=== PATIENT | male | born 1940 | race Two or more races ===

== ENCOUNTER 2016-11-12 01:17 | Inpatient (IN) | payer OTHER ==
[2016-11-12] MEDS ORDERED: PANTOPRAZOLE SODIUM 80 MG in SODIUM CHLORIDE 100 ML IVPB ONE (01:28)
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
[2016-11-12 02:08] LABS: BASOPHIL 0.1 % (0-2.0); EOSINOPHIL 0.7 % (0-4.5); MCH 32.3 pg (25.7-33.7); MCHC 33.1 g/dl (32.0-35.9); MEAN CELL VOLUME 97.6 fl (80-96); MEAN PLT VOLUME 11.5 fl (7.5-11.1); NEUTROPHILS 88.8 % (42.8-82.8); PLATELET COUNT 43 K/MM3 (134-434); RDW 23.4 % (11.9-15.9); WHITE BLOOD COUNT 4.1 K/mm3 (4.0-10.0)
[2016-11-12] MEDS ORDERED: NOREPINEPHRINE BITARTRATE 4 MG/4 ML ML IV ONE ×3 (02:18→23:10)
[2016-11-12 02:20] LABS: INR 1.74 (0.82-1.09); PROTHROMBIN TIME (PATIENT) 19.4 SEC (9.98-11.88)
[2016-11-12] MEDS ORDERED: PANTOPRAZOLE SODIUM 100 ML IVPB ONE (02:25)
[2016-11-12] MEDS ORDERED: PANTOPRAZOLE SODIUM 40 MG VIAL ONE (02:27)
[2016-11-12 02:33] LABS: ALBUMIN 1.7 g/dl (3.4-5.0); CALCIUM 7.5 mg/dL (8.5-10.1); CREATININE 2.1 mg/dL (0.7-1.3); MAGNESIUM 1.8 mg/dL (1.8-2.4); PHOSPHOROUS 3.3 mg/dL (2.5-4.9)
[2016-11-12 02:35] LABS: BILIRUBIN,TOTAL 0.7 mg/dL (0.2-1.0); TOT PROT 4.8 g/dl (6.4-8.2); TROPONIN I 0.04 ng/ml (0.00-0.05)
[2016-11-12] MEDS: NOREPINEPHRINE BITARTRATE 4,000 MCG in DEXTROSE 5%-WATER - 496 ML IV SCH (02:37)
[2016-11-12] MEDS ORDERED: SODIUM CHLORIDE 0.9% 500 ML INFUS.BAG IV ONE (02:55)
[2016-11-12] MEDS ORDERED: CEFEPIME HCL 2 GM VIAL (RESTRICTED TO ID) IVPB ONE (02:56)
[2016-11-12] MEDS ORDERED: VANCOMYCIN 1,000 MG in DEXTROSE 5%-WATER - 250 ML IVPB ONE (02:56)
[2016-11-12] MEDS ORDERED: VANCOMYCIN 1 GRAM (PRE-DOCKED) 250 ML IVPB ONE (03:18)
[2016-11-12] MEDS ORDERED: DOBUTAMINE 250 MG/D5W - 250 ML IV SCH (03:30)
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
[2016-11-12] MEDS: ALBUMIN HUMAN 25% 100 ML VIAL IVPB SCH ×4 (04:54→06:30)
[2016-11-12] MEDS ORDERED: FUROSEMIDE 40 MG/4 ML INJECTABLE VIAL IVPUSH ONE (06:28)
[2016-11-12 07:05] LABS: PLATELET ESTIMATE MOD DECREASED (NORMAL); POIKILOCYTOSIS 1+
[2016-11-12 07:06] LABS: ANISOCYTOSIS 3+
--- NOTE | 2016-11-12 07:29 | PN ---
Teaching Attending Note Name of Resident: Polo Doyle ATTENDING PHYSICIAN STATEMENT I saw and evaluated the patient. I reviewed the resident's note and discussed the case with the resident. I agree with the resident's findings and plan as documented. SUBJECTIVE: 76 y/o Male sent from [facility] for coffee ground drainage from peg tube. As per son patient recently discharged from [facility] yesterday and was reported to be stable. however son reports that patient was edematous since last Monday and for sometime before that. Patient is with trache and noncommunicative. OBJECTIVE: General: noncommunicative, responds to painful stimuli. Anasarca. HEENT: PERRLA, oral mucosa with dried blood and clenched teeth. CVS: RRR Lungs: Trachea and vent dependent with clear secretions Abd: Soft, peg with coffee ground drainage. Ext: b/l dried gangrene, lower ext. Musculoskeletal: Back and sacrum with multiple decubitus ulcers 1x2 to 9x9 : gamez no drainage, penis and testicles edematous. CBCD WBC 4.1 K/mm3 (4.0-10.0) 11/12/16 01:41 RBC 2.37 M/mm3 (4.00-5.60) L 11/12/16 01:41 Hgb 7.7 GM/dL (11.7-16.9) L 11/12/16 01:41 Hct 23.2 % (35.4-49) L 11/12/16 01:41 MCV 97.6 fl (80-96) H 11/12/16 01:41 MCHC 33.1 g/dl (32.0-35.9) 11/12/16 01:41 RDW 23.4 % (11.9-15.9) H 11/12/16 01:41 Plt Count 43 K/MM3 (134-434) L 11/12/16 01:41 MPV 11.5 fl (7.5-11.1) H 11/12/16 01:41 CMP Sodium 146 mmol/L (136-145) H 11/12/16 01:41 Potassium 3.8 mmol/L (3.5-5.1) 11/12/16 01:41 Chloride 107 mmol/L (98-107) 11/12/16 01:41 Carbon Dioxide 29 mmol/L (21-32) 11/12/16 01:41 Anion Gap 10 (8-16) 11/12/16 01:41 BUN 62 mg/dL (7-18) H 11/12/16 01:41 Creatinine 2.1 mg/dL (0.7-1.3) H 11/12/16 01:41 Creat Clearance w eGFR 30.78 (>60) 11/12/16 01:41 Random Glucose 110 mg/dL (74-106) H 11/12/16 01:41 Calcium 7.5 mg/dL (8.5-10.1) L 11/12/16 01:41 Total Bilirubin 0.7 mg/dL (0.2-1.0) 11/12/16 01:41 AST 109 U/L (15-37) H 11/12/16 01:41 ALT 78 U/L (12-78) 11/12/16 01:41 Alkaline Phosphatase 228 U/L (45-117) H 11/12/16 01:41 Total Protein 4.8 g/dl (6.4-8.2) L 11/12/16 01:41 Albumin 1.7 g/dl (3.4-5.0) L 11/12/16 01:41 CARDIAC ENZYMES Creatine Kinase 28 IU/L (39-308) L 11/12/16 01:41 Troponin I 0.04 ng/ml (0.00-0.05) 11/12/16 01:41 ASSESSMENT AND PLAN: Severe Sepsis with MOD- admit to ICU Levophed Lasix 40mg IVP stat Protonix drip Monitor VS closely Multiple decubitus ulcers Vancomycin and cefepime Wound care daily ID consult
[2016-11-12 08:22] LABS: BASOPHIL 0.4 % (0-2.0); EOSINOPHIL 0.5 % (0-4.5); MCH 31.9 pg (25.7-33.7); MCHC 32.8 g/dl (32.0-35.9); MEAN CELL VOLUME 97.3 fl (80-96); MEAN PLT VOLUME 9.7 fl (7.5-11.1); NEUTROPHILS 88.1 % (42.8-82.8); PLATELET COUNT 48 K/MM3 (134-434); RDW 23.7 % (11.9-15.9); WHITE BLOOD COUNT 5.8 K/mm3 (4.0-10.0)
[2016-11-12 08:36] LABS: INR 1.69 (0.82-1.09); PROTHROMBIN TIME (PATIENT) 18.8 SEC (9.98-11.88)
[2016-11-12] MEDS ORDERED: CEFEPIME HCL 1 GM VIAL (RESTRICTED TO ID) IVPB ONE (09:15)
[2016-11-12 09:24] LABS: ALBUMIN 2.6 g/dl (3.4-5.0); CALCIUM 7.6 mg/dL (8.5-10.1); MAGNESIUM 1.7 mg/dL (1.8-2.4)
[2016-11-12 09:30] LABS: BILIRUBIN,TOTAL 1.1 mg/dL (0.2-1.0); CREATININE 2.1 mg/dL (0.7-1.3); PHOSPHOROUS 3.1 mg/dL (2.5-4.9); TOT PROT 4.9 g/dl (6.4-8.2); TROPONIN I 0.08 ng/ml (0.00-0.05)
--- NOTE | 2016-11-12 09:38 | PN ---
Physical Exam: SUBJECTIVE: Patient seen and examined Patient is lying in bed nonverbal, positive for tracheostomy. OBJECTIVE: Vital Signs Temperature 91.4 F L 11/12/16 03:49 Pulse Rate 77 11/12/16 05:30 Respiratory Rate 26 H 11/12/16 07:20 Blood Pressure 90/60 11/12/16 05:30 O2 Sat by Pulse Oximetry (%) 100 11/12/16 04:17 GENERAL: The patient is nonverbal, lying in bed , positive for hypothermic blankets. contracted. HEAD: Normal with no signs of trauma. EYES: PERRL, eys closed , sclera anicteric, conjunctiva clear. ENT: moist oral mucosa , nares patent NECK: positive for trach. LUNGS: decreased Breath sounds BL, no accessory muscle use. Otherwise CTA , On ventilator, s/p tracheostomy HEART: Regular rate and rhythm, S1, S2 positive . ABDOMEN: Soft, nontender, nondistended, positive for G-tube, positive for pus drainage around the Gtube with necrosis around the tube . EXTREMITIES: 2+ pulses, warm, well-perfused, no edema. LLE IO access MUSCULOSKELETAL: Contracted, arms contracted, jaw clenched. Anasarca NEUROLOGICAL: Cranial nerves II through XII grossly intact. gag reflex present, responds to painful stimuli. PSYCH: Unable to access SKIN: Warm, dry, normal turgor,multiple pressure ulcers (on feet, calves, forehead, back, gluteal region) Laboratory Results - last 24 hr 11/12/16 11/12/16 08:10 08:10 WBC 5.8 D RBC 2.22 L Hgb 7.1 L Hct 21.6 L MCV 97.3 H MCHC 32.8 RDW 23.7 H Plt Count 48 L MPV 9.7 D Neutrophils % 88.1 H Lymphocytes % 9.8 Monocytes % 1.2 L Eosinophils % 0.5 Basophils % 0.4 D INR 1.69 H Active Medications Generic Name Dose Route Start Last Admin Trade Name Freq PRN Reason Stop Dose Admin Norepinephrine Bitartrate 4, 500 mls @ 37.5 mls/hr 11/12/16 02:30 11/12/16 05: 30 000 mcg/ Dextrose IV 10 mcg/min TITR STEVEN Titration Protocol 5 MCG/MIN Dobutamine HCl/Dextrose 250 mls @ 29.257 mls/hr 11/12/16 03:30 Dobutamine 250 Mg/D5w - IV TITR STEVEN Protocol 5 MCG/KG/MIN Pantoprazole Sodium 80 mg/ 100 mls @ 10 mls/hr 11/12/16 06:30 Sodium Chloride IVPB Q10H STEVEN 8 MG/HR ASSESSMENT/PLAN: 76 y/o M w/PMH of hypotension, HLD, hypothyroidism, DM, COPD, ESRD, GERD, s/p tracheostomy, s/p gastrostomy presented to ER from [facility] for coffee ground emesis. Pt found to be contracted, hypotensive, hypothermic, w/ anasarca requiring pressors. # Septic shock due to Pus around the G-tube and multiple pressure ulcers (on feet, calves, forehead, back, gluteal region), Unstageable decubetis ulcer with possible Osteomyelitis. continue john hugger ,continue levophed ; goal MAP > 65; vanco x 1 dose given in ER and cefepime in ER and one dose now, ID consulted will see the patient. #Anemia secondary to Upper GI bleed ;IV protonix drip continue, hemoglobin 7.1 now, will get GI Dr. Nicolas to see the patient. # Anasarca secondary to renal failure vs malnutrition/protein malnutrition s/p albumin given in Ed. # Acute renal failure over chronic RF possible due to hypoperfusion /septic shock ; Randolph in place but no urinary output; Nephro consult to see the patient for possible dialysis if he qualifies # Acuet Transaminitis due to septic shock, continue monitoring LFTs, with elevated INR 1.74 Poor Prognosis with multi organ failure, will get Palliative care involved. Code status: son Griselda Jimenez . will discuss with his mother ( the of the patient) regarding DNR status DVT: Anticoagulation is contraindicated since having GI bleed, SCDs contraindicated since has anasarca with multiple pressure ulcers. Visit type - Emergency Visit Emergency Visit: Yes ED Registration Date: 11/12/16 Care time: The patient presented to the Emergency Department on the above date and was hospitalized for further evaluation of their emergent condition. - New Patient This patient is new to me today: Yes Date on this admission: 11/12/16 - Critical Care Critical Care patient: Yes Total Critical Care Time (in minutes): 40 Critical Care Statement: The care of this patient involved high complexity decision making to prevent further life threatening deterioration of the patient 's condition and/or to evalute & treat vital organ system(s) failure or risk of failure.
[2016-11-12 09:43] VITALS: BMI 28.0
--- NOTE | 2016-11-12 10:22 | CON.NEP ---
Consult Consult Specialty:: Nephrology Referred by:: Dr Mattson Reason for Consultation:: CKD - History of Present Illness History of Present Illness: 76 y/o M with PMH of CVA with PEG, multiple decubiti, DM, COPD, CKD, hypothyroidism GERD, hypotension on Midodrine ,s/p tracheostomy, s/p gastrostomy that was referred to ER from [facility] for coffee ground emesis. Pt unable to contribute to the history and noted to be contracted with arms flexed to the chest. Asked to see pt for his CKD Since admission to ICU he has been on Levophed at 10 mcg/min and Ventilator set with FiO2 at 40%. Being treated for sepsis and apparently has a large sacral decubitus that could not be staged. Hypothermic with increased Lactic acid level - History Source History Provided By: Medical Record - Alcohol/Substance Use Hx Alcohol Use: No - Smoking History Smoking history: Never smoked - Social History Usual Living Arrangement: [facility] Home Medications - Allergies Allergies/Adverse Reactions: Allergies Allergy/AdvReac Type Severity Reaction Status Date / Time No Known Allergies Allergy Verified 11/12/16 02:07 - Home Medications Home Medications: Ambulatory Orders Atorvastatin Ca [Lipitor] 80 mg PO HS 11/12/16 Esomeprazole Magnesium 40 mg PO DAILY 11/12/16 Ferrous Sulfate 325 mg PO DAILY 11/12/16 Hydrocortisone 20 mg PO DAILY 11/12/16 Levothyroxine [Synthroid -] 50 mcg PO DAILY 11/12/16 Magnesium Hydroxide [Milk of Magnesia] 400 mg PO DAILY 11/12/16 Midodrine HCl 5 mg PO DAILY 11/12/16 Sevelamer Carbonate [Renvela] 800 mg PO DAILY 11/12/16 Vitamin B Comp W-C [Nephro-Daily -] 1 tablet PO DAILY 11/12/16 Nephrology Consult - Height Height: 5 ft 5 in - Weight Weight: 168 lb 6.4 oz - BMI Body Mass Index (BMI): 28.0 - Lab Results CBC,BMP: CBC, BMP 11/12/16 08:10 11/12/16 08:10 Anion Gap: Anion Gap Anion Gap 14 (8-16) 11/12/16 08:10 - Imaging Cat Scan: Report Reviewed EKG: Image Reviewed (NSR with low voltage and slow R wave progression) - Physical Examination Vital Signs: Vital Signs Temperature 91.6 F L 11/12/16 05:26 Pulse Rate 60 11/12/16 07:00 Respiratory Rate 26 H 11/12/16 07:20 Blood Pressure 104/70 11/12/16 07:00 O2 Sat by Pulse Oximetry (%) 100 11/12/16 05:26 HENT: Yes: Other (Tracheostomy on ventilator) Cardiovascular: Yes: S1, S2. No: JVD Respiratory: Yes: Other (Equjal air entry B/L) Gastrointestinal: Yes: Other (Distended with GT) Edema: No Integumentary: Yes: Other (Decubiti of the LE) Neurological: Yes: Other (Contracted and poorly responsive) Assessment/Plan Impression Hypotension and respiratory failure on pressor and ventilator respectivelywith sepsis and GIB CKD by history in this pt with multiorgan failure now with possible acute component Sepsis in pt with multiple decubiti Anemia with recent GIB S/P CVA with contractures DM Hypothyroidism Plan UA Renal and U Bladder US Sepsis w/u Empiric Abx Transfuse PRBCs which should improve the BP and allow tapering of the pressor followed by Maintenance IVF Consider Palliative, Care, GI and Surgery consult Thank You Discussed with Hospitalist Dr Hylton
[2016-11-12] MEDS ORDERED: PT OWN MED DRAWER 7, Y5N ONE (10:29)
--- NOTE | 2016-11-12 10:55 | CONSULT ---
Consult Consult Specialty:: PULMONARY/CCM Referred by:: Dr. Mattson Reason for Consultation:: septic shock - History of Present Illness Chief Complaint: coffee ground emesis History of Present Illness: 76yo male with h/o CVA in 2009, vent dependent respiratory failure s/p tracheostomy, PEG, anoxic encephalopathy, chronic hypotension on midodrine, DM, COPD, ESRD on HD, hyperlipidemia, hypothyroidism, recent prolonged admission at [facility] for pneumonia, sacral decubitus ulcer infections, septic shock requiring ICU course, recently discharged who was sent from the [place] for coffee ground emesis. Pt nonverbal, unresponsive, unable to provide further history at this time. Hypothermic and hypotensive, started on IV antibiotics and levophed gtt via shiley line in RLE. Pt with unstageable sacral ulcer. 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 Pulmonary: Yes: COPD Renal/: Yes: Renal Failure, Hemodialysis Endocrine: Yes: Diabetes Mellitus, Hypothyroidism - Alcohol/Substance Use Hx Alcohol Use: No - Smoking History Smoking history: Never smoked - Social History Usual Living Arrangement: Residential Home Medications - Allergies Allergies/Adverse Reactions: Allergies Allergy/AdvReac Type Severity Reaction Status Date / Time No Known Allergies Allergy Verified 11/12/16 02:07 - Home Medications Home Medications: Ambulatory Orders Atorvastatin Ca [Lipitor] 80 mg PO HS 11/12/16 Esomeprazole Magnesium 40 mg PO DAILY 11/12/16 Ferrous Sulfate 325 mg PO DAILY 11/12/16 Hydrocortisone 20 mg PO DAILY 11/12/16 Levothyroxine [Synthroid -] 50 mcg PO DAILY 11/12/16 Magnesium Hydroxide [Milk of Magnesia] 400 mg PO DAILY 11/12/16 Midodrine HCl 5 mg PO DAILY 11/12/16 Sevelamer Carbonate [Renvela] 800 mg PO DAILY 11/12/16 Vitamin B Comp W-C [Nephro-Daily -] 1 tablet PO DAILY 11/12/16 Family Disease History - Family Disease History Other Family History: non-contributory Review of Systems Unable to obtain ROS, reason: pt unresponsive Physical Exam Vital Signs: Vital Signs Temperature 91.6 F L 11/12/16 05:26 Pulse Rate 60 11/12/16 07:00 Respiratory Rate 12 11/12/16 10:37 Blood Pressure 104/70 11/12/16 07:00 O2 Sat by Pulse Oximetry (%) 100 11/12/16 05:26 Constitutional: Yes: Other (vented, unresponsive) Eyes: Yes: Conjunctiva Clear, EOM Intact HENT: Yes: Atraumatic, Normocephalic Neck: Yes: Supple, Trachea Midline Cardiovascular: Yes: Regular Rate and Rhythm Respiratory: Yes: Diminished (distant) Gastrointestinal: Yes: Normal Bowel Sounds, Soft. No: Tenderness Edema: Yes Labs: CBC, BMP 11/12/16 08:10 11/12/16 08:10 Imaging - Results Chest X-ray: Report Reviewed, Image Reviewed (left effusion, bibasilar atelectasis) Assessment/Plan r/o Sacral Decubitus Ulcer Infection r/o Pneumonia Septic Shock Lactic Acidosis ESRD on HD Chronic Hypotension h/o CVA Anoxic Encephalopathy Anemia - continue antibiotics - f/u cultures - surgery eval of ulcers - midodrine - taper levophed gtt to maintain MAP >50 - HD per renal - transfuse PRBC with HD - poor prognosis for any meaningful recovery, will get palliative care evaluation - DVT/GI prophylaxis CCT 40'
--- NOTE | 2016-11-12 11:39 | CON.CARD ---
Consult Consult Specialty:: Cardiology Referred by:: Hospitalist Reason for Consultation:: Bradycardia - History of Present Illness Chief Complaint: admitted for septic shock History of Present Illness: 76 year old man with a history of hypotension on midodrine, hld, DMII, COPD, ESRD on HD, CVA 2009, tracheostomy with vent dependence, recent long hospital stay at [facility] with septic shock, anoxic encephalopathy, sent to [place], now admitted with possible UGIB and septic shock. Pt noted to have sinus bradycardia on tele during admission with HR as low as 39bpm. Pt seen and examined today, unresponsive. History obtained from the chart. - History Source History Provided By: Medical Record Limitations to Obtaining History: Unresponsive - Past Medical History SPINNER HAND: Yes: CVA Cardio/Vascular: Yes: Hyperlipdemia Pulmonary: Yes: COPD Renal/: Yes: Renal Failure, Hemodialysis Endocrine: Yes: Diabetes Mellitus, Hypothyroidism - Alcohol/Substance Use Hx Alcohol Use: No - Smoking History Smoking history: Never smoked - Social History Usual Living Arrangement: Skilled Nursing Home Medications - Allergies Allergies/Adverse Reactions: Allergies Allergy/AdvReac Type Severity Reaction Status Date / Time No Known Allergies Allergy Verified 11/12/16 02:07 - Home Medications Home Medications: Ambulatory Orders Atorvastatin Ca [Lipitor] 80 mg PO HS 11/12/16 Esomeprazole Magnesium 40 mg PO DAILY 11/12/16 Ferrous Sulfate 325 mg PO DAILY 11/12/16 Hydrocortisone 20 mg PO DAILY 11/12/16 Levothyroxine [Synthroid -] 50 mcg PO DAILY 11/12/16 Magnesium Hydroxide [Milk of Magnesia] 400 mg PO DAILY 11/12/16 Midodrine HCl 5 mg PO DAILY 11/12/16 Sevelamer Carbonate [Renvela] 800 mg PO DAILY 11/12/16 Vitamin B Comp W-C [Nephro-Daily -] 1 tablet PO DAILY 11/12/16 Family Disease History - Family Disease History Family History: Unable to Obtain Other Family History: non-contributory Review of Systems - Review of Systems Constitutional: denies: No Symptoms, Chills, Diaphoresis, Fever, Lethargy, Loss of Appetite, Malaise, Night Sweats, Unintentional Wgt. Loss, Weakness, Other Eyes: denies: No Symptoms, Blind Spots, Blurred Vision, Double Vision, Eye Pain , Floaters, Photophobia, Recent Change in Vision, Other HENT: denies: No Symptoms, Difficult Swallowing, Ear Discharge, Ear Pain, Epistaxis, Gingival Bleeding, Hearing Loss, Mouth Swelling, Nasal Congestion, Ocular Prosthesis, Throat Pain, Toothache, Ringing in Ears, Other Neck: denies: No Symptoms, Decreased ROM, Lumps, Pain on Movement, Stiffness, Swollen Glands, Tenderness, Other Cardiovascular: denies: No Symptoms, Chest Pain, Edema, Palpitations, Shortness of Breath, Other Respiratory: denies: No Symptoms, Cough, Exercise Intolerance, Hemoptysis, Orthopnea, PND, Snoring, SOB, SOB on Exertion, Wheezing, Other Gastrointestinal: reports: Vomiting Blood. denies: No Symptoms, Abdominal Pain , Bloating, Constipation, Diarrhea, Dysphagia, Indigestion, Melena, Nausea, Rectal Bleeding, Vomiting, Other Genitourinary: denies: No Symptoms, Burning, Discharge, Dysuria, Flank Pain, Frequency, Hematuria, Incontinence, Lesions, Menses, Pain, Testicular Mass, Testicular Pain, Testicular Swelling, Urgency, Vaginal Bleeding, Other Breasts: denies: No Symptoms Reported, See HPI, Breast Implants, Discharge from Nipple, Lumps, Pain, Skin Changes, Other Musculoskeletal: denies: No Symptoms, Back Pain, Crepitus, Decreased ROM, Extremity Pain, Joint Pain, Joint Swelling, Muscle Pain, Muscle Cramps, Muscle Weakness, Other Integumentary: denies: No Symptoms, Blister, Bruising, Change in Color, Eczema, Erythema, Incision, Lesions, Lump, Pallor, Pruritis, Rash, Wound, Other Neurological: denies: No Symptoms, Change in LOC, Change in Speech, Confusion, Dizziness, Headache, Incoordination, Numbness, Parasthesia, Pre-Existing Deficit , Seizure, Syncope, Tremors, Unsteady Gait, Weakness, Other Endocrine: denies: No Symptoms, Excessive Sweating, Flushing, Increased Hunger, Increased Thirst, Intolerance to Cold, Intolerance to Heat, Unexplained Weight Gain, Unexplained Weight Loss, Other Hematology/Lymphatic: denies: No Symptoms, Easily Bruised, Excessive Bleeding, Swollen Glands, Other Psychiatric: denies: No Symptoms, Altered Sleep Pattern, Anxiety, Depression, Hallucinations, Panic, Paranoia, Suicidal, Other - Risk Factors Known Risk Factors: Yes: Age, Diabetes Mellitus, Hypercholesterolemia, Physical Inactivity Vital Signs: Vital Signs Temperature 91.6 F L 11/12/16 05:26 Pulse Rate 60 11/12/16 07:00 Respiratory Rate 12 11/12/16 10:37 Blood Pressure 104/70 11/12/16 07:00 O2 Sat by Pulse Oximetry (%) 100 11/12/16 05:26 Constitutional: Yes: No Distress, Calm Eyes: Yes: PERRL HENT: Yes: Atraumatic, Normocephalic Neck: Yes: Other (tracheostomy) Respiratory: Yes: Regular, Mechanically Ventilated. No: Rales, Rhonchi, Wheezes Gastrointestinal: Yes: Normal Bowel Sounds, Soft. No: Distention, Tenderness Cardiovascular: Yes: Bradycardia. No: Tachycardia, Pulse Irregular, Gallop, Rub , Varicosities JVD: No Carotid Bruit: No PMI: Non-Displaced Heart Sounds: Yes: S1, S2. No: Split S2, S3, S4, Clicks, Gallop, Rub, Bruit Murmur: No: Systolic Murmur, Diastolic Murmur Musculoskeletal: Yes: Muscle Weakness Edema: No Peripheral Pulses WNL: Yes Peripheral Pulses: 2+ Left Doralis Pedis, 2+ Right Dorsalis Pedis Neurological: Yes: Unresponsive. No: Alert, Oriented Psychiatric: No: Alert, Oriented - Other Data Labs, Other Data: CBC, BMP 11/12/16 08:10 11/12/16 08:10 INR, PTT INR 1.69 (0.82-1.09) H 11/12/16 08:10 Troponin, BNP 11/12/16 08:10 Troponin I 0.08 H D Troponin, BNP 11/12/16 08:10 Troponin I 0.08 H D reviewed Imaging - Results Chest X-ray: Report Reviewed, Image Reviewed EKG: Report Reviewed, Image Reviewed Other: Report Reviewed, Image Reviewed (tele-sinus bradycardia 39-50sbpm, occ PVC, no sig arrhythmia) Assessment/Plan 76 year old man with a history of hypotension on midodrine, hld, DMII, COPD, ESRD on HD, CVA 2009, tracheostomy with vent dependence, recent long hospital stay at [facility] with septic shock, anoxic encephalopathy, sent to [place], now admitted with possible UGIB and septic shock. Pt noted to have sinus bradycardia on tele during admission with HR as low as 39bpm. Pt seen and examined today, unresponsive. History obtained from the chart. Bradycardia-sinus -likely related to sepsis and septic shock -currently HR 50s -unlikely responsible for hypotension which is more likely due to history of chronic hypotension and sepsis -no current indication for pacemaker -do not need to chemically increase HR currently, ok to cont Levophed as vasopressor, if needed can use dopamine -check TFT's -avoid any AV eda blocking medications -cont tele monitoring in the ICU -would be helpful to obtain records from [facility] as to any cardiac work up that was done
--- NOTE | 2016-11-12 13:51 | CONSULT ---
Consult Consult Specialty:: infectious diseases Reason for Consultation:: septic shock - History of Present Illness History of Present Illness: Patient is demented,does not verbalize nor opens his eyes all the history taken from the charts 76 y/o M w/PMH of hypotension, HLD, hypothyroidism, DM, COPD, ESRD, GERD, s/p tracheostomy, s/p gastrostomy presented to ER from [facility] for coffee ground emesis. Pt is non-responsive and history is unable to be obtained. According to pt's son Matthew Jimenez who noted that his father had CVA in 2009 after which he was placed in [place] for rehab and was continuing to improve but not returning back to baseline. Pt had tracheostomy and g-tube placed approximately 1 year ago. He was then in [place] where his health declined. He was recently at [facility] and discharged to [place]. He has been at for approximately 2 months. Before this he was at [facility] for approximately one year. In approx december 2015 son noted ulcers and took pictures and says since then they have worsened. After being hospitalized family requested a change of DC and was sent to [facility] 2 months ago. According to the story patient was discharged from [facility] to the [facility] few days back and within a day he was send here from the [facility] apparently patient came in with septic shock and is on pressors at the moment patient as mentioned above has multiple ulcers present all over his body which are draining purulent material also patient has a feeding around which the pus is coming out patient is on dialysis with the catheter in the leg patient has been seen by nephro he is in the icu in a critical condition - History Source History Provided By: Medical Record, Transfer Record Limitations to Obtaining History: Clinical Condition - Past Medical History 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 Cardio/Vascular: Yes: Hyperlipdemia Pulmonary: Yes: COPD Renal/: Yes: Renal Failure, Hemodialysis Endocrine: Yes: Diabetes Mellitus, Hypothyroidism - Alcohol/Substance Use Hx Alcohol Use: No - Smoking History Smoking history: Never smoked - Social History Usual Living Arrangement: Longterm Home Medications - Allergies Allergies/Adverse Reactions: Allergies Allergy/AdvReac Type Severity Reaction Status Date / Time No Known Allergies Allergy Verified 11/12/16 02:07 - Home Medications Home Medications: Ambulatory Orders Atorvastatin Ca [Lipitor] 80 mg PO HS 11/12/16 Esomeprazole Magnesium 40 mg PO DAILY 11/12/16 Ferrous Sulfate 325 mg PO DAILY 11/12/16 Hydrocortisone 20 mg PO DAILY 11/12/16 Levothyroxine [Synthroid -] 50 mcg PO DAILY 11/12/16 Magnesium Hydroxide [Milk of Magnesia] 400 mg PO DAILY 11/12/16 Midodrine HCl 5 mg PO DAILY 11/12/16 Sevelamer Carbonate [Renvela] 800 mg PO DAILY 11/12/16 Vitamin B Comp W-C [Nephro-Daily -] 1 tablet PO DAILY 11/12/16 Family Disease History - Family Disease History Other Family History: non-contributory Review of Systems Unable to obtain ROS, reason: unable to obtain Physical Exam Vital Signs: Vital Signs Temperature 91.6 F L 11/12/16 05:26 Pulse Rate 60 11/12/16 07:00 Respiratory Rate 14 11/12/16 12:00 Blood Pressure 104/70 11/12/16 07:00 O2 Sat by Pulse Oximetry (%) 100 11/12/16 05:26 Constitutional: Yes: Other (non verbal no opening eyes) Eyes: Yes: Conjunctiva Clear HENT: Yes: Other Neck: Yes: Other (trach and vent) Cardiovascular: Yes: Regular Rate and Rhythm Respiratory: Yes: Mechanically Ventilated, Rhonchi, Other (trach in place) Gastrointestinal: Yes: Soft, Other (peg in place pus coming out of the site) Renal/: Yes: Randolph Present, Scrotal Edema, Other (patient has scrotal edema) Musculoskeletal: Yes: Other Extremities: Yes: Other Integumentary: Yes: Erythema, Pressure Ulcer (multiple), Skin Tear (multiple sites), Other (patient has decubitus ulcer all over the body with multiple other non healing ulce) Wound/Incision: Yes: Draining (from multiple sites) Neurological: Yes: Other Psychiatric: Yes: Other Labs: CBC, BMP 11/12/16 08:10 11/12/16 08:10 Imaging - Results Chest X-ray: Report Reviewed, Image Reviewed Assessment/Plan patient with hypotension and hypothermia now in icu multiple medical problems decubitus ulcer multiple pressure ulcer infected peg tube site septic shock lactic acidosis hypotension hypthermia esrd cva plan i have started patient on clinda and zosyn warming pressor wound cx await for all other report poor prognosis cc time 60 time
--- NOTE | 2016-11-12 14:08 | PN ---
Progress Note (short form) - Note Progress Note: Renal addendum Pt apparently has a dialysis catheter in place that is located in the upper thigh so not seen when i looked in the groin regions earlier. As per Dr Aranda and Dr Montanez, who know the pt from [facility], it had been difficult to dialyze the pt because of hypotension in the past even with the Midodrine Pt remains on the Levophed No acute indication for HD at this time Would transfuse PRBCs and taper off the levophed at this time Also agree with the stress doses of steroids since pt has been on steroids Pt is a poor candidate for maintenance dialysis which will not improve this pt' s quality of life and may even hasten his demise given his hemodynamic instabilty at this time. Palliative care consult advised Discussed with the Hospitalist and CCM Dr Hylton
[2016-11-12] MEDS: HYDROCORTISONE SOD SUCCINATE 100 MG/2 ML VIAL IVPB SCH ×2 (14:15→18:25)
[2016-11-12] MEDS: PANTOPRAZOLE SODIUM 80 MG in SODIUM CHLORIDE 100 ML IVPB SCH ×2 (15:37)
[2016-11-12] MEDS: PIPERACILLIN/TAZOB 2.25 GM 50 ML IVPB SCH ×2 (16:20→18:25)
[2016-11-12] MEDS: CLINDAMYCIN 600MG PREMIX IVPB 50 ML IVPB SCH ×2 (16:21→21:30)
--- NOTE | 2016-11-12 18:17 | CON.GI ---
[id number] 4d GI bleed, sepsis - History of Present Illness Chief Complaint: septic shock History of Present Illness: 76 M well-known to myself, with a h/o, HLD, hypothyroid, DM, COPD, ESRD, GERD, s /p tracheostomy, s/p gastrostomy presented to ER from [facility] for coffee ground emesis.On admission, the patient was noted to be in septic shock, with profound hypotension, and dark material in his PEG tube. I saw this patient at [facility] and was asked to place a Peg tube by the family. I spoke with them at length about what I perceived of as the lack of benefit that would be derived from aggressive nutrition in this very debilitated patient , and the risks involved with PEG in this very compromised man including bleeding, infection, and aspiration of TF to name a few. [id number], the family insisted on G tube placement and at the time the patient was deemed stable enough to tolerate the procedure, which was performed without incident. He is currently in septic shock, on propofol drip and pressors. - History Source History Provided By: Medical Record Limitations to Obtaining History: Clinical Condition - Past Medical History FISHER TROLL LINE: Yes: CVA Cardio/Vascular: Yes: Hyperlipdemia Pulmonary: Yes: COPD Renal/: Yes: Renal Failure, Hemodialysis Endocrine: Yes: Diabetes Mellitus, Hypothyroidism - Alcohol/Substance Use Hx Alcohol Use: No - Smoking History Smoking history: Never smoked - Social History Usual Living Arrangement: [facility] Home Medications - Allergies Allergies/Adverse Reactions: Allergies Allergy/AdvReac Type Severity Reaction Status Date / Time No Known Allergies Allergy Verified 11/12/16 02:07 - Home Medications Home Medications: Ambulatory Orders Atorvastatin Ca [Lipitor] 80 mg PO HS 11/12/16 Esomeprazole Magnesium 40 mg PO DAILY 11/12/16 Ferrous Sulfate 325 mg PO DAILY 11/12/16 Hydrocortisone 20 mg PO DAILY 11/12/16 Levothyroxine [Synthroid -] 50 mcg PO DAILY 11/12/16 Magnesium Hydroxide [Milk of Magnesia] 400 mg PO DAILY 11/12/16 Midodrine HCl 5 mg PO DAILY 11/12/16 Sevelamer Carbonate [Renvela] 800 mg PO DAILY 11/12/16 Vitamin B Comp W-C [Nephro-Daily -] 1 tablet PO DAILY 11/12/16 Family Disease History - Family Disease History Other Family History: non-contributory Physical Exam-GI Vital Signs: Vital Signs Temperature 93.8 F L 11/12/16 14:00 Pulse Rate 55 L 11/12/16 14:00 Respiratory Rate 22 11/12/16 16:08 Blood Pressure 85/51 11/12/16 14:00 O2 Sat by Pulse Oximetry (%) 100 11/12/16 05:26 Labs: CBC, BMP 11/12/16 08:10 11/12/16 08:10 INR, PTT INR 1.69 (0.82-1.09) H 11/12/16 08:10 Assessment/Plan G tube site evaluated. Dark material noted in PEG tube. No induration noted and no pus can be expressed around the GT site, despite notes to the contrary earlier. There is no erythema. Patient needs central line access He needs to be transfused blood, 2 units at this time He should get 2 units FFP He is on IV AB Protonix drip Follow CBC closely Poor candidate for procedures at this time unless there is a catastrophic bleed.
[2016-11-13] MEDS: NOREPINEPHRINE BITARTRATE 4,000 MCG in DEXTROSE 5%-WATER - 496 ML IV SCH (00:30)
[2016-11-13] MEDS: HYDROCORTISONE SOD SUCCINATE 100 MG/2 ML VIAL IVPB SCH ×3 (01:31→17:33)
[2016-11-13] MEDS: PIPERACILLIN/TAZOB 2.25 GM 50 ML IVPB SCH ×4 (01:31→17:35)
[2016-11-13] MEDS: CLINDAMYCIN 600MG PREMIX IVPB 50 ML IVPB SCH ×3 (03:00→16:39)
[2016-11-13] MEDS: PANTOPRAZOLE SODIUM 80 MG in SODIUM CHLORIDE 100 ML IVPB SCH ×2 (04:00→17:31)
[2016-11-13 05:44] LABS: BASOPHIL 0.1 % (0-2.0); EOSINOPHIL 0.1 % (0-4.5); MCH 31.9 pg (25.7-33.7); MCHC 33.2 g/dl (32.0-35.9); MEAN CELL VOLUME 96.1 fl (80-96); MEAN PLT VOLUME 10.4 fl (7.5-11.1); NEUTROPHILS 94.6 % (42.8-82.8); PLATELET COUNT 41 K/MM3 (134-434); RDW 23.4 % (11.9-15.9); WHITE BLOOD COUNT 6.9 K/mm3 (4.0-10.0)
[2016-11-13 08:20] LABS: ARTERIAL BLD GAS O2 SATURATION 99.9 % (90-98.9); ARTERIAL BLOOD GAS BASE EXCESS 2.2 meq/l (-2-2); ARTERIAL BLOOD GAS HCO3 24.3 meq/L (22-26); ARTERIAL BLOOD GAS pH 7.55 (7.35-7.45)
[2016-11-13 08:21] LABS: ALLENS TEST POSITIVE; ART PUNCT SITE RIGHT RADIAL; LPM/O2% 40; PT. ON O2? YES
[2016-11-13 08:22] LABS: MECH. VENT. YES; TYPE OF O2 MECCH VENT; VENT RATE 12; VT/PRESS 450
[2016-11-13 09:11] LABS: ALBUMIN 2.2 g/dl (3.4-5.0); BILIRUBIN,TOTAL 0.9 mg/dL (0.2-1.0); CALCIUM 7.4 mg/dL (8.5-10.1); CREATININE 2.3 mg/dL (0.7-1.3); MAGNESIUM 1.9 mg/dL (1.8-2.4); PHOSPHOROUS 3.5 mg/dL (2.5-4.9); TOT PROT 4.7 g/dl (6.4-8.2)
--- NOTE | 2016-11-13 09:57 | PN ---
Progress Note, Physician History of Present Illness: Pt remains on Levophed at 10 mcg/min and on ventilator with FiO2 of 40%. Noted to have a decreasing Hgb so will need to transfuse. He has no urine output Congestion and effusions on CXR Temperature higher at 97.8 on Kendell Hugger 1 BC is positive- Type of growth is pending PMH of CVA with PEG, multiple decubiti, DM, COPD, CKD on HD via right femoral NANCY, hypothyroidism GERD, hypotension on Midodrine prior to admission ,s/p tracheostomy, s/p gastrostomy - Current Medication List Current Medications: Active Medications Hydrocortisone Sodium Succinate (Solu-Cortef -) 100 mg IVPB Q8H-IV STEVEN Last Admin: 11/13/16 01:31 Dose: 100 mg Norepinephrine Bitartrate 4, (000 mcg/ Dextrose) 500 mls @ 37.5 mls/hr IV TITR STEVEN; 5 MCG/MIN PRN Reason: Protocol Last Admin: 11/13/16 00:30 Dose: 75 mls/hr Pantoprazole Sodium 80 mg/ (Sodium Chloride) 100 mls @ 10 mls/hr IVPB Q10H STEVEN PRN Reason: 8 MG/HR Last Admin: 11/13/16 04:00 Dose: 10 mls/hr Clindamycin Phosphate (Cleocin 600 Mg Premix Ivpb -) 50 mls @ 100 mls/hr IVPB Q6H-IV STEVEN Last Admin: 11/13/16 03:00 Dose: 100 mls/hr Piperacillin Sod/Tazobactam Sod (Zosyn 2.25gm Ivpb (Pre-Docked)) 50 mls @ 100 mls/hr IVPB Q8H-IV STEVEN PRN Reason: Protocol Last Admin: 11/13/16 01:31 Dose: 100 mls/hr - Objective Vital Signs: Vital Signs Temperature 97 F L 11/13/16 06:00 Pulse Rate 51 L 11/13/16 06:00 Respiratory Rate 12 11/13/16 06:55 Blood Pressure 98/46 11/13/16 06:00 O2 Sat by Pulse Oximetry (%) 100 11/12/16 22:00 Constitutional: Yes: No Distress Neck: Yes: Other (Tracheostomy) Cardiovascular: Yes: S1, S2 Respiratory: Yes: Diminished (Decreased BS at bases) Gastrointestinal: Yes: Soft (GT) Extremities: Yes: Other (Necrotic ulcers of the feet and edema of the feet Left IO line and peripheral line in the LUE) Labs: CBC, BMP 11/13/16 05:25 11/13/16 05:25 INR, PTT INR 1.69 (0.82-1.09) H 11/12/16 08:10 Assessment/Plan Impression Hypotension and respiratory failure on pressor and ventilator respectively with sepsis ( + BC) and worsening edema CKD with multiorgan failure and Anuria Sepsis in pt with multiple decubiti Respiratory failure Anemia with recent GIB S/P CVA with contractures DM Hypothyroidism Plan Transfuse PRBCs with HD UA Renal and U Bladder US Empiric Abx Taper off pressor as tolerated Stress doses of pressor Dr Hylton
--- NOTE | 2016-11-13 10:04 | PN ---
Progress Note, Physician History of Present Illness: seen and examined today. no events overnight. remains minimally responsive. - Current Medication List Current Medications: Active Medications Hydrocortisone Sodium Succinate (Solu-Cortef -) 100 mg IVPB Q8H-IV STEVEN Last Admin: 11/13/16 01:31 Dose: 100 mg Norepinephrine Bitartrate 4, (000 mcg/ Dextrose) 500 mls @ 37.5 mls/hr IV TITR STEVEN; 5 MCG/MIN PRN Reason: Protocol Last Admin: 11/13/16 00:30 Dose: 75 mls/hr Pantoprazole Sodium 80 mg/ (Sodium Chloride) 100 mls @ 10 mls/hr IVPB Q10H STEVEN PRN Reason: 8 MG/HR Last Admin: 11/13/16 04:00 Dose: 10 mls/hr Clindamycin Phosphate (Cleocin 600 Mg Premix Ivpb -) 50 mls @ 100 mls/hr IVPB Q6H-IV STEVEN Last Admin: 11/13/16 03:00 Dose: 100 mls/hr Piperacillin Sod/Tazobactam Sod (Zosyn 2.25gm Ivpb (Pre-Docked)) 50 mls @ 100 mls/hr IVPB Q8H-IV STEVEN PRN Reason: Protocol Last Admin: 11/13/16 01:31 Dose: 100 mls/hr - Objective Vital Signs: Vital Signs Temperature 97 F L 11/13/16 06:00 Pulse Rate 51 L 11/13/16 06:00 Respiratory Rate 12 11/13/16 06:55 Blood Pressure 98/46 11/13/16 06:00 O2 Sat by Pulse Oximetry (%) 100 11/12/16 22:00 Constitutional: Yes: No Distress Neck: Yes: Other (tracheostomy) Cardiovascular: Yes: Bradycardia, Pulse Irregular, S1, S2. No: Tachycardia, Bruit, JVD, Gallop, Murmur, Rub, S3, S4, Varicosities Respiratory: Yes: Regular, Diminished, Mechanically Ventilated, Other (trach). No: Rales, Rhonchi, Wheezes Gastrointestinal: Yes: Normal Bowel Sounds Extremities: Yes: Other (ulcers) Edema: No Neurological: No: Alert, Oriented Psychiatric: No: Alert, Oriented Labs: CBC, BMP 11/13/16 05:25 11/13/16 05:25 INR, PTT INR 1.69 (0.82-1.09) H 11/12/16 08:10 - ....Imaging Chest X-ray: Report Reviewed, Image Reviewed EKG: Report Reviewed, Image Reviewed Other: Report Reviewed, Image Reviewed (tele-nsr, sinus bradycardia 40-70s, possible episodes of junctional escape with aberrancy) Assessment/Plan 76 year old man with a history of hypotension on midodrine, hld, DMII, COPD, ESRD on HD, CVA 2009, tracheostomy with vent dependence, recent long hospital stay at [facility] with septic shock, anoxic encephalopathy, sent to [place], now admitted with possible UGIB and septic shock. Pt noted to have sinus bradycardia on tele during admission with HR as low as 39bpm. Bradycardia-sinus HR ranging 40s-70s, no sign of high degree heart block -likely related to sepsis and septic shock -HR trend has improved -no current indication for pacemaker -do not need to chemically increase HR currently, ok to cont Levophed as vasopressor, if needed for additional pressor support can use dopamine -f/up TFT's -avoid any AV eda blocking medications -cont tele monitoring in the ICU -would be helpful to obtain records from [facility] as to any cardiac work up that was done
[2016-11-13 10:12] LABS: THYROID STIMULATING HORMONE 4.4 uIU/ml (0.358-3.74)
--- NOTE | 2016-11-13 10:43 | PN ---
Progress Note (short form) - Note Progress Note: PULMONARY/CCM Pt seen and examined in the ICU. Remains on levophed gtt. Bradycardic. Vented on volume assist control with 40% fiO2. Growing gram positive cocci in blood culture. Last Vital Signs Temp Pulse Resp BP Pulse Ox 97 F L 51 L 12 98/46 100 11/13/16 06:00 11/13/16 06:00 11/13/16 06:55 11/13/16 06:00 11/12/16 22:00 Intake & Output 11/10/16 11/11/16 11/12/16 11/13/16 23:59 23:59 23:59 23:59 Intake Total 1423 514 Output Total 1200 0 Balance 223 514 Weight 168 lb 6.4 oz 169 lb 12.8 oz Gen: vented, poorly responsive Heart: RRR Lung: scattered rhonchi Abd: soft, nontender Ext: multiple ulcers CBC, BMP 11/13/16 05:25 11/13/16 05:25 Active Medications Hydrocortisone Sodium Succinate (Solu-Cortef -) 100 mg IVPB Q8H-IV STEVEN Last Admin: 11/13/16 10:14 Dose: 100 mg Norepinephrine Bitartrate 4, (000 mcg/ Dextrose) 500 mls @ 37.5 mls/hr IV TITR STEVEN; 5 MCG/MIN PRN Reason: Protocol Last Admin: 11/13/16 00:30 Dose: 75 mls/hr Pantoprazole Sodium 80 mg/ (Sodium Chloride) 100 mls @ 10 mls/hr IVPB Q10H STEVEN PRN Reason: 8 MG/HR Last Admin: 11/13/16 04:00 Dose: 10 mls/hr Clindamycin Phosphate (Cleocin 600 Mg Premix Ivpb -) 50 mls @ 100 mls/hr IVPB Q6H-IV STEVEN Last Admin: 11/13/16 10:14 Dose: 100 mls/hr Piperacillin Sod/Tazobactam Sod (Zosyn 2.25gm Ivpb (Pre-Docked)) 50 mls @ 100 mls/hr IVPB Q8H-IV STEVEN PRN Reason: Protocol Last Admin: 11/13/16 10:14 Dose: 100 mls/hr A/P Sacral Decubitus Ulcer Infection Gram Positive Bacteremia Septic Shock Lactic Acidosis ESRD on HD Chronic Hypotension h/o CVA Anoxic Encephalopathy Anemia - continue antibiotics - f/u cultures - surgery eval of ulcers - midodrine - taper levophed gtt to maintain MAP >50 - HD per renal - transfuse PRBC - poor prognosis for any meaningful recovery, approaching medical futility, will get palliative care evaluation - DVT/GI prophylaxis
--- NOTE | 2016-11-13 11:24 | EKG ---
Test Reason : Blood Pressure : / mmHG Vent. Rate : 077 BPM Atrial Rate : 077 BPM P-R Int : 204 ms QRS Dur : 068 ms QT Int : 354 ms P-R-T Axes : 032 001 114 degrees QTc Int : 400 ms NORMAL SINUS RHYTHM LOW VOLTAGE QRS CANNOT RULE OUT ANTEROSEPTAL INFARCT , AGE UNDETERMINED ABNORMAL ECG NO PREVIOUS ECGS AVAILABLE Confirmed by ASAD HUMPHREY MD ([id number]) on 11/13/2016 11:23:57 AM Referred By: Confirmed By:ASAD HUMPHREY MD
[2016-11-13] MEDS ORDERED: NOREPINEPHRINE BITARTRATE 4 MG/4 ML ML IV ONE (11:40)
--- NOTE | 2016-11-13 15:27 | PN ---
GI Progress Note Subjective: Patient seen i in ICU. Remains unresponsive, on vent, levophed 5. - Objective Vital Signs: Vital Signs Temperature 97.9 F 11/13/16 10:00 Pulse Rate 57 L 11/13/16 12:00 Respiratory Rate 12 11/13/16 14:00 Blood Pressure 97/48 11/13/16 12:00 O2 Sat by Pulse Oximetry (%) 100 11/12/16 22:00 Constitutional: Pallor HENT: Yes: Normocephalic Cardiovascular: Yes: Regular Rate and Rhythm Respiratory: Yes: CTA Bilaterally, Mechanically Ventilated (FiO2-40%) Gastrointestinal Inspection: Yes: Distention (mildly distended) ...Auscultate: Yes: No Bowel Sounds ...Percussion: Yes: Tympanitic Labs: CBC, BMP 11/13/16 05:25 11/13/16 05:25 INR, PTT INR 1.69 (0.82-1.09) H 11/12/16 08:10 Hepatic Panel Total Bilirubin 0.9 mg/dL (0.2-1.0) 11/13/16 05:25 AST 52 U/L (15-37) H D 11/13/16 05:25 ALT 39 U/L (12-78) D 11/13/16 05:25 Alkaline Phosphatase 183 U/L (45-117) H 11/13/16 05:25 Albumin 2.2 g/dl (3.4-5.0) L 11/13/16 05:25 Abnormal Lab Results 11/12/16 11/13/16 11/13/16 01:41 05:25 05:25 RBC 1.94 L Hgb 6.2 L* D Hct 18.6 L MCV 96.1 H RDW 23.4 H Plt Count 41 L Neutrophils % 94.6 H Lymphocytes % 3.7 L D Monocytes % 1.5 L ABG pH ABG pCO2 at Pt Temp ABG pO2 at Pt Temp ABG O2 Sat (Measured) ABG O2 Content ABG Base Excess BUN 73 H Creatinine 2.3 H Random Glucose 218 H Calcium 7.4 L AST 52 H D Alkaline Phosphatase 183 H Total Protein 4.7 L Albumin 2.2 L TSH 4.40 H Crossmatch See Detail 11/13/16 07:50 RBC Hgb Hct MCV RDW Plt Count Neutrophils % Lymphocytes % Monocytes % ABG pH 7.55 H ABG pCO2 at Pt Temp 28.0 L ABG pO2 at Pt Temp 152.0 H* ABG O2 Sat (Measured) 99.9 H* ABG O2 Content 10.6 L ABG Base Excess 2.2 H BUN Creatinine Random Glucose Calcium AST Alkaline Phosphatase Total Protein Albumin TSH Crossmatch Assessment/Plan G tube site again evaluated. Dark material still noted in PEG tube. No induration noted and no pus around the GT site. There is no erythema. Ongoing UGI bleeding, likely etiology newly placed PEG in patient with coagulopathy. Patient needs central line access He needs to be transfused blood, 2 units at this time He has 2 units FFP ordered for today Platelet count 41 Will need 2 units platelets He is on IV AB Protonix drip Follow CBC closely-Hgb has dropped and he needs another 2 units of prbc Poor candidate for procedures at this time. Poor prognosis. Spoke with son Matthew and explained the seriousness of the situation
--- NOTE | 2016-11-13 16:46 | PN ---
Progress Note (short form) - Note Progress Note: Patient is lying in bed , nonverbal. No family at bedside. Vital Signs Temperature 97.2 F L 11/13/16 16:00 Pulse Rate 47 L 11/13/16 16:00 Respiratory Rate 12 11/13/16 14:00 Blood Pressure 108/68 11/13/16 16:00 O2 Sat by Pulse Oximetry (%) 100 11/12/16 22:00 GENERAL: The patient is nonverbal, lying in bed , contracted. HEAD: Normal with no signs of trauma. EYES: PERRL, eys closed , sclera anicteric, conjunctiva clear. ENT: moist oral mucosa , nares patent NECK: positive for trach. LUNGS: decreased Breath sounds BL, no accessory muscle use. On vent.on tracheostomy (40% Fi02) HEART: Regular rate and rhythm, S1, S2 positive . ABDOMEN: Soft, nontender, positive for G-tube, Positive for mild distention EXTREMITIES: 2+ pulses, warm, well-perfused, no edema. LLE IO access MUSCULOSKELETAL: Contracted, arms contracted LE contracted, jaw clenched. Anasarca NEUROLOGICAL: Cranial nerves II through XII grossly intact. gag reflex present, responds to painful stimuli. PSYCH: Unable to access SKIN: Warm, dry,multiple pressure ulcers (on feet, calves, forehead, back, gluteal region) with Decubitus Ulcer unstageable CBCD WBC 6.9 K/mm3 (4.0-10.0) 11/13/16 05:25 RBC 1.94 M/mm3 (4.00-5.60) L 11/13/16 05:25 Hgb 6.2 GM/dL (11.7-16.9) L* D 11/13/16 05:25 Hct 18.6 % (35.4-49) L 11/13/16 05:25 MCV 96.1 fl (80-96) H 11/13/16 05:25 MCHC 33.2 g/dl (32.0-35.9) 11/13/16 05:25 RDW 23.4 % (11.9-15.9) H 11/13/16 05:25 Plt Count 41 K/MM3 (134-434) L 11/13/16 05:25 MPV 10.4 fl (7.5-11.1) 11/13/16 05:25 CMP Sodium 142 mmol/L (136-145) 11/13/16 05:25 Potassium 3.9 mmol/L (3.5-5.1) 11/13/16 05:25 Chloride 105 mmol/L (98-107) 11/13/16 05:25 Carbon Dioxide 24 mmol/L (21-32) 11/13/16 05:25 Anion Gap 13 (8-16) 11/13/16 05:25 BUN 73 mg/dL (7-18) H 11/13/16 05:25 Creatinine 2.3 mg/dL (0.7-1.3) H 11/13/16 05:25 Creat Clearance w eGFR 27.71 (>60) 11/13/16 05:25 Random Glucose 218 mg/dL (74-106) H 11/13/16 05:25 Calcium 7.4 mg/dL (8.5-10.1) L 11/13/16 05:25 Total Bilirubin 0.9 mg/dL (0.2-1.0) 11/13/16 05:25 AST 52 U/L (15-37) H D 11/13/16 05:25 ALT 39 U/L (12-78) D 11/13/16 05:25 Alkaline Phosphatase 183 U/L (45-117) H 11/13/16 05:25 Total Protein 4.7 g/dl (6.4-8.2) L 11/13/16 05:25 Albumin 2.2 g/dl (3.4-5.0) L 11/13/16 05:25 CARDIAC ENZYMES Creatine Kinase 28 IU/L (39-308) L 11/12/16 01:41 Troponin I 0.08 ng/ml (0.00-0.05) H D 11/12/16 08:10 Current Medications Generic Name Dose Route Start Last Admin Trade Name Freq PRN Reason Stop Dose Admin Hydrocortisone Sodium Succinate 100 mg 11/12/16 13:00 11/13/16 10:14 Solu-Cortef - IVPB 100 mg Q8H-IV STEVEN Administration Norepinephrine Bitartrate 4, 500 mls @ 37.5 mls/hr 11/12/16 02:30 11/13/16 00: 30 000 mcg/ Dextrose IV 75 mls/hr TITR STEVEN Administration Protocol 5 MCG/MIN Pantoprazole Sodium 80 mg/ 100 mls @ 10 mls/hr 11/12/16 06:30 11/13/16 04:00 Sodium Chloride IVPB 10 mls/hr Q10H STEVEN Administration 8 MG/HR Clindamycin Phosphate 50 mls @ 100 mls/hr 11/12/16 15:00 11/13/16 16:39 Cleocin 600 Mg Premix Ivpb - IVPB 100 mls/hr Q6H-IV STEVEN Administration Piperacillin Sod/Tazobactam Sod 50 mls @ 100 mls/hr 11/12/16 14:00 11/13/16 10: 14 Zosyn 2.25gm Ivpb (Pre-Docked) IVPB 100 mls/hr Q8H-IV STEVEN Administration Protocol Home Medications Medication Instructions Recorded Atorvastatin Ca [Lipitor] 80 mg PO HS 11/12/16 Esomeprazole Magnesium 40 mg PO DAILY 11/12/16 Ferrous Sulfate 325 mg PO DAILY 11/12/16 Hydrocortisone 20 mg PO DAILY 11/12/16 Levothyroxine [Synthroid -] 50 mcg PO DAILY 11/12/16 Magnesium Hydroxide [Milk of 400 mg PO DAILY 11/12/16 Magnesia] Midodrine HCl 5 mg PO DAILY 11/12/16 Sevelamer Carbonate [Renvela] 800 mg PO DAILY 11/12/16 Vitamin B Comp W-C [Nephro-Daily -] 1 tablet PO DAILY 11/12/16 Microbiology 11/12/16 08:10 Blood - Peripheral Venous Blood Culture - Preliminary Pending Organism 11/12/16 08:10 Blood - Peripheral Venous Blood Culture - Preliminary NO GROWTH OBTAINED AFTER 24 HOURS, INCUBATION TO CONTINUE FOR 4 DAYS. A/P: Patient is a 76 y/o M w/PMHx of hypotension, HLD, hypothyroidism, DM, COPD, ESRD , GERD, s/p tracheostomy, s/p gastrostomy presented to ER from [facility] for coffee ground emesis. Pt is contracted, was found to be hypotensive, hypothermic, w/anasarca requiring pressors. # Septic shock on levophed ; goal MAP > 65; vanco x 1 dose given in ER and cefepime in ER , as per ID to continue with Clindamycin and Zosyn . #Anemia secondary to Upper GI bleed ;IV protonix drip continue, hemoglobin 7.1- ->6.2 , patient is getting transfused . GI Dr. Nicolas is on the case. # Anasarca secondary to renal failure vs malnutrition/protein malnutrition s/p albumin given in Ed. # ESRD on HD Nephro consult for further management # Acute Transaminitis due to septic shock, continue monitoring LFTs # Decubitus Ulcer unstageable with possible Osteomyelitis Poor Prognosis with multi organ failure, will get Palliative care involved. Code status: son - Matthew Jimenez . will discuss with his mother ( the of the patient) regarding DNR status DVT: Anticoagulation is contraindicated since having GI bleed, SCDs contraindicated with multiple pressure ulcers Visit type - Emergency Visit Emergency Visit: Yes ED Registration Date: 11/12/16 Care time: The patient presented to the Emergency Department on the above date and was hospitalized for further evaluation of their emergent condition. - New Patient This patient is new to me today: No - Critical Care Critical Care patient: No
--- NOTE | 2016-11-13 17:55 | PN ---
Progress Note, Physician History of Present Illness: patient doing slightly better still on pressors but decreasing opening his eyes otherwise no gross changes still hypothermic - Current Medication List Current Medications: Active Medications Hydrocortisone Sodium Succinate (Solu-Cortef -) 100 mg IVPB Q8H-IV STEVEN Last Admin: 11/13/16 17:33 Dose: 100 mg Norepinephrine Bitartrate 4, (000 mcg/ Dextrose) 500 mls @ 37.5 mls/hr IV TITR STEVEN; 5 MCG/MIN PRN Reason: Protocol Last Admin: 11/13/16 00:30 Dose: 75 mls/hr Pantoprazole Sodium 80 mg/ (Sodium Chloride) 100 mls @ 10 mls/hr IVPB Q10H STEVEN PRN Reason: 8 MG/HR Last Admin: 11/13/16 17:31 Dose: 10 mls/hr Clindamycin Phosphate (Cleocin 600 Mg Premix Ivpb -) 50 mls @ 100 mls/hr IVPB Q6H-IV STEVEN Last Admin: 11/13/16 16:39 Dose: 100 mls/hr Piperacillin Sod/Tazobactam Sod (Zosyn 2.25gm Ivpb (Pre-Docked)) 50 mls @ 100 mls/hr IVPB Q8H-IV STEVEN PRN Reason: Protocol Last Admin: 11/13/16 17:35 Dose: 100 mls/hr - Objective Vital Signs: Vital Signs Temperature 97.2 F L 11/13/16 16:00 Pulse Rate 47 L 11/13/16 16:00 Respiratory Rate 12 11/13/16 14:00 Blood Pressure 108/68 11/13/16 16:00 O2 Sat by Pulse Oximetry (%) 100 11/12/16 22:00 Constitutional: Yes: Calm, Mild Distress Cardiovascular: Yes: Regular Rate and Rhythm Respiratory: Yes: Mechanically Ventilated, Other (trach) Gastrointestinal: Yes: Normal Bowel Sounds, Soft, Other (peg in place) Musculoskeletal: Yes: Other Extremities: Yes: Other Integumentary: Yes: Other (multiple pressure ulcers all over the body) Wound/Incision: Yes: Other (decubitus ulcer) Neurological: Yes: Other Psychiatric: Yes: Other Labs: CBC, BMP 11/13/16 05:25 11/13/16 05:25 INR, PTT INR 1.69 (0.82-1.09) H 11/12/16 08:10 Assessment/Plan patient with hypotension and hypothermia now in icu multiple medical problems decubitus ulcer multiple pressure ulcer infected peg tube site septic shock lactic acidosis hypotension hypthermia esrd cva gram positive bacteremia plan continue current mgmt will change to vanco continue wound care as per nephro blood transfuion platelet transfusion cc time 40 time
[2016-11-13] MEDS: NOREPINEPHRINE BITARTRATE 8,000 MCG in DEXTROSE 5%-WATER - 492 ML IV SCH (18:37)
[2016-11-14] MEDS: HYDROCORTISONE SOD SUCCINATE 100 MG/2 ML VIAL IVPB SCH ×3 (02:15→18:15)
[2016-11-14] MEDS: PIPERACILLIN/TAZOB 2.25 GM 50 ML IVPB SCH ×3 (02:15→18:15)
[2016-11-14] MEDS ORDERED: VANCOMYCIN 1 GRAM (PRE-DOCKED) 250 ML IVPB SCH (05:00)
[2016-11-14] MEDS: PANTOPRAZOLE SODIUM 80 MG in SODIUM CHLORIDE 100 ML IVPB SCH ×3 (05:29→10:06)
[2016-11-14 05:56] LABS: MCH 31.3 pg (25.7-33.7); MCHC 35.4 g/dl (32.0-35.9); MEAN CELL VOLUME 88.4 fl (80-96); MEAN PLT VOLUME 8.2 fl (7.5-11.1); PLATELET COUNT 100 K/MM3 (134-434); RDW 20.1 % (11.9-15.9); WHITE BLOOD COUNT 5.3 K/mm3 (4.0-10.0)
[2016-11-14 06:20] LABS: CALCIUM 7.7 mg/dL (8.5-10.1)
[2016-11-14 06:26] LABS: ALBUMIN 2.4 g/dl (3.4-5.0); CREATININE 2.6 mg/dL (0.7-1.3); MAGNESIUM 1.9 mg/dL (1.8-2.4); PHOSPHOROUS 4.4 mg/dL (2.5-4.9); TOT PROT 5.3 g/dl (6.4-8.2)
--- NOTE | 2016-11-14 11:00 | PN ---
Physical Exam: SUBJECTIVE: Patient seen and examined Patient resting in bed, unresponsive. No acute events. afebrile hemodynamically stable. Mechanically ventilated. No further hematemesis. anuric. still on levophed @3. No HD yet. OBJECTIVE: Vital Signs Period Temp Pulse Resp BP Sys/Vang Pulse Ox Last 24 Hr 96 F-98.1 F 45-72 12-16 94-136/48-69 96-98 GENERAL: unresponsive HEAD: Normal with no signs of trauma. EYES: sclera anicteric, conjunctiva clear. ENT: moist mucous membranes. NECK: supple. LUNGS: diffuse ronchi, trach, vent. HEART: Regular rate and rhythm, S1, S2 ABDOMEN: Soft, nondistended, globally reduced bowel sounds EXTREMITIES: 1+ pulses, warm, 1+ edema. NEUROLOGICAL: symmetrical face PSYCH: Normal mood, normal affect. SKIN: Warm, dry Laboratory Results - last 24 hr 11/14/16 11/14/16 05:00 05:00 WBC 5.3 RBC 2.55 L D Hgb 8.0 L D Hct 22.5 L D MCV 88.4 MCHC 35.4 RDW 20.1 H D Plt Count 100 L D MPV 8.2 D Sodium 141 Potassium 4.1 Chloride 102 Carbon Dioxide 26 Anion Gap 13 BUN 75 H Creatinine 2.6 H Creat Clearance w eGFR 24.05 Random Glucose 235 H Calcium 7.7 L Phosphorus 4.4 D Magnesium 1.9 Total Bilirubin 1.0 AST 36 D ALT 29 D Alkaline Phosphatase 198 H Total Protein 5.3 L Albumin 2.4 L Active Medications Generic Name Dose Route Start Last Admin Trade Name Freq PRN Reason Stop Dose Admin Hydrocortisone Sodium Succinate 100 mg 11/12/16 13:00 11/14/16 10:05 Solu-Cortef - IVPB 100 mg Q8H-IV STEVEN Administration Pantoprazole Sodium 80 mg/ 100 mls @ 10 mls/hr 11/12/16 06:30 11/14/16 10:06 Sodium Chloride IVPB Not Given Q10H STEVEN 8 MG/HR Piperacillin Sod/Tazobactam Sod 50 mls @ 100 mls/hr 11/12/16 14:00 11/14/16 10: 05 Zosyn 2.25gm Ivpb (Pre-Docked) IVPB 100 mls/hr Q8H-IV STEVEN Administration Protocol Vancomycin HCl 250 mls @ 166.667 mls/hr 11/14/16 05:00 11/14/16 05:29 Vancomycin (Pre-Docked) IVPB 166.667 mls/hr Q2D@0500 STEVEN Administration Protocol Norepinephrine Bitartrate 8, 500 mls @ 18.75 mls/hr 11/13/16 18:30 11/14/16 10: 04 000 mcg/ Dextrose IV 3 mcg/min TITR STEVEN Titration Protocol 5 MCG/MIN ASSESSMENT/PLAN: Septic shock -likley source sacral decubitus ulcer -unstageable ulcer, vascular consult for possible debridement -Gram Positive Bacteremia in 1/2 bottles, likely staph -Lactic Acidosis -continue vanco and zosyn -strict I and O ESRD on HD -holding HD while on pressors -anuric Chronic Hypotension -wean off levophed (@3) Acute on chronic Anemia -aggravated by GIB -coffee ground emesis resolved -s/p 2 u pRBC, FFP, platelets -hgb stable at 8 -monitor h/h -switch to IV PPI BID Anoxic Encephalopathy -unresponsive -unlikely to improve -grave prognosis -palliative care consult FEN no IVF lytes stable NPO Dispo: ICU Visit type - Emergency Visit Emergency Visit: Yes ED Registration Date: 11/12/16 Care time: The patient presented to the Emergency Department on the above date and was hospitalized for further evaluation of their emergent condition. - New Patient This patient is new to me today: Yes Date on this admission: 11/14/16 - Critical Care Critical Care patient: Yes Total Critical Care Time (in minutes): 35 Critical Care Statement: The care of this patient involved high complexity decision making to prevent further life threatening deterioration of the patient 's condition and/or to evalute & treat vital organ system(s) failure or risk of failure. - Discharge Referral Referred to [facility] No
--- NOTE | 2016-11-14 11:36 | PN ---
Progress Note, Physician History of Present Illness: seen and examined today in nad. minimally responsive. no overnight events. - Current Medication List Current Medications: Active Medications Hydrocortisone Sodium Succinate (Solu-Cortef -) 100 mg IVPB Q8H-IV STEVEN Last Admin: 11/14/16 10:05 Dose: 100 mg Pantoprazole Sodium 80 mg/ (Sodium Chloride) 100 mls @ 10 mls/hr IVPB Q10H STEVEN PRN Reason: 8 MG/HR Last Admin: 11/14/16 10:06 Dose: Not Given Piperacillin Sod/Tazobactam Sod (Zosyn 2.25gm Ivpb (Pre-Docked)) 50 mls @ 100 mls/hr IVPB Q8H-IV STEVEN PRN Reason: Protocol Last Admin: 11/14/16 10:05 Dose: 100 mls/hr Vancomycin HCl (Vancomycin (Pre-Docked)) 250 mls @ 166.667 mls/hr IVPB Q2D@ 0500 STEVEN PRN Reason: Protocol Last Admin: 11/14/16 05:29 Dose: 166.667 mls/hr Norepinephrine Bitartrate 8, (000 mcg/ Dextrose) 500 mls @ 18.75 mls/hr IV TITR STEVEN; 5 MCG/MIN PRN Reason: Protocol Last Titration: 11/14/16 11:13 Dose: 2 mcg/min - Objective Vital Signs: Vital Signs Temperature 98.6 F 11/14/16 11:00 Pulse Rate 60 11/14/16 11:13 Respiratory Rate 12 11/14/16 11:03 Blood Pressure 117/58 11/14/16 11:13 O2 Sat by Pulse Oximetry (%) 96 11/14/16 10:18 Constitutional: Yes: No Distress, Calm HENT: Yes: Atraumatic, Normocephalic Neck: Yes: Other (tracheostomy) Cardiovascular: Yes: Regular Rate and Rhythm, S1, S2. No: Bradycardia, Tachycardia, Pulse Irregular, Bruit, JVD, Gallop, Murmur, Rub, S3, S4, Varicosities Respiratory: Yes: Regular, Mechanically Ventilated. No: Rales, Rhonchi, Wheezes Gastrointestinal: Yes: Normal Bowel Sounds, Soft. No: Distention, Tenderness Edema: No Neurological: Yes: Unresponsive. No: Alert, Oriented Psychiatric: No: Alert, Oriented Labs: CBC, BMP 11/14/16 05:00 11/14/16 05:00 INR, PTT INR 1.69 (0.82-1.09) H 11/12/16 08:10 - ....Imaging Chest X-ray: Report Reviewed, Image Reviewed EKG: Report Reviewed, Image Reviewed Other: Report Reviewed, Image Reviewed (tele-NSR, Sinus zaid 50-60s) Assessment/Plan 76 year old man with a history of hypotension on midodrine, hld, DMII, COPD, ESRD on HD, CVA 2009, tracheostomy with vent dependence, recent long hospital stay at [facility] with septic shock, anoxic encephalopathy, sent to [place], now admitted with possible UGIB and septic shock. Pt noted to have sinus bradycardia on tele during admission with HR as low as 39bpm. Bradycardia-sinus HR ranging 50s-70s, no sign of high degree heart block -likely related to sepsis and septic shock -HR trend improving -no current indication for pacemaker -TSH slightly elevated, unclear if clinically relevant -avoid any AV eda blocking medications -cont tele monitoring in the ICU -would be helpful to obtain records from [facility] as to any cardiac work up that was done
--- NOTE | 2016-11-14 12:32 | PN ---
Teaching Attending Note Name of Resident: Cl Torre ATTENDING PHYSICIAN STATEMENT I saw and evaluated the patient. I reviewed the resident's note and discussed the case with the resident. I agree with the resident's findings and plan as documented. SUBJECTIVE: Pt seen and examined in the ICU. Vented on volume assist control. Remains on levophed gtt. OBJECTIVE: Last Vital Signs Temp Pulse Resp BP Pulse Ox 98.6 F 64 12 109/60 100 11/14/16 11:00 11/14/16 12:15 11/14/16 12:14 11/14/16 12:15 11/14/16 12:16 Intake & Output 11/11/16 11/12/16 11/13/16 11/14/16 23:59 23:59 23:59 23:59 Intake Total 1423 2429.2 1071 Output Total 1200 50 0 Balance 223 2379.2 1071 Weight 168 lb 6.4 oz 169 lb 12.8 oz 174 lb 11.2 oz Gen: vented, poorly responsive Heart: RRR Lung: scattered rhonchi Abd: soft, nontender Ext: + edema, multiple ulcers CBC, BMP 11/14/16 05:00 11/14/16 05:00 Active Medications Hydrocortisone Sodium Succinate (Solu-Cortef -) 100 mg IVPB Q8H-IV STEVEN Last Admin: 11/14/16 10:05 Dose: 100 mg Pantoprazole Sodium 80 mg/ (Sodium Chloride) 100 mls @ 10 mls/hr IVPB Q10H STEVEN PRN Reason: 8 MG/HR Last Admin: 11/14/16 10:06 Dose: Not Given Piperacillin Sod/Tazobactam Sod (Zosyn 2.25gm Ivpb (Pre-Docked)) 50 mls @ 100 mls/hr IVPB Q8H-IV STEVEN PRN Reason: Protocol Last Admin: 11/14/16 10:05 Dose: 100 mls/hr Vancomycin HCl (Vancomycin (Pre-Docked)) 250 mls @ 166.667 mls/hr IVPB Q2D@ 0500 STEVEN PRN Reason: Protocol Last Admin: 11/14/16 05:29 Dose: 166.667 mls/hr Norepinephrine Bitartrate 8, (000 mcg/ Dextrose) 500 mls @ 18.75 mls/hr IV TITR STEVEN; 5 MCG/MIN PRN Reason: Protocol Last Titration: 11/14/16 12:15 Dose: 0 mcg/min ASSESSMENT AND PLAN: Sacral Decubitus Ulcer Infection Gram Positive Bacteremia Septic Shock Lactic Acidosis ESRD on HD Chronic Hypotension h/o CVA Anoxic Encephalopathy Anemia - continue antibiotics - f/u cultures - surgery eval of ulcers - midodrine - taper levophed gtt to maintain MAP >50 - HD per renal - monitor H/H - establish peripheral access - poor prognosis for any meaningful recovery, approaching medical futility, will get palliative care evaluation - DVT/GI prophylaxis
--- NOTE | 2016-11-14 13:41 | PN ---
Progress Note, Physician History of Present Illness: Pt seen and examined at bedside. He is in the ICU. He is now off of pressor agents. - Current Medication List Current Medications: Active Medications Hydrocortisone Sodium Succinate (Solu-Cortef -) 100 mg IVPB Q8H-IV STEVEN Last Admin: 11/14/16 10:05 Dose: 100 mg Pantoprazole Sodium 80 mg/ (Sodium Chloride) 100 mls @ 10 mls/hr IVPB Q10H STEVEN PRN Reason: 8 MG/HR Last Admin: 11/14/16 10:06 Dose: Not Given Piperacillin Sod/Tazobactam Sod (Zosyn 2.25gm Ivpb (Pre-Docked)) 50 mls @ 100 mls/hr IVPB Q8H-IV STEVEN PRN Reason: Protocol Last Admin: 11/14/16 10:05 Dose: 100 mls/hr Vancomycin HCl (Vancomycin (Pre-Docked)) 250 mls @ 166.667 mls/hr IVPB Q2D@ 0500 STEVEN PRN Reason: Protocol Last Admin: 11/14/16 05:29 Dose: 166.667 mls/hr Norepinephrine Bitartrate 8, (000 mcg/ Dextrose) 500 mls @ 18.75 mls/hr IV TITR STEVEN; 5 MCG/MIN PRN Reason: Protocol Last Titration: 11/14/16 12:15 Dose: 0 mcg/min - Objective Vital Signs: Vital Signs Temperature 98.6 F 11/14/16 11:00 Pulse Rate 64 11/14/16 12:15 Respiratory Rate 12 11/14/16 13:30 Blood Pressure 109/60 11/14/16 12:15 O2 Sat by Pulse Oximetry (%) 100 11/14/16 12:16 Constitutional: Yes: Calm Eyes: Yes: Conjunctiva Clear Neck: Yes: Other (trache) Cardiovascular: Yes: S1, S2 Respiratory: Yes: Mechanically Ventilated Gastrointestinal: Yes: Soft Genitourinary: Yes: Anuria, Randolph Present Musculoskeletal: Yes: Muscle Weakness, Other (contracted) Edema: Yes Edema: LUE: 1+, RUE: 1+, LLE: 1+, RLE: 1+ Integumentary: Yes: Pressure Ulcer Neurological: Yes: Pre-Existing Deficit Labs: CBC, BMP 11/14/16 05:00 11/14/16 05:00 INR, PTT INR 1.69 (0.82-1.09) H 11/12/16 08:10 - ....Imaging Ultrasound: Report Reviewed Problem List - Problems (1) GORDON (acute kidney injury) Code(s): N17.9 - ACUTE KIDNEY FAILURE, UNSPECIFIED (2) Anasarca Code(s): R60.1 - GENERALIZED EDEMA (3) Anemia Code(s): D64.9 - ANEMIA, UNSPECIFIED (4) CHF (congestive heart failure) Code(s): I50.9 - HEART FAILURE, UNSPECIFIED (5) CKD (chronic kidney disease) Code(s): N18.9 - CHRONIC KIDNEY DISEASE, UNSPECIFIED (6) Fluid overload Code(s): E87.70 - FLUID OVERLOAD, UNSPECIFIED (7) History of CVA (cerebrovascular accident) Code(s): Z86.73 - PRSNL HX OF TIA (TIA), AND CEREB INFRC W/O RESID DEFICITS Assessment/Plan Current Medications Generic Name Dose Route Start Last Admin Trade Name Freq PRN Reason Stop Dose Admin Albumin Human 12.5 gm 11/14/16 13:45 Albumin Human 25% - IVPB 11/14/16 15:16 Q30M STEVEN Epoetin Rigoberto 4,000 units 11/14/16 14:30 Epogen - IVPUSH 11/14/16 14:31 ONCE ONE Hydrocortisone Sodium Succinate 100 mg 11/12/16 13:00 11/14/16 10:05 Solu-Cortef - IVPB 100 mg Q8H-IV STEVEN Administration Pantoprazole Sodium 80 mg/ 100 mls @ 10 mls/hr 11/12/16 06:30 11/14/16 10:06 Sodium Chloride IVPB Not Given Q10H STEVEN 8 MG/HR Piperacillin Sod/Tazobactam Sod 50 mls @ 100 mls/hr 11/12/16 14:00 11/14/16 10: 05 Zosyn 2.25gm Ivpb (Pre-Docked) IVPB 100 mls/hr Q8H-IV STEVEN Administration Protocol Vancomycin HCl 250 mls @ 166.667 mls/hr 11/14/16 05:00 11/14/16 05:29 Vancomycin (Pre-Docked) IVPB 166.667 mls/hr Q2D@0500 STEVEN Administration Protocol Norepinephrine Bitartrate 8, 500 mls @ 18.75 mls/hr 11/13/16 18:30 11/14/16 12: 15 000 mcg/ Dextrose IV 0 mcg/min TITR STEVEN Titration Protocol 5 MCG/MIN Impression 1. ESRD 2. hypotension 3. chronic respiratory failrue 4. sepsis 5. Anemia 6. GI bleed 7. CVA 8. DM 9. Hypothyroidism Plan - BP is improving and he is off of pressors - will arrange for HD today - discussed with ICU team - cont wound care - epogen for anemia - family meeting to discuss GOC - will follow Dr Mireles
[2016-11-14] MEDS ORDERED: PANTOPRAZOLE SODIUM 100 ML IVPB SCH (14:00)
[2016-11-14] MEDS: ALBUMIN HUMAN 25% 100 ML VIAL IVPB SCH ×4 (14:30→16:00)
[2016-11-14] MEDS ORDERED: EPOETIN ALFA 2,000 UNITS/1 ML VIAL IVPUSH ONE (14:30)
--- NOTE | 2016-11-14 14:57 | PN ---
Physical Exam: SUBJECTIVE: Patient seen and examined, patient lying in bed, non verbal. non responding, on mechanical ventilation. On norepi. Randolph cath in situ no urine present in bag. Family not present. OBJECTIVE: Vital Signs Period Temp Pulse Resp BP Sys/Vang Pulse Ox Last 24 Hr 96 F-98.6 F 45-72 12-16 105-136/51-69 96-100 GENERAL: The patient is nonverbal, contracted, lying in bed HEAD: Normal with no signs of trauma. EYES: right eye operated, left eye 2 mm slugish reacting ENT: moist oral mucosa , nares patent NECK: tracheostomy present, attached to venti. LUNGS: decreased Breath sounds BL, no accessory muscle use. On ventilator HEART: 1s2 normal, regular. ABDOMEN: Soft, nontender, g tube in situ, no blood in g tube, lower EXTREMITIES: swollen multiple ulcers present on b/l lower extremities MUSCULOSKELETAL: Contracted, bed sore on sacrum present. NEUROLOGICAL: gag reflex present, responds to painful stimuli. PSYCH: Unable to access SKIN: Warm, dry,multiple pressure ulcers (on feet, calves, back, gluteal region ) with Decubitus Ulcer unstageable Laboratory Results - last 24 hr 11/14/16 11/14/16 05:00 05:00 WBC 5.3 RBC 2.55 L D Hgb 8.0 L D Hct 22.5 L D MCV 88.4 MCHC 35.4 RDW 20.1 H D Plt Count 100 L D MPV 8.2 D Sodium 141 Potassium 4.1 Chloride 102 Carbon Dioxide 26 Anion Gap 13 BUN 75 H Creatinine 2.6 H Creat Clearance w eGFR 24.05 Random Glucose 235 H Calcium 7.7 L Phosphorus 4.4 D Magnesium 1.9 Total Bilirubin 1.0 AST 36 D ALT 29 D Alkaline Phosphatase 198 H Total Protein 5.3 L Albumin 2.4 L Active Medications Generic Name Dose Route Start Last Admin Trade Name Freq PRN Reason Stop Dose Admin Albumin Human 12.5 gm 11/14/16 14:30 Albumin Human 25% - IVPB 11/14/16 16:01 Q30M STEVEN Hydrocortisone Sodium Succinate 100 mg 11/12/16 13:00 11/14/16 10:05 Solu-Cortef - IVPB 100 mg Q8H-IV STEVEN Administration Piperacillin Sod/Tazobactam Sod 50 mls @ 100 mls/hr 11/12/16 14:00 11/14/16 10: 05 Zosyn 2.25gm Ivpb (Pre-Docked) IVPB 100 mls/hr Q8H-IV STEEVN Administration Protocol Vancomycin HCl 250 mls @ 166.667 mls/hr 11/14/16 05:00 11/14/16 05:29 Vancomycin (Pre-Docked) IVPB 166.667 mls/hr Q2D@0500 STEVEN Administration Protocol Norepinephrine Bitartrate 8, 500 mls @ 18.75 mls/hr 11/13/16 18:30 11/14/16 12: 15 000 mcg/ Dextrose IV 0 mcg/min TITR STEVEN Titration Protocol 5 MCG/MIN Pantoprazole Sodium 100 mls @ 200 mls/hr 11/15/16 10:00 Protonix 40mg Ivpb (Pre-Docked) IVPB DAILY STEVEN Microbiology 11/12/16 07:00 Back Wound Culture - Preliminary Lactose Fermenting Neg Bacilli Non Lactose Fermenting Gnb Non Lactose Fermenting Gnb#2 11/13/16 00:29 Hip - Left Wound Culture - Preliminary Lactose Fermenting Neg Bacilli Non Lactose Fermenting Gnb Non Lactose Fermenting Gnb#2 11/12/16 08:10 Blood - Peripheral Venous Blood Culture - Preliminary Staphylococcus Coagulase Neg 11/12/16 08:10 Blood - Peripheral Venous Blood Culture - Preliminary NO GROWTH OBTAINED AFTER 48 HOURS, INCUBATION TO CONTINUE FOR 3 DAYS. ASSESSMENT/PLAN: Septic Shock with Lactic Acidosis could be from infected ulcers. Sacral Decubitus Ulcer with multiple ulcer on b/ l lower limb Gram Positive Bacteremia continue antibiotic zosyn and vanco follow lactic acid taper levophed. surgery consult f/u culture monitor vitals Regular dressing of sacral ulcer ESRD cr .1--> 2.6 on bed side HD nephro on case avoid nephrotoxic drugs Anemia could be from acute blood loss, coffee ground emesis and lissette could be from ESRD/ anemia of chronic ds monitor haemoglobin, hb 8.0 patient had received 2 units of PC, 2 plt, 2 pp on iv protonix bid Encephalopathy could be anoxic unresponsive poor prognosis for any meaningful recovery -palliative care consult FEN avoid IV fluid elctrolyte ; stabke nutrition NPO DVT pro : on scd, anti coag is contraindicated due o gi bleed Dispo : in icu Visit type - Emergency Visit Emergency Visit: Yes ED Registration Date: 11/12/16 Care time: The patient presented to the Emergency Department on the above date and was hospitalized for further evaluation of their emergent condition. - New Patient This patient is new to me today: Yes Date on this admission: 11/14/16 - Critical Care Critical Care patient: Yes Total Critical Care Time (in minutes): 45 Critical Care Statement: The care of this patient involved high complexity decision making to prevent further life threatening deterioration of the patient 's condition and/or to evalute & treat vital organ system(s) failure or risk of failure.
--- NOTE | 2016-11-14 15:31 | PN ---
Progress Note, Physician History of Present Illness: patient little better today now getting dialysis patients mental status still no change cx result of the wound showing multiple organism multiple rashes on the skin - Current Medication List Current Medications: Active Medications Albumin Human (Albumin Human 25% -) 12.5 gm IVPB Q30M STEVEN Stop: 11/14/16 16:01 Last Admin: 11/14/16 15:00 Dose: 12.5 gm Hydrocortisone Sodium Succinate (Solu-Cortef -) 100 mg IVPB Q8H-IV STEVEN Last Admin: 11/14/16 10:05 Dose: 100 mg Piperacillin Sod/Tazobactam Sod (Zosyn 2.25gm Ivpb (Pre-Docked)) 50 mls @ 100 mls/hr IVPB Q8H-IV STEVEN PRN Reason: Protocol Last Admin: 11/14/16 10:05 Dose: 100 mls/hr Vancomycin HCl (Vancomycin (Pre-Docked)) 250 mls @ 166.667 mls/hr IVPB Q2D@ 0500 STEVEN PRN Reason: Protocol Last Admin: 11/14/16 05:29 Dose: 166.667 mls/hr Norepinephrine Bitartrate 8, (000 mcg/ Dextrose) 500 mls @ 18.75 mls/hr IV TITR STEVEN; 5 MCG/MIN PRN Reason: Protocol Last Titration: 11/14/16 12:15 Dose: 0 mcg/min Pantoprazole Sodium (Protonix 40mg Ivpb (Pre-Docked)) 100 mls @ 200 mls/hr IVPB BID STEVEN - Objective Vital Signs: Vital Signs Temperature 98.6 F 11/14/16 11:00 Pulse Rate 53 L 11/14/16 14:55 Respiratory Rate 13 11/14/16 14:55 Blood Pressure 92/51 11/14/16 14:55 O2 Sat by Pulse Oximetry (%) 100 11/14/16 12:16 Constitutional: Yes: Other Cardiovascular: Yes: Regular Rate and Rhythm Respiratory: Yes: Regular Gastrointestinal: Yes: Normal Bowel Sounds, Soft Musculoskeletal: Yes: Other Extremities: Yes: Other Integumentary: Yes: Rash, Other (patient has multiple pressure ulcers) Neurological: Yes: Other Labs: CBC, BMP 11/14/16 05:00 11/14/16 05:00 INR, PTT INR 1.69 (0.82-1.09) H 11/12/16 08:10 Assessment/Plan decubitus ulcer multiple pressure ulcer infected peg tube site septic shock lactic acidosis hypotension hypthermia esrd cva gram positive bacteremia rash plan continue abx will send a repeat blood cx if negative will stop vanco as per nephro consider dermatology consult multiple dsg cc time 40 time
--- NOTE | 2016-11-14 16:05 | PN ---
Teaching Attending Note Name of Resident: Ros Dias ATTENDING PHYSICIAN STATEMENT I saw and evaluated the patient. I reviewed the resident's note and discussed the case with the resident. I agree with the resident's findings and plan as documented. lying in bed nonverbal Vital Signs Temperature 98.6 F 11/14/16 11:00 Pulse Rate 53 L 11/14/16 14:55 Respiratory Rate 13 11/14/16 14:55 Blood Pressure 92/51 11/14/16 14:55 O2 Sat by Pulse Oximetry (%) 100 11/14/16 15:25 CBCD WBC 5.3 K/mm3 (4.0-10.0) 11/14/16 05:00 RBC 2.55 M/mm3 (4.00-5.60) L D 11/14/16 05:00 Hgb 8.0 GM/dL (11.7-16.9) L D 11/14/16 05:00 Hct 22.5 % (35.4-49) L D 11/14/16 05:00 MCV 88.4 fl (80-96) 11/14/16 05:00 MCHC 35.4 g/dl (32.0-35.9) 11/14/16 05:00 RDW 20.1 % (11.9-15.9) H D 11/14/16 05:00 Plt Count 100 K/MM3 (134-434) L D 11/14/16 05:00 MPV 8.2 fl (7.5-11.1) D 11/14/16 05:00 CMP Sodium 141 mmol/L (136-145) 11/14/16 05:00 Potassium 4.1 mmol/L (3.5-5.1) 11/14/16 05:00 Chloride 102 mmol/L (98-107) 11/14/16 05:00 Carbon Dioxide 26 mmol/L (21-32) 11/14/16 05:00 Anion Gap 13 (8-16) 11/14/16 05:00 BUN 75 mg/dL (7-18) H 11/14/16 05:00 Creatinine 2.6 mg/dL (0.7-1.3) H 11/14/16 05:00 Creat Clearance w eGFR 24.05 (>60) 11/14/16 05:00 Random Glucose 235 mg/dL (74-106) H 11/14/16 05:00 Calcium 7.7 mg/dL (8.5-10.1) L 11/14/16 05:00 Total Bilirubin 1.0 mg/dL (0.2-1.0) 11/14/16 05:00 AST 36 U/L (15-37) D 11/14/16 05:00 ALT 29 U/L (12-78) D 11/14/16 05:00 Alkaline Phosphatase 198 U/L (45-117) H 11/14/16 05:00 Total Protein 5.3 g/dl (6.4-8.2) L 11/14/16 05:00 Albumin 2.4 g/dl (3.4-5.0) L 11/14/16 05:00 CARDIAC ENZYMES Creatine Kinase 28 IU/L (39-308) L 11/12/16 01:41 Troponin I 0.08 ng/ml (0.00-0.05) H D 11/12/16 08:10 Current Medications Generic Name Dose Route Start Last Admin Trade Name Freq PRN Reason Stop Dose Admin Hydrocortisone Sodium Succinate 100 mg 11/12/16 13:00 11/14/16 10:05 Solu-Cortef - IVPB 100 mg Q8H-IV STEVEN Administration Piperacillin Sod/Tazobactam Sod 50 mls @ 100 mls/hr 11/12/16 14:00 11/14/16 10: 05 Zosyn 2.25gm Ivpb (Pre-Docked) IVPB 100 mls/hr Q8H-IV STEVEN Administration Protocol Vancomycin HCl 250 mls @ 166.667 mls/hr 11/14/16 05:00 11/14/16 05:29 Vancomycin (Pre-Docked) IVPB 166.667 mls/hr Q2D@0500 STEVEN Administration Protocol Norepinephrine Bitartrate 8, 500 mls @ 18.75 mls/hr 11/13/16 18:30 11/14/16 12: 15 000 mcg/ Dextrose IV 0 mcg/min TITR STEVEN Titration Protocol 5 MCG/MIN Pantoprazole Sodium 100 mls @ 200 mls/hr 11/14/16 22:00 Protonix 40mg Ivpb (Pre-Docked) IVPB BID [facility] Home Medications Medication Instructions Recorded Atorvastatin Ca [Lipitor] 80 mg PO HS 11/12/16 Esomeprazole Magnesium 40 mg PO DAILY 11/12/16 Ferrous Sulfate 325 mg PO DAILY 11/12/16 Hydrocortisone 20 mg PO DAILY 11/12/16 Levothyroxine [Synthroid -] 50 mcg PO DAILY 11/12/16 Magnesium Hydroxide [Milk of 400 mg PO DAILY 11/12/16 Magnesia] Midodrine HCl 5 mg PO DAILY 11/12/16 Sevelamer Carbonate [Renvela] 800 mg PO DAILY 11/12/16 Vitamin B Comp W-C [Nephro-Daily -] 1 tablet PO DAILY 11/12/16 11/12/16 08:10 Blood - Peripheral Venous Blood Culture - Preliminary Pending Organism 11/12/16 08:10 Blood - Peripheral Venous Blood Culture - Preliminary NO GROWTH OBTAINED AFTER 24 HOURS, INCUBATION TO CONTINUE FOR 4 DAYS. ASSESSMENT AND PLAN: Patient is a 76 y/o M w/PMHx of hypotension, HLD, hypothyroidism, DM, COPD, ESRD , GERD, s/p tracheostomy, s/p gastrostomy presented to ER from [facility] for coffee ground emesis. Pt is contracted, was found to be hypotensive, hypothermic, w/anasarca requiring pressors. # Septic shock on levophed continue ,rate is being tapered down ; goal MAP > 65 ; vanco x 1 dose given in ER and cefepime in ER , as per ID to continue with Vancomycin and Zosyn . #Anemia secondary to Upper GI bleed ;IV protonix drip continue, hemoglobin 7.1- ->6.2--->8.0 s/p 2 units of tansfusion . GI Dr. Nicolas is on the case. # Anasarca secondary to renal failure vs malnutrition/protein malnutrition s/p albumin given in Ed. # ESRD on HD Nephro consult for further management # Acute Transaminitis due to septic shock, continue monitoring LFTs # Decubitus Ulcer unstageable with possible Osteomyelitis Poor Prognosis with multi organ failure, will get Palliative care involved. Code status: son - Matthew Jimenez . will discuss with his mother ( the of the patient) regarding DNR status DVT: Anticoagulation is contraindicated since having GI bleed, SCDs contraindicated with multiple pressure ulcers
[2016-11-14 18:01] LABS: BASOPHIL 0.2 % (0-2.0); EOSINOPHIL 0.1 % (0-4.5); MCH 30.6 pg (25.7-33.7); MCHC 34.4 g/dl (32.0-35.9); MEAN CELL VOLUME 89.1 fl (80-96); MEAN PLT VOLUME 8.5 fl (7.5-11.1); NEUTROPHILS 90.1 % (42.8-82.8); PLATELET COUNT 63 K/MM3 (134-434); RDW 20.7 % (11.9-15.9); WHITE BLOOD COUNT 3.9 K/mm3 (4.0-10.0)
[2016-11-14 19:04] LABS: ANISOCYTOSIS 2+; HYPOCHROMIA 1+; MICROCYTOSIS 1+; PLATELET ESTIMATE DECREASED (NORMAL); TARGET CELLS FEW
[2016-11-14] MEDS ORDERED: DOPAMINE 400 MG/D5W - 250 ML IVPB SCH (19:15)
[2016-11-14] MEDS: NOREPINEPHRINE BITARTRATE 8,000 MCG in DEXTROSE 5%-WATER - 492 ML IV SCH (19:39)
[2016-11-14] MEDS: PANTOPRAZOLE SODIUM 100 ML IVPB SCH (21:31)
[2016-11-15] MEDS: PIPERACILLIN/TAZOB 2.25 GM 50 ML IVPB SCH ×2 (01:50→11:12)
[2016-11-15] MEDS: HYDROCORTISONE SOD SUCCINATE 100 MG/2 ML VIAL IVPB SCH ×3 (02:29→18:21)
--- NOTE | 2016-11-15 09:52 | PN ---
Progress Note, Physician Chief Complaint: no acute distress History of Present Illness: on dopamine gtts TELE: 2 short episodes of PAF, self terminating -Episodes of sinus bradycardia into low 40s - Current Medication List Current Medications: Active Medications Hydrocortisone Sodium Succinate (Solu-Cortef -) 100 mg IVPB Q8H-IV STEVEN Last Admin: 11/15/16 02:29 Dose: 100 mg Piperacillin Sod/Tazobactam Sod (Zosyn 2.25gm Ivpb (Pre-Docked)) 50 mls @ 100 mls/hr IVPB Q8H-IV STEVEN PRN Reason: Protocol Last Admin: 11/15/16 01:50 Dose: 100 mls/hr Vancomycin HCl (Vancomycin (Pre-Docked)) 250 mls @ 166.667 mls/hr IVPB Q2D@ 0500 STEVEN PRN Reason: Protocol Last Admin: 11/14/16 05:29 Dose: 166.667 mls/hr Norepinephrine Bitartrate 8, (000 mcg/ Dextrose) 500 mls @ 18.75 mls/hr IV TITR STEVEN; 5 MCG/MIN PRN Reason: Protocol Last Titration: 11/14/16 19:50 Dose: 0 mcg/min Pantoprazole Sodium (Protonix 40mg Ivpb (Pre-Docked)) 100 mls @ 200 mls/hr IVPB BID STEVEN Last Admin: 11/14/16 21:31 Dose: 200 mls/hr Dopamine HCl/Dextrose (Dopamine 400 Mg/D5w -) 250 mls @ 14.858 mls/hr IVPB TITR STEVEN; 5 MCG/KG/MIN PRN Reason: Protocol Last Titration: 11/15/16 07:30 Dose: 2 mcg/kg/min - Objective Vital Signs: Vital Signs Temperature 97.5 F L 11/15/16 06:00 Pulse Rate 50 L 11/15/16 08:00 Respiratory Rate 12 11/15/16 08:00 Blood Pressure 114/62 11/15/16 08:00 O2 Sat by Pulse Oximetry (%) 100 11/15/16 08:00 Constitutional: Yes: No Distress Cardiovascular: Yes: Regular Rate and Rhythm Respiratory: Yes: Other (decreased breath sounds at bases) Gastrointestinal: Yes: Soft Edema: No Labs: INR, PTT INR 1.69 (0.82-1.09) H 11/12/16 08:10 Microbiology Laboratory Tests 11/12/16 11/14/16 11/14/16 08:10 05:00 17:20 WBC 3.9 L Hgb 7.8 L Hct Plt Count 63 L D INR 1.69 H Sodium 141 Potassium 4.1 BUN 75 H Creatinine 2.6 H 11/15/16 08:30 WBC Pending Hgb Pending Hct Pending Plt Count Pending INR Sodium Potassium BUN Creatinine - ....Imaging EKG: Image Reviewed Assessment/Plan Assessment/Plan 76 year old man with a history of hypotension on midodrine, hld, DMII, COPD, ESRD on HD, CVA 2009, tracheostomy with vent dependence, recent long hospital stay at [facility] with septic shock, anoxic encephalopathy, sent to [place], now admitted with possible UGIB and septic shock. Pt noted to have sinus bradycardia on tele during admission with HR as low as 39bpm. Bradycardia-sinus HR ranging 40s-70s, no sign of high degree heart block -likely related to sepsis and septic shock -Now with 2 short episodes of self limited PAF -contiue telemetry -AC on hold due to anemia and possible GI bleed -avoid any AV eda blocking medications
[2016-11-15] MEDS ORDERED: PANTOPRAZOLE SODIUM 100 ML IVPB SCH (10:00)
[2016-11-15 10:15] LABS: CALCIUM 7.8 mg/dL (8.5-10.1); CREATININE 2.1 mg/dL (0.7-1.3)
[2016-11-15 10:20] LABS: BASOPHIL 0.2 % (0-2.0); EOSINOPHIL 0.1 % (0-4.5); MCH 30.7 pg (25.7-33.7); MCHC 34.1 g/dl (32.0-35.9); MEAN CELL VOLUME 89.8 fl (80-96); MEAN PLT VOLUME 8.8 fl (7.5-11.1); NEUTROPHILS 81.9 % (42.8-82.8); PLATELET COUNT 40 K/MM3 (134-434); RDW 21.2 % (11.9-15.9)
[2016-11-15] MEDS: PANTOPRAZOLE SODIUM 100 ML IVPB SCH ×2 (11:12→21:40)
[2016-11-15] MEDS ORDERED: KETOCONAZOLE 2% CREAM - 60GM TUBE TP SCH (12:15)
--- NOTE | 2016-11-15 12:28 | PN ---
Teaching Attending Note Name of Resident: Cl Torre ATTENDING PHYSICIAN STATEMENT I saw and evaluated the patient. I reviewed the resident's note and discussed the case with the resident. I agree with the resident's findings and plan as documented. SUBJECTIVE: Pt seen and examined in the ICU. Vented, poorly responsive. Remains on low dose levophed gtt. OBJECTIVE: Last Vital Signs Temp Pulse Resp BP Pulse Ox 97.2 F L 50 L 13 116/62 100 11/15/16 10:00 11/15/16 11:28 11/15/16 11:37 11/15/16 11:28 11/15/16 10:00 Intake & Output 11/12/16 11/13/16 11/14/16 11/15/16 23:59 23:59 23:59 23:59 Intake Total 1423 2429.2 1519 162 Output Total 1200 50 0 0 Balance 223 2379.2 1519 162 Weight 168 lb 6.4 oz 169 lb 12.8 oz 174 lb 11.2 oz 175 lb 1.6 oz Gen: vented, poorly responsive Heart: RRR Lung: decreased breath sounds at the bases Abd: soft, nontender Ext: + edema CBC, BMP 11/15/16 08:30 11/15/16 08:30 Active Medications Amino Acids (Prosource No Carb Liquid Pkt) 30 ml PO BID@0800,1730 STEVEN Hydrocortisone Sodium Succinate (Solu-Cortef -) 100 mg IVPB Q8H-IV STEVEN Last Admin: 11/15/16 11:12 Dose: 100 mg Piperacillin Sod/Tazobactam Sod (Zosyn 2.25gm Ivpb (Pre-Docked)) 50 mls @ 100 mls/hr IVPB Q8H-IV STEVEN PRN Reason: Protocol Last Admin: 11/15/16 11:12 Dose: 100 mls/hr Vancomycin HCl (Vancomycin (Pre-Docked)) 250 mls @ 166.667 mls/hr IVPB Q2D@ 0500 STEVEN PRN Reason: Protocol Last Admin: 11/14/16 05:29 Dose: 166.667 mls/hr Norepinephrine Bitartrate 8, (000 mcg/ Dextrose) 500 mls @ 18.75 mls/hr IV TITR STEVEN; 5 MCG/MIN PRN Reason: Protocol Last Titration: 11/14/16 19:50 Dose: 0 mcg/min Pantoprazole Sodium (Protonix 40mg Ivpb (Pre-Docked)) 100 mls @ 200 mls/hr IVPB BID STEVEN Last Admin: 11/15/16 11:12 Dose: 200 mls/hr Dopamine HCl/Dextrose (Dopamine 400 Mg/D5w -) 250 mls @ 14.858 mls/hr IVPB TITR STEVEN; 5 MCG/KG/MIN PRN Reason: Protocol Last Titration: 11/15/16 11:28 Dose: 0 mcg/kg/min Ketoconazole (Nizoral 2% Cream -) 1 applic TP DAILY STEVEN ASSESSMENT AND PLAN: Sacral Decubitus Ulcer Infection Gram Positive Bacteremia Septic Shock Lactic Acidosis ESRD on HD Chronic Hypotension h/o CVA Anoxic Encephalopathy Anemia - continue antibiotics - f/u cultures - surgery eval of ulcers - midodrine - taper off levophed gtt to maintain MAP >50 - HD per renal - monitor H/H - establish peripheral access - poor prognosis for any meaningful recovery, approaching medical futility, will get palliative care evaluation - DVT/GI prophylaxis
--- NOTE | 2016-11-15 12:34 | PN ---
Addendum entered and electronically signed by Cl Torre RES 11/15/16 14:42 : Io removed, no bleeding. Dressing done at io site Original Note: Physical Exam: SUBJECTIVE: Patient seen and examined, Patient seen and examined, patient lying in bed, non verbal. non responding, on mechanical ventilation. Off norepi family not present OBJECTIVE: Vital Signs Period Temp Pulse Resp BP Sys/Vang Pulse Ox Last 24 Hr 97.2 F-97.8 F 44-80 12-16 90-149/50-73 93-100 GENERAL: The patient is nonverbal, contracted, lying in bed, open his eyes HEAD: Normal with no signs of trauma. EYES: right eye operated, left eye 2 mm slugish reacting ENT: moist oral mucosa , nares patent NECK: tracheostomy present, attached to venti. LUNGS: decreased Breath sounds BL base , no accessory muscle use. On ventilator HEART: 1s2 normal, regular. ABDOMEN: Soft, nontender, g tube in situ, no blood in g tube, lower EXTREMITIES: swollen multiple ulcers present on b/l lower extremities MUSCULOSKELETAL: Contracted, bed sore on sacrum present. NEUROLOGICAL: gag reflex present, responds to painful stimuli. PSYCH: Unable to access SKIN: Warm, dry,multiple pressure ulcers (on feet, calves, back, gluteal region ) with Decubitus Ulcer Laboratory Results - last 24 hr 11/13/16 11/13/16 11/14/16 05:25 05:25 14:30 WBC RBC Hgb Hct MCV MCHC RDW Plt Count MPV Neutrophils % Lymphocytes % Monocytes % Eosinophils % Basophils % Platelet Estimate Platelet Comment Hypochromic-Microcytic Anisocytosis Microcytosis Target Cells Sodium Potassium Chloride Carbon Dioxide Anion Gap BUN Creatinine Random Glucose Calcium Free T3 1.1 L Cortisol AM Sample 80.9 Hepatitis C Antibody Cancelled 11/14/16 11/15/16 11/15/16 17:20 08:30 08:30 WBC 3.9 L 2.0 L D RBC 2.55 L 2.57 L Hgb 7.8 L 7.9 L Hct 22.7 L 23.1 L MCV 89.1 89.8 MCHC 34.4 34.1 RDW 20.7 H 21.2 H Plt Count 63 L D 40 L D MPV 8.5 8.8 Neutrophils % 90.1 H 81.9 Lymphocytes % 5.9 L D 12.6 D Monocytes % 3.7 L D 5.2 Eosinophils % 0.1 0.1 Basophils % 0.2 0.2 Platelet Estimate Decreased Platelet Comment No clumping noted Hypochromic-Microcytic 1+ Anisocytosis 2+ Microcytosis 1+ Target Cells Few Sodium 141 Potassium 3.2 L D Chloride 104 Carbon Dioxide 25 Anion Gap 12 BUN 55 H D Creatinine 2.1 H Random Glucose 231 H Calcium 7.8 L Free T3 Cortisol AM Sample Hepatitis C Antibody Active Medications Generic Name Dose Route Start Last Admin Trade Name Freq PRN Reason Stop Dose Admin Amino Acids 30 ml 11/15/16 17:30 Prosource No Carb Liquid Pkt PO BID@0800,1730 [facility] Hydrocortisone Sodium Succinate 100 mg 11/12/16 13:00 11/15/16 11:12 Solu-Cortef - IVPB 100 mg Q8H-IV STEVEN Administration Piperacillin Sod/Tazobactam Sod 50 mls @ 100 mls/hr 11/12/16 14:00 11/15/16 11: 12 Zosyn 2.25gm Ivpb (Pre-Docked) IVPB 100 mls/hr Q8H-IV STEVEN Administration Protocol Vancomycin HCl 250 mls @ 166.667 mls/hr 11/14/16 05:00 11/14/16 05:29 Vancomycin (Pre-Docked) IVPB 166.667 mls/hr Q2D@0500 STEVEN Administration Protocol Norepinephrine Bitartrate 8, 500 mls @ 18.75 mls/hr 11/13/16 18:30 11/14/16 19: 50 000 mcg/ Dextrose IV 0 mcg/min TITR STEVEN Titration Protocol 5 MCG/MIN Pantoprazole Sodium 100 mls @ 200 mls/hr 11/14/16 22:00 11/15/16 11:12 Protonix 40mg Ivpb (Pre-Docked) IVPB 200 mls/hr BID STEVEN Administration Dopamine HCl/Dextrose 250 mls @ 14.858 mls/hr 11/14/16 19:15 11/15/16 11:28 Dopamine 400 Mg/D5w - IVPB 0 mcg/kg/min TITR STEVEN Titration Protocol 5 MCG/KG/MIN Ketoconazole 1 applic 11/15/16 12:15 Nizoral 2% Cream - TP DAILY STEVEN Microbiology 11/13/16 00:29 Hip - Left Gram Stain - Final 11/13/16 00:29 Hip - Left Wound Culture - Preliminary Escherichia Coli Esbl Real Time Operator Pseudomonas Aeruginosa Morganella Morganii 11/12/16 07:00 Back Gram Stain - Final 11/12/16 07:00 Back Wound Culture - Preliminary Lactose Fermenting Neg Bacilli Pseudomonas Aeruginosa Non Lactose Fermenting Gnb#2 11/12/16 08:10 Blood - Peripheral Venous Blood Culture - Preliminary Staphylococcus Coagulase Neg 11/12/16 08:10 Blood - Peripheral Venous Blood Culture - Preliminary NO GROWTH OBTAINED AFTER 72 HOURS, INCUBATION TO CONTINUE FOR 2 DAYS. ASSESSMENT/PLAN: Septic Shock with Lactic Acidosis could be from infected ulcers. Sacral Decubitus Ulcer with multiple ulcer on b/ l lower limb Gram Positive Bacteremia continue antibiotic as per id zosyn and vanco off levophed and dopamine surgery consult for ulcers culture from ulcer e coli esbl, pseudomonas. morganella morganii monitor vitals Regular dressing of ulcer. change position regularly started on tube feed ESRD cr .1--> 2.6---. 2.1 nephro on case HD as per nephrology avoid nephrotoxic drugs Anemia no new episode on lissette and coffee color emesis could be from ESRD/ anemia of chronic ds monitor haemoglobin, patient had received 2 units of PC, 2 plt, 2 pp on iv protonix bid Encephalopathy could be anoxic unresponsive poor prognosis for any meaningful recovery -palliative care consult FEN fluid ; avoid iv elctrolyte ; hypokalemia nutrition tube feed as per dietitian recommendation DVT pro : on scd, anti coag is contraindicated due to gi bleed Matthew Jimenez at [phone], palliative care team talked to him. In 1 to 2 days He will come in and will also bring his mother to talk to palliative care team. Dispo : tranfer to med surg. Visit type - Emergency Visit Emergency Visit: Yes ED Registration Date: 11/12/16 Care time: The patient presented to the Emergency Department on the above date and was hospitalized for further evaluation of their emergent condition. - New Patient This patient is new to me today: No - Critical Care Critical Care patient: Yes Total Critical Care Time (in minutes): 45 Critical Care Statement: The care of this patient involved high complexity decision making to prevent further life threatening deterioration of the patient 's condition and/or to evalute & treat vital organ system(s) failure or risk of failure.
--- NOTE | 2016-11-15 13:35 | PN ---
Progress Note, Physician History of Present Illness: Pt seen and examined at bedside. He remains in the ICU. His blood pressure is improved. He tolerated HD yesterday. - Current Medication List Current Medications: Active Medications Amino Acids (Prosource No Carb Liquid Pkt) 30 ml PO BID@0800,1730 [facility] Hydrocortisone Sodium Succinate (Solu-Cortef -) 100 mg IVPB Q8H-IV STEVEN Last Admin: 11/15/16 11:12 Dose: 100 mg Piperacillin Sod/Tazobactam Sod (Zosyn 2.25gm Ivpb (Pre-Docked)) 50 mls @ 100 mls/hr IVPB Q8H-IV STEVEN PRN Reason: Protocol Last Admin: 11/15/16 11:12 Dose: 100 mls/hr Vancomycin HCl (Vancomycin (Pre-Docked)) 250 mls @ 166.667 mls/hr IVPB Q2D@ 0500 STEVEN PRN Reason: Protocol Last Admin: 11/14/16 05:29 Dose: 166.667 mls/hr Norepinephrine Bitartrate 8, (000 mcg/ Dextrose) 500 mls @ 18.75 mls/hr IV TITR STEVEN; 5 MCG/MIN PRN Reason: Protocol Last Titration: 11/14/16 19:50 Dose: 0 mcg/min Pantoprazole Sodium (Protonix 40mg Ivpb (Pre-Docked)) 100 mls @ 200 mls/hr IVPB BID STEVEN Last Admin: 11/15/16 11:12 Dose: 200 mls/hr Dopamine HCl/Dextrose (Dopamine 400 Mg/D5w -) 250 mls @ 14.858 mls/hr IVPB TITR STEVEN; 5 MCG/KG/MIN PRN Reason: Protocol Last Titration: 11/15/16 11:28 Dose: 0 mcg/kg/min Ketoconazole (Nizoral 2% Cream -) 1 applic TP DAILY [facility] - Objective Vital Signs: Vital Signs Temperature 97.2 F L 11/15/16 10:00 Pulse Rate 44 L 11/15/16 13:00 Respiratory Rate 12 11/15/16 13:00 Blood Pressure 104/58 11/15/16 13:00 O2 Sat by Pulse Oximetry (%) 100 11/15/16 13:16 Constitutional: Yes: Calm Eyes: Yes: Conjunctiva Clear Neck: Yes: Other (trache) Cardiovascular: Yes: S1, S2 Respiratory: Yes: Mechanically Ventilated Gastrointestinal: Yes: Soft Genitourinary: Yes: Anuria, Incontinence Musculoskeletal: Yes: Muscle Weakness Edema: Yes Integumentary: Yes: Pressure Ulcer Neurological: Yes: Pre-Existing Deficit Labs: CBC, BMP 11/15/16 08:30 11/15/16 08:30 INR, PTT INR 1.69 (0.82-1.09) H 11/12/16 08:10 Problem List - Problems (1) GORDON (acute kidney injury) Code(s): N17.9 - ACUTE KIDNEY FAILURE, UNSPECIFIED (2) Anasarca Code(s): R60.1 - GENERALIZED EDEMA (3) Anemia Code(s): D64.9 - ANEMIA, UNSPECIFIED (4) CHF (congestive heart failure) Code(s): I50.9 - HEART FAILURE, UNSPECIFIED (5) CKD (chronic kidney disease) Code(s): N18.9 - CHRONIC KIDNEY DISEASE, UNSPECIFIED (6) Fluid overload Code(s): E87.70 - FLUID OVERLOAD, UNSPECIFIED (7) History of CVA (cerebrovascular accident) Code(s): Z86.73 - PRSNL HX OF TIA (TIA), AND CEREB INFRC W/O RESID DEFICITS Assessment/Plan Current Medications Generic Name Dose Route Start Last Admin Trade Name Armando PRN Reason Stop Dose Admin Amino Acids 30 ml 11/15/16 17:30 Prosource No Carb Liquid Pkt PO BID@0800,1730 [facility] Hydrocortisone Sodium Succinate 100 mg 11/12/16 13:00 11/15/16 11:12 Solu-Cortef - IVPB 100 mg Q8H-IV STEVEN Administration Piperacillin Sod/Tazobactam Sod 50 mls @ 100 mls/hr 11/12/16 14:00 11/15/16 11: 12 Zosyn 2.25gm Ivpb (Pre-Docked) IVPB 100 mls/hr Q8H-IV STEVEN Administration Protocol Vancomycin HCl 250 mls @ 166.667 mls/hr 11/14/16 05:00 11/14/16 05:29 Vancomycin (Pre-Docked) IVPB 166.667 mls/hr Q2D@0500 STEVEN Administration Protocol Norepinephrine Bitartrate 8, 500 mls @ 18.75 mls/hr 11/13/16 18:30 11/14/16 19: 50 000 mcg/ Dextrose IV 0 mcg/min TITR STEVEN Titration Protocol 5 MCG/MIN Pantoprazole Sodium 100 mls @ 200 mls/hr 11/14/16 22:00 11/15/16 11:12 Protonix 40mg Ivpb (Pre-Docked) IVPB 200 mls/hr BID STEVEN Administration Dopamine HCl/Dextrose 250 mls @ 14.858 mls/hr 11/14/16 19:15 11/15/16 11:28 Dopamine 400 Mg/D5w - IVPB 0 mcg/kg/min TITR STEVEN Titration Protocol 5 MCG/KG/MIN Ketoconazole 1 applic 11/15/16 12:15 Nizoral 2% Cream - TP DAILY STEVEN Impression 1. ESRD 2. hypotension 3. chronic respiratory failrue 4. sepsis 5. Anemia 6. GI bleed 7. CVA 8. DM 9. Hypothyroidism 10. pancytopenia Plan - pt tolerated HD yesterday - cont with feeds - monitor blood pressure - will evaluate for HD in am - discussed with ICU team - cont wound care - epogen for anemia - family meeting to discuss GOC - prognosis poor - will follow Dr Mireles
--- NOTE | 2016-11-15 14:24 | PN ---
Addendum entered and electronically signed by Ros Dias RES 11/15/16 14: 52: Info obtained from NH: Patient baseline on vent, unresponsive, HD MWF. contact son Matthew Jimenez [phone] Original Note: Physical Exam: SUBJECTIVE: Patient seen and examined Patient resting in bed, unresponsive but opening eyes occasionally. Was started on dopamine at night due to bradycardia in 50's but this is baseline HD for patient. afebrile hemodynamically stable. Mechanically ventilated, no change in vent settings. No further hematemesis. anuric. Weaned off levophed yesterday. s/ p HD yesterday. OBJECTIVE: Vital Signs Period Temp Pulse Resp BP Sys/Vang Pulse Ox Last 24 Hr 97.2 F-97.7 F 44-80 12-16 90-149/50-73 93-100 GENERAL: unresponsive, opens eyes but doesnt look around. 3+ anasarca HEAD: Normal with no signs of trauma. EYES: sclera anicteric, conjunctiva clear. ENT: moist mucous membranes. NECK: supple. LUNGS: diffuse ronchi, trach, vent. HEART: Regular rate and rhythm, S1, S2 ABDOMEN: Soft, nondistended, globally reduced bowel sounds, Peg in place EXTREMITIES: 1+ pulses, warm, 3+ edema. b/l pressure ulcers on heels with black echar. clean dressing in place Sacrum: unstageable pressure ulcer with black echar, malodorous. NEUROLOGICAL: symmetrical face PSYCH: unable to assess SKIN: Warm, dry Laboratory Results - last 24 hr 11/13/16 11/13/16 11/14/16 05:25 05:25 14:30 WBC RBC Hgb Hct MCV MCHC RDW Plt Count MPV Neutrophils % Lymphocytes % Monocytes % Eosinophils % Basophils % Platelet Estimate Platelet Comment Hypochromic-Microcytic Anisocytosis Microcytosis Target Cells Sodium Potassium Chloride Carbon Dioxide Anion Gap BUN Creatinine Random Glucose Calcium Free T3 1.1 L Cortisol AM Sample 80.9 Hepatitis C Antibody Cancelled 11/14/16 11/15/16 11/15/16 17:20 08:30 08:30 WBC 3.9 L 2.0 L D RBC 2.55 L 2.57 L Hgb 7.8 L 7.9 L Hct 22.7 L 23.1 L MCV 89.1 89.8 MCHC 34.4 34.1 RDW 20.7 H 21.2 H Plt Count 63 L D 40 L D MPV 8.5 8.8 Neutrophils % 90.1 H 81.9 Lymphocytes % 5.9 L D 12.6 D Monocytes % 3.7 L D 5.2 Eosinophils % 0.1 0.1 Basophils % 0.2 0.2 Platelet Estimate Decreased Platelet Comment No clumping noted Hypochromic-Microcytic 1+ Anisocytosis 2+ Microcytosis 1+ Target Cells Few Sodium 141 Potassium 3.2 L D Chloride 104 Carbon Dioxide 25 Anion Gap 12 BUN 55 H D Creatinine 2.1 H Random Glucose 231 H Calcium 7.8 L Free T3 Cortisol AM Sample Hepatitis C Antibody Active Medications Generic Name Dose Route Start Last Admin Trade Name Freq PRN Reason Stop Dose Admin Amino Acids 30 ml 11/15/16 17:30 Prosource No Carb Liquid Pkt PO BID@0800,1730 [facility] Hydrocortisone Sodium Succinate 100 mg 11/12/16 13:00 11/15/16 11:12 Solu-Cortef - IVPB 100 mg Q8H-IV STEVEN Administration Piperacillin Sod/Tazobactam Sod 50 mls @ 100 mls/hr 11/12/16 14:00 11/15/16 11: 12 Zosyn 2.25gm Ivpb (Pre-Docked) IVPB 100 mls/hr Q8H-IV STEVEN Administration Protocol Vancomycin HCl 250 mls @ 166.667 mls/hr 11/14/16 05:00 11/14/16 05:29 Vancomycin (Pre-Docked) IVPB 166.667 mls/hr Q2D@0500 STEVEN Administration Protocol Norepinephrine Bitartrate 8, 500 mls @ 18.75 mls/hr 11/13/16 18:30 11/14/16 19: 50 000 mcg/ Dextrose IV 0 mcg/min TITR STEVEN Titration Protocol 5 MCG/MIN Pantoprazole Sodium 100 mls @ 200 mls/hr 11/14/16 22:00 11/15/16 11:12 Protonix 40mg Ivpb (Pre-Docked) IVPB 200 mls/hr BID STEVEN Administration Dopamine HCl/Dextrose 250 mls @ 14.858 mls/hr 11/14/16 19:15 11/15/16 11:28 Dopamine 400 Mg/D5w - IVPB 0 mcg/kg/min TITR STEVEN Titration Protocol 5 MCG/KG/MIN Ketoconazole 1 applic 11/15/16 12:15 Nizoral 2% Cream - TP DAILY STEVEN ASSESSMENT/PLAN: This is a 76 yo M with PMH of hypotension, HLD, hypothyroidism, DM, COPD, ESRD, GERD, s/p tracheostomy, s/p gastrostomy presented to ER from [facility] for coffee ground emesis. Septic shock -likley source sacral decubitus ulcer -unstageable ulcer, vascular consult for possible debridement -Gram Positive Bacteremia in 1/2 bottles, likely staph, likely contaminant -Lactic Acidosis -ID consult appreciated, reculture blood, if negative stop zosyn -wound culture: pseudomonas, ESBL -continue vanco and zosyn -strict I and O (anuric) ESRD on HD -s/p HD yesterday, tolerated -anuric -nephro consult appreciated, evaluate for HD tomorrow Chronic Hypotension -weaned off levophed -wean off dopamine Acute on chronic Anemia -aggravated by GIB -coffee ground emesis resolved -s/p 2 u pRBC, FFP, platelets -hgb stable at 7.9 -monitor h/h -epogen -IV PPI BID Anoxic Encephalopathy -unresponsive but opens eyes-slight improvement -unlikely to have meaningful recovery -grave prognosis -palliative care consult, attemptimg to reach family FEN no IVF lytes stable start tube feeds Dispo: stable for xfer to 5s Problem List - Problems (1) GORDON (acute kidney injury) Code(s): N17.9 - ACUTE KIDNEY FAILURE, UNSPECIFIED (2) Anasarca Code(s): R60.1 - GENERALIZED EDEMA (3) Anemia Code(s): D64.9 - ANEMIA, UNSPECIFIED (4) CHF (congestive heart failure) Code(s): I50.9 - HEART FAILURE, UNSPECIFIED (5) CKD (chronic kidney disease) Code(s): N18.9 - CHRONIC KIDNEY DISEASE, UNSPECIFIED (6) Elevated INR Code(s): R79.1 - ABNORMAL COAGULATION PROFILE (7) Elevated brain natriuretic peptide (BNP) level Code(s): R79.89 - OTHER SPECIFIED ABNORMAL FINDINGS OF BLOOD CHEMISTRY (8) Fluid overload Code(s): E87.70 - FLUID OVERLOAD, UNSPECIFIED (9) History of CVA (cerebrovascular accident) Code(s): Z86.73 - PRSNL HX OF TIA (TIA), AND CEREB INFRC W/O RESID DEFICITS (10) Hypoalbuminemia Code(s): E88.09 - OTH DISORDERS OF PLASMA-PROTEIN METABOLISM, NEC (11) Hypotension Code(s): I95.9 - HYPOTENSION, UNSPECIFIED Qualifiers: Hypotension type: unspecified hypotension type Qualified Code(s): I95.9 - Hypotension, unspecified (12) Passes no urine Code(s): R34 - ANURIA AND OLIGURIA (13) Pressure ulcer Code(s): L89.90 - PRESSURE ULCER OF UNSPECIFIED SITE, UNSPECIFIED STAGE (14) Pressure ulcer of ankle Code(s): L89.509 - PRESSURE ULCER OF UNSPECIFIED ANKLE, UNSPECIFIED STAGE (15) Pressure ulcer of back Code(s): L89.109 - PRESSURE ULCER OF UNSP PART OF BACK, UNSPECIFIED STAGE (16) Sacral decubitus ulcer, stage IV Code(s): L89.154 - PRESSURE ULCER OF SACRAL REGION, STAGE 4 (17) Sepsis Code(s): A41.9 - SEPSIS, UNSPECIFIED ORGANISM Qualifiers: Sepsis type: sepsis due to unspecified organism Qualified Code(s): A41.9 - Sepsis, unspecified organism (18) Septic shock Code(s): A41.9 - SEPSIS, UNSPECIFIED ORGANISM R65.21 - SEVERE SEPSIS WITH SEPTIC SHOCK (19) Thrombocytopenia Code(s): D69.6 - THROMBOCYTOPENIA, UNSPECIFIED (20) Transaminitis Code(s): R74.0 - NONSPEC ELEV OF LEVELS OF TRANSAMNS & LACTIC ACID DEHYDRGNSE (21) Upper GI bleed Code(s): K92.2 - GASTROINTESTINAL HEMORRHAGE, UNSPECIFIED Visit type - Emergency Visit Emergency Visit: Yes ED Registration Date: 11/12/16 Care time: The patient presented to the Emergency Department on the above date and was hospitalized for further evaluation of their emergent condition. - New Patient This patient is new to me today: No - Critical Care Critical Care patient: No - Discharge Referral Referred to [facility] Med P.C.: No
[2016-11-15] MEDS ORDERED: MEROPENEM 500 MG VIAL (RESTRICTED TO ID) IVPB SCH (14:45)
--- NOTE | 2016-11-15 15:04 | PN ---
Teaching Attending Note Name of Resident: Ros Dias ATTENDING PHYSICIAN STATEMENT I saw and evaluated the patient. I reviewed the resident's note and discussed the case with the resident. I agree with the resident's findings and plan as documented. SUBJECTIVE: unable to obtain hx . no events over night OBJECTIVE: NAD , not responsive , does not open his eyes. Pupils, round L > R , minimally reactive to light . no facial droop , MMM, trach . Lungs: clear anteriorly . Ext : 3+ pitting edema over lega and arms. Abd: soft, NT, ND , NL BS Skin: decub ulcer, stage 4, with slough. scabs on heals and boly processes of feet ASSESSMENT AND PLAN: 76 y/o man with h/o Anoxic brain injury, chronic hypotension , HLP, COPD , chrocni resp failure s/p trach, DM , hypothyroidism and other medical problems , who was brought from a NH due to coffee ground emesis . 1-Septic shock : likely source is the decub ulcer. possible OM . wound cx with ESBL and Pseudomonas . blood cx with 1 bottle of Coagulase neg staph, likely contaminant - Change zosyn to meropenem to cover ESBL and pseudomonas . called pharmacy and adjusted dosing for HD . - Cont vanco pending repeat blood cx - cont pressors - cont stress dose steroids - sx consult for decub wound 2- Upper GI bleed : resolved. ? stress ulcer , VS PUD - cont IV PPI - HB stable now - will eventually need EGD if re-bleeds, also depending on goals of care 3- ESRD: - cont HD . - appreciate renal input 4- sins bradycardia : with episodes of PAF. - not a candidate fro BB or AC at this point 5- Goal of care : will cont to try to reach family. palliative care consult Critical Care Total Critical Care Time (in minutes): 50 Critical Care Statement: The care of this patient involved high complexity decision making to prevent further life threatening deterioration of the patient 's condition and/or to evalute & treat vital organ system(s) failure or risk of failure.
--- NOTE | 2016-11-15 15:29 | PN ---
Progress Note (short form) - Note Progress Note: Surgery Nnote: Asked to evaluate the patient for multiple decubitus ulcers. He was admitted to the hospital from [facility] for possible sepsis. He was noted to have coffee ground emesis and was transfused with PRBC's, platelets, FFP. He is a patient with a history of , ERSD on HD, hypothyroidism, DM, COPD, GERD. Vital Signs Period Temp Pulse Resp BP Sys/Vang Pulse Ox Last 24 Hr 97.1 F-97.7 F 41-80 12-16 93-149/50-73 93-100 PE: GEN: trach in place and on vent Sacrum: with large open wound stage IV, fibrinous material at base. Left upper back: with soft eschar approx 2x3cm over scapula. Left hip with clean wound 2x2cm minimal fibrinous material LE b/l with mutplie dry eschars tover lateral aspecto of foot b/l and heel b/l. also along the lateral aspect of LE. These wounds are all dry with eschar. No purulent drainage/erythema noted. CBC, BMP 11/15/16 08:30 11/15/16 08:30 Microbiology 11/13/16 00:29 Hip - Left Gram Stain - Final 11/13/16 00:29 Hip - Left Wound Culture - Final Escherichia Coli Esbl Collar Starcher Pseudomonas Aeruginosa Morganella Morganii 11/12/16 07:00 Back Gram Stain - Final 11/12/16 08:10 Blood - Peripheral Venous Blood Culture - Preliminary Staphylococcus Coagulase Neg 11/12/16 08:10 Blood - Peripheral Venous Blood Culture - Preliminary NO GROWTH OBTAINED AFTER 72 HOURS, INCUBATION TO CONTINUE FOR 2 DAYS. 11/12/16 07:00 Back Wound Culture - Preliminary Lactose Fermenting Neg Bacilli Pseudomonas Aeruginosa Non Lactose Fermenting Gnb#2 A/P: 76 yo make with trach/vent dependent bed bound Multiple decubitus to lower extremities are all dry/hard eschar. Recommend frequent repositioning/and pt is being supported by devices to alleviate pressure. Ordered santyl to sacral/left hip and left upper back area. No surgical debridment needed, IV abx ordered to cover organsim on wound culture upon admission. D/w Dr. Doyle
[2016-11-15] MEDS: MEROPENEM 500 MG in DEXTROSE 5%-WATER - 100 ML IVPB SCH (16:30)
[2016-11-15] MEDS: COLLAGENASE CLOSTRIDIUM HIST. 30 GRAMS TUBE TP SCH (16:30)
[2016-11-15] MEDS ORDERED: AMINO ACIDS/PROTEIN HYDROLYS 30 ML LIQUID.PKT PO SCH (17:30)
--- NOTE | 2016-11-15 17:32 | PN ---
Progress Note, Physician History of Present Illness: patient stable no new events was dialysed yesterday since dialysis patient is stable he also has rash over the back of his body - Current Medication List Current Medications: Active Medications Amino Acids (Prosource No Carb Liquid Pkt) 30 ml PO BID@0800,1730 [facility] Collagenase (Santyl -) 1 applic TP DAILY STEVEN Last Admin: 11/15/16 16:30 Dose: 1 applic Hydrocortisone Sodium Succinate (Solu-Cortef -) 100 mg IVPB Q8H-IV STEVEN Last Admin: 11/15/16 11:12 Dose: 100 mg Vancomycin HCl (Vancomycin (Pre-Docked)) 250 mls @ 166.667 mls/hr IVPB Q2D@ 0500 STEVEN PRN Reason: Protocol Last Admin: 11/14/16 05:29 Dose: 166.667 mls/hr Norepinephrine Bitartrate 8, (000 mcg/ Dextrose) 500 mls @ 18.75 mls/hr IV TITR STEVEN; 5 MCG/MIN PRN Reason: Protocol Last Titration: 11/14/16 19:50 Dose: 0 mcg/min Pantoprazole Sodium (Protonix 40mg Ivpb (Pre-Docked)) 100 mls @ 200 mls/hr IVPB BID STEVEN Last Admin: 11/15/16 11:12 Dose: 200 mls/hr Dopamine HCl/Dextrose (Dopamine 400 Mg/D5w -) 250 mls @ 14.858 mls/hr IVPB TITR STEVEN; 5 MCG/KG/MIN PRN Reason: Protocol Last Titration: 11/15/16 11:28 Dose: 0 mcg/kg/min Meropenem 500 mg/ Dextrose 100 mls @ 200 mls/hr IVPB Q24H STEVEN Last Admin: 11/15/16 16:30 Dose: 200 mls/hr Ketoconazole (Nizoral 2% Cream -) 1 applic TP DAILY STEVEN Last Admin: 11/15/16 16:29 Dose: 1 applic - Objective Vital Signs: Vital Signs Temperature 97.1 F L 11/15/16 15:00 Pulse Rate 42 L 11/15/16 17:00 Respiratory Rate 12 11/15/16 17:00 Blood Pressure 109/63 11/15/16 17:00 O2 Sat by Pulse Oximetry (%) 100 11/15/16 17:17 Constitutional: Yes: Calm, Other Cardiovascular: Yes: Regular Rate and Rhythm Respiratory: Yes: Regular, CTA Bilaterally Gastrointestinal: Yes: Normal Bowel Sounds, Soft, Other (peg tube in place) Musculoskeletal: Yes: Other Extremities: Yes: Other Integumentary: Yes: Other (multiple pressure ulcers) Wound/Incision: Yes: Draining, Other Neurological: Yes: Other Psychiatric: Yes: Other Labs: CBC, BMP 11/15/16 08:30 11/15/16 08:30 INR, PTT INR 1.69 (0.82-1.09) H 11/12/16 08:10 Assessment/Plan decubitus ulcer multiple pressure ulcer infected peg tube site septic shock lactic acidosis hypotension hypthermia esrd cva gram positive bacteremia rash patient being applied ketaconozole patients culture report noted plan started on meropenam--i completely agree wiht that await for blood cx report to come back if negative will stop vanco as per nephro multiple dsg continue as per icu and continue as per renal cc time 40 time
[2016-11-15] MEDS ORDERED: NOREPINEPHRINE BITARTRATE 8,000 MCG in DEXTROSE 5%-WATER - 492 ML IV SCH (18:57)
[2016-11-15] MEDS ORDERED: DOPAMINE 400 MG/D5W - 250 ML IVPB SCH (18:57)
[2016-11-16] MEDS: HYDROCORTISONE SOD SUCCINATE 100 MG/2 ML VIAL IVPB SCH ×3 (02:34→19:20)
[2016-11-16] MEDS ORDERED: VANCOMYCIN 1 GRAM (PRE-DOCKED) 250 ML IVPB SCH (05:00)
[2016-11-16] MEDS: AMINO ACIDS/PROTEIN HYDROLYS 30 ML LIQUID.PKT PO SCH ×2 (09:00→17:47)
[2016-11-16] MEDS: KETOCONAZOLE 2% CREAM - 60GM TUBE TP SCH (10:00)
--- NOTE | 2016-11-16 10:39 | PN ---
Progress Note, Physician Chief Complaint: Assessment/Plan 76 year old man with a history of hypotension on midodrine, hld, DMII, COPD, ESRD on HD, CVA 2010, tracheostomy with vent dependence, recent long hospital stay at [facility] with septic shock, anoxic encephalopathy, sent to [place], now admitted with possible UGIB and septic shock. Pt noted to have sinus bradycardia on tele during admission with HR as low as 39bpm. Bradycardia-chronic. No high grade block seen on tele. -likely related to sepsis and septic shock -Now with 2 short episodes of self limited PAF -contiue telemetry -AC on hold due to anemia and GI bleed, dropping platelet count -avoid any AV eda blocking medications critically ill with guarded prognosis. - Current Medication List Current Medications: Active Medications Amino Acids (Prosource No Carb Liquid Pkt) 30 ml PO BID@0800,1730 STEVEN Collagenase (Santyl -) 1 applic TP DAILY STEVEN Last Admin: 11/15/16 16:30 Dose: 1 applic Hydrocortisone Sodium Succinate (Solu-Cortef -) 100 mg IVPB Q8H-IV STEVEN Last Admin: 11/16/16 02:34 Dose: 100 mg Meropenem 500 mg/ Dextrose 100 mls @ 200 mls/hr IVPB Q24H STEVEN Last Admin: 11/15/16 16:30 Dose: 200 mls/hr Dopamine HCl/Dextrose (Dopamine 400 Mg/D5w -) 250 mls @ 14.858 mls/hr IVPB TITR STEVEN; 5 MCG/KG/MIN PRN Reason: Protocol Last Admin: 11/15/16 19:12 Dose: Not Given Pantoprazole Sodium (Protonix 40mg Ivpb (Pre-Docked)) 100 mls @ 200 mls/hr IVPB BID STEVEN Last Admin: 11/15/16 21:40 Dose: 200 mls/hr Vancomycin HCl (Vancomycin (Pre-Docked)) 250 mls @ 166.667 mls/hr IVPB Q2D@ 0500 STEVEN PRN Reason: Protocol Last Admin: 11/16/16 06:00 Dose: 166.667 mls/hr Ketoconazole (Nizoral 2% Cream -) 1 applic TP DAILY STEVEN - Objective Vital Signs: Vital Signs Temperature 96.4 F L 11/16/16 09:30 Pulse Rate 61 11/16/16 09:32 Respiratory Rate 12 11/16/16 09:32 Blood Pressure 105/43 11/16/16 09:30 O2 Sat by Pulse Oximetry (%) 100 11/16/16 09:32 Constitutional: Yes: No Distress HENT: Yes: Other (trach) Cardiovascular: Yes: Regular Rate and Rhythm Respiratory: Yes: CTA Bilaterally Gastrointestinal: Yes: Soft Edema: No Labs: CBC, BMP 11/15/16 08:30 11/15/16 08:30 INR, PTT INR 1.69 (0.82-1.09) H 11/12/16 08:10 Laboratory Tests 11/15/16 11/15/16 08:30 08:30 WBC 2.0 L D Hgb 7.9 L Plt Count 40 L D Potassium 3.2 L D Creatinine 2.1 H Assessment/Plan Assessment/Plan 76 year old man with a history of hypotension on midodrine, hld, DMII, COPD, ESRD on HD, CVA 2009, tracheostomy with vent dependence, recent long hospital stay at [facility] with septic shock, anoxic encephalopathy, sent to [place], now admitted with possible UGIB and septic shock. Pt noted to have sinus bradycardia on tele during admission with HR as low as 39bpm. Bradycardia-sinus HR ranging 40s-70s, no sign of high degree heart block -likely related to sepsis and septic shock -Now with 2 short episodes of self limited PAF -contiue telemetry -AC on hold due to anemia and possible GI bleed -avoid any AV eda blocking medications
[2016-11-16] MEDS ORDERED: PT OWN MED DRAWER 7, Y5N ONE ×2 (11:09→11:32)
[2016-11-16] MEDS: MEROPENEM 500 MG in DEXTROSE 5%-WATER - 100 ML IVPB SCH ×2 (11:58→17:00)
[2016-11-16] MEDS: PANTOPRAZOLE SODIUM 100 ML IVPB SCH ×2 (12:01→22:04)
[2016-11-16] MEDS ORDERED: EPOETIN ALFA 2,000 UNITS/1 ML VIAL IVPUSH ONE (12:45)
--- NOTE | 2016-11-16 12:50 | PN ---
Progress Note, Physician History of Present Illness: Pt seen and examined at bedside. He is now in the medical ocampo. His blood pressure has been stable. No great change in status. - Current Medication List Current Medications: Active Medications Amino Acids (Prosource No Carb Liquid Pkt) 30 ml PO BID@0800,1730 [facility] Last Admin: 11/16/16 09:00 Dose: Not Given Collagenase (Santyl -) 1 applic TP DAILY STEVEN Last Admin: 11/15/16 16:30 Dose: 1 applic Hydrocortisone Sodium Succinate (Solu-Cortef -) 100 mg IVPB Q8H-IV STEVEN Last Admin: 11/16/16 11:13 Dose: 100 mg Meropenem 500 mg/ Dextrose 100 mls @ 200 mls/hr IVPB Q24H STEVEN Last Admin: 11/15/16 16:30 Dose: 200 mls/hr Dopamine HCl/Dextrose (Dopamine 400 Mg/D5w -) 250 mls @ 14.858 mls/hr IVPB TITR STEVEN; 5 MCG/KG/MIN PRN Reason: Protocol Last Admin: 11/15/16 19:12 Dose: Not Given Pantoprazole Sodium (Protonix 40mg Ivpb (Pre-Docked)) 100 mls @ 200 mls/hr IVPB BID STEVEN Last Admin: 11/16/16 12:01 Dose: 200 mls/hr Piperacillin Sod/Tazobactam Sod (Zosyn 2.25gm Ivpb (Pre-Docked)) 50 mls @ 100 mls/hr IVPB Q8H-IV STEVEN PRN Reason: Protocol Ketoconazole (Nizoral 2% Cream -) 1 applic TP DAILY [facility] - Objective Vital Signs: Vital Signs Temperature 97.3 F L 11/16/16 12:31 Pulse Rate 50 L 11/16/16 12:31 Respiratory Rate 12 11/16/16 12:31 Blood Pressure 115/49 11/16/16 12:31 O2 Sat by Pulse Oximetry (%) 100 11/16/16 09:32 Constitutional: Yes: Calm Neck: Yes: Other (trache) Cardiovascular: Yes: S1, S2 Respiratory: Yes: Mechanically Ventilated Gastrointestinal: Yes: Soft Genitourinary: Yes: Anuria, Incontinence Musculoskeletal: Yes: Muscle Weakness Edema: Yes (anasarva) Integumentary: Yes: Pressure Ulcer Neurological: Yes: Pre-Existing Deficit Labs: CBC, BMP 03/21/17 08:30 11/15/16 08:30 INR, PTT INR 1.69 (0.82-1.09) H 11/12/16 08:10 Problem List - Problems (1) GORDON (acute kidney injury) Code(s): N17.9 - ACUTE KIDNEY FAILURE, UNSPECIFIED (2) Anasarca Code(s): R60.1 - GENERALIZED EDEMA (3) Anemia Code(s): D64.9 - ANEMIA, UNSPECIFIED (4) CHF (congestive heart failure) Code(s): I50.9 - HEART FAILURE, UNSPECIFIED (5) CKD (chronic kidney disease) Code(s): N18.9 - CHRONIC KIDNEY DISEASE, UNSPECIFIED (6) Fluid overload Code(s): E87.70 - FLUID OVERLOAD, UNSPECIFIED (7) History of CVA (cerebrovascular accident) Code(s): Z86.73 - PRSNL HX OF TIA (TIA), AND CEREB INFRC W/O RESID DEFICITS Assessment/Plan Current Medications Generic Name Dose Route Start Last Admin Trade Name Freq PRN Reason Stop Dose Admin Albumin Human 12.5 gm 11/16/16 12:45 Albumin Human 25% - IVPB Q30M STEVEN Amino Acids 30 ml 11/16/16 08:00 11/16/16 09:00 Prosource No Carb Liquid Pkt PO Not Given BID@0800,1730 STEVEN Collagenase 1 applic 11/15/16 15:24 11/15/16 16:30 Santyl - TP 1 applic DAILY STEVEN Administration Epoetin Rigoberto 5,000 units 11/16/16 12:45 Epogen - IVPUSH 11/16/16 12:46 ONCE ONE Hydrocortisone Sodium Succinate 100 mg 11/16/16 02:00 11/16/16 11:13 Solu-Cortef - IVPB 100 mg Q8H-IV STEVEN Administration Meropenem 500 mg/ Dextrose 100 mls @ 200 mls/hr 11/15/16 15:15 11/15/16 16:30 IVPB 200 mls/hr Q24H STEVEN Administration Dopamine HCl/Dextrose 250 mls @ 14.858 mls/hr 11/15/16 18:57 11/15/16 19:12 Dopamine 400 Mg/D5w - IVPB Not Given TITR STEVEN Protocol 5 MCG/KG/MIN Pantoprazole Sodium 100 mls @ 200 mls/hr 11/15/16 22:00 11/16/16 12:01 Protonix 40mg Ivpb (Pre-Docked) IVPB 200 mls/hr BID STEVEN Administration Piperacillin Sod/Tazobactam Sod 50 mls @ 100 mls/hr 11/16/16 12:15 Zosyn 2.25gm Ivpb (Pre-Docked) IVPB Q8H-IV STEVEN Protocol Ketoconazole 1 applic 11/16/16 10:00 Nizoral 2% Cream - TP DAILY [facility] Impression 1. ESRD 2. hypotension 3. chronic respiratory failrue 4. sepsis 5. Anemia 6. GI bleed 7. CVA 8. DM 9. Hypothyroidism 10. pancytopenia Plan - will dialyze pt today - blood pressure has been stable - cont current meds - cont wound care - epogen for anemia - family meeting to discuss GOC - prognosis poor - will follow Dr Mireles
[2016-11-16] MEDS: PIPERACILLIN/TAZOB 2.25 GM 50 ML IVPB SCH ×3 (13:00→18:07)
[2016-11-16] MEDS ORDERED: EPOETIN ALFA 3,000 UNIT, EPOETIN ALFA 2,000 UNIT IVPUSH ONE (14:00)
--- NOTE | 2016-11-16 14:49 | PN ---
Teaching Attending Note Name of Resident: Ros Dias ATTENDING PHYSICIAN STATEMENT I saw and evaluated the patient. I reviewed the resident's note and discussed the case with the resident. I agree with the resident's findings and plan as documented. SUBJECTIVE: unable to obtain hx . events over night significant for hypothermia, was started on bear hugger. OBJECTIVE: NAD , not responsive , opens his eyes spontaneously Pupils, round L > R . no facial droop , MMM, trach/vent . Lungs: clear anteriorly . Ext : 3+ pitting edema over lega and arms. Abd: soft, NT, ND , NL BS Skin: decub ulcer was not examined today ASSESSMENT AND PLAN: 76 y/o man with h/o Anoxic brain injury, chronic hypotension , HLP, COPD , chrocni resp failure s/p trach, DM , hypothyroidism and other medical problems , who was brought from a NH due to coffee ground emesis .He was found to be in septic shock. 1-Septic shock : likely source is the decub ulcer. possible OM . wound cx with ESBL and Pseudomonas . repeat blood cx with no growth to date - will cont Meropenem and add zosyn due to resistance of pseudomonas , pending ID Recs - dc vanco - off dopamine , MAP > 55 this am - patient in hypothermic and requires bear hugger - pt was declined for transfer back to ICU as he has no meaningful recovery . will monitor on floor 2- Upper GI bleed : resolved. ? stress ulcer , VS PUD - cont IV PPI - HB stable 3- ESRD: - cont HD . - appreciate renal input 4- sinus bradycardia : with episodes of PAF. - not a candidate fro BB or AC at this point 5- Goals of care : appreciate Paliative care input. will try to reach family
[2016-11-16 15:02] LABS: EOSINOPHIL 0.1 % (0-4.5)
--- NOTE | 2016-11-16 15:05 | PN ---
Progress Note, Physician History of Present Illness: pulmonary poorly responsive on vent support ac mode, - Current Medication List Current Medications: Active Medications Albumin Human (Albumin Human 25% -) 12.5 gm IVPB Q30M [facility] Stop: 11/16/16 15:16 Amino Acids (Prosource No Carb Liquid Pkt) 30 ml PO BID@0800,1730 [facility] Last Admin: 11/16/16 09:00 Dose: Not Given Collagenase (Santyl -) 1 applic TP DAILY STEVEN Last Admin: 11/15/16 16:30 Dose: 1 applic Hydrocortisone Sodium Succinate (Solu-Cortef -) 100 mg IVPB Q8H-IV STEVEN Last Admin: 11/16/16 11:13 Dose: 100 mg Meropenem 500 mg/ Dextrose 100 mls @ 200 mls/hr IVPB Q24H STEVEN Last Admin: 11/15/16 16:30 Dose: 200 mls/hr Dopamine HCl/Dextrose (Dopamine 400 Mg/D5w -) 250 mls @ 14.858 mls/hr IVPB TITR STEVEN; 5 MCG/KG/MIN PRN Reason: Protocol Last Admin: 11/15/16 19:12 Dose: Not Given Pantoprazole Sodium (Protonix 40mg Ivpb (Pre-Docked)) 100 mls @ 200 mls/hr IVPB BID STEVEN Last Admin: 11/16/16 12:01 Dose: 200 mls/hr Piperacillin Sod/Tazobactam Sod (Zosyn 2.25gm Ivpb (Pre-Docked)) 50 mls @ 100 mls/hr IVPB Q8H-IV STEVEN PRN Reason: Protocol Last Admin: 11/16/16 13:00 Dose: Not Given Ketoconazole (Nizoral 2% Cream -) 1 applic TP DAILY [facility] - Objective Vital Signs: Vital Signs Temperature 97.3 F L 11/16/16 13:40 Pulse Rate 50 L 11/16/16 13:40 Respiratory Rate 15 11/16/16 13:52 Blood Pressure 109/51 11/16/16 13:40 O2 Sat by Pulse Oximetry (%) 100 11/16/16 09:32 Constitutional: Yes: Thin, Other (poorly responsive) Eyes: Yes: WNL HENT: Yes: WNL Neck: Yes: Supple (trach) Cardiovascular: Yes: Regular Rate and Rhythm, S1, S2 Respiratory: Yes: Diminished Gastrointestinal: Yes: Soft Extremities: Yes: WNL Edema: Yes Labs: INR, PTT INR 1.69 (0.82-1.09) H 11/12/16 08:10 Problem List - Problems (1) CHF (congestive heart failure) Code(s): I50.9 - HEART FAILURE, UNSPECIFIED (2) CKD (chronic kidney disease) Code(s): N18.9 - CHRONIC KIDNEY DISEASE, UNSPECIFIED (3) History of CVA (cerebrovascular accident) Code(s): Z86.73 - PRSNL HX OF TIA (TIA), AND CEREB INFRC W/O RESID DEFICITS (4) Hypotension Code(s): I95.9 - HYPOTENSION, UNSPECIFIED Qualifiers: Hypotension type: unspecified hypotension type Qualified Code(s): I95.9 - Hypotension, unspecified (5) Hypothermia Code(s): T68.XXXA - HYPOTHERMIA, INITIAL ENCOUNTER Qualifiers: Encounter type: initial encounter Qualified Code(s): T68.XXXA - Hypothermia, initial encounter (6) Pressure ulcer of back Code(s): L89.109 - PRESSURE ULCER OF UNSP PART OF BACK, UNSPECIFIED STAGE (7) Sacral decubitus ulcer, stage IV Code(s): L89.154 - PRESSURE ULCER OF SACRAL REGION, STAGE 4 (8) Sepsis Code(s): A41.9 - SEPSIS, UNSPECIFIED ORGANISM Qualifiers: Sepsis type: sepsis due to unspecified organism Qualified Code(s): A41.9 - Sepsis, unspecified organism (9) Septic shock Code(s): A41.9 - SEPSIS, UNSPECIFIED ORGANISM R65.21 - SEVERE SEPSIS WITH SEPTIC SHOCK (10) Thrombocytopenia Code(s): D69.6 - THROMBOCYTOPENIA, UNSPECIFIED (11) Respiratory failure Code(s): J96.90 - RESPIRATORY FAILURE, UNSP, UNSP W HYPOXIA OR HYPERCAPNIA Assessment/Plan ASSESSMENT AND PLAN: Sacral Decubitus Ulcer Infection Gram Positive Bacteremia Septic Shock Lactic Acidosis ESRD on HD Chronic Hypotension h/o CVA Anoxic Encephalopathy Anemia - continue antibiotics - HD per renal - monitor H/H - establish peripheral access - poor prognosis for any meaningful recovery - DVT/GI prophylaxis DR UBNN
[2016-11-16 15:16] LABS: ALBUMIN 1.8 g/dl (3.4-5.0); BILIRUBIN,TOTAL 0.7 mg/dL (0.2-1.0); CREATININE 2.4 mg/dL (0.7-1.3); TOT PROT 4.3 g/dl (6.4-8.2)
[2016-11-16 15:26] LABS: CALCIUM 6.9 mg/dL (8.5-10.1)
--- NOTE | 2016-11-16 15:47 | PN ---
Physical Exam: SUBJECTIVE: Patient seen and examined Patient resting in bed, unresponsive but opening eyes more frequently. Was no longer on dopamine. Hypothermic Temp 90.1, improved to 97 on john hugger. BP 93/ 49. HR 45. no change in vebt settings: 12/450/35%/50/5/10. Was sterted on tube feeds and developed watery brown diarrhea. rectal tueb inserted. No further hematemesis. anuric. Plan HD today. OBJECTIVE: Vital Signs Period Temp Pulse Resp BP Sys/Vang Pulse Ox Last 24 Hr 90.1 F-97.3 F 42-61 12-17 93-126/43-64 100-100 GENERAL: unresponsive, opens eyes but doesnt look around. 3+ anasarca HEAD: Normal with no signs of trauma. EYES: sclera anicteric, conjunctiva clear. ENT: moist mucous membranes. NECK: supple. LUNGS: diffuse ronchi, trach, vent. HEART: Regular rate and rhythm, S1, S2 ABDOMEN: Soft, nondistended, globally reduced bowel sounds, Peg in place EXTREMITIES: 1+ pulses, warm, 3+ edema. b/l pressure ulcers on heels with black echar. clean dressing in place Sacrum: unstageable pressure ulcer with black echar, malodorous. NEUROLOGICAL: symmetrical face PSYCH: unable to assess SKIN: Warm, dry Laboratory Results - last 24 hr 11/14/16 11/16/16 14:30 14:00 Sodium 142 Potassium 3.3 L Chloride 104 Carbon Dioxide 23 Anion Gap 15 BUN 59 H Creatinine 2.4 H Creat Clearance w eGFR 26.38 Random Glucose 246 H Calcium 6.9 L* Total Bilirubin 0.7 D AST 25 D ALT 20 D Alkaline Phosphatase 153 H D Total Protein 4.3 L Albumin 1.8 L D Hepatitis C Antibody 0.1 Active Medications Generic Name Dose Route Start Last Admin Trade Name Freq PRN Reason Stop Dose Admin Amino Acids 30 ml 11/16/16 08:00 11/16/16 09:00 Prosource No Carb Liquid Pkt PO Not Given BID@0800,1730 STEVEN Collagenase 1 applic 11/15/16 15:24 11/15/16 16:30 Santyl - TP 1 applic DAILY STEVEN Administration Hydrocortisone Sodium Succinate 100 mg 11/16/16 02:00 11/16/16 11:13 Solu-Cortef - IVPB 100 mg Q8H-IV STEVEN Administration Meropenem 500 mg/ Dextrose 100 mls @ 200 mls/hr 11/15/16 15:15 11/15/16 16:30 IVPB 200 mls/hr Q24H STEVEN Administration Dopamine HCl/Dextrose 250 mls @ 14.858 mls/hr 11/15/16 18:57 11/15/16 19:12 Dopamine 400 Mg/D5w - IVPB Not Given TITR STEVEN Protocol 5 MCG/KG/MIN Pantoprazole Sodium 100 mls @ 200 mls/hr 11/15/16 22:00 11/16/16 12:01 Protonix 40mg Ivpb (Pre-Docked) IVPB 200 mls/hr BID STEVEN Administration Piperacillin Sod/Tazobactam Sod 50 mls @ 100 mls/hr 11/16/16 12:15 11/16/16 13: 00 Zosyn 2.25gm Ivpb (Pre-Docked) IVPB Not Given Q8H-IV STEVEN Protocol Ketoconazole 1 applic 11/16/16 10:00 Nizoral 2% Cream - TP DAILY STEVEN ASSESSMENT/PLAN: This is a 76 yo M with PMH of hypotension, HLD, hypothyroidism, DM, COPD, ESRD, GERD, s/p tracheostomy, s/p gastrostomy presented to ER from [facility] for coffee ground emesis. Septic shock -likley source sacral decubitus ulcer -unstageable ulcer, vascular consult for possible debridement -Gram Positive Bacteremia in 1/2 bottles, likely staph, likely contaminant -Lactic Acidosis -ID consult appreciated, -repeat blood culture negative, stop vanco -wound culture: pseudomonas, ESBL -meropenam and zosyn -strict I and O (anuric) -check coags, fibrinogen degradation product Diarrhea -started on tube feeds yesterday -required rectal tube -C diff toxin Hypothermia -temp 90 rectal overnight -john hugger for temp below 95F -d/c john hugger for temp over 98% -spoke with ICU attending, patient doesn't qualify for ICU xfer as long as BP stable. ESRD on HD -patient hypercalcemic today -plan HD today -anuric -nephro consult appreciated Chronic Hypotension -weaned off levophed -weaned off dopamine -if hypotensive again can start dopamine at steady rate of 5 Acute on chronic Anemia -aggravated by GIB -coffee ground emesis resolved -s/p 2 u pRBC, FFP, platelets -hgb stable at 7.9 -monitor h/h -epogen -IV PPI BID Anoxic Encephalopathy -unresponsive but opens eyes-slight improvement -unlikely to have meaningful recovery -grave prognosis -palliative care consult spoke family -deciding code status. FEN no IVF hypercalcemia: HD. Hypokalemia replete after HD. start tube feeds Dispo: 5s Problem List - Problems (1) GORDON (acute kidney injury) Code(s): N17.9 - ACUTE KIDNEY FAILURE, UNSPECIFIED (2) Anasarca Code(s): R60.1 - GENERALIZED EDEMA (3) Anemia Code(s): D64.9 - ANEMIA, UNSPECIFIED (4) CHF (congestive heart failure) Code(s): I50.9 - HEART FAILURE, UNSPECIFIED (5) CKD (chronic kidney disease) Code(s): N18.9 - CHRONIC KIDNEY DISEASE, UNSPECIFIED (6) Elevated INR Code(s): R79.1 - ABNORMAL COAGULATION PROFILE (7) Elevated brain natriuretic peptide (BNP) level Code(s): R79.89 - OTHER SPECIFIED ABNORMAL FINDINGS OF BLOOD CHEMISTRY (8) Fluid overload Code(s): E87.70 - FLUID OVERLOAD, UNSPECIFIED (9) History of CVA (cerebrovascular accident) Code(s): Z86.73 - PRSNL HX OF TIA (TIA), AND CEREB INFRC W/O RESID DEFICITS (10) Hypoalbuminemia Code(s): E88.09 - OTH DISORDERS OF PLASMA-PROTEIN METABOLISM, NEC (11) Hypotension Code(s): I95.9 - HYPOTENSION, UNSPECIFIED Qualifiers: Hypotension type: unspecified hypotension type Qualified Code(s): I95.9 - Hypotension, unspecified (12) Passes no urine Code(s): R34 - ANURIA AND OLIGURIA (13) Pressure ulcer Code(s): L89.90 - PRESSURE ULCER OF UNSPECIFIED SITE, UNSPECIFIED STAGE (14) Pressure ulcer of ankle Code(s): L89.509 - PRESSURE ULCER OF UNSPECIFIED ANKLE, UNSPECIFIED STAGE (15) Pressure ulcer of back Code(s): L89.109 - PRESSURE ULCER OF UNSP PART OF BACK, UNSPECIFIED STAGE (16) Sacral decubitus ulcer, stage IV Code(s): L89.154 - PRESSURE ULCER OF SACRAL REGION, STAGE 4 (17) Sepsis Code(s): A41.9 - SEPSIS, UNSPECIFIED ORGANISM Qualifiers: Sepsis type: sepsis due to unspecified organism Qualified Code(s): A41.9 - Sepsis, unspecified organism (18) Septic shock Code(s): A41.9 - SEPSIS, UNSPECIFIED ORGANISM R65.21 - SEVERE SEPSIS WITH SEPTIC SHOCK (19) Thrombocytopenia Code(s): D69.6 - THROMBOCYTOPENIA, UNSPECIFIED (20) Transaminitis Code(s): R74.0 - NONSPEC ELEV OF LEVELS OF TRANSAMNS & LACTIC ACID DEHYDRGNSE (21) Upper GI bleed Code(s): K92.2 - GASTROINTESTINAL HEMORRHAGE, UNSPECIFIED Visit type - Emergency Visit Emergency Visit: Yes ED Registration Date: 11/12/16 Care time: The patient presented to the Emergency Department on the above date and was hospitalized for further evaluation of their emergent condition. - New Patient This patient is new to me today: No - Critical Care Critical Care patient: No - Discharge Referral Referred to [facility] Med P.C.: No
[2016-11-16 16:05] LABS: BASOPHIL 0.2 % (0-2.0); MCH 30.7 pg (25.7-33.7); MEAN CELL VOLUME 90.3 fl (80-96); MEAN PLT VOLUME 9.6 fl (7.5-11.1); NEUTROPHILS 88.7 % (42.8-82.8); RDW 21.2 % (11.9-15.9); WHITE BLOOD COUNT 2.7 K/mm3 (4.0-10.0)
[2016-11-16 16:10] LABS: INR 1.59 (0.82-1.09)
[2016-11-16 16:11] LABS: PLATELET COUNT 34 K/MM3 (134-434)
[2016-11-16 16:12] LABS: ACTIVATED PTT 36.8 SECONDS (26.9-34.4)
--- NOTE | 2016-11-16 16:20 | PN ---
Progress Note, Physician History of Present Illness: patient has again become hypothermic on warming blanket being dialysed - Current Medication List Current Medications: Active Medications Amino Acids (Prosource No Carb Liquid Pkt) 30 ml PO BID@0800,1730 [facility] Last Admin: 11/16/16 09:00 Dose: Not Given Collagenase (Santyl -) 1 applic TP DAILY [facility] Last Admin: 11/15/16 16:30 Dose: 1 applic Hydrocortisone Sodium Succinate (Solu-Cortef -) 100 mg IVPB Q8H-IV STEVEN Last Admin: 11/16/16 11:13 Dose: 100 mg Meropenem 500 mg/ Dextrose 100 mls @ 200 mls/hr IVPB Q24H STEVEN Last Admin: 11/15/16 16:30 Dose: 200 mls/hr Dopamine HCl/Dextrose (Dopamine 400 Mg/D5w -) 250 mls @ 14.858 mls/hr IVPB TITR STEVEN; 5 MCG/KG/MIN PRN Reason: Protocol Last Admin: 11/15/16 19:12 Dose: Not Given Pantoprazole Sodium (Protonix 40mg Ivpb (Pre-Docked)) 100 mls @ 200 mls/hr IVPB BID [facility] Last Admin: 11/16/16 12:01 Dose: 200 mls/hr Piperacillin Sod/Tazobactam Sod (Zosyn 2.25gm Ivpb (Pre-Docked)) 50 mls @ 100 mls/hr IVPB Q8H-IV STEVEN PRN Reason: Protocol Last Admin: 11/16/16 13:00 Dose: Not Given Potassium Chloride (Potassium Chloride 10 Meq Premix Ivpb -) 100 mls @ 100 mls/ hr IVPB Q60M [facility] Stop: 11/16/16 17:59 Ketoconazole (Nizoral 2% Cream -) 1 applic TP DAILY [facility] - Objective Vital Signs: Vital Signs Temperature 96.4 F L 11/16/16 15:11 Pulse Rate 54 L 11/16/16 15:11 Respiratory Rate 17 11/16/16 15:11 Blood Pressure 104/57 11/16/16 15:11 O2 Sat by Pulse Oximetry (%) 100 11/16/16 09:32 Constitutional: Yes: Other Cardiovascular: Yes: Regular Rate and Rhythm Respiratory: Yes: Mechanically Ventilated, Other (trach) Gastrointestinal: Yes: Normal Bowel Sounds, Soft Musculoskeletal: Yes: Other Extremities: Yes: Other Integumentary: Yes: Pressure Ulcer, Other Wound/Incision: Yes: Other (decubitus ulcer) Neurological: Yes: Alert Labs: CBC, BMP 11/16/16 14:50 11/16/16 14:00 INR, PTT INR 1.59 (0.82-1.09) H 11/16/16 14:50 Fibrinogen 173.0 mg/dL (238-498) L 11/16/16 14:50 Assessment/Plan decubitus ulcer multiple pressure ulcer infected peg tube site septic shock lactic acidosis hypotension hypthermia esrd cva gram positive bacteremia rash patient being applied ketaconozole patients culture report noted pseudomonas resistant to meropenam plan vanco stopped combination of ertapenam and zosyn rest continue current mgmt
[2016-11-16] MEDS: ALBUMIN HUMAN 25% 100 ML VIAL IVPB SCH ×3 (17:43→17:44)
[2016-11-16] MEDS: KCL 10 MEQ IVPB 100 ML IVPB SCH ×2 (18:00→18:45)
[2016-11-16] MEDS ORDERED: POTASSIUM CHLORIDE 40 MEQ/30 ML UNIT DOSE CUP PO ONE (19:15)
[2016-11-16] MEDS: COLLAGENASE CLOSTRIDIUM HIST. 30 GRAMS TUBE TP SCH (19:27)
--- NOTE | 2016-11-16 22:29 | CONSULT ---
Consult - text type - Consultation Consultation Note: 76 y/o M w/PMH of hypotension, HLD, hypothyroidism, DM, COPD, ESRD, GERD, s/p tracheostomy, s/p gastrostomy presented to ER from [facility] for coffee ground emesis. Pt is non-responsive and history is unable to be obtained. Pt had tracheostomy and g-tube placed approximately 1 year ago. 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: Yes: CVA Cardio/Vascular: Yes: Hyperlipdemia Pulmonary: Yes: COPD Renal/: Yes: Renal Failure, Hemodialysis Endocrine: Yes: Diabetes Mellitus, Hypothyroidism - Smoking History Smoking history: Never smoked - Social History Usual [facility] Arrangement: [facility] Home Medications - Allergies Allergies/Adverse Reactions: Allergies Allergy/AdvReac Type Severity Reaction Status Date / Time No Known Allergies Allergy Verified 11/12/16 02:07 - Home Medications Home Medications: Ambulatory Orders Atorvastatin Ca [Lipitor] 80 mg PO HS 11/12/16 Esomeprazole Magnesium 40 mg PO DAILY 11/12/16 Ferrous Sulfate 325 mg PO DAILY 11/12/16 Hydrocortisone 20 mg PO DAILY 11/12/16 Levothyroxine [Synthroid -] 50 mcg PO DAILY 11/12/16 Magnesium Hydroxide [Milk of Magnesia] 400 mg PO DAILY 11/12/16 Midodrine HCl 5 mg PO DAILY 11/12/16 Sevelamer Carbonate [Renvela] 800 mg PO DAILY 11/12/16 Vitamin B Comp W-C [Nephro-Daily -] 1 tablet PO DAILY 11/12/16 Current Medications Generic Name Dose Route Start Last Admin Trade Name Freq PRN Reason Stop Dose Admin Amino Acids 30 ml 11/16/16 08:00 11/16/16 17:47 Prosource No Carb Liquid Pkt PO 30 ml BID@0800,1730 STEVEN Administration Collagenase 1 applic 11/15/16 15:24 11/16/16 19:27 Santyl - TP 1 applic DAILY STEVEN Administration Hydrocortisone Sodium Succinate 100 mg 11/16/16 02:00 11/16/16 19:20 Solu-Cortef - IVPB 100 mg Q8H-IV STEVEN Administration Meropenem 500 mg/ Dextrose 100 mls @ 200 mls/hr 11/15/16 15:15 11/16/16 17:00 IVPB 200 mls/hr Q24H STEVEN Administration Dopamine HCl/Dextrose 250 mls @ 14.858 mls/hr 11/15/16 18:57 11/15/16 19:12 Dopamine 400 Mg/D5w - IVPB Not Given TITR STEVEN Protocol 5 MCG/KG/MIN Pantoprazole Sodium 100 mls @ 200 mls/hr 11/15/16 22:00 11/16/16 22:04 Protonix 40mg Ivpb (Pre-Docked) IVPB 200 mls/hr BID STEVEN Administration Piperacillin Sod/Tazobactam Sod 50 mls @ 100 mls/hr 11/16/16 12:15 11/16/16 18: 07 Zosyn 2.25gm Ivpb (Pre-Docked) IVPB 100 mls/hr Q8H-IV STEVEN Administration Protocol Ketoconazole 1 applic 11/16/16 10:00 11/16/16 10:00 Nizoral 2% Cream - TP 1 applic DAILY STEVEN Administration Physical Exam Vital Signs: Last Vital Signs Temp Pulse Resp BP Pulse Ox 97.8 F 57 L 17 97/43 100 11/16/16 20:15 11/16/16 20:15 11/16/16 21:10 11/16/16 20:15 11/16/16 11:00 Constitutional: Yes: Other (non verbal no opening eyes) Cardiovascular: Yes: Regular Rate and Rhythm Respiratory: Yes: , Rhonchi, Other (trach in place) Gastrointestinal: Yes: Soft, Other (peg in place) Renal/: Yes: Randolph Present, Scrotal Edema, Other (patient has scrotal edema) Integumentary: Yes: Erythema, Pressure Ulcer (multiple), Skin Tear (multiple sites), Other (patient has decubitus ulcer all over the body with multiple other non healing ulce) Assessment/Plan 76 y/o patient with h/o CVA, nonverbal, s/p trach/PEG, ESRD on dialysis, comes in withseptic shock, decubitiii, pus at gtube site on zosyn and meropenem Coagulopathy/thrombocytopenia: Consumption from DIC due to ongoing sepsis versus underlying liver disease versus vit. K deficiency no active bleeding will transfuse FFP for active bleeding transfuse platelets for active bleeding/prior toprocedures or <20,000 transfuse cryoprecipitate for fibrinogen <100 trial of vit. K check factor V/VIII/X anemia of chronic disease due to ongoing sepsis r/o occult bleed/hemolysis transfusing PRBCs for hgb 6.9
[2016-11-17 00:06] LABS: HEP B SURFACE AB Reactive (.)
[2016-11-17] MEDS ORDERED: PT OWN MED DRAWER 7, Y5N ONE (02:07)
[2016-11-17] MEDS: HYDROCORTISONE SOD SUCCINATE 100 MG/2 ML VIAL IVPB SCH ×2 (04:57→22:05)
[2016-11-17] MEDS: PIPERACILLIN/TAZOB 2.25 GM 50 ML IVPB SCH ×3 (04:57→17:16)
--- NOTE | 2016-11-17 06:59 | PN ---
[id number] to be full code. Explained patients poor prognosis and that they will need to talk with social work in regards to hospice placement. Patient is septic with severe anoxic brain injury very poor prognosis. Visit type - Emergency Visit Emergency Visit: Yes ED Registration Date: 11/12/16 Care time: The patient presented to the Emergency Department on the above date and was hospitalized for further evaluation of their emergent condition. - New Patient This patient is new to me today: No - Critical Care Critical Care patient: No
[2016-11-17 09:00] LABS: MCH 30.4 pg (25.7-33.7); MCHC 34.6 g/dl (32.0-35.9); MEAN CELL VOLUME 87.7 fl (80-96); MEAN PLT VOLUME 10.2 fl (7.5-11.1); PLATELET COUNT 29 K/MM3 (134-434); RDW 20.2 % (11.9-15.9); WHITE BLOOD COUNT 3.4 K/mm3 (4.0-10.0)
[2016-11-17 09:20] LABS: FERRITIN 1509.915 ng/ml (16.4-293.9)
[2016-11-17 09:26] LABS: INR 1.64 (0.82-1.09); PROTHROMBIN TIME (PATIENT) 18.2 SEC (9.98-11.88)
[2016-11-17 09:29] LABS: ACTIVATED PTT 35.1 SECONDS (26.9-34.4)
[2016-11-17 09:40] LABS: ALBUMIN 2.1 g/dl (3.4-5.0); BILIRUBIN,TOTAL 0.8 mg/dL (0.2-1.0); CALCIUM 7.3 mg/dL (8.5-10.1); CREATININE 1.9 mg/dL (0.7-1.3); MAGNESIUM 1.7 mg/dL (1.8-2.4); PHOSPHOROUS 2.5 mg/dL (2.5-4.9); TOT PROT 4.9 g/dl (6.4-8.2)
[2016-11-17] MEDS: AMINO ACIDS/PROTEIN HYDROLYS 30 ML LIQUID.PKT PO SCH ×2 (10:17→17:16)
[2016-11-17] MEDS: PHYTONADIONE 10 MG/1 ML AMP SQ SCH (10:17)
[2016-11-17] MEDS ORDERED: CALCIUM CHLORIDE 10% 1 GM/10 ML *VIAL IVPUSH ONE (11:08)
--- NOTE | 2016-11-17 11:26 | HP ---
CHIEF COMPLAINT: PCP: HISTORY OF PRESENT ILLNESS: ER course was notable for: (1) (2) (3) Recent Travel: PAST MEDICAL HISTORY: PAST SURGICAL HISTORY: Social History: Smoking: Alcohol: Drugs: Family History: Allergies No Known Allergies Allergy (Verified 11/12/16 02:07) HOME MEDICATIONS: Home Medications Medication Instructions Recorded Atorvastatin Ca [Lipitor] 80 mg PO HS 11/12/16 Esomeprazole Magnesium 40 mg PO DAILY 11/12/16 Ferrous Sulfate 325 mg PO DAILY 11/12/16 Hydrocortisone 20 mg PO DAILY 11/12/16 Levothyroxine [Synthroid -] 50 mcg PO DAILY 11/12/16 Magnesium Hydroxide [Milk of 400 mg PO DAILY 11/12/16 Magnesia] Midodrine HCl 5 mg PO DAILY 11/12/16 Sevelamer Carbonate [Renvela] 800 mg PO DAILY 11/12/16 Vitamin B Comp W-C [Nephro-Daily -] 1 tablet PO DAILY 11/12/16 REVIEW OF SYSTEMS CONSTITUTIONAL: Absent: fever, chills, diaphoresis, generalized weakness, malaise, loss of appetite, weight change HEENT: Absent: rhinorrhea, nasal congestion, throat pain, throat swelling, difficulty swallowing, mouth swelling, ear pain, eye pain, visual changes CARDIOVASCULAR: Absent: chest pain, syncope, palpitations, irregular heart rate, lightheadedness , peripheral edema RESPIRATORY: Absent: cough, shortness of breath, dyspnea with exertion, orthopnea, wheezing, stridor, hemoptysis GASTROINTESTINAL: Absent: abdominal pain, abdominal distension, nausea, vomiting, diarrhea, constipation, melena, hematochezia GENITOURINARY: Absent: dysuria, frequency, urgency, hesitancy, hematuria, flank pain, genital pain MUSCULOSKELETAL: Absent: myalgia, arthralgia, joint swelling, back pain, neck pain SKIN: Absent: rash, itching, pallor HEMATOLOGIC/IMMUNOLOGIC: Absent: easy bleeding, easy bruising, lymphadenopathy, frequent infections ENDOCRINE: Absent: unexplained weight gain, unexplained weight loss, heat intolerance, cold intolerance NEUROLOGIC: Absent: headache, focal weakness or paresthesias, dizziness, unsteady gait, seizure, mental status changes, bladder or bowel incontinence PSYCHIATRIC: Absent: anxiety, depression, suicidal or homicidal ideation, hallucinations. PHYSICAL EXAMINATION Vital Signs - 24 hr 11/16/16 11/16/16 11/16/16 11:41 12:31 13:40 Temperature 97.3 F L 97.3 F L 97.3 F L Pulse Rate 51 L 50 L 50 L Respiratory 12 12 15 Rate Blood Pressure 106/53 115/49 109/51 O2 Sat by Pulse Oximetry (%) 11/16/16 11/16/16 11/16/16 13:52 13:55 14:00 Temperature 97.4 F L Pulse Rate 58 L 58 L Respiratory 15 14 14 Rate Blood Pressure 128/70 138/72 O2 Sat by Pulse Oximetry (%) 11/16/16 11/16/16 11/16/16 14:30 15:00 15:11 Temperature 96.4 F L Pulse Rate 60 56 L 54 L Respiratory 14 14 17 Rate Blood Pressure 130/60 113/59 104/57 O2 Sat by Pulse Oximetry (%) 11/16/16 11/16/16 11/16/16 15:30 16:00 16:30 Temperature 97.5 F L Pulse Rate 59 L 56 L 55 L Respiratory 14 14 17 Rate Blood Pressure 99/56 110/60 111/64 O2 Sat by Pulse Oximetry (%) 11/16/16 11/16/16 11/16/16 17:00 17:32 18:16 Temperature 97.5 F L 97.4 F L Pulse Rate 54 L 58 L 56 L Respiratory 17 17 12 Rate Blood Pressure 125/64 112/56 125/56 O2 Sat by Pulse Oximetry (%) 11/16/16 11/16/16 11/16/16 18:36 20:15 21:00 Temperature 97.8 F Pulse Rate 57 L Respiratory 14 15 15 Rate Blood Pressure 97/43 O2 Sat by Pulse 100 Oximetry (%) 11/16/16 11/16/16 11/17/16 21:10 22:00 00:55 Temperature 97.2 F L 97 F L Pulse Rate 47 L 52 L Respiratory 17 15 17 Rate Blood Pressure 115/55 130/56 O2 Sat by Pulse Oximetry (%) 11/17/16 11/17/16 11/17/16 01:32 01:39 04:00 Temperature 97.9 F Pulse Rate 53 L Respiratory 16 16 16 Rate Blood Pressure 114/57 O2 Sat by Pulse 100 Oximetry (%) 11/17/16 11/17/16 11/17/16 06:00 06:58 09:22 Temperature 97.5 F L Pulse Rate 56 L Respiratory 16 14 16 Rate Blood Pressure 146/60 O2 Sat by Pulse Oximetry (%) 11/17/16 10:00 Temperature 98.7 F Pulse Rate 58 L Respiratory 18 Rate Blood Pressure 142/62 O2 Sat by Pulse Oximetry (%) GENERAL: Awake, alert, and fully oriented, in no acute distress. HEAD: Normal with no signs of trauma. EYES: Pupils equal, round and reactive to light, extraocular movements intact, sclera anicteric, conjunctiva clear. No lid lag. EARS, NOSE, THROAT: Ears normal, nares patent, oropharynx clear without exudates. Moist mucous membranes. NECK: Normal range of motion, supple without lymphadenopathy, JVD, or masses. LUNGS: Breath sounds equal, clear to auscultation bilaterally. No wheezes, and no crackles. No accessory muscle use. HEART: Regular rate and rhythm, normal S1 and S2 without murmur, rub or gallop. ABDOMEN: Soft, nontender, not distended, normoactive bowel sounds, no guarding, no rebound, no masses. No hepatomegaly or splenomegaly. MUSCULOSKELETAL: Normal range of motion at all joints. No bony deformities or tenderness. No CVA tenderness. UPPER EXTREMITIES: 2+ pulses, warm, well-perfused. No cyanosis. No clubbing. No peripheral edema. LOWER EXTREMITIES: 2+ pulses, warm, well-perfused. No calf tenderness. No peripheral edema. NEUROLOGICAL: Cranial nerves II-XII intact. Normal speech. Normal gait. PSYCHIATRIC: Cooperative. Good eye contact. Appropriate mood and affect. SKIN: Warm, dry, normal turgor, no rashes or lesions noted, normal capillary refill. Laboratory Results - last 24 hr 11/14/16 11/16/16 11/16/16 14:30 14:00 14:50 WBC 2.7 L D RBC 2.24 L Hgb 6.9 L* D Hct 20.2 L MCV 90.3 MCHC 34.0 RDW 21.2 H Plt Count 34 L* MPV 9.6 Neutrophils % 88.7 H Lymphocytes % 6.6 L D Monocytes % 4.4 Eosinophils % 0.1 Basophils % 0.2 INR PTT (Actin FS) Fibrinogen Fibrin Degrad Products D-Dimer Sodium 142 Potassium 3.3 L Chloride 104 Carbon Dioxide 23 Anion Gap 15 BUN 59 H Creatinine 2.4 H Creat Clearance w eGFR 26.38 Random Glucose 246 H Calcium 6.9 L* Phosphorus Magnesium Ferritin Total Bilirubin 0.7 D AST 25 D ALT 20 D Alkaline Phosphatase 153 H D LD Total Total Protein 4.3 L Albumin 1.8 L D Vitamin B12 Stool Occult Blood Hep A IgM Ab Confirm Negative Hepatitis A Ab Total Positive H Hep Bs Antigen Negative Hep Bs Antibody Reactive Hep B Core Total Ab Negative Blood Type Antibody Screen Direct Antiglob Test Crossmatch 11/16/16 11/16/16 11/16/16 14:50 14:50 22:45 WBC RBC Hgb Hct MCV MCHC RDW Plt Count MPV Neutrophils % Lymphocytes % Monocytes % Eosinophils % Basophils % INR 1.59 H PTT (Actin FS) 36.8 H Fibrinogen 173.0 L Fibrin Degrad Products >10 & <40 D-Dimer 1090 H Sodium Potassium Chloride Carbon Dioxide Anion Gap BUN Creatinine Creat Clearance w eGFR Random Glucose Calcium Phosphorus Magnesium Ferritin Total Bilirubin AST ALT Alkaline Phosphatase LD Total Total Protein Albumin Vitamin B12 Stool Occult Blood Hep A IgM Ab Confirm Hepatitis A Ab Total Hep Bs Antigen Hep Bs Antibody Hep B Core Total Ab Blood Type O POSITIVE Antibody Screen Negative Direct Antiglob Test Crossmatch See Detail 11/17/16 11/17/16 11/17/16 06:00 06:00 08:25 WBC 3.4 L RBC 2.82 L D Hgb 8.5 L D Hct 24.7 L D MCV 87.7 MCHC 34.6 RDW 20.2 H Plt Count 29 L* MPV 10.2 Neutrophils % Lymphocytes % Monocytes % Eosinophils % Basophils % INR PTT (Actin FS) Fibrinogen Fibrin Degrad Products D-Dimer Sodium 144 Potassium 3.3 L Chloride 105 Carbon Dioxide 25 Anion Gap 14 BUN 45 H D Creatinine 1.9 H D Creat Clearance w eGFR 34.55 Random Glucose 285 H Calcium 7.3 L Phosphorus 2.5 D Magnesium 1.7 L Ferritin Total Bilirubin 0.8 AST 20 ALT 21 Alkaline Phosphatase 196 H D LD Total 166 Total Protein 4.9 L Albumin 2.1 L Vitamin B12 Stool Occult Blood Negative Hep A IgM Ab Confirm Hepatitis A Ab Total Hep Bs Antigen Hep Bs Antibody Hep B Core Total Ab Blood Type Antibody Screen Direct Antiglob Test Crossmatch 11/17/16 11/17/16 11/17/16 08:25 08:25 08:25 WBC RBC Hgb Hct MCV MCHC RDW Plt Count MPV Neutrophils % Lymphocytes % Monocytes % Eosinophils % Basophils % INR 1.64 H PTT (Actin FS) Fibrinogen Fibrin Degrad Products D-Dimer Sodium Potassium Chloride Carbon Dioxide Anion Gap BUN Creatinine Creat Clearance w eGFR Random Glucose Calcium Phosphorus Magnesium Ferritin 1509.915 H Total Bilirubin AST ALT Alkaline Phosphatase LD Total Total Protein Albumin Vitamin B12 1785 H Stool Occult Blood Hep A IgM Ab Confirm Hepatitis A Ab Total Hep Bs Antigen Hep Bs Antibody Hep B Core Total Ab Blood Type Antibody Screen Direct Antiglob Test Negative Crossmatch 11/17/16 08:25 WBC RBC Hgb Hct MCV MCHC RDW Plt Count MPV Neutrophils % Lymphocytes % Monocytes % Eosinophils % Basophils % INR PTT (Actin FS) 35.1 H Fibrinogen 165.0 L Fibrin Degrad Products >10 & <40 D-Dimer Sodium Potassium Chloride Carbon Dioxide Anion Gap BUN Creatinine Creat Clearance w eGFR Random Glucose Calcium Phosphorus Magnesium Ferritin Total Bilirubin AST ALT Alkaline Phosphatase LD Total Total Protein Albumin Vitamin B12 Stool Occult Blood Hep A IgM Ab Confirm Hepatitis A Ab Total Hep Bs Antigen Hep Bs Antibody Hep B Core Total Ab Blood Type Antibody Screen Direct Antiglob Test Crossmatch ASSESSMENT/PLAN: Problem List - Problem (1) GORDON (acute kidney injury) Code(s): N17.9 - ACUTE KIDNEY FAILURE, UNSPECIFIED (2) Anasarca Code(s): R60.1 - GENERALIZED EDEMA (3) Anemia Code(s): D64.9 - ANEMIA, UNSPECIFIED (4) CHF (congestive heart failure) Code(s): I50.9 - HEART FAILURE, UNSPECIFIED (5) CKD (chronic kidney disease) Code(s): N18.9 - CHRONIC KIDNEY DISEASE, UNSPECIFIED (6) Elevated INR Code(s): R79.1 - ABNORMAL COAGULATION PROFILE (7) Elevated brain natriuretic peptide (BNP) level Code(s): R79.89 - OTHER SPECIFIED ABNORMAL FINDINGS OF BLOOD CHEMISTRY (8) Fluid overload Code(s): E87.70 - FLUID OVERLOAD, UNSPECIFIED (9) History of CVA (cerebrovascular accident) Code(s): Z86.73 - PRSNL HX OF TIA (TIA), AND CEREB INFRC W/O RESID DEFICITS (10) Hypoalbuminemia Code(s): E88.09 - OTH DISORDERS OF PLASMA-PROTEIN METABOLISM, NEC (11) Hypotension Code(s): I95.9 - HYPOTENSION, UNSPECIFIED Qualifiers: Hypotension type: unspecified hypotension type Qualified Code(s): I95.9 - Hypotension, unspecified (12) Passes no urine Code(s): R34 - ANURIA AND OLIGURIA (13) Pressure ulcer Code(s): L89.90 - PRESSURE ULCER OF UNSPECIFIED SITE, UNSPECIFIED STAGE (14) Pressure ulcer of ankle Code(s): L89.509 - PRESSURE ULCER OF UNSPECIFIED ANKLE, UNSPECIFIED STAGE (15) Pressure ulcer of back Code(s): L89.109 - PRESSURE ULCER OF UNSP PART OF BACK, UNSPECIFIED STAGE (16) Sacral decubitus ulcer, stage IV Code(s): L89.154 - PRESSURE ULCER OF SACRAL REGION, STAGE 4 (17) Sepsis Code(s): A41.9 - SEPSIS, UNSPECIFIED ORGANISM Qualifiers: Sepsis type: sepsis due to unspecified organism Qualified Code(s): A41.9 - Sepsis, unspecified organism (18) Septic shock Code(s): A41.9 - SEPSIS, UNSPECIFIED ORGANISM R65.21 - SEVERE SEPSIS WITH SEPTIC SHOCK (19) Thrombocytopenia Code(s): D69.6 - THROMBOCYTOPENIA, UNSPECIFIED (20) Transaminitis Code(s): R74.0 - NONSPEC ELEV OF LEVELS OF TRANSAMNS & LACTIC ACID DEHYDRGNSE (21) Upper GI bleed Code(s): K92.2 - GASTROINTESTINAL HEMORRHAGE, UNSPECIFIED
--- NOTE | 2016-11-17 11:27 | PN ---
Physical Exam: SUBJECTIVE: Patient seen and examined Patient resting in bed, not opeining eyes today. Off pressors BP stable 146/60. Off john hugger temp stable overnight 97.5 HR 56. no change in vent settings: 12 /450/35%/50/5/10. Still has watery brown diarrhea in rectal tube. No bleeding. No further hematemesis. anuric. s/p HD yesterday and transfusion of 1 u pRBC OBJECTIVE: Vital Signs Period Temp Pulse Resp BP Sys/Vang Pulse Ox Last 24 Hr 96.4 F-98.7 F 47-60 12-18 97-146/43-72 100-100 GENERAL: unresponsive, doesnt open eyes. 3+ anasarca HEAD: Normal with no signs of trauma. EYES: sclera anicteric, conjunctiva clear. ENT: moist mucous membranes. NECK: supple. LUNGS: diffuse ronchi, trach, vent. HEART: Regular rate and rhythm, S1, S2 ABDOMEN: Soft, nondistended, globally reduced bowel sounds, Peg in place EXTREMITIES: 1+ pulses, warm, 3+ edema. b/l pressure ulcers on heels with black echar. clean dressing in place Sacrum: unstageable pressure ulcer with black echar, malodorous. NEUROLOGICAL: symmetrical face PSYCH: unable to assess SKIN: Warm, dry Laboratory Results - last 24 hr 11/14/16 11/16/16 11/16/16 14:30 14:00 14:50 WBC 2.7 L D RBC 2.24 L Hgb 6.9 L* D Hct 20.2 L MCV 90.3 MCHC 34.0 RDW 21.2 H Plt Count 34 L* MPV 9.6 Neutrophils % 88.7 H Lymphocytes % 6.6 L D Monocytes % 4.4 Eosinophils % 0.1 Basophils % 0.2 INR PTT (Actin FS) Fibrinogen Fibrin Degrad Products D-Dimer Sodium 142 Potassium 3.3 L Chloride 104 Carbon Dioxide 23 Anion Gap 15 BUN 59 H Creatinine 2.4 H Creat Clearance w eGFR 26.38 Random Glucose 246 H Calcium 6.9 L* Phosphorus Magnesium Ferritin Total Bilirubin 0.7 D AST 25 D ALT 20 D Alkaline Phosphatase 153 H D LD Total Total Protein 4.3 L Albumin 1.8 L D Vitamin B12 Stool Occult Blood Hep A IgM Ab Confirm Negative Hepatitis A Ab Total Positive H Hep Bs Antigen Negative Hep Bs Antibody Reactive Hep B Core Total Ab Negative Blood Type Antibody Screen Direct Antiglob Test Crossmatch 11/16/16 11/16/16 11/16/16 14:50 14:50 22:45 WBC RBC Hgb Hct MCV MCHC RDW Plt Count MPV Neutrophils % Lymphocytes % Monocytes % Eosinophils % Basophils % INR 1.59 H PTT (Actin FS) 36.8 H Fibrinogen 173.0 L Fibrin Degrad Products >10 & <40 D-Dimer 1090 H Sodium Potassium Chloride Carbon Dioxide Anion Gap BUN Creatinine Creat Clearance w eGFR Random Glucose Calcium Phosphorus Magnesium Ferritin Total Bilirubin AST ALT Alkaline Phosphatase LD Total Total Protein Albumin Vitamin B12 Stool Occult Blood Hep A IgM Ab Confirm Hepatitis A Ab Total Hep Bs Antigen Hep Bs Antibody Hep B Core Total Ab Blood Type O POSITIVE Antibody Screen Negative Direct Antiglob Test Crossmatch See Detail 11/17/16 11/17/16 11/17/16 06:00 06:00 08:25 WBC 3.4 L RBC 2.82 L D Hgb 8.5 L D Hct 24.7 L D MCV 87.7 MCHC 34.6 RDW 20.2 H Plt Count 29 L* MPV 10.2 Neutrophils % Lymphocytes % Monocytes % Eosinophils % Basophils % INR PTT (Actin FS) Fibrinogen Fibrin Degrad Products D-Dimer Sodium 144 Potassium 3.3 L Chloride 105 Carbon Dioxide 25 Anion Gap 14 BUN 45 H D Creatinine 1.9 H D Creat Clearance w eGFR 34.55 Random Glucose 285 H Calcium 7.3 L Phosphorus 2.5 D Magnesium 1.7 L Ferritin Total Bilirubin 0.8 AST 20 ALT 21 Alkaline Phosphatase 196 H D LD Total 166 Total Protein 4.9 L Albumin 2.1 L Vitamin B12 Stool Occult Blood Negative Hep A IgM Ab Confirm Hepatitis A Ab Total Hep Bs Antigen Hep Bs Antibody Hep B Core Total Ab Blood Type Antibody Screen Direct Antiglob Test Crossmatch 11/17/16 11/17/16 11/17/16 08:25 08:25 08:25 WBC RBC Hgb Hct MCV MCHC RDW Plt Count MPV Neutrophils % Lymphocytes % Monocytes % Eosinophils % Basophils % INR 1.64 H PTT (Actin FS) Fibrinogen Fibrin Degrad Products D-Dimer Sodium Potassium Chloride Carbon Dioxide Anion Gap BUN Creatinine Creat Clearance w eGFR Random Glucose Calcium Phosphorus Magnesium Ferritin 1509.915 H Total Bilirubin AST ALT Alkaline Phosphatase LD Total Total Protein Albumin Vitamin B12 1785 H Stool Occult Blood Hep A IgM Ab Confirm Hepatitis A Ab Total Hep Bs Antigen Hep Bs Antibody Hep B Core Total Ab Blood Type Antibody Screen Direct Antiglob Test Negative Crossmatch 11/17/16 08:25 WBC RBC Hgb Hct MCV MCHC RDW Plt Count MPV Neutrophils % Lymphocytes % Monocytes % Eosinophils % Basophils % INR PTT (Actin FS) 35.1 H Fibrinogen 165.0 L Fibrin Degrad Products >10 & <40 D-Dimer Sodium Potassium Chloride Carbon Dioxide Anion Gap BUN Creatinine Creat Clearance w eGFR Random Glucose Calcium Phosphorus Magnesium Ferritin Total Bilirubin AST ALT Alkaline Phosphatase LD Total Total Protein Albumin Vitamin B12 Stool Occult Blood Hep A IgM Ab Confirm Hepatitis A Ab Total Hep Bs Antigen Hep Bs Antibody Hep B Core Total Ab Blood Type Antibody Screen Direct Antiglob Test Crossmatch Active Medications Generic Name Dose Route Start Last Admin Trade Name Freq PRN Reason Stop Dose Admin Amino Acids 30 ml 11/16/16 08:00 11/17/16 10:17 Prosource No Carb Liquid Pkt PO 30 ml BID@0800,1730 STEVEN Administration Collagenase 1 applic 11/15/16 15:24 11/16/16 19:27 Santyl - TP 1 applic DAILY STEVEN Administration Hydrocortisone Sodium Succinate 100 mg 11/17/16 22:00 Solu-Cortef - IVPB BID STEVEN Meropenem 500 mg/ Dextrose 100 mls @ 200 mls/hr 11/15/16 15:15 11/16/16 17:00 IVPB 200 mls/hr Q24H STEVEN Administration Pantoprazole Sodium 100 mls @ 200 mls/hr 11/15/16 22:00 11/16/16 22:04 Protonix 40mg Ivpb (Pre-Docked) IVPB 200 mls/hr BID STEVEN Administration Piperacillin Sod/Tazobactam Sod 50 mls @ 100 mls/hr 11/16/16 12:15 11/17/16 10: 18 Zosyn 2.25gm Ivpb (Pre-Docked) IVPB 100 mls/hr Q8H-IV STEVEN Administration Protocol Potassium Chloride 100 mls @ 100 mls/hr 11/17/16 11:50 Potassium Chloride 10 Meq Premix Ivpb - IVPB 11/17/16 12:49 Q60M STEVEN Ketoconazole 1 applic 11/16/16 10:00 11/16/16 10:00 Nizoral 2% Cream - TP 1 applic DAILY STEVEN Administration Magnesium Sulfate 1 gm 11/17/16 11:45 Magnesium Sulfate IVPB 11/17/16 11:46 ONCE ONE Phytonadione 5 mg 11/17/16 10:00 11/17/16 10:17 Aqua Mephyton Injection - SQ 11/19/16 10:01 5 mg DAILY STEVEN Administration ASSESSMENT/PLAN: This is a 76 yo M with PMH of hypotension, HLD, hypothyroidism, DM, COPD, ESRD, GERD, s/p tracheostomy, s/p gastrostomy presented to ER from [facility] for coffee ground emesis. Septic shock -likley source sacral decubitus ulcer -unstageable ulcer, vascular consult for possible debridement -Gram Positive Bacteremia in 1/2 bottles, likely staph, likely contaminant -Lactic Acidosis -ID consult appreciated, -repeat blood culture negative -wound culture: pseudomonas, ESBL -meropenam day 3 and zosyn -strict I and O (anuric) Diarrhea -likley due to abx treatment -required rectal tube -C diff toxin negative Hypothermia -temp 97 rectal overnight off john hugger -john hugger PRN ESRD on HD -s/p HD yesterday -nephro consult appreciated Chronic Hypotension -weaned off levophed -weaned off dopamine -if hypotensive again can start dopamine at steady rate of 5 -hydrocortisone tapered down to 100 bid iv day 1 Acute on chronic Anemia -aggravated by GIB -coffee ground emesis resolved -s/p 1 u pRBC yesterday -hgb stable at 8.5 -monitor h/h -epogen -IV PPI BID DIC -due to sepsis -fibrinogen trending down -trend coags -Heme consult apprecited -no active bleed Anoxic Encephalopathy -unresponsive -unlikely to have meaningful recovery -grave prognosis -palliative care consult spoke with family -Family wishes full code due tor eligious reasons FEN no IVF replete mag tube feeds Dispo: 5s Problem List - Problems (1) GORDON (acute kidney injury) Code(s): N17.9 - ACUTE KIDNEY FAILURE, UNSPECIFIED (2) Anasarca Code(s): R60.1 - GENERALIZED EDEMA (3) Anemia Code(s): D64.9 - ANEMIA, UNSPECIFIED (4) CHF (congestive heart failure) Code(s): I50.9 - HEART FAILURE, UNSPECIFIED (5) CKD (chronic kidney disease) Code(s): N18.9 - CHRONIC KIDNEY DISEASE, UNSPECIFIED (6) Elevated INR Code(s): R79.1 - ABNORMAL COAGULATION PROFILE (7) Elevated brain natriuretic peptide (BNP) level Code(s): R79.89 - OTHER SPECIFIED ABNORMAL FINDINGS OF BLOOD CHEMISTRY (8) Fluid overload Code(s): E87.70 - FLUID OVERLOAD, UNSPECIFIED (9) History of CVA (cerebrovascular accident) Code(s): Z86.73 - PRSNL HX OF TIA (TIA), AND CEREB INFRC W/O RESID DEFICITS (10) Hypoalbuminemia Code(s): E88.09 - OTH DISORDERS OF PLASMA-PROTEIN METABOLISM, NEC (11) Hypotension Code(s): I95.9 - HYPOTENSION, UNSPECIFIED Qualifiers: Hypotension type: unspecified hypotension type Qualified Code(s): I95.9 - Hypotension, unspecified (12) Passes no urine Code(s): R34 - ANURIA AND OLIGURIA (13) Pressure ulcer Code(s): L89.90 - PRESSURE ULCER OF UNSPECIFIED SITE, UNSPECIFIED STAGE (14) Pressure ulcer of ankle Code(s): L89.509 - PRESSURE ULCER OF UNSPECIFIED ANKLE, UNSPECIFIED STAGE (15) Pressure ulcer of back Code(s): L89.109 - PRESSURE ULCER OF UNSP PART OF BACK, UNSPECIFIED STAGE (16) Sacral decubitus ulcer, stage IV Code(s): L89.154 - PRESSURE ULCER OF SACRAL REGION, STAGE 4 (17) Sepsis Code(s): A41.9 - SEPSIS, UNSPECIFIED ORGANISM Qualifiers: Sepsis type: sepsis due to unspecified organism Qualified Code(s): A41.9 - Sepsis, unspecified organism (18) Septic shock Code(s): A41.9 - SEPSIS, UNSPECIFIED ORGANISM R65.21 - SEVERE SEPSIS WITH SEPTIC SHOCK (19) Thrombocytopenia Code(s): D69.6 - THROMBOCYTOPENIA, UNSPECIFIED (20) Transaminitis Code(s): R74.0 - NONSPEC ELEV OF LEVELS OF TRANSAMNS & LACTIC ACID DEHYDRGNSE (21) Upper GI bleed Code(s): K92.2 - GASTROINTESTINAL HEMORRHAGE, UNSPECIFIED Visit type - Emergency Visit Emergency Visit: Yes ED Registration Date: 11/12/16 Care time: The patient presented to the Emergency Department on the above date and was hospitalized for further evaluation of their emergent condition. - New Patient This patient is new to me today: No - Critical Care Critical Care patient: No - Discharge Referral Referred to [facility] No
[2016-11-17] MEDS: COLLAGENASE CLOSTRIDIUM HIST. 30 GRAMS TUBE TP SCH (11:30)
[2016-11-17] MEDS ORDERED: MAGNESIUM SULF 50% (8.12 MEQ/2 ML-1 GM VIAL) IVPB ONE (11:45)
[2016-11-17] MEDS: PANTOPRAZOLE SODIUM 100 ML IVPB SCH ×2 (11:47→22:05)
[2016-11-17] MEDS ORDERED: KCL 10 MEQ IVPB 100 ML IVPB SCH (11:50)
--- NOTE | 2016-11-17 12:12 | PN ---
Progress Note (short form) - Note Progress Note: Poorly responsive on AC mode of vent. No acute events overnight. Intake & Output 11/14/16 11/15/16 11/16/16 11/17/16 23:59 23:59 23:59 23:59 Intake Total 6279 664 9517 1080 Output Total 0 0 15 Balance 2096 667 6862 1080 Weight 174 lb 11.2 oz 175 lb 1.6 oz Last Vital Signs Temp Pulse Resp BP Pulse Ox 98.7 F 58 L 18 142/62 100 11/17/16 10:00 11/17/16 10:00 11/17/16 10:00 11/17/16 10:00 11/17/16 01:39 Active Medications Amino Acids (Prosource No Carb Liquid Pkt) 30 ml PO BID@0800,1730 [facility] Last Admin: 11/17/16 10:17 Dose: 30 ml Collagenase (Santyl -) 1 applic TP DAILY [facility] Last Admin: 11/16/16 19:27 Dose: 1 applic Hydrocortisone Sodium Succinate (Solu-Cortef -) 100 mg IVPB BID [facility] Meropenem 500 mg/ Dextrose 100 mls @ 200 mls/hr IVPB Q24H [facility] Last Admin: 11/16/16 17:00 Dose: 200 mls/hr Pantoprazole Sodium (Protonix 40mg Ivpb (Pre-Docked)) 100 mls @ 200 mls/hr IVPB BID [facility] Last Admin: 11/17/16 11:47 Dose: 200 mls/hr Piperacillin Sod/Tazobactam Sod (Zosyn 2.25gm Ivpb (Pre-Docked)) 50 mls @ 100 mls/hr IVPB Q8H-IV STEVEN PRN Reason: Protocol Last Admin: 11/17/16 10:18 Dose: 100 mls/hr Potassium Chloride (Potassium Chloride 10 Meq Premix Ivpb -) 100 mls @ 100 mls/ hr IVPB Q60M [facility] Stop: 11/17/16 12:49 Ketoconazole (Nizoral 2% Cream -) 1 applic TP DAILY [facility] Last Admin: 11/16/16 10:00 Dose: 1 applic Phytonadione (Aqua Mephyton Injection -) 5 mg SQ DAILY STEVEN Stop: 11/19/16 10:01 Last Admin: 11/17/16 10:17 Dose: 5 mg Constitutional: Yes: Poorly responsive on AC mode of vent Eyes: Yes: (-) Icterus HENT: Yes: WNL Neck: Yes:Trach Cardiovascular: Yes: Regular Rate and Rhythm, S1, S2 Respiratory: Yes: few scattered rhonchi Gastrointestinal: Yes: Soft Extremities: Yes: WNL Edema: Yes Labs: Laboratory Results - last 24 hr 11/12/16 11/14/16 11/16/16 01:41 14:30 14:00 WBC RBC Hgb Hct MCV MCHC RDW Plt Count MPV Neutrophils % Lymphocytes % Monocytes % Eosinophils % Basophils % INR PTT (Actin FS) Fibrinogen Fibrin Degrad Products D-Dimer Sodium 142 Potassium 3.3 L Chloride 104 Carbon Dioxide 23 Anion Gap 15 BUN 59 H Creatinine 2.4 H Creat Clearance w eGFR 26.38 Random Glucose 246 H Calcium 6.9 L* Phosphorus Magnesium Ferritin Total Bilirubin 0.7 D AST 25 D ALT 20 D Alkaline Phosphatase 153 H D LD Total Total Protein 4.3 L Albumin 1.8 L D Vitamin B12 Stool Occult Blood Hep A IgM Ab Confirm Negative Hepatitis A Ab Total Positive H Hep Bs Antigen Negative Hep Bs Antibody Reactive Hep B Core Total Ab Negative Blood Type O POSITIVE Antibody Screen Negative Direct Antiglob Test Crossmatch See Detail 11/16/16 11/16/16 11/16/16 14:50 14:50 14:50 WBC 2.7 L D RBC 2.24 L Hgb 6.9 L* D Hct 20.2 L MCV 90.3 MCHC 34.0 RDW 21.2 H Plt Count 34 L* MPV 9.6 Neutrophils % 88.7 H Lymphocytes % 6.6 L D Monocytes % 4.4 Eosinophils % 0.1 Basophils % 0.2 INR 1.59 H PTT (Actin FS) 36.8 H Fibrinogen 173.0 L Fibrin Degrad Products >10 & <40 D-Dimer 1090 H Sodium Potassium Chloride Carbon Dioxide Anion Gap BUN Creatinine Creat Clearance w eGFR Random Glucose Calcium Phosphorus Magnesium Ferritin Total Bilirubin AST ALT Alkaline Phosphatase LD Total Total Protein Albumin Vitamin B12 Stool Occult Blood Hep A IgM Ab Confirm Hepatitis A Ab Total Hep Bs Antigen Hep Bs Antibody Hep B Core Total Ab Blood Type Antibody Screen Direct Antiglob Test Crossmatch 11/16/16 11/17/16 11/17/16 22:45 06:00 06:00 WBC RBC Hgb Hct MCV MCHC RDW Plt Count MPV Neutrophils % Lymphocytes % Monocytes % Eosinophils % Basophils % INR PTT (Actin FS) Fibrinogen Fibrin Degrad Products D-Dimer Sodium 144 Potassium 3.3 L Chloride 105 Carbon Dioxide 25 Anion Gap 14 BUN 45 H D Creatinine 1.9 H D Creat Clearance w eGFR 34.55 Random Glucose 285 H Calcium 7.3 L Phosphorus 2.5 D Magnesium 1.7 L Ferritin Total Bilirubin 0.8 AST 20 ALT 21 Alkaline Phosphatase 196 H D LD Total 166 Total Protein 4.9 L Albumin 2.1 L Vitamin B12 Stool Occult Blood Negative Hep A IgM Ab Confirm Hepatitis A Ab Total Hep Bs Antigen Hep Bs Antibody Hep B Core Total Ab Blood Type O POSITIVE Antibody Screen Negative Direct Antiglob Test Crossmatch See Detail 11/17/16 11/17/16 11/17/16 08:25 08:25 08:25 WBC 3.4 L RBC 2.82 L D Hgb 8.5 L D Hct 24.7 L D MCV 87.7 MCHC 34.6 RDW 20.2 H Plt Count 29 L* MPV 10.2 Neutrophils % Lymphocytes % Monocytes % Eosinophils % Basophils % INR 1.64 H PTT (Actin FS) Fibrinogen Fibrin Degrad Products D-Dimer Sodium Potassium Chloride Carbon Dioxide Anion Gap BUN Creatinine Creat Clearance w eGFR Random Glucose Calcium Phosphorus Magnesium Ferritin 1509.915 H Total Bilirubin AST ALT Alkaline Phosphatase LD Total Total Protein Albumin Vitamin B12 1785 H Stool Occult Blood Hep A IgM Ab Confirm Hepatitis A Ab Total Hep Bs Antigen Hep Bs Antibody Hep B Core Total Ab Blood Type Antibody Screen Direct Antiglob Test Crossmatch 11/17/16 11/17/16 08:25 08:25 WBC RBC Hgb Hct MCV MCHC RDW Plt Count MPV Neutrophils % Lymphocytes % Monocytes % Eosinophils % Basophils % INR PTT (Actin FS) 35.1 H Fibrinogen 165.0 L Fibrin Degrad Products >10 & <40 D-Dimer Sodium Potassium Chloride Carbon Dioxide Anion Gap BUN Creatinine Creat Clearance w eGFR Random Glucose Calcium Phosphorus Magnesium Ferritin Total Bilirubin AST ALT Alkaline Phosphatase LD Total Total Protein Albumin Vitamin B12 Stool Occult Blood Hep A IgM Ab Confirm Hepatitis A Ab Total Hep Bs Antigen Hep Bs Antibody Hep B Core Total Ab Blood Type Antibody Screen Direct Antiglob Test Negative Crossmatch Problem List - Problems (1) CHF (congestive heart failure) Code(s): I50.9 - HEART FAILURE, UNSPECIFIED (2) CKD (chronic kidney disease) Code(s): N18.9 - CHRONIC KIDNEY DISEASE, UNSPECIFIED (3) History of CVA (cerebrovascular accident) Code(s): Z86.73 - PRSNL HX OF TIA (TIA), AND CEREB INFRC W/O RESID DEFICITS (4) Hypotension Code(s): I95.9 - HYPOTENSION, UNSPECIFIED Qualifiers: Hypotension type: unspecified hypotension type Qualified Code(s): I95.9 - Hypotension, unspecified (5) Hypothermia Code(s): T68.XXXA - HYPOTHERMIA, INITIAL ENCOUNTER Qualifiers: Encounter type: initial encounter Qualified Code(s): T68.XXXA - Hypothermia, initial encounter (6) Pressure ulcer of back Code(s): L89.109 - PRESSURE ULCER OF UNSP PART OF BACK, UNSPECIFIED STAGE (7) Sacral decubitus ulcer, stage IV Code(s): L89.154 - PRESSURE ULCER OF SACRAL REGION, STAGE 4 (8) Sepsis Code(s): A41.9 - SEPSIS, UNSPECIFIED ORGANISM Qualifiers: Sepsis type: sepsis due to unspecified organism Qualified Code(s): A41.9 - Sepsis, unspecified organism (9) Septic shock Code(s): A41.9 - SEPSIS, UNSPECIFIED ORGANISM R65.21 - SEVERE SEPSIS WITH SEPTIC SHOCK (10) Thrombocytopenia Code(s): D69.6 - THROMBOCYTOPENIA, UNSPECIFIED (11) Respiratory failure Code(s): J96.90 - RESPIRATORY FAILURE, UNSP, UNSP W HYPOXIA OR HYPERCAPNIA Assessment/Plan ASSESSMENT AND PLAN: Sacral Decubitus Ulcer Infection Gram Positive Bacteremia Septic Shock Lactic Acidosis ESRD on HD Chronic Hypotension h/o CVA Anoxic Encephalopathy Anemia - ABX - HD per renal - normal transfusion thresholds - poor prognosis for any meaningful recovery - DVT/GI prophylaxis Dr Gallagher
--- NOTE | 2016-11-17 12:14 | PN ---
Teaching Attending Note Name of Resident: Ros Dias ATTENDING PHYSICIAN STATEMENT I saw and evaluated the patient. I reviewed the resident's note and discussed the case with the resident. I agree with the resident's findings and plan as documented. SUBJECTIVE: unable to obtain hx . no events over night OBJECTIVE: NAD , not responsive , opens his eyes spontaneously Pupils, round L > R . no facial droop , MMM, trach/vent. Lungs: clear anteriorly . Ext : 3+ pitting edema over legs and arms. Abd: soft, NT, ND , NL BS Skin: Stage 4 decub ulcer, with persistent slough and white greenish discharge . R posterior hip ulcer with no discharge ASSESSMENT AND PLAN: 76 y/o man with h/o Anoxic brain injury, chronic hypotension , HLP, COPD , chrocni resp failure s/p trach, DM , hypothyroidism and other medical problems , who was brought from a NH due to coffee ground emesis .He was found to be in septic shock. 1-Septic shock : likely source is the decub ulcer. possible OM . shock has resolved , and hypothermia resolved . remain septic with DIC - Cont Meropenem and zosyn - Start steroids taper as blood pressure improved and no need for pressors - can start low dose morphine with dressing changes 2- Upper GI bleed : resolved. ? stress ulcer , VS PUD - Cont IV PPI - HB stable 3- DIC : due to severe sepsis . Fibrinogen is lower today and INR is more elevated - will transfuse blood products as needed - monitor coags 4- ESRD: - cont HD. - appreciate renal input 5- Sinus bradycardia : with episodes of PAF. - not a candidate fro BB or AC at this point 6- Goals of care were d/w son by NIght attending, family wishes to have him as full code . Further discussions to follow when family is available
--- NOTE | 2016-11-17 13:01 | PN ---
Progress Note, Physician History of Present Illness: seen and examined today. minimally responsive. opens eyes spontaneously at times. does not follow commands. - Current Medication List Current Medications: Active Medications Amino Acids (Prosource No Carb Liquid Pkt) 30 ml PO BID@0800,1730 [facility] Last Admin: 11/17/16 10:17 Dose: 30 ml Collagenase (Santyl -) 1 applic TP DAILY [facility] Last Admin: 11/16/16 19:27 Dose: 1 applic Hydrocortisone Sodium Succinate (Solu-Cortef -) 100 mg IVPB BID [facility] Meropenem 500 mg/ Dextrose 100 mls @ 200 mls/hr IVPB Q24H [facility] Last Admin: 11/16/16 17:00 Dose: 200 mls/hr Pantoprazole Sodium (Protonix 40mg Ivpb (Pre-Docked)) 100 mls @ 200 mls/hr IVPB BID [facility] Last Admin: 11/17/16 11:47 Dose: 200 mls/hr Piperacillin Sod/Tazobactam Sod (Zosyn 2.25gm Ivpb (Pre-Docked)) 50 mls @ 100 mls/hr IVPB Q8H-IV STEVEN PRN Reason: Protocol Last Admin: 11/17/16 10:18 Dose: 100 mls/hr Potassium Chloride (Potassium Chloride 10 Meq Premix Ivpb -) 100 mls @ 100 mls/ hr IVPB Q60M [facility] Stop: 11/17/16 12:49 Last Admin: 11/17/16 12:39 Dose: 100 mls/hr Ketoconazole (Nizoral 2% Cream -) 1 applic TP DAILY [facility] Last Admin: 11/16/16 10:00 Dose: 1 applic Phytonadione (Aqua Mephyton Injection -) 5 mg SQ DAILY [facility] Stop: 11/19/16 10:01 Last Admin: 11/17/16 10:17 Dose: 5 mg - Objective Vital Signs: Vital Signs Temperature 98.7 F 11/17/16 10:00 Pulse Rate 58 L 11/17/16 10:00 Respiratory Rate 18 11/17/16 10:00 Blood Pressure 142/62 11/17/16 10:00 O2 Sat by Pulse Oximetry (%) 100 11/17/16 01:39 Constitutional: Yes: No Distress, Calm HENT: Yes: Atraumatic Neck: Yes: Other (tracheostomy) Cardiovascular: Yes: Regular Rate and Rhythm, S1, S2. No: Bradycardia, Tachycardia, Pulse Irregular, Bruit, JVD, Gallop, Murmur, Rub, S3, S4, Varicosities Respiratory: Yes: Regular, Mechanically Ventilated Gastrointestinal: Yes: Normal Bowel Sounds Edema: No Neurological: No: Alert, Oriented Psychiatric: No: Alert, Oriented Labs: CBC, BMP 11/17/16 08:25 11/17/16 06:00 INR, PTT INR 1.64 (0.82-1.09) H 11/17/16 08:25 Fibrinogen 165.0 mg/dL (238-498) L 11/17/16 08:25 - ....Imaging Chest X-ray: Report Reviewed, Image Reviewed EKG: Report Reviewed, Image Reviewed Other: Report Reviewed, Image Reviewed Assessment/Plan 76 year old man with a history of hypotension on midodrine, hld, DMII, COPD, ESRD on HD, CVA 2009, tracheostomy with vent dependence, recent long hospital stay at [facility] with septic shock, anoxic encephalopathy, sent to [place], admitted with possible UGIB and septic shock. Pt noted to have sinus bradycardia on tele and pafib. Bradycardia-sinus bradycardia, no sign of high degree heart block -likely related to sepsis and septic shock -avoid any AV eda blocking medications -no current indication for PPM Pafib-2 short episodes of self limited PAF -now off telemetry -AC on hold due to anemia and possible GI bleed -avoid AV eda blocking agents
--- NOTE | 2016-11-17 13:33 | PN ---
Progress Note, Physician History of Present Illness: Pt seen and examined at bedside. He remains lethargic. - Current Medication List Current Medications: Active Medications Amino Acids (Prosource No Carb Liquid Pkt) 30 ml PO BID@0800,1730 [facility] Last Admin: 11/17/16 10:17 Dose: 30 ml Collagenase (Santyl -) 1 applic TP DAILY [facility] Last Admin: 11/16/16 19:27 Dose: 1 applic Hydrocortisone Sodium Succinate (Solu-Cortef -) 100 mg IVPB BID [facility] Meropenem 500 mg/ Dextrose 100 mls @ 200 mls/hr IVPB Q24H [facility] Last Admin: 11/16/16 17:00 Dose: 200 mls/hr Pantoprazole Sodium (Protonix 40mg Ivpb (Pre-Docked)) 100 mls @ 200 mls/hr IVPB BID [facility] Last Admin: 11/17/16 11:47 Dose: 200 mls/hr Piperacillin Sod/Tazobactam Sod (Zosyn 2.25gm Ivpb (Pre-Docked)) 50 mls @ 100 mls/hr IVPB Q8H-IV [facility] PRN Reason: Protocol Last Admin: 11/17/16 10:18 Dose: 100 mls/hr Ketoconazole (Nizoral 2% Cream -) 1 applic TP DAILY [facility] Last Admin: 11/16/16 10:00 Dose: 1 applic Phytonadione (Aqua Mephyton Injection -) 5 mg SQ DAILY [facility] Stop: 11/19/16 10:01 Last Admin: 11/17/16 10:17 Dose: 5 mg - Objective Vital Signs: Vital Signs Temperature 98.4 F 11/17/16 12:00 Pulse Rate 56 L 11/17/16 12:00 Respiratory Rate 18 11/17/16 12:00 Blood Pressure 132/76 11/17/16 12:00 O2 Sat by Pulse Oximetry (%) 100 11/17/16 01:39 Constitutional: Yes: Calm Eyes: Yes: Conjunctiva Clear Cardiovascular: Yes: S1, S2 Respiratory: Yes: Mechanically Ventilated Gastrointestinal: Yes: Soft Genitourinary: Yes: Randolph Present Musculoskeletal: Yes: Muscle Weakness Edema: Yes Neurological: Yes: Lethargy Labs: CBC, BMP 11/17/16 08:25 11/17/16 06:00 INR, PTT INR 1.64 (0.82-1.09) H 11/17/16 08:25 Fibrinogen 165.0 mg/dL (238-498) L 11/17/16 08:25 Problem List - Problems (1) GORDON (acute kidney injury) Code(s): N17.9 - ACUTE KIDNEY FAILURE, UNSPECIFIED (2) Anasarca Code(s): R60.1 - GENERALIZED EDEMA (3) Anemia Code(s): D64.9 - ANEMIA, UNSPECIFIED (4) CHF (congestive heart failure) Code(s): I50.9 - HEART FAILURE, UNSPECIFIED (5) CKD (chronic kidney disease) Code(s): N18.9 - CHRONIC KIDNEY DISEASE, UNSPECIFIED (6) Fluid overload Code(s): E87.70 - FLUID OVERLOAD, UNSPECIFIED (7) History of CVA (cerebrovascular accident) Code(s): Z86.73 - PRSNL HX OF TIA (TIA), AND CEREB INFRC W/O RESID DEFICITS Assessment/Plan Current Medications Generic Name Dose Route Start Last Admin Trade Name Freq PRN Reason Stop Dose Admin Amino Acids 30 ml 11/16/16 08:00 11/17/16 10:17 Prosource No Carb Liquid Pkt PO 30 ml BID@0800,1730 [facility] Administration Collagenase 1 applic 11/15/16 15:24 11/16/16 19:27 Santyl - TP 1 applic DAILY [facility] Administration Hydrocortisone Sodium Succinate 100 mg 11/17/16 22:00 Solu-Cortef - IVPB BID [facility] Meropenem 500 mg/ Dextrose 100 mls @ 200 mls/hr 11/15/16 15:15 11/16/16 17:00 IVPB 200 mls/hr Q24H [facility]EV[facility] Administration Pantoprazole Sodium 100 mls @ 200 mls/hr 11/15/16 22:00 11/17/16 11:47 Protonix 40mg Ivpb (Pre-Docked) IVPB 200 mls/hr BID [facility] Administration Piperacillin Sod/Tazobactam Sod 50 mls @ 100 mls/hr 11/16/16 12:15 11/17/16 10: 18 Zosyn 2.25gm Ivpb (Pre-Docked) IVPB 100 mls/hr Q8H-IV STEVEN Administration Protocol Ketoconazole 1 applic 11/16/16 10:00 03/22/17 10:00 Nizoral 2% Cream - TP 1 applic DAILY [facility]EVEN Administration Phytonadione 5 mg 11/17/16 10:00 11/17/16 10:17 Aqua Mephyton Injection - SQ 11/19/16 10:01 5 mg DAILY [facility]EVEN Administration Impression 1. ESRD 2. hypotension 3. chronic respiratory failrue 4. sepsis 5. Anemia 6. GI bleed 7. CVA 8. DM 9. Hypothyroidism 10. pancytopenia Plan - bp is improved - HD in am if bp is stable - epogen for anemia - family meeting to discuss GOC - prognosis poor - will follow Dr Mireles
[2016-11-17] MEDS: KETOCONAZOLE 2% CREAM - 60GM TUBE TP SCH (14:23)
[2016-11-17] MEDS: BACITRACIN 30 GM TUBE TOPICAL OINTMENT TP SCH (15:54)
[2016-11-17] MEDS ORDERED: morphine CARPU-JECT 2 MG/1 ML DISP.SYRIN IVPUSH PRN (16:40)
[2016-11-17] MEDS: ERTAPENEM SODIUM 1 GM in SODIUM CHLORIDE 50 ML IVPB SCH (18:21)
--- NOTE | 2016-11-17 23:30 | PN ---
Progress Note (short form) - Note Progress Note: patient seen and examined nonverbal Last Vital Signs Temp Pulse Resp BP Pulse Ox 97.4 F L 52 L 16 118/64 100 11/17/16 18:00 11/17/16 18:00 11/17/16 22:50 11/17/16 18:00 11/17/16 09:00 HEENT: s/p trach Cor: RSR, No murmurs, No gallops Lungs: Clear to P&A Abd: Soft, Normal bowel sounds, No organomegaly Ext:No significant edema Abnormal Lab Results 11/16/16 11/17/16 11/17/16 22:45 06:00 08:25 WBC 3.4 L RBC 2.82 L D Hgb 8.5 L D Hct 24.7 L D RDW 20.2 H Plt Count 29 L* INR PTT (Actin FS) Fibrinogen Potassium 3.3 L BUN 45 H D Creatinine 1.9 H D Random Glucose 285 H Calcium 7.3 L Magnesium 1.7 L Ferritin Alkaline Phosphatase 196 H D Total Protein 4.9 L Albumin 2.1 L Vitamin B12 Crossmatch See Detail 11/17/16 11/17/16 11/17/16 08:25 08:25 08:25 WBC RBC Hgb Hct RDW Plt Count INR 1.64 H PTT (Actin FS) 35.1 H Fibrinogen 165.0 L Potassium BUN Creatinine Random Glucose Calcium Magnesium Ferritin 1509.915 H Alkaline Phosphatase Total Protein Albumin Vitamin B12 1785 H Crossmatch Current Medications Generic Name Dose Route Start Last Admin Trade Name Freq PRN Reason Stop Dose Admin Amino Acids 30 ml 11/16/16 08:00 11/17/16 17:16 Prosource No Carb Liquid Pkt PO 30 ml BID@0800,1730 [facility] Administration Bacitracin 1 applic 11/17/16 15:15 11/17/16 15:54 Bacitracin - TP 1 applic DAILY [facility] Administration Collagenase 1 applic 11/15/16 15:24 11/17/16 11:30 Santyl - TP 1 applic DAILY [facility] Administration Epoetin Rigoberto 5,000 units 11/18/16 13:36 Epogen - IVPUSH 11/18/16 13:37 ONCE ONE Hydrocortisone Sodium Succinate 100 mg 11/17/16 22:00 11/17/16 22:05 Solu-Cortef - IVPB 100 mg BID [facility]EN Administration Pantoprazole Sodium 100 mls @ 200 mls/hr 11/15/16 22:00 11/17/16 22:05 Protonix 40mg Ivpb (Pre-Docked) IVPB 200 mls/hr BID [facility] Administration Piperacillin Sod/Tazobactam Sod 50 mls @ 100 mls/hr 11/16/16 12:15 11/17/16 17: 16 Zosyn 2.25gm Ivpb (Pre-Docked) IVPB 100 mls/hr Q8H-IV [facility] Administration Protocol Ertapenem 1 gm/ Sodium 50 mls @ 100 mls/hr 11/17/16 17:00 11/17/16 18:21 Chloride IVPB 100 mls/hr DAILY [facility] Administration Protocol Ketoconazole 1 applic 11/16/16 10:00 11/17/16 14:23 Nizoral 2% Cream - TP 1 applic DAILY [facility] Administration Morphine Sulfate 2 mg 11/17/16 16:40 Morphine Injection - IVPUSH Q6H PRN PAIN Phytonadione 5 mg 11/17/16 10:00 11/17/16 10:17 Aqua Mephyton Injection - SQ 11/19/16 10:01 5 mg DAILY [facility] Administration a/p 76 y/o patient with h/o CVA, nonverbal, s/p trach/PEG, ESRD on dialysis, comes in withseptic shock, decubitiii, pus at gtube site on zosyn and meropenem Coagulopathy/thrombocytopenia: Consumption from DIC due to ongoing sepsis versus underlying liver disease versus vit. K deficiency no active bleeding will transfuse FFP for active bleeding transfuse platelets for active bleeding/prior toprocedures or <20,000 transfuse cryoprecipitate for fibrinogen <100 trial of vit. K check factor V/VIII/X anemia of chronic disease due to ongoing sepsis r/o occult bleed/hemolysis transfusing PRBCs for hgb 6.9
[2016-11-18] MEDS: PIPERACILLIN/TAZOB 2.25 GM 50 ML IVPB SCH ×3 (01:43→18:10)
[2016-11-18 06:06] LABS: HEMATOCRIT 25.2 % (37.5-51.0); SERUM IRON 110 ug/dL (38-169); TOTAL IRON BINDING CAPACITY < 127 ug/dL (250-450); UIBC < 17 ug/dL (111-343)
[2016-11-18 08:17] LABS: HAPTOGLOBIN 44 mg/dL (34-200)
--- NOTE | 2016-11-18 09:38 | PN ---
Progress Note, Physician History of Present Illness: Pt seen and examined at bedside. No new events. - Current Medication List Current Medications: Active Medications Amino Acids (Prosource No Carb Liquid Pkt) 30 ml PO BID@0800,1730 [facility] Last Admin: 11/17/16 17:16 Dose: 30 ml Bacitracin (Bacitracin -) 1 applic TP DAILY [facility] Last Admin: 11/17/16 15:54 Dose: 1 applic Collagenase (Santyl -) 1 applic TP DAILY [facility] Last Admin: 11/17/16 11:30 Dose: 1 applic Epoetin Rigoberto (Epogen -) 5,000 units IVPUSH ONCE ONE Stop: 11/18/16 13:37 Hydrocortisone Sodium Succinate (Solu-Cortef -) 100 mg IVPB BID [facility] Last Admin: 11/17/16 22:05 Dose: 100 mg Pantoprazole Sodium (Protonix 40mg Ivpb (Pre-Docked)) 100 mls @ 200 mls/hr IVPB BID [facility] Last Admin: 11/17/16 22:05 Dose: 200 mls/hr Piperacillin Sod/Tazobactam Sod (Zosyn 2.25gm Ivpb (Pre-Docked)) 50 mls @ 100 mls/hr IVPB Q8H-IV [facility] PRN Reason: Protocol Last Admin: 11/18/16 01:43 Dose: 100 mls/hr Ertapenem 1 gm/ Sodium (Chloride) 50 mls @ 100 mls/hr IVPB DAILY [facility] PRN Reason: Protocol Last Admin: 11/17/16 18:21 Dose: 100 mls/hr Ketoconazole (Nizoral 2% Cream -) 1 applic TP DAILY [facility] Last Admin: 11/17/16 14:23 Dose: 1 applic Morphine Sulfate (Morphine Injection -) 2 mg IVPUSH Q6H PRN PRN Reason: PAIN Phytonadione (Aqua Mephyton Injection -) 5 mg SQ DAILY [facility] Stop: 11/19/16 10:01 Last Admin: 11/17/16 10:17 Dose: 5 mg - Objective Vital Signs: Vital Signs Temperature 96.0 F L 11/18/16 06:00 Pulse Rate 50 L 11/18/16 06:00 Respiratory Rate 17 11/18/16 06:52 Blood Pressure 148/74 11/18/16 06:00 O2 Sat by Pulse Oximetry (%) 100 11/17/16 09:00 Constitutional: Yes: Calm Neck: Yes: Other (trache) Cardiovascular: Yes: S1, S2 Respiratory: Yes: Mechanically Ventilated Gastrointestinal: Yes: Soft, Other Genitourinary: Yes: Anuria, Incontinence Musculoskeletal: Yes: Muscle Weakness Edema: Yes Integumentary: Yes: Pressure Ulcer Neurological: Yes: Lethargy Labs: CBC, BMP 11/18/16 06:30 11/18/16 06:30 INR, PTT INR 1.64 (0.82-1.09) H 11/17/16 08:25 Fibrinogen 165.0 mg/dL (238-498) L 11/17/16 08:25 Problem List - Problems (1) GORDON (acute kidney injury) Code(s): N17.9 - ACUTE KIDNEY FAILURE, UNSPECIFIED (2) Anasarca Code(s): R60.1 - GENERALIZED EDEMA (3) Anemia Code(s): D64.9 - ANEMIA, UNSPECIFIED (4) CHF (congestive heart failure) Code(s): I50.9 - HEART FAILURE, UNSPECIFIED (5) CKD (chronic kidney disease) Code(s): N18.9 - CHRONIC KIDNEY DISEASE, UNSPECIFIED (6) Fluid overload Code(s): E87.70 - FLUID OVERLOAD, UNSPECIFIED (7) History of CVA (cerebrovascular accident) Code(s): Z86.73 - PRSNL HX OF TIA (TIA), AND CEREB INFRC W/O RESID DEFICITS Assessment/Plan Impression 1. ESRD 2. hypotension 3. chronic respiratory failure 4. sepsis 5. Anemia 6. GI bleed 7. CVA 8. DM 9. Hypothyroidism 10. pancytopenia Plan - HD today, orders written - vent support - blood pressure is improved - epogen for anemia - overall prognosis is poor - family meeting to discuss GOC - will follow Dr Mireles
[2016-11-18 10:32] LABS: MCH 30.1 pg (25.7-33.7); MCHC 33.9 g/dl (32.0-35.9); MEAN CELL VOLUME 88.9 fl (80-96); MEAN PLT VOLUME 10.5 fl (7.5-11.1); RDW 20.1 % (11.9-15.9); WHITE BLOOD COUNT 3.1 K/mm3 (4.0-10.0)
[2016-11-18 10:41] LABS: PLATELET COUNT 25 K/MM3 (134-434)
[2016-11-18 10:45] LABS: INR 1.53 (0.82-1.09)
[2016-11-18] MEDS: AMINO ACIDS/PROTEIN HYDROLYS 30 ML LIQUID.PKT PO SCH ×2 (10:47→18:10)
[2016-11-18] MEDS: PHYTONADIONE 10 MG/1 ML AMP SQ SCH (10:51)
[2016-11-18] MEDS: HYDROCORTISONE SOD SUCCINATE 100 MG/2 ML VIAL IVPB SCH ×2 (10:53→22:48)
[2016-11-18] MEDS ORDERED: EPOETIN ALFA 3,000 UNIT, EPOETIN ALFA 2,000 UNIT IVPUSH ONE (11:00)
[2016-11-18 11:21] LABS: ALBUMIN 1.9 g/dl (3.4-5.0); BILIRUBIN,TOTAL 0.8 mg/dL (0.2-1.0); CALCIUM 7.2 mg/dL (8.5-10.1); CREATININE 2.3 mg/dL (0.7-1.3); TOT PROT 4.7 g/dl (6.4-8.2)
[2016-11-18] MEDS: PANTOPRAZOLE SODIUM 100 ML IVPB SCH ×2 (11:50→22:47)
[2016-11-18] MEDS: BACITRACIN 30 GM TUBE TOPICAL OINTMENT TP SCH (12:16)
--- NOTE | 2016-11-18 13:06 | PN ---
Physical Exam: SUBJECTIVE: Patient seen and examined Patient resting in bed, opeining eyes . Off pressors BP stable 125/67. Off john hugger temp 96.5 HR 45. no change in vent settings: 12/450/35%/50/5/10. Patient more tachypneic 20 RR. 100cc watery light brown diarrhea in rectal tube. No bleeding. No further hematemesis. anuric. HD today OBJECTIVE: Vital Signs Period Temp Pulse Resp BP Sys/Vang Pulse Ox Last 24 Hr 96.0 F-97.7 F 43-60 13-18 107-184/57-96 98-98 GENERAL: unresponsive, open eyes. 3+ anasarca HEAD: Normal with no signs of trauma. EYES: sclera anicteric, conjunctiva clear. ENT: moist mucous membranes. NECK: supple. LUNGS: diffuse ronchi, trach, vent. HEART: Regular rate and rhythm, S1, S2 ABDOMEN: Soft, nondistended, globally reduced bowel sounds, Peg in place, dermatitis around peg EXTREMITIES: 1+ pulses, warm, 3+ edema. b/l pressure ulcers on heels with black echar. clean dressing in place Sacrum: unstageable pressure ulcer with black echar, malodorous. NEUROLOGICAL: symmetrical face PSYCH: unable to assess SKIN: Warm, dry Laboratory Results - last 24 hr 11/17/16 11/17/16 11/18/16 08:25 14:00 06:30 WBC Cancelled Corrected WBC (auto) Cancelled RBC Cancelled Hgb Cancelled Hct 25.2 L Cancelled MCV Cancelled MCHC Cancelled RDW Cancelled Plt Count Cancelled MPV Cancelled Differential Comment Cancelled Platelet Estimate Cancelled Platelet Comment Cancelled RBC Morphology Cancelled Haptoglobin 44 INR Fibrinogen Fibrin Degrad Products Sodium Potassium Chloride Carbon Dioxide Anion Gap BUN Creatinine Creat Clearance w eGFR Random Glucose Calcium Phosphorus Magnesium Iron 110 TIBC < 127 L Iron Saturation > 87 H Total Bilirubin AST ALT Alkaline Phosphatase Total Protein Albumin Folate 1421 Folate Hemolysate 358.1 Stool Occult Blood Negative 11/18/16 11/18/16 11/18/16 06:30 06:30 09:45 WBC 3.1 L Corrected WBC (auto) RBC 2.95 L Hgb 8.9 L Hct 26.3 L MCV 88.9 MCHC 33.9 RDW 20.1 H Plt Count 25 L* MPV 10.5 Differential Comment Platelet Estimate Platelet Comment RBC Morphology Haptoglobin INR Cancelled Fibrinogen Cancelled Fibrin Degrad Products Cancelled Sodium Cancelled Potassium Cancelled Chloride Cancelled Carbon Dioxide Cancelled Anion Gap Cancelled BUN Cancelled Creatinine Cancelled Creat Clearance w eGFR Random Glucose Cancelled Calcium Cancelled Phosphorus Cancelled Magnesium Cancelled Iron TIBC Iron Saturation Total Bilirubin AST ALT Alkaline Phosphatase Total Protein Albumin Folate Folate Hemolysate Stool Occult Blood 11/18/16 11/18/16 11/18/16 09:45 09:45 09:45 WBC Corrected WBC (auto) RBC Hgb Hct MCV MCHC RDW Plt Count MPV Differential Comment Platelet Estimate Platelet Comment RBC Morphology Haptoglobin INR 1.53 H Fibrinogen 195.0 L Fibrin Degrad Products Sodium 146 H Potassium 2.9 L* Chloride 105 Carbon Dioxide 25 Anion Gap 16 BUN 59 H D Creatinine 2.3 H D Creat Clearance w eGFR 27.71 Random Glucose 394 H* D Calcium 7.2 L Phosphorus Magnesium Iron TIBC Iron Saturation Total Bilirubin 0.8 AST 20 ALT 19 Alkaline Phosphatase 268 H D Total Protein 4.7 L Albumin 1.9 L Folate Folate Hemolysate Stool Occult Blood Active Medications Generic Name Dose Route Start Last Admin Trade Name Freq PRN Reason Stop Dose Admin Amino Acids 30 ml 11/16/16 08:00 11/18/16 10:47 Prosource No Carb Liquid Pkt PO 30 ml BID@0800,1730 [facility] Administration Bacitracin 1 applic 11/18/16 12:47 Bacitracin - TP DAILY [facility] Collagenase 1 applic 11/15/16 15:24 11/17/16 11:30 Santyl - TP 1 applic DAILY [facility]EN Administration Hydrocortisone Sodium Succinate 100 mg 11/17/16 22:00 11/18/16 10:53 Solu-Cortef - IVPB 100 mg BID [facility]EVEN Administration Pantoprazole Sodium 100 mls @ 200 mls/hr 11/15/16 22:00 11/18/16 11:50 Protonix 40mg Ivpb (Pre-Docked) IVPB 200 mls/hr BID [facility]EN Administration Piperacillin Sod/Tazobactam Sod 50 mls @ 100 mls/hr 11/16/16 12:15 11/18/16 10: 47 Zosyn 2.25gm Ivpb (Pre-Docked) IVPB 100 mls/hr Q8H-IV STEVEN Administration Protocol Ertapenem 1 gm/ Sodium 50 mls @ 100 mls/hr 11/17/16 17:00 11/17/16 18:21 Chloride IVPB 100 mls/hr DAILY STEVEN Administration Protocol Potassium Chloride 100 mls @ 100 mls/hr 11/18/16 13:00 Potassium Chloride 10 Meq Premix Ivpb - IVPB 11/18/16 14:59 Q60M STEVEN Ketoconazole 1 applic 11/16/16 10:00 11/17/16 14:23 Nizoral 2% Cream - TP 1 applic DAILY [facility]EVEN Administration Morphine Sulfate 2 mg 11/17/16 16:40 Morphine Injection - IVPUSH Q6H PRN PAIN Phytonadione 5 mg 11/17/16 10:00 11/18/16 10:51 Aqua Mephyton Injection - SQ 11/19/16 10:01 5 mg DAILY [facility]EVEN Administration ASSESSMENT/PLAN: This is a 76 yo M with PMH of hypotension, HLD, hypothyroidism, DM, COPD, ESRD, GERD, s/p tracheostomy, s/p gastrostomy presented to ER from [facility] for coffee ground emesis. Septic shock -likley source sacral decubitus ulcer -unstageable ulcer -evaluated by wound care. -no need for debridement at this time, dressing changes. Not healing -Gram Positive Bacteremia in 1/2 bottles, likely staph, likely contaminant. repeat culture negative -Lactic Acidosis -ID consult appreciated -wound culture: pseudomonas, ESBL -ertapenem day 2 and zosyn d 5 -likley osteo, will need PEG before d/c -strict I and O (anuric) dermatitis -on penis, around peg -bacitracin ointment Diarrhea -likley due to abx treatment -rectal tube -C diff toxin negative -repeat c diff toxin Hypothermia -temp 96 rectal overnight off john hugger -john hugger PRN ESRD on HD -HD today -nephro consult appreciated Chronic Hypotension -weaned off levophed -weaned off dopamine -if hypotensive again can start dopamine at steady rate of 5 -hydrocortisone tapered down to 100 bid iv day 2 Acute on chronic Anemia -aggravated by GIB -coffee ground emesis resolved -s/p 1 u pRBC 2 days ago -hgb stable at 8.9 -monitor h/h -epogen -IV PPI BID DIC -due to sepsis -fibrinogen trending up -trend coags -Heme consult apprecited -no active bleed Anoxic Encephalopathy -unresponsive -unlikely to have meaningful recovery -grave prognosis -palliative care consult spoke with family -Family wishes full code due tor eligious reasons FEN no IVF replete K tube feeds Dispo: 5s Problem List - Problems (1) GORDON (acute kidney injury) Code(s): N17.9 - ACUTE KIDNEY FAILURE, UNSPECIFIED (2) Anasarca Code(s): R60.1 - GENERALIZED EDEMA (3) Anemia Code(s): D64.9 - ANEMIA, UNSPECIFIED (4) CHF (congestive heart failure) Code(s): I50.9 - HEART FAILURE, UNSPECIFIED (5) CKD (chronic kidney disease) Code(s): N18.9 - CHRONIC KIDNEY DISEASE, UNSPECIFIED (6) Elevated INR Code(s): R79.1 - ABNORMAL COAGULATION PROFILE (7) Elevated brain natriuretic peptide (BNP) level Code(s): R79.89 - OTHER SPECIFIED ABNORMAL FINDINGS OF BLOOD CHEMISTRY (8) Fluid overload Code(s): E87.70 - FLUID OVERLOAD, UNSPECIFIED (9) History of CVA (cerebrovascular accident) Code(s): Z86.73 - PRSNL HX OF TIA (TIA), AND CEREB INFRC W/O RESID DEFICITS (10) Hypoalbuminemia Code(s): E88.09 - OTH DISORDERS OF PLASMA-PROTEIN METABOLISM, NEC (11) Hypotension Code(s): I95.9 - HYPOTENSION, UNSPECIFIED Qualifiers: Hypotension type: unspecified hypotension type Qualified Code(s): I95.9 - Hypotension, unspecified (12) Passes no urine Code(s): R34 - ANURIA AND OLIGURIA (13) Pressure ulcer Code(s): L89.90 - PRESSURE ULCER OF UNSPECIFIED SITE, UNSPECIFIED STAGE (14) Pressure ulcer of ankle Code(s): L89.509 - PRESSURE ULCER OF UNSPECIFIED ANKLE, UNSPECIFIED STAGE (15) Pressure ulcer of back Code(s): L89.109 - PRESSURE ULCER OF UNSP PART OF BACK, UNSPECIFIED STAGE (16) Sacral decubitus ulcer, stage IV Code(s): L89.154 - PRESSURE ULCER OF SACRAL REGION, STAGE 4 (17) Sepsis Code(s): A41.9 - SEPSIS, UNSPECIFIED ORGANISM Qualifiers: Sepsis type: sepsis due to unspecified organism Qualified Code(s): A41.9 - Sepsis, unspecified organism (18) Septic shock Code(s): A41.9 - SEPSIS, UNSPECIFIED ORGANISM R65.21 - SEVERE SEPSIS WITH SEPTIC SHOCK (19) Thrombocytopenia Code(s): D69.6 - THROMBOCYTOPENIA, UNSPECIFIED (20) Transaminitis Code(s): R74.0 - NONSPEC ELEV OF LEVELS OF TRANSAMNS & LACTIC ACID DEHYDRGNSE (21) Upper GI bleed Code(s): K92.2 - GASTROINTESTINAL HEMORRHAGE, UNSPECIFIED Visit type - Emergency Visit Emergency Visit: Yes ED Registration Date: 11/12/16 Care time: The patient presented to the Emergency Department on the above date and was hospitalized for further evaluation of their emergent condition. - New Patient This patient is new to me today: No - Critical Care Critical Care patient: No - Discharge Referral Referred to [facility] Med P.C.: No
[2016-11-18] MEDS: ERTAPENEM SODIUM 1 GM in SODIUM CHLORIDE 50 ML IVPB SCH (13:15)
[2016-11-18] MEDS ORDERED: EPOETIN ALFA 2,000 UNITS/1 ML VIAL IVPUSH ONE (13:36)
[2016-11-18] MEDS: KCL 10 MEQ IVPB 100 ML IVPB SCH ×2 (14:14→15:32)
--- NOTE | 2016-11-18 14:55 | PN ---
Progress Note, Physician History of Present Illness: pulmonary no change,poorly responsive - Current Medication List Current Medications: Active Medications Amino Acids (Prosource No Carb Liquid Pkt) 30 ml PO BID@0800,1730 [facility] Last Admin: 11/18/16 10:47 Dose: 30 ml Bacitracin (Bacitracin -) 1 applic TP DAILY [facility] Collagenase (Santyl -) 1 applic TP DAILY [facility] Last Admin: 11/17/16 11:30 Dose: 1 applic Hydrocortisone Sodium Succinate (Solu-Cortef -) 100 mg IVPB BID [facility] Last Admin: 11/18/16 10:53 Dose: 100 mg Pantoprazole Sodium (Protonix 40mg Ivpb (Pre-Docked)) 100 mls @ 200 mls/hr IVPB BID [facility] Last Admin: 11/18/16 11:50 Dose: 200 mls/hr Piperacillin Sod/Tazobactam Sod (Zosyn 2.25gm Ivpb (Pre-Docked)) 50 mls @ 100 mls/hr IVPB Q8H-IV [facility]EVEN PRN Reason: Protocol Last Admin: 11/18/16 10:47 Dose: 100 mls/hr Ertapenem 1 gm/ Sodium (Chloride) 50 mls @ 100 mls/hr IVPB DAILY [facility] PRN Reason: Protocol Last Admin: 11/18/16 13:15 Dose: 100 mls/hr Potassium Chloride (Potassium Chloride 10 Meq Premix Ivpb -) 100 mls @ 100 mls/ hr IVPB Q60M [facility] Stop: 11/18/16 15:29 Last Admin: 11/18/16 14:14 Dose: 100 mls/hr Ketoconazole (Nizoral 2% Cream -) 1 applic TP DAILY [facility] Last Admin: 11/17/16 14:23 Dose: 1 applic Morphine Sulfate (Morphine Injection -) 2 mg IVPUSH Q6H PRN PRN Reason: PAIN Phytonadione (Aqua Mephyton Injection -) 5 mg SQ DAILY [facility] Stop: 11/19/16 10:01 Last Admin: 11/18/16 10:51 Dose: 5 mg - Objective Vital Signs: Vital Signs Temperature 97.3 F L 11/18/16 11:00 Pulse Rate 42 L 11/18/16 13:46 Respiratory Rate 17 11/18/16 13:46 Blood Pressure 142/75 11/18/16 13:46 O2 Sat by Pulse Oximetry (%) 98 11/18/16 09:59 Constitutional: Yes: Thin, Other (poorly responsive) Eyes: Yes: WNL HENT: Yes: WNL Neck: Yes: Supple (trach) Cardiovascular: Yes: Regular Rate and Rhythm, S1, S2 Respiratory: Yes: Diminished Gastrointestinal: Yes: Normal Bowel Sounds, Soft Extremities: Yes: Other (multiple foot ulcers) Labs: CBC, BMP 11/18/16 09:45 11/18/16 09:45 INR, PTT INR 1.53 (0.82-1.09) H 11/18/16 09:45 Fibrinogen 195.0 mg/dL (238-498) L 11/18/16 09:45 Problem List - Problems (1) CHF (congestive heart failure) Code(s): I50.9 - HEART FAILURE, UNSPECIFIED (2) CKD (chronic kidney disease) Code(s): N18.9 - CHRONIC KIDNEY DISEASE, UNSPECIFIED (3) History of CVA (cerebrovascular accident) Code(s): Z86.73 - PRSNL HX OF TIA (TIA), AND CEREB INFRC W/O RESID DEFICITS (4) Hypotension Code(s): I95.9 - HYPOTENSION, UNSPECIFIED Qualifiers: Hypotension type: unspecified hypotension type Qualified Code(s): I95.9 - Hypotension, unspecified (5) Hypothermia Code(s): T68.XXXA - HYPOTHERMIA, INITIAL ENCOUNTER Qualifiers: Encounter type: initial encounter Qualified Code(s): T68.XXXA - Hypothermia, initial encounter (6) Pressure ulcer of back Code(s): L89.109 - PRESSURE ULCER OF UNSP PART OF BACK, UNSPECIFIED STAGE (7) Sacral decubitus ulcer, stage IV Code(s): L89.154 - PRESSURE ULCER OF SACRAL REGION, STAGE 4 (8) Sepsis Code(s): A41.9 - SEPSIS, UNSPECIFIED ORGANISM Qualifiers: Sepsis type: sepsis due to unspecified organism Qualified Code(s): A41.9 - Sepsis, unspecified organism (9) Septic shock Code(s): A41.9 - SEPSIS, UNSPECIFIED ORGANISM R65.21 - SEVERE SEPSIS WITH SEPTIC SHOCK (10) Thrombocytopenia Code(s): D69.6 - THROMBOCYTOPENIA, UNSPECIFIED (11) Respiratory failure Code(s): J96.90 - RESPIRATORY FAILURE, UNSP, UNSP W HYPOXIA OR HYPERCAPNIA Assessment/Plan ASSESSMENT AND PLAN: Sacral Decubitus Ulcer Infection Gram Positive Bacteremia Septic Shock Lactic Acidosis ESRD on HD Chronic Hypotension h/o CVA Anoxic Encephalopathy Anemia - continue antibiotics - HD per renal - monitor H/H - establish peripheral access - poor prognosis for any meaningful recovery - DVT/GI prophylaxis DR BUNN
[2016-11-18] MEDS: COLLAGENASE CLOSTRIDIUM HIST. 30 GRAMS TUBE TP SCH (15:33)
[2016-11-18] MEDS: KETOCONAZOLE 2% CREAM - 60GM TUBE TP SCH (15:33)
--- NOTE | 2016-11-18 15:49 | PN ---
Progress Note, Physician History of Present Illness: patient continues to be as stable as he can be no other events temperature fluctuating - Current Medication List Current Medications: Active Medications Amino Acids (Prosource No Carb Liquid Pkt) 30 ml PO BID@0800,1730 [facility] Last Admin: 11/18/16 10:47 Dose: 30 ml Bacitracin (Bacitracin -) 1 applic TP DAILY [facility] Collagenase (Santyl -) 1 applic TP DAILY [facility] Last Admin: 11/18/16 15:33 Dose: 1 applic Hydrocortisone Sodium Succinate (Solu-Cortef -) 100 mg IVPB BID [facility] Last Admin: 11/18/16 10:53 Dose: 100 mg Pantoprazole Sodium (Protonix 40mg Ivpb (Pre-Docked)) 100 mls @ 200 mls/hr IVPB BID [facility] Last Admin: 11/18/16 11:50 Dose: 200 mls/hr Piperacillin Sod/Tazobactam Sod (Zosyn 2.25gm Ivpb (Pre-Docked)) 50 mls @ 100 mls/hr IVPB Q8H-IV [facility] PRN Reason: Protocol Last Admin: 11/18/16 10:47 Dose: 100 mls/hr Ertapenem 1 gm/ Sodium (Chloride) 50 mls @ 100 mls/hr IVPB DAILY [facility] PRN Reason: Protocol Last Admin: 11/18/16 13:15 Dose: 100 mls/hr Ketoconazole (Nizoral 2% Cream -) 1 applic TP DAILY [facility] Last Admin: 11/18/16 15:33 Dose: 1 applic Morphine Sulfate (Morphine Injection -) 2 mg IVPUSH Q6H PRN PRN Reason: PAIN Phytonadione (Aqua Mephyton Injection -) 5 mg SQ DAILY [facility] Stop: 11/19/16 10:01 Last Admin: 11/18/16 10:51 Dose: 5 mg - Objective Vital Signs: Vital Signs Temperature 97.3 F L 11/18/16 11:00 Pulse Rate 42 L 11/18/16 13:46 Respiratory Rate 14 11/18/16 14:10 Blood Pressure 142/75 11/18/16 13:46 O2 Sat by Pulse Oximetry (%) 98 11/18/16 09:59 Constitutional: Yes: No Distress, Other Cardiovascular: Yes: Regular Rate and Rhythm Respiratory: Yes: Mechanically Ventilated, Other (trachestomy minimal secretions ) Gastrointestinal: Yes: Normal Bowel Sounds, Soft, Other (prg tube in place) Musculoskeletal: Yes: Other Extremities: Yes: Other (multiple pressure on the body) Integumentary: Yes: Other Wound/Incision: Yes: Other (drainaing ulcers purulent draining from the wounds sking drying up) Neurological: Yes: Other Psychiatric: Yes: Other Labs: CBC, BMP 11/18/16 09:45 11/18/16 09:45 INR, PTT INR 1.53 (0.82-1.09) H 11/18/16 09:45 Fibrinogen 195.0 mg/dL (238-498) L 11/18/16 09:45 Assessment/Plan decubitus ulcer multiple pressure ulcer infected peg tube site septic shock lactic acidosis hypotension hypthermia esrd cva gram positive bacteremia rash patient being applied ketaconozole plan continue current mgmt continue resp support wound care
--- NOTE | 2016-11-18 15:56 | PN ---
Progress Note, Physician History of Present Illness: patient stable having dirrhoea rectal tube in place no changes in the status patient was dialysed - Current Medication List Current Medications: Active Medications Amino Acids (Prosource No Carb Liquid Pkt) 30 ml PO BID@0800,1730 [facility] Last Admin: 11/18/16 10:47 Dose: 30 ml Bacitracin (Bacitracin -) 1 applic TP DAILY [facility] Collagenase (Santyl -) 1 applic TP DAILY [facility] Last Admin: 11/18/16 15:33 Dose: 1 applic Hydrocortisone Sodium Succinate (Solu-Cortef -) 100 mg IVPB BID [facility] Last Admin: 11/18/16 10:53 Dose: 100 mg Pantoprazole Sodium (Protonix 40mg Ivpb (Pre-Docked)) 100 mls @ 200 mls/hr IVPB BID [facility] Last Admin: 11/18/16 11:50 Dose: 200 mls/hr Piperacillin Sod/Tazobactam Sod (Zosyn 2.25gm Ivpb (Pre-Docked)) 50 mls @ 100 mls/hr IVPB Q8H-IV [facility] PRN Reason: Protocol Last Admin: 11/18/16 10:47 Dose: 100 mls/hr Ertapenem 1 gm/ Sodium (Chloride) 50 mls @ 100 mls/hr IVPB DAILY [facility] PRN Reason: Protocol Last Admin: 11/18/16 13:15 Dose: 100 mls/hr Ketoconazole (Nizoral 2% Cream -) 1 applic TP DAILY [facility] Last Admin: 11/18/16 15:33 Dose: 1 applic Morphine Sulfate (Morphine Injection -) 2 mg IVPUSH Q6H PRN PRN Reason: PAIN Phytonadione (Aqua Mephyton Injection -) 5 mg SQ DAILY [facility] Stop: 11/19/16 10:01 Last Admin: 11/18/16 10:51 Dose: 5 mg - Objective Vital Signs: Vital Signs Temperature 97.3 F L 11/18/16 11:00 Pulse Rate 42 L 11/18/16 13:46 Respiratory Rate 14 11/18/16 14:10 Blood Pressure 142/75 11/18/16 13:46 O2 Sat by Pulse Oximetry (%) 98 11/18/16 09:59 Constitutional: Yes: Other Neck: Yes: Supple, Other (trach in place) Cardiovascular: Yes: Regular Rate and Rhythm Respiratory: Yes: Mechanically Ventilated, Poor Air Entry, Other (trachestomy) Gastrointestinal: Yes: Normal Bowel Sounds, Soft, Other (peg in place) Musculoskeletal: Yes: Other Extremities: Yes: Other (multiple ulcers) Wound/Incision: Yes: Other (drainaing multiple sites decubitus ulcers) Neurological: Yes: Other (opens eyes) Labs: CBC, BMP 11/18/16 09:45 11/18/16 09:45 INR, PTT INR 1.53 (0.82-1.09) H 11/18/16 09:45 Fibrinogen 195.0 mg/dL (238-498) L 11/18/16 09:45 Assessment/Plan decubitus ulcer multiple pressure ulcer infected peg tube site septic shock lactic acidosis hypotension hypthermia esrd cva gram positive bacteremia rash patient being applied ketaconozole plan continue current mgmt continue resp support wound care continue abx will ahve to make a decision
--- NOTE | 2016-11-18 17:59 | PN ---
Teaching Attending Note Name of Resident: Ros Dias ATTENDING PHYSICIAN STATEMENT I saw and evaluated the patient. I reviewed the resident's note and discussed the case with the resident. I agree with the resident's findings and plan as documented. SUBJECTIVE: unable to obtain hx OBJECTIVE: NAD , not responsive Pupils, round L > R . no facial droop , MMM, trach/vent. Lungs: clear anteriorly . Ext : 3+ pitting edema over legs and arms. Abd: soft, NT, ND , NL BS Skin: Stage 4 decub ulcer, was not examined today ASSESSMENT AND PLAN: 76 y/o man with h/o Anoxic brain injury, chronic hypotension , HLP, COPD , chrocni resp failure s/p trach, DM , hypothyroidism and other medical problems , who was brought from a NH due to coffee ground emesis .He was found to be in septic shock. 1-Septic shock : likely source is the decub ulcer. shock has resolved , and hypothermia resolved . remain septic with DIC - Cont Meropenem and zosyn - cont steroid taper . day 2 on 100 BID 2- Upper GI bleed : resolved. ? stress ulcer , VS PUD - Cont IV PPI - HB stable 3- DIC : due to severe sepsis . monitor coags - will transfuse blood products as needed ( fibrinogen < 100 , Hb < 7 , PLt < 20 ) 4- hypernatremia : increase free water with TF. 5- ESRD: - cont HD. 6- replete hypokalemia 7- Sinus bradycardia : with episodes of PAF. - not a candidate for BB or AC at this point 8- dispo : HLOC FULL CODE
[2016-11-18] MEDS ORDERED: PT OWN MED DRAWER 7, Y5N ONE (22:42)
--- NOTE | 2016-11-18 23:00 | PN ---
Progress Note (short form) - Note Progress Note: patient seen and examined nonverbal Last Vital Signs Temp Pulse Resp BP Pulse Ox 96.7 F L 61 16 125/64 98 11/18/16 18:33 11/18/16 18:33 11/18/16 22:05 11/18/16 18:33 11/18/16 09:59 HEENT: s/p trach Cor: RSR, No murmurs, No gallops Lungs: Clear to P&A Abd: Soft, Normal bowel sounds, No organomegaly Ext:No significant edema Abnormal Lab Results 11/17/16 11/18/16 11/18/16 08:25 09:45 09:45 WBC 3.1 L RBC 2.95 L Hgb 8.9 L Hct 25.2 L 26.3 L RDW 20.1 H Plt Count 25 L* INR 1.53 H Fibrinogen Sodium Potassium BUN Creatinine Random Glucose Calcium TIBC < 127 L Iron Saturation > 87 H Alkaline Phosphatase Total Protein Albumin 11/18/16 11/18/16 09:45 09:45 WBC RBC Hgb Hct RDW Plt Count INR Fibrinogen 195.0 L Sodium 146 H Potassium 2.9 L* BUN 59 H D Creatinine 2.3 H D Random Glucose 394 H* D Calcium 7.2 L TIBC Iron Saturation Alkaline Phosphatase 268 H D Total Protein 4.7 L Albumin 1.9 L Home Medication List Medication Instructions Recorded Confirmed Type Atorvastatin Ca [Lipitor] 80 mg PO HS 11/12/16 11/12/16 History Esomeprazole Magnesium 40 mg PO DAILY 11/12/16 11/12/16 History Ferrous Sulfate 325 mg PO DAILY 11/12/16 11/12/16 History Hydrocortisone 20 mg PO DAILY 11/12/16 11/12/16 History Levothyroxine [Synthroid -] 50 mcg PO DAILY 11/12/16 11/12/16 History Magnesium Hydroxide [Milk of 400 mg PO DAILY 11/12/16 11/12/16 History Magnesia] Midodrine HCl 5 mg PO DAILY 11/12/16 11/12/16 History Sevelamer Carbonate [Renvela] 800 mg PO DAILY 11/12/16 11/12/16 History Vitamin B Comp W-C [Nephro-Daily -] 1 tablet PO DAILY 11/12/16 11/12/16 History Active Medications Generic Name Dose Route Start Last Admin Trade Name Freq PRN Reason Stop Dose Admin Amino Acids 30 ml 11/16/16 08:00 11/18/16 18:10 Prosource No Carb Liquid Pkt PO 30 ml BID@0800,1730 [facility] Administration Bacitracin 1 applic 11/18/16 12:47 Bacitracin - TP DAILY [facility] Collagenase 1 applic 11/15/16 15:24 11/18/16 15:33 Santyl - TP 1 applic DAILY [facility] Administration Hydrocortisone Sodium Succinate 100 mg 11/17/16 22:00 11/18/16 22:48 Solu-Cortef - IVPB 100 mg BID [facility] Administration Pantoprazole Sodium 100 mls @ 200 mls/hr 11/15/16 22:00 11/18/16 22:47 Protonix 40mg Ivpb (Pre-Docked) IVPB 200 mls/hr BID [facility] Administration Piperacillin Sod/Tazobactam Sod 50 mls @ 100 mls/hr 11/16/16 12:15 11/18/16 18: 10 Zosyn 2.25gm Ivpb (Pre-Docked) IVPB 100 mls/hr Q8H-IV [facility] Administration Protocol Ertapenem 1 gm/ Sodium 50 mls @ 100 mls/hr 11/17/16 17:00 11/18/16 13:15 Chloride IVPB 100 mls/hr DAILY [facility] Administration Protocol Ketoconazole 1 applic 11/16/16 10:00 11/18/16 15:33 Nizoral 2% Cream - TP 1 applic DAILY [facility] Administration Morphine Sulfate 2 mg 11/17/16 16:40 Morphine Injection - IVPUSH Q6H PRN PAIN Phytonadione 5 mg 11/17/16 10:00 11/18/16 10:51 Aqua Mephyton Injection - SQ 11/19/16 10:01 5 mg DAILY [facility] Administration a/p 76 y/o patient with h/o CVA, nonverbal, s/p trach/PEG, ESRD on dialysis, comes in withseptic shock, decubitiii, pus at gtube site on zosyn and meropenem Coagulopathy/thrombocytopenia: Consumption from DIC due to ongoing sepsis versus underlying liver disease versus vit. K deficiency no active bleeding will transfuse FFP for active bleeding transfuse platelets for active bleeding/prior toprocedures or <20,000 transfuse cryoprecipitate for fibrinogen <100 trial of vit. K anemia of chronic disease due to ongoing sepsis
[2016-11-19] MEDS ORDERED: MAGNESIUM SULF 50% (8.12 MEQ/2 ML-1 GM VIAL) IVPB ONE ×2 (00:11→11:15)
[2016-11-19] MEDS: PIPERACILLIN/TAZOB 2.25 GM 50 ML IVPB SCH ×3 (01:21→17:38)
[2016-11-19] MEDS: KCL 10 MEQ IVPB 100 ML IVPB SCH ×4 (01:23→16:24)
[2016-11-19] MEDS ORDERED: POTASSIUM CHLORIDE 20 MEQ PREMIX IVPB 100 ML IVPB ONE (08:21)
[2016-11-19] MEDS ORDERED: KCL 10 MEQ IVPB 100 ML IVPB SCH (08:30)
[2016-11-19 08:46] LABS: MCH 30.2 pg (25.7-33.7); MCHC 33.4 g/dl (32.0-35.9); MEAN CELL VOLUME 90.4 fl (80-96); MEAN PLT VOLUME 9.6 fl (7.5-11.1); RDW 20.5 % (11.9-15.9); WHITE BLOOD COUNT 3.4 K/mm3 (4.0-10.0)
[2016-11-19 08:49] LABS: PLATELET COUNT 20 K/MM3 (134-434)
[2016-11-19 08:53] LABS: INR 1.46 (0.82-1.09); PROTHROMBIN TIME (PATIENT) 16.2 SEC (9.98-11.88)
[2016-11-19 09:07] LABS: CALCIUM 7.2 mg/dL (8.5-10.1); CREATININE 1.9 mg/dL (0.7-1.3); PHOSPHOROUS 1.9 mg/dL (2.5-4.9)
[2016-11-19] MEDS ORDERED: PT OWN MED DRAWER 7, Y5N ONE ×3 (09:27→20:33)
[2016-11-19] MEDS ORDERED: INSULIN SLIDING SCALE (NOVOLOG) 1 VIAL SQ SCH ×2 (10:00→12:22)
[2016-11-19] MEDS: AMINO ACIDS/PROTEIN HYDROLYS 30 ML LIQUID.PKT PO SCH ×2 (10:12→16:38)
[2016-11-19] MEDS: PHYTONADIONE 10 MG/1 ML AMP SQ SCH (10:14)
[2016-11-19] MEDS: HYDROCORTISONE SOD SUCCINATE 100 MG/2 ML VIAL IVPB SCH ×2 (10:14→22:29)
[2016-11-19] MEDS: BACITRACIN 30 GM TUBE TOPICAL OINTMENT TP SCH (10:15)
[2016-11-19] MEDS: PANTOPRAZOLE SODIUM 100 ML IVPB SCH (10:15)
[2016-11-19] MEDS: ERTAPENEM SODIUM 1 GM in SODIUM CHLORIDE 50 ML IVPB SCH (10:16)
--- NOTE | 2016-11-19 11:11 | PN ---
Progress Note (short form) - Note Progress Note: RENAL Pt seen and examined appears comfortable BP is better Last Vital Signs Temp Pulse Resp BP Pulse Ox 95.2 F L 54 L 12 105/62 98 11/19/16 09:36 11/19/16 09:43 11/19/16 09:43 11/19/16 09:36 11/19/16 09:44 trached lungs bilateral air entry cvs s1s2 rr abd soft ext +edema neuro a+ox3 CBC, BMP 11/19/16 07:00 11/19/16 07:00 Current Medications Generic Name Dose Route Start Last Admin Trade Name Freq PRN Reason Stop Dose Admin Amino Acids 30 ml 11/16/16 08:00 11/19/16 10:12 Prosource No Carb Liquid Pkt PO 30 ml BID@0800,1730 [facility] Administration Bacitracin 1 applic 11/18/16 12:47 11/19/16 10:15 Bacitracin - TP 1 applic DAILY [facility] Administration Collagenase 1 applic 11/15/16 15:24 11/18/16 15:33 Santyl - TP 1 applic DAILY [facility] Administration Hydrocortisone Sodium Succinate 100 mg 11/17/16 22:00 11/19/16 10:14 Solu-Cortef - IVPB 100 mg BID [facility] Administration Pantoprazole Sodium 100 mls @ 200 mls/hr 11/15/16 22:00 11/19/16 10:15 Protonix 40mg Ivpb (Pre-Docked) IVPB 200 mls/hr BID [facility] Administration Piperacillin Sod/Tazobactam Sod 50 mls @ 100 mls/hr 11/16/16 12:15 11/19/16 10: 06 Zosyn 2.25gm Ivpb (Pre-Docked) IVPB 100 mls/hr Q8H-IV [facility] Administration Protocol Ertapenem 1 gm/ Sodium 50 mls @ 100 mls/hr 11/17/16 17:00 11/19/16 10:16 Chloride IVPB 100 mls/hr DAILY [facility] Administration Protocol Insulin Aspart 1 vial 11/19/16 10:00 Novolog Vial Sliding Scale - SQ Q6H [facility] Protocol Ketoconazole 1 applic 11/16/16 10:00 11/18/16 15:33 Nizoral 2% Cream - TP 1 applic DAILY [facility] Administration Magnesium Sulfate 1 gm 11/19/16 11:15 Magnesium Sulfate IVPB 11/19/16 11:16 ONCE ONE Morphine Sulfate 2 mg 11/17/16 16:40 Morphine Injection - IVPUSH Q6H PRN PAIN Potassium Chloride 20 meq 11/20/16 10:00 K-Dur - PO BID [facility] Potassium Phos/Sodium Phos 1 packet 11/19/16 10:45 Phos-Nak Packet - PO BID [facility] ression 1. ESRD 2. hypotension 3. chronic respiratory failure 4. sepsis 5. Anemia 6. GI bleed 7. CVA 8. DM 9. Hypothyroidism 10. pancytopenia Plan - should be on hospice. Not on hemodialysis - family to meet -continue antibiotics and hydrocortisone MV
--- NOTE | 2016-11-19 12:31 | PN ---
Progress Note, Physician History of Present Illness: patient stable rectal tube in place no changes in the status patient was dialysed continues to be hypothermic - Current Medication List Current Medications: Active Medications Amino Acids (Prosource No Carb Liquid Pkt) 30 ml PO BID@0800,1730 [facility] Last Admin: 11/19/16 10:12 Dose: 30 ml Bacitracin (Bacitracin -) 1 applic TP DAILY [facility] Last Admin: 11/19/16 10:15 Dose: 1 applic Collagenase (Santyl -) 1 applic TP DAILY [facility] Last Admin: 11/18/16 15:33 Dose: 1 applic Hydrocortisone Sodium Succinate (Solu-Cortef -) 100 mg IVPB BID [facility] Last Admin: 11/19/16 10:14 Dose: 100 mg Pantoprazole Sodium (Protonix 40mg Ivpb (Pre-Docked)) 100 mls @ 200 mls/hr IVPB BID [facility] Last Admin: 11/19/16 10:15 Dose: 200 mls/hr Piperacillin Sod/Tazobactam Sod (Zosyn 2.25gm Ivpb (Pre-Docked)) 50 mls @ 100 mls/hr IVPB Q8H-IV [facility] PRN Reason: Protocol Last Admin: 11/19/16 10:06 Dose: 100 mls/hr Ertapenem 1 gm/ Sodium (Chloride) 50 mls @ 100 mls/hr IVPB DAILY [facility] PRN Reason: Protocol Last Admin: 11/19/16 10:16 Dose: 100 mls/hr Insulin Aspart (Novolog Vial Sliding Scale -) 1 vial SQ Q6H [facility] PRN Reason: Protocol Ketoconazole (Nizoral 2% Cream -) 1 applic TP DAILY [facility] Last Admin: 11/18/16 15:33 Dose: 1 applic Morphine Sulfate (Morphine Injection -) 2 mg IVPUSH Q6H PRN PRN Reason: PAIN Potassium Chloride (K-Dur -) 20 meq PO BID [facility] Potassium Phos/Sodium Phos (Phos-Nak Packet -) 1 packet PO BID [facility] - Objective Vital Signs: Vital Signs Temperature 95.2 F L 11/19/16 09:36 Pulse Rate 54 L 11/19/16 09:43 Respiratory Rate 12 11/19/16 09:43 Blood Pressure 105/62 11/19/16 09:36 O2 Sat by Pulse Oximetry (%) 98 11/19/16 09:44 Constitutional: Yes: No Distress, Calm Cardiovascular: Yes: Regular Rate and Rhythm Respiratory: Yes: Regular, Poor Air Entry Gastrointestinal: Yes: Normal Bowel Sounds, Soft, Other (peg in place) Musculoskeletal: Yes: Other Extremities: Yes: Other (multiple pressure ulcers) Wound/Incision: Yes: Dressing Dry and Intact, Draining, Other Neurological: Yes: Other (opens eyes) Labs: CBC, BMP 11/19/16 07:00 11/19/16 07:00 INR, PTT INR 1.46 (0.82-1.09) H 11/19/16 07:00 Fibrinogen 200.0 mg/dL (238-498) L 11/19/16 07:00 Assessment/Plan decubitus ulcer multiple pressure ulcer infected peg tube site septic shock lactic acidosis hypotension hypthermia esrd cva gram positive bacteremia rash patient being applied ketaconozole plan continue current mgmt continue resp support wound care continue abx family going to come will have to decide on further course
--- NOTE | 2016-11-19 12:34 | PN ---
Progress Note (short form) - Note Progress Note: Vascular Surgery Pt seen and examined. Bilateral heel eschars. Pt with palpable pulses. Pt with sacrum and hip ulcer. Clean pink with center slough. Cont santyl to all wounds. No pus in wounds. ID on case with antibiotics. turn and position as best as possible. Ervin Doyle DO
[2016-11-19] MEDS: KETOCONAZOLE 2% CREAM - 60GM TUBE TP SCH (13:20)
[2016-11-19] MEDS: COLLAGENASE CLOSTRIDIUM HIST. 30 GRAMS TUBE TP SCH (13:20)
--- NOTE | 2016-11-19 13:20 | PN ---
Physical Exam: SUBJECTIVE: Patient seen and examined Patient resting in bed, opeining eyes to sternal rub. Hypothermic at night 95, now on john hugger 97F. Off pressors BP stable. HR 58. no change in vent settings: 12/450/35%/50/5/10. no longer tachypneic. 50cc watery light brown diarrhea in rectal tube. No bleeding. No further hematemesis. anuric. s/p HD yesterday. OBJECTIVE: Vital Signs Period Temp Pulse Resp BP Sys/Vang Pulse Ox Last 24 Hr 95 F-97.4 F 42-62 12-19 105-142/48-75 98-100 GENERAL: unresponsive, open eyes. 3+ anasarca HEAD: Normal with no signs of trauma. EYES: sclera anicteric, conjunctiva clear. ENT: moist mucous membranes. NECK: supple. LUNGS: diffuse ronchi, trach, vent. HEART: Regular rate and rhythm, S1, S2 ABDOMEN: Soft, nondistended, globally reduced bowel sounds, Peg in place, dermatitis around peg EXTREMITIES: 1+ pulses, warm, 3+ edema. b/l pressure ulcers on heels with black echar. clean dressing in place Sacrum: unstageable pressure ulcer with black echar, malodorous. NEUROLOGICAL: symmetrical face PSYCH: unable to assess SKIN: Warm, dry Laboratory Results - last 24 hr 11/18/16 11/18/16 11/19/16 22:00 22:00 07:00 WBC 3.4 L RBC 2.89 L Hgb 8.7 L Hct 26.2 L MCV 90.4 MCHC 33.4 RDW 20.5 H Plt Count 20 L* MPV 9.6 INR Fibrinogen Sodium Potassium 2.9 L* Chloride Carbon Dioxide Anion Gap BUN Creatinine Random Glucose Calcium Phosphorus Magnesium 1.7 L 11/19/16 11/19/16 07:00 07:00 WBC RBC Hgb Hct MCV MCHC RDW Plt Count MPV INR 1.46 H Fibrinogen 200.0 L Sodium 144 Potassium 3.2 L Chloride 104 Carbon Dioxide 26 Anion Gap 14 BUN 45 H D Creatinine 1.9 H Random Glucose 409 H* Calcium 7.2 L Phosphorus 1.9 L D Magnesium 2.0 Active Medications Generic Name Dose Route Start Last Admin Trade Name Freq PRN Reason Stop Dose Admin Amino Acids 30 ml 11/16/16 08:00 11/19/16 10:12 Prosource No Carb Liquid Pkt PO 30 ml BID@0800,1730 [facility] Administration Bacitracin 1 applic 11/18/16 12:47 11/19/16 10:15 Bacitracin - TP 1 applic DAILY [facility] Administration Collagenase 1 applic 11/15/16 15:24 11/18/16 15:33 Santyl - TP 1 applic DAILY [facility] Administration Hydrocortisone Sodium Succinate 100 mg 11/17/16 22:00 11/19/16 10:14 Solu-Cortef - IVPB 100 mg BID [facility] Administration Pantoprazole Sodium 100 mls @ 200 mls/hr 11/15/16 22:00 11/19/16 10:15 Protonix 40mg Ivpb (Pre-Docked) IVPB 200 mls/hr BID [facility] Administration Piperacillin Sod/Tazobactam Sod 50 mls @ 100 mls/hr 11/16/16 12:15 11/19/16 10: 06 Zosyn 2.25gm Ivpb (Pre-Docked) IVPB 100 mls/hr Q8H-IV [facility] Administration Protocol Ertapenem 1 gm/ Sodium 50 mls @ 100 mls/hr 11/17/16 17:00 11/19/16 10:16 Chloride IVPB 100 mls/hr DAILY [facility] Administration Protocol Insulin Aspart 1 vial 11/19/16 12:37 Novolog Vial Sliding Scale - SQ Q6HPO [facility] Protocol Ketoconazole 1 applic 11/16/16 10:00 11/18/16 15:33 Nizoral 2% Cream - TP 1 applic DAILY [facility] Administration Morphine Sulfate 2 mg 11/17/16 16:40 Morphine Injection - IVPUSH Q6H PRN PAIN Potassium Chloride 20 meq 11/20/16 10:00 K-Dur - PO BID [facility] Potassium Phos/Sodium Phos 1 packet 11/19/16 11:15 Phos-Nak Packet - PO BID [facility] ASSESSMENT/PLAN: This is a 76 yo M with PMH of hypotension, HLD, hypothyroidism, DM, COPD, ESRD, GERD, s/p tracheostomy, s/p gastrostomy presented to ER from [facility] for coffee ground emesis. Septic shock -likley source sacral decubitus ulcer -unstageable ulcer -evaluated by wound care. -no need for debridement at this time, dressing changes. Not healing -Gram Positive Bacteremia in 1/2 bottles, likely staph, likely contaminant. repeat culture negative -Lactic Acidosis -ID consult appreciated -wound culture: pseudomonas, ESBL -ertapenem day 3 and zosyn d 6 -andrea osteo, will need PICC line before d/c -strict I and O (anuric) dermatitis -on penis, around peg -bacitracin ointment Diarrhea -andrea due to abx treatment -rectal tube -C diff toxin negative -repeat c diff toxin Hypothermia -temp 95 rectal overnight off john hugger -john hugger PRN ESRD on HD -HD yesterday -nephro consult appreciated Chronic Hypotension -weaned off levophed -weaned off dopamine -if hypotensive again can start dopamine at steady rate of 5 -hydrocortisone tapered down to 100 bid iv day 2 Acute on chronic Anemia -aggravated by GIB -coffee ground emesis resolved -total 3u pRBC this admission -hgb stable -monitor h/h -epogen -IV PPI BID DIC -due to sepsis -fibrinogen trending up -trend coags -Heme consult apprecited -no active bleed -Platelets 20 today; will watch for now. Unless they drop further tomorrow, would prfer to transfuse platelets with HD on mon . DM -BGM q6 -sliding scale Anoxic Encephalopathy -unresponsive -unlikely to have meaningful recovery -grave prognosis -palliative care consult spoke with family -Family wishes full code due tor eligious reasons FEN no IVF replete K, phos tube feeds. increased free water from 10 to 15 Dispo: 5s Problem List - Problems (1) GORDON (acute kidney injury) Code(s): N17.9 - ACUTE KIDNEY FAILURE, UNSPECIFIED (2) Anasarca Code(s): R60.1 - GENERALIZED EDEMA (3) Anemia Code(s): D64.9 - ANEMIA, UNSPECIFIED (4) CHF (congestive heart failure) Code(s): I50.9 - HEART FAILURE, UNSPECIFIED (5) CKD (chronic kidney disease) Code(s): N18.9 - CHRONIC KIDNEY DISEASE, UNSPECIFIED (6) Elevated INR Code(s): R79.1 - ABNORMAL COAGULATION PROFILE (7) Elevated brain natriuretic peptide (BNP) level Code(s): R79.89 - OTHER SPECIFIED ABNORMAL FINDINGS OF BLOOD CHEMISTRY (8) Fluid overload Code(s): E87.70 - FLUID OVERLOAD, UNSPECIFIED (9) History of CVA (cerebrovascular accident) Code(s): Z86.73 - PRSNL HX OF TIA (TIA), AND CEREB INFRC W/O RESID DEFICITS (10) Hypoalbuminemia Code(s): E88.09 - OTH DISORDERS OF PLASMA-PROTEIN METABOLISM, NEC (11) Hypotension Code(s): I95.9 - HYPOTENSION, UNSPECIFIED Qualifiers: Hypotension type: unspecified hypotension type Qualified Code(s): I95.9 - Hypotension, unspecified (12) Passes no urine Code(s): R34 - ANURIA AND OLIGURIA (13) Pressure ulcer Code(s): L89.90 - PRESSURE ULCER OF UNSPECIFIED SITE, UNSPECIFIED STAGE (14) Pressure ulcer of ankle Code(s): L89.509 - PRESSURE ULCER OF UNSPECIFIED ANKLE, UNSPECIFIED STAGE (15) Pressure ulcer of back Code(s): L89.109 - PRESSURE ULCER OF UNSP PART OF BACK, UNSPECIFIED STAGE (16) Sacral decubitus ulcer, stage IV Code(s): L89.154 - PRESSURE ULCER OF SACRAL REGION, STAGE 4 (17) Sepsis Code(s): A41.9 - SEPSIS, UNSPECIFIED ORGANISM Qualifiers: Sepsis type: sepsis due to unspecified organism Qualified Code(s): A41.9 - Sepsis, unspecified organism (18) Septic shock Code(s): A41.9 - SEPSIS, UNSPECIFIED ORGANISM R65.21 - SEVERE SEPSIS WITH SEPTIC SHOCK (19) Thrombocytopenia Code(s): D69.6 - THROMBOCYTOPENIA, UNSPECIFIED (20) Transaminitis Code(s): R74.0 - NONSPEC ELEV OF LEVELS OF TRANSAMNS & LACTIC ACID DEHYDRGNSE (21) Upper GI bleed Code(s): K92.2 - GASTROINTESTINAL HEMORRHAGE, UNSPECIFIED Visit type - Emergency Visit Emergency Visit: Yes ED Registration Date: 11/12/16 Care time: The patient presented to the Emergency Department on the above date and was hospitalized for further evaluation of their emergent condition. - New Patient This patient is new to me today: No - Critical Care Critical Care patient: No - Discharge Referral Referred to [facility] Med P.C[facility] No
[2016-11-19] MEDS: NAPH,MB-DB/K PH,MBDB POWDER PACKET PO SCH ×2 (13:21→22:28)
--- NOTE | 2016-11-19 14:04 | PN ---
Progress Note, Physician History of Present Illness: pulmonary no change poorly responsive on vent support,ac mode - Current Medication List Current Medications: Active Medications Amino Acids (Prosource No Carb Liquid Pkt) 30 ml PO BID@0800,1730 [facility] Last Admin: 11/19/16 10:12 Dose: 30 ml Bacitracin (Bacitracin -) 1 applic TP DAILY [facility] Last Admin: 11/19/16 10:15 Dose: 1 applic Collagenase (Santyl -) 1 applic TP DAILY [facility] Last Admin: 11/19/16 13:20 Dose: 1 applic Hydrocortisone Sodium Succinate (Solu-Cortef -) 100 mg IVPB BID [facility] Last Admin: 11/19/16 10:14 Dose: 100 mg Pantoprazole Sodium (Protonix 40mg Ivpb (Pre-Docked)) 100 mls @ 200 mls/hr IVPB BID [facility] Last Admin: 11/19/16 10:15 Dose: 200 mls/hr Piperacillin Sod/Tazobactam Sod (Zosyn 2.25gm Ivpb (Pre-Docked)) 50 mls @ 100 mls/hr IVPB Q8H-IV [facility]EVEN PRN Reason: Protocol Last Admin: 11/19/16 10:06 Dose: 100 mls/hr Ertapenem 1 gm/ Sodium (Chloride) 50 mls @ 100 mls/hr IVPB DAILY STEVEN PRN Reason: Protocol Last Admin: 11/19/16 10:16 Dose: 100 mls/hr Potassium Chloride (Potassium Chloride 10 Meq Premix Ivpb -) 100 mls @ 100 mls/ hr IVPB Q1H [facility] Stop: 11/19/16 15:59 Insulin Aspart (Novolog Vial Sliding Scale -) 1 vial SQ Q6HPO STEVEN PRN Reason: Protocol Ketoconazole (Nizoral 2% Cream -) 1 applic TP DAILY [facility] Last Admin: 11/19/16 13:20 Dose: 1 applic Morphine Sulfate (Morphine Injection -) 2 mg IVPUSH Q6H PRN PRN Reason: PAIN Potassium Chloride (K-Dur -) 20 meq PO BID [facility] Potassium Phos/Sodium Phos (Phos-Nak Packet -) 1 packet PO BID [facility] Last Admin: 11/19/16 13:21 Dose: 1 packet - Objective Vital Signs: Vital Signs Temperature 95.2 F L 11/19/16 09:36 Pulse Rate 54 L 11/19/16 09:43 Respiratory Rate 20 11/19/16 13:29 Blood Pressure 105/62 11/19/16 09:36 O2 Sat by Pulse Oximetry (%) 98 11/19/16 09:44 Constitutional: Yes: Thin, Other (poorly responsive) Eyes: Yes: WNL HENT: Yes: WNL Neck: Yes: Supple (trach) Cardiovascular: Yes: Regular Rate and Rhythm, S1, S2 Respiratory: Yes: Rhonchi (few bilateral rhonchi) Gastrointestinal: Yes: Normal Bowel Sounds, Soft Extremities: Yes: Other (multiple ulcers) Labs: CBC, BMP 11/19/16 07:00 11/19/16 07:00 INR, PTT INR 1.46 (0.82-1.09) H 11/19/16 07:00 Fibrinogen 200.0 mg/dL (238-498) L 11/19/16 07:00 Problem List - Problems (1) CHF (congestive heart failure) Code(s): I50.9 - HEART FAILURE, UNSPECIFIED (2) CKD (chronic kidney disease) Code(s): N18.9 - CHRONIC KIDNEY DISEASE, UNSPECIFIED (3) History of CVA (cerebrovascular accident) Code(s): Z86.73 - PRSNL HX OF TIA (TIA), AND CEREB INFRC W/O RESID DEFICITS (4) Hypotension Code(s): I95.9 - HYPOTENSION, UNSPECIFIED Qualifiers: Hypotension type: unspecified hypotension type Qualified Code(s): I95.9 - Hypotension, unspecified (5) Hypothermia Code(s): T68.XXXA - HYPOTHERMIA, INITIAL ENCOUNTER Qualifiers: Encounter type: initial encounter Qualified Code(s): T68.XXXA - Hypothermia, initial encounter (6) Pressure ulcer of back Code(s): L89.109 - PRESSURE ULCER OF UNSP PART OF BACK, UNSPECIFIED STAGE (7) Sacral decubitus ulcer, stage IV Code(s): L89.154 - PRESSURE ULCER OF SACRAL REGION, STAGE 4 (8) Sepsis Code(s): A41.9 - SEPSIS, UNSPECIFIED ORGANISM Qualifiers: Sepsis type: sepsis due to unspecified organism Qualified Code(s): A41.9 - Sepsis, unspecified organism (9) Septic shock Code(s): A41.9 - SEPSIS, UNSPECIFIED ORGANISM R65.21 - SEVERE SEPSIS WITH SEPTIC SHOCK (10) Thrombocytopenia Code(s): D69.6 - THROMBOCYTOPENIA, UNSPECIFIED (11) Respiratory failure Code(s): J96.90 - RESPIRATORY FAILURE, UNSP, UNSP W HYPOXIA OR HYPERCAPNIA Assessment/Plan ASSESSMENT AND PLAN: Sacral Decubitus Ulcer Infection Gram Positive Bacteremia Septic Shock Lactic Acidosis ESRD on HD Chronic Hypotension h/o CVA Anoxic Encephalopathy Anemia - continue antibiotics - HD per renal - monitor H/H - poor prognosis for any meaningful recovery - DVT/GI prophylaxis DR BUNN
--- NOTE | 2016-11-19 14:23 | PN ---
Teaching Attending Note Name of Resident: Ros Dias ATTENDING PHYSICIAN STATEMENT I saw and evaluated the patient. I reviewed the resident's note and discussed the case with the resident. I agree with the resident's findings and plan as documented. SUBJECTIVE: Unable to obtain hx due ot anoxic brain injury OBJECTIVE: NAD , not responsive Pupils, round L > R . no facial droop , MMM, trach/vent. Lungs: clear anteriorly . Ext : 3+ pitting edema over legs and arms. Abd: soft, NT, ND , NL BS Skin: Stage 4 decub ulcer, was not examined today ASSESSMENT AND PLAN: 76 y/o man with h/o Anoxic brain injury, chronic hypotension , HLP, COPD , chrocni resp failure s/p trach, DM , hypothyroidism and other medical problems , who was brought from a NH due to coffee ground emesis .He was found to be in septic shock. 1-Septic shock : likely source is the decub ulcer. shock has resolved , but he is still hypothermic . remain septic with DIC - Cont ertapenem and zosyn - cont steroid taper . day 3 on 100 BID , will change tomorrow 2- Upper GI bleed : resolved. ? stress ulcer, VS PUD - Cont IV PPI - HB stable 3- DIC : due to severe sepsis . monitor coags - will transfuse blood products as needed ( fibrinogen < 100 , Hb < 7 , PLt < 20 ) 4- hypernatremia improved . cont increased free water with TF. 5- ESRD: - cont HD. 6- replete hypokalemia . 7- Hyperglycemia . start SSI q 6hr . repeat BMP 8- Sinus bradycardia : with episodes of PAF. - not a candidate for BB or AC at this point 9- dispo : [facility] FULL CODE
[2016-11-19] MEDS ORDERED: INSULIN (NOVOLOG) ASPART 100 UNITS/ML 10ML VIAL SQ ONE (14:40)
[2016-11-19 15:44] LABS: CALCIUM 7.2 mg/dL (8.5-10.1); CREATININE 1.9 mg/dL (0.7-1.3)
[2016-11-19] MEDS: INSULIN SLIDING SCALE (NOVOLOG) 1 VIAL SQ SCH (17:38)
[2016-11-19] MEDS ORDERED: INSULIN (NOVOLOG) ASPART 100 UNITS/ML 10ML VIAL ONE (20:32)
--- NOTE | 2016-11-19 21:18 | PN ---
Progress Note (short form) - Note Progress Note: patient seen and examined nonverbal Last Vital Signs Temp Pulse Resp BP Pulse Ox 98.4 F 70 18 140/66 99 11/19/16 18:00 11/19/16 18:00 11/19/16 18:00 11/19/16 18:00 11/19/16 10:00 HEENT: s/p trach Cor: RSR, No murmurs, No gallops Lungs: Clear to P&A Abd: Soft, Normal bowel sounds, No organomegaly Ext:No significant edema Abnormal Lab Results 11/18/16 11/18/16 11/19/16 22:00 22:00 07:00 WBC 3.4 L RBC 2.89 L Hgb 8.7 L Hct 26.2 L RDW 20.5 H Plt Count 20 L* INR Fibrinogen Potassium 2.9 L* BUN Creatinine Random Glucose Calcium Phosphorus Magnesium 1.7 L 11/19/16 11/19/16 11/19/16 07:00 07:00 14:40 WBC RBC Hgb Hct RDW Plt Count INR 1.46 H Fibrinogen 200.0 L Potassium 3.2 L 3.2 L BUN 45 H D 47 H Creatinine 1.9 H 1.9 H Random Glucose 409 H* 369 H* Calcium 7.2 L 7.2 L Phosphorus 1.9 L D Magnesium Active Medications Generic Name Dose Route Start Last Admin Trade Name Freq PRN Reason Stop Dose Admin Amino Acids 30 ml 11/16/16 08:00 11/19/16 16:38 Prosource No Carb Liquid Pkt PO 30 ml BID@0800,1730 STEVEN Administration Bacitracin 1 applic 11/18/16 12:47 11/19/16 10:15 Bacitracin - TP 1 applic DAILY STEVEN Administration Collagenase 1 applic 11/15/16 15:24 11/19/16 13:20 Santyl - TP 1 applic DAILY STEVEN Administration Hydrocortisone Sodium Succinate 100 mg 11/17/16 22:00 11/19/16 10:14 Solu-Cortef - IVPB 100 mg BID STEVEN Administration Piperacillin Sod/Tazobactam Sod 50 mls @ 100 mls/hr 11/16/16 12:15 11/19/16 17: 38 Zosyn 2.25gm Ivpb (Pre-Docked) IVPB 100 mls/hr Q8H-IV STEVEN Administration Protocol Ertapenem 1 gm/ Sodium 50 mls @ 100 mls/hr 11/17/16 17:00 11/19/16 10:16 Chloride IVPB 100 mls/hr DAILY STEVEN Administration Protocol Insulin Aspart 1 vial 11/19/16 12:37 11/19/16 17:38 Novolog Vial Sliding Scale - SQ 10 units Q6HPO STEVEN Administration Protocol Ketoconazole 1 applic 11/16/16 10:00 11/19/16 13:20 Nizoral 2% Cream - TP 1 applic DAILY STEVEN Administration Morphine Sulfate 2 mg 11/17/16 16:40 Morphine Injection - IVPUSH Q6H PRN PAIN Pantoprazole Sodium 40 mg 11/20/16 10:00 Protonix Packets For Oral Suspension - NGT DAILY STEVEN Potassium Chloride 20 meq 11/20/16 10:00 Kcl Oral Solution - PO DAILY STEVEN Potassium Phos/Sodium Phos 1 packet 11/19/16 11:15 11/19/16 13:21 Phos-Nak Packet - PO 1 packet BID STEVEN Administration a/p 76 y/o patient with h/o CVA, nonverbal, s/p trach/PEG, ESRD on dialysis, comes in withseptic shock, decubitiii, pus at gtube site on zosyn and meropenem Coagulopathy/thrombocytopenia: Consumption from DIC due to ongoing sepsis versus underlying liver disease versus vit. K deficiency no active bleeding check u/s liver will transfuse FFP for active bleeding transfuse platelets for active bleeding/prior toprocedures or <15-20,000 transfuse cryoprecipitate for fibrinogen <100 anemia of chronic disease due to ongoing sepsis hypothermic--repeating cultures ongoing discussion regarding goals of care
[2016-11-20] MEDS: INSULIN SLIDING SCALE (NOVOLOG) 1 VIAL SQ SCH ×5 (01:00→23:09)
[2016-11-20] MEDS: PIPERACILLIN/TAZOB 2.25 GM 50 ML IVPB SCH ×3 (01:54→17:09)
[2016-11-20] MEDS ORDERED: INSULIN (NOVOLOG) ASPART 100 UNITS/ML 10ML VIAL ONE ×4 (07:09→20:59)
[2016-11-20] MEDS ORDERED: INSULIN DETEMIR 100 UNITS/ML MDV SQ ONE (07:09)
[2016-11-20] MEDS ORDERED: PT OWN MED DRAWER 7, Y5N ONE ×2 (07:10→21:00)
[2016-11-20 07:33] LABS: MCH 30.4 pg (25.7-33.7); MEAN CELL VOLUME 89.5 fl (80-96); RDW 20.2 % (11.9-15.9); WHITE BLOOD COUNT 3.3 K/mm3 (4.0-10.0)
[2016-11-20 07:48] LABS: PLATELET COUNT 29 K/MM3 (134-434)
[2016-11-20 07:49] LABS: INR 1.43 (0.82-1.09); PROTHROMBIN TIME (PATIENT) 15.8 SEC (9.98-11.88)
[2016-11-20 07:58] LABS: ALBUMIN 1.7 g/dl (3.4-5.0); CALCIUM 7.2 mg/dL (8.5-10.1); PHOSPHOROUS 1.8 mg/dL (2.5-4.9)
[2016-11-20] MEDS: BACITRACIN 30 GM TUBE TOPICAL OINTMENT TP SCH (09:14)
[2016-11-20] MEDS: AMINO ACIDS/PROTEIN HYDROLYS 30 ML LIQUID.PKT PO SCH ×4 (09:14→16:49)
[2016-11-20] MEDS: ERTAPENEM SODIUM 1 GM in SODIUM CHLORIDE 50 ML IVPB SCH (09:15)
[2016-11-20] MEDS: PANTOPRAZOLE SOD 40 MG SUSPENSION PACKET NGT SCH ×3 (09:16→15:38)
[2016-11-20] MEDS: NAPH,MB-DB/K PH,MBDB POWDER PACKET PO SCH ×4 (09:16→21:51)
[2016-11-20] MEDS: POTASSIUM CHLORIDE 40 MEQ/30 ML UNIT DOSE CUP PO SCH ×3 (09:16→15:38)
[2016-11-20] MEDS: HYDROCORTISONE SOD SUCCINATE 100 MG/2 ML VIAL IVPB SCH ×2 (09:18→21:53)
[2016-11-20] MEDS: KETOCONAZOLE 2% CREAM - 60GM TUBE TP SCH (09:21)
[2016-11-20] MEDS: COLLAGENASE CLOSTRIDIUM HIST. 30 GRAMS TUBE TP SCH (09:22)
[2016-11-20] MEDS ORDERED: POTASSIUM CHLORIDE TABS 20 MEQ TABLET.ER (FP) PO SCH (10:00)
--- NOTE | 2016-11-20 11:48 | PN ---
Progress Note (short form) - Note Progress Note: RENAL Pt seen and examined appears comfortable BP is better Last Vital Signs Temp Pulse Resp BP Pulse Ox 97.5 F L 63 15 105/59 95 11/20/16 09:23 11/20/16 10:15 11/20/16 10:15 11/20/16 09:23 11/20/16 11:29 trached lungs bilateral air entry cvs s1s2 rr abd soft ext +edema neuro a+ox3 CBC, BMP 11/20/16 06:15 11/20/16 06:15 Current Medications Generic Name Dose Route Start Last Admin Trade Name Freq PRN Reason Stop Dose Admin Amino Acids 30 ml 11/16/16 08:00 11/20/16 11:07 Prosource No Carb Liquid Pkt PO Not Given BID@0800,1730 STEVEN Bacitracin 1 applic 11/18/16 12:47 11/20/16 09:14 Bacitracin - TP 1 applic DAILY STEVEN Administration Collagenase 1 applic 11/15/16 15:24 11/20/16 09:22 Santyl - TP 1 applic DAILY STEVEN Administration Hydrocortisone Sodium Succinate 100 mg 11/17/16 22:00 11/20/16 09:18 Solu-Cortef - IVPB 100 mg BID STEVEN Administration Piperacillin Sod/Tazobactam Sod 50 mls @ 100 mls/hr 11/16/16 12:15 11/20/16 09: 16 Zosyn 2.25gm Ivpb (Pre-Docked) IVPB 100 mls/hr Q8H-IV STEVEN Administration Protocol Ertapenem 1 gm/ Sodium 50 mls @ 100 mls/hr 11/17/16 17:00 11/20/16 09:15 Chloride IVPB 100 mls/hr DAILY STEVEN Administration Protocol Insulin Aspart 1 vial 11/19/16 12:37 11/20/16 06:40 Novolog Vial Sliding Scale - SQ 4 units Q6HPO STEVEN Administration Protocol Ketoconazole 1 applic 11/16/16 10:00 11/20/16 09:21 Nizoral 2% Cream - TP 1 applic DAILY STEVEN Administration Morphine Sulfate 2 mg 11/17/16 16:40 Morphine Injection - IVPUSH Q6H PRN PAIN Pantoprazole Sodium 40 mg 11/20/16 10:00 11/20/16 11:09 Protonix Packets For Oral Suspension - NGT Not Given DAILY STEVEN Potassium Chloride 20 meq 11/20/16 10:00 11/20/16 11:09 Kcl Oral Solution - PO Not Given DAILY STEVEN Potassium Phos/Sodium Phos 1 packet 11/19/16 11:15 11/20/16 11:09 Phos-Nak Packet - PO Not Given BID STEVEN ression 1. ESRD 2. hypotension 3. chronic respiratory failure 4. sepsis 5. Anemia 6. GI bleed 7. CVA 8. DM 9. Hypothyroidism 10. pancytopenia Plan - should be on hospice. - family to meet regarding goals of care - continue antibiotics and hydrocortisone MV
[2016-11-20] MEDS ORDERED: EPOETIN ALFA 3,000 UNIT/1 ML ML SQ ONE (11:49)
--- NOTE | 2016-11-20 12:06 | PN ---
Progress Note, Physician History of Present Illness: PULMONARY NO DISTRESS,POORLY RESPONSIVE ON VENT SUPPORT AC MODE - Current Medication List Current Medications: Active Medications Amino Acids (Prosource No Carb Liquid Pkt) 30 ml PO BID@0800,1730 [facility] Last Admin: 11/20/16 11:07 Dose: Not Given Bacitracin (Bacitracin -) 1 applic TP DAILY [facility] Last Admin: 11/20/16 09:14 Dose: 1 applic Collagenase (Santyl -) 1 applic TP DAILY [facility] Last Admin: 11/20/16 09:22 Dose: 1 applic Epoetin Rigoberto (Procrit -) 5,000 unit SQ ONCE ONE Stop: 11/20/16 11:50 Hydrocortisone Sodium Succinate (Solu-Cortef -) 100 mg IVPB BID [facility] Last Admin: 11/20/16 09:18 Dose: 100 mg Piperacillin Sod/Tazobactam Sod (Zosyn 2.25gm Ivpb (Pre-Docked)) 50 mls @ 100 mls/hr IVPB Q8H-IV STEVEN PRN Reason: Protocol Last Admin: 11/20/16 09:16 Dose: 100 mls/hr Ertapenem 1 gm/ Sodium (Chloride) 50 mls @ 100 mls/hr IVPB DAILY STEVEN PRN Reason: Protocol Last Admin: 11/20/16 09:15 Dose: 100 mls/hr Insulin Aspart (Novolog Vial Sliding Scale -) 1 vial SQ Q6HPO STEVEN PRN Reason: Protocol Last Admin: 11/20/16 06:40 Dose: 4 units Ketoconazole (Nizoral 2% Cream -) 1 applic TP DAILY [facility] Last Admin: 11/20/16 09:21 Dose: 1 applic Morphine Sulfate (Morphine Injection -) 2 mg IVPUSH Q6H PRN PRN Reason: PAIN Pantoprazole Sodium (Protonix Packets For Oral Suspension -) 40 mg NGT DAILY [facility] Last Admin: 11/20/16 11:09 Dose: Not Given Potassium Chloride (Kcl Oral Solution -) 20 meq PO DAILY [facility] Last Admin: 11/20/16 11:09 Dose: Not Given Potassium Phos/Sodium Phos (Phos-Nak Packet -) 1 packet PO BID [facility] Last Admin: 11/20/16 11:09 Dose: Not Given - Objective Vital Signs: Vital Signs Temperature 97.5 F L 11/20/16 09:23 Pulse Rate 63 11/20/16 10:15 Respiratory Rate 15 11/20/16 10:15 Blood Pressure 105/59 11/20/16 09:23 O2 Sat by Pulse Oximetry (%) 95 11/20/16 11:29 Constitutional: Yes: Thin, Other (POORLY RESPONSIVE) HENT: Yes: WNL Neck: Yes: Supple (TRACH) Cardiovascular: Yes: Regular Rate and Rhythm, S1, S2 Respiratory: Yes: Rhonchi (FEW RHONCHI) Gastrointestinal: Yes: Normal Bowel Sounds, Soft Extremities: Yes: Other (MULTIPLE ULCERS) Labs: CBC, BMP 11/20/16 06:15 11/20/16 06:15 INR, PTT INR 1.43 (0.82-1.09) H 11/20/16 06:15 Fibrinogen 190.0 mg/dL (238-498) L 11/20/16 06:15 Problem List - Problems (1) CHF (congestive heart failure) Code(s): I50.9 - HEART FAILURE, UNSPECIFIED (2) CKD (chronic kidney disease) Code(s): N18.9 - CHRONIC KIDNEY DISEASE, UNSPECIFIED (3) History of CVA (cerebrovascular accident) Code(s): Z86.73 - PRSNL HX OF TIA (TIA), AND CEREB INFRC W/O RESID DEFICITS (4) Hypotension Code(s): I95.9 - HYPOTENSION, UNSPECIFIED Qualifiers: Hypotension type: unspecified hypotension type Qualified Code(s): I95.9 - Hypotension, unspecified (5) Hypothermia Code(s): T68.XXXA - HYPOTHERMIA, INITIAL ENCOUNTER Qualifiers: Encounter type: initial encounter Qualified Code(s): T68.XXXA - Hypothermia, initial encounter (6) Pressure ulcer of back Code(s): L89.109 - PRESSURE ULCER OF UNSP PART OF BACK, UNSPECIFIED STAGE (7) Sacral decubitus ulcer, stage IV Code(s): L89.154 - PRESSURE ULCER OF SACRAL REGION, STAGE 4 (8) Sepsis Code(s): A41.9 - SEPSIS, UNSPECIFIED ORGANISM Qualifiers: Sepsis type: sepsis due to unspecified organism Qualified Code(s): A41.9 - Sepsis, unspecified organism (9) Septic shock Code(s): A41.9 - SEPSIS, UNSPECIFIED ORGANISM R65.21 - SEVERE SEPSIS WITH SEPTIC SHOCK (10) Thrombocytopenia Code(s): D69.6 - THROMBOCYTOPENIA, UNSPECIFIED (11) Respiratory failure Code(s): J96.90 - RESPIRATORY FAILURE, UNSP, UNSP W HYPOXIA OR HYPERCAPNIA Assessment/Plan ASSESSMENT AND PLAN: Sacral Decubitus Ulcer Infection Gram Positive Bacteremia Septic Shock Lactic Acidosis ESRD on HD Chronic Hypotension h/o CVA Anoxic Encephalopathy Anemia,thrombocytopenia - continue antibiotics - HD per renal - monitor H/H - poor prognosis for any meaningful recovery - DVT/GI prophylaxis DR BUNN
--- NOTE | 2016-11-20 13:24 | PN ---
Progress Note, Physician History of Present Illness: patient stable rectal tube in place temp normal still draining wounds still dirrhoea - Current Medication List Current Medications: Active Medications Amino Acids (Prosource No Carb Liquid Pkt) 30 ml PO BID@0800,1730 [facility] Last Admin: 11/20/16 11:07 Dose: Not Given Bacitracin (Bacitracin -) 1 applic TP DAILY [facility] Last Admin: 11/20/16 09:14 Dose: 1 applic Collagenase (Santyl -) 1 applic TP DAILY [facility] Last Admin: 11/20/16 09:22 Dose: 1 applic Epoetin Rigoberto (Procrit -) 5,000 unit SQ ONCE ONE Stop: 11/20/16 11:50 Hydrocortisone Sodium Succinate (Solu-Cortef -) 100 mg IVPB BID [facility] Last Admin: 11/20/16 09:18 Dose: 100 mg Piperacillin Sod/Tazobactam Sod (Zosyn 2.25gm Ivpb (Pre-Docked)) 50 mls @ 100 mls/hr IVPB Q8H-IV STEVEN PRN Reason: Protocol Last Admin: 11/20/16 09:16 Dose: 100 mls/hr Ertapenem 1 gm/ Sodium (Chloride) 50 mls @ 100 mls/hr IVPB DAILY [facility] PRN Reason: Protocol Last Admin: 11/20/16 09:15 Dose: 100 mls/hr Insulin Aspart (Novolog Vial Sliding Scale -) 1 vial SQ Q6HPO STEVEN PRN Reason: Protocol Last Admin: 11/20/16 12:24 Dose: Not Given Ketoconazole (Nizoral 2% Cream -) 1 applic TP DAILY [facility] Last Admin: 11/20/16 09:21 Dose: 1 applic Morphine Sulfate (Morphine Injection -) 2 mg IVPUSH Q6H PRN PRN Reason: PAIN Pantoprazole Sodium (Protonix Packets For Oral Suspension -) 40 mg NGT DAILY [facility] Last Admin: 11/20/16 11:09 Dose: Not Given Potassium Chloride (Kcl Oral Solution -) 20 meq PO DAILY [facility] Last Admin: 11/20/16 11:09 Dose: Not Given Potassium Phos/Sodium Phos (Phos-Nak Packet -) 1 packet PO BID [facility] Last Admin: 11/20/16 11:09 Dose: Not Given - Objective Vital Signs: Vital Signs Temperature 97.5 F L 11/20/16 09:23 Pulse Rate 63 11/20/16 10:15 Respiratory Rate 15 11/20/16 10:15 Blood Pressure 105/59 11/20/16 09:23 O2 Sat by Pulse Oximetry (%) 95 11/20/16 11:29 Constitutional: Yes: Other Cardiovascular: Yes: Regular Rate and Rhythm Respiratory: Yes: Regular, Poor Air Entry Gastrointestinal: Yes: Soft, Other (peg tube in place) Musculoskeletal: Yes: Other Extremities: Yes: Other (multiple pressure ulcer) Wound/Incision: Yes: Draining, Other (multiple ulcers decubitus ulcers) Neurological: Yes: Other (opens eyes) Psychiatric: Yes: Other Labs: CBC, BMP 11/20/16 06:15 11/20/16 06:15 INR, PTT INR 1.43 (0.82-1.09) H 11/20/16 06:15 Fibrinogen 190.0 mg/dL (238-498) L 11/20/16 06:15 Assessment/Plan decubitus ulcer multiple pressure ulcer infected peg tube site septic shock lactic acidosis hypotension hypthermia esrd cva gram positive bacteremia rash patient being applied ketaconozole plan continue current mgmt continue resp support wound care continue abx family wants full treatment
--- NOTE | 2016-11-20 15:07 | PN ---
Progress Note (short form) - Note Progress Note: Subjective:unable to obtain hx due to anoxic brain injury . no events over night . was taken off bear hugger yesterday Objective: Vital Signs: Last Vital Signs Temp Pulse Resp BP Pulse Ox 97.4 F L 55 L 15 125/60 95 11/20/16 14:12 11/20/16 14:12 11/20/16 14:12 11/20/16 14:12 11/20/16 11:29 Physical Exam: NAD , not responsive Pupils, round L > R . no facial droop , MMM, trach/vent. Lungs: clear anteriorly . Ext : 3+ pitting edema over legs and arms. Abd: soft, NT, ND , NL BS , 3+ pitting hard edema Skin: Stage 4 decub ulcer, was not examined today Laboratory Results - last 24 hr 11/16/16 11/19/16 11/19/16 22:45 14:40 15:30 WBC RBC Hgb Hct MCV MCHC RDW Plt Count MPV INR Fibrinogen Sodium 145 Potassium 3.2 L Cancelled Chloride 107 Carbon Dioxide 23 Anion Gap 15 BUN 47 H Creatinine 1.9 H POC Glucometer Random Glucose 369 H* Calcium 7.2 L Phosphorus Magnesium Albumin Blood Type O POSITIVE Antibody Screen Negative Crossmatch See Detail 11/19/16 11/20/16 11/20/16 17:29 01:49 06:15 WBC 3.3 L RBC 2.79 L Hgb 8.5 L Hct 25.0 L MCV 89.5 MCHC 34.0 RDW 20.2 H Plt Count 29 L* D MPV 11.0 D INR Fibrinogen Sodium Potassium Chloride Carbon Dioxide Anion Gap BUN Creatinine POC Glucometer 360 237 Random Glucose Calcium Phosphorus Magnesium Albumin Blood Type Antibody Screen Crossmatch 11/20/16 11/20/16 11/20/16 06:15 06:15 06:39 WBC RBC Hgb Hct MCV MCHC RDW Plt Count MPV INR 1.43 H Fibrinogen 190.0 L Sodium 147 H Potassium 3.0 L Chloride 107 Carbon Dioxide 26 Anion Gap 14 BUN 54 H Creatinine 2.0 H POC Glucometer 238 Random Glucose 243 H D Calcium 7.2 L Phosphorus 1.8 L Magnesium 2.0 Albumin 1.7 L Blood Type Antibody Screen Crossmatch 11/20/16 12:22 WBC RBC Hgb Hct MCV MCHC RDW Plt Count MPV INR Fibrinogen Sodium Potassium Chloride Carbon Dioxide Anion Gap BUN Creatinine POC Glucometer 197 Random Glucose Calcium Phosphorus Magnesium Albumin Blood Type Antibody Screen Crossmatch ASSESSMENT AND PLAN: 76 y/o man with h/o Anoxic brain injury, chronic hypotension , HLP, COPD , chrocni resp failure s/p trach, DM , hypothyroidism and other medical problems , who was brought from a NH due to coffee ground emesis .He was found to be in septic shock. 1-Septic shock: likely source is the decub ulcer. Hypothermia recovered. - Cont ertapenem and zosyn - Change steroid to 50 bid 2- Upper GI bleed : resolved. ? stress ulcer, VS PUD - po ppi instead of IV - HB stable 3- DIC: due to severe sepsis . monitor coags - will transfuse blood products as needed ( fibrinogen < 100 , Hb < 7 , PLt < 20 ) 4- Hypernatremia . cont increased free water with TF. it it worsens tomorrow , will increase free water further. 5- ESRD: - cont HD. 6- Replete hypokalemia and hypophosphatemia 7- Hyperglycemia . COnt SSI q 6hr .sugar improved 8- Sinus bradycardia : with episodes of PAF. - not a candidate for BB or AC at this point 9- dispo : [facility] Full code per family wishes. Visit type - Emergency Visit Emergency Visit: Yes ED Registration Date: 11/12/16 Care time: The patient presented to the Emergency Department on the above date and was hospitalized for further evaluation of their emergent condition. - New Patient This patient is new to me today: No - Critical Care Critical Care patient: No
[2016-11-20] MEDS ORDERED: POTASSIUM PHOSPHATE 15 MM in SODIUM CHLORIDE 250 ML IVPB ONE (15:30)
[2016-11-21] MEDS: PIPERACILLIN/TAZOB 2.25 GM 50 ML IVPB SCH ×3 (02:32→17:38)
[2016-11-21] MEDS: INSULIN SLIDING SCALE (NOVOLOG) 1 VIAL SQ SCH ×4 (06:33→23:25)
[2016-11-21] MEDS: AMINO ACIDS/PROTEIN HYDROLYS 30 ML LIQUID.PKT PO SCH ×2 (09:15→17:37)
[2016-11-21] MEDS: HYDROCORTISONE SOD SUCCINATE 100 MG/2 ML VIAL IVPB SCH ×2 (10:23→22:55)
[2016-11-21] MEDS: ERTAPENEM SODIUM 1 GM in SODIUM CHLORIDE 50 ML IVPB SCH ×2 (10:40→13:40)
[2016-11-21] MEDS: COLLAGENASE CLOSTRIDIUM HIST. 30 GRAMS TUBE TP SCH (11:45)
[2016-11-21] MEDS: KETOCONAZOLE 2% CREAM - 60GM TUBE TP SCH (11:45)
[2016-11-21] MEDS: BACITRACIN 30 GM TUBE TOPICAL OINTMENT TP SCH (11:53)
[2016-11-21] MEDS: NAPH,MB-DB/K PH,MBDB POWDER PACKET PO SCH ×2 (11:53→22:56)
[2016-11-21] MEDS: POTASSIUM CHLORIDE 40 MEQ/30 ML UNIT DOSE CUP PO SCH (11:53)
[2016-11-21] MEDS: PANTOPRAZOLE SOD 40 MG SUSPENSION PACKET NGT SCH (11:53)
[2016-11-21] MEDS ORDERED: INSULIN (NOVOLOG) ASPART 100 UNITS/ML 10ML VIAL ONE (12:06)
--- NOTE | 2016-11-21 12:56 | PN ---
Physical Exam: SUBJECTIVE: Patient seen and examined Patient resting in bed, condition at baseline, opening eyes to sternal rub. Hypothermic 93.5 this morning, improved to 96 on john hugger. Off pressors BP stable. HR 50's. No change in vent settings: 12/450/35%/50/5/10. Not tachypneic. 100cc watery light brown diarrhea in rectal tube. No bleeding. No further hematemesis. anuric. HD yesterday later today. OBJECTIVE: Vital Signs Period Temp Pulse Resp BP Sys/Vang Pulse Ox Last 24 Hr 93.5 F-97.4 F 51-71 12-18 115-139/60-77 96-100 GENERAL: unresponsive, open eyes. 3+ anasarca HEAD: Normal with no signs of trauma. EYES: sclera anicteric, conjunctiva clear. ENT: moist mucous membranes. NECK: supple. LUNGS: diffuse ronchi, trach, vent. HEART: Regular rate and rhythm, S1, S2 ABDOMEN: Soft, nondistended, globally reduced bowel sounds, Peg in place, dermatitis around peg EXTREMITIES: 1+ pulses, warm, 3+ edema. b/l pressure ulcers on heels with black echar. clean dressing in place Sacrum: unstageable pressure ulcer with black echar, malodorous. NEUROLOGICAL: symmetrical face PSYCH: unable to assess SKIN: Warm, dry Laboratory Results - last 24 hr 11/19/16 11/19/16 11/20/16 11:57 13:59 17:10 POC Glucometer 419 419 212 11/20/16 11/21/16 11/21/16 23:06 06:32 11:54 POC Glucometer 213 293 288 Active Medications Generic Name Dose Route Start Last Admin Trade Name Freq PRN Reason Stop Dose Admin Amino Acids 30 ml 11/16/16 08:00 11/21/16 09:15 Prosource No Carb Liquid Pkt PO 30 ml BID@0800,1730 STEVEN Administration Bacitracin 1 applic 11/18/16 12:47 11/21/16 11:53 Bacitracin - TP 1 applic DAILY STEVEN Administration Collagenase 1 applic 11/15/16 15:24 11/20/16 09:22 Santyl - TP 1 applic DAILY STEVEN Administration Epoetin Rigoberto 3,000 unit/ 5,000 unit 11/21/16 13:00 Epoetin Rigoberto 2,000 unit IVPUSH 11/21/16 13:01 ONCE ONE Hydrocortisone Sodium Succinate 100 mg 11/17/16 22:00 11/21/16 10:23 Solu-Cortef - IVPB 100 mg BID STEVEN Administration Piperacillin Sod/Tazobactam Sod 50 mls @ 100 mls/hr 11/16/16 12:15 11/21/16 09: 15 Zosyn 2.25gm Ivpb (Pre-Docked) IVPB 100 mls/hr Q8H-IV STEVEN Administration Protocol Ertapenem 1 gm/ Sodium 50 mls @ 100 mls/hr 11/17/16 17:00 11/20/16 09:15 Chloride IVPB 100 mls/hr DAILY STEVEN Administration Protocol Insulin Aspart 1 vial 11/19/16 12:37 11/21/16 12:10 Novolog Vial Sliding Scale - SQ 6 units Q6HPO STEVEN Administration Protocol Ketoconazole 1 applic 11/16/16 10:00 11/20/16 09:21 Nizoral 2% Cream - TP 1 applic DAILY STEVEN Administration Morphine Sulfate 2 mg 11/17/16 16:40 Morphine Injection - IVPUSH Q6H PRN PAIN Pantoprazole Sodium 40 mg 11/20/16 10:00 11/21/16 11:53 Protonix Packets For Oral Suspension - NGT 40 mg DAILY STEVEN Administration Potassium Chloride 20 meq 11/20/16 10:00 11/21/16 11:53 Kcl Oral Solution - PO 20 meq DAILY STEVEN Administration Potassium Phos/Sodium Phos 1 packet 11/19/16 11:15 11/21/16 11:53 Phos-Nak Packet - PO 1 packet BID STEVEN Administration ASSESSMENT/PLAN: This is a 76 yo M with PMH of hypotension, HLD, hypothyroidism, DM, COPD, ESRD, GERD, s/p tracheostomy, s/p gastrostomy presented to ER from [facility] for coffee ground emesis. Septic shock -likley source sacral decubitus ulcer -unstageable ulcer -evaluated by wound care. -no need for debridement at this time, dressing changes. Not healing -Gram Positive Bacteremia in 1/2 bottles, likely staph, likely contaminant. repeat culture negative -Lactic Acidosis -ID consult appreciated -wound culture: pseudomonas, ESBL -ertapenem day 5 and zosyn d 8 -likely osteo, will need PICC line before d/c -strict I and O (anuric) dermatitis -on penis, around peg -bacitracin ointment Diarrhea -resolving -likley due to abx treatment -rectal tube -C diff toxin negative x 2 Hypothermia -john hassan PRN ESRD on HD -HD today -nephro consult appreciated Chronic Hypotension -weaned off levophed -weaned off dopamine -if hypotensive again can start dopamine at steady rate of 5 -hydrocortisone 50 bid d 5 Acute on chronic Anemia -aggravated by GIB -coffee ground emesis resolved -total 3u pRBC this admission -hgb stable -monitor h/h -epogen -IV PPI BID DIC -due to sepsis -fibrinogen trending up -trend coags -Heme consult apprecited -no active bleed -Platelets 20's DM -BGM q6 -sliding scale required 16 u yesterday Anoxic Encephalopathy -unresponsive -unlikely to have meaningful recovery -grave prognosis -palliative care consult spoke with family -Family wishes full code due tor eligious reasons FEN no IVF replete lytes prn tube feeds. increased free water from 10 to 15 Dispo: 5s Problem List - Problems (1) GORDON (acute kidney injury) Code(s): N17.9 - ACUTE KIDNEY FAILURE, UNSPECIFIED (2) Anasarca Code(s): R60.1 - GENERALIZED EDEMA (3) Anemia Code(s): D64.9 - ANEMIA, UNSPECIFIED (4) CHF (congestive heart failure) Code(s): I50.9 - HEART FAILURE, UNSPECIFIED (5) CKD (chronic kidney disease) Code(s): N18.9 - CHRONIC KIDNEY DISEASE, UNSPECIFIED (6) Elevated INR Code(s): R79.1 - ABNORMAL COAGULATION PROFILE (7) Elevated brain natriuretic peptide (BNP) level Code(s): R79.89 - OTHER SPECIFIED ABNORMAL FINDINGS OF BLOOD CHEMISTRY (8) Fluid overload Code(s): E87.70 - FLUID OVERLOAD, UNSPECIFIED (9) History of CVA (cerebrovascular accident) Code(s): Z86.73 - PRSNL HX OF TIA (TIA), AND CEREB INFRC W/O RESID DEFICITS (10) Hypoalbuminemia Code(s): E88.09 - OTH DISORDERS OF PLASMA-PROTEIN METABOLISM, NEC (11) Hypotension Code(s): I95.9 - HYPOTENSION, UNSPECIFIED Qualifiers: Hypotension type: unspecified hypotension type Qualified Code(s): I95.9 - Hypotension, unspecified (12) Passes no urine Code(s): R34 - ANURIA AND OLIGURIA (13) Pressure ulcer Code(s): L89.90 - PRESSURE ULCER OF UNSPECIFIED SITE, UNSPECIFIED STAGE (14) Pressure ulcer of ankle Code(s): L89.509 - PRESSURE ULCER OF UNSPECIFIED ANKLE, UNSPECIFIED STAGE (15) Pressure ulcer of back Code(s): L89.109 - PRESSURE ULCER OF UNSP PART OF BACK, UNSPECIFIED STAGE (16) Sacral decubitus ulcer, stage IV Code(s): L89.154 - PRESSURE ULCER OF SACRAL REGION, STAGE 4 (17) Sepsis Code(s): A41.9 - SEPSIS, UNSPECIFIED ORGANISM Qualifiers: Sepsis type: sepsis due to unspecified organism Qualified Code(s): A41.9 - Sepsis, unspecified organism (18) Septic shock Code(s): A41.9 - SEPSIS, UNSPECIFIED ORGANISM R65.21 - SEVERE SEPSIS WITH SEPTIC SHOCK (19) Thrombocytopenia Code(s): D69.6 - THROMBOCYTOPENIA, UNSPECIFIED (20) Transaminitis Code(s): R74.0 - NONSPEC ELEV OF LEVELS OF TRANSAMNS & LACTIC ACID DEHYDRGNSE (21) Upper GI bleed Code(s): K92.2 - GASTROINTESTINAL HEMORRHAGE, UNSPECIFIED Visit type - Emergency Visit Emergency Visit: Yes ED Registration Date: 11/12/16 Care time: The patient presented to the Emergency Department on the above date and was hospitalized for further evaluation of their emergent condition. - New Patient This patient is new to me today: No - Critical Care Critical Care patient: No - Discharge Referral Referred to [facility] Med P.C.: No
[2016-11-21] MEDS ORDERED: EPOETIN ALFA 3,000 UNIT, EPOETIN ALFA 2,000 UNIT IVPUSH ONE (13:00)
--- NOTE | 2016-11-21 13:20 | PN ---
Progress Note, Physician History of Present Illness: PULMONARY NO CHANGE POORLY RESPONSIVE ON VENT SUPPORT,AC MODE,HYPOTHERMIC - Current Medication List Current Medications: Active Medications Amino Acids (Prosource No Carb Liquid Pkt) 30 ml PO BID@0800,1730 [facility] Last Admin: 11/21/16 09:15 Dose: 30 ml Bacitracin (Bacitracin -) 1 applic TP DAILY [facility] Last Admin: 11/21/16 11:53 Dose: 1 applic Collagenase (Santyl -) 1 applic TP DAILY [facility] Last Admin: 11/20/16 09:22 Dose: 1 applic Hydrocortisone Sodium Succinate (Solu-Cortef -) 50 mg IVPB BID [facility] Piperacillin Sod/Tazobactam Sod (Zosyn 2.25gm Ivpb (Pre-Docked)) 50 mls @ 100 mls/hr IVPB Q8H-IV STEVEN PRN Reason: Protocol Last Admin: 11/21/16 09:15 Dose: 100 mls/hr Ertapenem 1 gm/ Sodium (Chloride) 50 mls @ 100 mls/hr IVPB DAILY [facility] PRN Reason: Protocol Last Admin: 11/20/16 09:15 Dose: 100 mls/hr Insulin Aspart (Novolog Vial Sliding Scale -) 1 vial SQ Q6HPO STEVEN PRN Reason: Protocol Last Admin: 11/21/16 12:10 Dose: 6 units Ketoconazole (Nizoral 2% Cream -) 1 applic TP DAILY [facility] Last Admin: 11/20/16 09:21 Dose: 1 applic Morphine Sulfate (Morphine Injection -) 2 mg IVPUSH Q6H PRN PRN Reason: PAIN Pantoprazole Sodium (Protonix Packets For Oral Suspension -) 40 mg NGT DAILY [facility] Last Admin: 11/21/16 11:53 Dose: 40 mg Potassium Chloride (Kcl Oral Solution -) 20 meq PO DAILY [facility] Last Admin: 11/21/16 11:53 Dose: 20 meq Potassium Phos/Sodium Phos (Phos-Nak Packet -) 1 packet PO BID [facility] Last Admin: 11/21/16 11:53 Dose: 1 packet - Objective Vital Signs: Vital Signs Temperature 96.8 F L 11/21/16 09:00 Pulse Rate 71 11/21/16 10:16 Respiratory Rate 13 11/21/16 10:15 Blood Pressure 122/68 11/21/16 09:00 O2 Sat by Pulse Oximetry (%) 96 03/27/17 10:16 Constitutional: Yes: Thin, Other (POORLY RESPONSIVE) Eyes: Yes: WNL HENT: Yes: WNL Neck: Yes: Supple (+ trach) Cardiovascular: Yes: Regular Rate and Rhythm, S1, S2 Respiratory: Yes: Rhonchi (few scattered moshe rhonchi) Gastrointestinal: Yes: Normal Bowel Sounds, Soft Extremities: Yes: Other (multiple ulcers) Edema: No Labs: CBC, BMP 11/20/16 06:15 11/20/16 06:15 INR, PTT INR 1.43 (0.82-1.09) H 11/20/16 06:15 Fibrinogen 190.0 mg/dL (238-498) L 11/20/16 06:15 Problem List - Problems (1) CHF (congestive heart failure) Code(s): I50.9 - HEART FAILURE, UNSPECIFIED (2) CKD (chronic kidney disease) Code(s): N18.9 - CHRONIC KIDNEY DISEASE, UNSPECIFIED (3) History of CVA (cerebrovascular accident) Code(s): Z86.73 - PRSNL HX OF TIA (TIA), AND CEREB INFRC W/O RESID DEFICITS (4) Hypotension Code(s): I95.9 - HYPOTENSION, UNSPECIFIED Qualifiers: Hypotension type: unspecified hypotension type Qualified Code(s): I95.9 - Hypotension, unspecified (5) Hypothermia Code(s): T68.XXXA - HYPOTHERMIA, INITIAL ENCOUNTER Qualifiers: Encounter type: initial encounter Qualified Code(s): T68.XXXA - Hypothermia, initial encounter (6) Pressure ulcer of back Code(s): L89.109 - PRESSURE ULCER OF UNSP PART OF BACK, UNSPECIFIED STAGE (7) Sacral decubitus ulcer, stage IV Code(s): L89.154 - PRESSURE ULCER OF SACRAL REGION, STAGE 4 (8) Sepsis Code(s): A41.9 - SEPSIS, UNSPECIFIED ORGANISM Qualifiers: Sepsis type: sepsis due to unspecified organism Qualified Code(s): A41.9 - Sepsis, unspecified organism (9) Septic shock Code(s): A41.9 - SEPSIS, UNSPECIFIED ORGANISM R65.21 - SEVERE SEPSIS WITH SEPTIC SHOCK (10) Thrombocytopenia Code(s): D69.6 - THROMBOCYTOPENIA, UNSPECIFIED (11) Respiratory failure Code(s): J96.90 - RESPIRATORY FAILURE, UNSP, UNSP W HYPOXIA OR HYPERCAPNIA Assessment/Plan ASSESSMENT AND PLAN: Sacral Decubitus Ulcer Infection Gram Positive Bacteremia Septic Shock Lactic Acidosis ESRD on HD Chronic Hypotension h/o CVA Anoxic Encephalopathy Anemia,thrombocytopenia - continue antibiotics - HD per renal - monitor H/H - poor prognosis for any meaningful recovery - DVT/GI prophylaxis DR BUNN
--- NOTE | 2016-11-21 13:25 | PN ---
Progress Note, Physician History of Present Illness: stable no new events patient on dialysis - Current Medication List Current Medications: Active Medications Amino Acids (Prosource No Carb Liquid Pkt) 30 ml PO BID@0800,1730 [facility] Last Admin: 11/21/16 09:15 Dose: 30 ml Bacitracin (Bacitracin -) 1 applic TP DAILY [facility] Last Admin: 11/21/16 11:53 Dose: 1 applic Collagenase (Santyl -) 1 applic TP DAILY [facility] Last Admin: 11/20/16 09:22 Dose: 1 applic Hydrocortisone Sodium Succinate (Solu-Cortef -) 50 mg IVPB BID [facility] Piperacillin Sod/Tazobactam Sod (Zosyn 2.25gm Ivpb (Pre-Docked)) 50 mls @ 100 mls/hr IVPB Q8H-IV STEVEN PRN Reason: Protocol Last Admin: 11/21/16 09:15 Dose: 100 mls/hr Ertapenem 1 gm/ Sodium (Chloride) 50 mls @ 100 mls/hr IVPB DAILY [facility] PRN Reason: Protocol Last Admin: 11/20/16 09:15 Dose: 100 mls/hr Insulin Aspart (Novolog Vial Sliding Scale -) 1 vial SQ Q6HPO STEVEN PRN Reason: Protocol Last Admin: 11/21/16 12:10 Dose: 6 units Ketoconazole (Nizoral 2% Cream -) 1 applic TP DAILY [facility] Last Admin: 11/20/16 09:21 Dose: 1 applic Morphine Sulfate (Morphine Injection -) 2 mg IVPUSH Q6H PRN PRN Reason: PAIN Pantoprazole Sodium (Protonix Packets For Oral Suspension -) 40 mg NGT DAILY [facility] Last Admin: 11/21/16 11:53 Dose: 40 mg Potassium Chloride (Kcl Oral Solution -) 20 meq PO DAILY [facility] Last Admin: 11/21/16 11:53 Dose: 20 meq Potassium Phos/Sodium Phos (Phos-Nak Packet -) 1 packet PO BID [facility] Last Admin: 11/21/16 11:53 Dose: 1 packet - Objective Vital Signs: Vital Signs Temperature 96.8 F L 11/21/16 09:00 Pulse Rate 71 11/21/16 10:16 Respiratory Rate 13 11/21/16 10:15 Blood Pressure 122/68 11/21/16 09:00 O2 Sat by Pulse Oximetry (%) 96 11/21/16 10:16 Constitutional: Yes: Other Cardiovascular: Yes: Regular Rate and Rhythm Respiratory: Yes: Regular, CTA Bilaterally Gastrointestinal: Yes: Normal Bowel Sounds, Soft, Other (peg in place) Musculoskeletal: Yes: Other Extremities: Yes: Other (multiple draing pressure ulcer) Integumentary: Yes: Pressure Ulcer, Other Neurological: Yes: Alert Labs: CBC, BMP 11/20/16 06:15 11/20/16 06:15 INR, PTT INR 1.43 (0.82-1.09) H 11/20/16 06:15 Fibrinogen 190.0 mg/dL (238-498) L 11/20/16 06:15 Assessment/Plan decubitus ulcer multiple pressure ulcer infected peg tube site septic shock lactic acidosis hypotension hypthermia esrd cva gram positive bacteremia rash patient being applied ketaconozole plan continue current mgmt continue abx
--- NOTE | 2016-11-21 14:56 | PN ---
Teaching Attending Note Name of Resident: Ros Dias ATTENDING PHYSICIAN STATEMENT I saw and evaluated the patient. I reviewed the resident's note and discussed the case with the resident. I agree with the resident's findings and plan as documented. SUBJECTIVE: no events over night . became hypothermic and bear hugger was placed OBJECTIVE: NAD , not responsive, opens eyes Pupils, round L > R . no facial droop , MMM, trach/vent. Lungs: clear anteriorly . Ext : 3+ pitting edema over legs and arms. Abd: soft, NT, ND , NL BS , 3+ pitting hard edema Skin: Stage 4 decub ulcer, was not examined today ASSESSMENT AND PLAN: 76 y/o man with h/o Anoxic brain injury, chronic hypotension , HLP, COPD , chronic resp failure s/p trach, DM , hypothyroidism and other medical problems , who was brought from a NH due to coffee ground emesis .He was found to be in septic shock. 1-Septic shock: likely source is the decub ulcer. Hypothermia recovered. - Cont ertapenem and zosyn - cont Steroid 50 bid . will decrease tomorrow 2- Upper GI bleed : resolved. ? stress ulcer, VS PUD - po ppi 3- DIC: due to severe sepsis . monitor coags . Labs pending for today - will transfuse blood products as needed ( fibrinogen < 100 , Hb < 7 , PLt < 20 ) 4- Hypernatremia . cont increased free water with TF. it it worsens tomorrow , will increase free water further. 5- ESRD: - cont HD. 6- Hyperglycemia . COnt SSI q 6hr .sugar improved 7- Sinus bradycardia : with episodes of PAF. - not a candidate for BB or AC at this point 8- Hypernatremia : if Na is still high today, will increase free water dispo : HLOC Full code per family wishes.
[2016-11-21 15:37] LABS: MEAN PLT VOLUME 12.8 fl (7.5-11.1); PLATELET COUNT 40 K/MM3 (134-434); RDW 21.4 % (11.9-15.9); WHITE BLOOD COUNT 3.7 K/mm3 (4.0-10.0)
--- NOTE | 2016-11-21 15:55 | PN ---
Progress Note, Physician History of Present Illness: Pt seen and examined at bedside. He is currently getting HD. No new events. - Current Medication List Current Medications: Active Medications Amino Acids (Prosource No Carb Liquid Pkt) 30 ml PO BID@0800,1730 [facility] Last Admin: 11/21/16 09:15 Dose: 30 ml Bacitracin (Bacitracin -) 1 applic TP DAILY [facility] Last Admin: 11/21/16 11:53 Dose: 1 applic Collagenase (Santyl -) 1 applic TP DAILY [facility] Last Admin: 11/21/16 11:45 Dose: 1 applic Hydrocortisone Sodium Succinate (Solu-Cortef -) 50 mg IVPB BID [facility] Piperacillin Sod/Tazobactam Sod (Zosyn 2.25gm Ivpb (Pre-Docked)) 50 mls @ 100 mls/hr IVPB Q8H-IV [facility]EVEN PRN Reason: Protocol Last Admin: 11/21/16 09:15 Dose: 100 mls/hr Ertapenem 1 gm/ Sodium (Chloride) 50 mls @ 100 mls/hr IVPB DAILY [facility] PRN Reason: Protocol Last Admin: 11/21/16 13:40 Dose: 100 mls/hr Insulin Aspart (Novolog Vial Sliding Scale -) 1 vial SQ Q6HPO [facility]EVEN PRN Reason: Protocol Last Admin: 11/21/16 12:10 Dose: 6 units Ketoconazole (Nizoral 2% Cream -) 1 applic TP DAILY [facility] Last Admin: 11/21/16 11:45 Dose: 1 applic Morphine Sulfate (Morphine Injection -) 2 mg IVPUSH Q6H PRN PRN Reason: PAIN Pantoprazole Sodium (Protonix Packets For Oral Suspension -) 40 mg NGT DAILY [facility] Last Admin: 11/21/16 11:53 Dose: 40 mg Potassium Chloride (Kcl Oral Solution -) 20 meq PO DAILY [facility] Last Admin: 11/21/16 11:53 Dose: 20 meq Potassium Phos/Sodium Phos (Phos-Nak Packet -) 1 packet PO BID [facility] Last Admin: 11/21/16 11:53 Dose: 1 packet - Objective Vital Signs: Vital Signs Temperature 97.7 F 11/21/16 14:31 Pulse Rate 61 11/21/16 15:00 Respiratory Rate 12 11/21/16 15:00 Blood Pressure 80/51 11/21/16 15:00 O2 Sat by Pulse Oximetry (%) 96 11/21/16 10:16 Constitutional: Yes: Calm Eyes: Yes: Conjunctiva Clear HENT: Yes: Atraumatic Neck: Yes: Supple Cardiovascular: Yes: S1, S2 Respiratory: Yes: Mechanically Ventilated Gastrointestinal: Yes: Normal Bowel Sounds, Soft Genitourinary: Yes: Anuria Musculoskeletal: Yes: Muscle Weakness Edema: Yes (anasarca) Neurological: Yes: Pre-Existing Deficit Labs: CBC, BMP 11/21/16 13:00 INR, PTT INR 1.43 (0.82-1.09) H 11/20/16 06:15 Fibrinogen 190.0 mg/dL (238-498) L 11/20/16 06:15 Problem List - Problems (1) GORDON (acute kidney injury) Code(s): N17.9 - ACUTE KIDNEY FAILURE, UNSPECIFIED (2) Anasarca Code(s): R60.1 - GENERALIZED EDEMA (3) Anemia Code(s): D64.9 - ANEMIA, UNSPECIFIED (4) CHF (congestive heart failure) Code(s): I50.9 - HEART FAILURE, UNSPECIFIED (5) CKD (chronic kidney disease) Code(s): N18.9 - CHRONIC KIDNEY DISEASE, UNSPECIFIED (6) Fluid overload Code(s): E87.70 - FLUID OVERLOAD, UNSPECIFIED (7) History of CVA (cerebrovascular accident) Code(s): Z86.73 - PRSNL HX OF TIA (TIA), AND CEREB INFRC W/O RESID DEFICITS Assessment/Plan Current Medications Generic Name Dose Route Start Last Admin Trade Name Freq PRN Reason Stop Dose Admin Amino Acids 30 ml 11/16/16 08:00 11/21/16 09:15 Prosource No Carb Liquid Pkt PO 30 ml BID@0800,1730 STEVEN Administration Bacitracin 1 applic 11/18/16 12:47 11/21/16 11:53 Bacitracin - TP 1 applic DAILY STEVEN Administration Collagenase 1 applic 11/15/16 15:24 11/21/16 11:45 Santyl - TP 1 applic DAILY STEVEN Administration Hydrocortisone Sodium Succinate 50 mg 11/21/16 22:00 Solu-Cortef - IVPB BID STEVEN Piperacillin Sod/Tazobactam Sod 50 mls @ 100 mls/hr 11/16/16 12:15 11/21/16 09: 15 Zosyn 2.25gm Ivpb (Pre-Docked) IVPB 100 mls/hr Q8H-IV STEVEN Administration Protocol Ertapenem 1 gm/ Sodium 50 mls @ 100 mls/hr 11/17/16 17:00 11/21/16 13:40 Chloride IVPB 100 mls/hr DAILY STEVEN Administration Protocol Insulin Aspart 1 vial 11/19/16 12:37 11/21/16 12:10 Novolog Vial Sliding Scale - SQ 6 units Q6HPO STEVEN Administration Protocol Ketoconazole 1 applic 11/16/16 10:00 11/21/16 11:45 Nizoral 2% Cream - TP 1 applic DAILY [facility] Administration Morphine Sulfate 2 mg 11/17/16 16:40 Morphine Injection - IVPUSH Q6H PRN PAIN Pantoprazole Sodium 40 mg 11/20/16 10:00 11/21/16 11:53 Protonix Packets For Oral Suspension - NGT 40 mg DAILY [facility] Administration Potassium Chloride 20 meq 11/20/16 10:00 11/21/16 11:53 Kcl Oral Solution - PO 20 meq DAILY [facility]EV[facility] Administration Potassium Phos/Sodium Phos 1 packet 11/19/16 11:15 11/21/16 11:53 Phos-Nak Packet - PO 1 packet BID STEVEN Administration Impression 1. ESRD 2. hypotension 3. chronic respiratory failure 4. sepsis 5. Anemia 6. GI bleed 7. CVA 8. DM 9. Hypothyroidism 10. pancytopenia Plan - follow up labs - check phos - HD today - epogen for anemia - slow steroid taper - monitor BP - overall prognosis is poor - will follow Dr Mireles
[2016-11-21 16:08] LABS: CREATININE 2.3 mg/dL (0.7-1.3); PHOSPHOROUS 4.4 mg/dL (2.5-4.9)
[2016-11-21 16:17] LABS: CALCIUM 6.6 mg/dL (8.5-10.1)
[2016-11-21 19:26] LABS: PLATELET ESTIMATE MOD DECREASED (NORMAL)
[2016-11-21 19:27] LABS: ANISOCYTOSIS 2+
[2016-11-21] MEDS ORDERED: PT OWN MED DRAWER 7, Y5N ONE (22:32)
[2016-11-22] MEDS: PIPERACILLIN/TAZOB 2.25 GM 50 ML IVPB SCH ×3 (02:23→18:03)
[2016-11-22] MEDS: INSULIN SLIDING SCALE (NOVOLOG) 1 VIAL SQ SCH ×4 (06:32→23:03)
[2016-11-22] MEDS ORDERED: PT OWN MED DRAWER 7, Y5N ONE ×3 (08:15→22:44)
[2016-11-22] MEDS: AMINO ACIDS/PROTEIN HYDROLYS 30 ML LIQUID.PKT PO SCH ×2 (08:20→18:03)
[2016-11-22 08:40] LABS: MCH 30.4 pg (25.7-33.7); MCHC 33.4 g/dl (32.0-35.9); MEAN CELL VOLUME 91.1 fl (80-96); MEAN PLT VOLUME 11.1 fl (7.5-11.1); RDW 20.5 % (11.9-15.9); WHITE BLOOD COUNT 3.5 K/mm3 (4.0-10.0)
[2016-11-22] MEDS: POTASSIUM CHLORIDE 40 MEQ/30 ML UNIT DOSE CUP PO SCH (09:01)
[2016-11-22] MEDS: ERTAPENEM SODIUM 1 GM in SODIUM CHLORIDE 50 ML IVPB SCH (09:01)
[2016-11-22] MEDS: BACITRACIN 30 GM TUBE TOPICAL OINTMENT TP SCH (09:01)
[2016-11-22] MEDS: PANTOPRAZOLE SOD 40 MG SUSPENSION PACKET NGT SCH (09:02)
[2016-11-22] MEDS: NAPH,MB-DB/K PH,MBDB POWDER PACKET PO SCH ×2 (09:02→22:48)
[2016-11-22] MEDS: HYDROCORTISONE SOD SUCCINATE 100 MG/2 ML VIAL IVPB SCH ×2 (09:25→22:49)
[2016-11-22] MEDS: KETOCONAZOLE 2% CREAM - 60GM TUBE TP SCH (09:26)
[2016-11-22 09:30] LABS: PLATELET COUNT 33 K/MM3 (134-434)
[2016-11-22 09:51] LABS: ALBUMIN 2.1 g/dl (3.4-5.0); CALCIUM 7.5 mg/dL (8.5-10.1); MAGNESIUM 1.9 mg/dL (1.8-2.4)
[2016-11-22] MEDS: COLLAGENASE CLOSTRIDIUM HIST. 30 GRAMS TUBE TP SCH (11:12)
--- NOTE | 2016-11-22 12:33 | PN ---
Progress Note (short form) - Note Progress Note: PULMONARY Vented on volume assist control with 40% fiO2. Growing gram positive cocci in blood culture. Last Vital Signs Temp Pulse Resp BP Pulse Ox 97.4 F L 63 18 104/43 98 11/22/16 06:00 11/22/16 06:00 11/22/16 11:04 11/22/16 06:00 11/21/16 23:00 Gen: vented, poorly responsive Heart: RRR Lung: scattered rhonchi Abd: soft, nontender Ext: multiple ulcers CBC, BMP 11/22/16 07:00 11/22/16 07:00 Active Medications Amino Acids (Prosource No Carb Liquid Pkt) 30 ml PO BID@0800,1730 [facility] Last Admin: 11/22/16 08:20 Dose: 30 ml Bacitracin (Bacitracin -) 1 applic TP DAILY [facility] Last Admin: 11/22/16 09:01 Dose: 1 applic Collagenase (Santyl -) 1 applic TP DAILY [facility] Last Admin: 11/22/16 11:12 Dose: 1 applic Hydrocortisone Sodium Succinate (Solu-Cortef -) 50 mg IVPB BID [facility] Last Admin: 11/22/16 09:25 Dose: 50 mg Piperacillin Sod/Tazobactam Sod (Zosyn 2.25gm Ivpb (Pre-Docked)) 50 mls @ 100 mls/hr IVPB Q8H-IV [facility] PRN Reason: Protocol Last Admin: 11/22/16 09:50 Dose: 100 mls/hr Ertapenem 1 gm/ Sodium (Chloride) 50 mls @ 100 mls/hr IVPB DAILY [facility] PRN Reason: Protocol Last Admin: 11/22/16 09:01 Dose: 100 mls/hr Insulin Aspart (Novolog Vial Sliding Scale -) 1 vial SQ Q6HPO [facility] PRN Reason: Protocol Last Admin: 11/22/16 12:25 Dose: 4 units Ketoconazole (Nizoral 2% Cream -) 1 applic TP DAILY [facility] Last Admin: 11/22/16 09:26 Dose: 1 applic Morphine Sulfate (Morphine Injection -) 2 mg IVPUSH Q6H PRN PRN Reason: PAIN Pantoprazole Sodium (Protonix Packets For Oral Suspension -) 40 mg NGT DAILY [facility] Last Admin: 11/22/16 09:02 Dose: 40 mg Potassium Chloride (Kcl Oral Solution -) 20 meq PO DAILY [facility] Last Admin: 11/22/16 09:01 Dose: 20 meq Potassium Phos/Sodium Phos (Phos-Nak Packet -) 1 packet PO BID [facility] Last Admin: 11/22/16 09:02 Dose: 1 packet A/P Sacral Decubitus Ulcer Infection Gram Positive Bacteremia Septic Shock improving ESRD on HD Chronic Hypotension h/o CVA Anoxic Encephalopathy Anemia Thrombocytopenia - continue antibiotics - wound care - midodrine - HD per renal - poor prognosis for any meaningful recovery, approaching medical futility, recommend palliative care - DVT/GI prophylaxis
--- NOTE | 2016-11-22 13:28 | PN ---
Physical Exam: SUBJECTIVE: Patient seen and examined Patient resting in bed, opening eyes spontaneously, at baseline. No hypothermia overnight. 97.4 w/o john hugger this AM. Off pressors BP stable. HR 60's. Vent settings: 12/450/35%/50/5/4. 100cc loose light brown diarrhea in rectal tube, more solid today. No bleeding. No hematemesis. Anuric. HD yesterday. OBJECTIVE: Vital Signs Period Temp Pulse Resp BP Sys/Vang Pulse Ox Last 24 Hr 97.4 F-97.9 F 49-69 12-19 80-115/43-62 97-98 GENERAL: unresponsive, opens eyes. 3+ anasarca HEAD: Normal with no signs of trauma. EYES: sclera anicteric, conjunctiva clear. ENT: moist mucous membranes. NECK: supple. LUNGS: diffuse ronchi, trach, vent. HEART: Regular rate and rhythm, S1, S2 ABDOMEN: Soft, nondistended, globally reduced bowel sounds, Peg in place, dermatitis around peg EXTREMITIES: 1+ pulses, warm, 3+ edema. b/l pressure ulcers on heels with black echar. clean dressing in place Sacrum: unstageable pressure ulcer with yellow echar, malodorous. NEUROLOGICAL: symmetrical face PSYCH: unable to assess SKIN: Warm, dry Laboratory Results - last 24 hr 11/21/16 11/21/16 11/21/16 13:00 13:00 13:00 WBC 3.7 L RBC 2.82 L Hgb 8.5 L Hct 25.6 L MCV 91.0 MCHC 33.0 RDW 21.4 H Plt Count 40 L D MPV 12.8 H D Platelet Estimate Mod decreased Anisocytosis 2+ Macrocytosis 2+ Fibrinogen 198.0 L Sodium 146 H Potassium 4.1 D Chloride 107 Carbon Dioxide 24 Anion Gap 15 BUN 66 H D Creatinine 2.3 H POC Glucometer Random Glucose 246 H Calcium 6.6 L* Phosphorus 4.4 D Magnesium Albumin 11/21/16 11/21/16 11/22/16 16:05 21:11 06:30 WBC RBC Hgb Hct MCV MCHC RDW Plt Count MPV Platelet Estimate Anisocytosis Macrocytosis Fibrinogen Sodium Potassium Chloride Carbon Dioxide Anion Gap BUN Creatinine POC Glucometer 228 224 255 Random Glucose Calcium Phosphorus Magnesium Albumin 11/22/16 11/22/16 11/22/16 07:00 07:00 12:00 WBC 3.5 L RBC 2.80 L Hgb 8.5 L Hct 25.5 L MCV 91.1 MCHC 33.4 RDW 20.5 H Plt Count 33 L* MPV 11.1 D Platelet Estimate Anisocytosis Macrocytosis Fibrinogen Sodium 146 H Potassium 3.0 L D Chloride 105 Carbon Dioxide 23 Anion Gap 18 H BUN 57 H Creatinine 2.0 H POC Glucometer 241 Random Glucose 235 H Calcium 7.5 L Phosphorus 3.0 D Magnesium 1.9 Albumin 2.1 L D Active Medications Generic Name Dose Route Start Last Admin Trade Name Freq PRN Reason Stop Dose Admin Amino Acids 30 ml 11/16/16 08:00 11/22/16 08:20 Prosource No Carb Liquid Pkt PO 30 ml BID@0800,1730 STEVEN Administration Bacitracin 1 applic 11/18/16 12:47 11/22/16 09:01 Bacitracin - TP 1 applic DAILY STEVEN Administration Collagenase 1 applic 11/15/16 15:24 11/22/16 11:12 Santyl - TP 1 applic DAILY STEVEN Administration Hydrocortisone Sodium Succinate 50 mg 11/21/16 22:00 11/22/16 09:25 Solu-Cortef - IVPB 50 mg BID STEVEN Administration Piperacillin Sod/Tazobactam Sod 50 mls @ 100 mls/hr 11/16/16 12:15 11/22/16 09: 50 Zosyn 2.25gm Ivpb (Pre-Docked) IVPB 100 mls/hr Q8H-IV STEVEN Administration Protocol Ertapenem 1 gm/ Sodium 50 mls @ 100 mls/hr 11/17/16 17:00 11/22/16 09:01 Chloride IVPB 100 mls/hr DAILY STEVEN Administration Protocol Insulin Aspart 1 vial 11/19/16 12:37 11/22/16 12:25 Novolog Vial Sliding Scale - SQ 4 units Q6HPO STEVEN Administration Protocol Ketoconazole 1 applic 11/16/16 10:00 11/22/16 09:26 Nizoral 2% Cream - TP 1 applic DAILY STEVEN Administration Morphine Sulfate 2 mg 11/17/16 16:40 Morphine Injection - IVPUSH Q6H PRN PAIN Pantoprazole Sodium 40 mg 11/20/16 10:00 11/22/16 09:02 Protonix Packets For Oral Suspension - NGT 40 mg DAILY STEVEN Administration Potassium Chloride 20 meq 11/20/16 10:00 11/22/16 09:01 Kcl Oral Solution - PO 20 meq DAILY STEVEN Administration Potassium Phos/Sodium Phos 1 packet 11/19/16 11:15 11/22/16 09:02 Phos-Nak Packet - PO 1 packet BID STEVEN Administration ASSESSMENT/PLAN: This is a 76 yo M with PMH of hypotension, HLD, hypothyroidism, DM, COPD, ESRD, GERD, s/p tracheostomy, s/p gastrostomy presented to ER from [facility] for coffee ground emesis. Septic shock -likley source sacral decubitus ulcer -unstageable ulcer -evaluated by wound care. -no need for debridement at this time, dressing changes. Not healing -Gram Positive Bacteremia. Repeat culture negative -Lactic Acidosis -ID consult appreciated -wound culture: pseudomonas, ESBL -ertapenem day 6 and zosyn d 9 -likely osteo, will need PICC line before d/c -strict I and O (anuric) -If patient remains normotensive, we may d/c to [place] with PICC line tomorrow Dermatitis -on penis, around peg -bacitracin ointment Diarrhea -resolving -likley due to abx treatment -rectal tube -C diff toxin negative x 2 Hypothermia -john hugger PRN ESRD on HD -HD yesterday -nephro consult appreciated Chronic Hypotension -weaned off levophed -weaned off dopamine -if hypotensive again can start dopamine at steady rate of 5 -hydrocortisone 50 bid d 2 Acute on chronic Anemia -aggravated by GIB -coffee ground emesis resolved -total 3u pRBC this admission -hgb stable -monitor h/h -epogen -IV PPI BID DIC -due to sepsis -fibrinogen trending up -trend coags -Heme consult apprecited -no active bleed -Platelets 30's DM -BGM q6 -sliding scale Anoxic Encephalopathy -unresponsive -unlikely to have meaningful recovery -grave prognosis -palliative care consult spoke with family -Family wishes full code due to zoroastrian reasons FEN no IVF replete lytes prn tube feeds. increased free water to 20 Dispo: 5s Problem List - Problems (1) GORDON (acute kidney injury) Code(s): N17.9 - ACUTE KIDNEY FAILURE, UNSPECIFIED (2) Anasarca Code(s): R60.1 - GENERALIZED EDEMA (3) Anemia Code(s): D64.9 - ANEMIA, UNSPECIFIED (4) CHF (congestive heart failure) Code(s): I50.9 - HEART FAILURE, UNSPECIFIED (5) CKD (chronic kidney disease) Code(s): N18.9 - CHRONIC KIDNEY DISEASE, UNSPECIFIED (6) Elevated INR Code(s): R79.1 - ABNORMAL COAGULATION PROFILE (7) Elevated brain natriuretic peptide (BNP) level Code(s): R79.89 - OTHER SPECIFIED ABNORMAL FINDINGS OF BLOOD CHEMISTRY (8) Fluid overload Code(s): E87.70 - FLUID OVERLOAD, UNSPECIFIED (9) History of CVA (cerebrovascular accident) Code(s): Z86.73 - PRSNL HX OF TIA (TIA), AND CEREB INFRC W/O RESID DEFICITS (10) Hypoalbuminemia Code(s): E88.09 - OTH DISORDERS OF PLASMA-PROTEIN METABOLISM, NEC (11) Hypotension Code(s): I95.9 - HYPOTENSION, UNSPECIFIED Qualifiers: Hypotension type: unspecified hypotension type Qualified Code(s): I95.9 - Hypotension, unspecified (12) Passes no urine Code(s): R34 - ANURIA AND OLIGURIA (13) Pressure ulcer Code(s): L89.90 - PRESSURE ULCER OF UNSPECIFIED SITE, UNSPECIFIED STAGE (14) Pressure ulcer of ankle Code(s): L89.509 - PRESSURE ULCER OF UNSPECIFIED ANKLE, UNSPECIFIED STAGE (15) Pressure ulcer of back Code(s): L89.109 - PRESSURE ULCER OF UNSP PART OF BACK, UNSPECIFIED STAGE (16) Sacral decubitus ulcer, stage IV Code(s): L89.154 - PRESSURE ULCER OF SACRAL REGION, STAGE 4 (17) Sepsis Code(s): A41.9 - SEPSIS, UNSPECIFIED ORGANISM Qualifiers: Sepsis type: sepsis due to unspecified organism Qualified Code(s): A41.9 - Sepsis, unspecified organism (18) Septic shock Code(s): A41.9 - SEPSIS, UNSPECIFIED ORGANISM R65.21 - SEVERE SEPSIS WITH SEPTIC SHOCK (19) Thrombocytopenia Code(s): D69.6 - THROMBOCYTOPENIA, UNSPECIFIED (20) Transaminitis Code(s): R74.0 - NONSPEC ELEV OF LEVELS OF TRANSAMNS & LACTIC ACID DEHYDRGNSE (21) Upper GI bleed Code(s): K92.2 - GASTROINTESTINAL HEMORRHAGE, UNSPECIFIED Visit type - Emergency Visit Emergency Visit: Yes ED Registration Date: 11/12/16 Care time: The patient presented to the Emergency Department on the above date and was hospitalized for further evaluation of their emergent condition. - New Patient This patient is new to me today: No - Critical Care Critical Care patient: No - Discharge Referral Referred to [facility] No
[2016-11-22 13:46] LABS: INR 1.52 (0.82-1.09); PROTHROMBIN TIME (PATIENT) 16.9 SEC (9.98-11.88)
--- NOTE | 2016-11-22 14:15 | PN ---
Progress Note, Physician History of Present Illness: Pt seen and examined at bedside. He remains on vent. His blood pressure has been relatively stable and he has been tolerating HD. - Current Medication List Current Medications: Active Medications Amino Acids (Prosource No Carb Liquid Pkt) 30 ml PO BID@0800,1730 [facility] Last Admin: 11/22/16 08:20 Dose: 30 ml Bacitracin (Bacitracin -) 1 applic TP DAILY STEVEN Last Admin: 11/22/16 09:01 Dose: 1 applic Collagenase (Santyl -) 1 applic TP DAILY STEVEN Last Admin: 11/22/16 11:12 Dose: 1 applic Hydrocortisone Sodium Succinate (Solu-Cortef -) 50 mg IVPB BID STEVEN Last Admin: 11/22/16 09:25 Dose: 50 mg Piperacillin Sod/Tazobactam Sod (Zosyn 2.25gm Ivpb (Pre-Docked)) 50 mls @ 100 mls/hr IVPB Q8H-IV STEVEN PRN Reason: Protocol Last Admin: 11/22/16 09:50 Dose: 100 mls/hr Ertapenem 1 gm/ Sodium (Chloride) 50 mls @ 100 mls/hr IVPB DAILY STEVEN PRN Reason: Protocol Last Admin: 11/22/16 09:01 Dose: 100 mls/hr Insulin Aspart (Novolog Vial Sliding Scale -) 1 vial SQ Q6HPO STEVEN PRN Reason: Protocol Last Admin: 11/22/16 12:25 Dose: 4 units Ketoconazole (Nizoral 2% Cream -) 1 applic TP DAILY [facility] Last Admin: 11/22/16 09:26 Dose: 1 applic Morphine Sulfate (Morphine Injection -) 2 mg IVPUSH Q6H PRN PRN Reason: PAIN Pantoprazole Sodium (Protonix Packets For Oral Suspension -) 40 mg NGT DAILY [facility] Last Admin: 11/22/16 09:02 Dose: 40 mg Potassium Chloride (Kcl Oral Solution -) 20 meq PO DAILY [facility] Last Admin: 11/22/16 09:01 Dose: 20 meq Potassium Phos/Sodium Phos (Phos-Nak Packet -) 1 packet PO BID [facility] Last Admin: 11/22/16 09:02 Dose: 1 packet - Objective Vital Signs: Vital Signs Temperature 97.4 F L 11/22/16 06:00 Pulse Rate 63 11/22/16 06:00 Respiratory Rate 18 11/22/16 11:04 Blood Pressure 104/43 11/22/16 06:00 O2 Sat by Pulse Oximetry (%) 98 11/21/16 23:00 Constitutional: Yes: Calm Eyes: Yes: Conjunctiva Clear HENT: Yes: Atraumatic Cardiovascular: Yes: S1, S2 Respiratory: Yes: Mechanically Ventilated Gastrointestinal: Yes: Soft Genitourinary: Yes: Anuria Musculoskeletal: Yes: Muscle Weakness Edema: Yes (anasarca) Neurological: Yes: Pre-Existing Deficit Labs: CBC, BMP 11/22/16 07:00 11/22/16 07:00 INR, PTT INR 1.43 (0.82-1.09) H 11/20/16 06:15 Fibrinogen 198.0 mg/dL (238-498) L 11/21/16 13:00 Problem List - Problems (1) GORDON (acute kidney injury) Code(s): N17.9 - ACUTE KIDNEY FAILURE, UNSPECIFIED (2) Anasarca Code(s): R60.1 - GENERALIZED EDEMA (3) Anemia Code(s): D64.9 - ANEMIA, UNSPECIFIED (4) CHF (congestive heart failure) Code(s): I50.9 - HEART FAILURE, UNSPECIFIED (5) CKD (chronic kidney disease) Code(s): N18.9 - CHRONIC KIDNEY DISEASE, UNSPECIFIED (6) Fluid overload Code(s): E87.70 - FLUID OVERLOAD, UNSPECIFIED (7) History of CVA (cerebrovascular accident) Code(s): Z86.73 - PRSNL HX OF TIA (TIA), AND CEREB INFRC W/O RESID DEFICITS Assessment/Plan Current Medications Generic Name Dose Route Start Last Admin Trade Name Freq PRN Reason Stop Dose Admin Amino Acids 30 ml 11/16/16 08:00 11/22/16 08:20 Prosource No Carb Liquid Pkt PO 30 ml BID@0800,1730 STEVEN Administration Bacitracin 1 applic 11/18/16 12:47 11/22/16 09:01 Bacitracin - TP 1 applic DAILY STEVEN Administration Collagenase 1 applic 11/15/16 15:24 11/22/16 11:12 Santyl - TP 1 applic DAILY STEVEN Administration Hydrocortisone Sodium Succinate 50 mg 11/21/16 22:00 11/22/16 09:25 Solu-Cortef - IVPB 50 mg BID STEVEN Administration Piperacillin Sod/Tazobactam Sod 50 mls @ 100 mls/hr 11/16/16 12:15 11/22/16 09: 50 Zosyn 2.25gm Ivpb (Pre-Docked) IVPB 100 mls/hr Q8H-IV STEVEN Administration Protocol Ertapenem 1 gm/ Sodium 50 mls @ 100 mls/hr 11/17/16 17:00 11/22/16 09:01 Chloride IVPB 100 mls/hr DAILY STEVEN Administration Protocol Insulin Aspart 1 vial 11/19/16 12:37 11/22/16 12:25 Novolog Vial Sliding Scale - SQ 4 units Q6HPO STEVEN Administration Protocol Ketoconazole 1 applic 11/16/16 10:00 11/22/16 09:26 Nizoral 2% Cream - TP 1 applic DAILY STEVEN Administration Morphine Sulfate 2 mg 11/17/16 16:40 Morphine Injection - IVPUSH Q6H PRN PAIN Pantoprazole Sodium 40 mg 11/20/16 10:00 11/22/16 09:02 Protonix Packets For Oral Suspension - NGT 40 mg DAILY STEVEN Administration Potassium Chloride 20 meq 11/20/16 10:00 11/22/16 09:01 Kcl Oral Solution - PO 20 meq DAILY STEVEN Administration Potassium Phos/Sodium Phos 1 packet 11/19/16 11:15 11/22/16 09:02 Phos-Nak Packet - PO 1 packet BID STEVEN Administration Laboratory Tests 11/22/16 07:00 Phosphorus 3.0 D Magnesium 1.9 Impression 1. ESRD 2. hypotension 3. chronic respiratory failure 4. sepsis 5. Anemia 6. GI bleed 7. CVA 8. DM 9. Hypothyroidism 10. pancytopenia Plan - will arrange for HD in am - cont with steroids with a slow taper - labs reviewed - cont vent support - cont peg feeds, nutrition follow up - epogen for anemia - overall prognosis is poor - wound care to ulcers - will follow Dr Mireles
--- NOTE | 2016-11-22 15:05 | PN ---
Progress Note, Physician History of Present Illness: no new events hypothermia no new events - Current Medication List Current Medications: Active Medications Albumin Human (Albumin Human 25% -) 12.5 gm IVPB Q30M [facility] Amino Acids (Prosource No Carb Liquid Pkt) 30 ml PO BID@0800,1730 [facility] Last Admin: 11/22/16 08:20 Dose: 30 ml Bacitracin (Bacitracin -) 1 applic TP DAILY STEVEN Last Admin: 11/22/16 09:01 Dose: 1 applic Collagenase (Santyl -) 1 applic TP DAILY [facility] Last Admin: 11/22/16 11:12 Dose: 1 applic Epoetin Rigoberto (Epogen -) 5,000 units IVPUSH ONCE ONE Stop: 11/23/16 14:20 Hydrocortisone Sodium Succinate (Solu-Cortef -) 50 mg IVPB BID [facility] Last Admin: 11/22/16 09:25 Dose: 50 mg Piperacillin Sod/Tazobactam Sod (Zosyn 2.25gm Ivpb (Pre-Docked)) 50 mls @ 100 mls/hr IVPB Q8H-IV STEVEN PRN Reason: Protocol Last Admin: 11/22/16 09:50 Dose: 100 mls/hr Ertapenem 1 gm/ Sodium (Chloride) 50 mls @ 100 mls/hr IVPB DAILY STEVEN PRN Reason: Protocol Last Admin: 11/22/16 09:01 Dose: 100 mls/hr Insulin Aspart (Novolog Vial Sliding Scale -) 1 vial SQ Q6HPO STEVEN PRN Reason: Protocol Last Admin: 11/22/16 12:25 Dose: 4 units Ketoconazole (Nizoral 2% Cream -) 1 applic TP DAILY [facility] Last Admin: 11/22/16 09:26 Dose: 1 applic Morphine Sulfate (Morphine Injection -) 2 mg IVPUSH Q6H PRN PRN Reason: PAIN Pantoprazole Sodium (Protonix Packets For Oral Suspension -) 40 mg NGT DAILY [facility] Last Admin: 11/22/16 09:02 Dose: 40 mg Potassium Chloride (Kcl Oral Solution -) 20 meq PO DAILY [facility] Last Admin: 11/22/16 09:01 Dose: 20 meq Potassium Phos/Sodium Phos (Phos-Nak Packet -) 1 packet PO BID [facility] Last Admin: 11/22/16 09:02 Dose: 1 packet - Objective Vital Signs: Vital Signs Temperature 97.4 F L 11/22/16 06:00 Pulse Rate 63 11/22/16 06:00 Respiratory Rate 15 11/22/16 14:17 Blood Pressure 104/43 11/22/16 06:00 O2 Sat by Pulse Oximetry (%) 98 11/21/16 23:00 Constitutional: Yes: No Distress, Calm Cardiovascular: Yes: Regular Rate and Rhythm Respiratory: Yes: Regular, CTA Bilaterally Gastrointestinal: Yes: Normal Bowel Sounds, Soft, Other (peg in place) Musculoskeletal: Yes: Other Extremities: Yes: Other Integumentary: Yes: Other (multiple pressure ulcers) Neurological: Yes: Other (opens eyes) Labs: CBC, BMP 11/22/16 07:00 11/22/16 07:00 INR, PTT INR 1.52 (0.82-1.09) H 11/22/16 12:26 Fibrinogen 173.0 mg/dL (238-498) L 11/22/16 12:26 Assessment/Plan decubitus ulcer multiple pressure ulcer infected peg tube site septic shock lactic acidosis hypotension hypthermia esrd cva gram positive bacteremia rash patient being applied ketaconozole plan continue current mgmt continue abx
--- NOTE | 2016-11-22 18:41 | PN ---
Teaching Attending Note Name of Resident: Ros Dias ATTENDING PHYSICIAN STATEMENT I saw and evaluated the patient. I reviewed the resident's note and discussed the case with the resident. I agree with the resident's findings and plan as documented. SUBJECTIVE: unable to obtain hx . OBJECTIVE: NAD , not responsive, opens eyes Pupils, round L > R . no facial droop , MMM, trach/vent. Lungs: clear anteriorly . Ext : 3+ pitting edema over legs and arms. black scabs on multiple places on feet. Abd: soft, NT, ND , NL BS , 3+ pitting hard edema Skin: Stage 4 decub ulcer,with slough , and stage 3 decub on mid back. ASSESSMENT AND PLAN: 76 y/o man with h/o Anoxic brain injury, chronic hypotension , HLP, COPD , chronic resp failure s/p trach, DM , hypothyroidism and other medical problems , who was brought from a NH due to coffee ground emesis .He was found to be in septic shock. 1-Septic shock: likely source is the decub ulcer. Hypothermia recovered. - Cont ertapenem and zosyn - Decrease steroids to 25 mg bId 2- Upper GI bleed : resolved. ? stress ulcer, VS PUD - Po ppi 3- DIC: due to severe sepsis. monitor coags. - will transfuse blood products as needed ( fibrinogen < 100 , Hb < 7 , PLt < 20 ) 4- Hypernatremia . cont increased free water with TF. 5- ESRD: - cont HD. 6- Hyperglycemia . COnt SSI q 6hr . 7- Sinus bradycardia : with episodes of PAF. - not a candidate for BB or AC at this point 8- Hypernatremia :monitor . increase free water through TF if needed Dispo : HLOC
[2016-11-22] MEDS: BANATROL PLUS POWDER PACKET PEG SCH (22:48)
[2016-11-23] MEDS: PIPERACILLIN/TAZOB 2.25 GM 50 ML IVPB SCH ×3 (01:29→17:05)
[2016-11-23] MEDS ORDERED: PT OWN MED DRAWER 7, Y5N ONE ×2 (06:16→20:20)
[2016-11-23] MEDS: INSULIN SLIDING SCALE (NOVOLOG) 1 VIAL SQ SCH ×3 (06:27→23:02)
[2016-11-23] MEDS: AMINO ACIDS/PROTEIN HYDROLYS 30 ML LIQUID.PKT PO SCH ×2 (08:00→17:56)
[2016-11-23 08:29] LABS: MCH 30.4 pg (25.7-33.7); MCHC 32.9 g/dl (32.0-35.9); MEAN CELL VOLUME 92.2 fl (80-96); MEAN PLT VOLUME 10.9 fl (7.5-11.1); RDW 21.8 % (11.9-15.9); WHITE BLOOD COUNT 2.8 K/mm3 (4.0-10.0)
[2016-11-23 08:37] LABS: INR 1.36 (0.82-1.09); PROTHROMBIN TIME (PATIENT) 15.1 SEC (9.98-11.88)
[2016-11-23 08:51] LABS: CALCIUM 7.1 mg/dL (8.5-10.1); MAGNESIUM 1.9 mg/dL (1.8-2.4); PHOSPHOROUS 3.5 mg/dL (2.5-4.9)
[2016-11-23 09:13] LABS: PLATELET COUNT 31 K/MM3 (134-434)
[2016-11-23] MEDS ORDERED: POTASSIUM CHLORIDE 40 MEQ/30 ML UNIT DOSE CUP PEG ONE (09:52)
[2016-11-23] MEDS: NAPH,MB-DB/K PH,MBDB POWDER PACKET PO SCH ×2 (10:00→23:06)
[2016-11-23] MEDS ORDERED: POTASSIUM CHLORIDE 10 MEQ PREMIX IVPB (POTASSIUM RIDER) IVPB SCH ×2 (10:00→11:30)
[2016-11-23] MEDS: ERTAPENEM SODIUM 1 GM in SODIUM CHLORIDE 50 ML IVPB SCH (11:28)
[2016-11-23] MEDS: HYDROCORTISONE SOD SUCCINATE 100 MG/2 ML VIAL IVPB SCH ×2 (11:29→23:06)
--- NOTE | 2016-11-23 11:49 | PN ---
Progress Note, Physician History of Present Illness: Pt seen and examined at bedside. He was hypothermic and is now on a warming blanket. He remains intubated. - Current Medication List Current Medications: Active Medications Albumin Human (Albumin Human 25% -) 12.5 gm IVPB Q30M [facility] Amino Acids (Prosource No Carb Liquid Pkt) 30 ml PO BID@0800,1730 [facility] Last Admin: 11/22/16 18:03 Dose: 30 ml Bacitracin (Bacitracin -) 1 applic TP DAILY STEVEN Last Admin: 11/22/16 09:01 Dose: 1 applic Collagenase (Santyl -) 1 applic TP DAILY [facility] Last Admin: 11/22/16 11:12 Dose: 1 applic Epoetin Rigoberto (Epogen -) 5,000 units IVPUSH ONCE ONE Stop: 11/23/16 14:20 Hydrocortisone Sodium Succinate (Solu-Cortef -) 25 mg IVPB BID [facility] Last Admin: 11/23/16 11:29 Dose: 25 mg Piperacillin Sod/Tazobactam Sod (Zosyn 2.25gm Ivpb (Pre-Docked)) 50 mls @ 100 mls/hr IVPB Q8H-IV STEVEN PRN Reason: Protocol Last Admin: 11/23/16 11:29 Dose: 100 mls/hr Ertapenem 1 gm/ Sodium (Chloride) 50 mls @ 100 mls/hr IVPB DAILY [facility] PRN Reason: Protocol Last Admin: 11/23/16 11:28 Dose: 100 mls/hr Insulin Aspart (Novolog Vial Sliding Scale -) 1 vial SQ Q6HPO STEVEN PRN Reason: Protocol Last Admin: 11/23/16 06:27 Dose: 2 units Ketoconazole (Nizoral 2% Cream -) 1 applic TP DAILY [facility] Last Admin: 11/22/16 09:26 Dose: 1 applic Morphine Sulfate (Morphine Injection -) 2 mg IVPUSH Q6H PRN PRN Reason: PAIN Nystatin (Mycostatin Cream -) 1 applic TP BID [facility] Pantoprazole Sodium (Protonix Packets For Oral Suspension -) 40 mg NGT DAILY [facility] Last Admin: 11/22/16 09:02 Dose: 40 mg Potassium Chloride (Kcl Oral Solution -) 20 meq PO DAILY [facility] Last Admin: 11/22/16 09:01 Dose: 20 meq Potassium Chloride (Potassium Chloride 10 Meq Premix Ivpb -) 10 meq IVPB Q1H STEVEN Stop: 11/23/16 12:31 Potassium Phos/Sodium Phos (Phos-Nak Packet -) 1 packet PO BID STEVEN Last Admin: 11/22/16 22:48 Dose: 1 packet - Objective Vital Signs: Vital Signs Temperature 94.2 F L 11/23/16 10:46 Pulse Rate 73 11/23/16 08:15 Respiratory Rate 13 11/23/16 08:15 Blood Pressure 116/49 11/23/16 08:15 O2 Sat by Pulse Oximetry (%) 98 11/23/16 09:00 Constitutional: Yes: Calm Neck: Yes: WNL Cardiovascular: Yes: S1, S2 Respiratory: Yes: Mechanically Ventilated Gastrointestinal: Yes: Other (peg) Genitourinary: Yes: Anuria Musculoskeletal: Yes: Muscle Weakness Edema: Yes (anasarca) Integumentary: Yes: Pressure Ulcer Neurological: Yes: Lethargy Labs: CBC, BMP 11/23/16 07:40 11/23/16 07:40 INR, PTT INR 1.36 (0.82-1.09) H 11/23/16 07:40 Fibrinogen 233.0 mg/dL (238-498) L D 11/23/16 07:40 Problem List - Problems (1) GORDON (acute kidney injury) Code(s): N17.9 - ACUTE KIDNEY FAILURE, UNSPECIFIED (2) Anasarca Code(s): R60.1 - GENERALIZED EDEMA (3) Anemia Code(s): D64.9 - ANEMIA, UNSPECIFIED (4) CHF (congestive heart failure) Code(s): I50.9 - HEART FAILURE, UNSPECIFIED (5) CKD (chronic kidney disease) Code(s): N18.9 - CHRONIC KIDNEY DISEASE, UNSPECIFIED (6) Fluid overload Code(s): E87.70 - FLUID OVERLOAD, UNSPECIFIED (7) History of CVA (cerebrovascular accident) Code(s): Z86.73 - PRSNL HX OF TIA (TIA), AND CEREB INFRC W/O RESID DEFICITS Assessment/Plan Current Medications Generic Name Dose Route Start Last Admin Trade Name Freq PRN Reason Stop Dose Admin Albumin Human 12.5 gm 11/23/16 14:30 Albumin Human 25% - IVPB Q30M [facility] Amino Acids 30 ml 11/16/16 08:00 11/22/16 18:03 Prosource No Carb Liquid Pkt PO 30 ml BID@0800,1730 STEVEN Administration Bacitracin 1 applic 11/18/16 12:47 11/22/16 09:01 Bacitracin - TP 1 applic DAILY STEVEN Administration Collagenase 1 applic 11/15/16 15:24 11/22/16 11:12 Santyl - TP 1 applic DAILY STEVEN Administration Epoetin Rigoberto 5,000 units 11/23/16 14:19 Epogen - IVPUSH 11/23/16 14:20 ONCE ONE Hydrocortisone Sodium Succinate 25 mg 11/22/16 22:00 11/23/16 11:29 Solu-Cortef - IVPB 25 mg BID STEVEN Administration Piperacillin Sod/Tazobactam Sod 50 mls @ 100 mls/hr 11/16/16 12:15 11/23/16 11: 29 Zosyn 2.25gm Ivpb (Pre-Docked) IVPB 100 mls/hr Q8H-IV STEVEN Administration Protocol Ertapenem 1 gm/ Sodium 50 mls @ 100 mls/hr 11/17/16 17:00 11/23/16 11:28 Chloride IVPB 100 mls/hr DAILY STEVEN Administration Protocol Insulin Aspart 1 vial 11/19/16 12:37 11/23/16 06:27 Novolog Vial Sliding Scale - SQ 2 units Q6HPO STEVEN Administration Protocol Ketoconazole 1 applic 11/16/16 10:00 11/22/16 09:26 Nizoral 2% Cream - TP 1 applic DAILY STEVEN Administration Morphine Sulfate 2 mg 11/17/16 16:40 Morphine Injection - IVPUSH Q6H PRN PAIN Nystatin 1 applic 11/23/16 11:30 Mycostatin Cream - TP BID STEVEN Pantoprazole Sodium 40 mg 11/20/16 10:00 11/22/16 09:02 Protonix Packets For Oral Suspension - NGT 40 mg DAILY STEVEN Administration Potassium Chloride 20 meq 11/20/16 10:00 11/22/16 09:01 Kcl Oral Solution - PO 20 meq DAILY STEVEN Administration Potassium Chloride 10 meq 11/23/16 11:30 Potassium Chloride 10 Meq Premix Ivpb - IVPB 11/23/16 12:31 Q1H STEVEN Potassium Phos/Sodium Phos 1 packet 11/19/16 11:15 11/22/16 22:48 Phos-[place] Packet - PO 1 packet BID STEVEN Administration Impression 1. ESRD 2. hypotension 3. chronic respiratory failure 4. sepsis 5. Anemia 6. GI bleed 7. CVA 8. DM 9. Hypothyroidism 10. pancytopenia Plan - HD today - BP is stable - steroid taper - cont PEG feeds as tolerated - epogen for anemia - overall prognosis is poor - wound care to ulcers - will follow Dr Mireles
[2016-11-23] MEDS: ALBUMIN HUMAN 25% 100 ML VIAL IVPB SCH ×6 (12:30→23:04)
[2016-11-23] MEDS ORDERED: EPOETIN ALFA 3,000 UNIT, EPOETIN ALFA 2,000 UNIT IVPUSH ONE (12:45)
[2016-11-23] MEDS: NYSTATIN 100,000 UNIT/GM TOPICAL CREAM 15 GM TUBE TP SCH ×2 (13:00→23:05)
--- NOTE | 2016-11-23 13:33 | PN ---
Physical Exam: SUBJECTIVE: Patient seen and examined Patient resting in bed, opening eyes spontaneously, at baseline. 89F on john hugger this AM. Off pressors BP stable. HR 60's. Vent settings: 12/450/35%/50/5 /4. Nurse informed that PEG was leaking so tube feeds were stopped. Stated abd is more distended. 100cc loose light brown diarrhea in rectal tube, more solid today. No bleeding. No hematemesis. Anuric. HD today. OBJECTIVE: Vital Signs Period Temp Pulse Resp BP Sys/Vang Pulse Ox Last 24 Hr 94.2 F-97.4 F 50-88 12-19 84-160/49-88 95-98 GENERAL: unresponsive, opens eyes. 3+ anasarca HEAD: Normal with no signs of trauma. EYES: sclera anicteric, conjunctiva clear. ENT: moist mucous membranes. NECK: supple. LUNGS: diffuse ronchi, trach, vent. HEART: Regular rate and rhythm, S1, S2 ABDOMEN: Soft, mildly distended, globally reduced bowel sounds, feels hard because of edema (baseline) Peg in place, dermatitis around peg EXTREMITIES: 1+ pulses, warm, 3+ edema. b/l pressure ulcers on heels with black echar. clean dressing in place Sacrum: unstageable pressure ulcer with yellow echar, malodorous. NEUROLOGICAL: symmetrical face PSYCH: unable to assess SKIN: Warm, dry Laboratory Results - last 24 hr 11/16/16 11/22/16 11/22/16 22:45 12:26 18:06 WBC RBC Hgb Hct MCV MCHC RDW Plt Count MPV INR 1.52 H Fibrinogen 173.0 L Sodium Potassium Chloride Carbon Dioxide Anion Gap BUN Creatinine POC Glucometer 232 Random Glucose Calcium Phosphorus Magnesium Crossmatch See Detail 11/22/16 11/23/16 11/23/16 23:02 06:01 07:40 WBC 2.8 L RBC 3.02 L Hgb 9.2 L Hct 27.8 L MCV 92.2 MCHC 32.9 RDW 21.8 H Plt Count 31 L* MPV 10.9 INR Fibrinogen Sodium Potassium Chloride Carbon Dioxide Anion Gap BUN Creatinine POC Glucometer 184 188 Random Glucose Calcium Phosphorus Magnesium Crossmatch 11/23/16 11/23/16 11/23/16 07:40 07:40 11:31 WBC RBC Hgb Hct MCV MCHC RDW Plt Count MPV INR 1.36 H Fibrinogen 233.0 L D Sodium 144 Potassium 2.9 L* Chloride 104 Carbon Dioxide 25 Anion Gap 15 BUN 66 H Creatinine 2.0 H POC Glucometer 153 Random Glucose 172 H D Calcium 7.1 L Phosphorus 3.5 Magnesium 1.9 Crossmatch Active Medications Generic Name Dose Route Start Last Admin Trade Name Freq PRN Reason Stop Dose Admin Albumin Human 12.5 gm 11/23/16 12:45 11/23/16 13:01 Albumin Human 25% - IVPB 12.5 gm Q30M STEVEN Administration Amino Acids 30 ml 11/16/16 08:00 11/22/16 18:03 Prosource No Carb Liquid Pkt PO 30 ml BID@0800,1730 STEVEN Administration Bacitracin 1 applic 11/18/16 12:47 11/22/16 09:01 Bacitracin - TP 1 applic DAILY STEVEN Administration Collagenase 1 applic 11/15/16 15:24 11/22/16 11:12 Santyl - TP 1 applic DAILY STEVEN Administration Hydrocortisone Sodium Succinate 25 mg 11/22/16 22:00 11/23/16 11:29 Solu-Cortef - IVPB 25 mg BID STEVEN Administration Piperacillin Sod/Tazobactam Sod 50 mls @ 100 mls/hr 11/16/16 12:15 11/23/16 11: 29 Zosyn 2.25gm Ivpb (Pre-Docked) IVPB 100 mls/hr Q8H-IV STEVEN Administration Protocol Ertapenem 1 gm/ Sodium 50 mls @ 100 mls/hr 11/17/16 17:00 11/23/16 11:28 Chloride IVPB 100 mls/hr DAILY STEVEN Administration Protocol Insulin Aspart 1 vial 11/19/16 12:37 11/23/16 06:27 Novolog Vial Sliding Scale - SQ 2 units Q6HPO STEVEN Administration Protocol Ketoconazole 1 applic 11/16/16 10:00 11/22/16 09:26 Nizoral 2% Cream - TP 1 applic DAILY STEVEN Administration Morphine Sulfate 2 mg 11/17/16 16:40 Morphine Injection - IVPUSH Q6H PRN PAIN Nystatin 1 applic 11/23/16 11:30 Mycostatin Cream - TP BID STEVEN Pantoprazole Sodium 40 mg 11/20/16 10:00 11/22/16 09:02 Protonix Packets For Oral Suspension - NGT 40 mg DAILY STEVEN Administration Potassium Chloride 20 meq 11/20/16 10:00 11/22/16 09:01 Kcl Oral Solution - PO 20 meq DAILY STEVEN Administration Potassium Phos/Sodium Phos 1 packet 11/19/16 11:15 11/22/16 22:48 Phos-Nak Packet - PO 1 packet BID STEVEN Administration ASSESSMENT/PLAN: This is a 76 yo M with PMH of hypotension, HLD, hypothyroidism, DM, COPD, ESRD, GERD, s/p tracheostomy, s/p gastrostomy presented to ER from [facility] for coffee ground emesis. Septic shock -likley source sacral decubitus ulcer -unstageable ulcer -evaluated by wound care. -no need for debridement at this time, dressing changes. Not healing -Gram Positive Bacteremia. Repeat culture negative -Lactic Acidosis -ID consult appreciated -wound culture: pseudomonas, ESBL -ertapenem day 7 and zosyn d 9 (6 more days) -strict I and O (anuric) -DIC still present, INR trending up, fibrinogen trending up PEG leaking -hold feeds -kub stat Dermatitis -on penis, around peg -bacitracin ointment Diarrhea -resolving -likely due to abx treatment -rectal tube -C diff toxin negative x 2 Hypothermia -john hugger PRN ESRD on HD -HD today -nephro consult appreciated Chronic Hypotension -weaned off levophed -weaned off dopamine -if hypotensive again can start dopamine at steady rate of 5 -hydrocortisone 50 bid d 2 Acute on chronic Anemia -aggravated by GIB -coffee ground emesis resolved -total 3u pRBC this admission -hgb stable -monitor h/h -epogen -IV PPI BID DIC -due to sepsis -fibrinogen trending up -trend coags -Heme consult apprecited -no active bleed -Platelets 30's DM -BGM q6 -sliding scale Anoxic Encephalopathy -unresponsive -unlikely to have meaningful recovery -grave prognosis -palliative care consult spoke with family -Family wishes full code due to nondenominational reasons FEN no IVF replete lytes prn tube feeds adjusted per weathercaster recommendation Dispo: 5s Problem List - Problems (1) GORDON (acute kidney injury) Code(s): N17.9 - ACUTE KIDNEY FAILURE, UNSPECIFIED (2) Anasarca Code(s): R60.1 - GENERALIZED EDEMA (3) Anemia Code(s): D64.9 - ANEMIA, UNSPECIFIED (4) CHF (congestive heart failure) Code(s): I50.9 - HEART FAILURE, UNSPECIFIED (5) CKD (chronic kidney disease) Code(s): N18.9 - CHRONIC KIDNEY DISEASE, UNSPECIFIED (6) Elevated INR Code(s): R79.1 - ABNORMAL COAGULATION PROFILE (7) Elevated brain natriuretic peptide (BNP) level Code(s): R79.89 - OTHER SPECIFIED ABNORMAL FINDINGS OF BLOOD CHEMISTRY (8) Fluid overload Code(s): E87.70 - FLUID OVERLOAD, UNSPECIFIED (9) History of CVA (cerebrovascular accident) Code(s): Z86.73 - PRSNL HX OF TIA (TIA), AND CEREB INFRC W/O RESID DEFICITS (10) Hypoalbuminemia Code(s): E88.09 - OTH DISORDERS OF PLASMA-PROTEIN METABOLISM, NEC (11) Hypotension Code(s): I95.9 - HYPOTENSION, UNSPECIFIED Qualifiers: Hypotension type: unspecified hypotension type Qualified Code(s): I95.9 - Hypotension, unspecified (12) Passes no urine Code(s): R34 - ANURIA AND OLIGURIA (13) Pressure ulcer Code(s): L89.90 - PRESSURE ULCER OF UNSPECIFIED SITE, UNSPECIFIED STAGE (14) Pressure ulcer of ankle Code(s): L89.509 - PRESSURE ULCER OF UNSPECIFIED ANKLE, UNSPECIFIED STAGE (15) Pressure ulcer of back Code(s): L89.109 - PRESSURE ULCER OF UNSP PART OF BACK, UNSPECIFIED STAGE (16) Sacral decubitus ulcer, stage IV Code(s): L89.154 - PRESSURE ULCER OF SACRAL REGION, STAGE 4 (17) Sepsis Code(s): A41.9 - SEPSIS, UNSPECIFIED ORGANISM Qualifiers: Sepsis type: sepsis due to unspecified organism Qualified Code(s): A41.9 - Sepsis, unspecified organism (18) Septic shock Code(s): A41.9 - SEPSIS, UNSPECIFIED ORGANISM R65.21 - SEVERE SEPSIS WITH SEPTIC SHOCK (19) Thrombocytopenia Code(s): D69.6 - THROMBOCYTOPENIA, UNSPECIFIED (20) Transaminitis Code(s): R74.0 - NONSPEC ELEV OF LEVELS OF TRANSAMNS & LACTIC ACID DEHYDRGNSE (21) Upper GI bleed Code(s): K92.2 - GASTROINTESTINAL HEMORRHAGE, UNSPECIFIED Visit type - Emergency Visit Emergency Visit: Yes ED Registration Date: 11/12/16 Care time: The patient presented to the Emergency Department on the above date and was hospitalized for further evaluation of their emergent condition. - New Patient This patient is new to me today: No - Critical Care Critical Care patient: No - Discharge Referral Referred to [facility] Med P.C.: No
--- NOTE | 2016-11-23 13:47 | PN ---
Progress Note, Physician History of Present Illness: PULMONARY NO CHANGE,REMAINS POORLY RESPONSIVE ON VENT SUPPORT,REMAINS HYPOTHERMIC, HYPOTENSIVE - Current Medication List Current Medications: Active Medications Albumin Human (Albumin Human 25% -) 12.5 gm IVPB Q30M [facility] Last Admin: 11/23/16 13:01 Dose: 12.5 gm Amino Acids (Prosource No Carb Liquid Pkt) 30 ml PO BID@0800,1730 [facility] Last Admin: 11/22/16 18:03 Dose: 30 ml Bacitracin (Bacitracin -) 1 applic TP DAILY [facility] Last Admin: 11/22/16 09:01 Dose: 1 applic Collagenase (Santyl -) 1 applic TP DAILY [facility] Last Admin: 11/22/16 11:12 Dose: 1 applic Hydrocortisone Sodium Succinate (Solu-Cortef -) 25 mg IVPB BID [facility] Last Admin: 11/23/16 11:29 Dose: 25 mg Piperacillin Sod/Tazobactam Sod (Zosyn 2.25gm Ivpb (Pre-Docked)) 50 mls @ 100 mls/hr IVPB Q8H-IV STEVEN PRN Reason: Protocol Last Admin: 11/23/16 11:29 Dose: 100 mls/hr Ertapenem 1 gm/ Sodium (Chloride) 50 mls @ 100 mls/hr IVPB DAILY [facility] PRN Reason: Protocol Last Admin: 11/23/16 11:28 Dose: 100 mls/hr Insulin Aspart (Novolog Vial Sliding Scale -) 1 vial SQ Q6HPO STEVEN PRN Reason: Protocol Last Admin: 11/23/16 06:27 Dose: 2 units Ketoconazole (Nizoral 2% Cream -) 1 applic TP DAILY [facility] Last Admin: 11/22/16 09:26 Dose: 1 applic Morphine Sulfate (Morphine Injection -) 2 mg IVPUSH Q6H PRN PRN Reason: PAIN Nystatin (Mycostatin Cream -) 1 applic TP BID [facility] Pantoprazole Sodium (Protonix Packets For Oral Suspension -) 40 mg NGT DAILY [facility] Last Admin: 11/22/16 09:02 Dose: 40 mg Potassium Chloride (Kcl Oral Solution -) 20 meq PO DAILY [facility] Last Admin: 11/22/16 09:01 Dose: 20 meq Potassium Phos/Sodium Phos (Phos-Nak Packet -) 1 packet PO BID [facility] Last Admin: 11/22/16 22:48 Dose: 1 packet - Objective Vital Signs: Vital Signs Temperature 94.5 F L 11/23/16 11:55 Pulse Rate 62 11/23/16 13:30 Respiratory Rate 12 11/23/16 13:30 Blood Pressure 87/63 11/23/16 13:30 O2 Sat by Pulse Oximetry (%) 95 11/23/16 11:58 Constitutional: Yes: Pallor, Thin, Other (POORLY RESPONSIVE) Eyes: Yes: Occular Prosthesis Neck: Yes: Supple (TRACH) Cardiovascular: Yes: Regular Rate and Rhythm, S1, S2 Respiratory: Yes: Rhonchi (SCATTERED SUNIL RHONCHI) Gastrointestinal: Yes: Normal Bowel Sounds, Soft Extremities: Yes: WNL, Other (+FOOT ULCERS) Edema: No Labs: CBC, BMP 11/23/16 07:40 11/23/16 07:40 INR, PTT INR 1.36 (0.82-1.09) H 11/23/16 07:40 Fibrinogen 233.0 mg/dL (238-498) L D 11/23/16 07:40 Problem List - Problems (1) CHF (congestive heart failure) Code(s): I50.9 - HEART FAILURE, UNSPECIFIED (2) CKD (chronic kidney disease) Code(s): N18.9 - CHRONIC KIDNEY DISEASE, UNSPECIFIED (3) History of CVA (cerebrovascular accident) Code(s): Z86.73 - PRSNL HX OF TIA (TIA), AND CEREB INFRC W/O RESID DEFICITS (4) Hypotension Code(s): I95.9 - HYPOTENSION, UNSPECIFIED Qualifiers: Qualified Code(s): I95.9 - Hypotension, unspecified (5) Hypothermia Code(s): T68.XXXA - HYPOTHERMIA, INITIAL ENCOUNTER Qualifiers: Qualified Code(s): T68.XXXA - Hypothermia, initial encounter (6) Pressure ulcer of back Code(s): L89.109 - PRESSURE ULCER OF UNSP PART OF BACK, UNSPECIFIED STAGE (7) Sacral decubitus ulcer, stage IV Code(s): L89.154 - PRESSURE ULCER OF SACRAL REGION, STAGE 4 (8) Sepsis Code(s): A41.9 - SEPSIS, UNSPECIFIED ORGANISM Qualifiers: Qualified Code(s): A41.9 - Sepsis, unspecified organism (9) Septic shock Code(s): A41.9 - SEPSIS, UNSPECIFIED ORGANISM R65.21 - SEVERE SEPSIS WITH SEPTIC SHOCK (10) Thrombocytopenia Code(s): D69.6 - THROMBOCYTOPENIA, UNSPECIFIED (11) Respiratory failure Code(s): J96.90 - RESPIRATORY FAILURE, UNSP, UNSP W HYPOXIA OR HYPERCAPNIA Assessment/Plan ASSESSMENT AND PLAN: Sacral Decubitus Ulcer Infection Gram Positive Bacteremia Septic Shock Lactic Acidosis ESRD on HD Chronic Hypotension h/o CVA Anoxic Encephalopathy Anemia,thrombocytopenia - continue antibiotics as per ID - HD per renal - monitor H/H - poor prognosis for any meaningful recovery - DVT/GI prophylaxis DR BUNN
[2016-11-23] MEDS: BANATROL PLUS POWDER PACKET PEG SCH ×2 (14:00→23:00)
[2016-11-23] MEDS ORDERED: EPOETIN ALFA 2,000 UNITS/1 ML VIAL IVPUSH ONE (14:19)
[2016-11-23] MEDS: POTASSIUM CHLORIDE 10 MEQ PREMIX IVPB (POTASSIUM RIDER) IVPB SCH ×2 (14:49→15:41)
[2016-11-23] MEDS: COLLAGENASE CLOSTRIDIUM HIST. 30 GRAMS TUBE TP SCH (15:42)
[2016-11-23] MEDS: KETOCONAZOLE 2% CREAM - 60GM TUBE TP SCH (15:43)
[2016-11-23] MEDS: BACITRACIN 30 GM TUBE TOPICAL OINTMENT TP SCH (15:44)
--- NOTE | 2016-11-23 16:15 | PN ---
Progress Note, Physician History of Present Illness: continues to be hypothermic no new issues or events - Current Medication List Current Medications: Active Medications Albumin Human (Albumin Human 25% -) 12.5 gm IVPB Q30M [facility] Last Admin: 11/23/16 14:05 Dose: 12.5 gm Amino Acids (Prosource No Carb Liquid Pkt) 30 ml PO BID@0800,1730 [facility] Last Admin: 11/22/16 18:03 Dose: 30 ml Bacitracin (Bacitracin -) 1 applic TP DAILY [facility] Last Admin: 11/23/16 15:44 Dose: 1 applic Collagenase (Santyl -) 1 applic TP DAILY [facility] Last Admin: 11/23/16 15:42 Dose: 1 applic Hydrocortisone Sodium Succinate (Solu-Cortef -) 25 mg IVPB BID [facility] Last Admin: 11/23/16 11:29 Dose: 25 mg Piperacillin Sod/Tazobactam Sod (Zosyn 2.25gm Ivpb (Pre-Docked)) 50 mls @ 100 mls/hr IVPB Q8H-IV STEVEN PRN Reason: Protocol Last Admin: 11/23/16 11:29 Dose: 100 mls/hr Ertapenem 1 gm/ Sodium (Chloride) 50 mls @ 100 mls/hr IVPB DAILY [facility] PRN Reason: Protocol Last Admin: 11/23/16 11:28 Dose: 100 mls/hr Insulin Aspart (Novolog Vial Sliding Scale -) 1 vial SQ Q6HPO [facility] PRN Reason: Protocol Last Admin: 11/23/16 06:27 Dose: 2 units Ketoconazole (Nizoral 2% Cream -) 1 applic TP DAILY [facility] Last Admin: 11/23/16 15:43 Dose: 1 applic Morphine Sulfate (Morphine Injection -) 2 mg IVPUSH Q6H PRN PRN Reason: PAIN Nystatin (Mycostatin Cream -) 1 applic TP BID [facility] Last Admin: 11/23/16 13:00 Dose: 1 applic Pantoprazole Sodium (Protonix Packets For Oral Suspension -) 40 mg NGT DAILY [facility] Last Admin: 11/22/16 09:02 Dose: 40 mg Potassium Chloride (Kcl Oral Solution -) 20 meq PO DAILY [facility] Last Admin: 11/22/16 09:01 Dose: 20 meq Potassium Phos/Sodium Phos (Phos-Nak Packet -) 1 packet PO BID [facility] Last Admin: 11/22/16 22:48 Dose: 1 packet - Objective Vital Signs: Vital Signs Temperature 97.5 F L 11/23/16 14:50 Pulse Rate 62 11/23/16 15:03 Respiratory Rate 15 11/23/16 15:05 Blood Pressure 100/64 11/23/16 15:03 O2 Sat by Pulse Oximetry (%) 95 11/23/16 11:58 Constitutional: Yes: Other Neck: Yes: Supple Cardiovascular: Yes: Regular Rate and Rhythm Respiratory: Yes: Regular Gastrointestinal: Yes: Normal Bowel Sounds, Soft, Other (peg in place) Musculoskeletal: Yes: Other Extremities: Yes: Other (multiple pressure ulcers) Neurological: Yes: Other Labs: CBC, BMP 11/23/16 07:40 INR, PTT INR 1.36 (0.82-1.09) H 11/23/16 07:40 Fibrinogen 233.0 mg/dL (238-498) L D 11/23/16 07:40 Assessment/Plan decubitus ulcer multiple pressure ulcer infected peg tube site septic shock lactic acidosis hypotension hypthermia esrd cva gram positive bacteremia rash patient being applied ketaconozole plan continue current mgmt continue abx patients prognosis is poor continue maintaining body temperature
[2016-11-23 16:33] LABS: CREATININE 1.1 mg/dL (0.7-1.3)
[2016-11-23] MEDS: POTASSIUM CHLORIDE 40 MEQ/30 ML UNIT DOSE CUP PO SCH ×2 (17:47→17:55)
[2016-11-23] MEDS: PANTOPRAZOLE SOD 40 MG SUSPENSION PACKET NGT SCH (17:56)
--- NOTE | 2016-11-23 19:53 | PN ---
Teaching Attending Note Name of Resident: Ros Dias ATTENDING PHYSICIAN STATEMENT I saw and evaluated the patient. I reviewed the resident's note and discussed the case with the resident. I agree with the resident's findings and plan as documented. Patient is lying in bed, Nonverbal , having dialysis today Vital Signs Temperature 97.1 F L 11/23/16 18:00 Pulse Rate 70 11/23/16 18:00 Respiratory Rate 16 11/23/16 18:00 Blood Pressure 108/58 11/23/16 18:00 O2 Sat by Pulse Oximetry (%) 95 11/23/16 11:58 CBCD WBC 2.8 K/mm3 (4.0-10.0) L 11/23/16 07:40 RBC 3.02 M/mm3 (4.00-5.60) L 11/23/16 07:40 Hgb 9.2 GM/dL (11.7-16.9) L 11/23/16 07:40 Hct 27.8 % (35.4-49) L 11/23/16 07:40 MCV 92.2 fl (80-96) 11/23/16 07:40 MCHC 32.9 g/dl (32.0-35.9) 11/23/16 07:40 RDW 21.8 % (11.9-15.9) H 11/23/16 07:40 Plt Count 31 K/MM3 (134-434) L* 11/23/16 07:40 MPV 10.9 fl (7.5-11.1) 11/23/16 07:40 CMP Sodium 144 mmol/L (136-145) 11/23/16 07:40 Potassium 2.9 mmol/L (3.5-5.1) L* 11/23/16 07:40 Chloride 104 mmol/L (98-107) 11/23/16 07:40 Carbon Dioxide 25 mmol/L (21-32) 11/23/16 07:40 Anion Gap 15 (8-16) 11/23/16 07:40 BUN 36 mg/dL (7-18) H D 11/23/16 15:00 Creatinine 1.1 mg/dL (0.7-1.3) D 11/23/16 15:00 Creat Clearance w eGFR 27.71 (>60) 11/18/16 09:45 Random Glucose 172 mg/dL (74-106) H D 11/23/16 07:40 Calcium 7.1 mg/dL (8.5-10.1) L 11/23/16 07:40 Total Bilirubin 0.8 mg/dL (0.2-1.0) 11/18/16 09:45 AST 20 U/L (15-37) 11/18/16 09:45 ALT 19 U/L (12-78) 11/18/16 09:45 Alkaline Phosphatase 268 U/L (45-117) H D 11/18/16 09:45 Total Protein 4.7 g/dl (6.4-8.2) L 11/18/16 09:45 Albumin 2.1 g/dl (3.4-5.0) L D 11/22/16 07:00 CARDIAC ENZYMES Creatine Kinase 28 IU/L (39-308) L 11/12/16 01:41 Troponin I 0.08 ng/ml (0.00-0.05) H D 11/12/16 08:10 Current Medications Generic Name Dose Route Start Last Admin Trade Name Freq PRN Reason Stop Dose Admin Albumin Human 12.5 gm 11/23/16 12:45 11/23/16 14:05 Albumin Human 25% - IVPB 12.5 gm Q30M STEVEN Administration Amino Acids 30 ml 11/16/16 08:00 11/23/16 17:56 Prosource No Carb Liquid Pkt PO 30 ml BID@0800,1730 STEVEN Administration Bacitracin 1 applic 11/18/16 12:47 11/23/16 15:44 Bacitracin - TP 1 applic DAILY STEVEN Administration Collagenase 1 applic 11/15/16 15:24 11/23/16 15:42 Santyl - TP 1 applic DAILY STEVEN Administration Hydrocortisone Sodium Succinate 25 mg 11/22/16 22:00 11/23/16 11:29 Solu-Cortef - IVPB 25 mg BID STEVEN Administration Piperacillin Sod/Tazobactam Sod 50 mls @ 100 mls/hr 11/16/16 12:15 11/23/16 17: 05 Zosyn 2.25gm Ivpb (Pre-Docked) IVPB 100 mls/hr Q8H-IV STEVEN Administration Protocol Ertapenem 1 gm/ Sodium 50 mls @ 100 mls/hr 11/17/16 17:00 11/23/16 11:28 Chloride IVPB 100 mls/hr DAILY STEVEN Administration Protocol Insulin Aspart 1 vial 11/19/16 12:37 11/23/16 17:05 Novolog Vial Sliding Scale - SQ Not Given Q6HPO STEVEN Protocol Ketoconazole 1 applic 11/16/16 10:00 11/23/16 15:43 Nizoral 2% Cream - TP 1 applic DAILY STEVEN Administration Morphine Sulfate 2 mg 11/17/16 16:40 Morphine Injection - IVPUSH Q6H PRN PAIN Nystatin 1 applic 11/23/16 11:30 11/23/16 13:00 Mycostatin Cream - TP 1 applic BID STEVEN Administration Pantoprazole Sodium 40 mg 11/20/16 10:00 11/23/16 17:56 Protonix Packets For Oral Suspension - NGT 40 mg DAILY STEVEN Administration Potassium Chloride 20 meq 11/20/16 10:00 11/23/16 17:55 Kcl Oral Solution - PO 20 meq DAILY STEVEN Administration Potassium Phos/Sodium Phos 1 packet 11/19/16 11:15 11/23/16 10:00 Phos-Nak Packet - PO Not Given BID [facility] Home Medications Medication Instructions Recorded Atorvastatin Ca [Lipitor] 80 mg PO HS 11/12/16 Esomeprazole Magnesium 40 mg PO DAILY 11/12/16 Ferrous Sulfate 325 mg PO DAILY 11/12/16 Hydrocortisone 20 mg PO DAILY 11/12/16 Levothyroxine [Synthroid -] 50 mcg PO DAILY 11/12/16 Magnesium Hydroxide [Milk of 400 mg PO DAILY 11/12/16 Magnesia] Midodrine HCl 5 mg PO DAILY 11/12/16 Sevelamer Carbonate [Renvela] 800 mg PO DAILY 11/12/16 Vitamin B Comp W-C [Nephro-Daily -] 1 tablet PO DAILY 11/12/16 ASSESSMENT AND PLAN: 76 y/o man with h/o Anoxic brain injury, chronic hypotension , HLP, COPD , chronic resp failure s/p trach, DM , hypothyroidism and other medical problems , who was brought from a [place] due to coffee ground emesis .He was found to be in septic shock. # s/p Septic shock: likely source is the decub ulcer. Hypothermia recovered. Cont ertapenem and zosyn - ON SOLU CORTEF IV 25 mg bId continue # Upper GI bleed : resolved. possible stress ulcer vs PUD on Protonix continue # DIC: due to severe sepsis. monitor coags. will transfuse blood products as needed ( fibrinogen < 100 , Hb < 7 , PLt < 20 ) # Hypernatremia . cont increased free water with Tube feeding # ESRD: cont HD. 3x per week, on the case # Hyperglycemia . Cont SSI q 6hr . # Sinus bradycardia : with episodes of PAF. not a candidate for BB or AC at this point # s/p acute Hypernatremia improved will monitor DVT Px; SCDs, No AC since came in for GI bleed
[2016-11-24] MEDS: PIPERACILLIN/TAZOB 2.25 GM 50 ML IVPB SCH ×3 (02:40→20:16)
[2016-11-24] MEDS: ALBUMIN HUMAN 25% 100 ML VIAL IVPB SCH ×4 (02:41→20:22)
[2016-11-24] MEDS ORDERED: PT OWN MED DRAWER 7, Y5N ONE ×3 (06:18→19:59)
[2016-11-24] MEDS: BANATROL PLUS POWDER PACKET PEG SCH ×3 (06:47→22:47)
[2016-11-24] MEDS: INSULIN SLIDING SCALE (NOVOLOG) 1 VIAL SQ SCH ×4 (06:47→17:58)
[2016-11-24 08:42] LABS: MCH 30.6 pg (25.7-33.7); MCHC 33.1 g/dl (32.0-35.9); MEAN CELL VOLUME 92.6 fl (80-96); MEAN PLT VOLUME 10.8 fl (7.5-11.1); RDW 22.7 % (11.9-15.9); WHITE BLOOD COUNT 3.2 K/mm3 (4.0-10.0)
[2016-11-24 08:55] LABS: INR 1.68 (0.82-1.09); PROTHROMBIN TIME (PATIENT) 18.7 SEC (9.98-11.88)
[2016-11-24 09:08] LABS: CALCIUM 7.2 mg/dL (8.5-10.1); CREATININE 1.7 mg/dL (0.7-1.3); MAGNESIUM 1.7 mg/dL (1.8-2.4); PHOSPHOROUS 2.6 mg/dL (2.5-4.9)
[2016-11-24 09:18] LABS: PLATELET COUNT 28 K/MM3 (134-434)
[2016-11-24] MEDS: PANTOPRAZOLE SOD 40 MG SUSPENSION PACKET NGT SCH (10:21)
[2016-11-24] MEDS: NAPH,MB-DB/K PH,MBDB POWDER PACKET PO SCH ×2 (10:21→22:51)
[2016-11-24] MEDS: AMINO ACIDS/PROTEIN HYDROLYS 30 ML LIQUID.PKT PO SCH ×2 (10:21→16:59)
[2016-11-24] MEDS: ERTAPENEM SODIUM 1 GM in SODIUM CHLORIDE 50 ML IVPB SCH (10:22)
[2016-11-24] MEDS: HYDROCORTISONE SOD SUCCINATE 100 MG/2 ML VIAL IVPB SCH ×2 (10:22→22:52)
[2016-11-24] MEDS: COLLAGENASE CLOSTRIDIUM HIST. 30 GRAMS TUBE TP SCH (10:23)
[2016-11-24] MEDS: KETOCONAZOLE 2% CREAM - 60GM TUBE TP SCH (10:24)
[2016-11-24] MEDS: NYSTATIN 100,000 UNIT/GM TOPICAL CREAM 15 GM TUBE TP SCH (10:24)
[2016-11-24] MEDS: BACITRACIN 30 GM TUBE TOPICAL OINTMENT TP SCH (10:25)
[2016-11-24] MEDS: POTASSIUM CHLORIDE 40 MEQ/30 ML UNIT DOSE CUP PO SCH (10:27)
--- NOTE | 2016-11-24 12:22 | PN ---
Progress Note (short form) - Note Progress Note: PULMONARY Vented on volume assist control with 40% fiO2. No fevers recorded. Last Vital Signs Temp Pulse Resp BP Pulse Ox 97.5 F L 87 15 114/90 95 11/24/16 06:00 11/24/16 09:25 11/24/16 10:35 11/24/16 06:00 11/24/16 09:25 Gen: vented, poorly responsive Heart: RRR Lung: scattered rhonchi Abd: soft, nontender Ext: multiple ulcers CBC, BMP 11/24/16 08:10 11/24/16 08:20 Active Medications Albumin Human (Albumin Human 25% -) 12.5 gm IVPB Q30M [facility] Last Admin: 11/24/16 02:41 Dose: Not Given Amino Acids (Prosource No Carb Liquid Pkt) 30 ml PO BID@0800,1730 [facility] Last Admin: 11/24/16 10:21 Dose: 30 ml Bacitracin (Bacitracin -) 1 applic TP DAILY [facility] Last Admin: 11/24/16 10:25 Dose: 1 applic Collagenase (Santyl -) 1 applic TP DAILY [facility] Last Admin: 11/24/16 10:23 Dose: 1 applic Hydrocortisone Sodium Succinate (Solu-Cortef -) 25 mg IVPB BID [facility] Last Admin: 11/24/16 10:22 Dose: 25 mg Piperacillin Sod/Tazobactam Sod (Zosyn 2.25gm Ivpb (Pre-Docked)) 50 mls @ 100 mls/hr IVPB Q8H-IV [facility] PRN Reason: Protocol Last Admin: 11/24/16 10:22 Dose: 100 mls/hr Ertapenem 1 gm/ Sodium (Chloride) 50 mls @ 100 mls/hr IVPB DAILY [facility] PRN Reason: Protocol Last Admin: 11/24/16 10:22 Dose: 100 mls/hr Insulin Aspart (Novolog Vial Sliding Scale -) 1 vial SQ Q6HPO [facility] PRN Reason: Protocol Last Admin: 11/24/16 06:47 Dose: 2 units Ketoconazole (Nizoral 2% Cream -) 1 applic TP DAILY [facility] Last Admin: 11/24/16 10:24 Dose: 1 applic Nystatin (Mycostatin Cream -) 1 applic TP BID [facility] Last Admin: 11/24/16 10:24 Dose: 1 applic Pantoprazole Sodium (Protonix Packets For Oral Suspension -) 40 mg NGT DAILY [facility] Last Admin: 11/24/16 10:21 Dose: 40 mg Potassium Chloride (Kcl Oral Solution -) 20 meq PO DAILY [facility] Last Admin: 11/24/16 10:27 Dose: 20 meq Potassium Phos/Sodium Phos (Phos-Nak Packet -) 1 packet PO BID [facility] Last Admin: 11/24/16 10:21 Dose: 1 packet A/P Sacral Decubitus Ulcer Infection Gram Positive Bacteremia Septic Shock improving ESRD on HD Chronic Hypotension h/o CVA Anoxic Encephalopathy Anemia Thrombocytopenia - continue antibiotics per ID - wound care - midodrine - HD per renal - poor prognosis for any meaningful recovery, approaching medical futility, recommend palliative care - DVT/GI prophylaxis
[2016-11-24] MEDS ORDERED: POTASSIUM CHLORIDE TABS 20 MEQ TABLET.ER (FP) PO ONE (13:30)
[2016-11-24] MEDS ORDERED: BACITRACIN 30 GM TUBE TOPICAL OINTMENT TP SCH ×2 (13:31→14:45)
[2016-11-24] MEDS ORDERED: ITRACONAZOLE 100 MG CAPSULE PO SCH (13:45)
--- NOTE | 2016-11-24 13:45 | PN ---
Physical Exam: SUBJECTIVE: Patient seen and examined Patient resting in bed, opening eyes spontaneously, at baseline. 97.8 F now, was 94 F yesterday noon. On john hugger this AM. Off pressors BP stable. HR 60' s. Vent settings: 12/450/35%/50/5/4. Informed taht patient developed diffuse tinea corporis. Loose light brown diarrhea in rectal tube. No bleeding. No hematemesis. Anuric. HD yesterday. OBJECTIVE: Vital Signs Period Temp Pulse Resp BP Sys/Vang Pulse Ox Last 24 Hr 96.8 F-99.1 F 59-87 12-17 85-114/56-90 95-98 GENERAL: unresponsive, opens eyes. 3+ anasarca HEAD: Normal with no signs of trauma. EYES: sclera anicteric, conjunctiva clear. ENT: moist mucous membranes. NECK: supple. LUNGS: diffuse ronchi, trach, vent. HEART: Regular rate and rhythm, S1, S2 ABDOMEN: Soft, mildly distended, globally reduced bowel sounds, feels hard because of edema (baseline) Peg in place, dermatitis around peg EXTREMITIES: 1+ pulses, warm, 3+ edema. b/l pressure ulcers on heels with black echar. clean dressing in place Sacrum: unstageable pressure ulcer with yellow echar, malodorous. NEUROLOGICAL: symmetrical face PSYCH: unable to assess SKIN: Warm, dry, tinea corporis diffusely on abdomen, chest Laboratory Results - last 24 hr 11/23/16 11/23/16 11/23/16 15:00 16:59 23:02 WBC RBC Hgb Hct MCV MCHC RDW Plt Count MPV INR Fibrinogen Sodium Potassium Chloride Carbon Dioxide Anion Gap BUN 36 H D Creatinine 1.1 D POC Glucometer 114 129 Random Glucose Calcium Phosphorus Magnesium 11/24/16 11/24/16 11/24/16 06:46 08:10 08:10 WBC 3.2 L RBC 2.64 L Hgb 8.1 L D Hct 24.5 L MCV 92.6 MCHC 33.1 RDW 22.7 H Plt Count 28 L* MPV 10.8 INR 1.68 H Fibrinogen 220.0 L Sodium Potassium Chloride Carbon Dioxide Anion Gap BUN Creatinine POC Glucometer 170 Random Glucose Calcium Phosphorus Magnesium 11/24/16 11/24/16 08:20 11:34 WBC RBC Hgb Hct MCV MCHC RDW Plt Count MPV INR Fibrinogen Sodium 145 Potassium 3.3 L Chloride 106 Carbon Dioxide 27 Anion Gap 12 BUN 49 H D Creatinine 1.7 H D POC Glucometer 207 Random Glucose 182 H Calcium 7.2 L Phosphorus 2.6 D Magnesium 1.7 L Active Medications Generic Name Dose Route Start Last Admin Trade Name Freq PRN Reason Stop Dose Admin Albumin Human 12.5 gm 11/23/16 12:45 11/24/16 02:41 Albumin Human 25% - IVPB Not Given Q30M [facility] Amino Acids 30 ml 11/16/16 08:00 11/24/16 10:21 Prosource No Carb Liquid Pkt PO 30 ml BID@0800,1730 [facility] Administration Bacitracin 1 applic 11/24/16 13:43 Bacitracin - TP DAILY [facility] Collagenase 1 applic 11/15/16 15:24 11/24/16 10:23 Santyl - TP 1 applic DAILY [facility] Administration Hydrocortisone Sodium Succinate 25 mg 11/22/16 22:00 11/24/16 10:22 Solu-Cortef - IVPB 25 mg BID [facility] Administration Piperacillin Sod/Tazobactam Sod 50 mls @ 100 mls/hr 11/16/16 12:15 11/24/16 10: 22 Zosyn 2.25gm Ivpb (Pre-Docked) IVPB 100 mls/hr Q8H-IV [facility] Administration Protocol Ertapenem 1 gm/ Sodium 50 mls @ 100 mls/hr 11/17/16 17:00 11/24/16 10:22 Chloride IVPB 100 mls/hr DAILY [facility] Administration Protocol Insulin Aspart 1 vial 11/19/16 12:37 11/24/16 12:30 Novolog Vial Sliding Scale - SQ 4 units Q6HPO [facility] Administration Protocol Itraconazole 200 mg 11/24/16 13:45 Sporanox - PO DAILY [facility] Ketoconazole 1 applic 11/16/16 10:00 11/24/16 10:24 Nizoral 2% Cream - TP 1 applic DAILY [facility] Administration Magnesium Sulfate 1 gm 11/24/16 13:30 Magnesium Sulfate IVPB 11/24/16 13:31 ONCE ONE Nystatin 1 applic 11/23/16 11:30 11/24/16 10:24 Mycostatin Cream - TP 1 applic BID [facility] Administration Pantoprazole Sodium 40 mg 11/20/16 10:00 11/24/16 10:21 Protonix Packets For Oral Suspension - NGT 40 mg DAILY [facility] Administration Potassium Chloride 20 meq 11/20/16 10:00 11/24/16 10:27 Kcl Oral Solution - PO 20 meq DAILY [facility] Administration Potassium Chloride 20 meq 11/24/16 13:30 K-Dur - PO 11/24/16 13:31 ONCE ONE Potassium Phos/Sodium Phos 1 packet 11/19/16 11:15 11/24/16 10:21 Phos-Nak Packet - PO 1 packet BID STEVEN Administration ASSESSMENT/PLAN: This is a 76 yo M with PMH of hypotension, HLD, hypothyroidism, DM, COPD, ESRD, GERD, s/p tracheostomy, s/p gastrostomy presented to ER from [facility] for coffee ground emesis. Septic shock -likley source sacral decubitus ulcer -unstageable ulcer -evaluated by wound care. -no need for debridement at this time, dressing changes. Not healing -Gram Positive Bacteremia. Repeat culture negative -Lactic Acidosis -ID consult appreciated -wound culture: pseudomonas, ESBL -ertapenem day 7 and zosyn d 9 (5 more days) -strict I and O (anuric) -DIC still present PEG leaking air, tube feed contents -GI consult to adjust -hold feeds -KUB yesterday nonobstructive Tinea Corporis lotrimin TP itraconazole 200 daily x7 Dermatitis -on penis, around peg -bacitracin ointment Diarrhea -resolving -likely due to abx treatment -rectal tube -C diff toxin negative x 2 Hypothermia -john hassan PRN ESRD on HD -HD yesterday -nephro consult appreciated Chronic Hypotension -weaned off levophed -weaned off dopamine -if hypotensive again can start dopamine at steady rate of 5 -hydrocortisone 50 d Acute on chronic Anemia -aggravated by GIB -coffee ground emesis resolved -total 3u pRBC this admission -hgb stable -monitor h/h -epogen -IV PPI BID DIC -due to sepsis -fibrinogen trending up -trend coags -Heme consult apprecited -no active bleed -Platelets 30's DM -BGM q6 -sliding scale Anoxic Encephalopathy -unresponsive -unlikely to have meaningful recovery -grave prognosis -palliative care consult spoke with family -Family wishes full code due to jew reasons FEN no IVF replete lytes prn tube feeds adjusted per utility system operator recommendation Dispo: 5s Problem List - Problems (1) GORDON (acute kidney injury) Code(s): N17.9 - ACUTE KIDNEY FAILURE, UNSPECIFIED (2) Anasarca Code(s): R60.1 - GENERALIZED EDEMA (3) Anemia Code(s): D64.9 - ANEMIA, UNSPECIFIED (4) CHF (congestive heart failure) Code(s): I50.9 - HEART FAILURE, UNSPECIFIED (5) CKD (chronic kidney disease) Code(s): N18.9 - CHRONIC KIDNEY DISEASE, UNSPECIFIED (6) Elevated INR Code(s): R79.1 - ABNORMAL COAGULATION PROFILE (7) Elevated brain natriuretic peptide (BNP) level Code(s): R79.89 - OTHER SPECIFIED ABNORMAL FINDINGS OF BLOOD CHEMISTRY (8) Fluid overload Code(s): E87.70 - FLUID OVERLOAD, UNSPECIFIED (9) History of CVA (cerebrovascular accident) Code(s): Z86.73 - PRSNL HX OF TIA (TIA), AND CEREB INFRC W/O RESID DEFICITS (10) Hypoalbuminemia Code(s): E88.09 - OTH DISORDERS OF PLASMA-PROTEIN METABOLISM, NEC (11) Hypotension Code(s): I95.9 - HYPOTENSION, UNSPECIFIED Qualifiers: Hypotension type: unspecified hypotension type Qualified Code(s): I95.9 - Hypotension, unspecified (12) Passes no urine Code(s): R34 - ANURIA AND OLIGURIA (13) Pressure ulcer Code(s): L89.90 - PRESSURE ULCER OF UNSPECIFIED SITE, UNSPECIFIED STAGE (14) Pressure ulcer of ankle Code(s): L89.509 - PRESSURE ULCER OF UNSPECIFIED ANKLE, UNSPECIFIED STAGE (15) Pressure ulcer of back Code(s): L89.109 - PRESSURE ULCER OF UNSP PART OF BACK, UNSPECIFIED STAGE (16) Sacral decubitus ulcer, stage IV Code(s): L89.154 - PRESSURE ULCER OF SACRAL REGION, STAGE 4 (17) Sepsis Code(s): A41.9 - SEPSIS, UNSPECIFIED ORGANISM Qualifiers: Sepsis type: sepsis due to unspecified organism Qualified Code(s): A41.9 - Sepsis, unspecified organism (18) Septic shock Code(s): A41.9 - SEPSIS, UNSPECIFIED ORGANISM R65.21 - SEVERE SEPSIS WITH SEPTIC SHOCK (19) Thrombocytopenia Code(s): D69.6 - THROMBOCYTOPENIA, UNSPECIFIED (20) Transaminitis Code(s): R74.0 - NONSPEC ELEV OF LEVELS OF TRANSAMNS & LACTIC ACID DEHYDRGNSE (21) Upper GI bleed Code(s): K92.2 - GASTROINTESTINAL HEMORRHAGE, UNSPECIFIED Visit type - Emergency Visit Emergency Visit: Yes ED Registration Date: 11/12/16 Care time: The patient presented to the Emergency Department on the above date and was hospitalized for further evaluation of their emergent condition. - New Patient This patient is new to me today: No - Critical Care Critical Care patient: No - Discharge Referral [facility]erred to [facility] Med [facility] No
[2016-11-24] MEDS ORDERED: MAGNESIUM SULF 50% (8.12 MEQ/2 ML-1 GM VIAL) IVPB ONE (14:45)
[2016-11-24] MEDS: ITRACONAZOLE 100 MG CAPSULE PO SCH ×2 (15:13→16:25)
--- NOTE | 2016-11-24 15:25 | PN ---
Progress Note, Physician History of Present Illness: hypothermic leakage of peg tube - Current Medication List Current Medications: Active Medications Albumin Human (Albumin Human 25% -) 12.5 gm IVPB Q30M [facility] Last Admin: 11/24/16 02:41 Dose: Not Given Amino Acids (Prosource No Carb Liquid Pkt) 30 ml PO BID@0800,1730 [facility] Last Admin: 11/24/16 10:21 Dose: 30 ml Bacitracin (Bacitracin -) 1 applic TP DAILY [facility] Clotrimazole (Lotrimin 1% Solution -) 1 applic TP BID [facility] Collagenase (Santyl -) 1 applic TP DAILY [facility] Last Admin: 11/24/16 10:23 Dose: 1 applic Hydrocortisone Sodium Succinate (Solu-Cortef -) 25 mg IVPB BID [facility] Last Admin: 11/24/16 10:22 Dose: 25 mg Piperacillin Sod/Tazobactam Sod (Zosyn 2.25gm Ivpb (Pre-Docked)) 50 mls @ 100 mls/hr IVPB Q8H-IV [facility] PRN Reason: Protocol Last Admin: 11/24/16 10:22 Dose: 100 mls/hr Ertapenem 1 gm/ Sodium (Chloride) 50 mls @ 100 mls/hr IVPB DAILY [facility] PRN Reason: Protocol Last Admin: 11/24/16 10:22 Dose: 100 mls/hr Potassium Chloride (Potassium Chloride 10 Meq Premix Ivpb -) 100 mls @ 100 mls/ hr IVPB Q60M [facility] Stop: 11/24/16 16:44 Insulin Aspart (Novolog Vial Sliding Scale -) 1 vial SQ Q6HPO [facility] PRN Reason: Protocol Last Admin: 11/24/16 12:30 Dose: 4 units Itraconazole (Sporanox -) 200 mg PO DAILY [facility] Ketoconazole (Nizoral 2% Cream -) 1 applic TP DAILY [facility] Last Admin: 11/24/16 10:24 Dose: 1 applic Pantoprazole Sodium (Protonix Packets For Oral Suspension -) 40 mg NGT DAILY [facility] Last Admin: 11/24/16 10:21 Dose: 40 mg Potassium Chloride (Kcl Oral Solution -) 20 meq PO DAILY [facility] Last Admin: 11/24/16 10:27 Dose: 20 meq Potassium Phos/Sodium Phos (Phos-Nak Packet -) 1 packet PO BID [facility] Last Admin: 11/24/16 10:21 Dose: 1 packet - Objective Vital Signs: Vital Signs Temperature 97.2 F L 11/24/16 13:13 Pulse Rate 87 11/24/16 09:25 Respiratory Rate 16 11/24/16 13:55 Blood Pressure 90/56 11/24/16 09:00 O2 Sat by Pulse Oximetry (%) 95 11/24/16 09:25 Constitutional: Yes: Other Cardiovascular: Yes: Regular Rate and Rhythm Respiratory: Yes: Regular, Poor Air Entry Gastrointestinal: Yes: Normal Bowel Sounds, Soft, Other (peg tube leakage) Genitourinary: Yes: Randolph Present Musculoskeletal: Yes: Other Extremities: Yes: Other (multiple pressure ulcer present) Integumentary: Yes: Pressure Ulcer, Other Wound/Incision: Yes: Other (decubitus ulcer) Neurological: Yes: Other Psychiatric: Yes: Other Labs: CBC, BMP 11/24/16 08:10 11/24/16 08:20 INR, PTT INR 1.68 (0.82-1.09) H 11/24/16 08:10 Fibrinogen 220.0 mg/dL (238-498) L 11/24/16 08:10 Assessment/Plan decubitus ulcer multiple pressure ulcer infected peg tube site septic shock lactic acidosis hypotension hypthermia esrd cva gram positive bacteremia rash patient being applied ketaconozole plan continue current mgmt continue abx patients prognosis is poor continue maintaining body temperature await for gi to look at the patient feeding on hold for now
--- NOTE | 2016-11-24 16:00 | PN ---
Progress Note, Physician History of Present Illness: Pt seen and examined at bedside. He remains lethargic. Pt on vent. Feeds were stopped as his peg is leaking. - Current Medication List Current Medications: Active Medications Albumin Human (Albumin Human 25% -) 12.5 gm IVPB Q30M [facility] Last Admin: 11/24/16 02:41 Dose: Not Given Amino Acids (Prosource No Carb Liquid Pkt) 30 ml PO BID@0800,1730 [facility] Last Admin: 11/24/16 10:21 Dose: 30 ml Bacitracin (Bacitracin -) 1 applic TP DAILY [facility] Last Admin: 11/24/16 15:35 Dose: Not Given Clotrimazole (Lotrimin 1% Solution -) 1 applic TP BID [facility] Collagenase (Santyl -) 1 applic TP DAILY [facility] Last Admin: 11/24/16 10:23 Dose: 1 applic Hydrocortisone Sodium Succinate (Solu-Cortef -) 25 mg IVPB BID [facility] Last Admin: 11/24/16 10:22 Dose: 25 mg Piperacillin Sod/Tazobactam Sod (Zosyn 2.25gm Ivpb (Pre-Docked)) 50 mls @ 100 mls/hr IVPB Q8H-IV [facility] PRN Reason: Protocol Last Admin: 11/24/16 10:22 Dose: 100 mls/hr Ertapenem 1 gm/ Sodium (Chloride) 50 mls @ 100 mls/hr IVPB DAILY [facility] PRN Reason: Protocol Last Admin: 11/24/16 10:22 Dose: 100 mls/hr Potassium Chloride (Potassium Chloride 10 Meq Premix Ivpb -) 100 mls @ 100 mls/ hr IVPB Q60M [facility] Stop: 11/24/16 16:44 Insulin Aspart (Novolog Vial Sliding Scale -) 1 vial SQ Q6HPO [facility] PRN Reason: Protocol Last Admin: 11/24/16 12:30 Dose: 4 units Itraconazole (Sporanox -) 200 mg PO DAILY [facility] Ketoconazole (Nizoral 2% Cream -) 1 applic TP DAILY [facility] Last Admin: 11/24/16 10:24 Dose: 1 applic Pantoprazole Sodium (Protonix Packets For Oral Suspension -) 40 mg NGT DAILY [facility] Last Admin: 11/24/16 10:21 Dose: 40 mg Potassium Chloride (Kcl Oral Solution -) 20 meq PO DAILY [facility] Last Admin: 11/24/16 10:27 Dose: 20 meq Potassium Phos/Sodium Phos (Phos-Nak Packet -) 1 packet PO BID [facility] Last Admin: 11/24/16 10:21 Dose: 1 packet - Objective Vital Signs: Vital Signs Temperature 97.3 F L 11/24/16 14:28 Pulse Rate 70 11/24/16 14:28 Respiratory Rate 12 11/24/16 14:28 Blood Pressure 102/58 11/24/16 14:28 O2 Sat by Pulse Oximetry (%) 95 11/24/16 09:25 Constitutional: Yes: Calm Eyes: Yes: Conjunctiva Clear Cardiovascular: Yes: S1, S2 Respiratory: Yes: Mechanically Ventilated Gastrointestinal: Yes: Soft, Other (peg tube) Genitourinary: Yes: Anuria Musculoskeletal: Yes: Muscle Weakness Edema: Yes Neurological: Yes: Lethargy Labs: CBC, BMP 11/24/16 08:10 11/24/16 08:20 INR, PTT INR 1.68 (0.82-1.09) H 11/24/16 08:10 Fibrinogen 220.0 mg/dL (238-498) L 11/24/16 08:10 Problem List - Problems (1) GORDON (acute kidney injury) Code(s): N17.9 - ACUTE KIDNEY FAILURE, UNSPECIFIED (2) Anasarca Code(s): R60.1 - GENERALIZED EDEMA (3) Anemia Code(s): D64.9 - ANEMIA, UNSPECIFIED (4) CHF (congestive heart failure) Code(s): I50.9 - HEART FAILURE, UNSPECIFIED (5) CKD (chronic kidney disease) Code(s): N18.9 - CHRONIC KIDNEY DISEASE, UNSPECIFIED (6) Fluid overload Code(s): E87.70 - FLUID OVERLOAD, UNSPECIFIED (7) History of CVA (cerebrovascular accident) Code(s): Z86.73 - PRSNL HX OF TIA (TIA), AND CEREB INFRC W/O RESID DEFICITS Assessment/Plan Current Medications Generic Name Dose Route Start Last Admin Trade Name Freq PRN Reason Stop Dose Admin Albumin Human 12.5 gm 11/23/16 12:45 11/24/16 02:41 Albumin Human 25% - IVPB Not Given Q30M [facility] Amino Acids 30 ml 11/16/16 08:00 11/24/16 10:21 Prosource No Carb Liquid Pkt PO 30 ml BID@0800,1730 [facility] Administration Bacitracin 1 applic 11/24/16 14:45 11/24/16 15:35 Bacitracin - TP Not Given DAILY [facility] Clotrimazole 1 applic 11/24/16 14:00 Lotrimin 1% Solution - TP BID [facility] Collagenase 1 applic 11/15/16 15:24 11/24/16 10:23 Santyl - TP 1 applic DAILY [facility] Administration Hydrocortisone Sodium Succinate 25 mg 11/22/16 22:00 11/24/16 10:22 Solu-Cortef - IVPB 25 mg BID [facility] Administration Piperacillin Sod/Tazobactam Sod 50 mls @ 100 mls/hr 11/16/16 12:15 11/24/16 10: 22 Zosyn 2.25gm Ivpb (Pre-Docked) IVPB 100 mls/hr Q8H-IV [facility] Administration Protocol Ertapenem 1 gm/ Sodium 50 mls @ 100 mls/hr 11/17/16 17:00 11/24/16 10:22 Chloride IVPB 100 mls/hr DAILY [facility] Administration Protocol Potassium Chloride 100 mls @ 100 mls/hr 11/24/16 14:45 Potassium Chloride 10 Meq Premix Ivpb - IVPB 11/24/16 16:44 Q60M [facility] Insulin Aspart 1 vial 11/19/16 12:37 11/24/16 12:30 Novolog Vial Sliding Scale - SQ 4 units Q6HPO [facility] Administration Protocol Itraconazole 200 mg 11/24/16 14:45 Sporanox - PO DAILY [facility] Ketoconazole 1 applic 11/16/16 10:00 11/24/16 10:24 Nizoral 2% Cream - TP 1 applic DAILY [facility] Administration Pantoprazole Sodium 40 mg 11/20/16 10:00 11/24/16 10:21 Protonix Packets For Oral Suspension - NGT 40 mg DAILY [facility] Administration Potassium Chloride 20 meq 11/20/16 10:00 11/24/16 10:27 Kcl Oral Solution - PO 20 meq DAILY [facility] Administration Potassium Phos/Sodium Phos 1 packet 11/19/16 11:15 11/24/16 10:21 Phos-Nak Packet - PO 1 packet BID [facility] Administration Impression 1. ESRD 2. hypotension 3. chronic respiratory failure 4. sepsis 5. Anemia 6. GI bleed 7. CVA 8. DM 9. Hypothyroidism 10. pancytopenia Plan - HD in am - GI eval for Peg tube - epogen for anemia - overall prognosis is poor - wound care to ulcers - will follow Dr Mireles
[2016-11-24] MEDS ORDERED: FLUCONAZOLE 40 MG/ML SUSPENSION 35 ML BOTTLE PEG SCH (16:15)
[2016-11-24] MEDS: KCL 10 MEQ IVPB 100 ML IVPB SCH ×2 (16:59→18:10)
[2016-11-24] MEDS: CLOTRIMAZOLE 1%TOPICAL SOLUTION 30 ML BOTTLE TP SCH ×2 (17:00→22:50)
--- NOTE | 2016-11-24 19:15 | PN ---
Teaching Attending Note Name of Resident: Ros Dias ATTENDING PHYSICIAN STATEMENT I saw and evaluated the patient. I reviewed the resident's note and discussed the case with the resident. I agree with the resident's findings and plan as documented. Patient continues to be nonverbal, comfortable with no acute distress. Vital Signs Temperature 97.3 F L 11/24/16 14:28 Pulse Rate 70 11/24/16 14:28 Respiratory Rate 15 11/24/16 18:10 Blood Pressure 102/58 11/24/16 14:28 O2 Sat by Pulse Oximetry (%) 95 11/24/16 09:25 CBCD WBC 3.2 K/mm3 (4.0-10.0) L 11/24/16 08:10 RBC 2.64 M/mm3 (4.00-5.60) L 11/24/16 08:10 Hgb 8.1 GM/dL (11.7-16.9) L D 11/24/16 08:10 Hct 24.5 % (35.4-49) L 11/24/16 08:10 MCV 92.6 fl (80-96) 11/24/16 08:10 MCHC 33.1 g/dl (32.0-35.9) 11/24/16 08:10 RDW 22.7 % (11.9-15.9) H 11/24/16 08:10 Plt Count 28 K/MM3 (134-434) L* 11/24/16 08:10 MPV 10.8 fl (7.5-11.1) 11/24/16 08:10 CMP Sodium 145 mmol/L (136-145) 11/24/16 08:20 Potassium 3.3 mmol/L (3.5-5.1) L 11/24/16 08:20 Chloride 106 mmol/L (98-107) 11/24/16 08:20 Carbon Dioxide 27 mmol/L (21-32) 11/24/16 08:20 Anion Gap 12 (8-16) 11/24/16 08:20 BUN 49 mg/dL (7-18) H D 11/24/16 08:20 Creatinine 1.7 mg/dL (0.7-1.3) H D 11/24/16 08:20 Creat Clearance w eGFR 27.71 (>60) 11/18/16 09:45 Random Glucose 182 mg/dL (74-106) H 11/24/16 08:20 Calcium 7.2 mg/dL (8.5-10.1) L 11/24/16 08:20 Total Bilirubin 0.8 mg/dL (0.2-1.0) 11/18/16 09:45 AST 20 U/L (15-37) 11/18/16 09:45 ALT 19 U/L (12-78) 11/18/16 09:45 Alkaline Phosphatase 268 U/L (45-117) H D 11/18/16 09:45 Total Protein 4.7 g/dl (6.4-8.2) L 11/18/16 09:45 Albumin 2.1 g/dl (3.4-5.0) L D 11/22/16 07:00 CARDIAC ENZYMES Creatine Kinase 28 IU/L (39-308) L 11/12/16 01:41 Troponin I 0.08 ng/ml (0.00-0.05) H D 11/12/16 08:10 Current Medications Generic Name Dose Route Start Last Admin Trade Name Freq PRN Reason Stop Dose Admin Albumin Human 12.5 gm 11/23/16 12:45 11/24/16 02:41 Albumin Human 25% - IVPB Not Given Q30M [facility] Albumin Human 12.5 gm 11/25/16 16:15 Albumin Human 25% IVPB Q30M [facility] Amino Acids 30 ml 11/16/16 08:00 11/24/16 16:59 Prosource No Carb Liquid Pkt PO 30 ml BID@0800,1730 [facility] Administration Bacitracin 1 applic 11/24/16 14:45 11/24/16 15:35 Bacitracin - TP Not Given DAILY [facility] Clotrimazole 1 applic 11/24/16 14:00 11/24/16 17:00 Lotrimin 1% Solution - TP 1 applic BID [facility] Administration Collagenase 1 applic 11/15/16 15:24 11/24/16 10:23 Santyl - TP 1 applic DAILY [facility] Administration Epoetin Rigoberto 6,000 units 11/25/16 16:01 Epogen - IVPUSH 11/25/16 16:02 ONCE ONE Fluconazole 200 mg 11/24/16 16:15 11/24/16 18:50 Diflucan 40mg/Ml Suspension - PEG 200 mg DAILY [facility] Administration Hydrocortisone Sodium Succinate 25 mg 11/22/16 22:00 11/24/16 10:22 Solu-Cortef - IVPB 25 mg BID [facility] Administration Piperacillin Sod/Tazobactam Sod 50 mls @ 100 mls/hr 11/16/16 12:15 11/24/16 10: 22 Zosyn 2.25gm Ivpb (Pre-Docked) IVPB 100 mls/hr Q8H-IV [facility] Administration Protocol Ertapenem 1 gm/ Sodium 50 mls @ 100 mls/hr 11/17/16 17:00 11/24/16 10:22 Chloride IVPB 100 mls/hr DAILY [facility] Administration Protocol Insulin Aspart 1 vial 11/19/16 12:37 11/24/16 17:58 Novolog Vial Sliding Scale - SQ Not Given Q6HPO [facility] Protocol Ketoconazole 1 applic 11/16/16 10:00 11/24/16 10:24 Nizoral 2% Cream - TP 1 applic DAILY [facility] Administration Pantoprazole Sodium 40 mg 11/20/16 10:00 11/24/16 10:21 Protonix Packets For Oral Suspension - NGT 40 mg DAILY [facility] Administration Potassium Chloride 20 meq 11/20/16 10:00 11/24/16 10:27 Kcl Oral Solution - PO 20 meq DAILY [facility] Administration Potassium Phos/Sodium Phos 1 packet 11/19/16 11:15 11/24/16 10:21 Phos-Nak Packet - PO 1 packet BID [facility] Administration Home Medications Medication Instructions Recorded Atorvastatin Ca [Lipitor] 80 mg PO HS 11/12/16 Esomeprazole Magnesium 40 mg PO DAILY 11/12/16 Ferrous Sulfate 325 mg PO DAILY 11/12/16 Hydrocortisone 20 mg PO DAILY 11/12/16 Levothyroxine [Synthroid -] 50 mcg PO DAILY 11/12/16 Magnesium Hydroxide [Milk of 400 mg PO DAILY 11/12/16 Magnesia] Midodrine HCl 5 mg PO DAILY 11/12/16 Sevelamer Carbonate [Renvela] 800 mg PO DAILY 11/12/16 Vitamin B Comp W-C [Nephro-Daily -] 1 tablet PO DAILY 11/12/16 ASSESSMENT AND PLAN: 76 y/o man with h/o Anoxic brain injury, chronic hypotension , HLP, COPD , chronic resp failure s/p trach, DM , hypothyroidism and other medical problems , who was brought from a NH due to coffee ground emesis .He was found to be in septic shock. # s/p Septic shock: likely due the decub ulcer. Hypothermia recovered. ON IV ertapenem and zosyn continue - ON SOLU CORTEF IV 25 mg bId continue # Upper GI bleed : possible due to stress ulcer vs PUD on PPI per peg tub # DIC: due to severe sepsis. monitor coags. will transfuse blood products as needed ( fibrinogen < 100 , Hb < 7 , PLt < 20 ) # s/p Acute Hypernatremia improved due to having free water in TF. # ESRD: cont HD. 3x per week, on the case, low potassium will not replete since patient is on dialysis # Hyperglycemia . Cont SSI q 6hr . # Sinus bradycardia : with episodes of PAF. not a candidate for BB or AC at this point DVT Px; SCDs, No AC since came in for GI bleed
[2016-11-25] MEDS: ALBUMIN HUMAN 25% 100 ML VIAL IVPB SCH ×2 (00:03→00:04)
[2016-11-25] MEDS: INSULIN SLIDING SCALE (NOVOLOG) 1 VIAL SQ SCH ×4 (00:05→17:24)
[2016-11-25] MEDS ORDERED: DOPAMINE 400 MG/D5W - 250 ML IVPB SCH (02:45)
[2016-11-25] MEDS: PIPERACILLIN/TAZOB 2.25 GM 50 ML IVPB SCH ×3 (03:10→17:25)
--- NOTE | 2016-11-25 03:12 | HOSP ---
Subjective - Review of Symptoms Events since last encounter: Was paged by the nurse @ 2:30 am and informed that patient's blood pressure is 63/29mmHg. Went to examine the patient. Ordered IV NS 500mls of bolus normal saline. Blood pressure improved to 71/41 mmHg. Blood pressure repeated after 5 minutes and it was 63/30mmHg. Transferred to the ICU immediately. Ordered Dopamine drip. Called patient's son Mr. Matthew Jimenez ). Explained in depth about the patients current condition and the poor prognosis by Dr. Fleming. Patients son mentioned that he wants everything to be done. A/P: This is a 76 yo M with PMH of hypotension, HLD, hypothyroidism, DM, COPD, ESRD, GERD, s/p tracheostomy, s/p gastrostomy presented to ER from [facility] for coffee ground emesis admitted with the diagnosis of Septic shock likley source sacral decubitus ulcer Physical Examination Vital Signs: Vital Signs Temperature 96.3 F L 11/24/16 22:00 Pulse Rate 65 11/24/16 22:00 Respiratory Rate 18 11/25/16 01:41 Blood Pressure 85/45 11/24/16 22:00 O2 Sat by Pulse Oximetry (%) 93 L 11/25/16 00:51 Labs: CBC, BMP 11/24/16 08:10 11/24/16 08:20 Visit type - Emergency Visit Emergency Visit: Yes ED Registration Date: 11/12/16 Care time: The patient presented to the Emergency Department on the above date and was hospitalized for further evaluation of their emergent condition. - New Patient This patient is new to me today: Yes Date on this admission: 11/25/16 - Critical Care Critical Care patient: No
[2016-11-25] MEDS ORDERED: SODIUM CHLORIDE 500 ML IV STA (03:18)
[2016-11-25] MEDS: DOPAMINE 400 MG/D5W - 250 ML IVPB SCH ×4 (03:35→19:00)
[2016-11-25] MEDS ORDERED: EPOETIN ALFA 2,000 UNITS/1 ML VIAL IVPUSH ONE ×4 (03:35→16:01)
[2016-11-25] MEDS ORDERED: PT OWN MED DRAWER 7, Y5N ONE ×3 (03:37→21:31)
[2016-11-25] MEDS ORDERED: NOREPINEPHRINE BITARTRATE 4 MG/4 ML ML IV ONE (03:43)
[2016-11-25] MEDS ORDERED: PHENYLEPHRINE HCL 10 MG/1 ML SINGLE DOSE VIAL ONE ×2 (04:36→08:28)
[2016-11-25] MEDS ORDERED: PHENYLEPHRINE HCL 10,000 MCG in DEXTROSE 5%-WATER - 499 ML IV SCH ×2 (04:45→11:30)
--- NOTE | 2016-11-25 05:10 | CONSULT ---
Consult Consult Specialty:: Pulmonary/ Critical Care Referred by:: José Miguel Mattson Reason for Consultation:: shock - History of Present Illness Chief Complaint: shock History of Present Illness: 76 y/o man with history of hypotension, hypothyroidism, DM, COPD, ESRD, GERD, CVA s/p trach and gastrostomy, ID resident who initially presented from [facility] for coffee ground emesis, found to be bacteremic presumably from sacral decub , course c/b shock which resolved and he was transferred to floor however now with recurrent shock readmitted to ICU. Around 2:30am, pts BP noted to be 60s/20s. He was given 500cc NS with improvement to 70s/40s however he subsequently dropped back to 60s and was transferred to ICU on dopamine gtt via PIV. Pts son was contacted and son expressed understanding however continued to want everything done. On arrival to ICU pts BP 80s despite dopamime @ 20mcg. Consent obtained and L IJ TLC attempted however unable to thread wire past trochar needle, suspect stenotic vessel given images on ultrasound and old subclavian scaring. L femoral TLC attempted but given pts significant edema and contracted legs, unable to obtain access. PIV placed and phenylephrine added to dopamine. If emergent need, pts dialysis catheter can be accessed. Present abx continued, based on sensitivities, ertapenem and zosyn appear to be optimal. Vanco added. 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 Cardio/Vascular: Yes: Hyperlipdemia Pulmonary: Yes: COPD Gastrointestinal: Yes: GERD Renal/: Yes: Renal Failure, Hemodialysis Endocrine: Yes: Diabetes Mellitus, Hypothyroidism - Alcohol/Substance Use Hx Alcohol Use: No - Smoking History Smoking history: Never smoked - Social History Usual Living Arrangement: [facility] Home Medications - Allergies Allergies/Adverse Reactions: Allergies Allergy/AdvReac Type Severity Reaction Status Date / Time No Known Allergies Allergy Verified 11/12/16 02:07 - Home Medications Home Medications: Ambulatory Orders Atorvastatin Ca [Lipitor] 80 mg PO HS 11/12/16 Esomeprazole Magnesium 40 mg PO DAILY 11/12/16 Ferrous Sulfate 325 mg PO DAILY 11/12/16 Hydrocortisone 20 mg PO DAILY 11/12/16 Levothyroxine [Synthroid -] 50 mcg PO DAILY 11/12/16 Magnesium Hydroxide [Milk of Magnesia] 400 mg PO DAILY 11/12/16 Midodrine HCl 5 mg PO DAILY 11/12/16 Sevelamer Carbonate [Renvela] 800 mg PO DAILY 11/12/16 Vitamin B Comp W-C [Nephro-Daily -] 1 tablet PO DAILY 11/12/16 Family Disease History - Family Disease History Other Family History: non-contributory Review of Systems Unable to obtain ROS, reason: pt non-verbal Physical Exam Vital Signs: Vital Signs Temperature 97.1 F L 11/25/16 02:30 Pulse Rate 60 11/25/16 02:30 Respiratory Rate 18 11/25/16 02:30 Blood Pressure 68/28 11/25/16 02:35 O2 Sat by Pulse Oximetry (%) 93 L 11/25/16 00:51 Neck: Yes: Rigid Cardiovascular: Yes: Regular Rate and Rhythm Respiratory: Yes: Mechanically Ventilated, Rhonchi Gastrointestinal: Yes: Hypoactive Bowel Sounds Musculoskeletal: Yes: Other (contracted) Edema: LUE: 4+, RUE: 4+, LLE: 4+, RLE: 4+ Integumentary: Yes: Pressure Ulcer, Venous Stasis Changes Neurological: Yes: Unresponsive Labs: CBCD WBC 3.2 K/mm3 (4.0-10.0) L 11/24/16 08:10 RBC 2.64 M/mm3 (4.00-5.60) L 11/24/16 08:10 Hgb 8.1 GM/dL (11.7-16.9) L D 11/24/16 08:10 Hct 24.5 % (35.4-49) L 11/24/16 08:10 MCV 92.6 fl (80-96) 11/24/16 08:10 MCHC 33.1 g/dl (32.0-35.9) 11/24/16 08:10 RDW 22.7 % (11.9-15.9) H 11/24/16 08:10 Plt Count 28 K/MM3 (134-434) L* 11/24/16 08:10 MPV 10.8 fl (7.5-11.1) 11/24/16 08:10 CMP Sodium 145 mmol/L (136-145) 11/24/16 08:20 Potassium 3.3 mmol/L (3.5-5.1) L 11/24/16 08:20 Chloride 106 mmol/L (98-107) 11/24/16 08:20 Carbon Dioxide 27 mmol/L (21-32) 11/24/16 08:20 Anion Gap 12 (8-16) 11/24/16 08:20 BUN 49 mg/dL (7-18) H D 11/24/16 08:20 Creatinine 1.7 mg/dL (0.7-1.3) H D 11/24/16 08:20 Creat Clearance w eGFR 27.71 (>60) 11/18/16 09:45 Calcium 7.2 mg/dL (8.5-10.1) L 11/24/16 08:20 Total Bilirubin 0.8 mg/dL (0.2-1.0) 11/18/16 09:45 AST 20 U/L (15-37) 11/18/16 09:45 ALT 19 U/L (12-78) 11/18/16 09:45 Alkaline Phosphatase 268 U/L (45-117) H D 11/18/16 09:45 Total Protein 4.7 g/dl (6.4-8.2) L 11/18/16 09:45 Albumin 2.1 g/dl (3.4-5.0) L D 11/22/16 07:00 Imaging - Results Chest X-ray: Pending Problem List - Problems (1) Fluid overload Code(s): E87.70 - FLUID OVERLOAD, UNSPECIFIED (2) History of CVA (cerebrovascular accident) Code(s): Z86.73 - PRSNL HX OF TIA (TIA), AND CEREB INFRC W/O RESID DEFICITS (3) Hypotension Code(s): I95.9 - HYPOTENSION, UNSPECIFIED Qualifiers: Hypotension type: unspecified hypotension type Qualified Code(s): I95.9 - Hypotension, unspecified (4) Pressure ulcer Code(s): L89.90 - PRESSURE ULCER OF UNSPECIFIED SITE, UNSPECIFIED STAGE (5) Respiratory failure Code(s): J96.90 - RESPIRATORY FAILURE, UNSP, UNSP W HYPOXIA OR HYPERCAPNIA (6) Sacral decubitus ulcer, stage IV Code(s): L89.154 - PRESSURE ULCER OF SACRAL REGION, STAGE 4 (7) Sepsis Code(s): A41.9 - SEPSIS, UNSPECIFIED ORGANISM Qualifiers: Sepsis type: sepsis due to unspecified organism Qualified Code(s): A41.9 - Sepsis, unspecified organism (8) Septic shock Code(s): A41.9 - SEPSIS, UNSPECIFIED ORGANISM R65.21 - SEVERE SEPSIS WITH SEPTIC SHOCK (9) Thrombocytopenia Code(s): D69.6 - THROMBOCYTOPENIA, UNSPECIFIED Assessment/Plan 76 y/o man with history of hypotension, hypothyroidism, DM, COPD, ESRD, GERD, CVA s/p trach and gastrostomy, ID resident who initially presented from [facility] for coffee ground emesis, found to be bacteremic presumably from sacral decub , course c/b shock which resolved and he was transferred to floor however now with recurrent shock readmitted to ICU CV: shock, presumably septic given bacteremia and known MDR colinization -continue dopamine and phenylephrine -abx as outlined below -trend lactate -sepsis dose steroids ID: Polymicrobial infection, known recent bacteremia and new shock in setting of known MDR organisms despite appropriate abx -continue abx: ertapenem and zosyn given susceptibilities -will add vanco for gram positive coverage given decompensation -continue fluconazole for antifungal coverage -repeat blood cultures -repeat CXR -pt with indwelling lines however due to poor alternate access, unable to remove indwelling lines at this time -consult ID as needed Pulm: Chronic respiratory faliure -continue mechanical ventilation Renal: ESRD; hypernatremia -pt will need CVVH, will not tolerate HD given shock -monitor for acute indications for initiation for CVVH -free water for hypernatremia, if CVVH initiated will likely correct Heme: DIC in setting of severe sepsis -trend CBC, coags and transfuse as needed GI: admitted with coffee ground emesis, presumably UGIB now resolved -continue PPI -will hold feeds at present given degree of shock Neuro: at baseline -monitor -pain control as needed Endo: hypothyroidism -synthroid -fingersticks and insulin as needed PPX: -PPI -no heparin at present given thrombocytopenia Dispo: FULL CODE -would continue goals of care discussions as pt with very poor prognosis and minimal additional interventions, none of which would likely change outcome
[2016-11-25] MEDS: HYDROCORTISONE SOD SUCCINATE 100 MG/2 ML VIAL IVPB SCH ×4 (06:49→21:34)
[2016-11-25] MEDS: BANATROL PLUS POWDER PACKET PEG SCH ×3 (06:53→22:45)
[2016-11-25] MEDS ORDERED: VANCOMYCIN 1,250 MG in DEXTROSE 5%-WATER - 250 ML IVPB ONE (07:00)
[2016-11-25 07:33] LABS: ARTERIAL BLD GAS O2 SATURATION 92.8 % (90-98.9); ARTERIAL BLOOD GAS BASE EXCESS -2.2 meq/l (-2-2); ARTERIAL BLOOD GAS HCO3 21.5 meq/L (22-26); ARTERIAL BLOOD GAS PO2 70.1 mmHg (70-100)
[2016-11-25 07:34] LABS: ALLENS TEST POSITIVE; ART PUNCT SITE LEFT RADIAL; LPM/O2% 100; MECH. VENT. YES; PT. ON O2? YES; TYPE OF O2 VENT; VENT RATE 12; VT/PRESS 450
[2016-11-25] MEDS ORDERED: ALBUTEROL SO4 2.5/IPRATROPIUM 0.5 INH SOL 3 ML VIAL.NEB. NEB ONE (08:15)
--- NOTE | 2016-11-25 08:40 | PN ---
Progress Note, Physician Chief Complaint: intububated and on dopamine History of Present Illness: Nonverbal, recent course summarized below: 76 y/o man with history of hypotension, hypothyroidism, DM, COPD, ESRD, GERD, CVA s/p trach and gastrostomy, [place] resident who initially presented from [facility] for coffee ground emesis, found to be bacteremic presumably from sacral decub , course c/b shock which resolved and he was transferred to floor however now with recurrent shock readmitted to ICU. Around 2:30am, pts BP noted to be 60s/20s. He was given 500cc NS with improvement to 70s/40s however he subsequently dropped back to 60s and was transferred to ICU on dopamine gtt via PIV. Pts son was contacted and son expressed understanding however continued to want everything done. On arrival to ICU pts BP 80s despite dopamime @ 20mcg. Consent obtained and L IJ TLC attempted however unable to thread wire past trochar needle, suspect stenotic vessel given images on ultrasound and old subclavian scaring. L femoral TLC attempted but given pts significant edema and contracted legs, unable to obtain access. PIV placed and phenylephrine added to dopamine. If emergent need, pts dialysis catheter can be accessed. Present abx continued, based on sensitivities, ertapenem and zosyn appear to be optimal. Vanco added. - Current Medication List Current Medications: Active Medications Amino Acids (Prosource No Carb Liquid Pkt) 30 ml PO BID@0800,1730 [facility] Bacitracin (Bacitracin -) 1 applic TP DAILY [facility] Clotrimazole (Lotrimin 1% Solution -) 1 applic TP BID STEVEN Collagenase (Santyl -) 1 applic TP DAILY STEVEN Epoetin Rigoberto (Epogen -) 6,000 units IVPUSH ONCE ONE Stop: 11/25/16 16:02 Fluconazole (Diflucan 40mg/Ml Suspension -) 200 mg PEG DAILY STEVEN Hydrocortisone Sodium Succinate (Solu-Cortef -) 50 mg IVPB Q6H-IV STEVEN Last Admin: 11/25/16 06:49 Dose: 50 mg Dopamine HCl/Dextrose (Dopamine 400 Mg/D5w -) 250 mls @ 16.542 mls/hr IVPB TITR STEVEN; 5 MCG/KG/MIN PRN Reason: Protocol Last Admin: 11/25/16 03:35 Dose: 66.168 mls/hr Piperacillin Sod/Tazobactam Sod (Zosyn 2.25gm Ivpb (Pre-Docked)) 50 mls @ 100 mls/hr IVPB Q8H-IV STEVEN PRN Reason: Protocol Ertapenem 1 gm/ Sodium (Chloride) 50 mls @ 100 mls/hr IVPB DAILY STEVEN PRN Reason: Protocol Phenylephrine HCl 10,000 mcg/ (Dextrose) 500 mls @ 300 mls/hr IV TITR STEVEN; 100 MCG/MIN PRN Reason: Protocol Last Admin: 11/25/16 04:45 Dose: 300 mls/hr Insulin Aspart (Novolog Vial Sliding Scale -) 1 vial SQ Q6HPO STEVEN PRN Reason: Protocol Last Admin: 11/25/16 06:53 Dose: Not Given Ketoconazole (Nizoral 2% Cream -) 1 applic TP DAILY STEVEN Pantoprazole Sodium (Protonix Packets For Oral Suspension -) 40 mg NGT DAILY STEVEN Potassium Chloride (Kcl Oral Solution -) 20 meq PO DAILY STEVEN Potassium Phos/Sodium Phos (Phos-Nak Packet -) 1 packet PO BID STEVEN - Objective Vital Signs: Vital Signs Temperature 97.2 F L 11/25/16 03:15 Pulse Rate 94 H 11/25/16 08:00 Respiratory Rate 22 11/25/16 08:00 Blood Pressure 108/82 11/25/16 08:00 O2 Sat by Pulse Oximetry (%) 100 11/25/16 08:34 Constitutional: Yes: Other (+ ETT) Cardiovascular: Yes: Regular Rate and Rhythm Respiratory: Yes: Other (= breath sounds b/l) Gastrointestinal: Yes: Soft Edema: No Neurological: Yes: Other (nonverbal on vent) Labs: CBC, BMP 11/24/16 08:10 11/24/16 08:20 INR, PTT INR 1.68 (0.82-1.09) H 11/24/16 08:10 Fibrinogen 220.0 mg/dL (238-498) L 11/24/16 08:10 - ....Imaging EKG: Image Reviewed (Sinus tach) Assessment/Plan 76 year old man with a history of hypotension on midodrine, hld, DMII, COPD, ESRD on HD, CVA 2009, tracheostomy with vent dependence, recent long hospital stay at [facility] with septic shock, anoxic encephalopathy, sent to NH, admitted with possible UGIB and septic shock now with recurrent hypotension and presumed septic shock REC: Vent support Pancultures Pressors to maintain MAP 60 Abx per ICU team Tele as he has had PAF earlier in admission but was not anticoagulated due to UGIB
[2016-11-25] MEDS ORDERED: morphine CARPU-JECT 2 MG/1 ML DISP.SYRIN IVPUSH PRN (09:23)
[2016-11-25] MEDS: AMINO ACIDS/PROTEIN HYDROLYS 30 ML LIQUID.PKT PO SCH ×2 (09:27→16:39)
[2016-11-25] MEDS: BACITRACIN 30 GM TUBE TOPICAL OINTMENT TP SCH (09:33)
[2016-11-25] MEDS: CLOTRIMAZOLE 1%TOPICAL SOLUTION 30 ML BOTTLE TP SCH ×2 (09:34→21:41)
[2016-11-25] MEDS: KETOCONAZOLE 2% CREAM - 60GM TUBE TP SCH (09:34)
[2016-11-25] MEDS: COLLAGENASE CLOSTRIDIUM HIST. 30 GRAMS TUBE TP SCH (09:34)
[2016-11-25] MEDS: ERTAPENEM SODIUM 1 GM in SODIUM CHLORIDE 50 ML IVPB SCH (09:51)
[2016-11-25] MEDS: POTASSIUM CHLORIDE 40 MEQ/30 ML UNIT DOSE CUP PO SCH (09:51)
[2016-11-25] MEDS: NAPH,MB-DB/K PH,MBDB POWDER PACKET PO SCH ×2 (09:51→21:35)
[2016-11-25] MEDS: PANTOPRAZOLE SOD 40 MG SUSPENSION PACKET NGT SCH (09:52)
[2016-11-25] MEDS ORDERED: HYDROCORTISONE SOD SUCCINATE 100 MG/2 ML VIAL IVPB SCH (10:00)
[2016-11-25] MEDS ORDERED: ERTAPENEM SODIUM 1 GM in SODIUM CHLORIDE 50 ML IVPB SCH (10:00)
[2016-11-25] MEDS: FLUCONAZOLE 40 MG/ML SUSPENSION 35 ML BOTTLE PEG SCH (11:11)
[2016-11-25] MEDS ORDERED: HEMOQUE TEST 1 EACH EACH ONE (12:08)
--- NOTE | 2016-11-25 12:12 | PN ---
Teaching Attending Note Name of Resident: Cl Torre ATTENDING PHYSICIAN STATEMENT I saw and evaluated the patient. I reviewed the resident's note and discussed the case with the resident. I agree with the resident's findings and plan as documented. SUBJECTIVE: Pt seen and examined in the ICU. Transferred down for hypotensive episode, started on phenylephrine and dopamine gtts. OBJECTIVE: Last Vital Signs Temp Pulse Resp BP Pulse Ox 94 F L 88 16 105/76 99 11/25/16 10:31 11/25/16 11:32 11/25/16 12:05 11/25/16 11:40 11/25/16 10:25 Intake & Output 11/22/16 11/23/16 11/24/16 11/25/16 23:59 23:59 23:59 23:59 Intake Total 1951 1265 1390 Balance 1951 1265 1390 Weight 191 lb 12.8 oz 194 lb 8 oz 194 lb Gen: vented, poorly responsive Heart: RRR Lung: scattered rhonchi Abd: soft, edematous Ext: + edema, multiple ulcers CBC, BMP 11/24/16 08:10 11/24/16 08:20 Active Medications Amino Acids (Prosource No Carb Liquid Pkt) 30 ml PO BID@0800,1730 STEVEN Last Admin: 11/25/16 09:27 Dose: 30 ml Bacitracin (Bacitracin -) 1 applic TP DAILY STEVEN Last Admin: 11/25/16 09:33 Dose: 1 applic Clotrimazole (Lotrimin 1% Solution -) 1 applic TP BID STEVEN Last Admin: 11/25/16 09:34 Dose: 1 applic Collagenase (Santyl -) 1 applic TP DAILY STEVEN Last Admin: 11/25/16 09:34 Dose: 1 applic Epoetin Rigoberto (Epogen -) 6,000 units IVPUSH ONCE ONE Stop: 11/25/16 16:02 Fluconazole (Diflucan 40mg/Ml Suspension -) 200 mg PEG DAILY STEVEN Last Admin: 11/25/16 11:11 Dose: 200 mg Hydrocortisone Sodium Succinate (Solu-Cortef -) 50 mg IVPB Q6H-IV STEVEN Last Admin: 11/25/16 09:32 Dose: 50 mg Dopamine HCl/Dextrose (Dopamine 400 Mg/D5w -) 250 mls @ 16.542 mls/hr IVPB TITR STEVEN; 5 MCG/KG/MIN PRN Reason: Protocol Last Titration: 11/25/16 11:13 Dose: 15 mcg/kg/min Piperacillin Sod/Tazobactam Sod (Zosyn 2.25gm Ivpb (Pre-Docked)) 50 mls @ 100 mls/hr IVPB Q8H-IV STEVEN PRN Reason: Protocol Last Admin: 11/25/16 09:52 Dose: 100 mls/hr Ertapenem 1 gm/ Sodium (Chloride) 50 mls @ 100 mls/hr IVPB DAILY STEVEN PRN Reason: Protocol Last Admin: 11/25/16 09:51 Dose: 100 mls/hr Insulin Aspart (Novolog Vial Sliding Scale -) 1 vial SQ Q6HPO STEVEN PRN Reason: Protocol Last Admin: 11/25/16 06:53 Dose: Not Given Ketoconazole (Nizoral 2% Cream -) 1 applic TP DAILY [facility] Last Admin: 11/25/16 09:34 Dose: 1 applic Morphine Sulfate (Morphine Injection -) 1 mg IVPUSH Q4H PRN PRN Reason: PAIN Pantoprazole Sodium (Protonix Packets For Oral Suspension -) 40 mg NGT DAILY [facility] Last Admin: 11/25/16 09:52 Dose: 40 mg Potassium Chloride (Kcl Oral Solution -) 20 meq PO DAILY STEVEN Last Admin: 11/25/16 09:51 Dose: 20 meq Potassium Phos/Sodium Phos (Phos-Nak Packet -) 1 packet PO BID STEVEN Last Admin: 11/25/16 09:51 Dose: 1 packet ASSESSMENT AND PLAN: Sacral Decubitus Ulcer Infection Gram Positive Bacteremia Septic Shock ESRD on HD Chronic Respiratory Failure Chronic Hypotension h/o CVA Anoxic Encephalopathy Anemia Thrombocytopenia - taper off pressors - tolerate MAP >50 - continue antibiotics per ID - wound care - started on stress dose steroids - midodrine - HD per renal - poor prognosis for any meaningful recovery, approaching medical futility, recommend palliative care - DVT/GI prophylaxis
[2016-11-25] MEDS ORDERED: DOPamine HCL 400 MG/10 ML VIAL ONE (12:51)
--- NOTE | 2016-11-25 14:04 | PN ---
Physical Exam: SUBJECTIVE: Patient seen and examined patient lying in bed, non verbal. on mechanical ventilation. on dopa and phenylephrine family not present OBJECTIVE: Vital Signs Period Temp Pulse Resp BP Sys/Vang Pulse Ox Last 24 Hr 94 F-97.3 F 40-100 12-24 61-120/28-91 93-100 GENERAL: The patient is nonverbal, contracted, lying in bed, open his eyes HEAD: Normal with no signs of trauma. EYES: right eye operated, left eye 2 mm slugish reacting ENT: moist oral mucosa , nares patent NECK: tracheostomy present, attached to venti. LUNGS: decreased Breath sounds BL base , diffuse ronchi HEART: 1s2 normal, regular. ABDOMEN: Soft, nontender, g tube in situ, lower EXTREMITIES: swollen, multiple ulcers present on b/l lower extremities. upper extremities swollen, pedal edema present MUSCULOSKELETAL: Contracted, bed sore on sacrum present. PSYCH: Unable to access SKIN: Warm, dry,multiple pressure ulcers (on feet, calves, back, gluteal region ) with Decubitus Ulcer Laboratory Results - last 24 hr 11/24/16 11/24/16 11/25/16 17:04 22:45 06:07 Puncture Site ABG pH ABG pCO2 at Pt Temp ABG pO2 at Pt Temp ABG HCO3 ABG O2 Sat (Measured) ABG O2 Content ABG Base Excess Ron Test O2 Delivery Device Oxygen Flow Rate Vent Mode Vent Rate Mechanical Rate PEEP Pressure Support Vent POC Glucometer [id number] 11/25/16 07:25 Puncture Site Left radial ABG pH 7.40 ABG pCO2 at Pt Temp 35.3 D ABG pO2 at Pt Temp 70.1 D ABG HCO3 21.5 L ABG O2 Sat (Measured) 92.8 ABG O2 Content 13.6 L ABG Base Excess -2.2 L Ron Test Positive O2 Delivery Device Vent Oxygen Flow Rate 100 Vent Mode A/c Vent Rate 12 Mechanical Rate Yes PEEP 5.0 Pressure Support Vent 450 POC Glucometer Active Medications Generic Name Dose Route Start Last Admin Trade Name Freq PRN Reason Stop Dose Admin Amino Acids 30 ml 11/25/16 08:00 11/25/16 09:27 Prosource No Carb Liquid Pkt PO 30 ml BID@0800,1730 STEVEN Administration Bacitracin 1 applic 11/25/16 10:00 11/25/16 09:33 Bacitracin - TP 1 applic DAILY STEVEN Administration Clotrimazole 1 applic 11/25/16 10:00 11/25/16 09:34 Lotrimin 1% Solution - TP 1 applic BID STEVEN Administration Collagenase 1 applic 11/25/16 10:00 11/25/16 09:34 Santyl - TP 1 applic DAILY STEVEN Administration Epoetin Rigoberto 6,000 units 11/25/16 16:01 Epogen - IVPUSH 11/25/16 16:02 ONCE ONE Fluconazole 200 mg 11/25/16 10:00 11/25/16 11:11 Diflucan 40mg/Ml Suspension - PEG 200 mg DAILY STEVEN Administration Hydrocortisone Sodium Succinate 50 mg 11/25/16 05:30 11/25/16 09:32 Solu-Cortef - IVPB 50 mg Q6H-IV STEVEN Administration Dopamine HCl/Dextrose 250 mls @ 16.542 mls/hr 11/25/16 03:35 11/25/16 13:52 Dopamine 400 Mg/D5w - IVPB 7 mcg/kg/min TITR STEVEN Titration Protocol 5 MCG/KG/MIN Piperacillin Sod/Tazobactam Sod 50 mls @ 100 mls/hr 11/25/16 10:00 11/25/16 09: 52 Zosyn 2.25gm Ivpb (Pre-Docked) IVPB 100 mls/hr Q8H-IV STEVEN Administration Protocol Ertapenem 1 gm/ Sodium 50 mls @ 100 mls/hr 11/25/16 10:00 11/25/16 09:51 Chloride IVPB 100 mls/hr DAILY STEVEN Administration Protocol Insulin Aspart 1 vial 11/25/16 06:00 11/25/16 12:42 Novolog Vial Sliding Scale - SQ 6 units Q6HPO STEVEN Administration Protocol Ketoconazole 1 applic 11/25/16 10:00 11/25/16 09:34 Nizoral 2% Cream - TP 1 applic DAILY STEVEN Administration Morphine Sulfate 1 mg 11/25/16 09:23 Morphine Injection - IVPUSH Q4H PRN PAIN Pantoprazole Sodium 40 mg 11/25/16 10:00 11/25/16 09:52 Protonix Packets For Oral Suspension - NGT 40 mg DAILY STEVEN Administration Potassium Chloride 20 meq 11/25/16 10:00 11/25/16 09:51 Kcl Oral Solution - PO 20 meq DAILY STEVEN Administration Potassium Phos/Sodium Phos 1 packet 11/25/16 10:00 11/25/16 09:51 Phos-Nak Packet - PO 1 packet BID STEVEN Administration ASSESSMENT/PLAN: This is a 76 yo M with PMH of hypotension, HLD, hypothyroidism, DM, COPD, ESRD, GERD, s/p tracheostomy, s/p gastrostomy presented to ER from [facility] for coffee ground emesis. Septic shock -likley source sacral decubitus ulcer - on ertapenem 8 and zosyn 10 -ID consult appreciated -wound culture: pseudomonas, ESBL -strict I and O (anuric) - monitor vitals - follow blood, urine culture - Taper dopamin and phenylephrine Tinea Corporis on clotrimazole, ketoconazoel and flucan Diarrhea -rectal tube -C diff toxin negative x 2 Hypothermia -john echoer PRN ESRD on HD -HD as per nephrology -nephro consult appreciated Acute on chronic Anemia -total 3u pRBC this admission h/o gi bleed -hgb stable -monitor h/h -epogen -continue IV PPI BID DIC could from sepsis low platelet, inr elevated, fibrinogen trending up if bleed give cryoprecipitate DM -BGM q6 -sliding scale Anoxic Encephalopathy -unresponsive -unlikely to have meaningful recovery -grave prognosis -palliative care consult spoke with family -Family wishes full code due to gnosticism reasons FEN on IV fluid repete lytes in morning continue tube feed dispo: in icu Visit type - Emergency Visit Emergency Visit: Yes ED Registration Date: 11/12/16 Care time: The patient presented to the Emergency Department on the above date and was hospitalized for further evaluation of their emergent condition. - New Patient This patient is new to me today: No - Critical Care Critical Care patient: Yes Total Critical Care Time (in minutes): 45 Critical Care Statement: The care of this patient involved high complexity decision making to prevent further life threatening deterioration of the patient 's condition and/or to evalute & treat vital organ system(s) failure or risk of failure.
--- NOTE | 2016-11-25 14:13 | PN ---
Physical Exam: SUBJECTIVE: Patient seen and examined Patient resting in bed, opening eyes spontaneously. 97.2 F on john hugger this AM. BP dropped to 63/29 overnight, did not respond well to 500 cc fluid bolus. Was transferred to ICU, now pressure 93/72 (MAP80) on Dopamine @20 and Phenylephrine @50. Patient more edematous. Family informed and explained the situation, they insist of full code. Loose light brown diarrhea in rectal tube. No bleeding. No hematemesis. Anuric. OBJECTIVE: Vital Signs Period Temp Pulse Resp BP Sys/Vang Pulse Ox Last 24 Hr 94 F-97.3 F 40-100 12-24 61-120/28-91 93-100 GENERAL: unresponsive, opens eyes. 3+ anasarca HEAD: Normal with no signs of trauma. EYES: sclera anicteric, conjunctiva clear. ENT: moist mucous membranes. NECK: supple. LUNGS: diffuse ronchi, trach, vent. HEART: Regular rate and rhythm, S1, S2 ABDOMEN: Soft, mildly distended, globally reduced bowel sounds, feels hard because of edema (increased) Peg in place leaking, dermatitis around peg EXTREMITIES: 1+ pulses, warm, 3+ edema. b/l pressure ulcers on heels with black echar. clean dressing in place Sacrum: unstageable pressure ulcer with yellow echar, malodorous. NEUROLOGICAL: symmetrical face PSYCH: unable to assess SKIN: Warm, dry, tinea corporis diffusely on abdomen, chest Laboratory Results - last 24 hr 11/24/16 11/24/16 11/25/16 17:04 22:45 06:07 Puncture Site ABG pH ABG pCO2 at Pt Temp ABG pO2 at Pt Temp ABG HCO3 ABG O2 Sat (Measured) ABG O2 Content ABG Base Excess Ron Test O2 Delivery Device Oxygen Flow Rate Vent Mode Vent Rate Mechanical Rate PEEP Pressure Support Vent POC Glucometer [id number] 11/25/16 07:25 Puncture Site Left radial ABG pH 7.40 ABG pCO2 at Pt Temp 35.3 D ABG pO2 at Pt Temp 70.1 D ABG HCO3 21.5 L ABG O2 Sat (Measured) 92.8 ABG O2 Content 13.6 L ABG Base Excess -2.2 L Ron Test Positive O2 Delivery Device Vent Oxygen Flow Rate 100 Vent Mode A/c Vent Rate 12 Mechanical Rate Yes PEEP 5.0 Pressure Support Vent 450 POC Glucometer Active Medications Generic Name Dose Route Start Last Admin Trade Name Armando PRN Reason Stop Dose Admin Amino Acids 30 ml 11/25/16 08:00 11/25/16 09:27 Prosource No Carb Liquid Pkt PO 30 ml BID@0800,1730 STEVEN Administration Bacitracin 1 applic 11/25/16 10:00 11/25/16 09:33 Bacitracin - TP 1 applic DAILY STEVEN Administration Clotrimazole 1 applic 11/25/16 10:00 11/25/16 09:34 Lotrimin 1% Solution - TP 1 applic BID STEVEN Administration Collagenase 1 applic 11/25/16 10:00 11/25/16 09:34 Santyl - TP 1 applic DAILY STEVEN Administration Epoetin Rigoberto 6,000 units 11/25/16 16:01 Epogen - IVPUSH 11/25/16 16:02 ONCE ONE Fluconazole 200 mg 11/25/16 10:00 11/25/16 11:11 Diflucan 40mg/Ml Suspension - PEG 200 mg DAILY STEVEN Administration Hydrocortisone Sodium Succinate 50 mg 11/25/16 05:30 11/25/16 09:32 Solu-Cortef - IVPB 50 mg Q6H-IV STEVEN Administration Dopamine HCl/Dextrose 250 mls @ 16.542 mls/hr 11/25/16 03:35 11/25/16 13:52 Dopamine 400 Mg/D5w - IVPB 7 mcg/kg/min TITR STEVEN Titration Protocol 5 MCG/KG/MIN Piperacillin Sod/Tazobactam Sod 50 mls @ 100 mls/hr 11/25/16 10:00 11/25/16 09: 52 Zosyn 2.25gm Ivpb (Pre-Docked) IVPB 100 mls/hr Q8H-IV STEVEN Administration Protocol Ertapenem 1 gm/ Sodium 50 mls @ 100 mls/hr 11/25/16 10:00 11/25/16 09:51 Chloride IVPB 100 mls/hr DAILY STEVEN Administration Protocol Insulin Aspart 1 vial 11/25/16 06:00 11/25/16 12:42 Novolog Vial Sliding Scale - SQ 6 units Q6HPO STEVEN Administration Protocol Ketoconazole 1 applic 11/25/16 10:00 11/25/16 09:34 Nizoral 2% Cream - TP 1 applic DAILY STEVEN Administration Morphine Sulfate 1 mg 11/25/16 09:23 Morphine Injection - IVPUSH Q4H PRN PAIN Pantoprazole Sodium 40 mg 11/25/16 10:00 11/25/16 09:52 Protonix Packets For Oral Suspension - NGT 40 mg DAILY STEVEN Administration Potassium Chloride 20 meq 11/25/16 10:00 11/25/16 09:51 Kcl Oral Solution - PO 20 meq DAILY STEVEN Administration Potassium Phos/Sodium Phos 1 packet 11/25/16 10:00 11/25/16 09:51 Phos-Nak Packet - PO 1 packet BID STEVEN Administration ASSESSMENT/PLAN: This is a 76 yo M with PMH of hypotension, HLD, hypothyroidism, DM, COPD, ESRD, GERD, s/p tracheostomy, s/p gastrostomy presented to ER from [facility] for coffee ground emesis. Septic shock -likley source sacral decubitus ulcer -unstageable ulcer -evaluated by wound care. -no need for debridement at this time, dressing changes. Not healing -Gram Positive Bacteremia. Repeat culture negative -Lactic Acidosis -ID consult appreciated -wound culture: pseudomonas, ESBL -ertapenem day 8 and zosyn d 10 -strict I and O (anuric) -DIC still present -wean dopamine and phenylephrine PEG leaking air, tube feed contents -GI consult to adjust contacted yesterday -hold feeds -KUB previously nonobstructive -Repeat KUB Tinea Corporis -lotrimin TP -diflucan 200 daily x7 Dermatitis -on penis, around peg -bacitracin ointment Diarrhea -likely due to abx treatment -rectal tube -C diff toxin negative x 2 Hypothermia -john hugger PRN ESRD on HD -might hold HD while on pressors -nephro consult appreciated Chronic Hypotension -wean off pressors -Map>65 -hydrocortisone 50 q6 Acute on chronic Anemia -aggravated by GIB -coffee ground emesis resolved -total 3u pRBC this admission -hgb stable -monitor h/h -epogen -IV PPI BID DIC -due to sepsis -fibrinogen trending up -trend coags -Heme consult apprecited -no active bleed -Platelets 30's DM -BGM q6 -sliding scale Anoxic Encephalopathy -unresponsive -unlikely to have meaningful recovery -grave prognosis -palliative care consult spoke with family -Family wishes full code due to presybeterian reasons FEN no IVF replete lytes prn tube feeds adjusted per camp head counselor recommendation Consulted medical ethics Dispo: ICU Problem List - Problems (1) GORDON (acute kidney injury) Code(s): N17.9 - ACUTE KIDNEY FAILURE, UNSPECIFIED (2) Anasarca Code(s): R60.1 - GENERALIZED EDEMA (3) Anemia Code(s): D64.9 - ANEMIA, UNSPECIFIED (4) CHF (congestive heart failure) Code(s): I50.9 - HEART FAILURE, UNSPECIFIED (5) CKD (chronic kidney disease) Code(s): N18.9 - CHRONIC KIDNEY DISEASE, UNSPECIFIED (6) Elevated INR Code(s): R79.1 - ABNORMAL COAGULATION PROFILE (7) Elevated brain natriuretic peptide (BNP) level Code(s): R79.89 - OTHER SPECIFIED ABNORMAL FINDINGS OF BLOOD CHEMISTRY (8) Fluid overload Code(s): E87.70 - FLUID OVERLOAD, UNSPECIFIED (9) History of CVA (cerebrovascular accident) Code(s): Z86.73 - PRSNL HX OF TIA (TIA), AND CEREB INFRC W/O RESID DEFICITS (10) Hypoalbuminemia Code(s): E88.09 - OTH DISORDERS OF PLASMA-PROTEIN METABOLISM, NEC (11) Hypotension Code(s): I95.9 - HYPOTENSION, UNSPECIFIED Qualifiers: Hypotension type: unspecified hypotension type Qualified Code(s): I95.9 - Hypotension, unspecified (12) Passes no urine Code(s): R34 - ANURIA AND OLIGURIA (13) Pressure ulcer Code(s): L89.90 - PRESSURE ULCER OF UNSPECIFIED SITE, UNSPECIFIED STAGE (14) Pressure ulcer of ankle Code(s): L89.509 - PRESSURE ULCER OF UNSPECIFIED ANKLE, UNSPECIFIED STAGE (15) Pressure ulcer of back Code(s): L89.109 - PRESSURE ULCER OF UNSP PART OF BACK, UNSPECIFIED STAGE (16) Sacral decubitus ulcer, stage IV Code(s): L89.154 - PRESSURE ULCER OF SACRAL REGION, STAGE 4 (17) Sepsis Code(s): A41.9 - SEPSIS, UNSPECIFIED ORGANISM Qualifiers: Sepsis type: sepsis due to unspecified organism Qualified Code(s): A41.9 - Sepsis, unspecified organism (18) Septic shock Code(s): A41.9 - SEPSIS, UNSPECIFIED ORGANISM R65.21 - SEVERE SEPSIS WITH SEPTIC SHOCK (19) Thrombocytopenia Code(s): D69.6 - THROMBOCYTOPENIA, UNSPECIFIED (20) Transaminitis Code(s): R74.0 - NONSPEC ELEV OF LEVELS OF TRANSAMNS & LACTIC ACID DEHYDRGNSE (21) Upper GI bleed Code(s): K92.2 - GASTROINTESTINAL HEMORRHAGE, UNSPECIFIED Visit type - Emergency Visit Emergency Visit: Yes ED Registration Date: 11/12/16 Care time: The patient presented to the Emergency Department on the above date and was hospitalized for further evaluation of their emergent condition. - New Patient This patient is new to me today: No - Critical Care Critical Care patient: Yes Total Critical Care Time (in minutes): 47 Critical Care Statement: The care of this patient involved high complexity decision making to prevent further life threatening deterioration of the patient 's condition and/or to evalute & treat vital organ system(s) failure or risk of failure. - Discharge Referral Referred to [facility] Med [facility].: No
--- NOTE | 2016-11-25 15:05 | PN ---
Teaching Attending Note Name of Resident: Ros Dias ATTENDING PHYSICIAN STATEMENT I saw and evaluated the patient. I reviewed the resident's note and discussed the case with the resident. I agree with the resident's findings and plan as documented. Events noted overnight, patient developed septic shock and transferred back to ICU. Patient is nonverbal, Full code as per family. Vital Signs Temperature 94.7 F L 11/25/16 14:00 Pulse Rate 98 H 11/25/16 14:38 Respiratory Rate 16 11/25/16 14:10 Blood Pressure 108/68 11/25/16 14:38 O2 Sat by Pulse Oximetry (%) 99 11/25/16 10:25 CBCD WBC 3.2 K/mm3 (4.0-10.0) L 11/24/16 08:10 RBC 2.64 M/mm3 (4.00-5.60) L 11/24/16 08:10 Hgb 8.1 GM/dL (11.7-16.9) L D 11/24/16 08:10 Hct 24.5 % (35.4-49) L 11/24/16 08:10 MCV 92.6 fl (80-96) 11/24/16 08:10 MCHC 33.1 g/dl (32.0-35.9) 11/24/16 08:10 RDW 22.7 % (11.9-15.9) H 11/24/16 08:10 Plt Count 28 K/MM3 (134-434) L* 11/24/16 08:10 MPV 10.8 fl (7.5-11.1) 11/24/16 08:10 CMP Sodium 145 mmol/L (136-145) 11/24/16 08:20 Potassium 3.3 mmol/L (3.5-5.1) L 11/24/16 08:20 Chloride 106 mmol/L (98-107) 11/24/16 08:20 Carbon Dioxide 27 mmol/L (21-32) 11/24/16 08:20 Anion Gap 12 (8-16) 11/24/16 08:20 BUN 49 mg/dL (7-18) H D 11/24/16 08:20 Creatinine 1.7 mg/dL (0.7-1.3) H D 11/24/16 08:20 Creat Clearance w eGFR 27.71 (>60) 11/18/16 09:45 Random Glucose 182 mg/dL (74-106) H 11/24/16 08:20 Calcium 7.2 mg/dL (8.5-10.1) L 11/24/16 08:20 Total Bilirubin 0.8 mg/dL (0.2-1.0) 11/18/16 09:45 AST 20 U/L (15-37) 11/18/16 09:45 ALT 19 U/L (12-78) 11/18/16 09:45 Alkaline Phosphatase 268 U/L (45-117) H D 11/18/16 09:45 Total Protein 4.7 g/dl (6.4-8.2) L 11/18/16 09:45 Albumin 2.1 g/dl (3.4-5.0) L D 11/22/16 07:00 CARDIAC ENZYMES Creatine Kinase 28 IU/L (39-308) L 11/12/16 01:41 Troponin I 0.08 ng/ml (0.00-0.05) H D 11/12/16 08:10 Current Medications Generic Name Dose Route Start Last Admin Trade Name Freq PRN Reason Stop Dose Admin Amino Acids 30 ml 11/25/16 08:00 11/25/16 09:27 Prosource No Carb Liquid Pkt PO 30 ml BID@0800,1730 STEVEN Administration Bacitracin 1 applic 11/25/16 10:00 11/25/16 09:33 Bacitracin - TP 1 applic DAILY STEVEN Administration Clotrimazole 1 applic 11/25/16 10:00 11/25/16 09:34 Lotrimin 1% Solution - TP 1 applic BID STEVEN Administration Collagenase 1 applic 11/25/16 10:00 11/25/16 09:34 Santyl - TP 1 applic DAILY STEVEN Administration Epoetin Rigoberto 6,000 units 11/25/16 16:01 Epogen - IVPUSH 11/25/16 16:02 ONCE ONE Fluconazole 200 mg 11/25/16 10:00 11/25/16 11:11 Diflucan 40mg/Ml Suspension - PEG 200 mg DAILY STEVEN Administration Hydrocortisone Sodium Succinate 50 mg 11/25/16 05:30 11/25/16 14:37 Solu-Cortef - IVPB 50 mg Q6H-IV STEVEN Administration Dopamine HCl/Dextrose 250 mls @ 16.542 mls/hr 11/25/16 03:35 11/25/16 14:38 Dopamine 400 Mg/D5w - IVPB 4 mcg/kg/min TITR STEVEN Titration Protocol 5 MCG/KG/MIN Piperacillin Sod/Tazobactam Sod 50 mls @ 100 mls/hr 11/25/16 10:00 11/25/16 09: 52 Zosyn 2.25gm Ivpb (Pre-Docked) IVPB 100 mls/hr Q8H-IV STEVEN Administration Protocol Ertapenem 1 gm/ Sodium 50 mls @ 100 mls/hr 11/25/16 10:00 11/25/16 09:51 Chloride IVPB 100 mls/hr DAILY STEVEN Administration Protocol Insulin Aspart 1 vial 11/25/16 06:00 11/25/16 12:42 Novolog Vial Sliding Scale - SQ 6 units Q6HPO STEVEN Administration Protocol Ketoconazole 1 applic 11/25/16 10:00 11/25/16 09:34 Nizoral 2% Cream - TP 1 applic DAILY STEVEN Administration Morphine Sulfate 1 mg 11/25/16 09:23 Morphine Injection - IVPUSH Q4H PRN PAIN Pantoprazole Sodium 40 mg 11/25/16 10:00 11/25/16 09:52 Protonix Packets For Oral Suspension - NGT 40 mg DAILY STEVEN Administration Potassium Chloride 20 meq 11/25/16 10:00 11/25/16 09:51 Kcl Oral Solution - PO 20 meq DAILY STEVEN Administration Potassium Phos/Sodium Phos 1 packet 11/25/16 10:00 11/25/16 09:51 Phos-Nak Packet - PO 1 packet BID STEVEN Administration ASSESSMENT AND PLAN: This is a 76 yo M with PMH of hypotension, HLD, hypothyroidism, DM, COPD, ESRD, GERD, s/p tracheostomy, s/p gastrostomy presented to ER from [facility] for coffee ground emesis. # Septic shock On Dopamine and Neosynephrine likely source sacral decubitus ulcer with unstageable ulcer, wound culture positive for pseudomonas, ESBL , wound is not healing ,Gram Positive Bacteremia. Repeat culture negative , Lactic Acidosis , ID on the case , on IV ertapenem day 8 and zosyn d 10; will ask to see the patient. #DIC, due to sepsis, fibrinogen trending up ,trend coags. Heme consult appreciated, no active bleed, Platelets 30's #Anoxic Encephalopathy ;unresponsive # PEG leaking air, tube feed contents :GI consult to adjust the Peg tube. # Acute Diarrhea, stool for cdiff, and stool culture likely due to abx treatment ;rectal tube; C diff toxin negative x 2 # Acute on chronic Anemia s/p by GIB, coffee ground emesis resolved, s/p 3u pRBC this admission , hemoglobin is 8.1 today. monitor h/h, epogen ,IV PPI BID #ESRD on HD, hold HD while on pressors, nephro consult appreciated # DM SS q6, sliding scale Poor prognosis; palliative care consult spoke with family family wishes full code due to gnosticism reasons Consulted medical ethics
--- NOTE | 2016-11-25 15:41 | PN ---
Progress Note (short form) - Note Progress Note: Patient seen and examined Transferred to ICU Multiple medical issues. Multiple decubiti, / Infected decubit Septic shock Gram Positive bacteremia, Anoxic encephalopathy ESRD/HD Chronic hypotension Anemia Thrombocytopenia/hypofibrinogenemia/coagulopathy-- likely DIC Last Vital Signs Temp Pulse Resp BP Pulse Ox 94.7 F L 98 H 16 108/68 99 11/25/16 14:00 11/25/16 14:38 11/25/16 14:10 11/25/16 14:38 11/25/16 10:25 Ventilator support Decreased breath sounds RSR Abdomen-soft Rectal tube Scrotal Edema Numerous LE decubiti INR, PTT INR 1.68 (0.82-1.09) H 11/24/16 08:10 Fibrinogen 220.0 mg/dL (238-498) L 11/24/16 08:10 CBC, BMP 11/24/16 08:10 11/24/16 08:20 Impression: Problems as outlined above DIC- likely secondary to sepsis Would treat with blood products prn bleeding and procedures. t
--- NOTE | 2016-11-25 16:06 | PN ---
Progress Note, Physician History of Present Illness: patient detoriated hypothermic became hypotensive was transferred to icu multiple rashes now on the front - Current Medication List Current Medications: Active Medications Amino Acids (Prosource No Carb Liquid Pkt) 30 ml PO BID@0800,1730 [facility] Last Admin: 11/25/16 09:27 Dose: 30 ml Bacitracin (Bacitracin -) 1 applic TP DAILY STEVEN Last Admin: 11/25/16 09:33 Dose: 1 applic Clotrimazole (Lotrimin 1% Solution -) 1 applic TP BID STEVEN Last Admin: 11/25/16 09:34 Dose: 1 applic Collagenase (Santyl -) 1 applic TP DAILY STEVEN Last Admin: 11/25/16 09:34 Dose: 1 applic Epoetin Rigoberto (Epogen -) 6,000 units IVPUSH ONCE ONE Stop: 11/25/16 16:02 Fluconazole (Diflucan 40mg/Ml Suspension -) 200 mg PEG DAILY STEVEN Last Admin: 11/25/16 11:11 Dose: 200 mg Hydrocortisone Sodium Succinate (Solu-Cortef -) 50 mg IVPB Q6H-IV STEVEN Last Admin: 11/25/16 14:37 Dose: 50 mg Dopamine HCl/Dextrose (Dopamine 400 Mg/D5w -) 250 mls @ 16.542 mls/hr IVPB TITR STEVEN; 5 MCG/KG/MIN PRN Reason: Protocol Last Titration: 11/25/16 15:30 Dose: 5 mcg/kg/min Piperacillin Sod/Tazobactam Sod (Zosyn 2.25gm Ivpb (Pre-Docked)) 50 mls @ 100 mls/hr IVPB Q8H-IV STEVEN PRN Reason: Protocol Last Admin: 11/25/16 09:52 Dose: 100 mls/hr Ertapenem 1 gm/ Sodium (Chloride) 50 mls @ 100 mls/hr IVPB DAILY STEVEN PRN Reason: Protocol Last Admin: 11/25/16 09:51 Dose: 100 mls/hr Insulin Aspart (Novolog Vial Sliding Scale -) 1 vial SQ Q6HPO STEVEN PRN Reason: Protocol Last Admin: 11/25/16 12:42 Dose: 6 units Ketoconazole (Nizoral 2% Cream -) 1 applic TP DAILY STEVEN Last Admin: 11/25/16 09:34 Dose: 1 applic Morphine Sulfate (Morphine Injection -) 1 mg IVPUSH Q4H PRN PRN Reason: PAIN Pantoprazole Sodium (Protonix Packets For Oral Suspension -) 40 mg NGT DAILY [facility] Last Admin: 11/25/16 09:52 Dose: 40 mg Potassium Chloride (Kcl Oral Solution -) 20 meq PO DAILY [facility] Last Admin: 11/25/16 09:51 Dose: 20 meq Potassium Phos/Sodium Phos (Phos-Nak Packet -) 1 packet PO BID [facility] Last Admin: 11/25/16 09:51 Dose: 1 packet - Objective Vital Signs: Vital Signs Temperature 94.7 F L 11/25/16 14:00 Pulse Rate 96 H 11/25/16 15:30 Respiratory Rate 16 11/25/16 14:10 Blood Pressure 65/48 11/25/16 15:30 O2 Sat by Pulse Oximetry (%) 99 11/25/16 10:25 Constitutional: Yes: Other Eyes: Yes: Conjunctiva Clear Cardiovascular: Yes: Regular Rate and Rhythm Respiratory: Yes: Regular, CTA Bilaterally, Poor Air Entry Gastrointestinal: Yes: Soft, Distention, Other Musculoskeletal: Yes: Other Extremities: Yes: Other (multiple pressure ulcers) Integumentary: Yes: Erythema, Rash, Other (multiple pressure ulcers) Wound/Incision: Yes: Other (decubitus ulcer) Labs: CBC, BMP 11/24/16 08:10 11/24/16 08:20 INR, PTT INR 1.68 (0.82-1.09) H 11/24/16 08:10 Fibrinogen 220.0 mg/dL (238-498) L 11/24/16 08:10 Assessment/Plan decubitus ulcer multiple pressure ulcer infected peg tube site septic shock lactic acidosis hypotension hypothermia esrd cva gram positive bacteremia rash plan continue current mgmt continue abx patients prognosis is poor continue maintaining body temperature await for gi to look at the patient cc 45 min
[2016-11-25] MEDS ORDERED: ALBUMIN HUMAN 25% 12.5 GM/50 ML VIAL IVPB SCH (16:15)
[2016-11-25 16:58] LABS: ALBUMIN 1.8 g/dl (3.4-5.0); CALCIUM 7.1 mg/dL (8.5-10.1); CREATININE 1.8 mg/dL (0.7-1.3); MAGNESIUM 1.7 mg/dL (1.8-2.4); PHOSPHOROUS 3.6 mg/dL (2.5-4.9)
[2016-11-25 16:59] LABS: MCH 30.6 pg (25.7-33.7); MCHC 31.8 g/dl (32.0-35.9); MEAN CELL VOLUME 96.1 fl (80-96); MEAN PLT VOLUME 11.4 fl (7.5-11.1); PLATELET COUNT 46 K/MM3 (134-434); RDW 22.7 % (11.9-15.9); WHITE BLOOD COUNT 2.1 K/mm3 (4.0-10.0)
--- NOTE | 2016-11-25 17:29 | PN ---
Progress Note, Physician History of Present Illness: Pt seen and examined at bedside. He was hypotensive and taken to the ICU. He is now on dopamine. - Current Medication List Current Medications: Active Medications Amino Acids (Prosource No Carb Liquid Pkt) 30 ml PO BID@0800,1730 [facility] Last Admin: 11/25/16 16:39 Dose: 30 ml Bacitracin (Bacitracin -) 1 applic TP DAILY STEVEN Last Admin: 11/25/16 09:33 Dose: 1 applic Clotrimazole (Lotrimin 1% Solution -) 1 applic TP BID STEVEN Last Admin: 11/25/16 09:34 Dose: 1 applic Collagenase (Santyl -) 1 applic TP DAILY STEVEN Last Admin: 11/25/16 09:34 Dose: 1 applic Epoetin Rigoberto (Epogen -) 6,000 units IVPUSH ONCE ONE Stop: 11/25/16 16:02 Fluconazole (Diflucan 40mg/Ml Suspension -) 200 mg PEG DAILY STEVEN Last Admin: 11/25/16 11:11 Dose: 200 mg Hydrocortisone Sodium Succinate (Solu-Cortef -) 50 mg IVPB Q6H-IV STEVEN Last Admin: 11/25/16 14:37 Dose: 50 mg Dopamine HCl/Dextrose (Dopamine 400 Mg/D5w -) 250 mls @ 16.542 mls/hr IVPB TITR STEVEN; 5 MCG/KG/MIN PRN Reason: Protocol Last Titration: 11/25/16 15:30 Dose: 5 mcg/kg/min Piperacillin Sod/Tazobactam Sod (Zosyn 2.25gm Ivpb (Pre-Docked)) 50 mls @ 100 mls/hr IVPB Q8H-IV STEVEN PRN Reason: Protocol Last Admin: 11/25/16 17:25 Dose: 100 mls/hr Ertapenem 1 gm/ Sodium (Chloride) 50 mls @ 100 mls/hr IVPB DAILY STEVEN PRN Reason: Protocol Last Admin: 11/25/16 09:51 Dose: 100 mls/hr Insulin Aspart (Novolog Vial Sliding Scale -) 1 vial SQ Q6HPO STEVEN PRN Reason: Protocol Last Admin: 11/25/16 17:24 Dose: 4 units Ketoconazole (Nizoral 2% Cream -) 1 applic TP DAILY STEVEN Last Admin: 11/25/16 09:34 Dose: 1 applic Morphine Sulfate (Morphine Injection -) 1 mg IVPUSH Q4H PRN PRN Reason: PAIN Pantoprazole Sodium (Protonix Packets For Oral Suspension -) 40 mg NGT DAILY [facility] Last Admin: 11/25/16 09:52 Dose: 40 mg Potassium Chloride (Kcl Oral Solution -) 20 meq PO DAILY [facility] Last Admin: 11/25/16 09:51 Dose: 20 meq Potassium Phos/Sodium Phos (Phos-Nak Packet -) 1 packet PO BID [facility] Last Admin: 11/25/16 09:51 Dose: 1 packet - Objective Vital Signs: Vital Signs Temperature 95 F L 11/25/16 17:23 Pulse Rate 84 11/25/16 17:23 Respiratory Rate 20 11/25/16 17:23 Blood Pressure 80/38 11/25/16 17:23 O2 Sat by Pulse Oximetry (%) 99 11/25/16 10:25 Constitutional: Yes: Calm Eyes: Yes: Conjunctiva Clear Cardiovascular: Yes: S1, S2 Respiratory: Yes: Mechanically Ventilated Gastrointestinal: Yes: Soft Genitourinary: Yes: Anuria Musculoskeletal: Yes: Muscle Weakness Edema: Yes Neurological: Yes: Pre-Existing Deficit Labs: CBC, BMP 11/25/16 15:30 INR, PTT INR 1.68 (0.82-1.09) H 11/24/16 08:10 Fibrinogen 220.0 mg/dL (238-498) L 11/24/16 08:10 Problem List - Problems (1) GORDON (acute kidney injury) Code(s): N17.9 - ACUTE KIDNEY FAILURE, UNSPECIFIED (2) Anasarca Code(s): R60.1 - GENERALIZED EDEMA (3) Anemia Code(s): D64.9 - ANEMIA, UNSPECIFIED (4) CHF (congestive heart failure) Code(s): I50.9 - HEART FAILURE, UNSPECIFIED (5) CKD (chronic kidney disease) Code(s): N18.9 - CHRONIC KIDNEY DISEASE, UNSPECIFIED (6) Fluid overload Code(s): E87.70 - FLUID OVERLOAD, UNSPECIFIED (7) History of CVA (cerebrovascular accident) Code(s): Z86.73 - PRSNL HX OF TIA (TIA), AND CEREB INFRC W/O RESID DEFICITS Assessment/Plan Current Medications Generic Name Dose Route Start Last Admin Trade Name Freq PRN Reason Stop Dose Admin Amino Acids 30 ml 11/25/16 08:00 11/25/16 16:39 Prosource No Carb Liquid Pkt PO 30 ml BID@0800,1730 STEVEN Administration Bacitracin 1 applic 11/25/16 10:00 11/25/16 09:33 Bacitracin - TP 1 applic DAILY STEVEN Administration Clotrimazole 1 applic 11/25/16 10:00 11/25/16 09:34 Lotrimin 1% Solution - TP 1 applic BID STEVEN Administration Collagenase 1 applic 11/25/16 10:00 11/25/16 09:34 Santyl - TP 1 applic DAILY STEVEN Administration Epoetin Rigoberto 6,000 units 11/25/16 16:01 Epogen - IVPUSH 11/25/16 16:02 ONCE ONE Fluconazole 200 mg 11/25/16 10:00 11/25/16 11:11 Diflucan 40mg/Ml Suspension - PEG 200 mg DAILY STEVEN Administration Hydrocortisone Sodium Succinate 50 mg 11/25/16 05:30 11/25/16 14:37 Solu-Cortef - IVPB 50 mg Q6H-IV STEVEN Administration Dopamine HCl/Dextrose 250 mls @ 16.542 mls/hr 11/25/16 03:35 11/25/16 15:30 Dopamine 400 Mg/D5w - IVPB 5 mcg/kg/min TITR STEVEN Titration Protocol 5 MCG/KG/MIN Piperacillin Sod/Tazobactam Sod 50 mls @ 100 mls/hr 11/25/16 10:00 11/25/16 17: 25 Zosyn 2.25gm Ivpb (Pre-Docked) IVPB 100 mls/hr Q8H-IV SETVEN Administration Protocol Ertapenem 1 gm/ Sodium 50 mls @ 100 mls/hr 11/25/16 10:00 11/25/16 09:51 Chloride IVPB 100 mls/hr DAILY STEVEN Administration Protocol Insulin Aspart 1 vial 11/25/16 06:00 11/25/16 17:24 Novolog Vial Sliding Scale - SQ 4 units Q6HPO STEVEN Administration Protocol Ketoconazole 1 applic 11/25/16 10:00 11/25/16 09:34 Nizoral 2% Cream - TP 1 applic DAILY STEVEN Administration Morphine Sulfate 1 mg 11/25/16 09:23 Morphine Injection - IVPUSH Q4H PRN PAIN Pantoprazole Sodium 40 mg 11/25/16 10:00 11/25/16 09:52 Protonix Packets For Oral Suspension - NGT 40 mg DAILY STEVEN Administration Potassium Chloride 20 meq 11/25/16 10:00 11/25/16 09:51 Kcl Oral Solution - PO 20 meq DAILY STEVEN Administration Potassium Phos/Sodium Phos 1 packet 11/25/16 10:00 11/25/16 09:51 Phos-Nak Packet - PO 1 packet BID STEVEN Administration Impression 1. ESRD 2. hypotension 3. chronic respiratory failure 4. sepsis 5. Anemia 6. GI bleed 7. CVA 8. DM 9. Hypothyroidism 10. pancytopenia Plan - will hold off HD today as pt is hypotensive and on pressors - repeat labs in am - will evaluate for HD tomorrow - monitor blood pressure - discussed with ICU team - epogen for anemia - overall prognosis is poor - will follow Dr Mireles
--- NOTE | 2016-11-25 20:02 | PN ---
Progress Note (short form) - Note Progress Note: Ethics Note: expressed a desire for ethics evaluation. Previous family meeting was to be held?? Patient's family is expressing the wish to continue all supportive care due to orthodoxy reasons in spite of the grave prognosis. This decision if it is continued to be held by his surrogates will usually mean we should continue supportive care. A more formal ethics meeting can be planned if the family and the treating health care providers will attend.
[2016-11-26] MEDS: HYDROCORTISONE SOD SUCCINATE 100 MG/2 ML VIAL IVPB SCH ×4 (02:38→21:26)
[2016-11-26] MEDS: PIPERACILLIN/TAZOB 2.25 GM 50 ML IVPB SCH ×3 (02:39→18:41)
[2016-11-26] MEDS ORDERED: HEMOQUE CONTROL SOLUTION ONE (02:55)
[2016-11-26] MEDS: DOPAMINE 400 MG/D5W - 250 ML IVPB SCH (03:00)
[2016-11-26] MEDS: INSULIN SLIDING SCALE (NOVOLOG) 1 VIAL SQ SCH ×4 (05:58→18:42)
[2016-11-26] MEDS: BANATROL PLUS POWDER PACKET PEG SCH ×3 (05:59→21:26)
[2016-11-26] MEDS: AMINO ACIDS/PROTEIN HYDROLYS 30 ML LIQUID.PKT PO SCH ×2 (09:00→17:32)
--- NOTE | 2016-11-26 09:34 | PN ---
Progress Note (short form) - Note Progress Note: Patient seen and examined in the ICU. Remains on Dopamine for hemodynamic support. AC mode of vent. Intake & Output 11/23/16 11/24/16 11/25/16 11/26/16 23:59 23:59 23:59 23:59 Intake Total 1265 1390 2953 708 Output Total 0 0 Balance 1265 1390 2953 708 Weight 194 lb 8 oz 194 lb 198 lb Last Vital Signs Temp Pulse Resp BP Pulse Ox 98.5 F 99 H 19 102/46 97 11/26/16 06:00 11/26/16 06:00 11/26/16 06:40 11/26/16 06:00 11/25/16 20:57 Active Medications Amino Acids (Prosource No Carb Liquid Pkt) 30 ml PO BID@0800,1730 [facility] Last Admin: 11/25/16 16:39 Dose: 30 ml Bacitracin (Bacitracin -) 1 applic TP DAILY STEVEN Last Admin: 11/25/16 09:33 Dose: 1 applic Clotrimazole (Lotrimin 1% Solution -) 1 applic TP BID STEVEN Last Admin: 11/25/16 21:41 Dose: 1 applic Collagenase (Santyl -) 1 applic TP DAILY STEVEN Last Admin: 11/25/16 09:34 Dose: 1 applic Epoetin Rigoberto (Epogen -) 6,000 units IVPUSH ONCE ONE Stop: 11/25/16 16:02 Fluconazole (Diflucan 40mg/Ml Suspension -) 200 mg PEG DAILY [facility] Last Admin: 11/25/16 11:11 Dose: 200 mg Hydrocortisone Sodium Succinate (Solu-Cortef -) 50 mg IVPB Q6H-IV STEVEN Last Admin: 11/26/16 02:38 Dose: 50 mg Dopamine HCl/Dextrose (Dopamine 400 Mg/D5w -) 250 mls @ 16.542 mls/hr IVPB TITR STEVEN; 5 MCG/KG/MIN PRN Reason: Protocol Last Admin: 11/26/16 03:00 Dose: 33.084 mls/hr Piperacillin Sod/Tazobactam Sod (Zosyn 2.25gm Ivpb (Pre-Docked)) 50 mls @ 100 mls/hr IVPB Q8H-IV STEVEN PRN Reason: Protocol Last Admin: 11/26/16 02:39 Dose: 100 mls/hr Ertapenem 1 gm/ Sodium (Chloride) 50 mls @ 100 mls/hr IVPB DAILY [facility] PRN Reason: Protocol Last Admin: 11/25/16 09:51 Dose: 100 mls/hr Insulin Aspart (Novolog Vial Sliding Scale -) 1 vial SQ Q6HPO STEVEN PRN Reason: Protocol Last Admin: 11/26/16 05:58 Dose: 2 units Ketoconazole (Nizoral 2% Cream -) 1 applic TP DAILY [facility] Last Admin: 11/25/16 09:34 Dose: 1 applic Morphine Sulfate (Morphine Injection -) 1 mg IVPUSH Q4H PRN PRN Reason: PAIN Pantoprazole Sodium (Protonix Packets For Oral Suspension -) 40 mg NGT DAILY [facility] Last Admin: 11/25/16 09:52 Dose: 40 mg Potassium Chloride (Kcl Oral Solution -) 20 meq PO DAILY [facility] Last Admin: 11/25/16 09:51 Dose: 20 meq Potassium Phos/Sodium Phos (Phos-Nak Packet -) 1 packet PO BID [facility] Last Admin: 11/25/16 21:35 Dose: 1 packet Gen: vented, poorly responsive Heart: RRR Lung: scattered rhonchi Abd: soft, edematous Ext: + edema, multiple ulcers Laboratory Results - last 24 hr 11/25/16 11/25/16 11/25/16 12:41 15:30 15:30 WBC 2.1 L D RBC 3.08 L Hgb 9.4 L D Hct 29.6 L D MCV 96.1 H MCHC 31.8 L RDW 22.7 H Plt Count 46 L D MPV 11.4 H Sodium 140 Potassium 3.5 Chloride 103 Carbon Dioxide 23 Anion Gap 14 BUN 56 H Creatinine 1.8 H POC Glucometer [phone] Random Glucose 146 H Calcium 7.1 L Phosphorus 3.6 D Magnesium 1.7 L Albumin 1.8 L 11/25/16 11/25/16 11/26/16 15:39 23:46 05:49 WBC RBC Hgb Hct MCV MCHC RDW Plt Count MPV Sodium Potassium Chloride Carbon Dioxide Anion Gap BUN Creatinine POC Glucometer [phone] Random Glucose Calcium Phosphorus Magnesium Albumin ASSESSMENT AND PLAN: Sacral Decubitus Ulcer Infection Gram Positive Bacteremia Septic Shock ESRD on HD Chronic Respiratory Failure Chronic Hypotension h/o CVA Anoxic Encephalopathy Anemia Thrombocytopenia - taper off pressors - tolerate MAP >50 - continue antibiotics per ID - wound care - stress dose steroids - midodrine - HD per renal - poor prognosis for any meaningful recovery, approaching medical futility, recommend palliative care - DVT/GI prophylaxis Dr Gallagher CCTime 35"
[2016-11-26] MEDS ORDERED: MAGNESIUM SULF 50% (8.12 MEQ/2 ML-1 GM VIAL) IVPB ONE (10:15)
--- NOTE | 2016-11-26 10:18 | PN ---
Progress Note, Physician History of Present Illness: Pt remains on pressor Dopamine but just decreased to 6 mcg/kg/min He is on the ventilator and is poorly responsive Last dialyzed on 11/23 - Current Medication List Current Medications: Active Medications Amino Acids (Prosource No Carb Liquid Pkt) 30 ml PO BID@0800,1730 [facility] Last Admin: 11/25/16 16:39 Dose: 30 ml Bacitracin (Bacitracin -) 1 applic TP DAILY [facility]EVEN Last Admin: 11/25/16 09:33 Dose: 1 applic Clotrimazole (Lotrimin 1% Solution -) 1 applic TP BID [facility]EVEN Last Admin: 11/25/16 21:41 Dose: 1 applic Collagenase (Santyl -) 1 applic TP DAILY [facility] Last Admin: 11/25/16 09:34 Dose: 1 applic Epoetin Rigoberto (Epogen -) 6,000 units IVPUSH ONCE ONE Stop: 11/25/16 16:02 Fluconazole (Diflucan 40mg/Ml Suspension -) 200 mg PEG DAILY [facility] Last Admin: 11/25/16 11:11 Dose: 200 mg Hydrocortisone Sodium Succinate (Solu-Cortef -) 50 mg IVPB Q6H-IV [facility] Last Admin: 11/26/16 02:38 Dose: 50 mg Dopamine HCl/Dextrose (Dopamine 400 Mg/D5w -) 250 mls @ 16.542 mls/hr IVPB TITR STEVEN; 5 MCG/KG/MIN PRN Reason: Protocol Last Admin: 11/26/16 03:00 Dose: 33.084 mls/hr Piperacillin Sod/Tazobactam Sod (Zosyn 2.25gm Ivpb (Pre-Docked)) 50 mls @ 100 mls/hr IVPB Q8H-IV STEVEN PRN Reason: Protocol Last Admin: 11/26/16 02:39 Dose: 100 mls/hr Ertapenem 1 gm/ Sodium (Chloride) 50 mls @ 100 mls/hr IVPB DAILY [facility]EVEN PRN Reason: Protocol Last Admin: 11/25/16 09:51 Dose: 100 mls/hr Insulin Aspart (Novolog Vial Sliding Scale -) 1 vial SQ Q6HPO [facility]EVEN PRN Reason: Protocol Last Admin: 11/26/16 05:58 Dose: 2 units Ketoconazole (Nizoral 2% Cream -) 1 applic TP DAILY [facility] Last Admin: 11/25/16 09:34 Dose: 1 applic Magnesium Sulfate (Magnesium Sulfate) 1 gm IVPB ONCE ONE Stop: 11/26/16 10:16 Morphine Sulfate (Morphine Injection -) 1 mg IVPUSH Q4H PRN PRN Reason: PAIN Pantoprazole Sodium (Protonix Packets For Oral Suspension -) 40 mg NGT DAILY [facility] Last Admin: 11/25/16 09:52 Dose: 40 mg Potassium Chloride (Kcl Oral Solution -) 20 meq PO DAILY [facility] Last Admin: 11/25/16 09:51 Dose: 20 meq Potassium Phos/Sodium Phos (Phos-Nak Packet -) 1 packet PO BID [facility] Last Admin: 11/25/16 21:35 Dose: 1 packet - Objective Vital Signs: Vital Signs Temperature 98.5 F 11/26/16 06:00 Pulse Rate 99 H 11/26/16 06:00 Respiratory Rate 20 11/26/16 09:10 Blood Pressure 102/46 11/26/16 06:00 O2 Sat by Pulse Oximetry (%) 97 11/25/16 20:57 Constitutional: Yes: No Distress Cardiovascular: Yes: S1, S2 Respiratory: Yes: Other (Equal air entry bilaterally) Gastrointestinal: Yes: Soft, Distention, Tenderness, Rebound Edema: Yes Labs: CBC, BMP 11/25/16 15:30 11/25/16 15:30 INR, PTT INR 1.68 (0.82-1.09) H 11/24/16 08:10 Fibrinogen 220.0 mg/dL (238-498) L 11/24/16 08:10 - ....Imaging Chest X-ray: Report Reviewed (Effusions , Cardiomegaly, atelectasis) Assessment/Plan Impression 1. ESRD 2. hypotension 3. chronic respiratory failure 4. sepsis 5. Anemia 6. GI bleed 7. CVA 8. DM 9. Hypothyroidism 10. Pancytopenia Plan HD today as tolerated Albumin prn to maintain BP during HD Epogen post HD Labs Pre HD since not drawn this am Taper off pressor as tolerated after HD Prognosis poor Discussed with CCM and HD team Dr Hylton
[2016-11-26] MEDS ORDERED: PT OWN MED DRAWER 7, Y5N ONE ×2 (10:22→10:23)
[2016-11-26] MEDS: BACITRACIN 30 GM TUBE TOPICAL OINTMENT TP SCH (10:26)
[2016-11-26] MEDS: POTASSIUM CHLORIDE 40 MEQ/30 ML UNIT DOSE CUP PO SCH (10:28)
[2016-11-26] MEDS: PANTOPRAZOLE SOD 40 MG SUSPENSION PACKET NGT SCH (10:29)
[2016-11-26] MEDS: KETOCONAZOLE 2% CREAM - 60GM TUBE TP SCH (10:33)
[2016-11-26] MEDS: CLOTRIMAZOLE 1%TOPICAL SOLUTION 30 ML BOTTLE TP SCH ×2 (10:34→21:28)
[2016-11-26] MEDS: FLUCONAZOLE 40 MG/ML SUSPENSION 35 ML BOTTLE PEG SCH (10:52)
[2016-11-26] MEDS: ERTAPENEM SODIUM 1 GM in SODIUM CHLORIDE 50 ML IVPB SCH (10:52)
[2016-11-26] MEDS ORDERED: ALBUMIN HUMAN 25% 12.5 GM/50 ML VIAL IVPB SCH (11:00)
[2016-11-26] MEDS: ALBUMIN HUMAN 25% 12.5 GM/50 ML VIAL IVPB SCH ×4 (11:00→12:45)
[2016-11-26] MEDS ORDERED: EPOETIN ALFA 3,000 UNIT/1 ML ML IVPUSH ONE (11:00)
[2016-11-26 11:18] LABS: BASOPHIL 0.2 % (0-2.0); MCH 30.7 pg (25.7-33.7); MCHC 33.1 g/dl (32.0-35.9); MEAN CELL VOLUME 92.7 fl (80-96); MEAN PLT VOLUME 9.8 fl (7.5-11.1); NEUTROPHILS 95.5 % (42.8-82.8); PLATELET COUNT 39 K/MM3 (134-434); RDW 22.6 % (11.9-15.9); WHITE BLOOD COUNT 6.5 K/mm3 (4.0-10.0)
--- NOTE | 2016-11-26 11:38 | PN ---
Progress Note (short form) - Note Progress Note: Patient remains in ICu on IV pressor Dopamine Vital Signs Temperature 98.0 F 11/26/16 10:45 Pulse Rate 85 11/26/16 11:20 Respiratory Rate 20 11/26/16 11:25 Blood Pressure 116/76 11/26/16 11:20 O2 Sat by Pulse Oximetry (%) 100 11/26/16 08:00 GENERAL: unresponsive, opens eyes. HEAD: Normal with no signs of trauma. EYES: sclera anicteric, conjunctiva clear. ENT: moist mucous membranes. NECK: supple. LUNGS: diffuse ronchi, trach, vent. HEART: Regular rate and rhythm, S1, S2 positive ABDOMEN: Soft, mildly distended, positive BS, positive for Peg EXTREMITIES: 1+ pulses, warm, 3+ edema. b/l pressure ulcers on heels with black echar. Sacrum: unstageable pressure ulcer with yellow echar. NEUROLOGICAL: symmetrical face PSYCH: unable to assess SKIN: Warm, dry, tinea corporis diffusely on abdomen, chest CBCD WBC 6.5 K/mm3 (4.0-10.0) D 11/26/16 10:45 RBC 2.76 M/mm3 (4.00-5.60) L 11/26/16 10:45 Hgb 8.5 GM/dL (11.7-16.9) L 11/26/16 10:45 Hct 25.6 % (35.4-49) L 11/26/16 10:45 MCV 92.7 fl (80-96) 11/26/16 10:45 MCHC 33.1 g/dl (32.0-35.9) 11/26/16 10:45 RDW 22.6 % (11.9-15.9) H 11/26/16 10:45 Plt Count 39 K/MM3 (134-434) L 11/26/16 10:45 MPV 9.8 fl (7.5-11.1) D 11/26/16 10:45 CMP Sodium 140 mmol/L (136-145) 11/25/16 15:30 Potassium 3.5 mmol/L (3.5-5.1) 11/25/16 15:30 Chloride 103 mmol/L (98-107) 11/25/16 15:30 Carbon Dioxide 23 mmol/L (21-32) 11/25/16 15:30 Anion Gap 14 (8-16) 11/25/16 15:30 BUN 56 mg/dL (7-18) H 11/25/16 15:30 Creatinine 1.8 mg/dL (0.7-1.3) H 11/25/16 15:30 Creat Clearance w eGFR 27.71 (>60) 11/18/16 09:45 Random Glucose 146 mg/dL (74-106) H 11/25/16 15:30 Calcium 7.1 mg/dL (8.5-10.1) L 11/25/16 15:30 Total Bilirubin 0.8 mg/dL (0.2-1.0) 11/18/16 09:45 AST 20 U/L (15-37) 11/18/16 09:45 ALT 19 U/L (12-78) 11/18/16 09:45 Alkaline Phosphatase 268 U/L (45-117) H D 11/18/16 09:45 Total Protein 4.7 g/dl (6.4-8.2) L 11/18/16 09:45 Albumin 1.8 g/dl (3.4-5.0) L 11/25/16 15:30 CARDIAC ENZYMES Creatine Kinase 28 IU/L (39-308) L 11/12/16 01:41 Troponin I 0.08 ng/ml (0.00-0.05) H D 11/12/16 08:10 Current Medications Generic Name Dose Route Start Last Admin Trade Name Freq PRN Reason Stop Dose Admin Albumin Human 12.5 gm 11/26/16 10:30 Albumin Human 25% IVPB 11/26/16 12:01 Q30M STEVEN Amino Acids 30 ml 11/25/16 08:00 11/26/16 09:00 Prosource No Carb Liquid Pkt PO 30 ml BID@0800,1730 STEVEN Administration Bacitracin 1 applic 11/25/16 10:00 11/26/16 10:26 Bacitracin - TP 1 applic DAILY STEVEN Administration Clotrimazole 1 applic 11/25/16 10:00 11/26/16 10:34 Lotrimin 1% Solution - TP 1 applic BID STEVEN Administration Collagenase 1 applic 11/25/16 10:00 11/25/16 09:34 Santyl - TP 1 applic DAILY STEVEN Administration Fluconazole 200 mg 11/25/16 10:00 11/26/16 10:52 Diflucan 40mg/Ml Suspension - PEG 200 mg DAILY STEVEN Administration Hydrocortisone Sodium Succinate 50 mg 11/25/16 05:30 11/26/16 10:32 Solu-Cortef - IVPB 50 mg Q6H-IV STEVEN Administration Dopamine HCl/Dextrose 250 mls @ 16.542 mls/hr 11/25/16 03:35 11/26/16 10:00 Dopamine 400 Mg/D5w - IVPB 6 mcg/kg/min TITR STEVEN Titration Protocol 5 MCG/KG/MIN Piperacillin Sod/Tazobactam Sod 50 mls @ 100 mls/hr 11/25/16 10:00 11/26/16 10: 29 Zosyn 2.25gm Ivpb (Pre-Docked) IVPB 100 mls/hr Q8H-IV STEVEN Administration Protocol Ertapenem 1 gm/ Sodium 50 mls @ 100 mls/hr 11/25/16 10:00 11/26/16 10:52 Chloride IVPB 100 mls/hr DAILY STEVEN Administration Protocol Insulin Aspart 1 vial 11/25/16 06:00 11/26/16 05:58 Novolog Vial Sliding Scale - SQ 2 units Q6HPO STEVEN Administration Protocol Ketoconazole 1 applic 11/25/16 10:00 11/26/16 10:33 Nizoral 2% Cream - TP 1 applic DAILY STEVEN Administration Morphine Sulfate 1 mg 11/25/16 09:23 Morphine Injection - IVPUSH Q4H PRN PAIN Pantoprazole Sodium 40 mg 11/25/16 10:00 11/26/16 10:29 Protonix Packets For Oral Suspension - NGT 40 mg DAILY STEVEN Administration Potassium Chloride 20 meq 11/25/16 10:00 11/26/16 10:28 Kcl Oral Solution - PO 20 meq DAILY STEVEN Administration Potassium Phos/Sodium Phos 1 packet 11/25/16 10:00 11/25/16 21:35 Phos-Nak Packet - PO 1 packet BID STEVEN Administration Home Medications Medication Instructions Recorded Atorvastatin Ca [Lipitor] 80 mg PO HS 11/12/16 Esomeprazole Magnesium 40 mg PO DAILY 11/12/16 Ferrous Sulfate 325 mg PO DAILY 11/12/16 Hydrocortisone 20 mg PO DAILY 11/12/16 Levothyroxine [Synthroid -] 50 mcg PO DAILY 11/12/16 Magnesium Hydroxide [Milk of 400 mg PO DAILY 11/12/16 Magnesia] Midodrine HCl 5 mg PO DAILY 11/12/16 Sevelamer Carbonate [Renvela] 800 mg PO DAILY 11/12/16 Vitamin B Comp W-C [Nephro-Daily -] 1 tablet PO DAILY 11/12/16 This is a 76 yo M with PMH of hypotension, HLD, hypothyroidism, DM, COPD, ESRD, GERD, s/p tracheostomy, s/p gastrostomy presented to ER from [facility] for coffee ground emesis. # Septic shock On Dopamine continues,titrate when stable ,likely source sacral decubitus ulcer with unstageable ulcer, wound culture positive for pseudomonas , ESBL , wound is not healing ,Gram Positive Bacteremia. Repeat culture negative , Lactic Acidosis , ID on the case , on IV ertapenem day 9 and zosyn d 11, consulted to see the patient. #DIC, due to sepsis, fibrinogen trending up ,trend coags. Heme consult appreciated, no active bleed, Platelets 30's #Anoxic Encephalopathy ;unresponsive # PEG leaking air, tube feed contents :GI is on the case. # Acute Diarrhea, stool for cdiff, and stool culture likely due to abx treatment ;rectal tube; C diff toxin negative x 2 # Acute on chronic Anemia s/p by GIB, coffee ground emesis resolved, s/p 3u pRBC this admission , hemoglobin is 8.1 today. monitor h/h, epogen ,IV PPI BID #ESRD on HD, hold HD while on pressors, nephro consult appreciated # DM SS q6, sliding scale Poor prognosis; palliative care consult spoke with family family wishes full code due to christian reasons Consulted medical ethics Visit type - Emergency Visit Emergency Visit: Yes ED Registration Date: 11/12/16 Care time: The patient presented to the Emergency Department on the above date and was hospitalized for further evaluation of their emergent condition. - New Patient This patient is new to me today: No - Critical Care Critical Care patient: No
[2016-11-26 12:02] LABS: ALBUMIN 1.8 g/dl (3.4-5.0); CALCIUM 7.6 mg/dL (8.5-10.1)
[2016-11-26 12:04] LABS: BILIRUBIN,TOTAL 0.7 mg/dL (0.2-1.0); CREATININE 1.3 mg/dL (0.7-1.3); TOT PROT 4.7 g/dl (6.4-8.2)
[2016-11-26] MEDS: NAPH,MB-DB/K PH,MBDB POWDER PACKET PO SCH ×2 (12:30→21:26)
--- NOTE | 2016-11-26 12:36 | PN ---
Progress Note (short form) - Note Progress Note: Progress Note (short form) Progress Note: Patient seen and examined In ICU Multiple medical issues. Multiple decubiti, / Infected decubit Septic shock Gram Positive bacteremia, Anoxic encephalopathy ESRD/HD Chronic hypotension Anemia Thrombocytopenia/hypofibrinogenemia/coagulopathy-- likely DIC Vital Signs Period Temp Pulse Resp BP Sys/Vang Pulse Ox Last 24 Hr 94.7 F-99 F 55-103 12-25 65-116/38-76 97-100 Ventilator support Decreased breath sounds RSR Abdomen-soft Rectal tube Scrotal Edema Numerous LE decubiti CBC, BMP 11/26/16 10:45 11/26/16 10:45 Impression: Problems as outlined above DIC- likely secondary to sepsis Transfuse if Hb <7-8 or Platelts <15 or if bleeding or procedures.
[2016-11-26] MEDS: COLLAGENASE CLOSTRIDIUM HIST. 30 GRAMS TUBE TP SCH (15:15)
--- NOTE | 2016-11-26 17:22 | PN ---
Progress Note, Physician History of Present Illness: patient status quo now temp on the better side no other events bp better patient started on dop[amine quinn switched off patient was dialysed - Current Medication List Current Medications: Active Medications Amino Acids (Prosource No Carb Liquid Pkt) 30 ml PO BID@0800,1730 [facility] Last Admin: 11/26/16 09:00 Dose: 30 ml Bacitracin (Bacitracin -) 1 applic TP DAILY [facility] Last Admin: 11/26/16 10:26 Dose: 1 applic Clotrimazole (Lotrimin 1% Solution -) 1 applic TP BID [facility] Last Admin: 11/26/16 10:34 Dose: 1 applic Collagenase (Santyl -) 1 applic TP DAILY [facility] Last Admin: 11/26/16 15:15 Dose: 1 applic Fluconazole (Diflucan 40mg/Ml Suspension -) 200 mg PEG DAILY [facility] Last Admin: 11/26/16 10:52 Dose: 200 mg Hydrocortisone Sodium Succinate (Solu-Cortef -) 50 mg IVPB Q6H-IV [facility] Last Admin: 11/26/16 10:32 Dose: 50 mg Dopamine HCl/Dextrose (Dopamine 400 Mg/D5w -) 250 mls @ 16.542 mls/hr IVPB TITR STEVEN; 5 MCG/KG/MIN PRN Reason: Protocol Last Titration: 11/26/16 10:00 Dose: 6 mcg/kg/min Piperacillin Sod/Tazobactam Sod (Zosyn 2.25gm Ivpb (Pre-Docked)) 50 mls @ 100 mls/hr IVPB Q8H-IV STEVEN PRN Reason: Protocol Last Admin: 11/26/16 10:29 Dose: 100 mls/hr Ertapenem 1 gm/ Sodium (Chloride) 50 mls @ 100 mls/hr IVPB DAILY STEVEN PRN Reason: Protocol Last Admin: 11/26/16 10:52 Dose: 100 mls/hr Insulin Aspart (Novolog Vial Sliding Scale -) 1 vial SQ Q6HPO STEVEN PRN Reason: Protocol Last Admin: 11/26/16 12:32 Dose: 2 units Ketoconazole (Nizoral 2% Cream -) 1 applic TP DAILY [facility] Last Admin: 11/26/16 10:33 Dose: 1 applic Morphine Sulfate (Morphine Injection -) 1 mg IVPUSH Q4H PRN PRN Reason: PAIN Pantoprazole Sodium (Protonix Packets For Oral Suspension -) 40 mg NGT DAILY [facility] Last Admin: 11/26/16 10:29 Dose: 40 mg Potassium Chloride (Kcl Oral Solution -) 20 meq PO DAILY [facility] Last Admin: 11/26/16 10:28 Dose: 20 meq Potassium Phos/Sodium Phos (Phos-Nak Packet -) 1 packet PO BID [facility] Last Admin: 11/26/16 12:30 Dose: 1 packet - Objective Vital Signs: Vital Signs Temperature 98.3 F 11/26/16 14:00 Pulse Rate 90 11/26/16 17:00 Respiratory Rate 18 11/26/16 17:00 Blood Pressure 96/68 11/26/16 17:00 O2 Sat by Pulse Oximetry (%) 98 11/26/16 09:00 Constitutional: Yes: Other Neck: Yes: Supple Cardiovascular: Yes: Regular Rate and Rhythm Respiratory: Yes: Regular, Poor Air Entry Gastrointestinal: Yes: Soft, Other (feeding leaking around peg tube) Breast(s): Yes: Other Musculoskeletal: Yes: Other Extremities: Yes: Other (multiple ulcers) Neurological: Yes: Other (opens eyes) Psychiatric: Yes: Other Labs: CBC, BMP 11/26/16 10:45 11/26/16 10:45 INR, PTT INR 1.68 (0.82-1.09) H 11/24/16 08:10 Fibrinogen 220.0 mg/dL (238-498) L 11/24/16 08:10 Assessment/Plan decubitus ulcer multiple pressure ulcer infected peg tube site septic shock lactic acidosis hypotension hypothermia esrd cva gram positive bacteremia rash plan continue current mgmt continue abx patients prognosis is poor continue maintaining body temperature hold tube feeds continue pressors as needed cc 40 min
[2016-11-27] MEDS: INSULIN SLIDING SCALE (NOVOLOG) 1 VIAL SQ SCH ×4 (01:00→18:42)
[2016-11-27] MEDS: PIPERACILLIN/TAZOB 2.25 GM 50 ML IVPB SCH ×3 (01:30→18:42)
[2016-11-27] MEDS: HYDROCORTISONE SOD SUCCINATE 100 MG/2 ML VIAL IVPB SCH ×4 (02:35→21:30)
[2016-11-27] MEDS: DOPAMINE 400 MG/D5W - 250 ML IVPB SCH (02:36)
[2016-11-27] MEDS: BANATROL PLUS POWDER PACKET PEG SCH ×3 (06:37→22:05)
--- NOTE | 2016-11-27 07:56 | PN ---
Teaching Attending Note Name of Resident: Ros Dias ATTENDING PHYSICIAN STATEMENT I saw and evaluated the patient. I reviewed the resident's note and discussed the case with the resident. I agree with the resident's findings and plan as documented. Patient is in ICU continues to be on Pressors. Non-verbal Vital Signs Temperature 96.6 F L 11/27/16 06:00 Pulse Rate 67 11/27/16 06:00 Respiratory Rate 14 11/27/16 07:18 Blood Pressure 99/61 11/27/16 06:00 O2 Sat by Pulse Oximetry (%) 100 11/26/16 23:00 CBCD WBC 6.5 K/mm3 (4.0-10.0) D 11/26/16 10:45 RBC 2.76 M/mm3 (4.00-5.60) L 11/26/16 10:45 Hgb 8.5 GM/dL (11.7-16.9) L 11/26/16 10:45 Hct 25.6 % (35.4-49) L 11/26/16 10:45 MCV 92.7 fl (80-96) 11/26/16 10:45 MCHC 33.1 g/dl (32.0-35.9) 11/26/16 10:45 RDW 22.6 % (11.9-15.9) H 11/26/16 10:45 Plt Count 39 K/MM3 (134-434) L 11/26/16 10:45 MPV 9.8 fl (7.5-11.1) D 11/26/16 10:45 CMP Sodium 144 mmol/L (136-145) 11/26/16 10:45 Potassium 3.6 mmol/L (3.5-5.1) 11/26/16 10:45 Chloride 105 mmol/L (98-107) 11/26/16 10:45 Carbon Dioxide 26 mmol/L (21-32) 11/26/16 10:45 Anion Gap 13 (8-16) 11/26/16 10:45 BUN 38 mg/dL (7-18) H D 11/26/16 10:45 Creatinine 1.3 mg/dL (0.7-1.3) D 11/26/16 10:45 Creat Clearance w eGFR 53.53 (>60) 11/26/16 10:45 Random Glucose 138 mg/dL (74-106) H 11/26/16 10:45 Calcium 7.6 mg/dL (8.5-10.1) L 11/26/16 10:45 Total Bilirubin 0.7 mg/dL (0.2-1.0) 11/26/16 10:45 AST 18 U/L (15-37) 11/26/16 10:45 ALT 15 U/L (12-78) D 11/26/16 10:45 Alkaline Phosphatase 132 U/L (45-117) H D 11/26/16 10:45 Total Protein 4.7 g/dl (6.4-8.2) L 11/26/16 10:45 Albumin 1.8 g/dl (3.4-5.0) L 11/26/16 10:45 CARDIAC ENZYMES Creatine Kinase 28 IU/L (39-308) L 11/12/16 01:41 Troponin I 0.08 ng/ml (0.00-0.05) H D 11/12/16 08:10 Current Medications Generic Name Dose Route Start Last Admin Trade Name Nirajq PRN Reason Stop Dose Admin Amino Acids 30 ml 11/25/16 08:00 11/26/16 17:32 Prosource No Carb Liquid Pkt PO Not Given BID@0800,1730 STEVEN Bacitracin 1 applic 11/25/16 10:00 11/26/16 10:26 Bacitracin - TP 1 applic DAILY STEVEN Administration Clotrimazole 1 applic 11/25/16 10:00 11/26/16 21:28 Lotrimin 1% Solution - TP 1 applic BID STEVEN Administration Collagenase 1 applic 11/25/16 10:00 11/26/16 15:15 Santyl - TP 1 applic DAILY STEVEN Administration Fluconazole 200 mg 11/25/16 10:00 11/26/16 10:52 Diflucan 40mg/Ml Suspension - PEG 200 mg DAILY STEVEN Administration Hydrocortisone Sodium Succinate 50 mg 11/25/16 05:30 11/27/16 02:35 Solu-Cortef - IVPB 50 mg Q6H-IV STEVEN Administration Dopamine HCl/Dextrose 250 mls @ 16.542 mls/hr 11/25/16 03:35 11/27/16 02:36 Dopamine 400 Mg/D5w - IVPB 16.542 mls/hr TITR STEVEN Administration Protocol 5 MCG/KG/MIN Piperacillin Sod/Tazobactam Sod 50 mls @ 100 mls/hr 11/25/16 10:00 11/27/16 01: 30 Zosyn 2.25gm Ivpb (Pre-Docked) IVPB 100 mls/hr Q8H-IV STEVEN Administration Protocol Ertapenem 1 gm/ Sodium 50 mls @ 100 mls/hr 11/25/16 10:00 11/26/16 10:52 Chloride IVPB 100 mls/hr DAILY STEVEN Administration Protocol Insulin Aspart 1 vial 11/25/16 06:00 11/27/16 06:37 Novolog Vial Sliding Scale - SQ Not Given Q6HPO STEVEN Protocol Ketoconazole 1 applic 11/25/16 10:00 11/26/16 10:33 Nizoral 2% Cream - TP 1 applic DAILY STEVEN Administration Morphine Sulfate 1 mg 11/25/16 09:23 Morphine Injection - IVPUSH Q4H PRN PAIN Pantoprazole Sodium 40 mg 11/25/16 10:00 11/26/16 10:29 Protonix Packets For Oral Suspension - NGT 40 mg DAILY STEVEN Administration Potassium Chloride 20 meq 11/25/16 10:00 11/26/16 10:28 Kcl Oral Solution - PO 20 meq DAILY STEVEN Administration Potassium Phos/Sodium Phos 1 packet 11/25/16 10:00 11/26/16 21:26 Phos-Nak Packet - PO 1 packet BID STEVEN Administration Home Medications Medication Instructions Recorded Atorvastatin Ca [Lipitor] 80 mg PO HS 11/12/16 Esomeprazole Magnesium 40 mg PO DAILY 11/12/16 Ferrous Sulfate 325 mg PO DAILY 11/12/16 Hydrocortisone 20 mg PO DAILY 11/12/16 Levothyroxine [Synthroid -] 50 mcg PO DAILY 11/12/16 Magnesium Hydroxide [Milk of 400 mg PO DAILY 11/12/16 Magnesia] Midodrine HCl 5 mg PO DAILY 11/12/16 Sevelamer Carbonate [Renvela] 800 mg PO DAILY 11/12/16 Vitamin B Comp W-C [Nephro-Daily -] 1 tablet PO DAILY 11/12/16 ROS: Nonverbal PE : agree with the resident's evaluation Microbiology 11/26/16 05:30 Sputum - Endotrachea Suction/Ventilator Gram Stain - Final 11/26/16 05:30 Sputum - Endotrachea Suction/Ventilator Sputum Culture - Final Serratia Marcescens Klebsiella Pneumoniae - Esbl Pseudomonas Aeruginosa 11/19/16 18:00 Stool Clostridium difficile Antigen (ELIZABETH) - Final 11/19/16 18:00 Stool Clostridium difficile Toxin Assay - Final 11/15/16 08:35 Blood - Peripheral Venous Blood Culture - Final NO GROWTH AFTER 5 DAYS INCUBATION 11/15/16 08:30 Blood - Peripheral Venous Blood Culture - Final NO GROWTH AFTER 5 DAYS INCUBATION 11/12/16 08:10 Blood - Peripheral Venous Blood Culture - Final NO GROWTH AFTER 5 DAYS INCUBATION 11/12/16 07:00 Back Gram Stain - Final 11/12/16 07:00 Back Wound Culture - Final Acinetobacter Baumannii/Haemol Pseudomonas Aeruginosa Morganella Morganii 11/16/16 12:15 Stool Clostridium difficile Antigen (ELIZABETH) - Final 11/16/16 12:15 Stool Clostridium difficile Toxin Assay - Final 11/12/16 08:10 Blood - Peripheral Venous Blood Culture - Final Staph Capitis Subsp Ureolyticu 11/13/16 00:29 Hip - Left Gram Stain - Final 11/13/16 00:29 Hip - Left Wound Culture - Final Escherichia Coli Esbl Silver [employer]er Blasting Pseudomonas Aeruginosa Morganella Morganii ASSESSMENT AND PLAN: This is a 76 yo M with PMH of hypotension, HLD, hypothyroidism, DM, COPD, ESRD, GERD, s/p tracheostomy, s/p gastrostomy presented to ER from [facility] for coffee ground emesis. # Septic shock continues on Dopamine,titrate to get him off dopamine if possible when stable, likely source sacral decubitus ulcer with unstageable ulcers all around his body , wound culture positive for pseudomonas, ESBL , wound is not healing ,Gram Positive Bacteremia. Repeat culture negative , Lactic Acidosis , ID on the case , on IV ertapenem , zosyn and Diflucan . consulted to see the patient. #Anoxic Encephalopathy ; unresponsive poor prognosis for any meaningful recovery # PEG leaking air, Poor candidate for procedures at this time. per GI ; discussed with the son Matthew the Poor prognosis, and explained the seriousness of the situation # Acute Diarrhea, stool for cdiff, and stool culture likely due to abx treatment ;rectal tube; C diff toxin negative x 2 # Acute on chronic Anemia s/p by GIB, coffee ground emesis resolved, s/p 3u pRBC this admission , hemoglobin is 8.5 today. continue to monitor h/h, epogen ,IV PPI BID #ESRD on HD, as per nephro # DM SS q6, sliding scale Poor prognosis; palliative care consult spoke with family wishes full code due to advent reasons Consulted medical ethics
[2016-11-27 08:36] LABS: MCH 30.8 pg (25.7-33.7); MCHC 33.2 g/dl (32.0-35.9); MEAN CELL VOLUME 92.8 fl (80-96); PLATELET COUNT 40 K/MM3 (134-434); RDW 23.5 % (11.9-15.9); WHITE BLOOD COUNT 5.6 K/mm3 (4.0-10.0)
[2016-11-27 09:11] LABS: ALBUMIN 2.1 g/dl (3.4-5.0); BILIRUBIN,TOTAL 0.9 mg/dL (0.2-1.0); CALCIUM 7.9 mg/dL (8.5-10.1); CREATININE 1.7 mg/dL (0.7-1.3)
--- NOTE | 2016-11-27 09:33 | PN ---
Progress Note (short form) - Note Progress Note: Patient seen and examined in the ICU. Remains on Dopamine for hemodynamic support. AC mode of vent. (?) Feeds around GT Intake & Output 11/24/16 11/25/16 11/26/16 11/27/16 23:59 23:59 23:59 23:59 Intake Total 1390 2953 1303.2 214.1 Output Total 0 0 0 Balance 1390 2953 1303.2 214.1 Weight 194 lb 198 lb 197 lb 3.2 oz Last Vital Signs Temp Pulse Resp BP Pulse Ox 96.6 F L 67 14 99/61 100 11/27/16 06:00 11/27/16 06:00 11/27/16 07:18 11/27/16 06:00 11/26/16 23:00 Active Medications Amino Acids (Prosource No Carb Liquid Pkt) 30 ml PO BID@0800,1730 [facility] Last Admin: 11/26/16 17:32 Dose: Not Given Bacitracin (Bacitracin -) 1 applic TP DAILY [facility] Last Admin: 11/26/16 10:26 Dose: 1 applic Clotrimazole (Lotrimin 1% Solution -) 1 applic TP BID [facility] Last Admin: 11/26/16 21:28 Dose: 1 applic Collagenase (Santyl -) 1 applic TP DAILY [facility] Last Admin: 11/26/16 15:15 Dose: 1 applic Fluconazole (Diflucan 40mg/Ml Suspension -) 200 mg PEG DAILY [facility] Last Admin: 11/26/16 10:52 Dose: 200 mg Hydrocortisone Sodium Succinate (Solu-Cortef -) 50 mg IVPB Q6H-IV [facility] Last Admin: 11/27/16 02:35 Dose: 50 mg Dopamine HCl/Dextrose (Dopamine 400 Mg/D5w -) 250 mls @ 16.542 mls/hr IVPB TITR STEVEN; 5 MCG/KG/MIN PRN Reason: Protocol Last Admin: 11/27/16 02:36 Dose: 16.542 mls/hr Piperacillin Sod/Tazobactam Sod (Zosyn 2.25gm Ivpb (Pre-Docked)) 50 mls @ 100 mls/hr IVPB Q8H-IV STEVEN PRN Reason: Protocol Last Admin: 11/27/16 01:30 Dose: 100 mls/hr Ertapenem 1 gm/ Sodium (Chloride) 50 mls @ 100 mls/hr IVPB DAILY STEVEN PRN Reason: Protocol Last Admin: 11/26/16 10:52 Dose: 100 mls/hr Insulin Aspart (Novolog Vial Sliding Scale -) 1 vial SQ Q6HPO STEVEN PRN Reason: Protocol Last Admin: 11/27/16 06:37 Dose: Not Given Ketoconazole (Nizoral 2% Cream -) 1 applic TP DAILY [facility] Last Admin: 11/26/16 10:33 Dose: 1 applic Morphine Sulfate (Morphine Injection -) 1 mg IVPUSH Q4H PRN PRN Reason: PAIN Pantoprazole Sodium (Protonix Packets For Oral Suspension -) 40 mg NGT DAILY [facility] Last Admin: 11/26/16 10:29 Dose: 40 mg Potassium Chloride (Kcl Oral Solution -) 20 meq PO DAILY [facility] Last Admin: 11/26/16 10:28 Dose: 20 meq Potassium Phos/Sodium Phos (Phos-Nak Packet -) 1 packet PO BID [facility] Last Admin: 11/26/16 21:26 Dose: 1 packet Gen: vented, poorly responsive Heart: RRR Lung: scattered rhonchi Abd: soft, edematous Ext: + edema, multiple ulcers Laboratory Results - last 24 hr 11/26/16 11/26/16 11/26/16 10:45 10:45 12:07 WBC 6.5 D RBC 2.76 L Hgb 8.5 L Hct 25.6 L MCV 92.7 MCHC 33.1 RDW 22.6 H Plt Count 39 L MPV 9.8 D Neutrophils % 95.5 H Lymphocytes % 2.8 L D Monocytes % 1.5 L Eosinophils % 0.0 D Basophils % 0.2 Sodium 144 Potassium 3.6 Chloride 105 Carbon Dioxide 26 Anion Gap 13 BUN 38 H D Creatinine 1.3 D Creat Clearance w eGFR 53.53 POC Glucometer [phone] Random Glucose 138 H Calcium 7.6 L Total Bilirubin 0.7 AST 18 ALT 15 D Alkaline Phosphatase 132 H D Total Protein 4.7 L Albumin 1.8 L 11/27/16 11/27/16 08:25 08:25 WBC 5.6 RBC 2.80 L Hgb 8.6 L Hct 26.0 L MCV 92.8 MCHC 33.2 RDW 23.5 H Plt Count 40 L MPV 10.0 Neutrophils % Lymphocytes % Monocytes % Eosinophils % Basophils % Sodium 141 Potassium 3.6 Chloride 102 Carbon Dioxide 24 Anion Gap 15 BUN 52 H D Creatinine 1.7 H D Creat Clearance w eGFR 39.28 POC Glucometer Random Glucose 74 D Calcium 7.9 L Total Bilirubin 0.9 D AST 17 ALT 13 Alkaline Phosphatase 130 H Total Protein 5.0 L Albumin 2.1 L ASSESSMENT AND PLAN: Sacral Decubitus Ulcer Infection Gram Positive Bacteremia Septic Shock ESRD on HD Chronic Respiratory Failure Chronic Hypotension h/o CVA Anoxic Encephalopathy Anemia Thrombocytopenia - taper off pressors - tolerate MAP >50 - continue antibiotics per ID - wound care - stress dose steroids - midodrine - HD per renal - poor prognosis for any meaningful recovery, approaching medical futility, recommend palliative care - DVT/GI prophylaxis - Hold feeds Dr Gallagher CCTime 35"
--- NOTE | 2016-11-27 11:22 | PN ---
Progress Note, Physician History of Present Illness: Renal f/u Pt had HD with use of IV albumin to support his BP He remains on Dopamine and ventilator - Current Medication List Current Medications: Active Medications Amino Acids (Prosource No Carb Liquid Pkt) 30 ml PO BID@0800,1730 [facility] Last Admin: 11/26/16 17:32 Dose: Not Given Bacitracin (Bacitracin -) 1 applic TP DAILY [facility] Last Admin: 11/26/16 10:26 Dose: 1 applic Clotrimazole (Lotrimin 1% Solution -) 1 applic TP BID [facility] Last Admin: 11/26/16 21:28 Dose: 1 applic Collagenase (Santyl -) 1 applic TP DAILY [facility] Last Admin: 11/26/16 15:15 Dose: 1 applic Fluconazole (Diflucan 40mg/Ml Suspension -) 200 mg PEG DAILY [facility] Last Admin: 11/26/16 10:52 Dose: 200 mg Hydrocortisone Sodium Succinate (Solu-Cortef -) 50 mg IVPB Q6H-IV [facility] Last Admin: 11/27/16 02:35 Dose: 50 mg Dopamine HCl/Dextrose (Dopamine 400 Mg/D5w -) 250 mls @ 16.542 mls/hr IVPB TITR STEVEN; 5 MCG/KG/MIN PRN Reason: Protocol Last Admin: 11/27/16 02:36 Dose: 16.542 mls/hr Piperacillin Sod/Tazobactam Sod (Zosyn 2.25gm Ivpb (Pre-Docked)) 50 mls @ 100 mls/hr IVPB Q8H-IV STEVEN PRN Reason: Protocol Last Admin: 11/27/16 01:30 Dose: 100 mls/hr Ertapenem 1 gm/ Sodium (Chloride) 50 mls @ 100 mls/hr IVPB DAILY STEVEN PRN Reason: Protocol Last Admin: 11/26/16 10:52 Dose: 100 mls/hr Insulin Aspart (Novolog Vial Sliding Scale -) 1 vial SQ Q6HPO STEVEN PRN Reason: Protocol Last Admin: 11/27/16 06:37 Dose: Not Given Ketoconazole (Nizoral 2% Cream -) 1 applic TP DAILY [facility] Last Admin: 11/26/16 10:33 Dose: 1 applic Morphine Sulfate (Morphine Injection -) 1 mg IVPUSH Q4H PRN PRN Reason: PAIN Pantoprazole Sodium (Protonix Packets For Oral Suspension -) 40 mg NGT DAILY [facility] Last Admin: 11/26/16 10:29 Dose: 40 mg Potassium Chloride (Kcl Oral Solution -) 20 meq PO DAILY [facility] Last Admin: 11/26/16 10:28 Dose: 20 meq Potassium Phos/Sodium Phos (Phos-Nak Packet -) 1 packet PO BID [facility] Last Admin: 11/26/16 21:26 Dose: 1 packet - Objective Vital Signs: Vital Signs Temperature 96.6 F L 11/27/16 06:00 Pulse Rate 72 11/27/16 08:00 Respiratory Rate 15 11/27/16 09:20 Blood Pressure 111/63 11/27/16 08:00 O2 Sat by Pulse Oximetry (%) 100 11/27/16 08:00 Constitutional: Yes: No Distress Cardiovascular: Yes: S1, S2 Respiratory: Yes: Rhonchi Gastrointestinal: Yes: Distention Edema: Yes Labs: CBC, BMP 11/27/16 08:25 11/27/16 08:25 INR, PTT INR 1.68 (0.82-1.09) H 11/24/16 08:10 Fibrinogen 220.0 mg/dL (238-498) L 11/24/16 08:10 Laboratory Tests 11/27/16 08:25 Calcium 7.9 L Albumin 2.1 L Assessment/Plan Impression 1. ESRD 2. Hypotension 3. cChronic respiratory failure 4. sSepsis 5. Anemia 6. GI bleed 7. CVA 8. DM 9. Hypothyroidism 10. Pancytopenia with increased WBC Plan D/C the dailt KCL Taper off pressor as tolerated Prognosis poor Discussed with CCM and HD team Dr Hylton
--- NOTE | 2016-11-27 11:33 | PN ---
Physical Exam: SUBJECTIVE: Patient seen and examined Patient resting in bed, opening eyes spontaneously. 96.6 F off john hugger. BP 99/61 on Dopamine @5. Very edematous. Loose light brown diarrhea in rectal tube. No bleeding. No hematemesis. Anuric. PEG still leaking. Feeds stopped. OBJECTIVE: Vital Signs Period Temp Pulse Resp BP Sys/Vang Pulse Ox Last 24 Hr 96.2 F-98.3 F 67-102 12-22 87-111/54-72 100-100 GENERAL: unresponsive, opens eyes. 3+ anasarca HEAD: Normal with no signs of trauma. EYES: sclera anicteric, conjunctiva clear. ENT: moist mucous membranes. NECK: supple. LUNGS: diffuse ronchi, trach, vent. HEART: Regular rate and rhythm, S1, S2 ABDOMEN: Soft, very edematous and because of it hard, globally reduced bowel sounds, feels hard because of edema (increased) Peg in place leaking, dermatitis around peg EXTREMITIES: 1+ pulses, warm, 3+ edema. b/l pressure ulcers on heels with black echar. clean dressing in place Sacrum: unstageable pressure ulcer with yellow echar, malodorous. NEUROLOGICAL: symmetrical face PSYCH: unable to assess SKIN: Warm, dry, tinea corporis diffusely on abdomen, chest Laboratory Results - last 24 hr 11/26/16 11/26/16 11/27/16 10:45 12:07 08:25 WBC 5.6 RBC 2.80 L Hgb 8.6 L Hct 26.0 L MCV 92.8 MCHC 33.2 RDW 23.5 H Plt Count 40 L MPV 10.0 Sodium 144 Potassium 3.6 Chloride 105 Carbon Dioxide 26 Anion Gap 13 BUN 38 H D Creatinine 1.3 D Creat Clearance w eGFR 53.53 POC Glucometer 167.21012 Random Glucose 138 H Calcium 7.6 L Total Bilirubin 0.7 AST 18 ALT 15 D Alkaline Phosphatase 132 H D Total Protein 4.7 L Albumin 1.8 L 11/27/16 08:25 WBC RBC Hgb Hct MCV MCHC RDW Plt Count MPV Sodium 141 Potassium 3.6 Chloride 102 Carbon Dioxide 24 Anion Gap 15 BUN 52 H D Creatinine 1.7 H D Creat Clearance w eGFR 39.28 POC Glucometer Random Glucose 74 D Calcium 7.9 L Total Bilirubin 0.9 D AST 17 ALT 13 Alkaline Phosphatase 130 H Total Protein 5.0 L Albumin 2.1 L Active Medications Generic Name Dose Route Start Last Admin Trade Name Freq PRN Reason Stop Dose Admin Amino Acids 30 ml 11/25/16 08:00 11/26/16 17:32 Prosource No Carb Liquid Pkt PO Not Given BID@0800,1730 STEVEN Bacitracin 1 applic 11/25/16 10:00 11/26/16 10:26 Bacitracin - TP 1 applic DAILY STEVEN Administration Clotrimazole 1 applic 11/25/16 10:00 11/26/16 21:28 Lotrimin 1% Solution - TP 1 applic BID STEVEN Administration Collagenase 1 applic 11/25/16 10:00 11/26/16 15:15 Santyl - TP 1 applic DAILY STEVEN Administration Fluconazole 200 mg 11/25/16 10:00 11/26/16 10:52 Diflucan 40mg/Ml Suspension - PEG 200 mg DAILY STEVEN Administration Hydrocortisone Sodium Succinate 50 mg 11/25/16 05:30 11/27/16 02:35 Solu-Cortef - IVPB 50 mg Q6H-IV STEVEN Administration Dopamine HCl/Dextrose 250 mls @ 16.542 mls/hr 11/25/16 03:35 11/27/16 02:36 Dopamine 400 Mg/D5w - IVPB 16.542 mls/hr TITR STEVEN Administration Protocol 5 MCG/KG/MIN Piperacillin Sod/Tazobactam Sod 50 mls @ 100 mls/hr 11/25/16 10:00 11/27/16 01: 30 Zosyn 2.25gm Ivpb (Pre-Docked) IVPB 100 mls/hr Q8H-IV STEVEN Administration Protocol Ertapenem 1 gm/ Sodium 50 mls @ 100 mls/hr 11/25/16 10:00 11/26/16 10:52 Chloride IVPB 100 mls/hr DAILY STEVEN Administration Protocol Insulin Aspart 1 vial 11/25/16 06:00 11/27/16 06:37 Novolog Vial Sliding Scale - SQ Not Given Q6HPO STEVEN Protocol Ketoconazole 1 applic 11/25/16 10:00 11/26/16 10:33 Nizoral 2% Cream - TP 1 applic DAILY STEVEN Administration Morphine Sulfate 1 mg 11/25/16 09:23 Morphine Injection - IVPUSH Q4H PRN PAIN Pantoprazole Sodium 40 mg 11/25/16 10:00 11/26/16 10:29 Protonix Packets For Oral Suspension - NGT 40 mg DAILY STEVEN Administration Potassium Phos/Sodium Phos 1 packet 11/25/16 10:00 11/26/16 21:26 Phos-Nak Packet - PO 1 packet BID STEVEN Administration ASSESSMENT/PLAN: This is a 76 yo M with PMH of hypotension, HLD, hypothyroidism, DM, COPD, ESRD, GERD, s/p tracheostomy, s/p gastrostomy presented to ER from [facility] for coffee ground emesis. Septic shock -likley source sacral decubitus ulcer -unstageable ulcer -evaluated by wound care. -no need for debridement at this time, dressing changes. Not healing -Gram Positive Bacteremia. Repeat culture negative -Lactic Acidosis -ID consult appreciated -wound culture: pseudomonas, ESBL -ertapenem day 10 and zosyn d 12 -strict I and O (anuric) -DIC still present -wean dopamine PEG leaking air, tube feed contents -GI consult to adjust contacted -hold feeds, peg medicine Tinea Corporis -lotrimin TP Dermatitis -on penis, around peg -bacitracin ointment Diarrhea -likely due to abx treatment -rectal tube -C diff toxin negative x 2 Hypothermia -john hugger PRN ESRD on HD -hold HD while on pressors -nephro consult appreciated Chronic Hypotension -wean off dopamine -Map>65 -hydrocortisone 50 q6 Acute on chronic Anemia -aggravated by GIB -coffee ground emesis resolved -total 3u pRBC this admission -hgb stable -monitor h/h -epogen -IV PPI BID DIC -due to sepsis -fibrinogen trending up -trend coags -Heme consult apprecited -no active bleed -Platelets 40 DM -BGM q6 -sliding scale Anoxic Encephalopathy -unresponsive -unlikely to have meaningful recovery -grave prognosis -palliative care consult spoke with family -Family wishes full code due to buddhist reasons FEN no IVF replete lytes prn tube feeds adjusted per raisin washer recommendation Consulted medical ethics Dispo: ICU Problem List - Problems (1) GORDON (acute kidney injury) Code(s): N17.9 - ACUTE KIDNEY FAILURE, UNSPECIFIED (2) Anasarca Code(s): R60.1 - GENERALIZED EDEMA (3) Anemia Code(s): D64.9 - ANEMIA, UNSPECIFIED (4) CHF (congestive heart failure) Code(s): I50.9 - HEART FAILURE, UNSPECIFIED (5) CKD (chronic kidney disease) Code(s): N18.9 - CHRONIC KIDNEY DISEASE, UNSPECIFIED (6) Elevated INR Code(s): R79.1 - ABNORMAL COAGULATION PROFILE (7) Elevated brain natriuretic peptide (BNP) level Code(s): R79.89 - OTHER SPECIFIED ABNORMAL FINDINGS OF BLOOD CHEMISTRY (8) Fluid overload Code(s): E87.70 - FLUID OVERLOAD, UNSPECIFIED (9) History of CVA (cerebrovascular accident) Code(s): Z86.73 - PRSNL HX OF TIA (TIA), AND CEREB INFRC W/O RESID DEFICITS (10) Hypoalbuminemia Code(s): E88.09 - OTH DISORDERS OF PLASMA-PROTEIN METABOLISM, NEC (11) Hypotension Code(s): I95.9 - HYPOTENSION, UNSPECIFIED Qualifiers: Hypotension type: unspecified hypotension type Qualified Code(s): I95.9 - Hypotension, unspecified (12) Passes no urine Code(s): R34 - ANURIA AND OLIGURIA (13) Pressure ulcer Code(s): L89.90 - PRESSURE ULCER OF UNSPECIFIED SITE, UNSPECIFIED STAGE (14) Pressure ulcer of ankle Code(s): L89.509 - PRESSURE ULCER OF UNSPECIFIED ANKLE, UNSPECIFIED STAGE (15) Pressure ulcer of back Code(s): L89.109 - PRESSURE ULCER OF UNSP PART OF BACK, UNSPECIFIED STAGE (16) Sacral decubitus ulcer, stage IV Code(s): L89.154 - PRESSURE ULCER OF SACRAL REGION, STAGE 4 (17) Sepsis Code(s): A41.9 - SEPSIS, UNSPECIFIED ORGANISM Qualifiers: Sepsis type: sepsis due to unspecified organism Qualified Code(s): A41.9 - Sepsis, unspecified organism (18) Septic shock Code(s): A41.9 - SEPSIS, UNSPECIFIED ORGANISM R65.21 - SEVERE SEPSIS WITH SEPTIC SHOCK (19) Thrombocytopenia Code(s): D69.6 - THROMBOCYTOPENIA, UNSPECIFIED (20) Transaminitis Code(s): R74.0 - NONSPEC ELEV OF LEVELS OF TRANSAMNS & LACTIC ACID DEHYDRGNSE (21) Upper GI bleed Code(s): K92.2 - GASTROINTESTINAL HEMORRHAGE, UNSPECIFIED Visit type - Emergency Visit Emergency Visit: Yes ED Registration Date: 11/12/16 Care time: The patient presented to the Emergency Department on the above date and was hospitalized for further evaluation of their emergent condition. - New Patient This patient is new to me today: No - Critical Care Critical Care patient: Yes Total Critical Care Time (in minutes): 46 Critical Care Statement: The care of this patient involved high complexity decision making to prevent further life threatening deterioration of the patient 's condition and/or to evalute & treat vital organ system(s) failure or risk of failure. - Discharge Referral Referred to [facility] No
[2016-11-27] MEDS ORDERED: HEMOQUE TEST 1 EACH EACH ONE (12:01)
[2016-11-27] MEDS: AMINO ACIDS/PROTEIN HYDROLYS 30 ML LIQUID.PKT PO SCH ×2 (12:06→18:42)
[2016-11-27] MEDS: PANTOPRAZOLE SOD 40 MG SUSPENSION PACKET NGT SCH (12:07)
[2016-11-27] MEDS: NAPH,MB-DB/K PH,MBDB POWDER PACKET PO SCH ×2 (12:07→22:05)
[2016-11-27] MEDS: FLUCONAZOLE 40 MG/ML SUSPENSION 35 ML BOTTLE PEG SCH (12:07)
[2016-11-27] MEDS: ERTAPENEM SODIUM 1 GM in SODIUM CHLORIDE 50 ML IVPB SCH (12:07)
[2016-11-27] MEDS: POTASSIUM CHLORIDE 40 MEQ/30 ML UNIT DOSE CUP PO SCH (12:09)
--- NOTE | 2016-11-27 12:52 | PN ---
Progress Note (short form) - Note Progress Note: Progress Note (short form) Progress Note: Patient seen and examined In ICU Multiple medical issues. Multiple decubiti, / Infected decubit Septic shock Gram Positive bacteremia, Anoxic encephalopathy ESRD/HD Chronic hypotension Anemia Thrombocytopenia/hypofibrinogenemia/coagulopathy-- likely DIC Vital Signs Period Temp Pulse Resp BP Sys/Vang Pulse Ox Last 24 Hr 96.2 F-98.3 F 67-102 12-22 92-111/54-72 100-100 Ventilator support, tracheostomy tube present Decreased breath sounds RSR Abdomen-soft Rectal tube Scrotal Edema Numerous LE decubiti CBC, BMP 11/27/16 08:25 11/27/16 08:25 Active Medications Generic Name Dose Route Start Last Admin Trade Name Freq PRN Reason Stop Dose Admin Amino Acids 30 ml 11/25/16 08:00 11/27/16 12:06 Prosource No Carb Liquid Pkt PO Not Given BID@0800,1730 STEVEN Bacitracin 1 applic 11/25/16 10:00 11/26/16 10:26 Bacitracin - TP 1 applic DAILY STEVEN Administration Clotrimazole 1 applic 11/25/16 10:00 11/26/16 21:28 Lotrimin 1% Solution - TP 1 applic BID STEVEN Administration Collagenase 1 applic 11/25/16 10:00 11/26/16 15:15 Santyl - TP 1 applic DAILY STEVEN Administration Fluconazole 200 mg 11/25/16 10:00 11/27/16 12:07 Diflucan 40mg/Ml Suspension - PEG Not Given DAILY STEVEN Hydrocortisone Sodium Succinate 50 mg 11/25/16 05:30 11/27/16 09:00 Solu-Cortef - IVPB 50 mg Q6H-IV STEVEN Administration Dopamine HCl/Dextrose 250 mls @ 16.542 mls/hr 11/25/16 03:35 11/27/16 10:00 Dopamine 400 Mg/D5w - IVPB 3 mcg/kg/min TITR STEVEN Titration Protocol 5 MCG/KG/MIN Piperacillin Sod/Tazobactam Sod 50 mls @ 100 mls/hr 11/25/16 10:00 11/27/16 10: 00 Zosyn 2.25gm Ivpb (Pre-Docked) IVPB 100 mls/hr Q8H-IV STEVEN Administration Protocol Ertapenem 1 gm/ Sodium 50 mls @ 100 mls/hr 11/25/16 10:00 11/27/16 12:07 Chloride IVPB 100 mls/hr DAILY [facility] Administration Protocol Insulin Aspart 1 vial 11/25/16 06:00 11/27/16 12:16 Novolog Vial Sliding Scale - SQ Not Given Q6HPO [facility] Protocol Ketoconazole 1 applic 11/25/16 10:00 11/26/16 10:33 Nizoral 2% Cream - TP 1 applic DAILY [facility] Administration Morphine Sulfate 1 mg 11/25/16 09:23 Morphine Injection - IVPUSH Q4H PRN PAIN Pantoprazole Sodium 40 mg 11/25/16 10:00 11/27/16 12:07 Protonix Packets For Oral Suspension - NGT Not Given DAILY [facility] Potassium Phos/Sodium Phos 1 packet 11/25/16 10:00 11/27/16 12:07 Phos-Nak Packet - PO Not Given BID [facility] Impression: Problems as outlined above DIC- likely secondary to sepsis Transfuse if Hb <7-8 or Platelts <15 or if bleeding or procedures. Poor prognosis
[2016-11-27] MEDS: COLLAGENASE CLOSTRIDIUM HIST. 30 GRAMS TUBE TP SCH (14:33)
[2016-11-27] MEDS: KETOCONAZOLE 2% CREAM - 60GM TUBE TP SCH (14:35)
[2016-11-27] MEDS: CLOTRIMAZOLE 1%TOPICAL SOLUTION 30 ML BOTTLE TP SCH ×2 (14:36→22:06)
[2016-11-27] MEDS: BACITRACIN 30 GM TUBE TOPICAL OINTMENT TP SCH (14:36)
--- NOTE | 2016-11-27 17:48 | PN ---
Progress Note, Physician History of Present Illness: hypothermic otherwise stable no new events - Current Medication List Current Medications: Active Medications Amino Acids (Prosource No Carb Liquid Pkt) 30 ml PO BID@0800,1730 [facility] Last Admin: 11/27/16 12:06 Dose: Not Given Bacitracin (Bacitracin -) 1 applic TP DAILY [facility] Last Admin: 11/27/16 14:36 Dose: 1 applic Clotrimazole (Lotrimin 1% Solution -) 1 applic TP BID [facility] Last Admin: 11/27/16 14:36 Dose: 1 applic Collagenase (Santyl -) 1 applic TP DAILY [facility] Last Admin: 11/27/16 14:33 Dose: 1 applic Fluconazole (Diflucan 40mg/Ml Suspension -) 200 mg PEG DAILY [facility] Last Admin: 11/27/16 12:07 Dose: Not Given Hydrocortisone Sodium Succinate (Solu-Cortef -) 50 mg IVPB Q6H-IV [facility] Last Admin: 11/27/16 16:19 Dose: 50 mg Dopamine HCl/Dextrose (Dopamine 400 Mg/D5w -) 250 mls @ 16.542 mls/hr IVPB TITR STEVEN; 5 MCG/KG/MIN PRN Reason: Protocol Last Titration: 11/27/16 14:00 Dose: 4 mcg/kg/min Piperacillin Sod/Tazobactam Sod (Zosyn 2.25gm Ivpb (Pre-Docked)) 50 mls @ 100 mls/hr IVPB Q8H-IV [facility] PRN Reason: Protocol Last Admin: 11/27/16 10:00 Dose: 100 mls/hr Ertapenem 1 gm/ Sodium (Chloride) 50 mls @ 100 mls/hr IVPB DAILY [facility] PRN Reason: Protocol Last Admin: 11/27/16 12:07 Dose: 100 mls/hr Insulin Aspart (Novolog Vial Sliding Scale -) 1 vial SQ Q6HPO [facility]EN PRN Reason: Protocol Last Admin: 11/27/16 12:16 Dose: Not Given Ketoconazole (Nizoral 2% Cream -) 1 applic TP DAILY [facility] Last Admin: 11/27/16 14:35 Dose: 1 applic Morphine Sulfate (Morphine Injection -) 1 mg IVPUSH Q4H PRN PRN Reason: PAIN Pantoprazole Sodium (Protonix Packets For Oral Suspension -) 40 mg NGT DAILY [facility] Last Admin: 11/27/16 12:07 Dose: Not Given Potassium Phos/Sodium Phos (Phos-Nak Packet -) 1 packet PO BID [facility] Last Admin: 11/27/16 12:07 Dose: Not Given - Objective Vital Signs: Vital Signs Temperature 96.9 F L 11/27/16 14:00 Pulse Rate 67 11/27/16 17:00 Respiratory Rate 13 11/27/16 17:00 Blood Pressure 105/61 11/27/16 17:00 O2 Sat by Pulse Oximetry (%) 100 11/27/16 09:00 Constitutional: Yes: Other Neck: Yes: Other Cardiovascular: Yes: Regular Rate and Rhythm Respiratory: Yes: Mechanically Ventilated, Other (trach) Gastrointestinal: Yes: Soft, Other (leaking around the peg tube) Musculoskeletal: Yes: Other Extremities: Yes: Other (pressure ulcers) Wound/Incision: Yes: Other (multiple ulcers decubitus ulcer) Neurological: Yes: Other Labs: CBC, BMP 11/27/16 08:25 11/27/16 08:25 INR, PTT INR 1.68 (0.82-1.09) H 11/24/16 08:10 Fibrinogen 220.0 mg/dL (238-498) L 11/24/16 08:10 Assessment/Plan decubitus ulcer multiple pressure ulcer infected peg tube site septic shock lactic acidosis hypotension hypothermia esrd cva gram positive bacteremia rash plan continue current mgmt continue abx patients prognosis is poor continue maintaining body temperature hold tube feeds continue pressors as needed will chedck sputum cx cc 40 min
[2016-11-28] MEDS: INSULIN SLIDING SCALE (NOVOLOG) 1 VIAL SQ SCH ×4 (00:30→17:04)
[2016-11-28] MEDS: DOPAMINE 400 MG/D5W - 250 ML IVPB SCH ×2 (01:50→08:44)
[2016-11-28] MEDS: PIPERACILLIN/TAZOB 2.25 GM 50 ML IVPB SCH ×3 (01:50→17:05)
[2016-11-28] MEDS: HYDROCORTISONE SOD SUCCINATE 100 MG/2 ML VIAL IVPB SCH ×4 (02:02→21:40)
[2016-11-28 06:18] LABS: MCH 30.8 pg (25.7-33.7); MCHC 33.3 g/dl (32.0-35.9); MEAN CELL VOLUME 92.5 fl (80-96); MEAN PLT VOLUME 10.9 fl (7.5-11.1); PLATELET COUNT 41 K/MM3 (134-434); RDW 23.7 % (11.9-15.9)
[2016-11-28] MEDS: BANATROL PLUS POWDER PACKET PEG SCH ×3 (06:18→21:40)
[2016-11-28 07:00] LABS: ALBUMIN 1.9 g/dl (3.4-5.0); BILIRUBIN,TOTAL 0.9 mg/dL (0.2-1.0); CALCIUM 7.7 mg/dL (8.5-10.1); CREATININE 1.9 mg/dL (0.7-1.3); TOT PROT 4.7 g/dl (6.4-8.2)
[2016-11-28 07:24] LABS: ARTERIAL BLD GAS O2 SATURATION 99.8 % (90-98.9); ARTERIAL BLOOD GAS BASE EXCESS -0.6 meq/l (-2-2); ARTERIAL BLOOD GAS HCO3 22.1 meq/L (22-26); ARTERIAL BLOOD GAS pH 7.48 (7.35-7.45)
[2016-11-28 07:25] LABS: ALLENS TEST POSITIVE; ART PUNCT SITE LEFT RADIAL; LPM/O2% 45%; MECH. VENT. Y; PT. ON O2? YES; TYPE OF O2 VENT; VENT RATE 12; VT/PRESS 450
[2016-11-28] MEDS: AMINO ACIDS/PROTEIN HYDROLYS 30 ML LIQUID.PKT PO SCH ×2 (08:44→16:33)
--- NOTE | 2016-11-28 09:35 | PN ---
Physical Exam: SUBJECTIVE: Patient seen and examined Patient resting in bed, NAD, opening eyes spontaneously. 96.6 F. BP 84/56 MAP 65 on Dopamine @4. Very edematous. Loose light brown diarrhea in rectal tube. No bleeding. No hematemesis. Anuric. PEG still leaking. Feeds stopped. OBJECTIVE: Vital Signs Period Temp Pulse Resp BP Sys/Vang Pulse Ox Last 24 Hr 96.6 F-97.2 F 60-81 12-18 81-122/48-69 98-100 GENERAL: unresponsive, opens eyes. 3+ anasarca HEAD: Normal with no signs of trauma. EYES: sclera anicteric, conjunctiva clear. ENT: moist mucous membranes. NECK: supple. LUNGS: diffuse ronchi, trach, vent. HEART: Regular rate and rhythm, S1, S2 ABDOMEN: Soft, very edematous and because of it hard, globally reduced bowel sounds, feels hard because of edema (increased) Peg in place leaking, dermatitis around peg EXTREMITIES: 1+ pulses, warm, 3+ edema. b/l pressure ulcers on heels with black echar. clean dressing in place Sacrum: unstageable pressure ulcer with yellow echar, malodorous. NEUROLOGICAL: symmetrical face PSYCH: unable to assess SKIN: Warm, dry, tinea corporis diffusely on abdomen, chest, improving Laboratory Results - last 24 hr 11/26/16 11/27/16 11/27/16 18:32 01:17 05:31 WBC RBC Hgb Hct MCV MCHC RDW Plt Count MPV Puncture Site ABG pH ABG pCO2 at Pt Temp ABG pO2 at Pt Temp ABG HCO3 ABG O2 Sat (Measured) ABG O2 Content ABG Base Excess Ron Test O2 Delivery Device Oxygen Flow Rate Vent Mode Vent Rate Mechanical Rate PEEP Pressure Support Vent Sodium Potassium Chloride Carbon Dioxide Anion Gap BUN Creatinine Creat Clearance w eGFR POC Glucometer 206.92116 134.81744 111.14310 Random Glucose Calcium Phosphorus Magnesium Total Bilirubin AST ALT Alkaline Phosphatase Total Protein Albumin 11/27/16 11/27/16 11/28/16 12:15 18:16 00:41 WBC RBC Hgb Hct MCV MCHC RDW Plt Count MPV Puncture Site ABG pH ABG pCO2 at Pt Temp ABG pO2 at Pt Temp ABG HCO3 ABG O2 Sat (Measured) ABG O2 Content ABG Base Excess Ron Test O2 Delivery Device Oxygen Flow Rate Vent Mode Vent Rate Mechanical Rate PEEP Pressure Support Vent Sodium Potassium Chloride Carbon Dioxide Anion Gap BUN Creatinine Creat Clearance w eGFR POC Glucometer 128.22015 124.48859 132.29242 Random Glucose Calcium Phosphorus Magnesium Total Bilirubin AST ALT Alkaline Phosphatase Total Protein Albumin 11/28/16 11/28/16 11/28/16 05:20 05:20 07:20 WBC 6.0 RBC 2.78 L Hgb 8.6 L Hct 25.7 L MCV 92.5 MCHC 33.3 RDW 23.7 H Plt Count 41 L MPV 10.9 Puncture Site Left radial ABG pH 7.48 H ABG pCO2 at Pt Temp 30.4 L ABG pO2 at Pt Temp 162.0 H* D ABG HCO3 22.1 ABG O2 Sat (Measured) 99.8 H* ABG O2 Content 12.1 L ABG Base Excess -0.6 Ron Test Positive O2 Delivery Device Vent Oxygen Flow Rate 45% Vent Mode A/c Vent Rate 12 Mechanical Rate Y PEEP 5.0 Pressure Support Vent 450 Sodium 140 Potassium 3.6 Chloride 103 Carbon Dioxide 23 Anion Gap 14 BUN 57 H Creatinine 1.9 H Creat Clearance w eGFR 34.55 POC Glucometer Random Glucose 112 H D Calcium 7.7 L Phosphorus 4.0 Magnesium 2.0 Total Bilirubin 0.9 AST 16 ALT 13 Alkaline Phosphatase 137 H Total Protein 4.7 L Albumin 1.9 L Active Medications Generic Name Dose Route Start Last Admin Trade Name Freq PRN Reason Stop Dose Admin Amino Acids 30 ml 11/25/16 08:00 11/28/16 08:44 Prosource No Carb Liquid Pkt PO Not Given BID@0800,1730 STEVEN Bacitracin 1 applic 11/25/16 10:00 11/27/16 14:36 Bacitracin - TP 1 applic DAILY [facility]EVEN Administration Clotrimazole 1 applic 11/25/16 10:00 11/27/16 22:06 Lotrimin 1% Solution - TP 1 applic BID STEVEN Administration Collagenase 1 applic 11/25/16 10:00 11/27/16 14:33 Santyl - TP 1 applic DAILY [facility]EN Administration Fluconazole 200 mg 11/25/16 10:00 11/27/16 12:07 Diflucan 40mg/Ml Suspension - PEG Not Given DAILY STEVEN Hydrocortisone Sodium Succinate 50 mg 11/25/16 05:30 11/28/16 02:02 Solu-Cortef - IVPB 50 mg Q6H-IV STEVEN Administration Dopamine HCl/Dextrose 250 mls @ 16.542 mls/hr 11/25/16 03:35 11/28/16 08:44 Dopamine 400 Mg/D5w - IVPB Not Given TITR STEVEN Protocol 5 MCG/KG/MIN Piperacillin Sod/Tazobactam Sod 50 mls @ 100 mls/hr 11/25/16 10:00 11/28/16 01: 50 Zosyn 2.25gm Ivpb (Pre-Docked) IVPB 100 mls/hr Q8H-IV [facility] Administration Protocol Ertapenem 1 gm/ Sodium 50 mls @ 100 mls/hr 11/25/16 10:00 11/27/16 12:07 Chloride IVPB 100 mls/hr DAILY [facility]EN Administration Protocol Insulin Aspart 1 vial 11/25/16 06:00 11/28/16 06:18 Novolog Vial Sliding Scale - SQ Not Given Q6HPO [facility]EVEN Protocol Ketoconazole 1 applic 11/25/16 10:00 11/27/16 14:35 Nizoral 2% Cream - TP 1 applic DAILY [facility]EVEN Administration Morphine Sulfate 1 mg 11/25/16 09:23 Morphine Injection - IVPUSH Q4H PRN PAIN Pantoprazole Sodium 40 mg 11/25/16 10:00 11/27/16 12:07 Protonix Packets For Oral Suspension - NGT Not Given DAILY [facility]EVEN Potassium Phos/Sodium Phos 1 packet 11/25/16 10:00 11/27/16 22:05 Phos-Nak Packet - PO Not Given BID [facility] ASSESSMENT/PLAN: This is a 76 yo M with PMH of hypotension, HLD, hypothyroidism, DM, COPD, ESRD, GERD, s/p tracheostomy, s/p gastrostomy presented to ER from [facility] for coffee ground emesis. Septic shock -likley source sacral decubitus ulcer -unstageable ulcer -evaluated by wound care. -no need for debridement at this time, dressing changes. Not healing -Gram Positive Bacteremia. Repeat culture negative -Lactic Acidosis -ID consult appreciated -wound culture: pseudomonas, ESBL -ertapenem day 11 and zosyn d 13 -strict I and O (anuric) -DIC still present -wean dopamine PEG leaking air, tube feed contents -GI consult to adjust contacted -hold feeds, peg medicine Tinea Corporis -lotrimin TP Dermatitis -on penis, around peg -bacitracin ointment Diarrhea -likely due to abx treatment -rectal tube -C diff toxin negative x 2 Hypothermia -john hugger PRN ESRD on HD -hold HD while on pressors -nephro consult appreciated Chronic Hypotension -wean off dopamine -Map>65 -hydrocortisone 50 q6 Acute on chronic Anemia -aggravated by GIB -coffee ground emesis resolved -total 3u pRBC this admission -hgb stable -monitor h/h -epogen -IV PPI BID DIC -due to sepsis -fibrinogen trending up -trend coags -Heme consult apprecited -no active bleed -Platelets 41 DM -BGM q6 -sliding scale Anoxic Encephalopathy -unresponsive -unlikely to have meaningful recovery -grave prognosis -palliative care consult spoke with family -Family wishes full code due to christian reasons FEN no IVF replete lytes prn tube feeds stopped Consulted medical ethics, will try to reach them today to expediate case review Dispo: ICU Problem List - Problems (1) GORDON (acute kidney injury) Code(s): N17.9 - ACUTE KIDNEY FAILURE, UNSPECIFIED (2) Anasarca Code(s): R60.1 - GENERALIZED EDEMA (3) Anemia Code(s): D64.9 - ANEMIA, UNSPECIFIED (4) CHF (congestive heart failure) Code(s): I50.9 - HEART FAILURE, UNSPECIFIED (5) CKD (chronic kidney disease) Code(s): N18.9 - CHRONIC KIDNEY DISEASE, UNSPECIFIED (6) Elevated INR Code(s): R79.1 - ABNORMAL COAGULATION PROFILE (7) Elevated brain natriuretic peptide (BNP) level Code(s): R79.89 - OTHER SPECIFIED ABNORMAL FINDINGS OF BLOOD CHEMISTRY (8) Fluid overload Code(s): E87.70 - FLUID OVERLOAD, UNSPECIFIED (9) History of CVA (cerebrovascular accident) Code(s): Z86.73 - PRSNL HX OF TIA (TIA), AND CEREB INFRC W/O RESID DEFICITS (10) Hypoalbuminemia Code(s): E88.09 - OTH DISORDERS OF PLASMA-PROTEIN METABOLISM, NEC (11) Hypotension Code(s): I95.9 - HYPOTENSION, UNSPECIFIED Qualifiers: Hypotension type: unspecified hypotension type Qualified Code(s): I95.9 - Hypotension, unspecified (12) Passes no urine Code(s): R34 - ANURIA AND OLIGURIA (13) Pressure ulcer Code(s): L89.90 - PRESSURE ULCER OF UNSPECIFIED SITE, UNSPECIFIED STAGE (14) Pressure ulcer of ankle Code(s): L89.509 - PRESSURE ULCER OF UNSPECIFIED ANKLE, UNSPECIFIED STAGE (15) Pressure ulcer of back Code(s): L89.109 - PRESSURE ULCER OF UNSP PART OF BACK, UNSPECIFIED STAGE (16) Sacral decubitus ulcer, stage IV Code(s): L89.154 - PRESSURE ULCER OF SACRAL REGION, STAGE 4 (17) Sepsis Code(s): A41.9 - SEPSIS, UNSPECIFIED ORGANISM Qualifiers: Sepsis type: sepsis due to unspecified organism Qualified Code(s): A41.9 - Sepsis, unspecified organism (18) Septic shock Code(s): A41.9 - SEPSIS, UNSPECIFIED ORGANISM R65.21 - SEVERE SEPSIS WITH SEPTIC SHOCK (19) Thrombocytopenia Code(s): D69.6 - THROMBOCYTOPENIA, UNSPECIFIED (20) Transaminitis Code(s): R74.0 - NONSPEC ELEV OF LEVELS OF TRANSAMNS & LACTIC ACID DEHYDRGNSE (21) Upper GI bleed Code(s): K92.2 - GASTROINTESTINAL HEMORRHAGE, UNSPECIFIED Visit type - Emergency Visit Emergency Visit: Yes ED Registration Date: 11/12/16 Care time: The patient presented to the Emergency Department on the above date and was hospitalized for further evaluation of their emergent condition. - New Patient This patient is new to me today: No - Critical Care Critical Care patient: Yes Total Critical Care Time (in minutes): 46 Critical Care Statement: The care of this patient involved high complexity decision making to prevent further life threatening deterioration of the patient 's condition and/or to evalute & treat vital organ system(s) failure or risk of failure. - Discharge Referral Referred to [facility] Med P.C.: No
[2016-11-28] MEDS: FLUCONAZOLE 40 MG/ML SUSPENSION 35 ML BOTTLE PEG SCH (10:05)
[2016-11-28] MEDS: NAPH,MB-DB/K PH,MBDB POWDER PACKET PO SCH ×2 (10:05→21:42)
[2016-11-28] MEDS: PANTOPRAZOLE SOD 40 MG SUSPENSION PACKET NGT SCH (10:05)
--- NOTE | 2016-11-28 11:32 | PN ---
Progress Note, Physician History of Present Illness: seen and examined this am in nad. no reported overnight events or new complaints. opens eyes spontaneously, does not follow commands. - Current Medication List Current Medications: Active Medications Amino Acids (Prosource No Carb Liquid Pkt) 30 ml PO BID@0800,1730 [facility] Last Admin: 11/28/16 08:44 Dose: Not Given Bacitracin (Bacitracin -) 1 applic TP DAILY [facility] Last Admin: 11/27/16 14:36 Dose: 1 applic Clotrimazole (Lotrimin 1% Solution -) 1 applic TP BID [facility] Last Admin: 11/27/16 22:06 Dose: 1 applic Collagenase (Santyl -) 1 applic TP DAILY [facility] Last Admin: 11/27/16 14:33 Dose: 1 applic Fluconazole (Diflucan 40mg/Ml Suspension -) 200 mg PEG DAILY [facility] Last Admin: 11/28/16 10:05 Dose: Not Given Hydrocortisone Sodium Succinate (Solu-Cortef -) 50 mg IVPB Q6H-IV [facility] Last Admin: 11/28/16 10:27 Dose: 50 mg Dopamine HCl/Dextrose (Dopamine 400 Mg/D5w -) 250 mls @ 16.542 mls/hr IVPB TITR STEVEN; 5 MCG/KG/MIN PRN Reason: Protocol Last Titration: 11/28/16 10:06 Dose: 2 mcg/kg/min Piperacillin Sod/Tazobactam Sod (Zosyn 2.25gm Ivpb (Pre-Docked)) 50 mls @ 100 mls/hr IVPB Q8H-IV STEVEN PRN Reason: Protocol Last Admin: 11/28/16 01:50 Dose: 100 mls/hr Ertapenem 1 gm/ Sodium (Chloride) 50 mls @ 100 mls/hr IVPB DAILY STEVEN PRN Reason: Protocol Last Admin: 11/27/16 12:07 Dose: 100 mls/hr Insulin Aspart (Novolog Vial Sliding Scale -) 1 vial SQ Q6HPO STEVEN PRN Reason: Protocol Last Admin: 11/28/16 06:18 Dose: Not Given Ketoconazole (Nizoral 2% Cream -) 1 applic TP DAILY [facility] Last Admin: 11/27/16 14:35 Dose: 1 applic Morphine Sulfate (Morphine Injection -) 1 mg IVPUSH Q4H PRN PRN Reason: PAIN Pantoprazole Sodium (Protonix Packets For Oral Suspension -) 40 mg NGT DAILY [facility] [place] Last Admin: 11/28/16 10:05 Dose: Not Given Potassium Phos/Sodium Phos (Phos-Nak Packet -) 1 packet PO BID [facility] Last Admin: 11/28/16 10:05 Dose: Not Given - Objective Vital Signs: Vital Signs Temperature 95.7 F L 11/28/16 10:00 Pulse Rate 84 11/28/16 10:06 Respiratory Rate 14 11/28/16 10:00 Blood Pressure 94/52 11/28/16 10:06 O2 Sat by Pulse Oximetry (%) 95 11/28/16 09:40 Constitutional: Yes: No Distress, Calm Eyes: Yes: Conjunctiva Clear, EOM Intact HENT: Yes: Atraumatic, Normocephalic Neck: Yes: Other (tracheostomy) Cardiovascular: Yes: Bradycardia, Murmur, S1, S2. No: Tachycardia, Pulse Irregular, Bruit, JVD, Gallop, Rub, S3, S4, Varicosities Respiratory: Yes: Regular, Diminished, Mechanically Ventilated, Other (trach). No: Rales, Rhonchi, Wheezes Gastrointestinal: Yes: Normal Bowel Sounds, Soft. No: Distention, Tenderness Musculoskeletal: Yes: Other (unable to assess) Edema: Yes Edema: LLE: 2+, RLE: 2+ Peripheral Pulses WNL: Yes Integumentary: Yes: Pressure Ulcer Neurological: Yes: Other (unable to asses) Psychiatric: Yes: Alert Labs: CBC, BMP 11/28/16 05:20 11/28/16 05:20 INR, PTT INR 1.68 (0.82-1.09) H 11/24/16 08:10 Fibrinogen 220.0 mg/dL (238-498) L 11/24/16 08:10 - ....Imaging Chest X-ray: Report Reviewed, Image Reviewed EKG: Report Reviewed, Image Reviewed Other: Report Reviewed, Image Reviewed (tele-sinus bradycardia, nsr, 30-70bpm, occ PVCs) Assessment/Plan 76 year old man with a history of hypotension on midodrine, hld, DMII, COPD, ESRD on HD, CVA 2009, tracheostomy with vent dependence, recent long hospital stay at [facility] with septic shock, anoxic encephalopathy, sent to [place], admitted with possible UGIB and septic shock with recurrent hypotension and presumed septic shock REC: Tele-sinus bradycardia/NSR 30-70s, no high degree heart block -no current indication for PPM, likely some degree of sick sinus syndrome also related to septic shock -brief Pafib during admission, not on full AC due to UGIB -cont care as per CCM
[2016-11-28] MEDS: ERTAPENEM SODIUM 1 GM in SODIUM CHLORIDE 50 ML IVPB SCH (11:33)
--- NOTE | 2016-11-28 12:13 | PN ---
Teaching Attending Note Name of Resident: Cl Torre ATTENDING PHYSICIAN STATEMENT I saw and evaluated the patient. I reviewed the resident's note and discussed the case with the resident. I agree with the resident's findings and plan as documented. SUBJECTIVE: Pt seen and examined in the ICU. Remains on dopamine gtt. Vented on volume assist control. No fevers recorded. OBJECTIVE: Last Vital Signs Temp Pulse Resp BP Pulse Ox 95.7 F L 84 13 94/52 95 11/28/16 10:00 11/28/16 10:06 11/28/16 12:04 11/28/16 10:06 11/28/16 12:05 Intake & Output 11/25/16 11/26/16 11/27/16 11/28/16 23:59 23:59 23:59 23:59 Intake Total 2953 1503.2 689.1 241 Output Total 0 0 0 0 Balance 2953 1503.2 689.1 241 Weight 198 lb 197 lb 3.2 oz 200 lb 6.4 oz Gen: vented, anasarca Heart: RRR Lung: scattered rhonchi Abd: soft, nontender Ext: + edema CBC, BMP 11/28/16 05:20 11/28/16 05:20 Active Medications Amino Acids (Prosource No Carb Liquid Pkt) 30 ml PO BID@0800,1730 [facility] Last Admin: 11/28/16 08:44 Dose: Not Given Bacitracin (Bacitracin -) 1 applic TP DAILY [facility] Last Admin: 11/27/16 14:36 Dose: 1 applic Clotrimazole (Lotrimin 1% Solution -) 1 applic TP BID [facility] Last Admin: 11/27/16 22:06 Dose: 1 applic Collagenase (Santyl -) 1 applic TP DAILY [facility] Last Admin: 11/27/16 14:33 Dose: 1 applic Fluconazole (Diflucan 40mg/Ml Suspension -) 200 mg PEG DAILY [facility] Last Admin: 11/28/16 10:05 Dose: Not Given Hydrocortisone Sodium Succinate (Solu-Cortef -) 50 mg IVPB Q6H-IV [facility] Last Admin: 11/28/16 10:27 Dose: 50 mg Dopamine HCl/Dextrose (Dopamine 400 Mg/D5w -) 250 mls @ 16.542 mls/hr IVPB TITR STEVEN; 5 MCG/KG/MIN PRN Reason: Protocol Last Titration: 11/28/16 10:06 Dose: 2 mcg/kg/min Piperacillin Sod/Tazobactam Sod (Zosyn 2.25gm Ivpb (Pre-Docked)) 50 mls @ 100 mls/hr IVPB Q8H-IV STEVEN PRN Reason: Protocol Last Admin: 11/28/16 11:00 Dose: 100 mls/hr Ertapenem 1 gm/ Sodium (Chloride) 50 mls @ 100 mls/hr IVPB DAILY [facility]EVEN PRN Reason: Protocol Last Admin: 11/28/16 11:33 Dose: 100 mls/hr Pantoprazole Sodium (Protonix 40mg Ivpb (Pre-Docked)) 100 mls @ 200 mls/hr IVPB DAILY [facility] Insulin Aspart (Novolog Vial Sliding Scale -) 1 vial SQ Q6HPO STEVEN PRN Reason: Protocol Last Admin: 11/28/16 11:00 Dose: 4 units Ketoconazole (Nizoral 2% Cream -) 1 applic TP DAILY [facility] Last Admin: 11/27/16 14:35 Dose: 1 applic Midodrine (Proamatine -) 5 mg PO BID-MID [facility] Morphine Sulfate (Morphine Injection -) 1 mg IVPUSH Q4H PRN PRN Reason: PAIN Pantoprazole Sodium (Protonix Packets For Oral Suspension -) 40 mg NGT DAILY [facility] Last Admin: 11/28/16 10:05 Dose: Not Given Potassium Phos/Sodium Phos (Phos-Nak Packet -) 1 packet PO BID [facility] Last Admin: 11/28/16 10:05 Dose: Not Given ASSESSMENT AND PLAN: Sacral Decubitus Ulcer Infection Gram Positive Bacteremia Septic Shock ESRD on HD Chronic Respiratory Failure Chronic Hypotension h/o CVA Anoxic Encephalopathy Anemia Thrombocytopenia - taper off pressors - resume midodrine - tolerate MAP >50 - continue antibiotics per ID - wound care - continue steroids - HD per renal - poor prognosis for any meaningful recovery, approaching medical futility, recommend palliative care - DVT/GI prophylaxis
[2016-11-28] MEDS: BACITRACIN 30 GM TUBE TOPICAL OINTMENT TP SCH (12:17)
[2016-11-28] MEDS: CLOTRIMAZOLE 1%TOPICAL SOLUTION 30 ML BOTTLE TP SCH ×2 (12:17→21:42)
[2016-11-28] MEDS: PANTOPRAZOLE SODIUM 100 ML IVPB SCH (12:17)
[2016-11-28] MEDS: COLLAGENASE CLOSTRIDIUM HIST. 30 GRAMS TUBE TP SCH (12:18)
[2016-11-28] MEDS: KETOCONAZOLE 2% CREAM - 60GM TUBE TP SCH (12:18)
--- NOTE | 2016-11-28 12:53 | PN ---
Progress Note, Physician History of Present Illness: Pt seen and examined at bedside. He remains in the ICU. Pt remains intubated. - Current Medication List Current Medications: Active Medications Amino Acids (Prosource No Carb Liquid Pkt) 30 ml PO BID@0800,1730 [facility] Last Admin: 11/28/16 08:44 Dose: Not Given Bacitracin (Bacitracin -) 1 applic TP DAILY [facility] Last Admin: 11/28/16 12:17 Dose: 1 applic Clotrimazole (Lotrimin 1% Solution -) 1 applic TP BID [facility] Last Admin: 11/28/16 12:17 Dose: 1 applic Collagenase (Santyl -) 1 applic TP DAILY [facility] Last Admin: 11/28/16 12:18 Dose: 1 applic Fluconazole (Diflucan 40mg/Ml Suspension -) 200 mg PEG DAILY [facility] Last Admin: 11/28/16 10:05 Dose: Not Given Hydrocortisone Sodium Succinate (Solu-Cortef -) 50 mg IVPB Q6H-IV [facility] Last Admin: 11/28/16 10:27 Dose: 50 mg Dopamine HCl/Dextrose (Dopamine 400 Mg/D5w -) 250 mls @ 16.542 mls/hr IVPB TITR STEVEN; 5 MCG/KG/MIN PRN Reason: Protocol Last Titration: 11/28/16 10:06 Dose: 2 mcg/kg/min Piperacillin Sod/Tazobactam Sod (Zosyn 2.25gm Ivpb (Pre-Docked)) 50 mls @ 100 mls/hr IVPB Q8H-IV [facility] PRN Reason: Protocol Last Admin: 11/28/16 11:00 Dose: 100 mls/hr Ertapenem 1 gm/ Sodium (Chloride) 50 mls @ 100 mls/hr IVPB DAILY [facility] PRN Reason: Protocol Last Admin: 11/28/16 11:33 Dose: 100 mls/hr Pantoprazole Sodium (Protonix 40mg Ivpb (Pre-Docked)) 100 mls @ 200 mls/hr IVPB DAILY [facility] Last Admin: 11/28/16 12:17 Dose: 200 mls/hr Insulin Aspart (Novolog Vial Sliding Scale -) 1 vial SQ Q6HPO [facility] PRN Reason: Protocol Last Admin: 11/28/16 11:00 Dose: 4 units Ketoconazole (Nizoral 2% Cream -) 1 applic TP DAILY [facility] Last Admin: 11/28/16 12:18 Dose: Not Given Midodrine (Proamatine -) 5 mg PO BID-MID [facility] Morphine Sulfate (Morphine Injection -) 1 mg IVPUSH Q4H PRN PRN Reason: PAIN Pantoprazole Sodium (Protonix Packets For Oral Suspension -) 40 mg NGT DAILY [facility] Last Admin: 11/28/16 10:05 Dose: Not Given Potassium Phos/Sodium Phos (Phos-Nak Packet -) 1 packet PO BID [facility] Last Admin: 11/28/16 10:05 Dose: Not Given - Objective Vital Signs: Vital Signs Temperature 95.7 F L 11/28/16 10:00 Pulse Rate 84 11/28/16 10:06 Respiratory Rate 13 11/28/16 12:04 Blood Pressure 94/52 11/28/16 10:06 O2 Sat by Pulse Oximetry (%) 95 11/28/16 12:05 Constitutional: Yes: Calm Neck: Yes: Other (trache) Cardiovascular: Yes: S1, S2 Respiratory: Yes: Mechanically Ventilated Gastrointestinal: Yes: Soft Genitourinary: Yes: Anuria Musculoskeletal: Yes: Muscle Weakness Edema: Yes Integumentary: Yes: Pressure Ulcer Neurological: Yes: Lethargy Labs: CBC, BMP 11/28/16 05:20 11/28/16 05:20 INR, PTT INR 1.68 (0.82-1.09) H 11/24/16 08:10 Fibrinogen 220.0 mg/dL (238-498) L 11/24/16 08:10 - ....Imaging Chest X-ray: Report Reviewed Problem List - Problems (1) GORDON (acute kidney injury) Code(s): N17.9 - ACUTE KIDNEY FAILURE, UNSPECIFIED (2) Anasarca Code(s): R60.1 - GENERALIZED EDEMA (3) Anemia Code(s): D64.9 - ANEMIA, UNSPECIFIED (4) CHF (congestive heart failure) Code(s): I50.9 - HEART FAILURE, UNSPECIFIED (5) CKD (chronic kidney disease) Code(s): N18.9 - CHRONIC KIDNEY DISEASE, UNSPECIFIED (6) Fluid overload Code(s): E87.70 - FLUID OVERLOAD, UNSPECIFIED (7) History of CVA (cerebrovascular accident) Code(s): Z86.73 - PRSNL HX OF TIA (TIA), AND CEREB INFRC W/O RESID DEFICITS Assessment/Plan Current Medications Generic Name Dose Route Start Last Admin Trade Name Armando PRN Reason Stop Dose Admin Amino Acids 30 ml 11/25/16 08:00 11/28/16 08:44 Prosource No Carb Liquid Pkt PO Not Given BID@0800,1730 [facility] Bacitracin 1 applic 11/25/16 10:00 11/28/16 12:17 Bacitracin - TP 1 applic DAILY [facility] Administration Clotrimazole 1 applic 11/25/16 10:00 11/28/16 12:17 Lotrimin 1% Solution - TP 1 applic BID [facility] Administration Collagenase 1 applic 11/25/16 10:00 11/28/16 12:18 Santyl - TP 1 applic DAILY [facility] Administration Fluconazole 200 mg 11/25/16 10:00 11/28/16 10:05 Diflucan 40mg/Ml Suspension - PEG Not Given DAILY [facility] Hydrocortisone Sodium Succinate 50 mg 11/25/16 05:30 11/28/16 10:27 Solu-Cortef - IVPB 50 mg Q6H-IV [facility] Administration Dopamine HCl/Dextrose 250 mls @ 16.542 mls/hr 11/25/16 03:35 11/28/16 10:06 Dopamine 400 Mg/D5w - IVPB 2 mcg/kg/min TITR [facility] Titration Protocol 5 MCG/KG/MIN Piperacillin Sod/Tazobactam Sod 50 mls @ 100 mls/hr 11/25/16 10:00 11/28/16 11: 00 Zosyn 2.25gm Ivpb (Pre-Docked) IVPB 100 mls/hr Q8H-IV [facility] Administration Protocol Ertapenem 1 gm/ Sodium 50 mls @ 100 mls/hr 11/25/16 10:00 11/28/16 11:33 Chloride IVPB 100 mls/hr DAILY [facility] Administration Protocol Pantoprazole Sodium 100 mls @ 200 mls/hr 11/29/16 10:00 11/28/16 12:17 Protonix 40mg Ivpb (Pre-Docked) IVPB 200 mls/hr DAILY [facility] Administration Insulin Aspart 1 vial 11/25/16 06:00 11/28/16 11:00 Novolog Vial Sliding Scale - SQ 4 units Q6HPO [facility] Administration Protocol Ketoconazole 1 applic 11/25/16 10:00 11/28/16 12:18 Nizoral 2% Cream - TP Not Given DAILY [facility] Midodrine 5 mg 11/28/16 18:00 Proamatine - PO BID-MID [facility] Morphine Sulfate 1 mg 11/25/16 09:23 Morphine Injection - IVPUSH Q4H PRN PAIN Pantoprazole Sodium 40 mg 11/25/16 10:00 11/28/16 10:05 Protonix Packets For Oral Suspension - NGT Not Given DAILY [facility] Potassium Phos/Sodium Phos 1 packet 11/25/16 10:00 11/28/16 10:05 Phos-Nak Packet - PO Not Given BID STEVEN Impression 1. ESRD 2. hypotension 3. chronic respiratory failure 4. sepsis 5. Anemia 6. GI bleed 7. CVA 8. DM 9. Hypothyroidism 10. pancytopenia Plan - will arrange for HD in am - monitor blood pressure and titrate pressors - cont wound care - vent support - epogen for anemia - overall prognosis is poor - will follow Dr Mireles
--- NOTE | 2016-11-28 14:25 | PN ---
Physical Exam: SUBJECTIVE: Patient seen and examined OBJECTIVE: Vital Signs Period Temp Pulse Resp BP Sys/Vang Pulse Ox Last 24 Hr 95.7 F-97.5 F 49-84 12-18 64-122/38-68 95-100 GENERAL: The patient is nonverbal, contracted, lying in bed, open his eyes HEAD: Normal with no signs of trauma. EYES: right eye operated, left eye 2 mm slugish reacting ENT: moist oral mucosa , nares patent NECK: tracheostomy present, attached to venti. LUNGS: decreased Breath sounds BL base , diffuse ronchi HEART: 1s2 normal, regular. ABDOMEN: Soft, nontender, g tube in situ, excoriation of skin around g tube lower EXTREMITIES: swollen, multiple ulcers present on b/l lower extremities. upper extremities swollen, pedal edema present MUSCULOSKELETAL: Contracted, bed sore on sacrum present. PSYCH: Unable to access SKIN: Warm, dry,multiple pressure ulcers (on feet, calves, back, gluteal region ) with Decubitus Ulcer Laboratory Results - last 24 hr 11/26/16 11/27/16 11/27/16 18:32 01:17 05:31 WBC RBC Hgb Hct MCV MCHC RDW Plt Count MPV Puncture Site ABG pH ABG pCO2 at Pt Temp ABG pO2 at Pt Temp ABG HCO3 ABG O2 Sat (Measured) ABG O2 Content ABG Base Excess Ron Test O2 Delivery Device Oxygen Flow Rate Vent Mode Vent Rate Mechanical Rate PEEP Pressure Support Vent Sodium Potassium Chloride Carbon Dioxide Anion Gap BUN Creatinine Creat Clearance w eGFR POC Glucometer 206.07705 134.62686 111.46429 Random Glucose Calcium Phosphorus Magnesium Total Bilirubin AST ALT Alkaline Phosphatase Total Protein Albumin 11/27/16 11/27/16 11/28/16 12:15 18:16 00:41 WBC RBC Hgb Hct MCV MCHC RDW Plt Count MPV Puncture Site ABG pH ABG pCO2 at Pt Temp ABG pO2 at Pt Temp ABG HCO3 ABG O2 Sat (Measured) ABG O2 Content ABG Base Excess Ron Test O2 Delivery Device Oxygen Flow Rate Vent Mode Vent Rate Mechanical Rate PEEP Pressure Support Vent Sodium Potassium Chloride Carbon Dioxide Anion Gap BUN Creatinine Creat Clearance w eGFR POC Glucometer 128.32948 124.74493 132.18915 Random Glucose Calcium Phosphorus Magnesium Total Bilirubin AST ALT Alkaline Phosphatase Total Protein Albumin 11/28/16 11/28/16 11/28/16 05:20 05:20 05:30 WBC 6.0 RBC 2.78 L Hgb 8.6 L Hct 25.7 L MCV 92.5 MCHC 33.3 RDW 23.7 H Plt Count 41 L MPV 10.9 Puncture Site ABG pH ABG pCO2 at Pt Temp ABG pO2 at Pt Temp ABG HCO3 ABG O2 Sat (Measured) ABG O2 Content ABG Base Excess Ron Test O2 Delivery Device Oxygen Flow Rate Vent Mode Vent Rate Mechanical Rate PEEP Pressure Support Vent Sodium 140 Potassium 3.6 Chloride 103 Carbon Dioxide 23 Anion Gap 14 BUN 57 H Creatinine 1.9 H Creat Clearance w eGFR 34.55 POC Glucometer 107.38653 Random Glucose 112 H D Calcium 7.7 L Phosphorus 4.0 Magnesium 2.0 Total Bilirubin 0.9 AST 16 ALT 13 Alkaline Phosphatase 137 H Total Protein 4.7 L Albumin 1.9 L 11/28/16 11/28/16 11/28/16 05:33 07:20 10:57 WBC RBC Hgb Hct MCV MCHC RDW Plt Count MPV Puncture Site Left radial ABG pH 7.48 H ABG pCO2 at Pt Temp 30.4 L ABG pO2 at Pt Temp 162.0 H* D ABG HCO3 22.1 ABG O2 Sat (Measured) 99.8 H* ABG O2 Content 12.1 L ABG Base Excess -0.6 Ron Test Positive O2 Delivery Device Vent Oxygen Flow Rate 45% Vent Mode A/c Vent Rate 12 Mechanical Rate Y PEEP 5.0 Pressure Support Vent 450 Sodium Potassium Chloride Carbon Dioxide Anion Gap BUN Creatinine Creat Clearance w eGFR POC Glucometer 149.85461 203.11040 Random Glucose Calcium Phosphorus Magnesium Total Bilirubin AST ALT Alkaline Phosphatase Total Protein Albumin Active Medications Generic Name Dose Route Start Last Admin Trade Name Freq PRN Reason Stop Dose Admin Albumin Human 12.5 gm 11/29/16 13:00 Albumin Human 25% IVPB Q30M [facility] Amino Acids 30 ml 11/25/16 08:00 11/28/16 08:44 Prosource No Carb Liquid Pkt PO Not Given BID@0800,1730 [facility] Bacitracin 1 applic 11/25/16 10:00 11/28/16 12:17 Bacitracin - TP 1 applic DAILY [facility] Administration Clotrimazole 1 applic 11/25/16 10:00 11/28/16 12:17 Lotrimin 1% Solution - TP 1 applic BID [facility] Administration Collagenase 1 applic 11/25/16 10:00 11/28/16 12:18 Santyl - TP 1 applic DAILY [facility] Administration Epoetin Rigoberto 8,000 units 11/29/16 12:53 Epogen - IVPUSH 11/29/16 12:54 ONCE ONE Fluconazole 200 mg 11/25/16 10:00 11/28/16 10:05 Diflucan 40mg/Ml Suspension - PEG Not Given DAILY [facility] Hydrocortisone Sodium Succinate 50 mg 11/25/16 05:30 11/28/16 14:11 Solu-Cortef - IVPB 50 mg Q6H-IV [facility] Administration Dopamine HCl/Dextrose 250 mls @ 16.542 mls/hr 11/25/16 03:35 11/28/16 14:19 Dopamine 400 Mg/D5w - IVPB 3 mcg/kg/min TITR [facility] Titration Protocol 5 MCG/KG/MIN Piperacillin Sod/Tazobactam Sod 50 mls @ 100 mls/hr 11/25/16 10:00 11/28/16 11: 00 Zosyn 2.25gm Ivpb (Pre-Docked) IVPB 100 mls/hr Q8H-IV [facility] Administration Protocol Ertapenem 1 gm/ Sodium 50 mls @ 100 mls/hr 11/25/16 10:00 11/28/16 11:33 Chloride IVPB 100 mls/hr DAILY [facility] Administration Protocol Pantoprazole Sodium 100 mls @ 200 mls/hr 11/29/16 10:00 11/28/16 12:17 Protonix 40mg Ivpb (Pre-Docked) IVPB 200 mls/hr DAILY [facility] Administration Insulin Aspart 1 vial 11/25/16 06:00 11/28/16 11:00 Novolog Vial Sliding Scale - SQ 4 units Q6HPO [facility] Administration Protocol Ketoconazole 1 applic 11/25/16 10:00 11/28/16 12:18 Nizoral 2% Cream - TP Not Given DAILY [facility] Midodrine 5 mg 11/28/16 18:00 Proamatine - PO BID-MID [facility] Morphine Sulfate 1 mg 11/25/16 09:23 Morphine Injection - IVPUSH Q4H PRN PAIN Pantoprazole Sodium 40 mg 11/25/16 10:00 11/28/16 10:05 Protonix Packets For Oral Suspension - NGT Not Given DAILY [facility] Potassium Phos/Sodium Phos 1 packet 11/25/16 10:00 11/28/16 10:05 Phos-Nak Packet - PO Not Given BID [facility] ASSESSMENT/PLAN: This is a 76 yo M with PMH of hypotension, HLD, hypothyroidism, DM, COPD, ESRD, GERD, s/p tracheostomy, s/p gastrostomy presented to ER from [facility] for coffee ground emesis. Septic shock -likley source sacral decubitus ulcer - on ertapenem, zosyn -ID consult appreciated -wound culture: pseudomonas, ESBL -strict I and O (anuric) - monitor vitals - follow blood, urine culture - Taper dopamin Tinea Corporis on clotrimazole, ketoconazoel and flucan Diarrhea -rectal tube -C diff toxin negative x 2 Hypothermia -john hassan PRN ESRD on HD -HD as per nephrology -nephro consult appreciated Acute on chronic Anemia -total 3u pRBC this admission h/o gi bleed -hgb stable -monitor h/h -epogen -continue IV PPI BID DIC could from sepsis platelet improving DM -BGM q6 -sliding scale Anoxic Encephalopathy -unresponsive -unlikely to have meaningful recovery -grave prognosis -palliative care consult spoke with family -Family wishes full code due to congregation reasons FEN avoid iv fluid repete lytes in morning continue tube feed. gastro consult for tube susy dispo: in icu Visit type - Emergency Visit Emergency Visit: Yes ED Registration Date: 11/12/16 Care time: The patient presented to the Emergency Department on the above date and was hospitalized for further evaluation of their emergent condition. - New Patient This patient is new to me today: No - Critical Care Critical Care patient: Yes Total Critical Care Time (in minutes): 45 Critical Care Statement: The care of this patient involved high complexity decision making to prevent further life threatening deterioration of the patient 's condition and/or to evalute & treat vital organ system(s) failure or risk of failure.
[2016-11-28] MEDS: MIDODRINE HCL 5 MG TABLET PO SCH (17:05)
--- NOTE | 2016-11-28 17:32 | PN ---
Progress Note, Physician History of Present Illness: continues to do poorly still with no other issues hypothermia septic - Current Medication List Current Medications: Active Medications Albumin Human (Albumin Human 25%) 12.5 gm IVPB Q30M [facility] Amino Acids (Prosource No Carb Liquid Pkt) 30 ml PO BID@0800,1730 [facility] Last Admin: 11/28/16 16:33 Dose: Not Given Bacitracin (Bacitracin -) 1 applic TP DAILY [facility] Last Admin: 11/28/16 12:17 Dose: 1 applic Clotrimazole (Lotrimin 1% Solution -) 1 applic TP BID [facility] Last Admin: 11/28/16 12:17 Dose: 1 applic Collagenase (Santyl -) 1 applic TP DAILY [facility] Last Admin: 11/28/16 12:18 Dose: 1 applic Epoetin Rigoberto (Epogen -) 8,000 units IVPUSH ONCE ONE Stop: 11/29/16 10:01 Fluconazole (Diflucan 40mg/Ml Suspension -) 200 mg PEG DAILY [facility] Last Admin: 11/28/16 10:05 Dose: Not Given Hydrocortisone Sodium Succinate (Solu-Cortef -) 50 mg IVPB Q6H-IV [facility] Last Admin: 11/28/16 14:11 Dose: 50 mg Dopamine HCl/Dextrose (Dopamine 400 Mg/D5w -) 250 mls @ 16.542 mls/hr IVPB TITR [facility]EV[facility]; 5 MCG/KG/MIN PRN Reason: Protocol Last Titration: 11/28/16 14:19 Dose: 3 mcg/kg/min Piperacillin Sod/Tazobactam Sod (Zosyn 2.25gm Ivpb (Pre-Docked)) 50 mls @ 100 mls/hr IVPB Q8H-IV [facility] PRN Reason: Protocol Last Admin: 11/28/16 17:05 Dose: 100 mls/hr Ertapenem 1 gm/ Sodium (Chloride) 50 mls @ 100 mls/hr IVPB DAILY [facility] PRN Reason: Protocol Last Admin: 11/28/16 11:33 Dose: 100 mls/hr Pantoprazole Sodium (Protonix 40mg Ivpb (Pre-Docked)) 100 mls @ 200 mls/hr IVPB DAILY [facility] Last Admin: 11/28/16 12:17 Dose: 200 mls/hr Insulin Aspart (Novolog Vial Sliding Scale -) 1 vial SQ Q6HPO [facility] PRN Reason: Protocol Last Admin: 11/28/16 17:04 Dose: Not Given Ketoconazole (Nizoral 2% Cream -) 1 applic TP DAILY [facility] Last Admin: 11/28/16 12:18 Dose: Not Given Midodrine (Proamatine -) 5 mg PO BID-MID [facility] Last Admin: 11/28/16 17:05 Dose: Not Given Morphine Sulfate (Morphine Injection -) 1 mg IVPUSH Q4H PRN PRN Reason: PAIN Pantoprazole Sodium (Protonix Packets For Oral Suspension -) 40 mg NGT DAILY [facility] Last Admin: 11/28/16 10:05 Dose: Not Given Potassium Phos/Sodium Phos (Phos-Nak Packet -) 1 packet PO BID [facility] Last Admin: 11/28/16 10:05 Dose: Not Given - Objective Vital Signs: Vital Signs Temperature 97.5 F L 11/28/16 13:00 Pulse Rate 70 11/28/16 15:00 Respiratory Rate 12 11/28/16 16:51 Blood Pressure 85/51 11/28/16 15:00 O2 Sat by Pulse Oximetry (%) 98 11/28/16 15:30 Constitutional: Yes: Other Cardiovascular: Yes: Regular Rate and Rhythm Respiratory: Yes: Mechanically Ventilated, Other (trach) Gastrointestinal: Yes: Soft, Other (peg tube leaking) Musculoskeletal: Yes: Other Extremities: Yes: Other (multiple ulcers) Wound/Incision: Yes: Other (decubitus ulcers) Neurological: Yes: Other Labs: CBC, BMP 11/28/16 05:20 11/28/16 05:20 INR, PTT INR 1.68 (0.82-1.09) H 11/24/16 08:10 Fibrinogen 220.0 mg/dL (238-498) L 11/24/16 08:10 Assessment/Plan decubitus ulcer multiple pressure ulcer infected peg tube site septic shock lactic acidosis hypotension hypothermia esrd cva gram positive bacteremia rash plan continue current mgmt continue abx patients prognosis is poor continue maintaining body temperature hold tube feeds continue pressors as needed sputum cx showing multi drug resistant organism will add citlalli to the mix we will ahve to decide the last goals as he is going to become resistant to all abx very soon cc 40 min
[2016-11-28] MEDS ORDERED: TIGECYCLINE 100 MG in DEXTROSE 5%-WATER - 100 ML IVPB ONE (18:00)
--- NOTE | 2016-11-28 21:53 | PN ---
Teaching Attending Note Name of Resident: Ros Dias ATTENDING PHYSICIAN STATEMENT I saw and evaluated the patient. I reviewed the resident's note and discussed the case with the resident. I agree with the resident's findings and plan as documented. Non verbal , poor prognosis Vital Signs Temperature 97.7 F 11/28/16 17:52 Pulse Rate 85 11/28/16 20:00 Respiratory Rate 12 11/28/16 20:53 Blood Pressure 87/53 11/28/16 20:00 O2 Sat by Pulse Oximetry (%) 100 11/28/16 20:53 CBCD WBC 6.0 K/mm3 (4.0-10.0) 11/28/16 05:20 RBC 2.78 M/mm3 (4.00-5.60) L 11/28/16 05:20 Hgb 8.6 GM/dL (11.7-16.9) L 11/28/16 05:20 Hct 25.7 % (35.4-49) L 11/28/16 05:20 MCV 92.5 fl (80-96) 11/28/16 05:20 MCHC 33.3 g/dl (32.0-35.9) 11/28/16 05:20 RDW 23.7 % (11.9-15.9) H 11/28/16 05:20 Plt Count 41 K/MM3 (134-434) L 11/28/16 05:20 MPV 10.9 fl (7.5-11.1) 11/28/16 05:20 CMP Sodium 140 mmol/L (136-145) 11/28/16 05:20 Potassium 3.6 mmol/L (3.5-5.1) 11/28/16 05:20 Chloride 103 mmol/L (98-107) 11/28/16 05:20 Carbon Dioxide 23 mmol/L (21-32) 11/28/16 05:20 Anion Gap 14 (8-16) 11/28/16 05:20 BUN 57 mg/dL (7-18) H 11/28/16 05:20 Creatinine 1.9 mg/dL (0.7-1.3) H 11/28/16 05:20 Creat Clearance w eGFR 34.55 (>60) 11/28/16 05:20 Random Glucose 112 mg/dL (74-106) H D 11/28/16 05:20 Calcium 7.7 mg/dL (8.5-10.1) L 11/28/16 05:20 Total Bilirubin 0.9 mg/dL (0.2-1.0) 11/28/16 05:20 AST 16 U/L (15-37) 11/28/16 05:20 ALT 13 U/L (12-78) 11/28/16 05:20 Alkaline Phosphatase 137 U/L (45-117) H 11/28/16 05:20 Total Protein 4.7 g/dl (6.4-8.2) L 11/28/16 05:20 Albumin 1.9 g/dl (3.4-5.0) L 11/28/16 05:20 CARDIAC ENZYMES Creatine Kinase 28 IU/L (39-308) L 11/12/16 01:41 Troponin I 0.08 ng/ml (0.00-0.05) H D 11/12/16 08:10 Current Medications Generic Name Dose Route Start Last Admin Trade Name Armando PRN Reason Stop Dose Admin Albumin Human 12.5 gm 11/29/16 13:00 Albumin Human 25% IVPB Q30M [facility] Amino Acids 30 ml 11/25/16 08:00 11/28/16 16:33 Prosource No Carb Liquid Pkt PO Not Given BID@0800,1730 [facility] Bacitracin 1 applic 11/25/16 10:00 11/28/16 12:17 Bacitracin - TP 1 applic DAILY [facility] Administration Clotrimazole 1 applic 11/25/16 10:00 11/28/16 21:42 Lotrimin 1% Solution - TP 1 applic BID [facility] Administration Collagenase 1 applic 11/25/16 10:00 11/28/16 12:18 Santyl - TP 1 applic DAILY [facility] Administration Epoetin Rigoberto 8,000 units 11/29/16 10:00 Epogen - IVPUSH 11/29/16 10:01 ONCE ONE Fluconazole 200 mg 11/25/16 10:00 11/28/16 10:05 Diflucan 40mg/Ml Suspension - PEG Not Given DAILY [facility] Hydrocortisone Sodium Succinate 50 mg 11/25/16 05:30 11/28/16 21:40 Solu-Cortef - IVPB 50 mg Q6H-IV [facility] Administration Dopamine HCl/Dextrose 250 mls @ 16.542 mls/hr 11/25/16 03:35 11/28/16 14:19 Dopamine 400 Mg/D5w - IVPB 3 mcg/kg/min TITR STEVEN Titration Protocol 5 MCG/KG/MIN Piperacillin Sod/Tazobactam Sod 50 mls @ 100 mls/hr 11/25/16 10:00 11/28/16 17: 05 Zosyn 2.25gm Ivpb (Pre-Docked) IVPB 100 mls/hr Q8H-IV [facility] Administration Protocol Ertapenem 1 gm/ Sodium 50 mls @ 100 mls/hr 11/25/16 10:00 11/28/16 11:33 Chloride IVPB 100 mls/hr DAILY [facility] Administration Protocol Pantoprazole Sodium 100 mls @ 200 mls/hr 11/29/16 10:00 11/28/16 12:17 Protonix 40mg Ivpb (Pre-Docked) IVPB 200 mls/hr DAILY [facility] Administration Tigecycline 50 mg/ Dextrose 100 mls @ 200 mls/hr 11/29/16 06:00 IVPB BID@0600,1800 [facility] Insulin Aspart 1 vial 11/25/16 06:00 11/28/16 17:04 Novolog Vial Sliding Scale - SQ Not Given Q6HPO [facility] Protocol Ketoconazole 1 applic 11/25/16 10:00 11/28/16 12:18 Nizoral 2% Cream - TP Not Given DAILY [facility] Midodrine 5 mg 11/28/16 18:00 11/28/16 17:05 Proamatine - PO Not Given BID-MID [facility] Morphine Sulfate 1 mg 11/25/16 09:23 Morphine Injection - IVPUSH Q4H PRN PAIN Pantoprazole Sodium 40 mg 11/25/16 10:00 11/28/16 10:05 Protonix Packets For Oral Suspension - NGT Not Given DAILY [facility] Potassium Phos/Sodium Phos 1 packet 11/25/16 10:00 11/28/16 21:42 Phos-Nak Packet - PO Not Given BID [facility] Home Medications Medication Instructions Recorded Atorvastatin Ca [Lipitor] 80 mg PO HS 11/12/16 Esomeprazole Magnesium 40 mg PO DAILY 11/12/16 Ferrous Sulfate 325 mg PO DAILY 11/12/16 Hydrocortisone 20 mg PO DAILY 11/12/16 Levothyroxine [Synthroid -] 50 mcg PO DAILY 11/12/16 Magnesium Hydroxide [Milk of 400 mg PO DAILY 11/12/16 Magnesia] Midodrine HCl 5 mg PO DAILY 11/12/16 Sevelamer Carbonate [Renvela] 800 mg PO DAILY 11/12/16 Vitamin B Comp W-C [Nephro-Daily -] 1 tablet PO DAILY 11/12/16 PE: per the resident's note ASSESSMENT AND PLAN: This is a 76 yo M with PMH of hypotension, HLD, hypothyroidism, DM, COPD, ESRD, GERD, s/p tracheostomy, s/p gastrostomy presented to ER from [facility] for coffee ground emesis. # Septic shock On Dopamine being tapered ,likely source sacral decubitus ulcer with unstageable ulcers all over , wound culture positive for pseudomonas, ESBL , wound is not healing ,Gram Positive Bacteremia. ID on the case , on IV ertapenem and zosyn , on Diflucan, Added Tigacil as per ID, consulted to see the patient as well #Anoxic Encephalopathy ;unresponsive , poor prognosis # PEG tube as per GI # Acute Diarrhea, stool for cdiff, and stool culture likely due to abx treatment ;rectal tube; C diff toxin negative x 2 # Acute on chronic Anemia s/p by GIB, coffee ground emesis resolved, s/p 3u pRBC this admission , hemoglobin is 8.6 today. continue monitor h/h, epogen , IV PPI BID #ESRD on HD, as per Nephro # DM SS q6, sliding scale Poor prognosis; palliative care consult spoke with family family wishes full code for the yazdanism reasons , medical ethics consulted as well.
[2016-11-29] MEDS: INSULIN SLIDING SCALE (NOVOLOG) 1 VIAL SQ SCH ×5 (00:10→23:51)
[2016-11-29] MEDS: HYDROCORTISONE SOD SUCCINATE 100 MG/2 ML VIAL IVPB SCH ×4 (03:44→23:41)
[2016-11-29] MEDS: PIPERACILLIN/TAZOB 2.25 GM 50 ML IVPB SCH ×3 (03:45→17:49)
[2016-11-29] MEDS ORDERED: DOPAMINE 400 MG/D5W - 250 ML IVPB ONE (03:55)
[2016-11-29] MEDS: DOPAMINE 400 MG/D5W - 250 ML IVPB SCH ×2 (04:01→17:21)
[2016-11-29] MEDS ORDERED: TIGECYCLINE 50 MG in DEXTROSE 5%-WATER - 100 ML IVPB SCH (06:00)
[2016-11-29 06:23] LABS: MCH 31.2 pg (25.7-33.7); MCHC 33.6 g/dl (32.0-35.9); MEAN CELL VOLUME 92.8 fl (80-96); MEAN PLT VOLUME 10.8 fl (7.5-11.1); PLATELET COUNT 40 K/MM3 (134-434); RDW 24.3 % (11.9-15.9); WHITE BLOOD COUNT 4.1 K/mm3 (4.0-10.0)
[2016-11-29 06:56] LABS: CALCIUM 7.5 mg/dL (8.5-10.1); CREATININE 2.1 mg/dL (0.7-1.3); MAGNESIUM 1.9 mg/dL (1.8-2.4); PHOSPHOROUS 4.6 mg/dL (2.5-4.9)
[2016-11-29] MEDS: ALBUMIN HUMAN 25% 12.5 GM/50 ML VIAL IVPB SCH ×4 (07:15→08:30)
[2016-11-29 07:28] LABS: ANISOCYTOSIS 1+
[2016-11-29] MEDS ORDERED: EPOETIN ALFA 2,000 UNITS/1 ML VIAL IVPUSH ONE ×3 (07:45→15:52)
--- NOTE | 2016-11-29 11:35 | PN ---
Physical Exam: SUBJECTIVE: Patient seen and examined OBJECTIVE: Vital Signs Period Temp Pulse Resp BP Sys/Vang Pulse Ox Last 24 Hr 97 F-97.7 F 49-731 12-20 64-134/38-77 95-100 GENERAL: The patient is nonverbal, contracted, lying in bed, open his eyes HEAD: Normal with no signs of trauma. EYES: right eye operated, left eye 2 mm slugish reacting ENT: moist oral mucosa , nares patent NECK: tracheostomy present, attached to venti. LUNGS: decreased Breath sounds BL base , diffuse ronchi HEART: 1s2 normal, regular. ABDOMEN: Soft, nontender, g tube in situ, bag present around gtube, some fluid coming out from side of tube, lower EXTREMITIES: swollen, multiple ulcers present on b/l lower extremities. upper extremities swollen, pedal edema present MUSCULOSKELETAL: Contracted, bed sore on sacrum present. PSYCH: Unable to access SKIN: Warm, dry,multiple pressure ulcers (on feet, calves, back, gluteal region ) with Decubitus Ulcer Laboratory Results - last 24 hr 11/28/16 11/29/16 11/29/16 16:30 00:02 05:05 WBC 4.1 D RBC 2.65 L Hgb 8.3 L Hct 24.6 L MCV 92.8 MCHC 33.6 RDW 24.3 H Plt Count 40 L MPV 10.8 Neutrophils % 87.0 H Lymphocytes % 4.0 L D Monocytes % 4.0 D Band Neutrophils 5.0 Anisocytosis 1+ Macrocytosis 1+ Sodium Potassium Chloride Carbon Dioxide Anion Gap BUN Creatinine POC Glucometer [phone] Random Glucose Calcium Phosphorus Magnesium 11/29/16 06:00 WBC RBC Hgb Hct MCV MCHC RDW Plt Count MPV Neutrophils % Lymphocytes % Monocytes % Band Neutrophils Anisocytosis Macrocytosis Sodium 142 Potassium 3.8 Chloride 103 Carbon Dioxide 22 Anion Gap 17 H BUN 68 H Creatinine 2.1 H POC Glucometer Random Glucose 130 H Calcium 7.5 L Phosphorus 4.6 Magnesium 1.9 Active Medications Generic Name Dose Route Start Last Admin Trade Name Freq PRN Reason Stop Dose Admin Amino Acids 30 ml 11/25/16 08:00 11/28/16 16:33 Prosource No Carb Liquid Pkt PO Not Given BID@0800,1730 STEVEN Bacitracin 1 applic 11/25/16 10:00 11/28/16 12:17 Bacitracin - TP 1 applic DAILY STEVEN Administration Clotrimazole 1 applic 11/25/16 10:00 11/28/16 21:42 Lotrimin 1% Solution - TP 1 applic BID STEVEN Administration Collagenase 1 applic 11/25/16 10:00 11/28/16 12:18 Santyl - TP 1 applic DAILY STEVEN Administration Fluconazole 200 mg 11/25/16 10:00 11/28/16 10:05 Diflucan 40mg/Ml Suspension - PEG Not Given DAILY STEVEN Hydrocortisone Sodium Succinate 50 mg 11/25/16 05:30 11/29/16 10:04 Solu-Cortef - IVPB 50 mg Q6H-IV STEVEN Administration Dopamine HCl/Dextrose 250 mls @ 16.542 mls/hr 11/25/16 03:35 11/29/16 10:10 Dopamine 400 Mg/D5w - IVPB 0 mcg/kg/min TITR STEVEN Titration Protocol 5 MCG/KG/MIN Piperacillin Sod/Tazobactam Sod 50 mls @ 100 mls/hr 11/25/16 10:00 11/29/16 11: 14 Zosyn 2.25gm Ivpb (Pre-Docked) IVPB 100 mls/hr Q8H-IV STEVEN Administration Protocol Ertapenem 1 gm/ Sodium 50 mls @ 100 mls/hr 11/25/16 10:00 11/28/16 11:33 Chloride IVPB 100 mls/hr DAILY STEVEN Administration Protocol Pantoprazole Sodium 100 mls @ 200 mls/hr 11/29/16 10:00 11/28/16 12:17 Protonix 40mg Ivpb (Pre-Docked) IVPB 200 mls/hr DAILY ST[facility] Administration Tigecycline 50 mg/ Dextrose 100 mls @ 200 mls/hr 11/29/16 06:00 11/29/16 10:40 IVPB 200 mls/hr BID@0600,1800 STEVEN Administration Insulin Aspart 1 vial 11/25/16 06:00 11/29/16 06:27 Novolog Vial Sliding Scale - SQ 2 units Q6HPO STEVEN Administration Protocol Ketoconazole 1 applic 11/25/16 10:00 11/28/16 12:18 Nizoral 2% Cream - TP Not Given DAILY ST[facility]EN Midodrine 5 mg 11/28/16 18:00 11/28/16 17:05 Proamatine - PO Not Given BID-MID STEVEN Morphine Sulfate 1 mg 11/25/16 09:23 Morphine Injection - IVPUSH Q4H PRN PAIN Pantoprazole Sodium 40 mg 11/25/16 10:00 11/28/16 10:05 Protonix Packets For Oral Suspension - NGT Not Given DAILY [facility] Potassium Phos/Sodium Phos 1 packet 11/25/16 10:00 11/28/16 21:42 Phos-Nak Packet - PO Not Given BID [facility] ASSESSMENT/PLAN: This is a 76 yo M with PMH of hypotension, HLD, hypothyroidism, DM, COPD, ESRD, GERD, s/p tracheostomy, s/p gastrostomy presented to ER from [facility] for coffee ground emesis. Septic shock - improving - off pressor, keep MAP > 50 - on ertapenem, zosyn -ID on case -wound culture: pseudomonas, ESBL -strict I and O (anuric) - monitor vitals Tinea Corporis on clotrimazole, ketoconazoel and flucan Diarrhea -rectal tube -C diff toxin negative x 2 Hypothermia -john hugger PRN ESRD on HD -HD as per nephrology -nephro consult appreciated Acute on chronic Anemia -total 3u pRBC this admission h/o gi bleed -hgb stable -monitor h/h -epogen -continue IV PPI BID DIC platelet improving DM -BGM q6 -sliding scale Anoxic Encephalopathy -unresponsive -unlikely to have meaningful recovery -grave prognosis -palliative care consult spoke with family -Family wishes full code due to oriental orthodox reasons FEN avoid iv fluid repete lytes in morning continue tube feed. dispo: transfer to med surg Visit type - Emergency Visit Emergency Visit: Yes ED Registration Date: 11/12/16 Care time: The patient presented to the Emergency Department on the above date and was hospitalized for further evaluation of their emergent condition. - New Patient This patient is new to me today: No - Critical Care Critical Care patient: Yes Total Critical Care Time (in minutes): 45 Critical Care Statement: The care of this patient involved high complexity decision making to prevent further life threatening deterioration of the patient 's condition and/or to evalute & treat vital organ system(s) failure or risk of failure.
--- NOTE | 2016-11-29 11:49 | PN ---
Teaching Attending Note Name of Resident: Cl Torre ATTENDING PHYSICIAN STATEMENT I saw and evaluated the patient. I reviewed the resident's note and discussed the case with the resident. I agree with the resident's findings and plan as documented. SUBJECTIVE: Pt seen and examined in the ICU. On low dose dopamine gtt. Tolerated HD this AM. OBJECTIVE: Last Vital Signs Temp Pulse Resp BP Pulse Ox 97.4 F L 53 L 15 134/69 100 11/29/16 06:40 11/29/16 10:00 11/29/16 10:00 11/29/16 10:00 11/29/16 09:15 Intake & Output 11/26/16 11/27/16 11/28/16 11/29/16 23:59 23:59 23:59 23:59 Intake Total 1503.2 689.1 783 238 Output Total 0 0 100 Balance 1503.2 689.1 683 238 Weight 198 lb 197 lb 3.2 oz 200 lb 6.4 oz 199 lb 5 oz Gen: vented, poorly responsive Heart: RRR Lung: scattered rhonchi Abd: soft, nontender Ext: + edema, anasarca CBC, BMP 11/29/16 05:05 11/29/16 06:00 Active Medications Amino Acids (Prosource No Carb Liquid Pkt) 30 ml PO BID@0800,1730 [facility] Last Admin: 11/28/16 16:33 Dose: Not Given Bacitracin (Bacitracin -) 1 applic TP DAILY [facility] Last Admin: 11/28/16 12:17 Dose: 1 applic Clotrimazole (Lotrimin 1% Solution -) 1 applic TP BID [facility] Last Admin: 11/28/16 21:42 Dose: 1 applic Collagenase (Santyl -) 1 applic TP DAILY [facility] Last Admin: 11/28/16 12:18 Dose: 1 applic Fluconazole (Diflucan 40mg/Ml Suspension -) 200 mg PEG DAILY [facility] Last Admin: 11/28/16 10:05 Dose: Not Given Hydrocortisone Sodium Succinate (Solu-Cortef -) 50 mg IVPB Q6H-IV [facility] Last Admin: 11/29/16 10:04 Dose: 50 mg Dopamine HCl/Dextrose (Dopamine 400 Mg/D5w -) 250 mls @ 16.542 mls/hr IVPB TITR STEVEN; 5 MCG/KG/MIN PRN Reason: Protocol Last Titration: 11/29/16 10:10 Dose: 0 mcg/kg/min Piperacillin Sod/Tazobactam Sod (Zosyn 2.25gm Ivpb (Pre-Docked)) 50 mls @ 100 mls/hr IVPB Q8H-IV [facility] PRN Reason: Protocol Last Admin: 11/29/16 11:14 Dose: 100 mls/hr Ertapenem 1 gm/ Sodium (Chloride) 50 mls @ 100 mls/hr IVPB DAILY [facility] PRN Reason: Protocol Last Admin: 11/28/16 11:33 Dose: 100 mls/hr Pantoprazole Sodium (Protonix 40mg Ivpb (Pre-Docked)) 100 mls @ 200 mls/hr IVPB DAILY [facility] Last Admin: 11/28/16 12:17 Dose: 200 mls/hr Tigecycline 50 mg/ Dextrose 100 mls @ 200 mls/hr IVPB BID@0600,1800 [facility] Last Admin: 11/29/16 10:40 Dose: 200 mls/hr Insulin Aspart (Novolog Vial Sliding Scale -) 1 vial SQ Q6HPO [facility] PRN Reason: Protocol Last Admin: 11/29/16 06:27 Dose: 2 units Ketoconazole (Nizoral 2% Cream -) 1 applic TP DAILY [facility] Last Admin: 11/28/16 12:18 Dose: Not Given Midodrine (Proamatine -) 5 mg PO BID-MID [facility] Last Admin: 11/28/16 17:05 Dose: Not Given Morphine Sulfate (Morphine Injection -) 1 mg IVPUSH Q4H PRN PRN Reason: PAIN Pantoprazole Sodium (Protonix Packets For Oral Suspension -) 40 mg NGT DAILY [facility] Last Admin: 11/28/16 10:05 Dose: Not Given Potassium Phos/Sodium Phos (Phos-Nak Packet -) 1 packet PO BID [facility] Last Admin: 11/28/16 21:42 Dose: Not Given ASSESSMENT AND PLAN: Sacral Decubitus Ulcer Infection Gram Positive Bacteremia Septic Shock ESRD on HD Chronic Respiratory Failure Chronic Hypotension h/o CVA Anoxic Encephalopathy Anemia Thrombocytopenia - taper off pressors - resume midodrine - tolerate MAP >50 - continue antibiotics per ID - wound care - continue steroids - HD per renal - poor prognosis for any meaningful recovery, approaching medical futility, recommend palliative care - DVT/GI prophylaxis
[2016-11-29] MEDS: PANTOPRAZOLE SODIUM 100 ML IVPB SCH (12:00)
[2016-11-29] MEDS: COLLAGENASE CLOSTRIDIUM HIST. 30 GRAMS TUBE TP SCH (12:09)
[2016-11-29] MEDS: CLOTRIMAZOLE 1%TOPICAL SOLUTION 30 ML BOTTLE TP SCH ×2 (12:10→23:48)
[2016-11-29] MEDS: KETOCONAZOLE 2% CREAM - 60GM TUBE TP SCH (12:10)
[2016-11-29] MEDS: ERTAPENEM SODIUM 1 GM in SODIUM CHLORIDE 50 ML IVPB SCH (12:10)
[2016-11-29] MEDS: BACITRACIN 30 GM TUBE TOPICAL OINTMENT TP SCH (12:10)
--- NOTE | 2016-11-29 12:26 | PN ---
Physical Exam: SUBJECTIVE: Patient seen and examined Patient resting in bed, NAD, opening eyes spontaneously. 97 F. BP 112/62 on Dopamine @4. Very edematous. Loose light brown diarrhea in rectal tube. No bleeding. No hematemesis. Anuric. PEG still leaking. Feeds stopped. OBJECTIVE: Vital Signs Period Temp Pulse Resp BP Sys/Vang Pulse Ox Last 24 Hr 97 F-97.7 F 49-731 12-20 64-134/38-77 98-100 GENERAL: unresponsive, opens eyes. 3+ anasarca HEAD: Normal with no signs of trauma. EYES: sclera anicteric, conjunctiva clear. ENT: moist mucous membranes. NECK: supple. LUNGS: diffuse ronchi, trach, vent. HEART: Regular rate and rhythm, S1, S2 ABDOMEN: Soft, very edematous and because of it hard, globally reduced bowel sounds, feels hard because of edema (increased) Peg in place leaking, dermatitis around peg EXTREMITIES: 1+ pulses, warm, 3+ edema. b/l pressure ulcers on heels with black echar. clean dressing in place Sacrum: unstageable pressure ulcer with yellow echar, malodorous. NEUROLOGICAL: symmetrical face PSYCH: unable to assess SKIN: Warm, dry, tinea corporis diffusely on abdomen, chest, improving Laboratory Results - last 24 hr 11/28/16 11/29/16 11/29/16 16:30 00:02 05:05 WBC 4.1 D RBC 2.65 L Hgb 8.3 L Hct 24.6 L MCV 92.8 MCHC 33.6 RDW 24.3 H Plt Count 40 L MPV 10.8 Neutrophils % 87.0 H Lymphocytes % 4.0 L D Monocytes % 4.0 D Band Neutrophils 5.0 Anisocytosis 1+ Macrocytosis 1+ Sodium Potassium Chloride Carbon Dioxide Anion Gap BUN Creatinine POC Glucometer 148.27647 193.63832 Random Glucose Calcium Phosphorus Magnesium 11/29/16 06:00 WBC RBC Hgb Hct MCV MCHC RDW Plt Count MPV Neutrophils % Lymphocytes % Monocytes % Band Neutrophils Anisocytosis Macrocytosis Sodium 142 Potassium 3.8 Chloride 103 Carbon Dioxide 22 Anion Gap 17 H BUN 68 H Creatinine 2.1 H POC Glucometer Random Glucose 130 H Calcium 7.5 L Phosphorus 4.6 Magnesium 1.9 Active Medications Generic Name Dose Route Start Last Admin Trade Name Freq PRN Reason Stop Dose Admin Amino Acids 30 ml 11/25/16 08:00 11/28/16 16:33 Prosource No Carb Liquid Pkt PO Not Given BID@0800,1730 STEVEN Bacitracin 1 applic 11/25/16 10:00 11/29/16 12:10 Bacitracin - TP 1 applic DAILY STEVEN Administration Clotrimazole 1 applic 11/25/16 10:00 11/29/16 12:10 Lotrimin 1% Solution - TP 1 applic BID STEVEN Administration Collagenase 1 applic 11/25/16 10:00 11/29/16 12:09 Santyl - TP 1 applic DAILY STEVEN Administration Fluconazole 200 mg 11/25/16 10:00 11/28/16 10:05 Diflucan 40mg/Ml Suspension - PEG Not Given DAILY [facility] Hydrocortisone Sodium Succinate 50 mg 11/25/16 05:30 11/29/16 10:04 Solu-Cortef - IVPB 50 mg Q6H-IV STEVEN Administration Dopamine HCl/Dextrose 250 mls @ 16.542 mls/hr 11/25/16 03:35 11/29/16 10:10 Dopamine 400 Mg/D5w - IVPB 0 mcg/kg/min TITR STEVEN Titration Protocol 5 MCG/KG/MIN Piperacillin Sod/Tazobactam Sod 50 mls @ 100 mls/hr 11/25/16 10:00 11/29/16 11: 14 Zosyn 2.25gm Ivpb (Pre-Docked) IVPB 100 mls/hr Q8H-IV STEVEN Administration Protocol Ertapenem 1 gm/ Sodium 50 mls @ 100 mls/hr 11/25/16 10:00 11/29/16 12:10 Chloride IVPB 100 mls/hr DAILY STEVEN Administration Protocol Pantoprazole Sodium 100 mls @ 200 mls/hr 11/29/16 10:00 11/29/16 12:00 Protonix 40mg Ivpb (Pre-Docked) IVPB 200 mls/hr DAILY STEVEN Administration Tigecycline 50 mg/ Dextrose 100 mls @ 200 mls/hr 11/29/16 06:00 11/29/16 10:40 IVPB 200 mls/hr BID@0600,1800 STEVEN Administration Insulin Aspart 1 vial 11/25/16 06:00 11/29/16 12:09 Novolog Vial Sliding Scale - SQ 4 units Q6HPO STEVEN Administration Protocol Ketoconazole 1 applic 11/25/16 10:00 11/29/16 12:10 Nizoral 2% Cream - TP 1 applic DAILY STEVEN Administration Midodrine 5 mg 11/28/16 18:00 11/28/16 17:05 Proamatine - PO Not Given BID-MID STEVEN Morphine Sulfate 1 mg 11/25/16 09:23 Morphine Injection - IVPUSH Q4H PRN PAIN Pantoprazole Sodium 40 mg 11/25/16 10:00 11/28/16 10:05 Protonix Packets For Oral Suspension - NGT Not Given DAILY [facility] Potassium Phos/Sodium Phos 1 packet 11/25/16 10:00 11/28/16 21:42 Phos-Nak Packet - PO Not Given BID [facility] ASSESSMENT/PLAN: This is a 76 yo M with PMH of hypotension, HLD, hypothyroidism, DM, COPD, ESRD, GERD, s/p tracheostomy, s/p gastrostomy presented to ER from [facility] for coffee ground emesis. Septic shock -likley source sacral decubitus ulcer -unstageable ulcer -evaluated by wound care. -no need for debridement at this time, dressing changes. Not healing -Gram Positive Bacteremia. Repeat culture negative -Lactic Acidosis -ID consult appreciated -wound culture: pseudomonas, ESBL -ertapenem day 12 and zosyn d 14. tigecycline added for sputum culture -strict I and O (anuric) -DIC still present -wean dopamine PEG leaking air, tube feed contents -GI consult to adjust contacted -hold feeds, peg medicine Tinea Corporis -lotrimin TP Dermatitis -on penis, around peg -bacitracin ointment Diarrhea -likely due to abx treatment -rectal tube -C diff toxin negative x 2 Hypothermia -john hugger PRN ESRD on HD -hold HD while on pressors -nephro consult appreciated -HD today -albumin Chronic Hypotension -wean off dopamine -Map>65 -hydrocortisone 50 q6 Acute on chronic Anemia -aggravated by GIB -coffee ground emesis resolved -total 3u pRBC this admission -hgb stable -monitor h/h -epogen -IV PPI BID DIC -due to sepsis -fibrinogen trending up -trend coags -Heme consult apprecited -no active bleed -Platelets 41 DM -BGM q6 -sliding scale Anoxic Encephalopathy -unresponsive -unlikely to have meaningful recovery -grave prognosis -palliative care consult spoke with family -Family wishes full code due to latter day reasons FEN no IVF replete lytes prn tube feeds stopped Consulted medical ethics, will try to reach them today to expediate case review [phone] Dispo: ICU Problem List - Problems (1) GORDON (acute kidney injury) Code(s): N17.9 - ACUTE KIDNEY FAILURE, UNSPECIFIED (2) Anasarca Code(s): R60.1 - GENERALIZED EDEMA (3) Anemia Code(s): D64.9 - ANEMIA, UNSPECIFIED (4) CHF (congestive heart failure) Code(s): I50.9 - HEART FAILURE, UNSPECIFIED (5) CKD (chronic kidney disease) Code(s): N18.9 - CHRONIC KIDNEY DISEASE, UNSPECIFIED (6) Elevated INR Code(s): R79.1 - ABNORMAL COAGULATION PROFILE (7) Elevated brain natriuretic peptide (BNP) level Code(s): R79.89 - OTHER SPECIFIED ABNORMAL FINDINGS OF BLOOD CHEMISTRY (8) Fluid overload Code(s): E87.70 - FLUID OVERLOAD, UNSPECIFIED (9) History of CVA (cerebrovascular accident) Code(s): Z86.73 - PRSNL HX OF TIA (TIA), AND CEREB INFRC W/O RESID DEFICITS (10) Hypoalbuminemia Code(s): E88.09 - OTH DISORDERS OF PLASMA-PROTEIN METABOLISM, NEC (11) Hypotension Code(s): I95.9 - HYPOTENSION, UNSPECIFIED Qualifiers: Hypotension type: unspecified hypotension type Qualified Code(s): I95.9 - Hypotension, unspecified (12) Passes no urine Code(s): R34 - ANURIA AND OLIGURIA (13) Pressure ulcer Code(s): L89.90 - PRESSURE ULCER OF UNSPECIFIED SITE, UNSPECIFIED STAGE (14) Pressure ulcer of ankle Code(s): L89.509 - PRESSURE ULCER OF UNSPECIFIED ANKLE, UNSPECIFIED STAGE (15) Pressure ulcer of back Code(s): L89.109 - PRESSURE ULCER OF UNSP PART OF BACK, UNSPECIFIED STAGE (16) Sacral decubitus ulcer, stage IV Code(s): L89.154 - PRESSURE ULCER OF SACRAL REGION, STAGE 4 (17) Sepsis Code(s): A41.9 - SEPSIS, UNSPECIFIED ORGANISM Qualifiers: Sepsis type: sepsis due to unspecified organism Qualified Code(s): A41.9 - Sepsis, unspecified organism (18) Septic shock Code(s): A41.9 - SEPSIS, UNSPECIFIED ORGANISM R65.21 - SEVERE SEPSIS WITH SEPTIC SHOCK (19) Thrombocytopenia Code(s): D69.6 - THROMBOCYTOPENIA, UNSPECIFIED (20) Transaminitis Code(s): R74.0 - NONSPEC ELEV OF LEVELS OF TRANSAMNS & LACTIC ACID DEHYDRGNSE (21) Upper GI bleed Code(s): K92.2 - GASTROINTESTINAL HEMORRHAGE, UNSPECIFIED Visit type - Emergency Visit Emergency Visit: Yes ED Registration Date: 11/12/16 Care time: The patient presented to the Emergency Department on the above date and was hospitalized for further evaluation of their emergent condition. - New Patient This patient is new to me today: No - Critical Care Critical Care patient: Yes Total Critical Care Time (in minutes): 47 Critical Care Statement: The care of this patient involved high complexity decision making to prevent further life threatening deterioration of the patient 's condition and/or to evalute & treat vital organ system(s) failure or risk of failure. - Discharge Referral Referred to [facility] No
[2016-11-29] MEDS: MIDODRINE HCL 5 MG TABLET PO SCH ×2 (12:29→17:21)
[2016-11-29] MEDS: AMINO ACIDS/PROTEIN HYDROLYS 30 ML LIQUID.PKT PO SCH ×2 (12:41→17:48)
[2016-11-29] MEDS: BANATROL PLUS POWDER PACKET PEG SCH ×4 (12:41→23:58)
--- NOTE | 2016-11-29 12:46 | CONSULT ---
Consult Consult Specialty:: Plastic Surgery Reason for Consultation:: Multiple Pressure related injuries Hip/lower back. - History of Present Illness Chief Complaint: Unable to converse, H/O obtained from Dr Mattson, chart notes76 y/o man with h/o Anoxic brain injury, chronic hypotension , HLP, COPD , chronic resp failure s/p trach, DM , hypothyroidism and other medical problems , who was brought from a NH due to coffee ground emesis .He was found to be in septic shock. # s/p Septic shock: likely due the decub ulcer. Hypothermia recovered. ON IV ertapenem and zosyn continue. - ON SOLU CORTEF IV 25 mg bId continue. # Upper GI bleed : possible due to stress ulcer vs PUD on PPI per peg tub. # DIC: due to severe sepsis. monitor coags. will transfuse blood products as needed ( fibrinogen < 100 , Hb < 7 , PLt < 20 ). # s/p Acute Hypernatremia improved due to having free water in TF. # ESRD: cont HD. 3x per week, on the case, low potassium will not replete since patient is on dialysis. # Hyperglycemia . Cont SSI q 6hr . # Sinus bradycardia : with episodes of PAF. not a candidate for BB or AC at this point. 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: Yes: CVA Cardio/Vascular: Yes: Hyperlipdemia Pulmonary: Yes: COPD Gastrointestinal: Yes: GERD Renal/: Yes: Renal Failure, Hemodialysis Endocrine: Yes: Diabetes Mellitus, Hypothyroidism - Alcohol/Substance Use Hx Alcohol Use: No - Smoking History Smoking history: Never smoked - Social History Usual Living Arrangement: [facility] Home Medications - Allergies Allergies/Adverse Reactions: Allergies Allergy/AdvReac Type Severity Reaction Status Date / Time No Known Allergies Allergy Verified 11/12/16 02:07 - Home Medications Home Medications: Ambulatory Orders Atorvastatin Ca [Lipitor] 80 mg PO HS 11/12/16 Esomeprazole Magnesium 40 mg PO DAILY 11/12/16 Ferrous Sulfate 325 mg PO DAILY 11/12/16 Hydrocortisone 20 mg PO DAILY 11/12/16 Levothyroxine [Synthroid -] 50 mcg PO DAILY 11/12/16 Magnesium Hydroxide [Milk of Magnesia] 400 mg PO DAILY 11/12/16 Midodrine HCl 5 mg PO DAILY 11/12/16 Sevelamer Carbonate [Renvela] 800 mg PO DAILY 11/12/16 Vitamin B Comp W-C [Nephro-Daily -] 1 tablet PO DAILY 11/12/16 Family Disease History - Family Disease History Other Family History: non-contributory Physical Exam Vital Signs: Vital Signs Temperature 97.4 F L 11/29/16 06:40 Pulse Rate 53 L 11/29/16 10:00 Respiratory Rate 16 11/29/16 11:28 Blood Pressure 134/69 11/29/16 10:00 O2 Sat by Pulse Oximetry (%) 100 11/29/16 09:15 Labs: CBC, BMP 11/29/16 05:05 11/29/16 06:00 Assessment/Plan In my opinion patient condition is very poor, high risk for ANY SURGICAL care Selected EntriesMicrobiology 11/26/16 05:30 Sputum - Endotrachea Suction/Ventilator Gram Stain - Final 11/26/16 05:30 Sputum - Endotrachea Suction/Ventilator Sputum Culture - Final Serratia Marcescens Klebsiella Pneumoniae - Esbl Pseudomonas Aeruginosa 11/13/16 00:29 Hip - Left Gram Stain - Final 11/13/16 00:29 Hip - Left Wound Culture - Final Escherichia Coli Esbl Coffee Sommelier Pseudomonas Aeruginosa Morganella Morganii 11/12/16 07:00 Back Gram Stain - Final 11/12/16 07:00 Back Wound Culture - Final Acinetobacter Baumannii/Haemol Pseudomonas Aeruginosa Morganella Morganii 11/29/16 11/29/16 10:00 11:28 Pulse Rate 53 L Respiratory 16 Rate Blood Pressure 134/69 Following recommendations; 1. Medical management 2. Low Pressure mattress for Grade IV Pressure injury 3. Nutritional support 4 Continue conservation wound care including topical antibiotics after local necrosis is cleared. May even use Mechanical method of removal of large loose necrotic areas using normal saline. Once loose tissue is minimal use Collagenase ointment Please re-consult if his condition improves Thanks Dr Lopez Total time 30min
--- NOTE | 2016-11-29 13:23 | PN ---
Teaching Attending Note Name of Resident: Ros Dias ATTENDING PHYSICIAN STATEMENT I saw and evaluated the patient. I reviewed the resident's note and discussed the case with the resident. I agree with the resident's findings and plan as documented. Patient status no change, poor prognosis continues. Vital Signs Temperature 97.4 F L 11/29/16 06:40 Pulse Rate 53 L 11/29/16 10:00 Respiratory Rate 16 11/29/16 11:28 Blood Pressure 134/69 11/29/16 10:00 O2 Sat by Pulse Oximetry (%) 100 11/29/16 09:15 CBCD WBC 4.1 K/mm3 (4.0-10.0) D 11/29/16 05:05 RBC 2.65 M/mm3 (4.00-5.60) L 11/29/16 05:05 Hgb 8.3 GM/dL (11.7-16.9) L 11/29/16 05:05 Hct 24.6 % (35.4-49) L 11/29/16 05:05 MCV 92.8 fl (80-96) 11/29/16 05:05 MCHC 33.6 g/dl (32.0-35.9) 11/29/16 05:05 RDW 24.3 % (11.9-15.9) H 11/29/16 05:05 Plt Count 40 K/MM3 (134-434) L 11/29/16 05:05 MPV 10.8 fl (7.5-11.1) 11/29/16 05:05 CMP Sodium 142 mmol/L (136-145) 11/29/16 06:00 Potassium 3.8 mmol/L (3.5-5.1) 11/29/16 06:00 Chloride 103 mmol/L (98-107) 11/29/16 06:00 Carbon Dioxide 22 mmol/L (21-32) 11/29/16 06:00 Anion Gap 17 (8-16) H 11/29/16 06:00 BUN 68 mg/dL (7-18) H 11/29/16 06:00 Creatinine 2.1 mg/dL (0.7-1.3) H 11/29/16 06:00 Creat Clearance w eGFR 34.55 (>60) 11/28/16 05:20 Random Glucose 130 mg/dL (74-106) H 11/29/16 06:00 Calcium 7.5 mg/dL (8.5-10.1) L 11/29/16 06:00 Total Bilirubin 0.9 mg/dL (0.2-1.0) 11/28/16 05:20 AST 16 U/L (15-37) 11/28/16 05:20 ALT 13 U/L (12-78) 11/28/16 05:20 Alkaline Phosphatase 137 U/L (45-117) H 11/28/16 05:20 Total Protein 4.7 g/dl (6.4-8.2) L 11/28/16 05:20 Albumin 1.9 g/dl (3.4-5.0) L 11/28/16 05:20 CARDIAC ENZYMES Creatine Kinase 28 IU/L (39-308) L 11/12/16 01:41 Troponin I 0.08 ng/ml (0.00-0.05) H D 11/12/16 08:10 Current Medications Generic Name Dose Route Start Last Admin Trade Name Nirajq PRN Reason Stop Dose Admin Amino Acids 30 ml 11/25/16 08:00 11/29/16 12:41 Prosource No Carb Liquid Pkt PO Not Given BID@0800,1730 STEVEN Bacitracin 1 applic 11/25/16 10:00 11/29/16 12:10 Bacitracin - TP 1 applic DAILY STEVEN Administration Clotrimazole 1 applic 11/25/16 10:00 11/29/16 12:10 Lotrimin 1% Solution - TP 1 applic BID STEVEN Administration Collagenase 1 applic 11/25/16 10:00 11/29/16 12:09 Santyl - TP 1 applic DAILY STEVEN Administration Fluconazole 200 mg 11/25/16 10:00 11/28/16 10:05 Diflucan 40mg/Ml Suspension - PEG Not Given DAILY STEVEN Hydrocortisone Sodium Succinate 50 mg 11/25/16 05:30 11/29/16 10:04 Solu-Cortef - IVPB 50 mg Q6H-IV STEVEN Administration Dopamine HCl/Dextrose 250 mls @ 16.542 mls/hr 11/25/16 03:35 11/29/16 10:10 Dopamine 400 Mg/D5w - IVPB 0 mcg/kg/min TITR STEVEN Titration Protocol 5 MCG/KG/MIN Piperacillin Sod/Tazobactam Sod 50 mls @ 100 mls/hr 11/25/16 10:00 11/29/16 11: 14 Zosyn 2.25gm Ivpb (Pre-Docked) IVPB 100 mls/hr Q8H-IV STEVEN Administration Protocol Ertapenem 1 gm/ Sodium 50 mls @ 100 mls/hr 11/25/16 10:00 11/29/16 12:10 Chloride IVPB 100 mls/hr DAILY STEVEN Administration Protocol Pantoprazole Sodium 100 mls @ 200 mls/hr 11/29/16 10:00 11/29/16 12:00 Protonix 40mg Ivpb (Pre-Docked) IVPB 200 mls/hr DAILY STEVEN Administration Tigecycline 50 mg/ Dextrose 100 mls @ 200 mls/hr 11/29/16 06:00 11/29/16 10:40 IVPB 200 mls/hr BID@0600,1800 STEVEN Administration Insulin Aspart 1 vial 11/25/16 06:00 11/29/16 12:09 Novolog Vial Sliding Scale - SQ 4 units Q6HPO STEVEN Administration Protocol Ketoconazole 1 applic 11/25/16 10:00 11/29/16 12:10 Nizoral 2% Cream - TP 1 applic DAILY [facility] Administration Midodrine 5 mg 11/28/16 18:00 11/29/16 12:29 Proamatine - PO 5 mg BID-MID [facility] Administration Morphine Sulfate 1 mg 11/25/16 09:23 Morphine Injection - IVPUSH Q4H PRN PAIN Pantoprazole Sodium 40 mg 11/25/16 10:00 11/28/16 10:05 Protonix Packets For Oral Suspension - NGT Not Given DAILY [facility] Potassium Phos/Sodium Phos 1 packet 11/25/16 10:00 11/28/16 21:42 Phos-Nak Packet - PO Not Given BID [facility] Home Medications Medication Instructions Recorded Atorvastatin Ca [Lipitor] 80 mg PO HS 11/12/16 Esomeprazole Magnesium 40 mg PO DAILY 11/12/16 Ferrous Sulfate 325 mg PO DAILY 11/12/16 Hydrocortisone 20 mg PO DAILY 11/12/16 Levothyroxine [Synthroid -] 50 mcg PO DAILY 11/12/16 Magnesium Hydroxide [Milk of 400 mg PO DAILY 11/12/16 Magnesia] Midodrine HCl 5 mg PO DAILY 11/12/16 Sevelamer Carbonate [Renvela] 800 mg PO DAILY 11/12/16 Vitamin B Comp W-C [Nephro-Daily -] 1 tablet PO DAILY 11/12/16 PE: per resident's note Microbiology 11/26/16 05:30 Sputum - Endotrachea Suction/Ventilator Gram Stain - Final 11/26/16 05:30 Sputum - Endotrachea Suction/Ventilator Sputum Culture - Final Serratia Marcescens Klebsiella Pneumoniae - Esbl Pseudomonas Aeruginosa 11/19/16 18:00 Stool Clostridium difficile Antigen (ELIZABETH) - Final 11/19/16 18:00 Stool Clostridium difficile Toxin Assay - Final 11/15/16 08:35 Blood - Peripheral Venous Blood Culture - Final NO GROWTH AFTER 5 DAYS INCUBATION 11/15/16 08:30 Blood - Peripheral Venous Blood Culture - Final NO GROWTH AFTER 5 DAYS INCUBATION 11/12/16 08:10 Blood - Peripheral Venous Blood Culture - Final NO GROWTH AFTER 5 DAYS INCUBATION 11/12/16 07:00 Back Gram Stain - Final 11/12/16 07:00 Back Wound Culture - Final Acinetobacter Baumannii/Haemol Pseudomonas Aeruginosa Morganella Morganii 11/16/16 12:15 Stool Clostridium difficile Antigen (ELIZABETH) - Final 11/16/16 12:15 Stool Clostridium difficile Toxin Assay - Final 11/12/16 08:10 Blood - Peripheral Venous Blood Culture - Final Staph Capitis Subsp Ureolyticu 11/13/16 00:29 Hip - Left Gram Stain - Final 11/13/16 00:29 Hip - Left Wound Culture - Final Escherichia Coli Esbl [employer] Pseudomonas Aeruginosa Morganella Morganii ASSESSMENT AND PLAN: This is a 76 yo M with PMH of hypotension, HLD, hypothyroidism, DM, COPD, ESRD, GERD, s/p tracheostomy, s/p gastrostomy presented to ER from [facility] for coffee ground emesis. # Septic shock , Dopamine continues that is being tapered so that can be discontinued once BP is stable.likely source sacral decubitus ulcer unstageable and ulcers all over , wound culture positive for pseudomonas, ESBL , wound is not healing ,Gram Positive Bacteremia. ID on the case , on IV ertapenem and zosyn , on Diflucan, Tigacil as per ID, seen the patient and her recomendations are in the chart. #Anoxic Encephalopathy ;unresponsive , poor prognosis continues # PEG tube as per GI #Diarrhea continues , stool for cdiff, and stool culture likely due to abx treatment ;rectal tube; C diff toxin negative x 2 # Acute on chronic Anemia s/p by GIB, coffee ground emesis resolved, s/p 3u pRBC this admission , hemoglobin is 8.3 today. continue monitor h/h, epogen , IV PPI BID #ESRD on HD, as per Nephro # DM SS q6, sliding scale Poor prognosis; palliative care consult spoke with family family wishes full code for the adventism reasons , medical ethics consulted as well. Discussed with Chaplan, Pallaitive care .
--- NOTE | 2016-11-29 14:13 | PN ---
Progress Note, Physician History of Present Illness: Pt seen and examined at bedside. He remains in the ICU on pressors. He was dialyzed today. - Current Medication List Current Medications: Active Medications Amino Acids (Prosource No Carb Liquid Pkt) 30 ml PO BID@0800,1730 [facility] [place] Last Admin: 11/29/16 12:41 Dose: Not Given Bacitracin (Bacitracin -) 1 applic TP DAILY [facility] Last Admin: 11/29/16 12:10 Dose: 1 applic Clotrimazole (Lotrimin 1% Solution -) 1 applic TP BID [facility] [place] Last Admin: 11/29/16 12:10 Dose: 1 applic Collagenase (Santyl -) 1 applic TP DAILY [facility] [place] Last Admin: 11/29/16 12:09 Dose: 1 applic Fluconazole (Diflucan 40mg/Ml Suspension -) 200 mg PEG DAILY [facility] [place] Last Admin: 11/28/16 10:05 Dose: Not Given Hydrocortisone Sodium Succinate (Solu-Cortef -) 50 mg IVPB Q6H-IV [facility] [place] Last Admin: 11/29/16 10:04 Dose: 50 mg Dopamine HCl/Dextrose (Dopamine 400 Mg/D5w -) 250 mls @ 16.542 mls/hr IVPB TITR STEVEN; 5 MCG/KG/MIN PRN Reason: Protocol Last Titration: 11/29/16 10:10 Dose: 0 mcg/kg/min Piperacillin Sod/Tazobactam Sod (Zosyn 2.25gm Ivpb (Pre-Docked)) 50 mls @ 100 mls/hr IVPB Q8H-IV STEVEN PRN Reason: Protocol Last Admin: 11/29/16 11:14 Dose: 100 mls/hr Ertapenem 1 gm/ Sodium (Chloride) 50 mls @ 100 mls/hr IVPB DAILY [facility] [place] PRN Reason: Protocol Last Admin: 11/29/16 12:10 Dose: 100 mls/hr Pantoprazole Sodium (Protonix 40mg Ivpb (Pre-Docked)) 100 mls @ 200 mls/hr IVPB DAILY [facility] [place] Last Admin: 11/29/16 12:00 Dose: 200 mls/hr Tigecycline 50 mg/ Dextrose 100 mls @ 200 mls/hr IVPB BID@0600,1800 [facility] [place] Last Admin: 11/29/16 10:40 Dose: 200 mls/hr Insulin Aspart (Novolog Vial Sliding Scale -) 1 vial SQ Q6HPO [facility] [place] PRN Reason: Protocol Last Admin: 11/29/16 12:09 Dose: 4 units Ketoconazole (Nizoral 2% Cream -) 1 applic TP DAILY [facility] [place] Last Admin: 11/29/16 12:10 Dose: 1 applic Midodrine (Proamatine -) 5 mg PO BID-MID [facility] [place] Last Admin: 11/29/16 12:29 Dose: 5 mg Morphine Sulfate (Morphine Injection -) 1 mg IVPUSH Q4H PRN PRN Reason: PAIN Pantoprazole Sodium (Protonix Packets For Oral Suspension -) 40 mg NGT DAILY [facility] [place] Last Admin: 11/28/16 10:05 Dose: Not Given Potassium Phos/Sodium Phos (Phos-Nak Packet -) 1 packet PO BID [facility] [place] Last Admin: 11/28/16 21:42 Dose: Not Given - Objective Vital Signs: Vital Signs Temperature 97.4 F L 11/29/16 06:40 Pulse Rate 53 L 11/29/16 10:00 Respiratory Rate 15 11/29/16 13:58 Blood Pressure 134/69 11/29/16 10:00 O2 Sat by Pulse Oximetry (%) 100 11/29/16 09:15 Constitutional: Yes: Calm HENT: Yes: Atraumatic Neck: Yes: Other (trache) Cardiovascular: Yes: S1, S2 Respiratory: Yes: Mechanically Ventilated Genitourinary: Yes: Anuria, Incontinence Musculoskeletal: Yes: Muscle Weakness Edema: Yes Integumentary: Yes: Pressure Ulcer Neurological: Yes: Pre-Existing Deficit Labs: CBC, BMP 11/29/16 05:05 11/29/16 06:00 INR, PTT INR 1.68 (0.82-1.09) H 11/24/16 08:10 Fibrinogen 220.0 mg/dL (238-498) L 11/24/16 08:10 - ....Imaging Chest X-ray: Report Reviewed (progressive changes) Problem List - Problems (1) GORDON (acute kidney injury) Code(s): N17.9 - ACUTE KIDNEY FAILURE, UNSPECIFIED (2) Anasarca Code(s): R60.1 - GENERALIZED EDEMA (3) Anemia Code(s): D64.9 - ANEMIA, UNSPECIFIED (4) CHF (congestive heart failure) Code(s): I50.9 - HEART FAILURE, UNSPECIFIED (5) CKD (chronic kidney disease) Code(s): N18.9 - CHRONIC KIDNEY DISEASE, UNSPECIFIED (6) Fluid overload Code(s): E87.70 - FLUID OVERLOAD, UNSPECIFIED (7) History of CVA (cerebrovascular accident) Code(s): Z86.73 - PRSNL HX OF TIA (TIA), AND CEREB INFRC W/O RESID DEFICITS Assessment/Plan Current Medications Generic Name Dose Route Start Last Admin Trade Name Freq PRN Reason Stop Dose Admin Amino Acids 30 ml 11/25/16 08:00 11/29/16 12:41 Prosource No Carb Liquid Pkt PO Not Given BID@0800,1730 STEVEN Bacitracin 1 applic 11/25/16 10:00 11/29/16 12:10 Bacitracin - TP 1 applic DAILY STEVEN Administration Clotrimazole 1 applic 11/25/16 10:00 11/29/16 12:10 Lotrimin 1% Solution - TP 1 applic BID STEVEN Administration Collagenase 1 applic 11/25/16 10:00 11/29/16 12:09 Santyl - TP 1 applic DAILY STEVEN Administration Fluconazole 200 mg 11/25/16 10:00 11/28/16 10:05 Diflucan 40mg/Ml Suspension - PEG Not Given DAILY STEVEN Hydrocortisone Sodium Succinate 50 mg 11/25/16 05:30 11/29/16 10:04 Solu-Cortef - IVPB 50 mg Q6H-IV STEVEN Administration Dopamine HCl/Dextrose 250 mls @ 16.542 mls/hr 11/25/16 03:35 11/29/16 10:10 Dopamine 400 Mg/D5w - IVPB 0 mcg/kg/min TITR STEVEN Titration Protocol 5 MCG/KG/MIN Piperacillin Sod/Tazobactam Sod 50 mls @ 100 mls/hr 11/25/16 10:00 11/29/16 11: 14 Zosyn 2.25gm Ivpb (Pre-Docked) IVPB 100 mls/hr Q8H-IV STEVEN Administration Protocol Ertapenem 1 gm/ Sodium 50 mls @ 100 mls/hr 11/25/16 10:00 11/29/16 12:10 Chloride IVPB 100 mls/hr DAILY STEVEN Administration Protocol Pantoprazole Sodium 100 mls @ 200 mls/hr 11/29/16 10:00 11/29/16 12:00 Protonix 40mg Ivpb (Pre-Docked) IVPB 200 mls/hr DAILY STEVEN Administration Tigecycline 50 mg/ Dextrose 100 mls @ 200 mls/hr 11/29/16 06:00 11/29/16 10:40 IVPB 200 mls/hr BID@0600,1800 STEVEN Administration Insulin Aspart 1 vial 11/25/16 06:00 11/29/16 12:09 Novolog Vial Sliding Scale - SQ 4 units Q6HPO STEVEN Administration Protocol Ketoconazole 1 applic 11/25/16 10:00 11/29/16 12:10 Nizoral 2% Cream - TP 1 applic DAILY STEVEN Administration Midodrine 5 mg 11/28/16 18:00 11/29/16 12:29 Proamatine - PO 5 mg BID-MID STEVEN Administration Morphine Sulfate 1 mg 11/25/16 09:23 Morphine Injection - IVPUSH Q4H PRN PAIN Pantoprazole Sodium 40 mg 11/25/16 10:00 11/28/16 10:05 Protonix Packets For Oral Suspension - NGT Not Given DAILY STEVEN Potassium Phos/Sodium Phos 1 packet 11/25/16 10:00 11/28/16 21:42 Phos-Nak Packet - PO Not Given BID STEVEN Impression 1. ESRD 2. hypotension 3. chronic respiratory failure 4. sepsis 5. Anemia 6. GI bleed 7. CVA 8. DM 9. Hypothyroidism 10. pancytopenia Plan - pt tolerated HD today - it is difficult to UF volume secondary to hypotension - vent support per pulmonary - cont wound care - epogen for anemia - overall prognosis is poor - discussed with medical team Dr Mireles
--- NOTE | 2016-11-29 14:35 | PN ---
Progress Note (short form) - Note Progress Note: Ethics followup from 11/25/16 I spoke to Hospitalist today Re: goals of care for this patient. He is currently here with a Dx. of Past CVA, Septic shock, Anoxic encephalopathy,ESRD , Trach on a vent and multiple body ulcers. 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 It seems that comfort care would be the ideal goal with the current medical status and probable prognosis but that has to be the decision of the surrogates also and if not must be respected. If a formal meeting with family and treating staff can be arranged that would be an appropriate next step to further discussion and decision making.
--- NOTE | 2016-11-29 15:35 | PN ---
Progress Note, Physician History of Present Illness: continues to do poorly patient a little better today weaned off of pressors was dialysed today temp a little better still with poor prognosis - Current Medication List Current Medications: Active Medications Amino Acids (Prosource No Carb Liquid Pkt) 30 ml PO BID@0800,1730 [facility] Last Admin: 11/29/16 12:41 Dose: Not Given Bacitracin (Bacitracin -) 1 applic TP DAILY [facility] Last Admin: 11/29/16 12:10 Dose: 1 applic Clotrimazole (Lotrimin 1% Solution -) 1 applic TP BID [facility] Last Admin: 11/29/16 12:10 Dose: 1 applic Collagenase (Santyl -) 1 applic TP DAILY [facility] Last Admin: 11/29/16 12:09 Dose: 1 applic Fluconazole (Diflucan 40mg/Ml Suspension -) 200 mg PEG DAILY [facility] Last Admin: 11/28/16 10:05 Dose: Not Given Hydrocortisone Sodium Succinate (Solu-Cortef -) 50 mg IVPB Q6H-IV [facility] Last Admin: 11/29/16 10:04 Dose: 50 mg Dopamine HCl/Dextrose (Dopamine 400 Mg/D5w -) 250 mls @ 16.542 mls/hr IVPB TITR STEVEN; 5 MCG/KG/MIN PRN Reason: Protocol Last Titration: 11/29/16 10:10 Dose: 0 mcg/kg/min Piperacillin Sod/Tazobactam Sod (Zosyn 2.25gm Ivpb (Pre-Docked)) 50 mls @ 100 mls/hr IVPB Q8H-IV STEVEN PRN Reason: Protocol Last Admin: 11/29/16 11:14 Dose: 100 mls/hr Ertapenem 1 gm/ Sodium (Chloride) 50 mls @ 100 mls/hr IVPB DAILY [facility] PRN Reason: Protocol Last Admin: 11/29/16 12:10 Dose: 100 mls/hr Pantoprazole Sodium (Protonix 40mg Ivpb (Pre-Docked)) 100 mls @ 200 mls/hr IVPB DAILY [facility] Last Admin: 11/29/16 12:00 Dose: 200 mls/hr Tigecycline 50 mg/ Dextrose 100 mls @ 200 mls/hr IVPB BID@0600,1800 [facility] Last Admin: 11/29/16 10:40 Dose: 200 mls/hr Insulin Aspart (Novolog Vial Sliding Scale -) 1 vial SQ Q6HPO [facility] PRN Reason: Protocol Last Admin: 11/29/16 12:09 Dose: 4 units Ketoconazole (Nizoral 2% Cream -) 1 applic TP DAILY [facility] Last Admin: 11/29/16 12:10 Dose: 1 applic Midodrine (Proamatine -) 5 mg PO BID-MID [facility] Last Admin: 11/29/16 12:29 Dose: 5 mg Morphine Sulfate (Morphine Injection -) 1 mg IVPUSH Q4H PRN PRN Reason: PAIN Pantoprazole Sodium (Protonix Packets For Oral Suspension -) 40 mg NGT DAILY [facility] Last Admin: 11/28/16 10:05 Dose: Not Given Potassium Phos/Sodium Phos (Phos-Nak Packet -) 1 packet PO BID [facility] Last Admin: 11/28/16 21:42 Dose: Not Given - Objective Vital Signs: Vital Signs Temperature 98.1 F 11/29/16 12:00 Pulse Rate 53 L 11/29/16 14:00 Respiratory Rate 18 11/29/16 14:00 Blood Pressure 83/50 11/29/16 14:00 O2 Sat by Pulse Oximetry (%) 98 11/29/16 10:00 Constitutional: Yes: No Distress, Calm, Other Cardiovascular: Yes: Regular Rate and Rhythm Respiratory: Yes: Mechanically Ventilated, Poor Air Entry, Other (tracheostomy) Gastrointestinal: Yes: Distention, Hypoactive Bowel Sounds, Other (peg tube leaking still) Musculoskeletal: Yes: Other (ulcers pressure at multiple places) Extremities: Yes: Other (multiple pressure ulcer) Integumentary: Yes: Other (ring weom improving rash all over) Wound/Incision: Yes: Other (decubitus ulcer stage 3-4) Neurological: Yes: Other (opens eyes) Psychiatric: Yes: Other Labs: CBC, BMP 11/29/16 05:05 11/29/16 06:00 INR, PTT INR 1.68 (0.82-1.09) H 11/24/16 08:10 Fibrinogen 220.0 mg/dL (238-498) L 11/24/16 08:10 - ....Imaging Chest X-ray: Report Reviewed, Image Reviewed Assessment/Plan decubitus ulcer multiple pressure ulcer infected peg tube site septic shock lactic acidosis hypotension hypothermia esrd cva gram positive bacteremia rash plan continue current mgmt continue abx patients prognosis is poor continue maintaining body temperature await for gi to evaluate the patient once peg tube is adjusted then refeeding can occur cc 40 min
[2016-11-29] MEDS: NAPH,MB-DB/K PH,MBDB POWDER PACKET PO SCH ×3 (15:40→23:58)
[2016-11-29] MEDS: PANTOPRAZOLE SOD 40 MG SUSPENSION PACKET NGT SCH (15:40)
[2016-11-29] MEDS: FLUCONAZOLE 40 MG/ML SUSPENSION 35 ML BOTTLE PEG SCH (15:40)
[2016-11-29] MEDS ORDERED: morphine CARPU-JECT 2 MG/1 ML DISP.SYRIN IVPUSH PRN (15:52)
[2016-11-29] MEDS: TIGECYCLINE 50 MG in DEXTROSE 5%-WATER - 100 ML IVPB SCH (17:48)
[2016-11-29] MEDS ORDERED: PT OWN MED DRAWER 7, Y5N ONE ×2 (19:17→21:44)
--- NOTE | 2016-11-29 19:37 | PN ---
GI Progress Note Subjective: Patient clinically unchanged. Called to evaluate PEG leak. PEG with ostomy bag over it. Bag filled with bilious fluid The tissue around the PEG site appears necrotic - Objective Vital Signs: Vital Signs Temperature 92.2 F L 11/29/16 17:33 Pulse Rate 52 L 11/29/16 17:33 Respiratory Rate 20 11/29/16 18:22 Blood Pressure 92/48 11/29/16 17:33 O2 Sat by Pulse Oximetry (%) 98 11/29/16 10:00 Constitutional: Pallor, Thin HENT: Yes: Normocephalic Cardiovascular: Yes: Regular Rate and Rhythm Respiratory: Yes: CTA Bilaterally Gastrointestinal Inspection: Yes: Distention ...Auscultate: Yes: Hypoactive Bowel Sounds ...Palpate: Yes: Soft Labs: CBC, BMP 11/29/16 05:05 11/29/16 06:00 INR, PTT INR 1.68 (0.82-1.09) H 11/24/16 08:10 Fibrinogen 220.0 mg/dL (238-498) L 11/24/16 08:10 Assessment/Plan G tube site again evaluated. Bilious material in bag. The tissue around the tube appears necrotic and devitalized Recommend surgical evaluation If tube needs to be removed, would not be able to place new tube until the old site was debrided and fully healed Continue Clinimix for now
[2016-11-29] MEDS: AMINO ACIDS 4.25%/D5W 1,000 ML IV SCH (23:40)
[2016-11-30] MEDS: PIPERACILLIN/TAZOB 2.25 GM 50 ML IVPB SCH ×3 (01:09→17:08)
[2016-11-30] MEDS: HYDROCORTISONE SOD SUCCINATE 100 MG/2 ML VIAL IVPB SCH ×4 (04:17→21:10)
[2016-11-30] MEDS: BANATROL PLUS POWDER PACKET PEG SCH ×2 (06:58→17:03)
[2016-11-30] MEDS: INSULIN SLIDING SCALE (NOVOLOG) 1 VIAL SQ SCH ×3 (07:00→17:14)
[2016-11-30] MEDS: TIGECYCLINE 50 MG in DEXTROSE 5%-WATER - 100 ML IVPB SCH ×2 (07:01→17:08)
[2016-11-30 07:35] LABS: CALCIUM 7.6 mg/dL (8.5-10.1); CREATININE 1.7 mg/dL (0.7-1.3); MAGNESIUM 1.9 mg/dL (1.8-2.4); PHOSPHOROUS 3.7 mg/dL (2.5-4.9)
[2016-11-30 08:21] LABS: BASOPHIL 0.2 % (0-2.0); EOSINOPHIL 0.1 % (0-4.5); MCHC 33.4 g/dl (32.0-35.9); MEAN CELL VOLUME 92.8 fl (80-96); NEUTROPHILS 91.6 % (42.8-82.8); RDW 23.8 % (11.9-15.9); WHITE BLOOD COUNT 3.2 K/mm3 (4.0-10.0)
[2016-11-30 08:24] LABS: PLATELET COUNT 22 K/MM3 (134-434)
[2016-11-30] MEDS ORDERED: PT OWN MED DRAWER 7, Y5N ONE ×2 (09:05→16:52)
[2016-11-30] MEDS ORDERED: ERTAPENEM SODIUM 1 GM in SODIUM CHLORIDE 50 ML IVPB SCH (10:00)
[2016-11-30] MEDS ORDERED: PANTOPRAZOLE SOD 40 MG SUSPENSION PACKET NGT SCH (10:00)
[2016-11-30] MEDS: COLLAGENASE CLOSTRIDIUM HIST. 30 GRAMS TUBE TP SCH (10:00)
[2016-11-30] MEDS: PANTOPRAZOLE SODIUM 100 ML IVPB SCH (10:10)
--- NOTE | 2016-11-30 12:29 | PN ---
Progress Note, Physician History of Present Illness: Pt seen and examined at bedside. He is now in the medical ocampo. He remains on the vent. - Current Medication List Current Medications: Active Medications Amino Acids (Prosource No Carb Liquid Pkt) 30 ml PO BID@0800,1730 [facility] Last Admin: 11/29/16 17:48 Dose: Not Given Bacitracin (Bacitracin -) 1 applic TP DAILY STEVEN Clotrimazole (Lotrimin 1% Solution -) 1 applic TP BID [facility] Last Admin: 11/29/16 23:48 Dose: 1 applic Collagenase (Santyl -) 1 applic TP DAILY STEVEN Fluconazole (Diflucan 40mg/Ml Suspension -) 200 mg PEG DAILY [facility] Hydrocortisone Sodium Succinate (Solu-Cortef -) 50 mg IVPB Q6H-IV [facility] Last Admin: 11/30/16 09:19 Dose: 50 mg Dopamine HCl/Dextrose (Dopamine 400 Mg/D5w -) 250 mls @ 16.542 mls/hr IVPB TITR STEVEN; 5 MCG/KG/MIN PRN Reason: Protocol Last Admin: 11/29/16 17:21 Dose: Not Given Ertapenem 1 gm/ Sodium (Chloride) 50 mls @ 100 mls/hr IVPB DAILY [facility] PRN Reason: Protocol Last Admin: 11/30/16 10:09 Dose: 100 mls/hr Pantoprazole Sodium (Protonix 40mg Ivpb (Pre-Docked)) 100 mls @ 200 mls/hr IVPB DAILY [facility] Last Admin: 11/30/16 10:10 Dose: 200 mls/hr Tigecycline 50 mg/ Dextrose 100 mls @ 200 mls/hr IVPB BID@0600,1800 [facility] Last Admin: 11/30/16 07:01 Dose: 200 mls/hr Piperacillin Sod/Tazobactam Sod (Zosyn 2.25gm Ivpb (Pre-Docked)) 50 mls @ 100 mls/hr IVPB Q8H-IV [facility] PRN Reason: Protocol Last Admin: 11/30/16 10:10 Dose: 100 mls/hr Amino Acids (Clinimix -) 1,000 mls @ 30 mls/hr IV Q24H [facility] Last Admin: 11/29/16 23:40 Dose: 30 mls/hr Insulin Aspart (Novolog Vial Sliding Scale -) 1 vial SQ Q6HPO [facility] PRN Reason: Protocol Last Admin: 11/30/16 07:00 Dose: Not Given Ketoconazole (Nizoral 2% Cream -) 1 applic TP DAILY [facility] Midodrine (Proamatine -) 5 mg PO BID-MID [facility] Last Admin: 11/29/16 17:21 Dose: Not Given Morphine Sulfate (Morphine Injection -) 1 mg IVPUSH Q4H PRN PRN Reason: PAIN Potassium Phos/Sodium Phos (Phos-Nak Packet -) 1 packet PO BID [facility] Last Admin: 11/29/16 23:58 Dose: Not Given - Objective Vital Signs: Vital Signs Temperature 97.5 F L 11/30/16 06:00 Pulse Rate 68 11/30/16 06:00 Respiratory Rate 13 11/30/16 10:30 Blood Pressure 93/50 11/30/16 06:00 O2 Sat by Pulse Oximetry (%) 97 11/30/16 09:00 Constitutional: Yes: Calm Neck: Yes: Other (trache) Cardiovascular: Yes: S1, S2 Respiratory: Yes: Mechanically Ventilated Gastrointestinal: Yes: Other (peg tube) Genitourinary: Yes: Anuria Musculoskeletal: Yes: Muscle Weakness Edema: Yes Integumentary: Yes: Pressure Ulcer Neurological: Yes: Pre-Existing Deficit Labs: CBC, BMP 11/30/16 06:10 11/30/16 06:10 INR, PTT INR 1.68 (0.82-1.09) H 11/24/16 08:10 Fibrinogen 220.0 mg/dL (238-498) L 11/24/16 08:10 Problem List - Problems (1) GORDON (acute kidney injury) Code(s): N17.9 - ACUTE KIDNEY FAILURE, UNSPECIFIED (2) Anasarca Code(s): R60.1 - GENERALIZED EDEMA (3) Anemia Code(s): D64.9 - ANEMIA, UNSPECIFIED (4) CHF (congestive heart failure) Code(s): I50.9 - HEART FAILURE, UNSPECIFIED (5) CKD (chronic kidney disease) Code(s): N18.9 - CHRONIC KIDNEY DISEASE, UNSPECIFIED (6) Fluid overload Code(s): E87.70 - FLUID OVERLOAD, UNSPECIFIED (7) History of CVA (cerebrovascular accident) Code(s): Z86.73 - PRSNL HX OF TIA (TIA), AND CEREB INFRC W/O RESID DEFICITS Assessment/Plan Current Medications Generic Name Dose Route Start Last Admin Trade Name Armando PRN Reason Stop Dose Admin Amino Acids 30 ml 11/29/16 17:30 11/29/16 17:48 Prosource No Carb Liquid Pkt PO Not Given BID@0800,1730 [facility] Bacitracin 1 applic 11/30/16 10:00 Bacitracin - TP DAILY [facility] Clotrimazole 1 applic 11/29/16 22:00 11/29/16 23:48 Lotrimin 1% Solution - TP 1 applic BID STEVEN Administration Collagenase 1 applic 11/30/16 10:00 Santyl - TP DAILY STEVEN Fluconazole 200 mg 11/30/16 10:00 Diflucan 40mg/Ml Suspension - PEG DAILY [facility] Hydrocortisone Sodium Succinate 50 mg 11/29/16 21:00 11/30/16 09:19 Solu-Cortef - IVPB 50 mg Q6H-IV [facility] Administration Dopamine HCl/Dextrose 250 mls @ 16.542 mls/hr 11/29/16 15:52 11/29/16 17:21 Dopamine 400 Mg/D5w - IVPB Not Given TITR STEVEN Protocol 5 MCG/KG/MIN Ertapenem 1 gm/ Sodium 50 mls @ 100 mls/hr 11/30/16 10:00 11/30/16 10:09 Chloride IVPB 100 mls/hr DAILY STEVEN Administration Protocol Pantoprazole Sodium 100 mls @ 200 mls/hr 11/30/16 10:00 11/30/16 10:10 Protonix 40mg Ivpb (Pre-Docked) IVPB 200 mls/hr DAILY [facility] Administration Tigecycline 50 mg/ Dextrose 100 mls @ 200 mls/hr 11/29/16 18:00 11/30/16 07:01 IVPB 200 mls/hr BID@0600,1800 [facility] Administration Piperacillin Sod/Tazobactam Sod 50 mls @ 100 mls/hr 11/29/16 18:00 11/30/16 10: 10 Zosyn 2.25gm Ivpb (Pre-Docked) IVPB 100 mls/hr Q8H-IV [facility] Administration Protocol Amino Acids 1,000 mls @ 30 mls/hr 11/29/16 19:00 11/29/16 23:40 Clinimix - IV 30 mls/hr Q24H [facility] Administration Insulin Aspart 1 vial 11/29/16 18:00 11/30/16 07:00 Novolog Vial Sliding Scale - SQ Not Given Q6HPO [facility] Protocol Ketoconazole 1 applic 11/30/16 10:00 Nizoral 2% Cream - TP DAILY [facility] Midodrine 5 mg 11/29/16 18:00 11/29/16 17:21 Proamatine - PO Not Given BID-MID [facility] Morphine Sulfate 1 mg 11/29/16 15:52 Morphine Injection - IVPUSH Q4H PRN PAIN Potassium Phos/Sodium Phos 1 packet 11/29/16 22:00 11/29/16 23:58 Phos-Nak Packet - PO Not Given BID [facility] Impression 1. ESRD 2. hypotension 3. chronic respiratory failure 4. sepsis 5. Anemia 6. GI bleed 7. CVA 8. DM 9. Hypothyroidism 10. pancytopenia Plan - HD tomorrow - clinimix while NPO, pt was hypoglycemic yesterday - GI follow up for PEG - epogen for anemia - vent support - prognosis is poor Dr Mireles
--- NOTE | 2016-11-30 14:11 | PN ---
Physical Exam: SUBJECTIVE: Patient seen and examined Patient resting in bed, NAD, opening eyes spontaneously. 97.5 F on john hugger. BP 93/50. Very edematous. Loose light brown diarrhea in rectal tube. No bleeding. No hematemesis. Anuric. PEG still leaking. S/p HD yesterday - 1L OBJECTIVE: Vital Signs Period Temp Pulse Resp BP Sys/Vang Pulse Ox Last 24 Hr 92.2 F-97.5 F 52-83 12-20 79-106/48-66 96-97 GENERAL: unresponsive, opens eyes. 3+ anasarca HEAD: Normal with no signs of trauma. EYES: sclera anicteric, conjunctiva clear. ENT: moist mucous membranes. NECK: supple. LUNGS: diffuse ronchi, trach, vent. HEART: Regular rate and rhythm, S1, S2 ABDOMEN: Soft, very edematous and because of it hard, globally reduced bowel sounds, feels hard because of edema. Peg in place leaking, necrotic tissue around peg EXTREMITIES: 1+ pulses, warm, 3+ edema. b/l pressure ulcers on heels with black echar. clean dressing in place Sacrum: unstageable pressure ulcer with yellow echar, malodorous. NEUROLOGICAL: symmetrical face PSYCH: unable to assess SKIN: Warm, dry, tinea corporis diffusely on abdomen, chest, improving Laboratory Results - last 24 hr 11/29/16 11/29/16 11/29/16 05:51 12:00 17:04 WBC RBC Hgb Hct MCV MCHC RDW Plt Count MPV Neutrophils % Lymphocytes % Monocytes % Eosinophils % Basophils % Sodium Potassium Chloride Carbon Dioxide Anion Gap BUN Creatinine POC Glucometer [phone] 83 Random Glucose Calcium Phosphorus Magnesium Albumin 11/29/16 11/30/16 11/30/16 23:50 06:10 06:10 WBC 3.2 L RBC 2.27 L Hgb 7.0 L D Hct 21.1 L MCV 92.8 MCHC 33.4 RDW 23.8 H Plt Count 22 L* D MPV 10.0 Neutrophils % 91.6 H Lymphocytes % 6.4 L D Monocytes % 1.7 L Eosinophils % 0.1 D Basophils % 0.2 Sodium 142 Potassium 3.5 Chloride 102 Carbon Dioxide 25 Anion Gap 15 BUN 50 H D Creatinine 1.7 H POC Glucometer 85 Random Glucose 101 D Calcium 7.6 L Phosphorus 3.7 Magnesium 1.9 Albumin 2.0 L 11/30/16 06:59 WBC RBC Hgb Hct MCV MCHC RDW Plt Count MPV Neutrophils % Lymphocytes % Monocytes % Eosinophils % Basophils % Sodium Potassium Chloride Carbon Dioxide Anion Gap BUN Creatinine POC Glucometer 115 Random Glucose Calcium Phosphorus Magnesium Albumin Active Medications Generic Name Dose Route Start Last Admin Trade Name Freq PRN Reason Stop Dose Admin Albumin Human 12.5 gm 12/01/16 12:45 Albumin Human 25% IVPB Q30M [facility] Amino Acids 30 ml 11/29/16 17:30 11/29/16 17:48 Prosource No Carb Liquid Pkt PO Not Given BID@0800,1730 [facility] Bacitracin 1 applic 11/30/16 10:00 Bacitracin - TP DAILY [facility] Clotrimazole 1 applic 11/29/16 22:00 11/29/16 23:48 Lotrimin 1% Solution - TP 1 applic BID [facility] Administration Collagenase 1 applic 11/30/16 10:00 Santyl - TP DAILY [facility] Epoetin Rigoberto 8,000 units 12/01/16 12:32 Epogen - IVPUSH 12/01/16 12:33 ONCE ONE Fluconazole 200 mg 11/30/16 10:00 Diflucan 40mg/Ml Suspension - PEG DAILY [facility] Hydrocortisone Sodium Succinate 50 mg 11/29/16 21:00 11/30/16 09:19 Solu-Cortef - IVPB 50 mg Q6H-IV [facility] Administration Dopamine HCl/Dextrose 250 mls @ 16.542 mls/hr 11/29/16 15:52 11/29/16 17:21 Dopamine 400 Mg/D5w - IVPB Not Given TITR STEVEN Protocol 5 MCG/KG/MIN Ertapenem 1 gm/ Sodium 50 mls @ 100 mls/hr 11/30/16 10:00 11/30/16 10:09 Chloride IVPB 100 mls/hr DAILY [facility]EVEN Administration Protocol Pantoprazole Sodium 100 mls @ 200 mls/hr 11/30/16 10:00 11/30/16 10:10 Protonix 40mg Ivpb (Pre-Docked) IVPB 200 mls/hr DAILY [facility] Administration Tigecycline 50 mg/ Dextrose 100 mls @ 200 mls/hr 11/29/16 18:00 11/30/16 07:01 IVPB 200 mls/hr BID@0600,1800 [facility] Administration Piperacillin Sod/Tazobactam Sod 50 mls @ 100 mls/hr 11/29/16 18:00 11/30/16 10: 10 Zosyn 2.25gm Ivpb (Pre-Docked) IVPB 100 mls/hr Q8H-IV [facility] Administration Protocol Amino Acids 1,000 mls @ 30 mls/hr 11/29/16 19:00 11/29/16 23:40 Clinimix - IV 30 mls/hr Q24H [facility] Administration Insulin Aspart 1 vial 11/29/16 18:00 11/30/16 07:00 Novolog Vial Sliding Scale - SQ Not Given Q6HPO [facility] Protocol Ketoconazole 1 applic 11/30/16 10:00 Nizoral 2% Cream - TP DAILY [facility] Midodrine 5 mg 11/29/16 18:00 11/29/16 17:21 Proamatine - PO Not Given BID-MID [facility] Morphine Sulfate 1 mg 11/29/16 15:52 Morphine Injection - IVPUSH Q4H PRN PAIN Potassium Phos/Sodium Phos 1 packet 11/29/16 22:00 11/29/16 23:58 Phos-Nak Packet - PO Not Given BID [facility] ASSESSMENT/PLAN: This is a 76 yo M with PMH of hypotension, HLD, hypothyroidism, DM, COPD, ESRD, GERD, s/p tracheostomy, s/p gastrostomy presented to ER from [facility] for coffee ground emesis. Septic shock -likley source sacral decubitus ulcer -unstageable ulcer -evaluated by wound care. -no need for debridement at this time, dressing changes. Not healing -Gram Positive Bacteremia. Repeat culture negative -Lactic Acidosis -ID consult appreciated -wound culture: pseudomonas, ESBL -ertapenem and zosyn. tigecycline added for sputum culture -strict I and O (anuric) -DIC still present PEG leaking air, tube feed contents -GI consult: peg to be taken out by surgery -nothing per peg. -clinamix Tinea Corporis -lotrimin TP Dermatitis -on penis, around peg -bacitracin ointment Diarrhea -likely due to abx treatment -rectal tube -C diff toxin negative x 2 Hypothermia -john hugger PRN ESRD on HD -nephro consult appreciated -HD yesterday -albumin Chronic Hypotension -hydrocortisone 50 q6 Acute on chronic Anemia -aggravated by GIB -coffee ground emesis resolved -total 3u pRBC this admission -hgb stable -monitor h/h -epogen -IV PPI BID DIC -due to sepsis -fibrinogen trending up -trend coags -Heme consult apprecited -no active bleed -hgb 7 -Platelets 77 DM -BGM q6 -sliding scale Anoxic Encephalopathy -unresponsive -unlikely to have meaningful recovery -grave prognosis -palliative care consult spoke with family -Family wishes full code due to scientologist reasons FEN no IVF replete lytes prn osmolite Consulted medical ethics [phone] Dispo: 5s Problem List - Problems (1) GORDON (acute kidney injury) Code(s): N17.9 - ACUTE KIDNEY FAILURE, UNSPECIFIED (2) Anasarca Code(s): R60.1 - GENERALIZED EDEMA (3) Anemia Code(s): D64.9 - ANEMIA, UNSPECIFIED (4) CHF (congestive heart failure) Code(s): I50.9 - HEART FAILURE, UNSPECIFIED (5) CKD (chronic kidney disease) Code(s): N18.9 - CHRONIC KIDNEY DISEASE, UNSPECIFIED (6) Elevated INR Code(s): R79.1 - ABNORMAL COAGULATION PROFILE (7) Elevated brain natriuretic peptide (BNP) level Code(s): R79.89 - OTHER SPECIFIED ABNORMAL FINDINGS OF BLOOD CHEMISTRY (8) Fluid overload Code(s): E87.70 - FLUID OVERLOAD, UNSPECIFIED (9) History of CVA (cerebrovascular accident) Code(s): Z86.73 - PRSNL HX OF TIA (TIA), AND CEREB INFRC W/O RESID DEFICITS (10) Hypoalbuminemia Code(s): E88.09 - OTH DISORDERS OF PLASMA-PROTEIN METABOLISM, NEC (11) Hypotension Code(s): I95.9 - HYPOTENSION, UNSPECIFIED Qualifiers: Hypotension type: unspecified hypotension type Qualified Code(s): I95.9 - Hypotension, unspecified (12) Passes no urine Code(s): R34 - ANURIA AND OLIGURIA (13) Pressure ulcer Code(s): L89.90 - PRESSURE ULCER OF UNSPECIFIED SITE, UNSPECIFIED STAGE (14) Pressure ulcer of ankle Code(s): L89.509 - PRESSURE ULCER OF UNSPECIFIED ANKLE, UNSPECIFIED STAGE (15) Pressure ulcer of back Code(s): L89.109 - PRESSURE ULCER OF UNSP PART OF BACK, UNSPECIFIED STAGE (16) Sacral decubitus ulcer, stage IV Code(s): L89.154 - PRESSURE ULCER OF SACRAL REGION, STAGE 4 (17) Sepsis Code(s): A41.9 - SEPSIS, UNSPECIFIED ORGANISM Qualifiers: Sepsis type: sepsis due to unspecified organism Qualified Code(s): A41.9 - Sepsis, unspecified organism (18) Septic shock Code(s): A41.9 - SEPSIS, UNSPECIFIED ORGANISM R65.21 - SEVERE SEPSIS WITH SEPTIC SHOCK (19) Thrombocytopenia Code(s): D69.6 - THROMBOCYTOPENIA, UNSPECIFIED (20) Transaminitis Code(s): R74.0 - NONSPEC ELEV OF LEVELS OF TRANSAMNS & LACTIC ACID DEHYDRGNSE (21) Upper GI bleed Code(s): K92.2 - GASTROINTESTINAL HEMORRHAGE, UNSPECIFIED Visit type - Emergency Visit Emergency Visit: Yes ED Registration Date: 11/12/16 Care time: The patient presented to the Emergency Department on the above date and was hospitalized for further evaluation of their emergent condition. - New Patient This patient is new to me today: No - Critical Care Critical Care patient: No - Discharge Referral Referred to [facility] Med P.C.: No
--- NOTE | 2016-11-30 15:20 | PN ---
Progress Note (short form) - Note Progress Note: PULMONARY Gen: vented, poorly responsive Heart: RRR Lung: scattered rhonchi Abd: soft, nontender Ext: + edema, anasarca Sacral Decubitus Ulcer Infection Gram Positive Bacteremia Septic Shock ESRD on HD Chronic Respiratory Failure Chronic Hypotension h/o CVA Anoxic Encephalopathy Anemia Thrombocytopenia - taper off pressors - resume midodrine - tolerate MAP >50 - continue antibiotics per ID - wound care - continue steroids - HD per renal - poor prognosis for any meaningful recovery, approaching medical futility, recommend palliative care - DVT/GI prophylaxis Tre MARINA MD
--- NOTE | 2016-11-30 16:12 | PN ---
Progress Note, Physician History of Present Illness: no significant changes patient continues to be status quo with family wanting everything to be done - Current Medication List Current Medications: Active Medications Albumin Human (Albumin Human 25%) 12.5 gm IVPB Q30M [facility] Amino Acids (Prosource No Carb Liquid Pkt) 30 ml PO BID@0800,1730 [facility] Last Admin: 11/29/16 17:48 Dose: Not Given Bacitracin (Bacitracin -) 1 applic TP DAILY [facility] Clotrimazole (Lotrimin 1% Solution -) 1 applic TP BID [facility] Last Admin: 11/29/16 23:48 Dose: 1 applic Collagenase (Santyl -) 1 applic TP DAILY [facility]EVEN Epoetin Rigoberto (Epogen -) 8,000 units IVPUSH ONCE ONE Stop: 12/01/16 12:33 Fluconazole (Diflucan 40mg/Ml Suspension -) 200 mg PEG DAILY [facility] Hydrocortisone Sodium Succinate (Solu-Cortef -) 50 mg IVPB Q6H-IV [facility] Last Admin: 11/30/16 09:19 Dose: 50 mg Dopamine HCl/Dextrose (Dopamine 400 Mg/D5w -) 250 mls @ 16.542 mls/hr IVPB TITR STEVEN; 5 MCG/KG/MIN PRN Reason: Protocol Last Admin: 11/29/16 17:21 Dose: Not Given Ertapenem 1 gm/ Sodium (Chloride) 50 mls @ 100 mls/hr IVPB DAILY [facility] PRN Reason: Protocol Last Admin: 11/30/16 10:09 Dose: 100 mls/hr Pantoprazole Sodium (Protonix 40mg Ivpb (Pre-Docked)) 100 mls @ 200 mls/hr IVPB DAILY [facility] Last Admin: 11/30/16 10:10 Dose: 200 mls/hr Tigecycline 50 mg/ Dextrose 100 mls @ 200 mls/hr IVPB BID@0600,1800 [facility] Last Admin: 11/30/16 07:01 Dose: 200 mls/hr Piperacillin Sod/Tazobactam Sod (Zosyn 2.25gm Ivpb (Pre-Docked)) 50 mls @ 100 mls/hr IVPB Q8H-IV [facility] PRN Reason: Protocol Last Admin: 11/30/16 10:10 Dose: 100 mls/hr Amino Acids (Clinimix -) 1,000 mls @ 30 mls/hr IV Q24H [facility] Last Admin: 11/29/16 23:40 Dose: 30 mls/hr Insulin Aspart (Novolog Vial Sliding Scale -) 1 vial SQ Q6HPO [facility] PRN Reason: Protocol Last Admin: 11/30/16 07:00 Dose: Not Given Ketoconazole (Nizoral 2% Cream -) 1 applic TP DAILY [facility] Midodrine (Proamatine -) 5 mg PO BID-MID [facility] Last Admin: 11/29/16 17:21 Dose: Not Given Morphine Sulfate (Morphine Injection -) 1 mg IVPUSH Q4H PRN PRN Reason: PAIN Potassium Phos/Sodium Phos (Phos-Nak Packet -) 1 packet PO BID [facility] Last Admin: 11/29/16 23:58 Dose: Not Given - Objective Vital Signs: Vital Signs Temperature 98.4 F 11/30/16 14:56 Pulse Rate 80 11/30/16 14:56 Respiratory Rate 13 11/30/16 14:56 Blood Pressure 98/57 11/30/16 14:56 O2 Sat by Pulse Oximetry (%) 97 11/30/16 09:00 Constitutional: Yes: Calm, Other Cardiovascular: Yes: Regular Rate and Rhythm Respiratory: Yes: Mechanically Ventilated, Other (trach) Gastrointestinal: Yes: Distention, Other (peg tube leaking) Musculoskeletal: Yes: Other Extremities: Yes: Other Integumentary: Yes: Other (multiple ulcers on the body) Wound/Incision: Yes: Other (decubitus ulcer) Neurological: Yes: Other Labs: CBC, BMP 11/30/16 06:10 11/30/16 06:10 INR, PTT INR 1.68 (0.82-1.09) H 11/24/16 08:10 Fibrinogen 220.0 mg/dL (238-498) L 11/24/16 08:10 Assessment/Plan decubitus ulcer multiple pressure ulcer infected peg tube site septic shock lactic acidosis hypotension hypothermia esrd cva gram positive bacteremia rash plan continue current mgmt continue abx will stop ertapenam patients prognosis is poor continue maintaining body temperature await for gi to evaluate the patient once peg tube is adjusted then refeeding can occur
[2016-11-30] MEDS: AMINO ACIDS/PROTEIN HYDROLYS 30 ML LIQUID.PKT PO SCH ×2 (17:02→18:51)
[2016-11-30] MEDS: FLUCONAZOLE 40 MG/ML SUSPENSION 35 ML BOTTLE PEG SCH (17:02)
[2016-11-30] MEDS: NAPH,MB-DB/K PH,MBDB POWDER PACKET PO SCH (17:02)
[2016-11-30] MEDS: MIDODRINE HCL 5 MG TABLET PO SCH ×2 (17:03→18:51)
[2016-11-30] MEDS: DOPAMINE 400 MG/D5W - 250 ML IVPB SCH (17:03)
[2016-11-30] MEDS: BACITRACIN 30 GM TUBE TOPICAL OINTMENT TP SCH (17:12)
[2016-11-30] MEDS: CLOTRIMAZOLE 1%TOPICAL SOLUTION 30 ML BOTTLE TP SCH (17:12)
[2016-11-30] MEDS: KETOCONAZOLE 2% CREAM - 60GM TUBE TP SCH (17:13)
--- NOTE | 2016-11-30 17:59 | PN ---
Teaching Attending Note Name of Resident: Ros Dias ATTENDING PHYSICIAN STATEMENT I saw and evaluated the patient. I reviewed the resident's note and discussed the case with the resident. I agree with the resident's findings and plan as documented. SUBJECTIVE:unable to obtain hx OBJECTIVE: NAD , not responsive, opens eyes Pupils, round L > R . no facial droop , MMM, trach/vent. Lungs: b/l rales Ext : 3+ pitting edema over legs and arms. black scabs on multiple places on feet. Abd: soft, NT, ND , NL BS , 3+ pitting hard edema Skin:wounds were just changed , not examined ASSESSMENT AND PLAN: 76 y/o man with h/o Anoxic brain injury, chronic hypotension , HLP, COPD , chronic resp failure s/p trach, DM , hypothyroidism and other medical problems , who was brought from a NH due to coffee ground emesis .He was found to be in septic shock. 1-Septic shock: likely source is the decub ulcer. - Cont zosyn . off ertapenem today - cont steroid support and midodrine 2- Upper GI bleed : resolved. ? stress ulcer, VS PUD - Po ppi 3- DIC: due to severe sepsis. blood count 4- dysfunctional peg with necrotic tissue around site. appreciate GI recs will as Sx to evaluate Clnimix for now 5- ESRD: - cont HD. 6- Hyperglycemia . was hypoglycemic . monitor on clinimix 7- Sinus bradycardia : with episodes of PAF. - not a candidate for BB or AC at this point Dispo : OC
--- NOTE | 2016-11-30 19:07 | PN ---
Progress Note (short form) - Note Progress Note: General Surgery: Asked to evaluate the pt for necrotic PEG site. Dressing removed and there is no excoriation to the skin. There was an ostomy bag around the PEG tube which is draining bile. No excoriation to the skin, there are a few minor skin tears further away from the PEG and one skin tear approx 1cm x 1cm to the left of the tube insertion site. The tube is draining bile and the osotomy wafer was saturated with bile. I placed the PEG to gamez bag(gravity drainage) and placed gauze dressing under the skin/abd and placed the tube on traction because it was leaking around the tubing. A/P: the patient is a 76 yo male with multiple medical problems According to earlier notes the PEG was placed earlier by the GI service at [place] No excoriation/redness to skin Placed PEG to gravity GI follow up regarding changing of the tube, it appears to be leaking around the tubing. D/w Dr. Armenta
[2016-11-30] MEDS: AMINO ACIDS 4.25%/D5W 1,000 ML IV SCH (19:27)
[2016-12-01] MEDS: CLOTRIMAZOLE 1%TOPICAL SOLUTION 30 ML BOTTLE TP SCH ×3 (01:30→22:52)
[2016-12-01] MEDS: INSULIN SLIDING SCALE (NOVOLOG) 1 VIAL SQ SCH ×4 (02:16→17:32)
[2016-12-01] MEDS: PIPERACILLIN/TAZOB 2.25 GM 50 ML IVPB SCH ×3 (02:30→17:31)
[2016-12-01] MEDS: BANATROL PLUS POWDER PACKET PEG SCH ×4 (03:18→22:52)
[2016-12-01] MEDS: NAPH,MB-DB/K PH,MBDB POWDER PACKET PO SCH ×3 (03:19→22:53)
[2016-12-01] MEDS: HYDROCORTISONE SOD SUCCINATE 100 MG/2 ML VIAL IVPB SCH ×4 (03:19→22:51)
[2016-12-01] MEDS: TIGECYCLINE 50 MG in DEXTROSE 5%-WATER - 100 ML IVPB SCH ×2 (05:57→17:36)
[2016-12-01 07:57] LABS: MCH 31.2 pg (25.7-33.7); MCHC 33.2 g/dl (32.0-35.9); MEAN CELL VOLUME 94.2 fl (80-96); MEAN PLT VOLUME 10.1 fl (7.5-11.1); RDW 24.4 % (11.9-15.9); WHITE BLOOD COUNT 6.1 K/mm3 (4.0-10.0)
[2016-12-01 08:20] LABS: PLATELET COUNT 26 K/MM3 (134-434)
[2016-12-01 08:51] LABS: CALCIUM 7.2 mg/dL (8.5-10.1); CREATININE 2.1 mg/dL (0.7-1.3); MAGNESIUM 1.9 mg/dL (1.8-2.4); PHOSPHOROUS 4.2 mg/dL (2.5-4.9)
[2016-12-01] MEDS ORDERED: EPOETIN ALFA 2,000 UNITS/1 ML VIAL IVPUSH ONE (09:00)
--- NOTE | 2016-12-01 09:19 | PN ---
Progress Note (short form) - Note Progress Note: Attending Surgeon Patient seen and evaluated; chart reviewed; PA note reviewed. Asked to see patient about PEG tube. Concur w/ assessment and plan as outlined in the PA note; no indication for surgical intervention at this time. Tube is in place; no surrounding necrotic tissue; no need for debridement of site. Reconsult prn,. Corwin Armenta MD FACS
[2016-12-01] MEDS: ALBUMIN HUMAN 25% 12.5 GM/50 ML VIAL IVPB SCH ×2 (10:01→10:02)
[2016-12-01] MEDS ORDERED: PT OWN MED DRAWER 7, Y5N ONE ×4 (10:11→22:09)
[2016-12-01] MEDS ORDERED: INSULIN (NOVOLOG MIX 70/30) 100 UNITS/ML MDV SQ ONE (10:57)
[2016-12-01] MEDS: COLLAGENASE CLOSTRIDIUM HIST. 30 GRAMS TUBE TP SCH (10:58)
[2016-12-01] MEDS: PANTOPRAZOLE SODIUM 100 ML IVPB SCH (10:58)
[2016-12-01] MEDS: KETOCONAZOLE 2% CREAM - 60GM TUBE TP SCH (10:59)
[2016-12-01] MEDS ORDERED: INSULIN (NOVOLOG) ASPART 100 UNITS/ML 10ML VIAL ONE (10:59)
[2016-12-01] MEDS: MIDODRINE HCL 5 MG TABLET PO SCH ×2 (10:59→17:32)
[2016-12-01] MEDS: BACITRACIN 30 GM TUBE TOPICAL OINTMENT TP SCH (11:00)
[2016-12-01] MEDS: FLUCONAZOLE 40 MG/ML SUSPENSION 35 ML BOTTLE PEG SCH (11:01)
[2016-12-01] MEDS: AMINO ACIDS/PROTEIN HYDROLYS 30 ML LIQUID.PKT PO SCH ×2 (11:01→17:31)
--- NOTE | 2016-12-01 12:29 | PN ---
Physical Exam: SUBJECTIVE: Patient seen and examined Patient resting in bed, NAD, opening eyes spontaneously. 98.9 F on ojhn hugger. BP 122/58. Edematous. No bleeding. No hematemesis. Anuric. S/p HD yesterday - 1L, another HD today. PEG evaluated by surgery, draining bile to gravity. OBJECTIVE: Vital Signs Period Temp Pulse Resp BP Sys/Vang Pulse Ox Last 24 Hr 97.8 F-98.9 F 59-80 12-18 98-143/50-84 GENERAL: unresponsive, opens eyes. 3+ anasarca HEAD: Normal with no signs of trauma. EYES: sclera anicteric, conjunctiva clear. ENT: moist mucous membranes. NECK: supple. LUNGS: diffuse ronchi, trach, vent. HEART: Regular rate and rhythm, S1, S2 ABDOMEN: Soft, very edematous and because of it hard, globally reduced bowel sounds, feels hard because of edema. Peg in place, cleaned, hanging to bravity draining bile EXTREMITIES: 1+ pulses, warm, 3+ edema. b/l pressure ulcers on heels with black echar. clean dressing in place Sacrum: unstageable pressure ulcer with yellow echar, malodorous. NEUROLOGICAL: symmetrical face PSYCH: unable to assess SKIN: Warm, dry, tinea corporis diffusely on abdomen, chest, improving Laboratory Results - last 24 hr 11/30/16 12/01/16 12/01/16 17:10 02:14 06:05 WBC RBC Hgb Hct MCV MCHC RDW Plt Count MPV Sodium Potassium Chloride Carbon Dioxide Anion Gap BUN Creatinine POC Glucometer 153 213 145 Random Glucose Calcium Phosphorus Magnesium 12/01/16 12/01/16 12/01/16 06:30 06:30 11:22 WBC 6.1 D RBC 2.41 L Hgb 7.5 L Hct 22.7 L MCV 94.2 MCHC 33.2 RDW 24.4 H Plt Count 26 L* MPV 10.1 Sodium 144 Potassium 3.1 L Chloride 105 Carbon Dioxide 21 Anion Gap 18 H BUN 62 H D Creatinine 2.1 H D POC Glucometer 143 Random Glucose 142 H D Calcium 7.2 L Phosphorus 4.2 Magnesium 1.9 Active Medications Generic Name Dose Route Start Last Admin Trade Name Freq PRN Reason Stop Dose Admin Amino Acids 30 ml 11/29/16 17:30 12/01/16 11:01 Prosource No Carb Liquid Pkt PO Not Given BID@0800,1730 STEVEN Bacitracin 1 applic 11/30/16 10:00 12/01/16 11:00 Bacitracin - TP 1 applic DAILY STEVEN Administration Clotrimazole 1 applic 11/29/16 22:00 12/01/16 11:00 Lotrimin 1% Solution - TP 1 applic BID STEVEN Administration Collagenase 1 applic 11/30/16 10:00 12/01/16 10:58 Santyl - TP 1 applic DAILY STEVEN Administration Fluconazole 200 mg 11/30/16 10:00 12/01/16 11:01 Diflucan 40mg/Ml Suspension - PEG Not Given DAILY STEVEN Hydrocortisone Sodium Succinate 50 mg 11/29/16 21:00 12/01/16 11:00 Solu-Cortef - IVPB 50 mg Q6H-IV STEVEN Administration Dopamine HCl/Dextrose 250 mls @ 16.542 mls/hr 11/29/16 15:52 11/30/16 17:03 Dopamine 400 Mg/D5w - IVPB Not Given TITR STEVEN Protocol 5 MCG/KG/MIN Pantoprazole Sodium 100 mls @ 200 mls/hr 11/30/16 10:00 12/01/16 10:58 Protonix 40mg Ivpb (Pre-Docked) IVPB 200 mls/hr DAILY STEVEN Administration Tigecycline 50 mg/ Dextrose 100 mls @ 200 mls/hr 11/29/16 18:00 12/01/16 05:57 IVPB 200 mls/hr BID@0600,1800 STEVEN Administration Piperacillin Sod/Tazobactam Sod 50 mls @ 100 mls/hr 11/29/16 18:00 12/01/16 10: 58 Zosyn 2.25gm Ivpb (Pre-Docked) IVPB 100 mls/hr Q8H-IV STEVEN Administration Protocol Amino Acids 1,000 mls @ 30 mls/hr 11/29/16 19:00 11/30/16 19:27 Clinimix - IV Not Given Q24H STEVEN Insulin Aspart 1 vial 11/29/16 18:00 12/01/16 06:06 Novolog Vial Sliding Scale - SQ Not Given Q6HPO STEVEN Protocol Ketoconazole 1 applic 11/30/16 10:00 12/01/16 10:59 Nizoral 2% Cream - TP 1 applic DAILY STEVEN Administration Midodrine 5 mg 11/29/16 18:00 12/01/16 10:59 Proamatine - PO Not Given BID-MID STEVEN Morphine Sulfate 1 mg 11/29/16 15:52 Morphine Injection - IVPUSH Q4H PRN PAIN Potassium Phos/Sodium Phos 1 packet 11/29/16 22:00 12/01/16 10:59 Phos-Nak Packet - PO Not Given BID STEVEN ASSESSMENT/PLAN: This is a 76 yo M with PMH of hypotension, HLD, hypothyroidism, DM, COPD, ESRD, GERD, s/p tracheostomy, s/p gastrostomy presented to ER from [facility] for coffee ground emesis. Septic shock -likley source sacral decubitus ulcer -unstageable ulcer -evaluated by wound care. -no need for debridement at this time, dressing changes. Not healing -Gram Positive Bacteremia. Repeat culture negative -Lactic Acidosis -ID consult appreciated -wound culture: pseudomonas, ESBL -zosyn, tigecycline -strict I and O (anuric) PEG leaking -GI consult: peg to be taken out by surgery -Lexi: not necrotic, hang to gravity, may retry using it -nothing per peg for now. -clinamix Tinea Corporis -lotrimin TP Dermatitis -on penis, around peg -bacitracin ointment Diarrhea -likely due to abx treatment -rectal tube -C diff toxin negative x 2 Hypothermia -john hugger PRN ESRD on HD -nephro consult appreciated -HD yesterday, today -albumin Chronic Hypotension -hydrocortisone 50 q6 Acute on chronic Anemia -aggravated by GIB -coffee ground emesis resolved -total 3u pRBC this admission -hgb stable -monitor h/h -epogen -IV PPI BID DIC -due to sepsis -fibrinogen trending up -trend coags -Heme consult apprecited -no active bleed -hgb 7.5 -Platelets 26 DM -BGM q6 -sliding scale Anoxic Encephalopathy -unresponsive -unlikely to have meaningful recovery -grave prognosis -palliative care consult spoke with family -Family wishes full code due to shinto reasons FEN no IVF replete lytes prn osmolite Consulted medical ethics [phone] Dispo: 5s Problem List - Problems (1) GORDON (acute kidney injury) Code(s): N17.9 - ACUTE KIDNEY FAILURE, UNSPECIFIED (2) Anasarca Code(s): R60.1 - GENERALIZED EDEMA (3) Anemia Code(s): D64.9 - ANEMIA, UNSPECIFIED (4) CHF (congestive heart failure) Code(s): I50.9 - HEART FAILURE, UNSPECIFIED (5) CKD (chronic kidney disease) Code(s): N18.9 - CHRONIC KIDNEY DISEASE, UNSPECIFIED (6) Elevated INR Code(s): R79.1 - ABNORMAL COAGULATION PROFILE (7) Elevated brain natriuretic peptide (BNP) level Code(s): R79.89 - OTHER SPECIFIED ABNORMAL FINDINGS OF BLOOD CHEMISTRY (8) Fluid overload Code(s): E87.70 - FLUID OVERLOAD, UNSPECIFIED (9) History of CVA (cerebrovascular accident) Code(s): Z86.73 - PRSNL HX OF TIA (TIA), AND CEREB INFRC W/O RESID DEFICITS (10) Hypoalbuminemia Code(s): E88.09 - OTH DISORDERS OF PLASMA-PROTEIN METABOLISM, NEC (11) Hypotension Code(s): I95.9 - HYPOTENSION, UNSPECIFIED Qualifiers: Hypotension type: unspecified hypotension type Qualified Code(s): I95.9 - Hypotension, unspecified (12) Passes no urine Code(s): R34 - ANURIA AND OLIGURIA (13) Pressure ulcer Code(s): L89.90 - PRESSURE ULCER OF UNSPECIFIED SITE, UNSPECIFIED STAGE (14) Pressure ulcer of ankle Code(s): L89.509 - PRESSURE ULCER OF UNSPECIFIED ANKLE, UNSPECIFIED STAGE (15) Pressure ulcer of back Code(s): L89.109 - PRESSURE ULCER OF UNSP PART OF BACK, UNSPECIFIED STAGE (16) Sacral decubitus ulcer, stage IV Code(s): L89.154 - PRESSURE ULCER OF SACRAL REGION, STAGE 4 (17) Sepsis Code(s): A41.9 - SEPSIS, UNSPECIFIED ORGANISM Qualifiers: Sepsis type: sepsis due to unspecified organism Qualified Code(s): A41.9 - Sepsis, unspecified organism (18) Septic shock Code(s): A41.9 - SEPSIS, UNSPECIFIED ORGANISM R65.21 - SEVERE SEPSIS WITH SEPTIC SHOCK (19) Thrombocytopenia Code(s): D69.6 - THROMBOCYTOPENIA, UNSPECIFIED (20) Transaminitis Code(s): R74.0 - NONSPEC ELEV OF LEVELS OF TRANSAMNS & LACTIC ACID DEHYDRGNSE (21) Upper GI bleed Code(s): K92.2 - GASTROINTESTINAL HEMORRHAGE, UNSPECIFIED Visit type - Emergency Visit Emergency Visit: Yes ED Registration Date: 11/12/16 Care time: The patient presented to the Emergency Department on the above date and was hospitalized for further evaluation of their emergent condition. - New Patient This patient is new to me today: No - Critical Care Critical Care patient: No - Discharge Referral Referred to [facility] Med [facility].C.: No
--- NOTE | 2016-12-01 12:52 | PN ---
Progress Note (short form) - Note Progress Note: No significant change in overall condition. AC mode of vent. Intake & Output 11/28/16 11/29/16 11/30/16 12/01/16 23:59 23:59 23:59 23:59 Intake Total 949 516 1620 640 Output Total 100 100 Balance 582 183 0808 640 Weight 200 lb 6.4 oz 199 lb 5 oz Last Vital Signs Temp Pulse Resp BP Pulse Ox 98.4 F 62 12 122/58 97 12/01/16 06:55 12/01/16 10:27 12/01/16 11:05 12/01/16 10:27 11/30/16 09:00 Active Medications Amino Acids (Prosource No Carb Liquid Pkt) 30 ml PO BID@0800,1730 [facility] Last Admin: 12/01/16 11:01 Dose: Not Given Bacitracin (Bacitracin -) 1 applic TP DAILY [facility] Last Admin: 12/01/16 11:00 Dose: 1 applic Clotrimazole (Lotrimin 1% Solution -) 1 applic TP BID [facility] Last Admin: 12/01/16 11:00 Dose: 1 applic Collagenase (Santyl -) 1 applic TP DAILY [facility] Last Admin: 12/01/16 10:58 Dose: 1 applic Fluconazole (Diflucan 40mg/Ml Suspension -) 200 mg PEG DAILY [facility] Last Admin: 12/01/16 11:01 Dose: Not Given Hydrocortisone Sodium Succinate (Solu-Cortef -) 50 mg IVPB Q6H-IV [facility]EVEN Last Admin: 12/01/16 11:00 Dose: 50 mg Dopamine HCl/Dextrose (Dopamine 400 Mg/D5w -) 250 mls @ 16.542 mls/hr IVPB TITR STEVEN; 5 MCG/KG/MIN PRN Reason: Protocol Last Admin: 11/30/16 17:03 Dose: Not Given Pantoprazole Sodium (Protonix 40mg Ivpb (Pre-Docked)) 100 mls @ 200 mls/hr IVPB DAILY [facility] Last Admin: 12/01/16 10:58 Dose: 200 mls/hr Tigecycline 50 mg/ Dextrose 100 mls @ 200 mls/hr IVPB BID@0600,1800 [facility] Last Admin: 12/01/16 05:57 Dose: 200 mls/hr Piperacillin Sod/Tazobactam Sod (Zosyn 2.25gm Ivpb (Pre-Docked)) 50 mls @ 100 mls/hr IVPB Q8H-IV ST[facility] PRN Reason: Protocol Last Admin: 12/01/16 10:58 Dose: 100 mls/hr Amino Acids (Clinimix -) 1,000 mls @ 30 mls/hr IV Q24H [facility] Last Admin: 11/30/16 19:27 Dose: Not Given Potassium Chloride (Potassium Chloride 10 Meq Premix Ivpb -) 100 mls @ 100 mls/ hr IVPB Q60M [facility] Stop: 12/01/16 14:29 Insulin Aspart (Novolog Vial Sliding Scale -) 1 vial SQ Q6HPO [facility]EV[facility] PRN Reason: Protocol Last Admin: 12/01/16 06:06 Dose: Not Given Ketoconazole (Nizoral 2% Cream -) 1 applic TP DAILY [facility] Last Admin: 12/01/16 10:59 Dose: 1 applic Midodrine (Proamatine -) 5 mg PO BID-MID [facility] Last Admin: 12/01/16 10:59 Dose: Not Given Morphine Sulfate (Morphine Injection -) 1 mg IVPUSH Q4H PRN PRN Reason: PAIN Potassium Phos/Sodium Phos (Phos-Nak Packet -) 1 packet PO BID [facility] Last Admin: 12/01/16 10:59 Dose: Not Given Gen: vented, poorly responsive Heart: RRR Lung: scattered rhonchi Abd: soft, edematous Ext: + edema, multiple ulcers Laboratory Results - last 24 hr 11/30/16 12/01/16 12/01/16 17:10 02:14 06:05 WBC RBC Hgb Hct MCV MCHC RDW Plt Count MPV Sodium Potassium Chloride Carbon Dioxide Anion Gap BUN Creatinine POC Glucometer 153 213 145 Random Glucose Calcium Phosphorus Magnesium 12/01/16 12/01/16 12/01/16 06:30 06:30 11:22 WBC 6.1 D RBC 2.41 L Hgb 7.5 L Hct 22.7 L MCV 94.2 MCHC 33.2 RDW 24.4 H Plt Count 26 L* MPV 10.1 Sodium 144 Potassium 3.1 L Chloride 105 Carbon Dioxide 21 Anion Gap 18 H BUN 62 H D Creatinine 2.1 H D POC Glucometer 143 Random Glucose 142 H D Calcium 7.2 L Phosphorus 4.2 Magnesium 1.9 ASSESSMENT AND PLAN: Sacral Decubitus Ulcer Infection Gram Positive Bacteremia Septic Shock ESRD on HD Chronic Respiratory Failure Chronic Hypotension h/o CVA Anoxic Encephalopathy Anemia Thrombocytopenia - ABX per ID - wound care - midodrine - HD per renal - poor prognosis for any meaningful recovery, approaching medical futility, recommend palliative care Dr Gallagher
[2016-12-01] MEDS: KCL 10 MEQ IVPB 100 ML IVPB SCH ×2 (14:29→15:30)
--- NOTE | 2016-12-01 15:05 | PN ---
Progress Note, Physician History of Present Illness: Pt seen and examined at bedside. He was dialyzed today. He remains on the vent. Pt is lethargic. - Current Medication List Current Medications: Active Medications Amino Acids (Prosource No Carb Liquid Pkt) 30 ml PO BID@0800,1730 [facility] Last Admin: 12/01/16 11:01 Dose: Not Given Bacitracin (Bacitracin -) 1 applic TP DAILY [facility] Last Admin: 12/01/16 11:00 Dose: 1 applic Clotrimazole (Lotrimin 1% Solution -) 1 applic TP BID [facility] Last Admin: 12/01/16 11:00 Dose: 1 applic Collagenase (Santyl -) 1 applic TP DAILY [facility] Last Admin: 12/01/16 10:58 Dose: 1 applic Fluconazole (Diflucan 40mg/Ml Suspension -) 200 mg PEG DAILY [facility] Last Admin: 12/01/16 11:01 Dose: Not Given Hydrocortisone Sodium Succinate (Solu-Cortef -) 50 mg IVPB Q6H-IV [facility] Last Admin: 12/01/16 11:00 Dose: 50 mg Dopamine HCl/Dextrose (Dopamine 400 Mg/D5w -) 250 mls @ 16.542 mls/hr IVPB TITR STEVEN; 5 MCG/KG/MIN PRN Reason: Protocol Last Admin: 11/30/16 17:03 Dose: Not Given Pantoprazole Sodium (Protonix 40mg Ivpb (Pre-Docked)) 100 mls @ 200 mls/hr IVPB DAILY [facility] Last Admin: 12/01/16 10:58 Dose: 200 mls/hr Tigecycline 50 mg/ Dextrose 100 mls @ 200 mls/hr IVPB BID@0600,1800 [facility] Last Admin: 12/01/16 05:57 Dose: 200 mls/hr Piperacillin Sod/Tazobactam Sod (Zosyn 2.25gm Ivpb (Pre-Docked)) 50 mls @ 100 mls/hr IVPB Q8H-IV [facility] PRN Reason: Protocol Last Admin: 12/01/16 10:58 Dose: 100 mls/hr Amino Acids (Clinimix -) 1,000 mls @ 30 mls/hr IV Q24H [facility] Last Admin: 11/30/16 19:27 Dose: Not Given Insulin Aspart (Novolog Vial Sliding Scale -) 1 vial SQ Q6HPO [facility] PRN Reason: Protocol Last Admin: 12/01/16 14:29 Dose: Not Given Ketoconazole (Nizoral 2% Cream -) 1 applic TP DAILY [facility] Last Admin: 12/01/16 10:59 Dose: 1 applic Midodrine (Proamatine -) 5 mg PO BID-MID [facility] Last Admin: 12/01/16 10:59 Dose: Not Given Morphine Sulfate (Morphine Injection -) 1 mg IVPUSH Q4H PRN PRN Reason: PAIN Potassium Phos/Sodium Phos (Phos-Nak Packet -) 1 packet PO BID [facility] Last Admin: 12/01/16 10:59 Dose: Not Given - Objective Vital Signs: Vital Signs Temperature 93.2 F L 12/01/16 10:00 Pulse Rate 62 12/01/16 10:27 Respiratory Rate 12 12/01/16 14:10 Blood Pressure 122/58 12/01/16 10:27 O2 Sat by Pulse Oximetry (%) 97 11/30/16 09:00 Neck: Yes: Other (trache) Cardiovascular: Yes: S1, S2 Respiratory: Yes: Mechanically Ventilated Gastrointestinal: Yes: Other (peg) Genitourinary: Yes: Anuria, Incontinence Musculoskeletal: Yes: Muscle Weakness Edema: Yes Edema: LLE: 2+, RLE: 2+ Neurological: Yes: Lethargy, Pre-Existing Deficit Labs: CBC, BMP 12/01/16 06:30 12/01/16 06:30 INR, PTT INR 1.68 (0.82-1.09) H 11/24/16 08:10 Fibrinogen 220.0 mg/dL (238-498) L 11/24/16 08:10 Problem List - Problems (1) GORDON (acute kidney injury) Code(s): N17.9 - ACUTE KIDNEY FAILURE, UNSPECIFIED (2) Anasarca Code(s): R60.1 - GENERALIZED EDEMA (3) Anemia Code(s): D64.9 - ANEMIA, UNSPECIFIED (4) CHF (congestive heart failure) Code(s): I50.9 - HEART FAILURE, UNSPECIFIED (5) CKD (chronic kidney disease) Code(s): N18.9 - CHRONIC KIDNEY DISEASE, UNSPECIFIED (6) Fluid overload Code(s): E87.70 - FLUID OVERLOAD, UNSPECIFIED (7) History of CVA (cerebrovascular accident) Code(s): Z86.73 - PRSNL HX OF TIA (TIA), AND CEREB INFRC W/O RESID DEFICITS Assessment/Plan Current Medications Generic Name Dose Route Start Last Admin Trade Name Freq PRN Reason Stop Dose Admin Amino Acids 30 ml 11/29/16 17:30 12/01/16 11:01 Prosource No Carb Liquid Pkt PO Not Given BID@0800,1730 STEV[facility] Bacitracin 1 applic 11/30/16 10:00 12/01/16 11:00 Bacitracin - TP 1 applic DAILY STEVEN Administration Clotrimazole 1 applic 11/29/16 22:00 12/01/16 11:00 Lotrimin 1% Solution - TP 1 applic BID STEVEN Administration Collagenase 1 applic 11/30/16 10:00 12/01/16 10:58 Santyl - TP 1 applic DAILY STEVEN Administration Fluconazole 200 mg 11/30/16 10:00 12/01/16 11:01 Diflucan 40mg/Ml Suspension - PEG Not Given DAILY STEVEN Hydrocortisone Sodium Succinate 50 mg 11/29/16 21:00 12/01/16 11:00 Solu-Cortef - IVPB 50 mg Q6H-IV STEVEN Administration Dopamine HCl/Dextrose 250 mls @ 16.542 mls/hr 11/29/16 15:52 11/30/16 17:03 Dopamine 400 Mg/D5w - IVPB Not Given TITR STEVEN Protocol 5 MCG/KG/MIN Pantoprazole Sodium 100 mls @ 200 mls/hr 11/30/16 10:00 12/01/16 10:58 Protonix 40mg Ivpb (Pre-Docked) IVPB 200 mls/hr DAILY STEVEN Administration Tigecycline 50 mg/ Dextrose 100 mls @ 200 mls/hr 11/29/16 18:00 12/01/16 05:57 IVPB 200 mls/hr BID@0600,1800 STEVEN Administration Piperacillin Sod/Tazobactam Sod 50 mls @ 100 mls/hr 11/29/16 18:00 12/01/16 10: 58 Zosyn 2.25gm Ivpb (Pre-Docked) IVPB 100 mls/hr Q8H-IV [facility]EV[facility] Administration Protocol Amino Acids 1,000 mls @ 30 mls/hr 11/29/16 19:00 04/05/17 19:27 Clinimix - IV Not Given Q24H [facility] Insulin Aspart 1 vial 11/29/16 18:00 12/01/16 14:29 Novolog Vial Sliding Scale - SQ Not Given Q6HPO [facility] Protocol Ketoconazole 1 applic 11/30/16 10:00 12/01/16 10:59 Nizoral 2% Cream - TP 1 applic DAILY [facility] Administration Midodrine 5 mg 11/29/16 18:00 12/01/16 10:59 Proamatine - PO Not Given BID-MID [facility] Morphine Sulfate 1 mg 11/29/16 15:52 Morphine Injection - IVPUSH Q4H PRN PAIN Potassium Phos/Sodium Phos 1 packet 11/29/16 22:00 12/01/16 10:59 Phos-Nak Packet - PO Not Given BID [facility] Impression 1. ESRD 2. hypotension 3. chronic respiratory failure 4. sepsis 5. Anemia 6. GI bleed 7. CVA 8. DM 9. Hypothyroidism 10. pancytopenia Plan - pt tolerated HD today - GI follow up for PEG, cont clinimix for now - overall prognosis is poor - epogen for anemia - vent support - albumin ordered on HD for hypotension - it has been difficult to UF volume as he is hypotensive Dr Mireles
--- NOTE | 2016-12-01 15:28 | PN ---
Teaching Attending Note Name of Resident: Ros Dias ATTENDING PHYSICIAN STATEMENT I saw and evaluated the patient. I reviewed the resident's note and discussed the case with the resident. I agree with the resident's findings and plan as documented. SUBJECTIVE: unable to obtain hx OBJECTIVE: NAD , not responsive, opens eyes Pupils, round L > R . no facial droop , MMM, trach/vent. Lungs: b/l rales anteriorly Ext : 3+ pitting edema over legs and arms. Abd: soft, NT, ND , NL BS , 3+ pitting hard edema Skin:wounds were not examined ASSESSMENT AND PLAN: 76 y/o man with h/o Anoxic brain injury, chronic hypotension , HLP, COPD , chronic resp failure s/p trach, DM , hypothyroidism and other medical problems , who was brought from a NH due to coffee ground emesis .He was found to be in septic shock. 1-Septic shock: likely source is the decub ulcer, ? PNA . - Cont zosyn and tigacyclin . - cont steroid support and midodrine 2- Upper GI bleed : resolved. ? stress ulcer, VS PUD - Po ppi 3- DIC: due to severe sepsis. blood count monitoring will check coags tomorrow transfuse PRBC for HB < 7 4- dysfunctional peg seen by GI and Sx. will discuss further with GI Clinimix for now 5- ESRD: - cont HD. 6- hypoglycemia , resolved . monitor on clinimix 7- Sinus bradycardia : with episodes of PAF. - not a candidate for BB or AC at this point Dispo : [facility]
--- NOTE | 2016-12-01 16:22 | PN ---
Progress Note, Physician History of Present Illness: status quo surgery note noted about peg tube - Current Medication List Current Medications: Active Medications Amino Acids (Prosource No Carb Liquid Pkt) 30 ml PO BID@0800,1730 [facility] Last Admin: 12/01/16 11:01 Dose: Not Given Bacitracin (Bacitracin -) 1 applic TP DAILY [facility] Last Admin: 12/01/16 11:00 Dose: 1 applic Clotrimazole (Lotrimin 1% Solution -) 1 applic TP BID [facility] Last Admin: 12/01/16 11:00 Dose: 1 applic Collagenase (Santyl -) 1 applic TP DAILY [facility] Last Admin: 12/01/16 10:58 Dose: 1 applic Fluconazole (Diflucan 40mg/Ml Suspension -) 200 mg PEG DAILY [facility] Last Admin: 12/01/16 11:01 Dose: Not Given Hydrocortisone Sodium Succinate (Solu-Cortef -) 50 mg IVPB Q6H-IV [facility] Last Admin: 12/01/16 15:49 Dose: 50 mg Dopamine HCl/Dextrose (Dopamine 400 Mg/D5w -) 250 mls @ 16.542 mls/hr IVPB TITR STEVEN; 5 MCG/KG/MIN PRN Reason: Protocol Last Admin: 11/30/16 17:03 Dose: Not Given Pantoprazole Sodium (Protonix 40mg Ivpb (Pre-Docked)) 100 mls @ 200 mls/hr IVPB DAILY [facility] Last Admin: 12/01/16 10:58 Dose: 200 mls/hr Tigecycline 50 mg/ Dextrose 100 mls @ 200 mls/hr IVPB BID@0600,1800 [facility] Last Admin: 12/01/16 05:57 Dose: 200 mls/hr Piperacillin Sod/Tazobactam Sod (Zosyn 2.25gm Ivpb (Pre-Docked)) 50 mls @ 100 mls/hr IVPB Q8H-IV [facility] PRN Reason: Protocol Last Admin: 12/01/16 10:58 Dose: 100 mls/hr Amino Acids (Clinimix -) 1,000 mls @ 30 mls/hr IV Q24H [facility] Last Admin: 11/30/16 19:27 Dose: Not Given Insulin Aspart (Novolog Vial Sliding Scale -) 1 vial SQ Q6HPO [facility] PRN Reason: Protocol Last Admin: 12/01/16 14:29 Dose: Not Given Ketoconazole (Nizoral 2% Cream -) 1 applic TP DAILY [facility] Last Admin: 12/01/16 10:59 Dose: 1 applic Midodrine (Proamatine -) 5 mg PO BID-MID [facility] Last Admin: 12/01/16 10:59 Dose: Not Given Morphine Sulfate (Morphine Injection -) 1 mg IVPUSH Q4H PRN PRN Reason: PAIN Potassium Phos/Sodium Phos (Phos-Nak Packet -) 1 packet PO BID [facility] Last Admin: 12/01/16 10:59 Dose: Not Given - Objective Vital Signs: Vital Signs Temperature 93.2 F L 12/01/16 10:00 Pulse Rate 62 12/01/16 10:27 Respiratory Rate 12 12/01/16 14:10 Blood Pressure 122/58 12/01/16 10:27 O2 Sat by Pulse Oximetry (%) 97 11/30/16 09:00 Constitutional: Yes: Other Cardiovascular: Yes: Regular Rate and Rhythm, Other Respiratory: Yes: Mechanically Ventilated, Other (trachestomy) Gastrointestinal: Yes: Soft, Distention, Other (peg in place) Musculoskeletal: Yes: Other Extremities: Yes: Other Integumentary: Yes: Other (multiple pressure ulcers drainage less but still draining) Wound/Incision: Yes: Other Neurological: Yes: Other (opens eyes) Psychiatric: Yes: Other Labs: CBC, BMP 12/01/16 06:30 12/01/16 06:30 INR, PTT INR 1.68 (0.82-1.09) H 11/24/16 08:10 Fibrinogen 220.0 mg/dL (238-498) L 11/24/16 08:10 Assessment/Plan decubitus ulcer multiple pressure ulcer infected peg tube site septic shock lactic acidosis hypotension hypothermia esrd cva gram positive bacteremia rash plan continue current mgmt continue abx patients prognosis is poor continue maintaining body temperature awaiting for final plan
[2016-12-01] MEDS: DOPAMINE 400 MG/D5W - 250 ML IVPB SCH (16:40)
[2016-12-02] MEDS: INSULIN SLIDING SCALE (NOVOLOG) 1 VIAL SQ SCH ×5 (00:12→23:48)
[2016-12-02] MEDS: AMINO ACIDS 4.25%/D5W 1,000 ML IV SCH ×3 (00:13→23:28)
--- NOTE | 2016-12-02 00:45 | HOSP ---
Subjective - Review of Symptoms Events since last encounter: Nurse notified us regarding family who thinks pt is having a stroke. Dr. Yanez spoke with family of patient (mother and son who are at bedside) and explained pt has poor prognosis secondary to severe anoxic brain injury with some reflexes intact. However, pt is vent dependent and with ESRD on dialysis and septic secondary to multiple decubitus ulcers. Pt examined w/corneal reflexes intact, remains vent dependent as his respiratory rate is equal to that of the vent. Pt also remains with generalized edema and has no urine output and has some fecal output. Advanced directives again discussed with family, appears as if son (Matthew Jimenez ) has not been forthright with mother as to father's medical condition. As per mother and son who is present at bedside, father wanted everything done. Pt remains full code at this time. Physical Examination Vital Signs: Vital Signs Temperature 97.8 F 12/01/16 22:42 Pulse Rate 62 12/01/16 18:00 Respiratory Rate 20 12/01/16 21:15 Blood Pressure 105/59 12/01/16 23:19 O2 Sat by Pulse Oximetry (%) 97 11/30/16 09:00 Labs: CBC, BMP 12/01/16 06:30 12/01/16 06:30 Visit type - Emergency Visit Emergency Visit: Yes ED Registration Date: 11/12/16 Care time: The patient presented to the Emergency Department on the above date and was hospitalized for further evaluation of their emergent condition. - New Patient This patient is new to me today: No - Critical Care Critical Care patient: No Total Critical Care Time (in minutes): 35 Critical Care Statement: The care of this patient involved high complexity decision making to prevent further life threatening deterioration of the patient 's condition and/or to evalute & treat vital organ system(s) failure or risk of failure.
[2016-12-02] MEDS ORDERED: PT OWN MED DRAWER 7, Y5N ONE ×2 (03:02→05:56)
[2016-12-02] MEDS: HYDROCORTISONE SOD SUCCINATE 100 MG/2 ML VIAL IVPB SCH ×4 (03:03→16:00)
[2016-12-02] MEDS: PIPERACILLIN/TAZOB 2.25 GM 50 ML IVPB SCH ×3 (03:03→20:07)
[2016-12-02] MEDS: TIGECYCLINE 50 MG in DEXTROSE 5%-WATER - 100 ML IVPB SCH ×2 (06:53→20:07)
[2016-12-02] MEDS: BANATROL PLUS POWDER PACKET PEG SCH ×3 (07:18→22:21)
[2016-12-02 07:42] LABS: MCH 31.4 pg (25.7-33.7); MCHC 33.3 g/dl (32.0-35.9); MEAN CELL VOLUME 94.2 fl (80-96); MEAN PLT VOLUME 10.9 fl (7.5-11.1); RDW 23.8 % (11.9-15.9); WHITE BLOOD COUNT 9.4 K/mm3 (4.0-10.0)
[2016-12-02 07:52] LABS: PLATELET COUNT 34 K/MM3 (134-434)
[2016-12-02] MEDS: AMINO ACIDS/PROTEIN HYDROLYS 30 ML LIQUID.PKT PO SCH ×2 (08:00→17:00)
[2016-12-02 08:04] LABS: CALCIUM 7.8 mg/dL (8.5-10.1); MAGNESIUM 1.9 mg/dL (1.8-2.4)
[2016-12-02 08:07] LABS: COCKROFT - GAULT 49.44; CREATININE 1.6 mg/dL (0.7-1.3); PHOSPHOROUS 3.3 mg/dL (2.5-4.9)
[2016-12-02 08:31] LABS: INR 1.87 (0.82-1.09); PROTHROMBIN TIME (PATIENT) 20.8 SEC (9.98-11.88)
[2016-12-02] MEDS: MIDODRINE HCL 5 MG TABLET PO SCH ×2 (10:00→17:02)
[2016-12-02] MEDS: FLUCONAZOLE 40 MG/ML SUSPENSION 35 ML BOTTLE PEG SCH (10:00)
[2016-12-02] MEDS: NAPH,MB-DB/K PH,MBDB POWDER PACKET PO SCH ×2 (10:38→22:21)
[2016-12-02] MEDS: PANTOPRAZOLE SODIUM 100 ML IVPB SCH (13:08)
[2016-12-02] MEDS: CLOTRIMAZOLE 1%TOPICAL SOLUTION 30 ML BOTTLE TP SCH (13:36)
[2016-12-02] MEDS: BACITRACIN 30 GM TUBE TOPICAL OINTMENT TP SCH (13:37)
[2016-12-02] MEDS: COLLAGENASE CLOSTRIDIUM HIST. 30 GRAMS TUBE TP SCH (13:37)
--- NOTE | 2016-12-02 14:59 | PN ---
Progress Note, Physician History of Present Illness: Pt seen and examined at bedside. No great change. - Current Medication List Current Medications: Active Medications Amino Acids (Prosource No Carb Liquid Pkt) 30 ml PO BID@0800,1730 [facility] Last Admin: 12/02/16 08:00 Dose: Not Given Bacitracin (Bacitracin -) 1 applic TP DAILY [facility] Last Admin: 12/02/16 13:37 Dose: 1 applic Clotrimazole (Lotrimin 1% Solution -) 1 applic TP BID [facility] Last Admin: 12/02/16 13:36 Dose: 1 applic Collagenase (Santyl -) 1 applic TP DAILY [facility] Last Admin: 12/02/16 13:37 Dose: 1 applic Fluconazole (Diflucan 40mg/Ml Suspension -) 200 mg PEG DAILY [facility] Last Admin: 12/02/16 10:00 Dose: Not Given Hydrocortisone Sodium Succinate (Solu-Cortef -) 50 mg IVPB Q6H-IV [facility] Last Admin: 12/02/16 12:32 Dose: 50 mg Dopamine HCl/Dextrose (Dopamine 400 Mg/D5w -) 250 mls @ 16.542 mls/hr IVPB TITR [facility]; 5 MCG/KG/MIN PRN Reason: Protocol Last Admin: 12/01/16 16:40 Dose: Not Given Pantoprazole Sodium (Protonix 40mg Ivpb (Pre-Docked)) 100 mls @ 200 mls/hr IVPB DAILY [facility] Last Admin: 12/02/16 13:08 Dose: 200 mls/hr Tigecycline 50 mg/ Dextrose 100 mls @ 200 mls/hr IVPB BID@0600,1800 [facility] Last Admin: 12/02/16 06:53 Dose: 200 mls/hr Piperacillin Sod/Tazobactam Sod (Zosyn 2.25gm Ivpb (Pre-Docked)) 50 mls @ 100 mls/hr IVPB Q8H-IV [facility] PRN Reason: Protocol Last Admin: 12/02/16 10:20 Dose: 100 mls/hr Amino Acids (Clinimix -) 1,000 mls @ 30 mls/hr IV Q24H [facility] Last Admin: 12/02/16 00:13 Dose: 30 mls/hr Insulin Aspart (Novolog Vial Sliding Scale -) 1 vial SQ Q6HPO [facility] PRN Reason: Protocol Last Admin: 12/02/16 12:43 Dose: 2 units Ketoconazole (Nizoral 2% Cream -) 1 applic TP DAILY [facility] Last Admin: 12/01/16 10:59 Dose: 1 applic Midodrine (Proamatine -) 5 mg PO BID-MID [facility] Last Admin: 12/02/16 10:00 Dose: Not Given Morphine Sulfate (Morphine Injection -) 1 mg IVPUSH Q4H PRN PRN Reason: PAIN Potassium Phos/Sodium Phos (Phos-Nak Packet -) 1 packet PO BID [facility] Last Admin: 12/02/16 10:38 Dose: Not Given - Objective Vital Signs: Vital Signs Temperature 97.7 F 12/02/16 10:47 Pulse Rate 88 12/02/16 10:47 Respiratory Rate 12 12/02/16 14:15 Blood Pressure 113/66 12/02/16 10:47 O2 Sat by Pulse Oximetry (%) 99 12/02/16 10:00 Constitutional: Yes: Calm Cardiovascular: Yes: S1, S2 Respiratory: Yes: Mechanically Ventilated Gastrointestinal: Yes: Other (drainage from peg site) Musculoskeletal: Yes: Muscle Weakness Edema: Yes Edema: LLE: 2+, RLE: 2+ Neurological: Yes: Lethargy Labs: CBC, BMP 12/02/16 06:30 12/02/16 06:30 INR, PTT INR 1.87 (0.82-1.09) H 12/02/16 06:30 Fibrinogen 176.0 mg/dL (238-498) L 12/02/16 06:30 Problem List - Problems (1) GORDON (acute kidney injury) Code(s): N17.9 - ACUTE KIDNEY FAILURE, UNSPECIFIED (2) Anasarca Code(s): R60.1 - GENERALIZED EDEMA (3) Anemia Code(s): D64.9 - ANEMIA, UNSPECIFIED (4) CHF (congestive heart failure) Code(s): I50.9 - HEART FAILURE, UNSPECIFIED (5) CKD (chronic kidney disease) Code(s): N18.9 - CHRONIC KIDNEY DISEASE, UNSPECIFIED (6) Fluid overload Code(s): E87.70 - FLUID OVERLOAD, UNSPECIFIED (7) History of CVA (cerebrovascular accident) Code(s): Z86.73 - PRSNL HX OF TIA (TIA), AND CEREB INFRC W/O RESID DEFICITS Assessment/Plan Current Medications Generic Name Dose Route Start Last Admin Trade Name Armando PRN Reason Stop Dose Admin Amino Acids 30 ml 11/29/16 17:30 12/02/16 08:00 Prosource No Carb Liquid Pkt PO Not Given BID@0800,1730 [facility] Bacitracin 1 applic 11/30/16 10:00 12/02/16 13:37 Bacitracin - TP 1 applic DAILY [facility] Administration Clotrimazole 1 applic 11/29/16 22:00 12/02/16 13:36 Lotrimin 1% Solution - TP 1 applic BID [facility] Administration Collagenase 1 applic 11/30/16 10:00 12/02/16 13:37 Santyl - TP 1 applic DAILY [facility] Administration Fluconazole 200 mg 11/30/16 10:00 12/02/16 10:00 Diflucan 40mg/Ml Suspension - PEG Not Given DAILY [facility] Hydrocortisone Sodium Succinate 50 mg 11/29/16 21:00 12/02/16 12:32 Solu-Cortef - IVPB 50 mg Q6H-IV [facility] Administration Dopamine HCl/Dextrose 250 mls @ 16.542 mls/hr 11/29/16 15:52 12/01/16 16:40 Dopamine 400 Mg/D5w - IVPB Not Given TITR STEVEN Protocol 5 MCG/KG/MIN Pantoprazole Sodium 100 mls @ 200 mls/hr 11/30/16 10:00 12/02/16 13:08 Protonix 40mg Ivpb (Pre-Docked) IVPB 200 mls/hr DAILY [facility] Administration Tigecycline 50 mg/ Dextrose 100 mls @ 200 mls/hr 11/29/16 18:00 12/02/16 06:53 IVPB 200 mls/hr BID@0600,1800 [facility] Administration Piperacillin Sod/Tazobactam Sod 50 mls @ 100 mls/hr 11/29/16 18:00 12/02/16 10: 20 Zosyn 2.25gm Ivpb (Pre-Docked) IVPB 100 mls/hr Q8H-IV [facility] Administration Protocol Amino Acids 1,000 mls @ 30 mls/hr 11/29/16 19:00 12/02/16 00:13 Clinimix - IV 30 mls/hr Q24H [facility] Administration Insulin Aspart 1 vial 11/29/16 18:00 12/02/16 12:43 Novolog Vial Sliding Scale - SQ 2 units Q6HPO [facility] Administration Protocol Ketoconazole 1 applic 11/30/16 10:00 12/01/16 10:59 Nizoral 2% Cream - TP 1 applic DAILY [facility] Administration Midodrine 5 mg 11/29/16 18:00 12/02/16 10:00 Proamatine - PO Not Given BID-MID [facility] Morphine Sulfate 1 mg 11/29/16 15:52 Morphine Injection - IVPUSH Q4H PRN PAIN Potassium Phos/Sodium Phos 1 packet 11/29/16 22:00 12/02/16 10:38 Phos-Nak Packet - PO Not Given BID [facility] Impression 1. ESRD 2. hypotension 3. chronic respiratory failure 4. sepsis 5. Anemia 6. GI bleed 7. CVA 8. DM 9. Hypothyroidism 10. pancytopenia Plan - will arrange for HD in am - cont clinimix - titrate down steroids as tolerated - prognosis is poor - vent support - epogen for anemia - it has been difficult to UF volume as he is hypotensive Dr Mireles
--- NOTE | 2016-12-02 15:13 | PN ---
Physical Exam: SUBJECTIVE: Patient seen and examined Patient resting in bed, NAD, opening eyes spontaneously. 97.4 F on john hugger. BP 116/69. Edematous. No bleeding. No hematemesis. Anuric. PEG draining bile to gravity. Grave prognosis once again explained to family last night. OBJECTIVE: Vital Signs Period Temp Pulse Resp BP Sys/Vang Pulse Ox Last 24 Hr 95.1 F-98.5 F 59-89 12-20 87-126/52-69 98-99 GENERAL: unresponsive, opens eyes. 3+ anasarca HEAD: Normal with no signs of trauma. EYES: sclera anicteric, conjunctiva clear. ENT: moist mucous membranes. NECK: supple. LUNGS: diffuse ronchi, trach, vent. HEART: Regular rate and rhythm, S1, S2 ABDOMEN: Soft, very edematous and because of it hard, globally reduced bowel sounds, feels hard because of edema. Peg in place, cleaned, hanging to bravity draining bile EXTREMITIES: 1+ pulses, warm, 3+ edema. b/l pressure ulcers on heels with black echar. clean dressing in place Sacrum: unstageable pressure ulcer with yellow echar, malodorous. NEUROLOGICAL: symmetrical face PSYCH: unable to assess SKIN: Warm, dry, tinea corporis diffusely on abdomen, chest, improving Laboratory Results - last 24 hr 12/01/16 12/01/16 12/02/16 17:30 22:56 06:30 WBC 9.4 D RBC 2.56 L Hgb 8.0 L Hct 24.2 L MCV 94.2 MCHC 33.3 RDW 23.8 H Plt Count 34 L* D MPV 10.9 INR Fibrinogen Sodium Potassium Chloride Carbon Dioxide Anion Gap BUN Creatinine POC Glucometer 160 167 Random Glucose Calcium Phosphorus Magnesium 12/02/16 12/02/16 12/02/16 06:30 06:30 06:50 WBC RBC Hgb Hct MCV MCHC RDW Plt Count MPV INR 1.87 H Fibrinogen 176.0 L Sodium 145 Potassium 3.2 L Chloride 105 Carbon Dioxide 24 Anion Gap 16 BUN 48 H D Creatinine 1.6 H D POC Glucometer 145 Random Glucose 143 H Calcium 7.8 L Phosphorus 3.3 D Magnesium 1.9 12/02/16 11:16 WBC RBC Hgb Hct MCV MCHC RDW Plt Count MPV INR Fibrinogen Sodium Potassium Chloride Carbon Dioxide Anion Gap BUN Creatinine POC Glucometer 186 Random Glucose Calcium Phosphorus Magnesium Active Medications Generic Name Dose Route Start Last Admin Trade Name Freq PRN Reason Stop Dose Admin Albumin Human 12.5 gm 12/03/16 15:00 Albumin Human 25% IVPB Q30M [facility] Amino Acids 30 ml 11/29/16 17:30 12/02/16 08:00 Prosource No Carb Liquid Pkt PO Not Given BID@0800,1730 [facility] Bacitracin 1 applic 11/30/16 10:00 12/02/16 13:37 Bacitracin - TP 1 applic DAILY [facility] Administration Clotrimazole 1 applic 11/29/16 22:00 12/02/16 13:36 Lotrimin 1% Solution - TP 1 applic BID [facility] Administration Collagenase 1 applic 11/30/16 10:00 12/02/16 13:37 Santyl - TP 1 applic DAILY [facility] Administration Epoetin Rigoberto 8,000 units 12/03/16 15:00 Epogen - IVPUSH 12/03/16 15:01 ONCE ONE Fluconazole 200 mg 11/30/16 10:00 12/02/16 10:00 Diflucan 40mg/Ml Suspension - PEG Not Given DAILY [facility] Hydrocortisone Sodium Succinate 50 mg 11/29/16 21:00 12/02/16 12:32 Solu-Cortef - IVPB 50 mg Q6H-IV [facility] Administration Dopamine HCl/Dextrose 250 mls @ 16.542 mls/hr 11/29/16 15:52 12/01/16 16:40 Dopamine 400 Mg/D5w - IVPB Not Given TITR STEVEN Protocol 5 MCG/KG/MIN Pantoprazole Sodium 100 mls @ 200 mls/hr 11/30/16 10:00 12/02/16 13:08 Protonix 40mg Ivpb (Pre-Docked) IVPB 200 mls/hr DAILY [facility] Administration Tigecycline 50 mg/ Dextrose 100 mls @ 200 mls/hr 11/29/16 18:00 12/02/16 06:53 IVPB 200 mls/hr BID@0600,1800 [facility] Administration Piperacillin Sod/Tazobactam Sod 50 mls @ 100 mls/hr 11/29/16 18:00 12/02/16 10: 20 Zosyn 2.25gm Ivpb (Pre-Docked) IVPB 100 mls/hr Q8H-IV [facility] Administration Protocol Amino Acids 1,000 mls @ 30 mls/hr 11/29/16 19:00 12/02/16 00:13 Clinimix - IV 30 mls/hr Q24H [facility] Administration Insulin Aspart 1 vial 11/29/16 18:00 12/02/16 12:43 Novolog Vial Sliding Scale - SQ 2 units Q6HPO [facility] Administration Protocol Ketoconazole 1 applic 11/30/16 10:00 12/01/16 10:59 Nizoral 2% Cream - TP 1 applic DAILY [facility] Administration Midodrine 5 mg 11/29/16 18:00 12/02/16 10:00 Proamatine - PO Not Given BID-MID [facility] Morphine Sulfate 1 mg 11/29/16 15:52 Morphine Injection - IVPUSH Q4H PRN PAIN Potassium Phos/Sodium Phos 1 packet 11/29/16 22:00 12/02/16 10:38 Phos-Nak Packet - PO Not Given BID [facility] ASSESSMENT/PLAN: This is a 76 yo M with PMH of hypotension, HLD, hypothyroidism, DM, COPD, ESRD, GERD, s/p tracheostomy, s/p gastrostomy presented to ER from [facility] for coffee ground emesis. [facility] sacral decubitus [facility] -unstageable ulcer -evaluated by wound care. -no need for debridement at this time, dressing changes. Not healing -Gram Positive Bacteremia. Repeat culture negative -Lactic Acidosis -ID consult appreciated -wound culture: pseudomonas, ESBL -zosyn, tigecycline -strict I and O (anuric) PEG leaking -GI consult: peg to be taken out by surgery -Lexi: not necrotic, hang to gravity, may retry using it -nothing per peg for now. -clinamix Tinea Corporis -lotrimin TP Dermatitis -on penis, around peg -bacitracin ointment Diarrhea -likely due to abx treatment -rectal tube -C diff toxin negative x 2 Hypothermia -john hugger PRN ESRD on HD -nephro consult appreciated -HD yesterday, today -albumin Chronic Hypotension -hydrocortisone 50 q6 Acute on chronic Anemia -aggravated by GIB -coffee ground emesis resolved -total 3u pRBC this admission -hgb stable -monitor h/h -epogen -IV PPI BID DIC -due to sepsis -fibrinogen trending up -trend coags -Heme consult apprecited -no active bleed -hgb 8 -Platelets 34 DM -BGM q6 -sliding scale Anoxic Encephalopathy -unresponsive -unlikely to have meaningful recovery -grave prognosis -palliative care consult spoke with family -Family wishes full code due to anabaptist reasons FEN no IVF replete lytes prn osmolite Consulted medical ethics [phone] Dispo: 5s Problem List - Problems (1) GORDON (acute kidney injury) Code(s): N17.9 - ACUTE KIDNEY FAILURE, UNSPECIFIED (2) Anasarca Code(s): R60.1 - GENERALIZED EDEMA (3) Anemia Code(s): D64.9 - ANEMIA, UNSPECIFIED (4) CHF (congestive heart failure) Code(s): I50.9 - HEART FAILURE, UNSPECIFIED (5) CKD (chronic kidney disease) Code(s): N18.9 - CHRONIC KIDNEY DISEASE, UNSPECIFIED (6) Elevated INR Code(s): R79.1 - ABNORMAL COAGULATION PROFILE (7) Elevated brain natriuretic peptide (BNP) level Code(s): R79.89 - OTHER SPECIFIED ABNORMAL FINDINGS OF BLOOD CHEMISTRY (8) Fluid overload Code(s): E87.70 - FLUID OVERLOAD, UNSPECIFIED (9) History of CVA (cerebrovascular accident) Code(s): Z86.73 - PRSNL HX OF TIA (TIA), AND CEREB INFRC W/O RESID DEFICITS (10) Hypoalbuminemia Code(s): E88.09 - OTH DISORDERS OF PLASMA-PROTEIN METABOLISM, NEC (11) Hypotension Code(s): I95.9 - HYPOTENSION, UNSPECIFIED Qualifiers: Hypotension type: unspecified hypotension type Qualified Code(s): I95.9 - Hypotension, unspecified (12) Passes no urine Code(s): R34 - ANURIA AND OLIGURIA (13) Pressure ulcer Code(s): L89.90 - PRESSURE ULCER OF UNSPECIFIED SITE, UNSPECIFIED STAGE (14) Pressure ulcer of ankle Code(s): L89.509 - PRESSURE ULCER OF UNSPECIFIED ANKLE, UNSPECIFIED STAGE (15) Pressure ulcer of back Code(s): L89.109 - PRESSURE ULCER OF UNSP PART OF BACK, UNSPECIFIED STAGE (16) Sacral decubitus ulcer, stage IV Code(s): L89.154 - PRESSURE ULCER OF SACRAL REGION, STAGE 4 (17) Sepsis Code(s): A41.9 - SEPSIS, UNSPECIFIED ORGANISM Qualifiers: Sepsis type: sepsis due to unspecified organism Qualified Code(s): A41.9 - Sepsis, unspecified organism (18) Septic shock Code(s): A41.9 - SEPSIS, UNSPECIFIED ORGANISM R65.21 - SEVERE SEPSIS WITH SEPTIC SHOCK (19) Thrombocytopenia Code(s): D69.6 - THROMBOCYTOPENIA, UNSPECIFIED (20) Transaminitis Code(s): R74.0 - NONSPEC ELEV OF LEVELS OF TRANSAMNS & LACTIC ACID DEHYDRGNSE (21) Upper GI bleed Code(s): K92.2 - GASTROINTESTINAL HEMORRHAGE, UNSPECIFIED Visit type - Emergency Visit Emergency Visit: Yes ED Registration Date: 11/12/16 Care time: The patient presented to the Emergency Department on the above date and was hospitalized for further evaluation of their emergent condition. - New Patient This patient is new to me today: No - Critical Care Critical Care patient: No - Discharge Referral Referred to [facility] Med [facility] No
--- NOTE | 2016-12-02 15:22 | PN ---
Progress Note, Physician History of Present Illness: continues to do poorly no new events - Current Medication List Current Medications: Active Medications Albumin Human (Albumin Human 25%) 12.5 gm IVPB Q30M [facility] Amino Acids (Prosource No Carb Liquid Pkt) 30 ml PO BID@0800,1730 [facility] Last Admin: 12/02/16 08:00 Dose: Not Given Bacitracin (Bacitracin -) 1 applic TP DAILY [facility] Last Admin: 12/02/16 13:37 Dose: 1 applic Clotrimazole (Lotrimin 1% Solution -) 1 applic TP BID [facility] Last Admin: 12/02/16 13:36 Dose: 1 applic Collagenase (Santyl -) 1 applic TP DAILY [facility] Last Admin: 12/02/16 13:37 Dose: 1 applic Epoetin Rigoberto (Epogen -) 8,000 units IVPUSH ONCE ONE Stop: 12/03/16 15:01 Fluconazole (Diflucan 40mg/Ml Suspension -) 200 mg PEG DAILY [facility] Last Admin: 12/02/16 10:00 Dose: Not Given Hydrocortisone Sodium Succinate (Solu-Cortef -) 50 mg IVPB Q6H-IV [facility] Last Admin: 12/02/16 12:32 Dose: 50 mg Dopamine HCl/Dextrose (Dopamine 400 Mg/D5w -) 250 mls @ 16.542 mls/hr IVPB TITR STEVEN; 5 MCG/KG/MIN PRN Reason: Protocol Last Admin: 12/01/16 16:40 Dose: Not Given Pantoprazole Sodium (Protonix 40mg Ivpb (Pre-Docked)) 100 mls @ 200 mls/hr IVPB DAILY [facility] Last Admin: 12/02/16 13:08 Dose: 200 mls/hr Tigecycline 50 mg/ Dextrose 100 mls @ 200 mls/hr IVPB BID@0600,1800 [facility] Last Admin: 12/02/16 06:53 Dose: 200 mls/hr Piperacillin Sod/Tazobactam Sod (Zosyn 2.25gm Ivpb (Pre-Docked)) 50 mls @ 100 mls/hr IVPB Q8H-IV [facility]EVEN PRN Reason: Protocol Last Admin: 12/02/16 10:20 Dose: 100 mls/hr Amino Acids (Clinimix -) 1,000 mls @ 30 mls/hr IV Q24H [facility] Last Admin: 12/02/16 00:13 Dose: 30 mls/hr Potassium Chloride (Potassium Chloride 10 Meq Premix Ivpb -) 100 mls @ 100 mls/ hr IVPB Q60M [facility] Stop: 12/02/16 17:29 Insulin Aspart (Novolog Vial Sliding Scale -) 1 vial SQ Q6HPO [facility] PRN Reason: Protocol Last Admin: 12/02/16 12:43 Dose: 2 units Ketoconazole (Nizoral 2% Cream -) 1 applic TP DAILY [facility] Last Admin: 12/01/16 10:59 Dose: 1 applic Midodrine (Proamatine -) 5 mg PO BID-MID [facility] Last Admin: 12/02/16 10:00 Dose: Not Given Morphine Sulfate (Morphine Injection -) 1 mg IVPUSH Q4H PRN PRN Reason: PAIN Potassium Phos/Sodium Phos (Phos-Nak Packet -) 1 packet PO BID [facility] Last Admin: 12/02/16 10:38 Dose: Not Given - Objective Vital Signs: Vital Signs Temperature 97.8 F 12/02/16 14:12 Pulse Rate 96 H 12/02/16 14:12 Respiratory Rate 12 12/02/16 14:15 Blood Pressure 131/74 12/02/16 14:12 O2 Sat by Pulse Oximetry (%) 99 12/02/16 10:00 Constitutional: Yes: Other Cardiovascular: Yes: Regular Rate and Rhythm Respiratory: Yes: Mechanically Ventilated, Other (trach) Gastrointestinal: Yes: Soft, Tenderness, Other (peg tube in place) Extremities: Yes: Other Integumentary: Yes: Pressure Ulcer (multiple), Rash, Other Wound/Incision: Yes: Draining, Other (draining) Neurological: Yes: Other Psychiatric: Yes: Other Labs: CBC, BMP 12/02/16 06:30 12/02/16 06:30 INR, PTT INR 1.87 (0.82-1.09) H 12/02/16 06:30 Fibrinogen 176.0 mg/dL (238-498) L 12/02/16 06:30 Assessment/Plan decubitus ulcer multiple pressure ulcer infected peg tube site septic shock lactic acidosis hypotension hypothermia esrd cva gram positive bacteremia rash plan continue current mgmt continue abx patients prognosis is poor continue maintaining body temperature awaiting for final plan will probably stop zosyn in a day or so
[2016-12-02] MEDS: DOPAMINE 400 MG/D5W - 250 ML IVPB SCH (16:07)
--- NOTE | 2016-12-02 16:27 | PN ---
Progress Note (short form) - Note Progress Note: PULMONARY MVV 12/450/45 Gen: vented, poorly responsive Heart: RRR Lung: scattered rhonchi Abd: soft, nontender Ext: + edema, anasarca Sacral Decubitus Ulcer Infection Gram Positive Bacteremia Septic Shock ESRD on HD Chronic Respiratory Failure Chronic Hypotension h/o CVA Anoxic Encephalopathy Anemia Thrombocytopenia - taper off pressors - midodrine - continue antibiotics per ID - wound care - continue steroids - HD per renal - poor prognosis for any meaningful recovery, approaching medical futility, recommend palliative care - DVT/GI prophylaxis Tre MARINA MD
[2016-12-02] MEDS: KCL 10 MEQ IVPB 100 ML IVPB SCH ×2 (16:54→18:11)
--- NOTE | 2016-12-02 18:27 | PN ---
Teaching Attending Note Name of Resident: Ros Dias ATTENDING PHYSICIAN STATEMENT I saw and evaluated the patient. I reviewed the resident's note and discussed the case with the resident. I agree with the resident's findings and plan as documented. SUBJECTIVE: no events over night OBJECTIVE: NAD , not responsive. Pupils, round L > R . no facial droop , MMM, trach/vent. Lungs: b/l rales anteriorly Ext : 3+ pitting edema over legs and arms. Abd: soft, NT, ND , NL BS , 3+ pitting hard edema Skin:wounds were not examined ASSESSMENT AND PLAN: 76 y/o man with h/o Anoxic brain injury, chronic hypotension , HLP, COPD , chronic resp failure s/p trach, DM , hypothyroidism and other medical problems , who was brought from a NH due to coffee ground emesis .He was found to be in septic shock. 1-Septic shock: likely source is the decub ulcer ? PNA . - Cont zosyn and tigacyclin . - cont steroid ( decrease to 50 q8H ) support and midodrine. 2- Upper GI bleed : resolved. ? stress ulcer, VS PUD - PPI 3- DIC: due to severe sepsis. blood count monitoring no need for transfusion transfuse PRBC for HB < 7, fibrinogen < 100 4- dysfunctional peg seen by GI and Sx. will discuss further with GI Clinimix for now 5- ESRD: - cont HD. 6- Hypoglycemia , resolved . monitor on clinimix 7- Sinus bradycardia : with episodes of PAF. - not a candidate for BB or AC at this point Dispo : OC
[2016-12-03] MEDS: HYDROCORTISONE SOD SUCCINATE 100 MG/2 ML VIAL IVPB SCH ×3 (03:16→18:22)
[2016-12-03] MEDS: PIPERACILLIN/TAZOB 2.25 GM 50 ML IVPB SCH ×3 (03:18→18:28)
[2016-12-03] MEDS: TIGECYCLINE 50 MG in DEXTROSE 5%-WATER - 100 ML IVPB SCH ×2 (06:38→17:20)
[2016-12-03] MEDS: INSULIN SLIDING SCALE (NOVOLOG) 1 VIAL SQ SCH ×4 (06:47→23:00)
[2016-12-03] MEDS: AMINO ACIDS/PROTEIN HYDROLYS 30 ML LIQUID.PKT PO SCH ×2 (08:00→17:02)
[2016-12-03] MEDS: BANATROL PLUS POWDER PACKET PEG SCH ×3 (08:02→21:16)
[2016-12-03 08:31] LABS: MCH 31.3 pg (25.7-33.7); MCHC 33.1 g/dl (32.0-35.9); MEAN CELL VOLUME 94.5 fl (80-96); MEAN PLT VOLUME 11.3 fl (7.5-11.1); PLATELET COUNT 30 K/MM3 (134-434); RDW 24.9 % (11.9-15.9); WHITE BLOOD COUNT 7.9 K/mm3 (4.0-10.0)
[2016-12-03] MEDS ORDERED: EPOETIN ALFA 2,000 UNITS/1 ML VIAL IVPUSH ONE (09:00)
[2016-12-03] MEDS: ALBUMIN HUMAN 25% 12.5 GM/50 ML VIAL IVPB SCH ×4 (09:00→10:30)
[2016-12-03 09:05] LABS: CALCIUM 7.3 mg/dL (8.5-10.1); COCKROFT - GAULT 46.95; CREATININE 1.7 mg/dL (0.7-1.3); MAGNESIUM 1.9 mg/dL (1.8-2.4); PHOSPHOROUS 4.2 mg/dL (2.5-4.9)
[2016-12-03] MEDS: NAPH,MB-DB/K PH,MBDB POWDER PACKET PO SCH ×2 (10:00→21:19)
[2016-12-03] MEDS: MIDODRINE HCL 5 MG TABLET PO SCH ×2 (10:00→17:03)
[2016-12-03 11:23] LABS: CREATININE 0.8 mg/dL (0.7-1.3)
[2016-12-03] MEDS: PANTOPRAZOLE SODIUM 100 ML IVPB SCH (12:18)
--- NOTE | 2016-12-03 12:18 | PN ---
Progress Note (short form) - Note Progress Note: RENAL Pt seen and examined noted to be seizing. Had upward and left lateral gaze Last Vital Signs Temp Pulse Resp BP Pulse Ox 97.1 F L 77 13 107/70 99 12/03/16 10:00 12/03/16 10:27 12/03/16 10:27 12/03/16 10:27 12/03/16 11:44 trached lungs bilateral air entry cvs s1s2 rr abd soft ext +edema neuro a+ox3 CBC, BMP 12/03/16 07:20 12/03/16 10:10 Current Medications Generic Name Dose Route Start Last Admin Trade Name Freq PRN Reason Stop Dose Admin Amino Acids 30 ml 11/29/16 17:30 12/02/16 17:00 Prosource No Carb Liquid Pkt PO Not Given BID@0800,1730 STEVEN Bacitracin 1 applic 11/30/16 10:00 12/02/16 13:37 Bacitracin - TP 1 applic DAILY STEVEN Administration Collagenase 1 applic 11/30/16 10:00 12/02/16 13:37 Santyl - TP 1 applic DAILY STEVEN Administration Hydrocortisone Sodium Succinate 50 mg 12/03/16 02:00 12/03/16 03:16 Solu-Cortef - IVPB 50 mg Q8H-IV STEVEN Administration Dopamine HCl/Dextrose 250 mls @ 16.542 mls/hr 11/29/16 15:52 12/02/16 16:07 Dopamine 400 Mg/D5w - IVPB Not Given TITR STEVEN Protocol 5 MCG/KG/MIN Pantoprazole Sodium 100 mls @ 200 mls/hr 11/30/16 10:00 12/02/16 13:08 Protonix 40mg Ivpb (Pre-Docked) IVPB 200 mls/hr DAILY STEVEN Administration Tigecycline 50 mg/ Dextrose 100 mls @ 200 mls/hr 11/29/16 18:00 12/03/16 06:38 IVPB 200 mls/hr BID@0600,1800 STEVEN Administration Piperacillin Sod/Tazobactam Sod 50 mls @ 100 mls/hr 11/29/16 18:00 12/03/16 03: 18 Zosyn 2.25gm Ivpb (Pre-Docked) IVPB 100 mls/hr Q8H-IV STEVEN Administration Protocol Amino Acids 1,000 mls @ 30 mls/hr 11/29/16 19:00 12/02/16 23:28 Clinimix - IV 30 mls/hr Q24H STEVEN Administration Insulin Aspart 1 vial 11/29/16 18:00 12/03/16 06:47 Novolog Vial Sliding Scale - SQ 2 units Q6HPO STEVEN Administration Protocol Ketoconazole 1 applic 11/30/16 10:00 12/01/16 10:59 Nizoral 2% Cream - TP 1 applic DAILY STEVEN Administration Midodrine 5 mg 11/29/16 18:00 12/02/16 17:02 Proamatine - PO Not Given BID-MID STEVEN Potassium Phos/Sodium Phos 1 packet 11/29/16 22:00 12/02/16 22:21 Phos-Nak Packet - PO Not Given BID STEVEN Impression 1. ESRD 2. hypotension 3. chronic respiratory failure 4. sepsis 5. Anemia 6. GI bleed 7. CVA 8. DM 9. Hypothyroidism 10. pancytopenia 11. seizures Plan - should be on hospice. - will be dialyzed for fluid removal - vent support MV
--- NOTE | 2016-12-03 12:26 | PN ---
Progress Note (short form) - Note Progress Note: Subjective: can't obtain hx as pt is unresponsive . no events over night Objective: Vital Signs: Last Vital Signs Temp Pulse Resp BP Pulse Ox 97.1 F L 77 13 107/70 99 12/03/16 10:00 12/03/16 10:27 12/03/16 10:27 12/03/16 10:27 12/03/16 11:44 Labs: Laboratory Results - last 24 hr 12/02/16 12/02/16 12/03/16 16:51 23:31 06:39 WBC RBC Hgb Hct MCV MCHC RDW Plt Count MPV Sodium Potassium Chloride Carbon Dioxide Anion Gap BUN Creatinine POC Glucometer 151 139 177 Random Glucose Calcium Phosphorus Magnesium 12/03/16 12/03/16 12/03/16 07:20 07:20 10:10 WBC 7.9 RBC 2.64 L Hgb 8.3 L Hct 25.0 L MCV 94.5 MCHC 33.1 RDW 24.9 H Plt Count 30 L* MPV 11.3 H Sodium 144 Potassium 3.9 D Chloride 106 Carbon Dioxide 24 Anion Gap 14 BUN 53 H 22 H D Creatinine 1.7 H 0.8 POC Glucometer Random Glucose 156 H Calcium 7.3 L Phosphorus 4.2 D Magnesium 1.9 12/03/16 10:10 WBC RBC Hgb Hct MCV MCHC RDW Plt Count MPV Sodium Potassium Chloride Carbon Dioxide Anion Gap BUN Creatinine Cancelled POC Glucometer Random Glucose Calcium Phosphorus Magnesium Current Medications Generic Name Dose Route Start Last Admin Trade Name Freq PRN Reason Stop Dose Admin Amino Acids 30 ml 11/29/16 17:30 12/03/16 08:00 Prosource No Carb Liquid Pkt PO Not Given BID@0800,1730 STEVEN Bacitracin 1 applic 11/30/16 10:00 12/02/16 13:37 Bacitracin - TP 1 applic DAILY STEVEN Administration Collagenase 1 applic 11/30/16 10:00 12/02/16 13:37 Santyl - TP 1 applic DAILY STEVEN Administration Hydrocortisone Sodium Succinate 50 mg 12/03/16 02:00 12/03/16 03:16 Solu-Cortef - IVPB 50 mg Q8H-IV STEVEN Administration Dopamine HCl/Dextrose 250 mls @ 16.542 mls/hr 11/29/16 15:52 12/02/16 16:07 Dopamine 400 Mg/D5w - IVPB Not Given TITR STEVEN Protocol 5 MCG/KG/MIN Pantoprazole Sodium 100 mls @ 200 mls/hr 11/30/16 10:00 12/03/16 12:18 Protonix 40mg Ivpb (Pre-Docked) IVPB 200 mls/hr DAILY STEVEN Administration Tigecycline 50 mg/ Dextrose 100 mls @ 200 mls/hr 11/29/16 18:00 12/03/16 06:38 IVPB 200 mls/hr BID@0600,1800 STEVEN Administration Piperacillin Sod/Tazobactam Sod 50 mls @ 100 mls/hr 11/29/16 18:00 12/03/16 12: 17 Zosyn 2.25gm Ivpb (Pre-Docked) IVPB 100 mls/hr Q8H-IV STEVEN Administration Protocol Amino Acids 1,000 mls @ 30 mls/hr 11/29/16 19:00 12/02/16 23:28 Clinimix - IV 30 mls/hr Q24H STEVEN Administration Insulin Aspart 1 vial 11/29/16 18:00 12/03/16 06:47 Novolog Vial Sliding Scale - SQ 2 units Q6HPO STEVEN Administration Protocol Ketoconazole 1 applic 11/30/16 10:00 12/01/16 10:59 Nizoral 2% Cream - TP 1 applic DAILY STEVEN Administration Midodrine 5 mg 11/29/16 18:00 12/03/16 10:00 Proamatine - PO Not Given BID-MID STEVEN Potassium Phos/Sodium Phos 1 packet 11/29/16 22:00 12/03/16 10:00 Phos-Nak Packet - PO Not Given BID STEVEN Physical exam : NAD , not responsive. upon entering the room , the pt eyes were deviated to L and twitching with twitching of his mouth . This lasted fro few seconds then face relaxed . Pupils, round L > R MMM, trach/vent. Lungs: b/l rales anteriorly Ext : 3+ pitting edema over legs and arms. Abd: soft, NT, ND , NL BS , 3+ pitting hard edema Skin:wounds were not examined ASSESSMENT AND PLAN: 76 y/o man with h/o Anoxic brain injury, chronic hypotension , HLP, COPD , chronic resp failure s/p trach, DM , hypothyroidism and other medical problems , who was brought from a NH due to coffee ground emesis .He was found to be in septic shock. 1-Septic shock: likely source is the decub ulcer ? PNA . - Cont zosyn and tigacyclin , pending ID recommendations - Cont steroid support ( day 1 on 50 q8H ) and midodrine 2- Possible Seizure activity: due to his anoxic brain injury . will start Keppra. dose adjusted for his renal ( 500 mg daily, with supplemental doses of 250 after HD ) 3- DIC: due to severe sepsis. blood count monitoring periodically transfuse PRBC for HB < 7, and fibrinogen if < 100 4- Dysfunctional peg . can't use . Seen by GI and Sx. Clinimix for now 5- ESRD: - cont HD. 6- Sinus bradycardia : with episodes of PAF. - not a candidate for BB or AC at this point Dispo : HLOC Visit type - Emergency Visit Emergency Visit: Yes ED Registration Date: 11/12/16 Care time: The patient presented to the Emergency Department on the above date and was hospitalized for further evaluation of their emergent condition. - New Patient This patient is new to me today: No - Critical Care Critical Care patient: No
--- NOTE | 2016-12-03 13:35 | PN ---
Progress Note, Physician History of Present Illness: continues to do poorly no new events events noted from yesterday seizures yesterday now has suffered damage to lips blood noted on the lips - Current Medication List Current Medications: Active Medications Amino Acids (Prosource No Carb Liquid Pkt) 30 ml PO BID@0800,1730 [facility] Last Admin: 12/03/16 08:00 Dose: Not Given Bacitracin (Bacitracin -) 1 applic TP DAILY STEVEN Last Admin: 12/02/16 13:37 Dose: 1 applic Collagenase (Santyl -) 1 applic TP DAILY STEVEN Last Admin: 12/02/16 13:37 Dose: 1 applic Hydrocortisone Sodium Succinate (Solu-Cortef -) 50 mg IVPB Q8H-IV STEVEN Last Admin: 12/03/16 03:16 Dose: 50 mg Dopamine HCl/Dextrose (Dopamine 400 Mg/D5w -) 250 mls @ 16.542 mls/hr IVPB TITR STEVEN; 5 MCG/KG/MIN PRN Reason: Protocol Last Admin: 12/02/16 16:07 Dose: Not Given Pantoprazole Sodium (Protonix 40mg Ivpb (Pre-Docked)) 100 mls @ 200 mls/hr IVPB DAILY [facility] Last Admin: 12/03/16 12:18 Dose: 200 mls/hr Tigecycline 50 mg/ Dextrose 100 mls @ 200 mls/hr IVPB BID@0600,1800 [facility] Last Admin: 12/03/16 06:38 Dose: 200 mls/hr Piperacillin Sod/Tazobactam Sod (Zosyn 2.25gm Ivpb (Pre-Docked)) 50 mls @ 100 mls/hr IVPB Q8H-IV STEVEN PRN Reason: Protocol Last Admin: 12/03/16 12:17 Dose: 100 mls/hr Amino Acids (Clinimix -) 1,000 mls @ 30 mls/hr IV Q24H [facility] Last Admin: 12/02/16 23:28 Dose: 30 mls/hr Insulin Aspart (Novolog Vial Sliding Scale -) 1 vial SQ Q6HPO STEVEN PRN Reason: Protocol Last Admin: 12/03/16 06:47 Dose: 2 units Ketoconazole (Nizoral 2% Cream -) 1 applic TP DAILY [facility] Last Admin: 12/01/16 10:59 Dose: 1 applic Levetiracetam (Keppra Injection -) 500 mg IVPB DAILY [facility] Midodrine (Proamatine -) 5 mg PO BID-MID STEVEN Last Admin: 12/03/16 10:00 Dose: Not Given Potassium Phos/Sodium Phos (Phos-Nak Packet -) 1 packet PO BID [facility] Last Admin: 12/03/16 10:00 Dose: Not Given - Objective Vital Signs: Vital Signs Temperature 97.1 F L 12/03/16 10:00 Pulse Rate 77 12/03/16 10:27 Respiratory Rate 13 12/03/16 10:27 Blood Pressure 107/70 12/03/16 10:27 O2 Sat by Pulse Oximetry (%) 99 12/03/16 11:44 Constitutional: Yes: No Distress, Calm Cardiovascular: Yes: Regular Rate and Rhythm Respiratory: Yes: Mechanically Ventilated, Other Gastrointestinal: Yes: Normal Bowel Sounds, Soft, Other (peg in place) Musculoskeletal: Yes: Other Extremities: Yes: Other Wound/Incision: Yes: Draining, Other (multiple ulcers) Neurological: Yes: Other (open eyes) Psychiatric: Yes: Other Labs: CBC, BMP 12/03/16 07:20 12/03/16 10:10 INR, PTT INR 1.87 (0.82-1.09) H 12/02/16 06:30 Fibrinogen 176.0 mg/dL (238-498) L 12/02/16 06:30 Assessment/Plan decubitus ulcer multiple pressure ulcer infected peg tube site septic shock lactic acidosis hypotension hypothermia esrd cva gram positive bacteremia rash plan continue current mgmt continue abx patients prognosis is poor continue maintaining body temperature awaiting for final plan conradcole osorio tomorrow
[2016-12-03] MEDS ORDERED: PT OWN MED DRAWER 7, Y5N ONE (13:45)
[2016-12-03] MEDS ORDERED: INSULIN (NOVOLOG) ASPART 100 UNITS/ML 10ML VIAL ONE (14:05)
[2016-12-03] MEDS: COLLAGENASE CLOSTRIDIUM HIST. 30 GRAMS TUBE TP SCH (14:07)
[2016-12-03] MEDS: KETOCONAZOLE 2% CREAM - 60GM TUBE TP SCH (14:08)
[2016-12-03] MEDS: BACITRACIN 30 GM TUBE TOPICAL OINTMENT TP SCH (14:08)
[2016-12-03] MEDS: levETIRAcetam 500 MG/5 ML INJECTION VIAL IVPB SCH (14:31)
--- NOTE | 2016-12-03 14:38 | PN ---
Progress Note (short form) - Note Progress Note: PULMONARY MVV 12/450/45 Had seizure earlier as per nurse Gen: vented, poorly responsive Heart: RRR Lung: scattered rhonchi Abd: soft, nontender Ext: + edema, anasarca Sacral Decubitus Ulcer Infection Gram Positive Bacteremia Septic Shock ESRD on HD Chronic Respiratory Failure Chronic Hypotension h/o CVA Anoxic Encephalopathy Anemia Thrombocytopenia - taper off pressors - midodrine - continue antibiotics per ID - wound care - continue steroids - HD per renal - poor prognosis for any meaningful recovery, approaching medical futility, recommend palliative care - DVT/GI prophylaxis Tre MARINA MD
[2016-12-03] MEDS: DOPAMINE 400 MG/D5W - 250 ML IVPB SCH (18:28)
[2016-12-03] MEDS: AMINO ACIDS 4.25%/D5W 1,000 ML IV SCH (21:15)
[2016-12-04] MEDS: HYDROCORTISONE SOD SUCCINATE 100 MG/2 ML VIAL IVPB SCH ×3 (02:11→17:41)
[2016-12-04] MEDS: PIPERACILLIN/TAZOB 2.25 GM 50 ML IVPB SCH ×2 (02:13→11:08)
[2016-12-04] MEDS: INSULIN SLIDING SCALE (NOVOLOG) 1 VIAL SQ SCH ×4 (06:47→23:20)
[2016-12-04] MEDS: BANATROL PLUS POWDER PACKET PEG SCH ×3 (06:47→23:22)
[2016-12-04] MEDS: TIGECYCLINE 50 MG in DEXTROSE 5%-WATER - 100 ML IVPB SCH ×2 (06:47→17:41)
[2016-12-04] MEDS ORDERED: PT OWN MED DRAWER 7, Y5N ONE (10:56)
[2016-12-04] MEDS: NAPH,MB-DB/K PH,MBDB POWDER PACKET PO SCH ×2 (11:06→23:06)
[2016-12-04] MEDS: MIDODRINE HCL 5 MG TABLET PO SCH (11:06)
[2016-12-04] MEDS: AMINO ACIDS/PROTEIN HYDROLYS 30 ML LIQUID.PKT PO SCH ×2 (11:06→17:29)
[2016-12-04] MEDS: PANTOPRAZOLE SODIUM 100 ML IVPB SCH (11:07)
[2016-12-04] MEDS: levETIRAcetam 500 MG/5 ML INJECTION VIAL IVPB SCH (11:07)
[2016-12-04] MEDS: COLLAGENASE CLOSTRIDIUM HIST. 30 GRAMS TUBE TP SCH (11:08)
[2016-12-04] MEDS: KETOCONAZOLE 2% CREAM - 60GM TUBE TP SCH (11:08)
[2016-12-04] MEDS: BACITRACIN 30 GM TUBE TOPICAL OINTMENT TP SCH (11:08)
--- NOTE | 2016-12-04 12:31 | PN ---
Progress Note (short form) - Note Progress Note: RENAL Pt seen and examined no longer seizing appears comfortable Last Vital Signs Temp Pulse Resp BP Pulse Ox 97.3 F L 78 12 100/56 96 12/04/16 08:00 12/04/16 10:05 12/04/16 10:05 12/04/16 08:00 12/04/16 11:43 trached lungs bilateral air entry cvs s1s2 rr abd soft ext +edema neuro a+ox3 CBC, BMP 12/03/16 07:20 12/03/16 10:10 Current Medications Generic Name Dose Route Start Last Admin Trade Name Freq PRN Reason Stop Dose Admin Amino Acids 30 ml 11/29/16 17:30 12/04/16 11:06 Prosource No Carb Liquid Pkt PO Not Given BID@0800,1730 STEVEN Bacitracin 1 applic 11/30/16 10:00 12/04/16 11:08 Bacitracin - TP 1 applic DAILY STEVEN Administration Collagenase 1 applic 11/30/16 10:00 12/04/16 11:08 Santyl - TP 1 applic DAILY STEVEN Administration Hydrocortisone Sodium Succinate 50 mg 12/03/16 02:00 12/04/16 11:07 Solu-Cortef - IVPB 50 mg Q8H-IV STEVEN Administration Dopamine HCl/Dextrose 250 mls @ 16.542 mls/hr 11/29/16 15:52 12/03/16 18:28 Dopamine 400 Mg/D5w - IVPB Not Given TITR STEVEN Protocol 5 MCG/KG/MIN Pantoprazole Sodium 100 mls @ 200 mls/hr 11/30/16 10:00 12/04/16 11:07 Protonix 40mg Ivpb (Pre-Docked) IVPB 200 mls/hr DAILY STEVEN Administration Tigecycline 50 mg/ Dextrose 100 mls @ 200 mls/hr 11/29/16 18:00 12/04/16 06:47 IVPB 200 mls/hr BID@0600,1800 STEVEN Administration Piperacillin Sod/Tazobactam Sod 50 mls @ 100 mls/hr 11/29/16 18:00 12/04/16 11: 08 Zosyn 2.25gm Ivpb (Pre-Docked) IVPB 100 mls/hr Q8H-IV STEVEN Administration Protocol Amino Acids 1,000 mls @ 30 mls/hr 11/29/16 19:00 12/03/16 21:15 Clinimix - IV 30 mls/hr Q24H STEVEN Administration Insulin Aspart 1 vial 11/29/16 18:00 12/04/16 06:47 Novolog Vial Sliding Scale - SQ Not Given Q6HPO STEVEN Protocol Ketoconazole 1 applic 11/30/16 10:00 12/04/16 11:08 Nizoral 2% Cream - TP 1 applic DAILY STEVEN Administration Levetiracetam 500 mg 12/03/16 12:45 12/04/16 11:07 Keppra Injection - IVPB 500 mg DAILY STEVEN Administration Midodrine 5 mg 11/29/16 18:00 12/04/16 11:06 Proamatine - PO Not Given BID-MID STEVEN Potassium Phos/Sodium Phos 1 packet 11/29/16 22:00 12/04/16 11:06 Phos-Nak Packet - PO Not Given BID STEVEN Impression 1. ESRD 2. hypotension 3. chronic respiratory failure 4. sepsis 5. Anemia 6. GI bleed 7. CVA 8. DM 9. Hypothyroidism 10. pancytopenia 11. seizures Plan - should be on hospice. - antibiotics and wound care - vent support MV
--- NOTE | 2016-12-04 14:43 | PN ---
Progress Note (short form) - Note Progress Note: Subjective: can't obtain hx as pt is unresponsive . no events over night Objective: Vital Signs: Last Vital Signs Temp Pulse Resp BP Pulse Ox 97.3 F L 78 12 100/56 96 12/04/16 08:00 12/04/16 10:05 12/04/16 14:09 12/04/16 08:00 12/04/16 11:43 Labs: Laboratory Results - last 24 hr 12/03/16 12/03/16 12/04/16 16:59 23:05 06:45 POC Glucometer 164 134 134 12/04/16 11:25 POC Glucometer 166 PE NAD , not responsive. upon entering the room , the pt face was twitching , and stopped after 5 seconds Pupils, round L > R MMM, trach/vent. Lungs: b/l rales anteriorly Ext : 3+ pitting edema over legs and arms. Abd: soft, NT, ND , NL BS , 3+ pitting hard edema Skin:wounds were not examined ASSESSMENT AND PLAN: 76 y/o man with h/o Anoxic brain injury, chronic hypotension , HLP, COPD , chronic resp failure s/p trach, DM , hypothyroidism and other medical problems , who was brought from a NH due to coffee ground emesis .He was found to be in septic shock. 1-Septic shock: likely source is the decub ulcer ? PNA . - Cont zosyn and tigacyclin , pending ID recommendations - Cont steroid support ( day 2 on 50 q8H ) , will taper further on Monday - Has not been getting midodrine for few days since not using PEG , will stop 2- Possible Seizure activity: due to his anoxic brain injury , hypothermia and current illness. Keppra day 2 . dose adjusted for his renal ( 500 mg daily, with supplemental doses of 250 after HD ) If cont to have seizure activity by tomorrow , will increase dose Can't do MRI as vented 3- DIC: due to severe sepsis. blood count monitoring periodically transfuse PRBC for HB < 7, and fibrinogen if < 100 4- Dysfunctional peg . can't use . D/W Dr. Nicolas. to perform Gastrografin study . if in place , can use tube Clinimix for now 5- ESRD: - cont HD. 6- Sinus bradycardia : with episodes of PAF. - not a candidate for BB or AC at this point Dispo : HLOC Agree with consultants that pt should be hospice , but family has been declining . Cont to be full code Palliative care and Ethics involved. Visit type - Emergency Visit Emergency Visit: Yes ED Registration Date: 11/12/16 Care time: The patient presented to the Emergency Department on the above date and was hospitalized for further evaluation of their emergent condition. - New Patient This patient is new to me today: No - Critical Care Critical Care patient: No
--- NOTE | 2016-12-04 16:19 | PN ---
Progress Note, Physician History of Present Illness: continues to do poorly no new events events noted from yesterday seizures stable wound draining less - Current Medication List Current Medications: Active Medications Amino Acids (Prosource No Carb Liquid Pkt) 30 ml PO BID@0800,1730 [facility] Last Admin: 12/04/16 11:06 Dose: Not Given Bacitracin (Bacitracin -) 1 applic TP DAILY [facility] Last Admin: 12/04/16 11:08 Dose: 1 applic Collagenase (Santyl -) 1 applic TP DAILY [facility] Last Admin: 12/04/16 11:08 Dose: 1 applic Hydrocortisone Sodium Succinate (Solu-Cortef -) 50 mg IVPB Q8H-IV [facility] Last Admin: 12/04/16 11:07 Dose: 50 mg Pantoprazole Sodium (Protonix 40mg Ivpb (Pre-Docked)) 100 mls @ 200 mls/hr IVPB DAILY [facility] Last Admin: 12/04/16 11:07 Dose: 200 mls/hr Tigecycline 50 mg/ Dextrose 100 mls @ 200 mls/hr IVPB BID@0600,1800 [facility] Last Admin: 12/04/16 06:47 Dose: 200 mls/hr Amino Acids (Clinimix -) 1,000 mls @ 30 mls/hr IV Q24H [facility] Last Admin: 12/03/16 21:15 Dose: 30 mls/hr Insulin Aspart (Novolog Vial Sliding Scale -) 1 vial SQ Q6HPO [facility] PRN Reason: Protocol Last Admin: 12/04/16 15:31 Dose: Not Given Ketoconazole (Nizoral 2% Cream -) 1 applic TP DAILY [facility] Last Admin: 12/04/16 11:08 Dose: 1 applic Levetiracetam (Keppra Injection -) 500 mg IVPB DAILY [facility] Last Admin: 12/04/16 11:07 Dose: 500 mg Potassium Phos/Sodium Phos (Phos-Nak Packet -) 1 packet PO BID [facility] Last Admin: 12/04/16 11:06 Dose: Not Given - Objective Vital Signs: Vital Signs Temperature 94.8 F L 12/04/16 14:56 Pulse Rate 74 12/04/16 14:56 Respiratory Rate 18 12/04/16 14:56 Blood Pressure 112/69 12/04/16 14:56 O2 Sat by Pulse Oximetry (%) 96 12/04/16 11:43 Constitutional: Yes: Calm Respiratory: Yes: Mechanically Ventilated, Other (trach) Gastrointestinal: Yes: Normal Bowel Sounds, Soft, Other (peg tube in place) Musculoskeletal: Yes: Other Extremities: Yes: Other Neurological: Yes: Other (opens eyes) Labs: CBC, BMP 12/03/16 07:20 12/03/16 10:10 INR, PTT INR 1.87 (0.82-1.09) H 12/02/16 06:30 Fibrinogen 176.0 mg/dL (238-498) L 12/02/16 06:30 Assessment/Plan decubitus ulcer multiple pressure ulcer infected peg tube site septic shock lactic acidosis hypotension hypothermia esrd cva gram positive bacteremia rash plan continue current mgmt continue abx patients prognosis is poor continue maintaining body temperature awaiting for final plan stopped laurensyn
[2016-12-04] MEDS: AMINO ACIDS 4.25%/D5W 1,000 ML IV SCH (23:06)
[2016-12-05] MEDS: HYDROCORTISONE SOD SUCCINATE 100 MG/2 ML VIAL IVPB SCH ×3 (02:50→21:59)
[2016-12-05] MEDS: TIGECYCLINE 50 MG in DEXTROSE 5%-WATER - 100 ML IVPB SCH ×2 (06:34→18:22)
[2016-12-05] MEDS: INSULIN SLIDING SCALE (NOVOLOG) 1 VIAL SQ SCH ×3 (06:44→18:22)
[2016-12-05] MEDS: BANATROL PLUS POWDER PACKET PEG SCH ×3 (06:54→22:04)
[2016-12-05 08:55] LABS: BASOPHIL 0.2 % (0-2.0); MCH 31.2 pg (25.7-33.7); MEAN CELL VOLUME 94.6 fl (80-96); MEAN PLT VOLUME 9.4 fl (7.5-11.1); NEUTROPHILS 92.1 % (42.8-82.8); RDW 25.2 % (11.9-15.9); WHITE BLOOD COUNT 3.8 K/mm3 (4.0-10.0)
[2016-12-05 09:08] LABS: CALCIUM 7.3 mg/dL (8.5-10.1); COCKROFT - GAULT 42.01; CREATININE 1.9 mg/dL (0.7-1.3)
[2016-12-05 09:13] LABS: PLATELET COUNT 17 K/MM3 (134-434)
[2016-12-05] MEDS: PANTOPRAZOLE SODIUM 100 ML IVPB SCH (10:00)
[2016-12-05] MEDS: levETIRAcetam 500 MG/5 ML INJECTION VIAL IVPB SCH (11:21)
[2016-12-05] MEDS: BACITRACIN 30 GM TUBE TOPICAL OINTMENT TP SCH (11:22)
[2016-12-05] MEDS: KCL 10 MEQ IVPB 100 ML IVPB SCH ×4 (11:59→22:03)
[2016-12-05 12:01] LABS: ANISOCYTOSIS 2+; HYPOCHROMIA 1+
[2016-12-05] MEDS: COLLAGENASE CLOSTRIDIUM HIST. 30 GRAMS TUBE TP SCH (12:03)
[2016-12-05] MEDS: KETOCONAZOLE 2% CREAM - 60GM TUBE TP SCH (12:03)
[2016-12-05] MEDS: AMINO ACIDS/PROTEIN HYDROLYS 30 ML LIQUID.PKT PO SCH ×2 (12:03→18:22)
[2016-12-05] MEDS: NAPH,MB-DB/K PH,MBDB POWDER PACKET PO SCH ×2 (12:03→22:03)
--- NOTE | 2016-12-05 13:02 | PN ---
Progress Note, Physician History of Present Illness: Pt seen and examined at bedside. He remains in the medical ocampo. Pt remains vented. - Current Medication List Current Medications: Active Medications Amino Acids (Prosource No Carb Liquid Pkt) 30 ml PO BID@0800,1730 [facility] Last Admin: 12/05/16 12:03 Dose: Not Given Bacitracin (Bacitracin -) 1 applic TP DAILY [facility] Last Admin: 12/05/16 11:22 Dose: 1 applic Collagenase (Santyl -) 1 applic TP DAILY [facility] Last Admin: 12/05/16 12:03 Dose: 1 applic Hydrocortisone Sodium Succinate (Solu-Cortef -) 50 mg IVPB Q8H-IV [facility] Last Admin: 12/05/16 11:22 Dose: 50 mg Pantoprazole Sodium (Protonix 40mg Ivpb (Pre-Docked)) 100 mls @ 200 mls/hr IVPB DAILY [facility] Last Admin: 12/05/16 10:00 Dose: 200 mls/hr Tigecycline 50 mg/ Dextrose 100 mls @ 200 mls/hr IVPB BID@0600,1800 [facility] Last Admin: 12/05/16 06:34 Dose: 200 mls/hr Amino Acids (Clinimix -) 1,000 mls @ 30 mls/hr IV Q24H [facility] Last Admin: 12/04/16 23:06 Dose: 30 mls/hr Potassium Chloride (Potassium Chloride 10 Meq Premix Ivpb -) 100 mls @ 100 mls/ hr IVPB Q60M [facility] Stop: 12/05/16 14:44 Last Admin: 12/05/16 11:59 Dose: 100 mls/hr Insulin Aspart (Novolog Vial Sliding Scale -) 1 vial SQ Q6HPO [facility] PRN Reason: Protocol Last Admin: 12/05/16 06:44 Dose: Not Given Ketoconazole (Nizoral 2% Cream -) 1 applic TP DAILY [facility] Last Admin: 12/05/16 12:03 Dose: 1 applic Levetiracetam (Keppra Injection -) 500 mg IVPB DAILY [facility] Last Admin: 12/05/16 11:21 Dose: 500 mg Potassium Phos/Sodium Phos (Phos-Nak Packet -) 1 packet PO BID [facility] Last Admin: 12/05/16 12:03 Dose: Not Given - Objective Vital Signs: Vital Signs Temperature 97.0 F L 12/05/16 09:00 Pulse Rate 69 12/05/16 09:00 Respiratory Rate 12 12/05/16 09:00 Blood Pressure 111/60 12/05/16 09:00 O2 Sat by Pulse Oximetry (%) 99 12/05/16 00:00 Constitutional: Yes: Calm HENT: Yes: Other (trache) Cardiovascular: Yes: S1, S2 Respiratory: Yes: Mechanically Ventilated Gastrointestinal: Yes: Soft, Other (peg) Genitourinary: Yes: Anuria, Incontinence Musculoskeletal: Yes: Muscle Weakness Edema: Yes Edema: LLE: 2+, RLE: 2+ Neurological: Yes: Lethargy Labs: CBC, BMP 12/05/16 07:10 12/05/16 07:10 INR, PTT INR 1.87 (0.82-1.09) H 12/02/16 06:30 Fibrinogen 176.0 mg/dL (238-498) L 12/02/16 06:30 Problem List - Problems (1) GORDON (acute kidney injury) Code(s): N17.9 - ACUTE KIDNEY FAILURE, UNSPECIFIED (2) Anasarca Code(s): R60.1 - GENERALIZED EDEMA (3) Anemia Code(s): D64.9 - ANEMIA, UNSPECIFIED (4) CHF (congestive heart failure) Code(s): I50.9 - HEART FAILURE, UNSPECIFIED (5) CKD (chronic kidney disease) Code(s): N18.9 - CHRONIC KIDNEY DISEASE, UNSPECIFIED (6) Fluid overload Code(s): E87.70 - FLUID OVERLOAD, UNSPECIFIED (7) History of CVA (cerebrovascular accident) Code(s): Z86.73 - PRSNL HX OF TIA (TIA), AND CEREB INFRC W/O RESID DEFICITS Assessment/Plan Current Medications Generic Name Dose Route Start Last Admin Trade Name Freq PRN Reason Stop Dose Admin Amino Acids 30 ml 11/29/16 17:30 12/05/16 12:03 Prosource No Carb Liquid Pkt PO Not Given BID@0800,1730 STEVEN Bacitracin 1 applic 11/30/16 10:00 12/05/16 11:22 Bacitracin - TP 1 applic DAILY STEVEN Administration Collagenase 1 applic 11/30/16 10:00 12/05/16 12:03 Santyl - TP 1 applic DAILY STEVEN Administration Hydrocortisone Sodium Succinate 50 mg 12/03/16 02:00 12/05/16 11:22 Solu-Cortef - IVPB 50 mg Q8H-IV STEVEN Administration Pantoprazole Sodium 100 mls @ 200 mls/hr 11/30/16 10:00 12/05/16 10:00 Protonix 40mg Ivpb (Pre-Docked) IVPB 200 mls/hr DAILY STEVEN Administration Tigecycline 50 mg/ Dextrose 100 mls @ 200 mls/hr 11/29/16 18:00 12/05/16 06:34 IVPB 200 mls/hr BID@0600,1800 STEVEN Administration Amino Acids 1,000 mls @ 30 mls/hr 11/29/16 19:00 12/04/16 23:06 Clinimix - IV 30 mls/hr Q24H STEVEN Administration Potassium Chloride 100 mls @ 100 mls/hr 12/05/16 11:45 12/05/16 11:59 Potassium Chloride 10 Meq Premix Ivpb - IVPB 12/05/16 14:44 100 mls/hr Q60M STEVEN Administration Insulin Aspart 1 vial 11/29/16 18:00 12/05/16 06:44 Novolog Vial Sliding Scale - SQ Not Given Q6HPO [facility] Protocol Ketoconazole 1 applic 11/30/16 10:00 12/05/16 12:03 Nizoral 2% Cream - TP 1 applic DAILY STEVEN Administration Levetiracetam 500 mg 12/03/16 12:45 12/05/16 11:21 Keppra Injection - IVPB 500 mg DAILY STEVEN Administration Potassium Phos/Sodium Phos 1 packet 11/29/16 22:00 12/05/16 12:03 Phos-Nak Packet - PO Not Given BID STEVEN Impression 1. ESRD 2. hypotension 3. chronic respiratory failure 4. sepsis 5. Anemia 6. GI bleed 7. CVA 8. DM 9. Hypothyroidism 10. pancytopenia Plan - discussed with medical team, pt needs blood products but does not have access. - will arrange for HD today instead of tomorrow in order to transfuse pt - prognosis is poor - replace potassium - check mag level - vent support - epogen for anemia - it has been difficult to UF volume as he is hypotensive Dr Mireles
[2016-12-05] MEDS ORDERED: EPOETIN ALFA 10,000 UNIT/1 ML VIAL IVPUSH ONE (14:00)
--- NOTE | 2016-12-05 15:44 | PN ---
Physical Exam: SUBJECTIVE: Patient seen and examined Patient resting in bed, NAD, opening eyes spontaneously. 97 on john hugger. BP 141/63. NO further SZ activity witnessed today, bleeding in rectal tube since yesterday. Edematous. PEG draining bile to gravity. Patient has difficult IV access, ICU unable to place central line. OBJECTIVE: Vital Signs Period Temp Pulse Resp BP Sys/Vang Pulse Ox Last 24 Hr 96.4 F-98.3 F 65-76 12-18 109-141/60-77 99-100 GENERAL: unresponsive, opens eyes. 3+ anasarca HEAD: Normal with no signs of trauma. EYES: sclera anicteric, conjunctiva clear. ENT: moist mucous membranes. NECK: supple. LUNGS: diffuse ronchi, trach, vent. HEART: Regular rate and rhythm, S1, S2 ABDOMEN: Soft, very edematous and because of it hard, globally reduced bowel sounds, feels hard because of edema. Peg in place, cleaned, hanging to gravity draining bile. blood per rectum EXTREMITIES: 1+ pulses, warm, 3+ edema. b/l pressure ulcers on heels with black echar. clean dressing in place Sacrum: unstageable pressure ulcer with yellow echar, malodorous. NEUROLOGICAL: symmetrical face PSYCH: unable to assess SKIN: Warm, dry, tinea corporis diffusely on abdomen, chest, improving Laboratory Results - last 24 hr 12/04/16 12/04/16 12/05/16 17:43 23:08 06:35 WBC RBC Hgb Hct MCV MCHC RDW Plt Count MPV Neutrophils % Lymphocytes % Monocytes % Eosinophils % Basophils % Hypochromic-Microcytic Anisocytosis Macrocytosis Sodium Potassium Chloride Carbon Dioxide Anion Gap BUN Creatinine POC Glucometer 135 134 139 Random Glucose Calcium Blood Type Antibody Screen Crossmatch 12/05/16 12/05/16 12/05/16 07:10 07:10 12:04 WBC 3.8 L D RBC 2.05 L D Hgb 6.4 L* D Hct 19.4 L D MCV 94.6 MCHC 33.0 RDW 25.2 H Plt Count 17 L* D MPV 9.4 D Neutrophils % 92.1 H Lymphocytes % 6.5 L Monocytes % 1.2 L Eosinophils % 0.0 D Basophils % 0.2 Hypochromic-Microcytic 1+ Anisocytosis 2+ Macrocytosis 2+ Sodium 144 Potassium 2.7 L* D Chloride 104 Carbon Dioxide 22 Anion Gap 18 H BUN 60 H D Creatinine 1.9 H POC Glucometer Random Glucose 134 H Calcium 7.3 L Blood Type O POSITIVE Antibody Screen Negative Crossmatch See Detail 12/05/16 14:26 WBC RBC Hgb Hct MCV MCHC RDW Plt Count MPV Neutrophils % Lymphocytes % Monocytes % Eosinophils % Basophils % Hypochromic-Microcytic Anisocytosis Macrocytosis Sodium Potassium Chloride Carbon Dioxide Anion Gap BUN Creatinine POC Glucometer 150 Random Glucose Calcium Blood Type Antibody Screen Crossmatch Active Medications Generic Name Dose Route Start Last Admin Trade Name Freq PRN Reason Stop Dose Admin Amino Acids 30 ml 11/29/16 17:30 12/05/16 12:03 Prosource No Carb Liquid Pkt PO Not Given BID@0800,1730 STEVEN Bacitracin 1 applic 11/30/16 10:00 12/05/16 11:22 Bacitracin - TP 1 applic DAILY STEVEN Administration Collagenase 1 applic 11/30/16 10:00 12/05/16 12:03 Santyl - TP 1 applic DAILY STEVEN Administration Hydrocortisone Sodium Succinate 50 mg 12/03/16 02:00 12/05/16 11:22 Solu-Cortef - IVPB 50 mg Q8H-IV STEVEN Administration Pantoprazole Sodium 100 mls @ 200 mls/hr 11/30/16 10:00 12/05/16 10:00 Protonix 40mg Ivpb (Pre-Docked) IVPB 200 mls/hr DAILY STEVEN Administration Tigecycline 50 mg/ Dextrose 100 mls @ 200 mls/hr 11/29/16 18:00 12/05/16 06:34 IVPB 200 mls/hr BID@0600,1800 STEVEN Administration Amino Acids 1,000 mls @ 30 mls/hr 11/29/16 19:00 12/04/16 23:06 Clinimix - IV 30 mls/hr Q24H STEVEN Administration Insulin Aspart 1 vial 11/29/16 18:00 12/05/16 14:24 Novolog Vial Sliding Scale - SQ Not Given Q6HPO STEVEN Protocol Ketoconazole 1 applic 11/30/16 10:00 12/05/16 12:03 Nizoral 2% Cream - TP 1 applic DAILY STEVEN Administration Levetiracetam 500 mg 12/03/16 12:45 12/05/16 11:21 Keppra Injection - IVPB 500 mg DAILY STEVEN Administration Potassium Phos/Sodium Phos 1 packet 11/29/16 22:00 12/05/16 12:03 Phos-Nak Packet - PO Not Given BID [facility] ASSESSMENT/PLAN: This is a 76 yo M with PMH of hypotension, HLD, hypothyroidism, DM, COPD, ESRD, GERD, s/p tracheostomy, s/p gastrostomy presented to ER from [facility] for coffee ground emesis. Septic shock -likley source sacral decubitus ulcer; ESBL bacteremia resolved -unstageable ulcer evaluated by wound care. -no need for debridement at this time, dressing changes. Not healing -ID consult appreciated: tigecycline PEG leaking -GI consult: gastrografin study when stable vs bedside contrast KUB. -Lexi: not necrotic, hang to gravity -nothing per peg for now. -clinamix Tinea Corporis -lotrimin TP Acute on chronic Anemia due to Hematochezia -likley source UGIB same as admission -rectal tube -hgb 6.4 -transfuse 2 u with HD -monitor h/h -PPI drip -will attempt to place new peripheral line or central line once more worsening Pancytopenia -possible keppra side effect but requires keppra for SZ treatment -Platelets 17 -transfuse 2 u pRBC, 1 u FFP, 1 U platelets with HD -monitor CBC Hypothermia -john gaurigger PRN ESRD on HD -nephro consult appreciated -HD Sat, today Chronic Hypotension -hydrocortisone 50 BID as BP is stable 140's systolic DIC -due to sepsis -trend PTT, fibrinogen -Heme consult apprecited -transfuse ffp DM -BGM q6 -sliding scale Anoxic Encephalopathy -unresponsive -unlikely to have meaningful recovery -grave prognosis -palliative care consult spoke with family -Family wishes full code due to orthodox reasons FEN no IVF replete lytes prn osmolite Consulted medical ethics [phone] Dispo: 5s Problem List - Problems (1) GORDON (acute kidney injury) Code(s): N17.9 - ACUTE KIDNEY FAILURE, UNSPECIFIED (2) Anasarca Code(s): R60.1 - GENERALIZED EDEMA (3) Anemia Code(s): D64.9 - ANEMIA, UNSPECIFIED (4) CHF (congestive heart failure) Code(s): I50.9 - HEART FAILURE, UNSPECIFIED (5) CKD (chronic kidney disease) Code(s): N18.9 - CHRONIC KIDNEY DISEASE, UNSPECIFIED (6) Elevated INR Code(s): R79.1 - ABNORMAL COAGULATION PROFILE (7) Elevated brain natriuretic peptide (BNP) level Code(s): R79.89 - OTHER SPECIFIED ABNORMAL FINDINGS OF BLOOD CHEMISTRY (8) Fluid overload Code(s): E87.70 - FLUID OVERLOAD, UNSPECIFIED (9) History of CVA (cerebrovascular accident) Code(s): Z86.73 - PRSNL HX OF TIA (TIA), AND CEREB INFRC W/O RESID DEFICITS (10) Hypoalbuminemia Code(s): E88.09 - OTH DISORDERS OF PLASMA-PROTEIN METABOLISM, NEC (11) Hypotension Code(s): I95.9 - HYPOTENSION, UNSPECIFIED Qualifiers: Hypotension type: unspecified hypotension type Qualified Code(s): I95.9 - Hypotension, unspecified (12) Passes no urine Code(s): R34 - ANURIA AND OLIGURIA (13) Pressure ulcer Code(s): L89.90 - PRESSURE ULCER OF UNSPECIFIED SITE, UNSPECIFIED STAGE (14) Pressure ulcer of ankle Code(s): L89.509 - PRESSURE ULCER OF UNSPECIFIED ANKLE, UNSPECIFIED STAGE (15) Pressure ulcer of back Code(s): L89.109 - PRESSURE ULCER OF UNSP PART OF BACK, UNSPECIFIED STAGE (16) Sacral decubitus ulcer, stage IV Code(s): L89.154 - PRESSURE ULCER OF SACRAL REGION, STAGE 4 (17) Sepsis Code(s): A41.9 - SEPSIS, UNSPECIFIED ORGANISM Qualifiers: Sepsis type: sepsis due to unspecified organism Qualified Code(s): A41.9 - Sepsis, unspecified organism (18) Septic shock Code(s): A41.9 - SEPSIS, UNSPECIFIED ORGANISM R65.21 - SEVERE SEPSIS WITH SEPTIC SHOCK (19) Thrombocytopenia Code(s): D69.6 - THROMBOCYTOPENIA, UNSPECIFIED (20) Transaminitis Code(s): R74.0 - NONSPEC ELEV OF LEVELS OF TRANSAMNS & LACTIC ACID DEHYDRGNSE (21) Upper GI bleed Code(s): K92.2 - GASTROINTESTINAL HEMORRHAGE, UNSPECIFIED Visit type - Emergency Visit Emergency Visit: Yes ED Registration Date: 11/12/16 Care time: The patient presented to the Emergency Department on the above date and was hospitalized for further evaluation of their emergent condition. - New Patient This patient is new to me today: No - Critical Care Critical Care patient: No - Discharge Referral Referred to [facility] Med [facility].C[facility] No
--- NOTE | 2016-12-05 15:52 | PN ---
Progress Note, Physician History of Present Illness: PULMONARY NO CHANGE , UNRESPONSIVE ON VENT SUPPORT,AC MODE - Current Medication List Current Medications: Active Medications Amino Acids (Prosource No Carb Liquid Pkt) 30 ml PO BID@0800,1730 [facility] Last Admin: 12/05/16 12:03 Dose: Not Given Bacitracin (Bacitracin -) 1 applic TP DAILY [facility] Last Admin: 12/05/16 11:22 Dose: 1 applic Collagenase (Santyl -) 1 applic TP DAILY [facility] Last Admin: 12/05/16 12:03 Dose: 1 applic Hydrocortisone Sodium Succinate (Solu-Cortef -) 50 mg IVPB Q8H-IV [facility] Last Admin: 12/05/16 11:22 Dose: 50 mg Pantoprazole Sodium (Protonix 40mg Ivpb (Pre-Docked)) 100 mls @ 200 mls/hr IVPB DAILY [facility] Last Admin: 12/05/16 10:00 Dose: 200 mls/hr Tigecycline 50 mg/ Dextrose 100 mls @ 200 mls/hr IVPB BID@0600,1800 [facility] Last Admin: 12/05/16 06:34 Dose: 200 mls/hr Amino Acids (Clinimix -) 1,000 mls @ 30 mls/hr IV Q24H [facility] Last Admin: 12/04/16 23:06 Dose: 30 mls/hr Insulin Aspart (Novolog Vial Sliding Scale -) 1 vial SQ Q6HPO [facility] PRN Reason: Protocol Last Admin: 12/05/16 14:24 Dose: Not Given Ketoconazole (Nizoral 2% Cream -) 1 applic TP DAILY [facility] Last Admin: 12/05/16 12:03 Dose: 1 applic Levetiracetam (Keppra Injection -) 500 mg IVPB DAILY [facility] Last Admin: 12/05/16 11:21 Dose: 500 mg Potassium Phos/Sodium Phos (Phos-Nak Packet -) 1 packet PO BID [facility] Last Admin: 12/05/16 12:03 Dose: Not Given - Objective Vital Signs: Vital Signs Temperature 97.2 F L 12/05/16 13:00 Pulse Rate 65 12/05/16 13:00 Respiratory Rate 12 12/05/16 14:43 Blood Pressure 134/66 12/05/16 13:00 O2 Sat by Pulse Oximetry (%) 99 04/10/17 10:30 Constitutional: Yes: Thin, Other (UNRESPONSIVE) Eyes: Yes: WNL HENT: Yes: WNL (TRACH) Neck: Yes: Supple Cardiovascular: Yes: Regular Rate and Rhythm, S1, S2 Gastrointestinal: Yes: Normal Bowel Sounds, Soft Extremities: Yes: Other (MULTIPLE ULCERS) Edema: Yes Labs: CBC, BMP 12/05/16 07:10 12/05/16 07:10 INR, PTT INR 1.87 (0.82-1.09) H 12/02/16 06:30 Fibrinogen 176.0 mg/dL (238-498) L 12/02/16 06:30 Problem List - Problems (1) CHF (congestive heart failure) Code(s): I50.9 - HEART FAILURE, UNSPECIFIED (2) CKD (chronic kidney disease) Code(s): N18.9 - CHRONIC KIDNEY DISEASE, UNSPECIFIED (3) History of CVA (cerebrovascular accident) Code(s): Z86.73 - PRSNL HX OF TIA (TIA), AND CEREB INFRC W/O RESID DEFICITS (4) Hypotension Code(s): I95.9 - HYPOTENSION, UNSPECIFIED Qualifiers: Hypotension type: unspecified hypotension type Qualified Code(s): I95.9 - Hypotension, unspecified (5) Hypothermia Code(s): T68.XXXA - HYPOTHERMIA, INITIAL ENCOUNTER Qualifiers: Encounter type: initial encounter Qualified Code(s): T68.XXXA - Hypothermia, initial encounter (6) Pressure ulcer of back Code(s): L89.109 - PRESSURE ULCER OF UNSP PART OF BACK, UNSPECIFIED STAGE (7) Sacral decubitus ulcer, stage IV Code(s): L89.154 - PRESSURE ULCER OF SACRAL REGION, STAGE 4 (8) Sepsis Code(s): A41.9 - SEPSIS, UNSPECIFIED ORGANISM Qualifiers: Sepsis type: sepsis due to unspecified organism Qualified Code(s): A41.9 - Sepsis, unspecified organism (9) Septic shock Code(s): A41.9 - SEPSIS, UNSPECIFIED ORGANISM R65.21 - SEVERE SEPSIS WITH SEPTIC SHOCK (10) Thrombocytopenia Code(s): D69.6 - THROMBOCYTOPENIA, UNSPECIFIED (11) Respiratory failure Code(s): J96.90 - RESPIRATORY FAILURE, UNSP, UNSP W HYPOXIA OR HYPERCAPNIA Assessment/Plan ASSESSMENT AND PLAN: Sacral Decubitus Ulcer Infection Gram Positive Bacteremia Septic Shock Lactic Acidosis ESRD on HD Chronic Hypotension h/o CVA Anoxic Encephalopathy Anemia,thrombocytopenia - continue antibiotics as per ID - HD per renal - monitor H/H - poor prognosis for any meaningful recovery - DVT/GI prophylaxis DR BUNN
[2016-12-05] MEDS ORDERED: PANTOPRAZOLE SODIUM 80 MG in SODIUM CHLORIDE 100 ML IVPB SCH (17:15)
[2016-12-05] MEDS: ALBUMIN HUMAN 25% 12.5 GM/50 ML VIAL IVPB SCH (17:19)
--- NOTE | 2016-12-05 17:23 | PN ---
Teaching Attending Note Name of Resident: Ros Dias ATTENDING PHYSICIAN STATEMENT I saw and evaluated the patient. I reviewed the resident's note and discussed the case with the resident. I agree with the resident's findings and plan as documented. SUBJECTIVE: no events over night . pt seen at 11:30 am OBJECTIVE: NAD , not responsive. eyes open ,face relaxed . Pupils, round L > R MMM, trach/vent. Lungs: b/l rales anteriorly Ext : 3+ pitting edema over legs and arms. Abd: soft, NT, ND, NL BS , 3+ pitting hard edema Skin:dry wounds on feet. rectal tube bag with maroon blood in it . ASSESSMENT AND PLAN: 76 y/o man with h/o Anoxic brain injury, chronic hypotension , HLP, COPD , chronic resp failure s/p trach, DM , hypothyroidism and other medical problems , who was brought from a NH due to coffee ground emesis .He was found to be in septic shock. 1-Septic shock: likely source is the decub ulcer ? PNA . - Cont tigacyclin - Cont steroid support ( day 3 on 50 q8H ) , will taper further on Monday 2- Possible Seizure activity: due to his anoxic brain injury , hypothermia and current illness. Keppra day 3 . no recurrence of seizure today . cont current dose 500 daily , with with supplemental doses of 250 after HD 3- Acute GI bleed . likely lower in origin . HB 6.7 , BP stable . - dr. Nicolas was notified . - transfuse 2 units of RBC, Plt and FFPs - check fibrinogen and INR - tried a peripheral line, EJ was placed but came out quickly. other trials for iV unsuccessful due to edema . - will give transfusion during HD . - will ask Sx team to try a line - star5t PPI gtt if line is achieved 4- DIC: repeat labs now 5- Dysfunctional peg . can't use . gastrografin study when feasible Clinimix for now 6- ESRD: - cont HD. 7- Sinus bradycardia : with episodes of PAF. - not a candidate for BB or AC at this point poor prognosis.
[2016-12-05 17:34] LABS: ACTIVATED PTT 60.6 SECONDS (26.9-34.4)
[2016-12-05] MEDS ORDERED: PANTOPRAZOLE SODIUM 100 ML IVPB ONE (20:13)
--- NOTE | 2016-12-05 21:27 | PN ---
Progress Note, Physician History of Present Illness: patient with no changes continues to be status quo - Current Medication List Current Medications: Active Medications Amino Acids (Prosource No Carb Liquid Pkt) 30 ml PO BID@0800,1730 [facility] Last Admin: 12/05/16 18:22 Dose: Not Given Bacitracin (Bacitracin -) 1 applic TP DAILY [facility] Last Admin: 12/05/16 11:22 Dose: 1 applic Collagenase (Santyl -) 1 applic TP DAILY [facility] Last Admin: 12/05/16 12:03 Dose: 1 applic Hydrocortisone Sodium Succinate (Solu-Cortef -) 50 mg IVPB BID [facility] Tigecycline 50 mg/ Dextrose 100 mls @ 200 mls/hr IVPB BID@0600,1800 [facility] Last Admin: 12/05/16 18:22 Dose: 200 mls/hr Amino Acids (Clinimix -) 1,000 mls @ 30 mls/hr IV Q24H [facility] Last Admin: 12/04/16 23:06 Dose: 30 mls/hr Pantoprazole Sodium 80 mg/ (Sodium Chloride) 100 mls @ 10 mls/hr IVPB Q10H [facility] PRN Reason: 8 MG/HR Potassium Chloride (Potassium Chloride 10 Meq Premix Ivpb -) 100 mls @ 100 mls/ hr IVPB Q60M [facility] Stop: 12/05/16 23:14 Insulin Aspart (Novolog Vial Sliding Scale -) 1 vial SQ Q6HPO [facility] PRN Reason: Protocol Last Admin: 12/05/16 18:22 Dose: Not Given Ketoconazole (Nizoral 2% Cream -) 1 applic TP DAILY [facility] Last Admin: 12/05/16 12:03 Dose: 1 applic Levetiracetam (Keppra Injection -) 500 mg IVPB DAILY [facility] Last Admin: 12/05/16 11:21 Dose: 500 mg Potassium Phos/Sodium Phos (Phos-Nak Packet -) 1 packet PO BID [facility] Last Admin: 12/05/16 12:03 Dose: Not Given - Objective Vital Signs: Vital Signs Temperature 97.2 F L 12/05/16 17:00 Pulse Rate 60 12/05/16 18:30 Respiratory Rate 16 12/05/16 18:33 Blood Pressure 110/70 12/05/16 18:30 O2 Sat by Pulse Oximetry (%) 99 12/05/16 10:30 Constitutional: Yes: No Distress, Calm Cardiovascular: Yes: Regular Rate and Rhythm Respiratory: Yes: Poor Air Entry, Rhonchi Gastrointestinal: Yes: Soft, Distention, Other (peg in place) Musculoskeletal: Yes: Other Extremities: Yes: Other Integumentary: Yes: Other (multiple ulcers) Wound/Incision: Yes: Other (draiange less) Neurological: Yes: Other (opens eyes) Psychiatric: Yes: Other Labs: CBC, BMP 12/05/16 07:10 12/05/16 16:30 INR, PTT INR 1.87 (0.82-1.09) H 12/02/16 06:30 Fibrinogen 141.0 mg/dL (238-498) L 12/05/16 16:30 Assessment/Plan decubitus ulcer multiple pressure ulcer infected peg tube site septic shock lactic acidosis hypotension hypothermia esrd cva gram positive bacteremia rash plan continue current mgmt continue abx patients prognosis is poor continue maintaining body temperature awaiting for final plan
[2016-12-06] MEDS: KCL 10 MEQ IVPB 100 ML IVPB SCH ×2 (00:36→02:36)
[2016-12-06] MEDS: INSULIN SLIDING SCALE (NOVOLOG) 1 VIAL SQ SCH ×4 (02:23→17:29)
[2016-12-06] MEDS ORDERED: KCL 10 MEQ IVPB 100 ML IVPB SCH (02:30)
[2016-12-06] MEDS: AMINO ACIDS 4.25%/D5W 1,000 ML IV SCH ×2 (05:00→18:20)
[2016-12-06] MEDS: TIGECYCLINE 50 MG in DEXTROSE 5%-WATER - 100 ML IVPB SCH ×2 (06:23→17:58)
[2016-12-06] MEDS: BANATROL PLUS POWDER PACKET PEG SCH ×3 (06:58→23:32)
[2016-12-06] MEDS: AMINO ACIDS/PROTEIN HYDROLYS 30 ML LIQUID.PKT PO SCH ×2 (08:01→17:31)
[2016-12-06 08:57] LABS: CALCIUM 7.7 mg/dL (8.5-10.1); COCKROFT - GAULT 53.21; CREATININE 1.5 mg/dL (0.7-1.3); MAGNESIUM 1.7 mg/dL (1.8-2.4); PHOSPHOROUS 2.4 mg/dL (2.5-4.9)
[2016-12-06 09:35] LABS: ACTIVATED PTT 53.3 SECONDS (26.9-34.4)
[2016-12-06 09:40] LABS: MCH 29.5 pg (25.7-33.7); MCHC 33.6 g/dl (32.0-35.9); MEAN CELL VOLUME 87.9 fl (80-96); MEAN PLT VOLUME 9.3 fl (7.5-11.1); PLATELET COUNT 43 K/MM3 (134-434); RDW 21.6 % (11.9-15.9); WHITE BLOOD COUNT 2.2 K/mm3 (4.0-10.0)
[2016-12-06] MEDS: levETIRAcetam 500 MG/5 ML INJECTION VIAL IVPB SCH (11:13)
[2016-12-06] MEDS: HYDROCORTISONE SOD SUCCINATE 100 MG/2 ML VIAL IVPB SCH (11:17)
[2016-12-06] MEDS: MAGNESIUM OXIDE 400 MG TABLET (FP) PO SCH ×2 (12:39→23:31)
[2016-12-06] MEDS: levETIRAcetam 500 MG TABLET (FP) PO SCH (12:39)
--- NOTE | 2016-12-06 12:39 | PROC ---
Addendum entered and electronically signed by Fani Lutz PA 12/06/16 13:38 : Central Line Post Procedure - Status Post Procedure No Pneumothorax seen on chest x-ray. Patient discussed with Dr. Doyle, patient has PC right groin, likely due to poor central venous access. Original Note: Central Line Insertion - Procedure Note TIME OUT performed prior to this procedure with verbal confirmation of correct patient identity, correct side, agreement of the procedure, correct patient position, availability of necessary equipment. Telephone consent obtained from patient's son, Matthew Jimenez (HCP), form is complete and accurate. Risk of possible infection, bleeding and pneumothorax have been discussed with the patient's son. Safety precautions based on patient history or medication use has been addressed. Coagulation profile INR: 1.87 Indication: Poor Venous Access Consent on Chart: Yes Central Line: Triple Lumen Catheter Position: Trendelenburg Area prepped, both left and right sides of neck, with Chlorhexidine solution then draped using sterile barrier protection. Anesthesia: Lidocaine 1% Technique used: Seldinger Ultrasound Guided Assistance: Yes Site: Right Internal Jugular (Both right and left IJ attempted) Right IJ attempted first with multiple attempts with good venous return, but unable to advance guidewire due to resistance. Left IJ also attempted, able to aspirate venous blood, but unable to pass guidewire due to resistance. No vascular imaging to suggest venous abnormality. Patient tolerated the procedure well. STAT chest xray ordered to rule out pneumothorax. AGNY Lomeli present for entirety of procedure.
[2016-12-06] MEDS: PANTOPRAZOLE SOD 40 MG SUSPENSION PACKET PEG SCH ×2 (12:40→23:33)
[2016-12-06] MEDS: NAPH,MB-DB/K PH,MBDB POWDER PACKET PO SCH ×2 (12:40→23:31)
[2016-12-06] MEDS: KETOCONAZOLE 2% CREAM - 60GM TUBE TP SCH (12:41)
[2016-12-06] MEDS: BACITRACIN 30 GM TUBE TOPICAL OINTMENT TP SCH (12:41)
[2016-12-06] MEDS: COLLAGENASE CLOSTRIDIUM HIST. 30 GRAMS TUBE TP SCH (12:41)
--- NOTE | 2016-12-06 12:59 | PN ---
Physical Exam: SUBJECTIVE: Patient seen and examined Patient resting in bed, NAD, opening eyes spontaneously. 97.2 on john hugger. BP 110/70. S/p transfusion 2 u pRBC, 1 U FFp 1 U Platelets with HD yesterday. Still bleeding in rectal tube. No further SZ activity. Edematous. PEG draining bile to gravity. KUB with contrast yesterday shown patent peg in stomach with contrast in stomach. Patient has lost IV access, surgery will attempt to place central line. OBJECTIVE: Vital Signs Period Temp Pulse Resp BP Sys/Vang Pulse Ox Last 24 Hr 97.0 F-97.7 F 60-83 12-125 106-174/54-82 98-99 GENERAL: unresponsive, opens eyes. 3+ anasarca HEAD: Normal with no signs of trauma. EYES: sclera anicteric, conjunctiva clear. ENT: moist mucous membranes. NECK: supple. LUNGS: diffuse ronchi, trach, vent. HEART: Regular rate and rhythm, S1, S2 ABDOMEN: Soft, very edematous and because of it hard, globally reduced bowel sounds, feels hard because of edema. Peg in place, cleaned, hanging to gravity draining bile. blood per rectum EXTREMITIES: 1+ pulses, warm, 3+ edema. b/l pressure ulcers on heels with black echar. clean dressing in place Sacrum: unstageable pressure ulcer with yellow echar, malodorous. NEUROLOGICAL: symmetrical face PSYCH: unable to assess SKIN: Warm, dry, tinea corporis diffusely on abdomen, chest, improving Laboratory Results - last 24 hr 12/05/16 12/05/16 12/05/16 12:04 14:26 16:30 WBC Corrected WBC (auto) RBC Hgb Hct MCV MCHC RDW Plt Count MPV Differential Comment Platelet Estimate Platelet Comment RBC Morphology PTT (Actin FS) 60.6 H D Fibrinogen 141.0 L Sodium Potassium Chloride Carbon Dioxide Anion Gap BUN Creatinine POC Glucometer 150 Random Glucose Calcium Phosphorus Magnesium Blood Type O POSITIVE Antibody Screen Negative Crossmatch See Detail 12/05/16 12/05/16 12/06/16 16:30 17:23 00:39 WBC Corrected WBC (auto) RBC Hgb Hct MCV MCHC RDW Plt Count MPV Differential Comment Platelet Estimate Platelet Comment RBC Morphology PTT (Actin FS) Fibrinogen Sodium Potassium 2.7 L* Chloride Carbon Dioxide Anion Gap BUN Creatinine POC Glucometer 124 130 Random Glucose Calcium Phosphorus Magnesium Blood Type Antibody Screen Crossmatch 12/06/16 12/06/16 12/06/16 05:45 05:45 05:45 WBC Cancelled Corrected WBC (auto) Cancelled RBC Cancelled Hgb Cancelled Hct Cancelled MCV Cancelled MCHC Cancelled RDW Cancelled Plt Count Cancelled MPV Cancelled Differential Comment Cancelled Platelet Estimate Cancelled Platelet Comment Cancelled RBC Morphology Cancelled PTT (Actin FS) 53.3 H Fibrinogen 142.0 L Sodium 146 H Potassium 2.9 L* Chloride 105 Carbon Dioxide 26 Anion Gap 15 BUN 44 H D Creatinine 1.5 H D POC Glucometer Random Glucose 114 H Calcium 7.7 L Phosphorus 2.4 L D Magnesium 1.7 L Blood Type Antibody Screen Crossmatch 12/06/16 12/06/16 12/06/16 06:30 09:28 11:19 WBC 2.2 L D Corrected WBC (auto) RBC 3.16 L D Hgb 9.3 L D Hct 27.8 L D MCV 87.9 MCHC 33.6 RDW 21.6 H D Plt Count 43 L D MPV 9.3 Differential Comment Platelet Estimate Platelet Comment RBC Morphology PTT (Actin FS) Fibrinogen Sodium Potassium Chloride Carbon Dioxide Anion Gap BUN Creatinine POC Glucometer 129 117 Random Glucose Calcium Phosphorus Magnesium Blood Type Antibody Screen Crossmatch Active Medications Generic Name Dose Route Start Last Admin Trade Name Freq PRN Reason Stop Dose Admin Amino Acids 30 ml 11/29/16 17:30 12/06/16 08:01 Prosource No Carb Liquid Pkt PO Not Given BID@0800,1730 [facility] Bacitracin 1 applic 11/30/16 10:00 12/06/16 12:41 Bacitracin - TP 1 applic DAILY [facility] Administration Collagenase 1 applic 11/30/16 10:00 12/06/16 12:41 Santyl - TP 1 applic DAILY [facility] Administration Hydrocortisone Sodium Succinate 50 mg 12/05/16 22:00 12/06/16 11:17 Solu-Cortef - IVPB Not Given BID STEVEN Tigecycline 50 mg/ Dextrose 100 mls @ 200 mls/hr 11/29/16 18:00 12/06/16 06:23 IVPB 200 mls/hr BID@0600,1800 [facility] Administration Amino Acids 1,000 mls @ 30 mls/hr 11/29/16 19:00 04/11/17 05:00 Clinimix - IV 30 mls/hr Q24H [facility] Administration Insulin Aspart 1 vial 11/29/16 18:00 12/06/16 11:22 Novolog Vial Sliding Scale - SQ Not Given Q6HPO [facility] Protocol Ketoconazole 1 applic 11/30/16 10:00 12/06/16 12:41 Nizoral 2% Cream - TP 1 applic DAILY [facility] Administration Levetiracetam 500 mg 12/06/16 11:15 12/06/16 12:39 Keppra - PO 500 mg DAILY [facility] Administration Magnesium Oxide 400 mg 12/06/16 11:00 12/06/16 12:39 Mag-Ox - PO 12/06/16 22:01 400 mg BID STEVEN Administration Pantoprazole Sodium 40 mg 12/06/16 11:00 12/06/16 12:40 Protonix Packets For Oral Suspension - PEG 12/06/16 22:01 40 mg BID STEVEN Administration Potassium Chloride 40 meq 12/06/16 11:00 Potassium Chloride Oral Liquid PEG 12/06/16 22:01 TID STEVEN Potassium Phos/Sodium Phos 1 packet 11/29/16 22:00 12/06/16 12:40 Phos-Nak Packet - PO 1 packet BID STEVEN Administration ASSESSMENT/PLAN: This is a 76 yo M with PMH of hypotension, HLD, hypothyroidism, DM, COPD, ESRD, GERD, s/p tracheostomy, s/p gastrostomy presented to ER from [facility] for coffee ground emesis. Septic shock -likely source sacral decubitus ulcer; ESBL bacteremia resolved -unstageable ulcer evaluated by wound care. -no need for debridement at this time, dressing changes. Not healing -ID consult appreciated: tigecycline PEG leaking -GI on case -Lexi on case -gastrografin KUB shows patent PEG with contrast in stomach -may use peg for meds only. -clinamix Tinea Corporis -lotrimin TP Acute on chronic Anemia due to Hematochezia -likely source UGIB same as admission -rectal tube -hgb 9.3 s/p 2 u with HD -monitor h/h -PPI per PEG -will attempt to place new peripheral line or central line once more worsening Pancytopenia -possible keppra side effect but requires keppra for SZ treatment, continue PO keppra per PEG -Platelets 43 -transfuse 2 u pRBC, 1 u FFP, 1 U platelets with HD -monitor CBC Hypothermia -john hassan PRN ESRD on HD -nephro consult appreciated -HD yesterday Chronic Hypotension -hydrocortisone 50 BID day 2 as BP is stable DIC -due to sepsis -trend PTT, fibrinogen -Heme consult apprecited -s/p transfusion ffp yesterday DM -BGM q6 -sliding scale Anoxic Encephalopathy -unresponsive -unlikely to have meaningful recovery -grave prognosis -palliative care consult spoke with family -Family wishes full code due to mormonism reasons FEN no IVF replete lytes prn osmolite Consulted medical ethics [phone] Called family again, left message Dispo: 5s Problem List - Problems (1) GORDON (acute kidney injury) Code(s): N17.9 - ACUTE KIDNEY FAILURE, UNSPECIFIED (2) Anasarca Code(s): R60.1 - GENERALIZED EDEMA (3) Anemia Code(s): D64.9 - ANEMIA, UNSPECIFIED (4) CHF (congestive heart failure) Code(s): I50.9 - HEART FAILURE, UNSPECIFIED (5) CKD (chronic kidney disease) Code(s): N18.9 - CHRONIC KIDNEY DISEASE, UNSPECIFIED (6) Elevated INR Code(s): R79.1 - ABNORMAL COAGULATION PROFILE (7) Elevated brain natriuretic peptide (BNP) level Code(s): R79.89 - OTHER SPECIFIED ABNORMAL FINDINGS OF BLOOD CHEMISTRY (8) Fluid overload Code(s): E87.70 - FLUID OVERLOAD, UNSPECIFIED (9) History of CVA (cerebrovascular accident) Code(s): Z86.73 - PRSNL HX OF TIA (TIA), AND CEREB INFRC W/O RESID DEFICITS (10) Hypoalbuminemia Code(s): E88.09 - OTH DISORDERS OF PLASMA-PROTEIN METABOLISM, NEC (11) Hypotension Code(s): I95.9 - HYPOTENSION, UNSPECIFIED Qualifiers: Hypotension type: unspecified hypotension type Qualified Code(s): I95.9 - Hypotension, unspecified (12) Passes no urine Code(s): R34 - ANURIA AND OLIGURIA (13) Pressure ulcer Code(s): L89.90 - PRESSURE ULCER OF UNSPECIFIED SITE, UNSPECIFIED STAGE (14) Pressure ulcer of ankle Code(s): L89.509 - PRESSURE ULCER OF UNSPECIFIED ANKLE, UNSPECIFIED STAGE (15) Pressure ulcer of back Code(s): L89.109 - PRESSURE ULCER OF UNSP PART OF BACK, UNSPECIFIED STAGE (16) Sacral decubitus ulcer, stage IV Code(s): L89.154 - PRESSURE ULCER OF SACRAL REGION, STAGE 4 (17) Sepsis Code(s): A41.9 - SEPSIS, UNSPECIFIED ORGANISM Qualifiers: Sepsis type: sepsis due to unspecified organism Qualified Code(s): A41.9 - Sepsis, unspecified organism (18) Septic shock Code(s): A41.9 - SEPSIS, UNSPECIFIED ORGANISM R65.21 - SEVERE SEPSIS WITH SEPTIC SHOCK (19) Thrombocytopenia Code(s): D69.6 - THROMBOCYTOPENIA, UNSPECIFIED (20) Transaminitis Code(s): R74.0 - NONSPEC ELEV OF LEVELS OF TRANSAMNS & LACTIC ACID DEHYDRGNSE (21) Upper GI bleed Code(s): K92.2 - GASTROINTESTINAL HEMORRHAGE, UNSPECIFIED Visit type - Emergency Visit Emergency Visit: Yes ED Registration Date: 11/12/16 Care time: The patient presented to the Emergency Department on the above date and was hospitalized for further evaluation of their emergent condition. - New Patient This patient is new to me today: No - Critical Care Critical Care patient: No - Discharge Referral Referred to [facility] No
[2016-12-06] MEDS ORDERED: PT OWN MED DRAWER 7, Y5N ONE (13:52)
[2016-12-06] MEDS: POTASSIUM CHLORIDE ORAL LIQUID 20 MEQ/15 ML PEG SCH ×3 (13:55→23:30)
--- NOTE | 2016-12-06 14:04 | PN ---
Progress Note, Physician History of Present Illness: pulmonary no change unresponsive on vent support ac mode - Current Medication List Current Medications: Active Medications Amino Acids (Prosource No Carb Liquid Pkt) 30 ml PO BID@0800,1730 [facility] Last Admin: 12/06/16 08:01 Dose: Not Given Bacitracin (Bacitracin -) 1 applic TP DAILY [facility] Last Admin: 12/06/16 12:41 Dose: 1 applic Collagenase (Santyl -) 1 applic TP DAILY [facility] Last Admin: 12/06/16 12:41 Dose: 1 applic Hydrocortisone Sodium Succinate (Solu-Cortef -) 50 mg IVPB BID [facility] Last Admin: 12/06/16 11:17 Dose: Not Given Tigecycline 50 mg/ Dextrose 100 mls @ 200 mls/hr IVPB BID@0600,1800 [facility] Last Admin: 12/06/16 06:23 Dose: 200 mls/hr Amino Acids (Clinimix -) 1,000 mls @ 30 mls/hr IV Q24H [facility] Last Admin: 12/06/16 05:00 Dose: 30 mls/hr Insulin Aspart (Novolog Vial Sliding Scale -) 1 vial SQ Q6HPO [facility] PRN Reason: Protocol Last Admin: 12/06/16 11:22 Dose: Not Given Ketoconazole (Nizoral 2% Cream -) 1 applic TP DAILY [facility] Last Admin: 12/06/16 12:41 Dose: 1 applic Levetiracetam (Keppra -) 500 mg PO DAILY [facility] Last Admin: 12/06/16 12:39 Dose: 500 mg Magnesium Oxide (Mag-Ox -) 400 mg PO BID [facility] Stop: 12/06/16 22:01 Last Admin: 12/06/16 12:39 Dose: 400 mg Pantoprazole Sodium (Protonix Packets For Oral Suspension -) 40 mg PEG BID [facility] Stop: 12/06/16 22:01 Last Admin: 12/06/16 12:40 Dose: 40 mg Potassium Chloride (Potassium Chloride Oral Liquid) 40 meq PEG TID [facility] Stop: 12/06/16 22:01 Last Admin: 12/06/16 13:55 Dose: 40 meq Potassium Phos/Sodium Phos (Phos-Nak Packet -) 1 packet PO BID [facility] Last Admin: 12/06/16 12:40 Dose: 1 packet - Objective Vital Signs: Vital Signs Temperature 97.7 F 12/06/16 09:00 Pulse Rate 82 12/06/16 09:00 Respiratory Rate 125 H 12/06/16 09:00 Blood Pressure 125/77 12/06/16 09:00 O2 Sat by Pulse Oximetry (%) 99 12/06/16 00:00 Constitutional: Yes: Thin, Other (unresponsive) Eyes: Yes: WNL HENT: Yes: WNL Neck: Yes: Supple (trach) Cardiovascular: Yes: Regular Rate and Rhythm, S1, S2 Respiratory: Yes: Rhonchi (scattered rhonchi) Gastrointestinal: Yes: Normal Bowel Sounds, Soft Extremities: Yes: WNL, Other (leg ulcers) Edema: Yes Labs: CBC, BMP 12/06/16 09:28 12/06/16 05:45 INR, PTT INR 1.87 (0.82-1.09) H 12/02/16 06:30 Fibrinogen 142.0 mg/dL (238-498) L 12/06/16 05:45 - ....Imaging Chest X-ray: Report Reviewed, Image Reviewed Problem List - Problems (1) CHF (congestive heart failure) Code(s): I50.9 - HEART FAILURE, UNSPECIFIED (2) CKD (chronic kidney disease) Code(s): N18.9 - CHRONIC KIDNEY DISEASE, UNSPECIFIED (3) History of CVA (cerebrovascular accident) Code(s): Z86.73 - PRSNL HX OF TIA (TIA), AND CEREB INFRC W/O RESID DEFICITS (4) Hypotension Code(s): I95.9 - HYPOTENSION, UNSPECIFIED Qualifiers: Hypotension type: unspecified hypotension type Qualified Code(s): I95.9 - Hypotension, unspecified (5) Hypothermia Code(s): T68.XXXA - HYPOTHERMIA, INITIAL ENCOUNTER Qualifiers: Encounter type: initial encounter Qualified Code(s): T68.XXXA - Hypothermia, initial encounter (6) Pressure ulcer of back Code(s): L89.109 - PRESSURE ULCER OF UNSP PART OF BACK, UNSPECIFIED STAGE (7) Sacral decubitus ulcer, stage IV Code(s): L89.154 - PRESSURE ULCER OF SACRAL REGION, STAGE 4 (8) Sepsis Code(s): A41.9 - SEPSIS, UNSPECIFIED ORGANISM Qualifiers: Sepsis type: sepsis due to unspecified organism Qualified Code(s): A41.9 - Sepsis, unspecified organism (9) Septic shock Code(s): A41.9 - SEPSIS, UNSPECIFIED ORGANISM R65.21 - SEVERE SEPSIS WITH SEPTIC SHOCK (10) Thrombocytopenia Code(s): D69.6 - THROMBOCYTOPENIA, UNSPECIFIED (11) Respiratory failure Code(s): J96.90 - RESPIRATORY FAILURE, UNSP, UNSP W HYPOXIA OR HYPERCAPNIA Assessment/Plan ASSESSMENT AND PLAN: Sacral Decubitus Ulcer Infection Gram Positive Bacteremia Septic Shock Lactic Acidosis ESRD on HD Chronic Hypotension h/o CVA Anoxic Encephalopathy Anemia,thrombocytopenia - continue antibiotics as per ID - HD per renal - monitor H/H - poor prognosis for any meaningful recovery - DVT/GI prophylaxis DR BUNN
--- NOTE | 2016-12-06 17:42 | PN ---
Teaching Attending Note Name of Resident: Ros Dias ATTENDING PHYSICIAN STATEMENT I saw and evaluated the patient. I reviewed the resident's note and discussed the case with the resident. I agree with the resident's findings and plan as documented. SUBJECTIVE: unable to obtain hx. no events over night . cont to have melena OBJECTIVE: NAD , not responsive. eyes open ,face relaxed . Pupils, round L > R MMM, trach/vent. Lungs: b/l rales anteriorly Ext : 3+ pitting edema over legs and arms. Abd: soft, NT, ND, NL BS , 3+ pitting hard edema Skin:dry wounds on feet. rectal tube bag with black watery stool ASSESSMENT AND PLAN: 76 y/o man with h/o Anoxic brain injury, chronic hypotension , HLP, COPD , chronic resp failure s/p trach, DM , hypothyroidism and other medical problems , who was brought from a NH due to coffee ground emesis .He was found to be in septic shock. 1-Septic shock: likely source is the decub ulcer and PNA . - Cont tigacyclin - due to lack of IV access, will change hydrocortisone to be given through PEG to avoid adrenal insufficiency . will decrease to 25 BID 2- Possible Seizure activity: due to his anoxic brain injury , hypothermia and current illness. Cont Keppra , but change to PEG rout . no recurrence of seizure ( facial twitching ) cont current dose 500 daily , with with supplemental doses of 250 after HD 3- Acute GI bleed . s/p transfusion of 2 units RBC, FFP, Plt yesterday . Hb better 9.3 . has no access, but HD cath which can be used fro transfusion urgently if needed - Dr. Nicolas aware . no intervention at this time. - transfuse as needed - check fibrinogen and INR in am - PPI through PEG 4- DIC: follow coags 5- Dysfunctional peg . will use PEG for meds only . keep NPO due to GI bleed . KUB study noted 6- ESRD: - cont HD. 7- Sinus bradycardia : with episodes of PAF. - not a candidate for BB or AC at this point poor prognosis. still unable to reach family for latest update. NO iv access, surgical team tried , with no success
--- NOTE | 2016-12-06 17:47 | PN ---
Progress Note, Physician History of Present Illness: iv access lost central line tried without success - Current Medication List Current Medications: Active Medications Amino Acids (Prosource No Carb Liquid Pkt) 30 ml PO BID@0800,1730 [facility] Last Admin: 12/06/16 17:31 Dose: 30 ml Bacitracin (Bacitracin -) 1 applic TP DAILY [facility] Last Admin: 12/06/16 12:41 Dose: 1 applic Collagenase (Santyl -) 1 applic TP DAILY [facility] Last Admin: 12/06/16 12:41 Dose: 1 applic Hydrocortisone (Cortef -) 25 mg PEG BID [facility] Tigecycline 50 mg/ Dextrose 100 mls @ 200 mls/hr IVPB BID@0600,1800 [facility] Last Admin: 12/06/16 06:23 Dose: 200 mls/hr Amino Acids (Clinimix -) 1,000 mls @ 30 mls/hr IV Q24H [facility] Last Admin: 12/06/16 05:00 Dose: 30 mls/hr Insulin Aspart (Novolog Vial Sliding Scale -) 1 vial SQ Q6HPO [facility] PRN Reason: Protocol Last Admin: 12/06/16 17:29 Dose: Not Given Ketoconazole (Nizoral 2% Cream -) 1 applic TP DAILY [facility] Last Admin: 12/06/16 12:41 Dose: 1 applic Levetiracetam (Keppra -) 500 mg PO DAILY [facility] Last Admin: 12/06/16 12:39 Dose: 500 mg Magnesium Oxide (Mag-Ox -) 400 mg PO BID [facility] Stop: 12/06/16 22:01 Last Admin: 12/06/16 12:39 Dose: 400 mg Pantoprazole Sodium (Protonix Packets For Oral Suspension -) 40 mg PEG BID [facility] Stop: 12/06/16 22:01 Last Admin: 12/06/16 12:40 Dose: 40 mg Potassium Chloride (Potassium Chloride Oral Liquid) 40 meq PEG TID [facility] Stop: 12/06/16 22:01 Last Admin: 12/06/16 17:31 Dose: 40 meq Potassium Phos/Sodium Phos (Phos-Nak Packet -) 1 packet PO BID [facility] Last Admin: 12/06/16 12:40 Dose: 1 packet - Objective Vital Signs: Vital Signs Temperature 97.3 F L 12/06/16 14:01 Pulse Rate 63 12/06/16 14:01 Respiratory Rate 12 12/06/16 14:30 Blood Pressure 94/52 12/06/16 14:01 O2 Sat by Pulse Oximetry (%) 99 12/06/16 10:25 Constitutional: Yes: Other Cardiovascular: Yes: Regular Rate and Rhythm Respiratory: Yes: Mechanically Ventilated, Poor Air Entry, Other (trach) Gastrointestinal: Yes: Soft, Distention, Other (peg in place) Musculoskeletal: Yes: Other Extremities: Yes: Other Wound/Incision: Yes: Other (multiple pressure ulcers decubitus ulcers) Neurological: Yes: Other (opens eyes) Psychiatric: Yes: Other Labs: CBC, BMP 12/06/16 09:28 12/06/16 05:45 INR, PTT INR 1.87 (0.82-1.09) H 12/02/16 06:30 Fibrinogen 142.0 mg/dL (238-498) L 12/06/16 05:45 Assessment/Plan decubitus ulcer multiple pressure ulcer infected peg tube site septic shock lactic acidosis hypotension hypothermia esrd cva gram positive bacteremia rash plan continue current mgmt abx cannot be given because of no access no oral abx available for his organism patients prognosis is poor continue maintaining body temperature awaiting for final plan
--- NOTE | 2016-12-06 18:14 | PN ---
Progress Note, Physician History of Present Illness: Pt seen and examined at bedside. No great change in clinical status. - Current Medication List Current Medications: Active Medications Amino Acids (Prosource No Carb Liquid Pkt) 30 ml PO BID@0800,1730 [facility] Last Admin: 12/06/16 17:31 Dose: 30 ml Bacitracin (Bacitracin -) 1 applic TP DAILY [facility] Last Admin: 12/06/16 12:41 Dose: 1 applic Collagenase (Santyl -) 1 applic TP DAILY [facility] Last Admin: 12/06/16 12:41 Dose: 1 applic Hydrocortisone (Cortef -) 25 mg PEG BID [facility] Tigecycline 50 mg/ Dextrose 100 mls @ 200 mls/hr IVPB BID@0600,1800 [facility] Last Admin: 12/06/16 17:58 Dose: Not Given Amino Acids (Clinimix -) 1,000 mls @ 30 mls/hr IV Q24H [facility] Last Admin: 12/06/16 05:00 Dose: 30 mls/hr Insulin Aspart (Novolog Vial Sliding Scale -) 1 vial SQ Q6HPO [facility] PRN Reason: Protocol Last Admin: 12/06/16 17:29 Dose: Not Given Ketoconazole (Nizoral 2% Cream -) 1 applic TP DAILY [facility] Last Admin: 12/06/16 12:41 Dose: 1 applic Levetiracetam (Keppra -) 500 mg PO DAILY [facility] Last Admin: 12/06/16 12:39 Dose: 500 mg Magnesium Oxide (Mag-Ox -) 400 mg PO BID [facility] Stop: 12/06/16 22:01 Last Admin: 12/06/16 12:39 Dose: 400 mg Pantoprazole Sodium (Protonix Packets For Oral Suspension -) 40 mg PEG BID [facility] Stop: 12/06/16 22:01 Last Admin: 12/06/16 12:40 Dose: 40 mg Potassium Chloride (Potassium Chloride Oral Liquid) 40 meq PEG TID [facility] Stop: 12/06/16 22:01 Last Admin: 12/06/16 17:31 Dose: 40 meq Potassium Phos/Sodium Phos (Phos-Nak Packet -) 1 packet PO BID [facility] Last Admin: 12/06/16 12:40 Dose: 1 packet - Objective Vital Signs: Vital Signs Temperature 97.3 F L 12/06/16 14:01 Pulse Rate 63 12/06/16 14:01 Respiratory Rate 21 12/06/16 17:54 Blood Pressure 94/52 12/06/16 14:01 O2 Sat by Pulse Oximetry (%) 99 12/06/16 10:25 Constitutional: Yes: Calm HENT: Yes: Other Neck: Yes: Other (trache) Cardiovascular: Yes: S1, S2 Respiratory: Yes: Mechanically Ventilated Gastrointestinal: Yes: Other (peg) Genitourinary: Yes: Anuria, Incontinence Musculoskeletal: Yes: Muscle Weakness Edema: Yes Neurological: Yes: Lethargy Labs: CBC, BMP 12/06/16 09:28 12/06/16 05:45 INR, PTT INR 1.87 (0.82-1.09) H 12/02/16 06:30 Fibrinogen 142.0 mg/dL (238-498) L 12/06/16 05:45 Problem List - Problems (1) GORDON (acute kidney injury) Code(s): N17.9 - ACUTE KIDNEY FAILURE, UNSPECIFIED (2) Anasarca Code(s): R60.1 - GENERALIZED EDEMA (3) Anemia Code(s): D64.9 - ANEMIA, UNSPECIFIED (4) CHF (congestive heart failure) Code(s): I50.9 - HEART FAILURE, UNSPECIFIED (5) CKD (chronic kidney disease) Code(s): N18.9 - CHRONIC KIDNEY DISEASE, UNSPECIFIED (6) Fluid overload Code(s): E87.70 - FLUID OVERLOAD, UNSPECIFIED (7) History of CVA (cerebrovascular accident) Code(s): Z86.73 - PRSNL HX OF TIA (TIA), AND CEREB INFRC W/O RESID DEFICITS Assessment/Plan Current Medications Generic Name Dose Route Start Last Admin Trade Name Freq PRN Reason Stop Dose Admin Amino Acids 30 ml 11/29/16 17:30 12/06/16 17:31 Prosource No Carb Liquid Pkt PO 30 ml BID@0800,1730 [facility] Administration Bacitracin 1 applic 11/30/16 10:00 12/06/16 12:41 Bacitracin - TP 1 applic DAILY [facility] Administration Collagenase 1 applic 11/30/16 10:00 12/06/16 12:41 Santyl - TP 1 applic DAILY [facility] Administration Hydrocortisone 25 mg 12/06/16 22:00 Cortef - PEG BID [facility] Tigecycline 50 mg/ Dextrose 100 mls @ 200 mls/hr 11/29/16 18:00 12/06/16 17:58 IVPB Not Given BID@0600,1800 [facility] Amino Acids 1,000 mls @ 30 mls/hr 11/29/16 19:00 12/06/16 05:00 Clinimix - IV 30 mls/hr Q24H [facility] Administration Insulin Aspart 1 vial 11/29/16 18:00 12/06/16 17:29 Novolog Vial Sliding Scale - SQ Not Given Q6HPO [facility] Protocol Ketoconazole 1 applic 11/30/16 10:00 12/06/16 12:41 Nizoral 2% Cream - TP 1 applic DAILY [facility] Administration Levetiracetam 500 mg 12/06/16 11:15 12/06/16 12:39 Keppra - PO 500 mg DAILY [facility] Administration Magnesium Oxide 400 mg 12/06/16 11:00 12/06/16 12:39 Mag-Ox - PO 12/06/16 22:01 400 mg BID [facility] Administration Pantoprazole Sodium 40 mg 12/06/16 11:00 12/06/16 12:40 Protonix Packets For Oral Suspension - PEG 12/06/16 22:01 40 mg BID [facility] Administration Potassium Chloride 40 meq 12/06/16 11:00 12/06/16 17:31 Potassium Chloride Oral Liquid PEG 12/06/16 22:01 40 meq TID [facility] Administration Potassium Phos/Sodium Phos 1 packet 11/29/16 22:00 12/06/16 12:40 Phos-Nak Packet - PO 1 packet BID [facility] Administration Impression 1. ESRD 2. hypotension 3. chronic respiratory failure 4. sepsis 5. Anemia 6. GI bleed 7. CVA 8. DM 9. Hypothyroidism 10. pancytopenia Plan - pt dialyzed yesterday - next HD on - other management per primary team - prognosis poor - vent support - epogen for anemia - it has been difficult to UF volume as he is hypotensive Dr Mireles
[2016-12-06] MEDS: HYDROCORTISONE 10 MG TABLET PEG SCH (23:28)
[2016-12-07] MEDS: INSULIN SLIDING SCALE (NOVOLOG) 1 VIAL SQ SCH ×4 (00:01→17:53)
[2016-12-07] MEDS: TIGECYCLINE 50 MG in DEXTROSE 5%-WATER - 100 ML IVPB SCH ×2 (06:47→18:47)
[2016-12-07] MEDS: BANATROL PLUS POWDER PACKET PEG SCH ×3 (06:52→21:10)
[2016-12-07] MEDS: AMINO ACIDS/PROTEIN HYDROLYS 30 ML LIQUID.PKT PO SCH ×2 (08:25→17:52)
[2016-12-07] MEDS ORDERED: PT OWN MED DRAWER 7, Y5N ONE (09:55)
[2016-12-07 10:21] LABS: MCH 29.4 pg (25.7-33.7); MEAN CELL VOLUME 89.1 fl (80-96); MEAN PLT VOLUME 9.4 fl (7.5-11.1); RDW 24.1 % (11.9-15.9)
[2016-12-07] MEDS: BACITRACIN 30 GM TUBE TOPICAL OINTMENT TP SCH (10:23)
[2016-12-07] MEDS: HYDROCORTISONE 10 MG TABLET PEG SCH ×2 (10:24→21:12)
[2016-12-07] MEDS: KETOCONAZOLE 2% CREAM - 60GM TUBE TP SCH (10:25)
[2016-12-07] MEDS: levETIRAcetam 500 MG TABLET (FP) PO SCH (10:25)
[2016-12-07] MEDS: NAPH,MB-DB/K PH,MBDB POWDER PACKET PO SCH ×2 (10:25→21:12)
[2016-12-07] MEDS: COLLAGENASE CLOSTRIDIUM HIST. 30 GRAMS TUBE TP SCH (10:26)
[2016-12-07 10:31] LABS: WHITE BLOOD COUNT 1.4 K/mm3 (4.0-10.0)
[2016-12-07 10:32] LABS: PLATELET COUNT 21 K/MM3 (134-434)
[2016-12-07 10:54] LABS: INR 2.23 (0.82-1.09); PROTHROMBIN TIME (PATIENT) 24.9 SEC (9.98-11.88)
[2016-12-07 10:58] LABS: CALCIUM 7.6 mg/dL (8.5-10.1); COCKROFT - GAULT 46.95; CREATININE 1.7 mg/dL (0.7-1.3); MAGNESIUM 1.7 mg/dL (1.8-2.4); PHOSPHOROUS 2.3 mg/dL (2.5-4.9)
--- NOTE | 2016-12-07 11:12 | PN ---
Addendum entered and electronically signed by Ros Dias RES 12/07/16 13: 11: notified at 1230 pm that patient blood pressure dropped to 60 systolic, calculated MAP around 45. Contacted vascular surgery, placed L fem central line. Ordered 500cc bolus NS, 100 hydrocortisone stat. Patient desating, respiratory adjsuted vent for sat 90%. contacted ICU. If Map does not improve with these measures, xfer ICU. Original Note: Physical Exam: SUBJECTIVE: Patient seen and examined Patient resting in bed, NAD, opening eyes spontaneously. 97.4 on john hugger. BP 110/47. Still bleeding in rectal tube. No further SZ activity. Edematous. PEG being used for meds. Patient has no IV access, surgery was unable to place central line due to extensive scarring. Palliative care spoke to family yesterday, explained grave prognosis, family maintains that everything is to be done, full code. OBJECTIVE: Vital Signs Period Temp Pulse Resp BP Sys/Vang Pulse Ox Last 24 Hr 97.0 F-97.4 F 55-86 12-21 94-119/46-67 GENERAL: unresponsive, opens eyes. 3+ anasarca HEAD: Normal with no signs of trauma. EYES: sclera anicteric, conjunctiva clear. ENT: moist mucous membranes. NECK: supple. LUNGS: diffuse ronchi, trach, vent. HEART: Regular rate and rhythm, S1, S2 ABDOMEN: Soft, very edematous and because of it hard, globally reduced bowel sounds, feels hard because of edema. Peg in place. blood per rectum EXTREMITIES: 1+ pulses, warm, 3+ edema. b/l pressure ulcers on heels with black echar. clean dressing in place Sacrum: unstageable pressure ulcer with yellow echar, malodorous. NEUROLOGICAL: symmetrical face PSYCH: unable to assess SKIN: Warm, dry, tinea corporis diffusely on abdomen, chest, improving Laboratory Results - last 24 hr 12/06/16 12/06/16 12/06/16 11:19 17:25 23:59 WBC RBC Hgb Hct MCV MCHC RDW Plt Count MPV POC Glucometer 117 128 99 12/07/16 12/07/16 06:02 10:05 WBC 1.4 L* D RBC 2.88 L Hgb 8.5 L Hct 25.6 L MCV 89.1 MCHC 33.0 RDW 24.1 H D Plt Count 21 L* D MPV 9.4 POC Glucometer 88 Active Medications Generic Name Dose Route Start Last Admin Trade Name Armando PRN Reason Stop Dose Admin Amino Acids 30 ml 11/29/16 17:30 12/07/16 08:25 Prosource No Carb Liquid Pkt PO 30 ml BID@0800,1730 STEVEN Administration Bacitracin 1 applic 11/30/16 10:00 12/07/16 10:23 Bacitracin - TP 1 applic DAILY STEVEN Administration Collagenase 1 applic 11/30/16 10:00 12/07/16 10:26 Santyl - TP 1 applic DAILY STEVEN Administration Hydrocortisone 25 mg 12/06/16 22:00 12/07/16 10:24 Cortef - PEG 25 mg BID STEVEN Administration Tigecycline 50 mg/ Dextrose 100 mls @ 200 mls/hr 11/29/16 18:00 12/07/16 06:47 IVPB Not Given BID@0600,1800 STEVEN Amino Acids 1,000 mls @ 30 mls/hr 11/29/16 19:00 12/06/16 18:20 Clinimix - IV Not Given Q24H ST[facility]EN Insulin Aspart 1 vial 11/29/16 18:00 12/07/16 06:05 Novolog Vial Sliding Scale - SQ Not Given Q6HPO [facility] Protocol Ketoconazole 1 applic 11/30/16 10:00 12/07/16 10:25 Nizoral 2% Cream - TP 1 applic DAILY STEVEN Administration Levetiracetam 500 mg 12/06/16 11:15 12/07/16 10:25 Keppra - PO 500 mg DAILY STEVEN Administration Potassium Phos/Sodium Phos 1 packet 11/29/16 22:00 12/07/16 10:25 Phos-Nak Packet - PO 1 packet BID STEVEN Administration ASSESSMENT/PLAN: This is a 76 yo M with PMH of hypotension, HLD, hypothyroidism, DM, COPD, ESRD, GERD, s/p tracheostomy, s/p gastrostomy presented to ER from [facility] for coffee ground emesis. Septic shock -likely source sacral decubitus ulcer; ESBL bacteremia resolved -unstageable ulcer evaluated by wound care. no need for debridement at this time , dressing changes. -ID consult appreciated: unable to give tigecycline as there is no IV access. No PO abx available to cover organism PEG leaking -GI on case -Lexi on case -may use peg for meds only. No IV access -staff, surgery unable to place IV or central line after multiple attempts -will attempt to place peripheral line again or ask vascular Tinea Corporis -lotrimin TP Acute on chronic Anemia due to Hematochezia -likely source UGIB same as admission -still blood in rectal tube -hgb stable -monitor h/h -PPI per PEG worsening Pancytopenia -possible keppra side effect but requires keppra for SZ treatment, continue PO keppra per PEG -Platelets stable -monitor CBC Hypothermia -john dodgeer PRN ESRD on HD -nephro consult appreciated -HD yesterday Chronic Hypotension -hydrocortisone 50 BID day 3 as BP is stable DIC -due to sepsis -trend PTT, fibrinogen -Heme consult apprecited DM -BGM q6 -sliding scale Anoxic Encephalopathy -unresponsive -unlikely to have meaningful recovery -grave prognosis -palliative care consult spoke with family -Family wishes full code due to voodoo reasons FEN no IVF replete lytes prn osmolite Consulted medical ethics [phone] Called family again, left message Dispo: 5s Problem List - Problems (1) GORDON (acute kidney injury) Code(s): N17.9 - ACUTE KIDNEY FAILURE, UNSPECIFIED (2) Anasarca Code(s): R60.1 - GENERALIZED EDEMA (3) Anemia Code(s): D64.9 - ANEMIA, UNSPECIFIED (4) CHF (congestive heart failure) Code(s): I50.9 - HEART FAILURE, UNSPECIFIED (5) CKD (chronic kidney disease) Code(s): N18.9 - CHRONIC KIDNEY DISEASE, UNSPECIFIED (6) Elevated INR Code(s): R79.1 - ABNORMAL COAGULATION PROFILE (7) Elevated brain natriuretic peptide (BNP) level Code(s): R79.89 - OTHER SPECIFIED ABNORMAL FINDINGS OF BLOOD CHEMISTRY (8) Fluid overload Code(s): E87.70 - FLUID OVERLOAD, UNSPECIFIED (9) History of CVA (cerebrovascular accident) Code(s): Z86.73 - PRSNL HX OF TIA (TIA), AND CEREB INFRC W/O RESID DEFICITS (10) Hypoalbuminemia Code(s): E88.09 - OTH DISORDERS OF PLASMA-PROTEIN METABOLISM, NEC (11) Hypotension Code(s): I95.9 - HYPOTENSION, UNSPECIFIED Qualifiers: Hypotension type: unspecified hypotension type Qualified Code(s): I95.9 - Hypotension, unspecified (12) Passes no urine Code(s): R34 - ANURIA AND OLIGURIA (13) Pressure ulcer Code(s): L89.90 - PRESSURE ULCER OF UNSPECIFIED SITE, UNSPECIFIED STAGE (14) Pressure ulcer of ankle Code(s): L89.509 - PRESSURE ULCER OF UNSPECIFIED ANKLE, UNSPECIFIED STAGE (15) Pressure ulcer of back Code(s): L89.109 - PRESSURE ULCER OF UNSP PART OF BACK, UNSPECIFIED STAGE (16) Sacral decubitus ulcer, stage IV Code(s): L89.154 - PRESSURE ULCER OF SACRAL REGION, STAGE 4 (17) Sepsis Code(s): A41.9 - SEPSIS, UNSPECIFIED ORGANISM Qualifiers: Sepsis type: sepsis due to unspecified organism Qualified Code(s): A41.9 - Sepsis, unspecified organism (18) Septic shock Code(s): A41.9 - SEPSIS, UNSPECIFIED ORGANISM R65.21 - SEVERE SEPSIS WITH SEPTIC SHOCK (19) Thrombocytopenia Code(s): D69.6 - THROMBOCYTOPENIA, UNSPECIFIED (20) Transaminitis Code(s): R74.0 - NONSPEC ELEV OF LEVELS OF TRANSAMNS & LACTIC ACID DEHYDRGNSE (21) Upper GI bleed Code(s): K92.2 - GASTROINTESTINAL HEMORRHAGE, UNSPECIFIED Visit type - Emergency Visit Emergency Visit: Yes ED Registration Date: 11/12/16 Care time: The patient presented to the Emergency Department on the above date and was hospitalized for further evaluation of their emergent condition. - New Patient This patient is new to me today: No - Critical Care Critical Care patient: No - Discharge Referral Referred to [facility] Med P.C.: No
[2016-12-07] MEDS ORDERED: POTASSIUM CHLORIDE TABS 20 MEQ TABLET.ER (FP) PO ONE (11:30)
[2016-12-07] MEDS ORDERED: MAGNESIUM OXIDE 400 MG TABLET (FP) PO ONE (11:30)
[2016-12-07 11:52] LABS: PLATELET ESTIMATE MARKEDLY DECREASED (NORMAL)
[2016-12-07] MEDS ORDERED: INSULIN (NOVOLOG) ASPART 100 UNITS/ML 10ML VIAL ONE (12:09)
--- NOTE | 2016-12-07 12:14 | PN ---
Teaching Attending Note Name of Resident: Ros Dias ATTENDING PHYSICIAN STATEMENT I saw and evaluated the patient. I reviewed the resident's note and discussed the case with the resident. I agree with the resident's findings and plan as documented. Patient continues to be nonverbal Vital Signs Temperature 97.4 F L 12/07/16 06:00 Pulse Rate 67 12/07/16 06:00 Respiratory Rate 13 12/07/16 06:46 Blood Pressure 100/47 12/07/16 06:00 O2 Sat by Pulse Oximetry (%) 99 12/06/16 10:25 CBCD WBC 1.4 K/mm3 (4.0-10.0) L* D 12/07/16 10:05 RBC 2.88 M/mm3 (4.00-5.60) L 12/07/16 10:05 Hgb 8.5 GM/dL (11.7-16.9) L 12/07/16 10:05 Hct 25.6 % (35.4-49) L 12/07/16 10:05 MCV 89.1 fl (80-96) 12/07/16 10:05 MCHC 33.0 g/dl (32.0-35.9) 12/07/16 10:05 RDW 24.1 % (11.9-15.9) H D 12/07/16 10:05 Plt Count 21 K/MM3 (134-434) L* D 12/07/16 10:05 MPV 9.4 fl (7.5-11.1) 12/07/16 10:05 CMP Sodium 147 mmol/L (136-145) H 12/07/16 09:45 Potassium 3.8 mmol/L (3.5-5.1) D 12/07/16 09:45 Chloride 110 mmol/L (98-107) H 12/07/16 09:45 Carbon Dioxide 23 mmol/L (21-32) 12/07/16 09:45 Anion Gap 14 (8-16) 12/07/16 09:45 BUN 50 mg/dL (7-18) H 12/07/16 09:45 Creatinine 1.7 mg/dL (0.7-1.3) H 12/07/16 09:45 Creat Clearance w eGFR 34.55 (>60) 11/28/16 05:20 Random Glucose 78 mg/dL (74-106) D 12/07/16 09:45 Calcium 7.6 mg/dL (8.5-10.1) L 12/07/16 09:45 Total Bilirubin 0.9 mg/dL (0.2-1.0) 11/28/16 05:20 AST 16 U/L (15-37) 11/28/16 05:20 ALT 13 U/L (12-78) 11/28/16 05:20 Alkaline Phosphatase 137 U/L (45-117) H 11/28/16 05:20 Total Protein 4.7 g/dl (6.4-8.2) L 11/28/16 05:20 Albumin 2.0 g/dl (3.4-5.0) L 11/30/16 06:10 CARDIAC ENZYMES Creatine Kinase 28 IU/L (39-308) L 11/12/16 01:41 Troponin I 0.08 ng/ml (0.00-0.05) H D 11/12/16 08:10 Current Medications Generic Name Dose Route Start Last Admin Trade Name Freq PRN Reason Stop Dose Admin Amino Acids 30 ml 11/29/16 17:30 12/07/16 08:25 Prosource No Carb Liquid Pkt PO 30 ml BID@0800,1730 STEVEN Administration Bacitracin 1 applic 11/30/16 10:00 12/07/16 10:23 Bacitracin - TP 1 applic DAILY STEVEN Administration Collagenase 1 applic 11/30/16 10:00 12/07/16 10:26 Santyl - TP 1 applic DAILY STEVEN Administration Hydrocortisone 25 mg 12/06/16 22:00 12/07/16 10:24 Cortef - PEG 25 mg BID STEVEN Administration Tigecycline 50 mg/ Dextrose 100 mls @ 200 mls/hr 11/29/16 18:00 12/07/16 06:47 IVPB Not Given BID@0600,1800 STEVEN Amino Acids 1,000 mls @ 30 mls/hr 11/29/16 19:00 12/06/16 18:20 Clinimix - IV Not Given Q24H [facility] Insulin Aspart 1 vial 11/29/16 18:00 12/07/16 06:05 Novolog Vial Sliding Scale - SQ Not Given Q6HPO [facility] Protocol Ketoconazole 1 applic 11/30/16 10:00 12/07/16 10:25 Nizoral 2% Cream - TP 1 applic DAILY STEVEN Administration Levetiracetam 500 mg 12/06/16 11:15 12/07/16 10:25 Keppra - PO 500 mg DAILY STEVEN Administration Potassium Phos/Sodium Phos 1 packet 11/29/16 22:00 12/07/16 10:25 Phos-Nak Packet - PO 1 packet BID STEVEN Administration Home Medications Medication Instructions Recorded Atorvastatin Ca [Lipitor] 80 mg PO HS 11/12/16 Esomeprazole Magnesium 40 mg PO DAILY 11/12/16 Ferrous Sulfate 325 mg PO DAILY 11/12/16 Hydrocortisone 20 mg PO DAILY 11/12/16 Levothyroxine [Synthroid -] 50 mcg PO DAILY 11/12/16 Magnesium Hydroxide [Milk of 400 mg PO DAILY 11/12/16 Magnesia] Midodrine HCl 5 mg PO DAILY 11/12/16 Sevelamer Carbonate [Renvela] 800 mg PO DAILY 11/12/16 Vitamin B Comp W-C [Nephro-Daily -] 1 tablet PO DAILY 11/12/16 ASSESSMENT AND PLAN: 76 y/o man with h/o Anoxic brain injury, chronic hypotension , HLP, COPD , chronic resp failure s/p trach, DM , hypothyroidism and other medical problems , who was brought from a NH due to coffee ground emesis .He was found to be in septic shock. #Septic shock: likely source is the decub ulcer and PNA . On tigacyclin as per ID, Will get Dr.Patel Mueller for access, since patient doesn't have any access at this time. # Possible Seizure activity: due to his anoxic brain injury , hypothermia on Keppra continue per to PEG tube # DIC: follow coags # Dysfunctional peg . will use PEG for meds only . keep NPO due to GI bleed . # ESRD: on HD continue, nephro # Episodes of PAF. not a candidate for BB or AC at this point .Poor prognosis.
[2016-12-07] MEDS ORDERED: HYDROCORTISONE SOD SUCCINATE 100 MG/2 ML VIAL IM ONE (12:41)
[2016-12-07] MEDS ORDERED: DOPAMINE 400 MG/D5W - 250 ML IVPB ONE (13:06)
[2016-12-07] MEDS ORDERED: SODIUM CHLORIDE 500 ML IV STA ×2 (13:06→15:03)
--- NOTE | 2016-12-07 13:10 | PN ---
Progress Note, Physician History of Present Illness: continues to be critical no improvement - Current Medication List Current Medications: Active Medications Amino Acids (Prosource No Carb Liquid Pkt) 30 ml PO BID@0800,1730 [facility] Last Admin: 12/07/16 08:25 Dose: 30 ml Bacitracin (Bacitracin -) 1 applic TP DAILY [facility] Last Admin: 12/07/16 10:23 Dose: 1 applic Collagenase (Santyl -) 1 applic TP DAILY [facility] Last Admin: 12/07/16 10:26 Dose: 1 applic Hydrocortisone (Cortef -) 25 mg PEG BID [facility] Last Admin: 12/07/16 10:24 Dose: 25 mg Hydrocortisone Sodium Succinate (Solu-Cortef -) 100 mg IVPUSH BID [facility] Tigecycline 50 mg/ Dextrose 100 mls @ 200 mls/hr IVPB BID@0600,1800 [facility] Last Admin: 12/07/16 06:47 Dose: Not Given Amino Acids (Clinimix -) 1,000 mls @ 30 mls/hr IV Q24H [facility] Last Admin: 12/06/16 18:20 Dose: Not Given Sodium Chloride (Normal Saline -) 500 mls @ 500 mls/hr IV ASDIR STA Stop: 12/07/16 14:05 Dopamine HCl/Dextrose (Dopamine 400 Mg/D5w -) 250 mls @ 17.105 mls/hr IVPB NOW ONE; 5 MCG/KG/MIN PRN Reason: Protocol Stop: 12/08/16 03:42 Insulin Aspart (Novolog Vial Sliding Scale -) 1 vial SQ Q6HPO [facility] PRN Reason: Protocol Last Admin: 12/07/16 12:28 Dose: Not Given Ketoconazole (Nizoral 2% Cream -) 1 applic TP DAILY [facility] Last Admin: 12/07/16 10:25 Dose: 1 applic Levetiracetam (Keppra -) 500 mg PO DAILY [facility] Last Admin: 12/07/16 10:25 Dose: 500 mg Potassium Phos/Sodium Phos (Phos-Nak Packet -) 1 packet PO BID [facility] Last Admin: 12/07/16 10:25 Dose: 1 packet - Objective Vital Signs: Vital Signs Temperature 97.4 F L 12/07/16 06:00 Pulse Rate 67 12/07/16 06:00 Respiratory Rate 13 12/07/16 06:46 Blood Pressure 100/47 12/07/16 06:00 O2 Sat by Pulse Oximetry (%) 99 12/06/16 10:25 Constitutional: Yes: Other Cardiovascular: Yes: Regular Rate and Rhythm Respiratory: Yes: Mechanically Ventilated, Poor Air Entry, Rhonchi Gastrointestinal: Yes: Soft, Distention, Other (peg in place) Musculoskeletal: Yes: Other Extremities: Yes: Other Integumentary: Yes: Other (multiple ulcers) Wound/Incision: Yes: Other (multiple ulcers decubitus ulcers) Neurological: Yes: Other (opens eyes) Labs: CBC, BMP 12/07/16 10:05 12/07/16 09:45 INR, PTT INR 2.23 (0.82-1.09) H 12/07/16 09:45 Fibrinogen 151.0 mg/dL (238-498) L 12/07/16 09:45 Assessment/Plan decubitus ulcer multiple pressure ulcer infected peg tube site septic shock lactic acidosis hypotension hypothermia esrd cva gram positive bacteremia rash plan continue current mgmt abx cannot be given because of no access no oral abx available for his organism patients prognosis is poor continue maintaining body temperature awaiting for final plan monitor wbc
[2016-12-07] MEDS: HYDROCORTISONE SOD SUCCINATE 100 MG/2 ML VIAL IVPUSH SCH ×3 (13:31→21:14)
--- NOTE | 2016-12-07 14:59 | PN ---
Progress Note (short form) - Note Progress Note: PULMONARY MVV 12/450/45 Gen: vented, poorly responsive Heart: RRR Lung: scattered rhonchi Abd: soft, nontender Ext: + edema, anasarca Sacral Decubitus Ulcer Infection Gram Positive Bacteremia Septic Shock ESRD on HD Chronic Respiratory Failure Chronic Hypotension h/o CVA Anoxic Encephalopathy Anemia Thrombocytopenia - continue antibiotics per ID - wound care - continue steroids - HD per renal - poor prognosis for any meaningful recovery, approaching medical futility, recommend palliative care - DVT/GI prophylaxis Tre MARINA MD
[2016-12-07] MEDS ORDERED: NAPH,MB-DB/K PH,MBDB POWDER PACKET PO ONE (15:04)
[2016-12-07] MEDS ORDERED: KCL 10 MEQ IVPB 100 ML IVPB SCH (15:15)
--- NOTE | 2016-12-07 16:58 | PN ---
Progress Note, Physician History of Present Illness: Pt seen and examined at bedside. Pt is hypotensive today. - Current Medication List Current Medications: Active Medications Amino Acids (Prosource No Carb Liquid Pkt) 30 ml PO BID@0800,1730 [facility] Last Admin: 12/07/16 08:25 Dose: 30 ml Bacitracin (Bacitracin -) 1 applic TP DAILY [facility] Last Admin: 12/07/16 10:23 Dose: 1 applic Collagenase (Santyl -) 1 applic TP DAILY [facility] Last Admin: 12/07/16 10:26 Dose: 1 applic Hydrocortisone (Cortef -) 25 mg PEG BID [facility] Last Admin: 12/07/16 10:24 Dose: 25 mg Hydrocortisone Sodium Succinate (Solu-Cortef -) 100 mg IVPUSH BID [facility] Last Admin: 12/07/16 13:31 Dose: 100 mg Tigecycline 50 mg/ Dextrose 100 mls @ 200 mls/hr IVPB BID@0600,1800 [facility] Last Admin: 12/07/16 06:47 Dose: Not Given Amino Acids (Clinimix -) 1,000 mls @ 30 mls/hr IV Q24H [facility] Last Admin: 12/06/16 18:20 Dose: Not Given Insulin Aspart (Novolog Vial Sliding Scale -) 1 vial SQ Q6HPO [facility] PRN Reason: Protocol Last Admin: 12/07/16 12:28 Dose: Not Given Ketoconazole (Nizoral 2% Cream -) 1 applic TP DAILY [facility] Last Admin: 12/07/16 10:25 Dose: 1 applic Levetiracetam (Keppra -) 500 mg PO DAILY [facility] Last Admin: 12/07/16 10:25 Dose: 500 mg Potassium Phos/Sodium Phos (Phos-Nak Packet -) 1 packet PO BID [facility] Last Admin: 12/07/16 10:25 Dose: 1 packet - Objective Vital Signs: Vital Signs Temperature 96.4 F L 12/07/16 15:13 Pulse Rate 74 12/07/16 15:13 Respiratory Rate 16 12/07/16 15:13 Blood Pressure 71/38 12/07/16 15:13 O2 Sat by Pulse Oximetry (%) 91 L 12/07/16 11:40 Constitutional: Yes: Calm Neck: Yes: Other (trache) Cardiovascular: Yes: S1, S2 Respiratory: Yes: Mechanically Ventilated Gastrointestinal: Yes: Soft Genitourinary: Yes: WNL Musculoskeletal: Yes: Muscle Weakness Neurological: Yes: Lethargy Labs: CBC, BMP 12/07/16 10:05 12/07/16 09:45 INR, PTT INR 2.23 (0.82-1.09) H 12/07/16 09:45 Fibrinogen 151.0 mg/dL (238-498) L 12/07/16 09:45 Problem List - Problems (1) GORDON (acute kidney injury) Code(s): N17.9 - ACUTE KIDNEY FAILURE, UNSPECIFIED (2) Anasarca Code(s): R60.1 - GENERALIZED EDEMA (3) Anemia Code(s): D64.9 - ANEMIA, UNSPECIFIED (4) CHF (congestive heart failure) Code(s): I50.9 - HEART FAILURE, UNSPECIFIED (5) CKD (chronic kidney disease) Code(s): N18.9 - CHRONIC KIDNEY DISEASE, UNSPECIFIED (6) Fluid overload Code(s): E87.70 - FLUID OVERLOAD, UNSPECIFIED (7) History of CVA (cerebrovascular accident) Code(s): Z86.73 - PRSNL HX OF TIA (TIA), AND CEREB INFRC W/O RESID DEFICITS Assessment/Plan Current Medications Generic Name Dose Route Start Last Admin Trade Name Armando PRN Reason Stop Dose Admin Amino Acids 30 ml 11/29/16 17:30 12/07/16 08:25 Prosource No Carb Liquid Pkt PO 30 ml BID@0800,1730 STEVEN Administration Bacitracin 1 applic 11/30/16 10:00 12/07/16 10:23 Bacitracin - TP 1 applic DAILY STEVEN Administration Collagenase 1 applic 11/30/16 10:00 12/07/16 10:26 Santyl - TP 1 applic DAILY STEVEN Administration Hydrocortisone 25 mg 12/06/16 22:00 12/07/16 10:24 Cortef - PEG 25 mg BID STEVEN Administration Hydrocortisone Sodium Succinate 100 mg 12/07/16 13:15 12/07/16 13:31 Solu-Cortef - IVPUSH 100 mg BID STEVEN Administration Tigecycline 50 mg/ Dextrose 100 mls @ 200 mls/hr 11/29/16 18:00 12/07/16 06:47 IVPB Not Given BID@0600,1800 [facility] Amino Acids 1,000 mls @ 30 mls/hr 11/29/16 19:00 12/06/16 18:20 Clinimix - IV Not Given Q24H [facility] Insulin Aspart 1 vial 11/29/16 18:00 12/07/16 12:28 Novolog Vial Sliding Scale - SQ Not Given Q6HPO [facility] Protocol Ketoconazole 1 applic 11/30/16 10:00 12/07/16 10:25 Nizoral 2% Cream - TP 1 applic DAILY STEVEN Administration Levetiracetam 500 mg 12/06/16 11:15 12/07/16 10:25 Keppra - PO 500 mg DAILY STEVEN Administration Potassium Phos/Sodium Phos 1 packet 11/29/16 22:00 12/07/16 10:25 Phos-Nak Packet - PO 1 packet BID STEVEN Administration Impression 1. ESRD 2. hypotension 3. chronic respiratory failure 4. sepsis 5. Anemia 6. GI bleed 7. CVA 8. DM 9. Hypothyroidism 10. pancytopenia Plan - HD in am if BP is stable - it has been hard to UF volume secondary to hypotension - prognosis poor - vent support - epogen for anemia - vascular surgery for access Dr Mireles
[2016-12-07] MEDS ORDERED: SODIUM CHLORIDE 250 ML IV STA (17:01)
[2016-12-07] MEDS ORDERED: DEXTROSE 50%-WATER 50 ML VIAL IVPUSH ONE (17:55)
--- NOTE | 2016-12-07 17:56 | PN ---
Progress Note (short form) - Note Progress Note: Vascular Surgery Left femoral vein TLC placed. Guidewire removed. All ports flushed. May use TLC for IV antibiotics. Ervin carmona DO
[2016-12-07] MEDS ORDERED: DEXTROSE 50%-WATER 50 ML DISP.SYRIN ONE (18:06)
[2016-12-07] MEDS: AMINO ACIDS 4.25%/D5W 1,000 ML IV SCH (21:09)
[2016-12-08] MEDS ORDERED: DEXTROSE 50%-WATER 50 ML VIAL IVPUSH ONE ×3 (00:11→10:00)
[2016-12-08] MEDS ORDERED: SODIUM CHLORIDE 500 ML IV STA ×2 (00:12→13:05)
[2016-12-08] MEDS: INSULIN SLIDING SCALE (NOVOLOG) 1 VIAL SQ SCH ×3 (00:14→12:54)
[2016-12-08] MEDS ORDERED: SODIUM CHLORIDE 250 ML IV STA ×2 (02:57→05:10)
[2016-12-08] MEDS: BANATROL PLUS POWDER PACKET PEG SCH (05:51)
[2016-12-08] MEDS: TIGECYCLINE 50 MG in DEXTROSE 5%-WATER - 100 ML IVPB SCH (05:51)
[2016-12-08] MEDS ORDERED: DEXTROSE 50%-WATER 50 ML VIAL ONE (05:59)
[2016-12-08 08:01] LABS: MCH 29.9 pg (25.7-33.7); MCHC 32.6 g/dl (32.0-35.9); MEAN CELL VOLUME 91.7 fl (80-96); RDW 25.1 % (11.9-15.9)
[2016-12-08 08:20] LABS: CALCIUM 7.3 mg/dL (8.5-10.1); COCKROFT - GAULT 44.34; CREATININE 1.8 mg/dL (0.7-1.3); MAGNESIUM 1.6 mg/dL (1.8-2.4); PHOSPHOROUS 2.2 mg/dL (2.5-4.9)
[2016-12-08 08:24] LABS: WHITE BLOOD COUNT 0.7 K/mm3 (4.0-10.0)
[2016-12-08 08:25] LABS: PLATELET COUNT 11 K/MM3 (134-434)
[2016-12-08] MEDS ORDERED: DEXTROSE 50%-WATER 50 ML VIAL IVPUSH PRN (09:15)
[2016-12-08] MEDS ORDERED: PT OWN MED DRAWER 7, Y5N ONE (09:34)
[2016-12-08] MEDS: AMINO ACIDS/PROTEIN HYDROLYS 30 ML LIQUID.PKT PO SCH (09:36)
[2016-12-08] MEDS: HYDROCORTISONE SOD SUCCINATE 100 MG/2 ML VIAL IVPUSH SCH (10:01)
[2016-12-08] MEDS ORDERED: MAGNESIUM SULF 50% (8.12 MEQ/2 ML-1 GM VIAL) IVPB ONE (10:01)
[2016-12-08] MEDS: levETIRAcetam 500 MG TABLET (FP) PO SCH (10:01)
[2016-12-08] MEDS: BACITRACIN 30 GM TUBE TOPICAL OINTMENT TP SCH (10:01)
[2016-12-08] MEDS: COLLAGENASE CLOSTRIDIUM HIST. 30 GRAMS TUBE TP SCH (10:05)
[2016-12-08] MEDS: KETOCONAZOLE 2% CREAM - 60GM TUBE TP SCH (10:05)
[2016-12-08] MEDS: NAPH,MB-DB/K PH,MBDB POWDER PACKET PO SCH (10:05)
[2016-12-08] MEDS ORDERED: POTASSIUM PHOSPHATE 40 MM in DEXTROSE 5%-WATER - 250 ML IVPB ONE (10:30)
[2016-12-08] MEDS ORDERED: POTASSIUM PHOSPHATE 40 MM in DEXTROSE 5%-WATER - 500 ML IVPB ONE (10:35)
[2016-12-08] MEDS: HYDROCORTISONE 10 MG TABLET PEG SCH (11:55)
--- NOTE | 2016-12-08 12:23 | PN ---
Progress Note (short form) - Note Progress Note: PULMONARY Vented on volume assist control with 40% fiO2. No fevers recorded. Last Vital Signs Temp Pulse Resp BP Pulse Ox 98.2 F 100 H 20 84/41 94 L 12/08/16 06:00 12/08/16 06:00 12/08/16 06:42 12/08/16 06:00 12/07/16 18:15 Gen: vented, poorly responsive Heart: RRR Lung: scattered rhonchi Abd: soft, nontender Ext: multiple ulcers, +anasarca CBC, BMP 12/08/16 06:00 12/08/16 06:00 Active Medications Albumin Human (Albumin Human 25%) 12.5 gm IVPB Q30M [facility] Stop: 12/08/16 18:46 Amino Acids (Prosource No Carb Liquid Pkt) 30 ml PO BID@0800,1730 [facility] Last Admin: 12/08/16 09:36 Dose: 30 ml Bacitracin (Bacitracin -) 1 applic TP DAILY [facility] Last Admin: 12/08/16 10:01 Dose: 1 applic Collagenase (Santyl -) 1 applic TP DAILY [facility] Last Admin: 12/08/16 10:05 Dose: 1 applic Epoetin Rigoberto (Procrit -) 10,000 unit IVPUSH ONCE ONE Stop: 12/08/16 17:03 Hydrocortisone (Cortef -) 25 mg PEG BID [facility] Last Admin: 12/08/16 11:55 Dose: 25 mg Hydrocortisone Sodium Succinate (Solu-Cortef -) 100 mg IVPUSH BID [facility] Last Admin: 12/08/16 10:01 Dose: 100 mg Tigecycline 50 mg/ Dextrose 100 mls @ 200 mls/hr IVPB BID@0600,1800 [facility] Last Admin: 12/08/16 05:51 Dose: 200 mls/hr Amino Acids (Clinimix -) 1,000 mls @ 30 mls/hr IV Q24H [facility] Last Admin: 12/07/16 21:09 Dose: 30 mls/hr Potassium Phosphate 40 mm/ (Dextrose) 513.3333 mls @ 62.5 mls/hr IVPB ONCE ONE Stop: 12/08/16 18:42 Last Admin: 12/08/16 11:52 Dose: 62.5 mls/hr Sodium Chloride (Normal Saline -) 500 mls @ 500 mls/hr IV ASDIR STA Stop: 12/08/16 13:18 Insulin Aspart (Novolog Vial Sliding Scale -) 1 vial SQ Q6HPO [facility] PRN Reason: Protocol Last Admin: 12/08/16 06:02 Dose: Not Given Ketoconazole (Nizoral 2% Cream -) 1 applic TP DAILY [facility] Last Admin: 12/08/16 10:05 Dose: 1 applic Levetiracetam (Keppra -) 500 mg PO DAILY [facility] Last Admin: 12/08/16 10:01 Dose: 500 mg Potassium Phos/Sodium Phos (Phos-Nak Packet -) 1 packet PO BID [facility] Last Admin: 12/08/16 10:05 Dose: 1 packet A/P Sacral Decubitus Ulcer Infection Gram Positive Bacteremia Septic Shock Pancytopenia ESRD on HD Chronic Hypotension h/o CVA Anoxic Encephalopathy - continue antibiotics per ID - wound care - midodrine - HD per renal - poor prognosis for any meaningful recovery, approaching medical futility, recommend palliative care as it appears that pt is decomposing - DVT/GI prophylaxis
[2016-12-08 12:39] LABS: PLATELET ESTIMATE MARKEDLY DECREASED (NORMAL)
[2016-12-08 13:05] VITALS: BP 66/41; PULSE 82; TEMP 94.1
--- NOTE | 2016-12-08 13:18 | PN ---
Addendum entered and electronically signed by Ros Dias RES 12/08/16 13: 30: notified that patient has no BP. chicken stuffer and pulm/critical care contacted. giving bolus of fluid and albumin Original Note: Physical Exam: SUBJECTIVE: Patient seen and examined Patient resting in bed, not responsive, no opening eyes spontaneously. 98.2 on john hugger. BP 84/51 (map 55) after hydrocortisone 100 and 1.5 L fluids. Has been hypoglycemic BGM 49 overnight s/p d50. No more bleeding in rectal tube. No further SZ activity. Edematous. PEG being used for meds. L fem central line in place and clean, no bleeding. OBJECTIVE: Vital Signs Period Temp Pulse Resp BP Sys/Vang Pulse Ox Last 24 Hr 94.1 F-98.9 F 74-107 12-35 66-105/38-59 94 GENERAL: unresponsive 3+ anasarca HEAD: Normal with no signs of trauma. EYES: sclera anicteric, conjunctiva clear. ENT: moist mucous membranes. NECK: supple. LUNGS: diffuse ronchi, trach, vent. HEART: Regular rate and rhythm, S1, S2 ABDOMEN: Soft, very edematous and because of it hard, no bowel sounds, feels hard because of edema. Peg in place. EXTREMITIES: 1+ pulses, warm, 3+ edema. b/l pressure ulcers on heels with black echar. clean dressing in place Sacrum: unstageable pressure ulcer with yellow echar, malodorous. NEUROLOGICAL: symmetrical face PSYCH: unable to assess SKIN: Warm, dry Laboratory Results - last 24 hr 12/05/16 12/07/16 12/07/16 12:04 17:49 19:36 WBC RBC Hgb Hct MCV MCHC RDW Plt Count MPV Neutrophils % Lymphocytes % Monocytes % Band Neutrophils Differential Comment Reactive Lymphocytes Platelet Estimate Hypochromic-Microcytic Anisocytosis Microcytosis Macrocytosis Morphology Comment Sodium Potassium Chloride Carbon Dioxide Anion Gap BUN Creatinine POC Glucometer 46 100 Random Glucose Calcium Phosphorus Magnesium Crossmatch See Detail 12/07/16 12/08/16 12/08/16 23:59 02:32 05:54 WBC RBC Hgb Hct MCV MCHC RDW Plt Count MPV Neutrophils % Lymphocytes % Monocytes % Band Neutrophils Differential Comment Reactive Lymphocytes Platelet Estimate Hypochromic-Microcytic Anisocytosis Microcytosis Macrocytosis Morphology Comment Sodium Potassium Chloride Carbon Dioxide Anion Gap BUN Creatinine POC Glucometer 74 89 48 Random Glucose Calcium Phosphorus Magnesium Crossmatch 12/08/16 12/08/16 12/08/16 06:00 06:00 07:26 WBC 0.7 L* D RBC 2.72 L Hgb 8.1 L Hct 24.9 L MCV 91.7 MCHC 32.6 RDW 25.1 H Plt Count 11 L* D MPV 10.0 Neutrophils % [employer] Lymphocytes % [employer] Monocytes % [employer] Band Neutrophils [employer] Differential Comment [employer] Reactive Lymphocytes [employer] Platelet Estimate Markedly decreased Hypochromic-Microcytic [employer] Anisocytosis [employer] Microcytosis [employer] Macrocytosis [employer] Morphology Comment [employer] Sodium 148 H Potassium 3.3 L Chloride 111 H Carbon Dioxide 19 L Anion Gap 18 H BUN 53 H Creatinine 1.8 H POC Glucometer 90 Random Glucose 49 L* D Calcium 7.3 L Phosphorus 2.2 L Magnesium 1.6 L Crossmatch 12/08/16 11:36 WBC RBC Hgb Hct MCV MCHC RDW Plt Count MPV Neutrophils % Lymphocytes % Monocytes % Band Neutrophils Differential Comment Reactive Lymphocytes Platelet Estimate Hypochromic-Microcytic Anisocytosis Microcytosis Macrocytosis Morphology Comment Sodium Potassium Chloride Carbon Dioxide Anion Gap BUN Creatinine POC Glucometer 115 Random Glucose Calcium Phosphorus Magnesium Crossmatch Active Medications Generic Name Dose Route Start Last Admin Trade Name Freq PRN Reason Stop Dose Admin Albumin Human 12.5 gm 12/08/16 17:15 Albumin Human 25% IVPB 12/08/16 18:46 Q30M STEVEN Albumin Human 25 gm 12/08/16 13:12 Plasbumin-5 - IVPB 12/08/16 13:13 ONCE ONE Amino Acids 30 ml 11/29/16 17:30 12/08/16 09:36 Prosource No Carb Liquid Pkt PO 30 ml BID@0800,1730 STEVEN Administration Bacitracin 1 applic 11/30/16 10:00 12/08/16 10:01 Bacitracin - TP 1 applic DAILY STEVEN Administration Collagenase 1 applic 11/30/16 10:00 12/08/16 10:05 Santyl - TP 1 applic DAILY STEVEN Administration Epoetin Rigoberto 10,000 unit 12/08/16 17:02 Procrit - IVPUSH 12/08/16 17:03 ONCE ONE Hydrocortisone 25 mg 12/06/16 22:00 12/08/16 11:55 Cortef - PEG 25 mg BID STEVEN Administration Hydrocortisone Sodium Succinate 100 mg 12/07/16 13:15 12/08/16 10:01 Solu-Cortef - IVPUSH 100 mg BID STEVEN Administration Tigecycline 50 mg/ Dextrose 100 mls @ 200 mls/hr 11/29/16 18:00 12/08/16 05:51 IVPB 200 mls/hr BID@0600,1800 STEVEN Administration Amino Acids 1,000 mls @ 30 mls/hr 11/29/16 19:00 12/07/16 21:09 Clinimix - IV 30 mls/hr Q24H STEVEN Administration Potassium Phosphate 40 mm/ 513.3333 mls @ 62.5 mls/hr 12/08/16 10:35 12/08/16 11:52 Dextrose IVPB 12/08/16 18:42 62.5 mls/hr ONCE ONE Administration Sodium Chloride 500 mls @ 500 mls/hr 12/08/16 13:05 Normal Saline - IV 12/08/16 14:04 ASDIR STA Insulin Aspart 1 vial 11/29/16 18:00 12/08/16 12:54 Novolog Vial Sliding Scale - SQ Not Given Q6HPO [facility] Protocol Ketoconazole 1 applic 11/30/16 10:00 12/08/16 10:05 Nizoral 2% Cream - TP 1 applic DAILY STEVEN Administration Levetiracetam 500 mg 12/06/16 11:15 12/08/16 10:01 Keppra - PO 500 mg DAILY STEVEN Administration Potassium Phos/Sodium Phos 1 packet 11/29/16 22:00 12/08/16 10:05 Phos-Nak Packet - PO 1 packet BID STEVEN Administration ASSESSMENT/PLAN: This is a 76 yo M with PMH of hypotension, HLD, hypothyroidism, DM, COPD, ESRD, GERD, s/p tracheostomy, s/p gastrostomy presented to ER from [facility] for coffee ground emesis. Septic shock -likely source sacral decubitus ulcer; ESBL bacteremia resolved -unstageable ulcer evaluated by wound care. no need for debridement at this time , dressing changes. -ID consult appreciated: tigecycline PEG leaking -GI on case -Lexi on case -may use peg for meds only. Tinea Corporis -lotrimin TP Acute on chronic Anemia due to Hematochezia -likely source UGIB same as admission -hgb stable 8.1 -monitor h/h -PPI per PEG worsening Pancytopenia -possible keppra side effect but requires keppra for SZ treatment, continue PO keppra per PEG -Platelets 11-transfuse 1 u platelets single donor -monitor CBC Hypothermia -john dodgeer PRN ESRD on HD -nephro consult appreciated -No HD because of low BP Chronic Hypotension -hydrocortisone 100 BID DIC -due to sepsis -trend PTT, fibrinogen -Heme consult apprecited -transfuse 2 u FFP DM -BGM q6 -sliding scale Hypoglycemia -d50 PRN Anoxic Encephalopathy -unresponsive -unlikely to have meaningful recovery -grave prognosis -palliative care consult spoke with family -Family wishes full code due to orthodoxy reasons FEN no IVF replete lytes prn osmolite Consulted medical ethics [phone] Dispo: 5s Problem List - Problems (1) GORDON (acute kidney injury) Code(s): N17.9 - ACUTE KIDNEY FAILURE, UNSPECIFIED (2) Anasarca Code(s): R60.1 - GENERALIZED EDEMA (3) Anemia Code(s): D64.9 - ANEMIA, UNSPECIFIED (4) CHF (congestive heart failure) Code(s): I50.9 - HEART FAILURE, UNSPECIFIED (5) CKD (chronic kidney disease) Code(s): N18.9 - CHRONIC KIDNEY DISEASE, UNSPECIFIED (6) Elevated INR Code(s): R79.1 - ABNORMAL COAGULATION PROFILE (7) Elevated brain natriuretic peptide (BNP) level Code(s): R79.89 - OTHER SPECIFIED ABNORMAL FINDINGS OF BLOOD CHEMISTRY (8) Fluid overload Code(s): E87.70 - FLUID OVERLOAD, UNSPECIFIED (9) History of CVA (cerebrovascular accident) Code(s): Z86.73 - PRSNL HX OF TIA (TIA), AND CEREB INFRC W/O RESID DEFICITS (10) Hypoalbuminemia Code(s): E88.09 - OTH DISORDERS OF PLASMA-PROTEIN METABOLISM, NEC (11) Hypotension Code(s): I95.9 - HYPOTENSION, UNSPECIFIED Qualifiers: Hypotension type: unspecified hypotension type Qualified Code(s): I95.9 - Hypotension, unspecified (12) Passes no urine Code(s): R34 - ANURIA AND OLIGURIA (13) Pressure ulcer Code(s): L89.90 - PRESSURE ULCER OF UNSPECIFIED SITE, UNSPECIFIED STAGE (14) Pressure ulcer of ankle Code(s): L89.509 - PRESSURE ULCER OF UNSPECIFIED ANKLE, UNSPECIFIED STAGE (15) Pressure ulcer of back Code(s): L89.109 - PRESSURE ULCER OF UNSP PART OF BACK, UNSPECIFIED STAGE (16) Sacral decubitus ulcer, stage IV Code(s): L89.154 - PRESSURE ULCER OF SACRAL REGION, STAGE 4 (17) Sepsis Code(s): A41.9 - SEPSIS, UNSPECIFIED ORGANISM Qualifiers: Sepsis type: sepsis due to unspecified organism Qualified Code(s): A41.9 - Sepsis, unspecified organism (18) Septic shock Code(s): A41.9 - SEPSIS, UNSPECIFIED ORGANISM R65.21 - SEVERE SEPSIS WITH SEPTIC SHOCK (19) Thrombocytopenia Code(s): D69.6 - THROMBOCYTOPENIA, UNSPECIFIED (20) Transaminitis Code(s): R74.0 - NONSPEC ELEV OF LEVELS OF TRANSAMNS & LACTIC ACID DEHYDRGNSE (21) Upper GI bleed Code(s): K92.2 - GASTROINTESTINAL HEMORRHAGE, UNSPECIFIED Visit type - Emergency Visit Emergency Visit: Yes ED Registration Date: 11/12/16 Care time: The patient presented to the Emergency Department on the above date and was hospitalized for further evaluation of their emergent condition. - New Patient This patient is new to me today: No - Critical Care Critical Care patient: No - Discharge Referral Referred to [facility] Med P.C.: No
[2016-12-08] MEDS ORDERED: ALBUMIN HUMAN 5% 250 ML IV SOLUTION IVPB ONE (13:30)
--- NOTE | 2016-12-08 13:39 | PN ---
Progress Note, Physician History of Present Illness: Pt seen and examined at bedside. Pt is hypotensive. - Current Medication List Current Medications: Active Medications Albumin Human (Albumin Human 25%) 12.5 gm IVPB Q30M STEVEN Stop: 12/08/16 18:46 Amino Acids (Prosource No Carb Liquid Pkt) 30 ml PO BID@0800,1730 [facility] Last Admin: 12/08/16 09:36 Dose: 30 ml Bacitracin (Bacitracin -) 1 applic TP DAILY [facility] Last Admin: 12/08/16 10:01 Dose: 1 applic Collagenase (Santyl -) 1 applic TP DAILY [facility] Last Admin: 12/08/16 10:05 Dose: 1 applic Epoetin Rigoberto (Procrit -) 10,000 unit IVPUSH ONCE ONE Stop: 12/08/16 17:03 Hydrocortisone (Cortef -) 25 mg PEG BID [facility] Last Admin: 12/08/16 11:55 Dose: 25 mg Hydrocortisone Sodium Succinate (Solu-Cortef -) 100 mg IVPUSH BID [facility] Last Admin: 12/08/16 10:01 Dose: 100 mg Tigecycline 50 mg/ Dextrose 100 mls @ 200 mls/hr IVPB BID@0600,1800 [facility] Last Admin: 12/08/16 05:51 Dose: 200 mls/hr Amino Acids (Clinimix -) 1,000 mls @ 30 mls/hr IV Q24H [facility] Last Admin: 12/07/16 21:09 Dose: 30 mls/hr Potassium Phosphate 40 mm/ (Dextrose) 513.3333 mls @ 62.5 mls/hr IVPB ONCE ONE Stop: 12/08/16 18:42 Last Admin: 12/08/16 11:52 Dose: 62.5 mls/hr Sodium Chloride (Normal Saline -) 500 mls @ 500 mls/hr IV ASDIR STA Stop: 12/08/16 14:04 Insulin Aspart (Novolog Vial Sliding Scale -) 1 vial SQ Q6HPO [facility] PRN Reason: Protocol Last Admin: 12/08/16 12:54 Dose: Not Given Ketoconazole (Nizoral 2% Cream -) 1 applic TP DAILY [facility] Last Admin: 12/08/16 10:05 Dose: 1 applic Levetiracetam (Keppra -) 500 mg PO DAILY [facility] Last Admin: 12/08/16 10:01 Dose: 500 mg Potassium Phos/Sodium Phos (Phos-Nak Packet -) 1 packet PO BID STEVEN Last Admin: 12/08/16 10:05 Dose: 1 packet - Objective Vital Signs: Vital Signs Temperature 94.1 F L 12/08/16 12:00 Pulse Rate 82 12/08/16 12:00 Respiratory Rate 16 12/08/16 12:00 Blood Pressure 66/41 12/08/16 12:00 O2 Sat by Pulse Oximetry (%) 94 L 12/07/16 18:15 Constitutional: Yes: Calm HENT: Yes: Other (trache) Cardiovascular: Yes: S1, S2 Respiratory: Yes: Mechanically Ventilated Gastrointestinal: Yes: Other (peg) Genitourinary: Yes: Anuria Musculoskeletal: Yes: Muscle Weakness Edema: Yes Edema: LLE: 3+, RLE: 3+ Neurological: Yes: Lethargy Labs: CBC, BMP 12/08/16 06:00 12/08/16 06:00 INR, PTT INR 2.23 (0.82-1.09) H 12/07/16 09:45 Fibrinogen 151.0 mg/dL (238-498) L 12/07/16 09:45 Problem List - Problems (1) GORDON (acute kidney injury) Code(s): N17.9 - ACUTE KIDNEY FAILURE, UNSPECIFIED (2) Anasarca Code(s): R60.1 - GENERALIZED EDEMA (3) Anemia Code(s): D64.9 - ANEMIA, UNSPECIFIED (4) CHF (congestive heart failure) Code(s): I50.9 - HEART FAILURE, UNSPECIFIED (5) CKD (chronic kidney disease) Code(s): N18.9 - CHRONIC KIDNEY DISEASE, UNSPECIFIED (6) Fluid overload Code(s): E87.70 - FLUID OVERLOAD, UNSPECIFIED (7) History of CVA (cerebrovascular accident) Code(s): Z86.73 - PRSNL HX OF TIA (TIA), AND CEREB INFRC W/O RESID DEFICITS Assessment/Plan Current Medications Generic Name Dose Route Start Last Admin Trade Name Freq PRN Reason Stop Dose Admin Albumin Human 12.5 gm 12/08/16 17:15 Albumin Human 25% IVPB 12/08/16 18:46 Q30M [facility] Amino Acids 30 ml 11/29/16 17:30 12/08/16 09:36 Prosource No Carb Liquid Pkt PO 30 ml BID@0800,1730 STEVEN Administration Bacitracin 1 applic 11/30/16 10:00 12/08/16 10:01 Bacitracin - TP 1 applic DAILY STEVEN Administration Collagenase 1 applic 11/30/16 10:00 12/08/16 10:05 Santyl - TP 1 applic DAILY STEVEN Administration Epoetin Rigoberto 10,000 unit 12/08/16 17:02 Procrit - IVPUSH 12/08/16 17:03 ONCE ONE Hydrocortisone 25 mg 12/06/16 22:00 12/08/16 11:55 Cortef - PEG 25 mg BID STEVEN Administration Hydrocortisone Sodium Succinate 100 mg 12/07/16 13:15 12/08/16 10:01 Solu-Cortef - IVPUSH 100 mg BID STEVEN Administration Tigecycline 50 mg/ Dextrose 100 mls @ 200 mls/hr 11/29/16 18:00 12/08/16 05:51 IVPB 200 mls/hr BID@0600,1800 STEVEN Administration Amino Acids 1,000 mls @ 30 mls/hr 11/29/16 19:00 12/07/16 21:09 Clinimix - IV 30 mls/hr Q24H STEVEN Administration Potassium Phosphate 40 mm/ 513.3333 mls @ 62.5 mls/hr 12/08/16 10:35 12/08/16 11:52 Dextrose IVPB 12/08/16 18:42 62.5 mls/hr ONCE ONE Administration Sodium Chloride 500 mls @ 500 mls/hr 12/08/16 13:05 Normal Saline - IV 12/08/16 14:04 ASDIR STA Insulin Aspart 1 vial 11/29/16 18:00 12/08/16 12:54 Novolog Vial Sliding Scale - SQ Not Given Q6HPO [facility] Protocol Ketoconazole 1 applic 11/30/16 10:00 12/08/16 10:05 Nizoral 2% Cream - TP 1 applic DAILY STEVEN Administration Levetiracetam 500 mg 12/06/16 11:15 12/08/16 10:01 Keppra - PO 500 mg DAILY STEVEN Administration Potassium Phos/Sodium Phos 1 packet 11/29/16 22:00 12/08/16 10:05 Phos-Nak Packet - PO 1 packet BID STEVEN Administration Impression 1. ESRD 2. hypotension 3. chronic respiratory failure 4. sepsis 5. Anemia 6. GI bleed 7. CVA 8. DM 9. Hypothyroidism 10. pancytopenia Plan - pts blood pressure is not stable to start HD - cont steroids - agree with bolus - prognosis is grave - vent support - epogen for anemia - discussed with medical team today Dr Mireles
--- NOTE | 2016-12-08 14:12 | PN ---
Progress Note (short form) - Note Progress Note: CODE 99/ NOTE Responded to code 99, pt found pulseless and unresponsive. Asystole noted on monitor, ACLS initiated, given 3 rounds of epinephrine with persistent asystole. No spontaneous breaths, pt pulseless witih asystole on monitor. Pupils fixed and dilated. Pt pronounced at 1:46PM. Family to be notified. Landon Aranda MD
[2016-12-08] MEDS ORDERED: EPOETIN ALFA 10,000 UNIT/1 ML VIAL IVPUSH ONE (17:02)
[2016-12-08] MEDS ORDERED: ALBUMIN HUMAN 25% 12.5 GM/50 ML VIAL IVPB SCH (17:15)
--- NOTE | 2016-12-08 19:02 | PN ---
Teaching Attending Note Name of Resident: Ros Dias ATTENDING PHYSICIAN STATEMENT I saw and evaluated the patient. I reviewed the resident's note and discussed the case with the resident. I agree with the resident's findings and plan as documented. Patient was seen earlier today with the resident. Comfortable unresponsive with no acute distress. Vital Signs Temperature 94.1 F L 12/08/16 12:00 Pulse Rate 82 12/08/16 12:00 Respiratory Rate 16 12/08/16 12:00 Blood Pressure 105/47 12/08/16 12:00 O2 Sat by Pulse Oximetry (%) 94 L 12/07/16 18:15 recheck Blood pressure earlier today 105/47. CBCD WBC 0.7 K/mm3 (4.0-10.0) L* D 12/08/16 06:00 RBC 2.72 M/mm3 (4.00-5.60) L 12/08/16 06:00 Hgb 8.1 GM/dL (11.7-16.9) L 12/08/16 06:00 Hct 24.9 % (35.4-49) L 12/08/16 06:00 MCV 91.7 fl (80-96) 12/08/16 06:00 MCHC 32.6 g/dl (32.0-35.9) 12/08/16 06:00 RDW 25.1 % (11.9-15.9) H 12/08/16 06:00 Plt Count 11 K/MM3 (134-434) L* D 12/08/16 06:00 MPV 10.0 fl (7.5-11.1) 12/08/16 06:00 CMP Sodium 148 mmol/L (136-145) H 12/08/16 06:00 Potassium 3.3 mmol/L (3.5-5.1) L 12/08/16 06:00 Chloride 111 mmol/L (98-107) H 12/08/16 06:00 Carbon Dioxide 19 mmol/L (21-32) L 12/08/16 06:00 Anion Gap 18 (8-16) H 12/08/16 06:00 BUN 53 mg/dL (7-18) H 12/08/16 06:00 Creatinine 1.8 mg/dL (0.7-1.3) H 12/08/16 06:00 Creat Clearance w eGFR 34.55 (>60) 11/28/16 05:20 Random Glucose 49 mg/dL (74-106) L* D 12/08/16 06:00 Calcium 7.3 mg/dL (8.5-10.1) L 12/08/16 06:00 Total Bilirubin 0.9 mg/dL (0.2-1.0) 11/28/16 05:20 AST 16 U/L (15-37) 11/28/16 05:20 ALT 13 U/L (12-78) 11/28/16 05:20 Alkaline Phosphatase 137 U/L (45-117) H 11/28/16 05:20 Total Protein 4.7 g/dl (6.4-8.2) L 11/28/16 05:20 Albumin 2.0 g/dl (3.4-5.0) L 11/30/16 06:10 CARDIAC ENZYMES Creatine Kinase 28 IU/L (39-308) L 11/12/16 01:41 Troponin I 0.08 ng/ml (0.00-0.05) H D 11/12/16 08:10 Current Medications Generic Name Dose Route Start Last Admin Trade Name Freq PRN Reason Stop Dose Admin Albumin Human 12.5 gm 12/08/16 17:15 Albumin Human 25% IVPB 12/08/16 18:46 Q30M STEVEN Amino Acids 30 ml 11/29/16 17:30 12/08/16 09:36 Prosource No Carb Liquid Pkt PO 30 ml BID@0800,1730 STEVEN Administration Bacitracin 1 applic 11/30/16 10:00 12/08/16 10:01 Bacitracin - TP 1 applic DAILY STEVEN Administration Collagenase 1 applic 11/30/16 10:00 12/08/16 10:05 Santyl - TP 1 applic DAILY STEVEN Administration Epoetin Rigoberto 10,000 unit 12/08/16 17:02 Procrit - IVPUSH 12/08/16 17:03 ONCE ONE Hydrocortisone 25 mg 12/06/16 22:00 12/08/16 11:55 Cortef - PEG 25 mg BID STEVEN Administration Hydrocortisone Sodium Succinate 100 mg 12/07/16 13:15 12/08/16 10:01 Solu-Cortef - IVPUSH 100 mg BID STEVEN Administration Tigecycline 50 mg/ Dextrose 100 mls @ 200 mls/hr 11/29/16 18:00 12/08/16 05:51 IVPB 200 mls/hr BID@0600,1800 STEVEN Administration Amino Acids 1,000 mls @ 30 mls/hr 11/29/16 19:00 12/07/16 21:09 Clinimix - IV 30 mls/hr Q24H STEVEN Administration Insulin Aspart 1 vial 11/29/16 18:00 12/08/16 12:54 Novolog Vial Sliding Scale - SQ Not Given Q6HPO [facility] Protocol Ketoconazole 1 applic 11/30/16 10:00 12/08/16 10:05 Nizoral 2% Cream - TP 1 applic DAILY STEVEN Administration Levetiracetam 500 mg 12/06/16 11:15 12/08/16 10:01 Keppra - PO 500 mg DAILY STEVEN Administration Potassium Phos/Sodium Phos 1 packet 11/29/16 22:00 12/08/16 10:05 Phos-Nak Packet - PO 1 packet BID STEVEN Administration Home Medications Medication Instructions Recorded Atorvastatin Ca [Lipitor] 80 mg PO HS 11/12/16 Esomeprazole Magnesium 40 mg PO DAILY 11/12/16 Ferrous Sulfate 325 mg PO DAILY 11/12/16 Hydrocortisone 20 mg PO DAILY 11/12/16 Levothyroxine [Synthroid -] 50 mcg PO DAILY 11/12/16 Magnesium Hydroxide [Milk of 400 mg PO DAILY 11/12/16 Magnesia] Midodrine HCl 5 mg PO DAILY 11/12/16 Sevelamer Carbonate [Renvela] 800 mg PO DAILY 11/12/16 Vitamin B Comp W-C [Nephro-Daily -] 1 tablet PO DAILY 11/12/16 ASSESSMENT AND PLAN: 76 y/o man with h/o Anoxic brain injury, chronic hypotension , HLP, COPD , chronic resp failure s/p trach, DM , hypothyroidism and other medical problems , who was brought from a [place] due to coffee ground emesis .He was found to be in septic shock. # Acute thrombocytopenia will transfuse single donor platelets # Also INR is 2.27 will give him 2 units of FFP # Hypotension given a bolus of IVF 0.9NS , ON IV solu cortef as well #Septic shock : likely source is the decub ulcer and PNA . On tigacycline as per ID,s/p IV access by Dr.Patel Mueller . # Possible Seizure activity: due to his anoxic brain injury , hypothermia on Keppra continue per to PEG tube # Dysfunctional peg . will use PEG for meds only . keep NPO due to GI bleed . # ESRD: on HD continue, nephro # Electrolyte imbalance being repleted # Episodes of PAF. not a candidate for BB or AC at this point .Poor prognosis.
--- NOTE | 2016-12-09 07:38 | DS ---
Physical Exam: SUBJECTIVE: Patient seen and examined . not breating, blue, cool. not responsive to painful stimulius. no pulse OBJECTIVE: Vital Signs Period Temp Pulse Resp BP Sys/Vang Pulse Ox Last 24 Hr 94.1 F-98.1 F 82-101 12-16 66-105/41-59 PHYSICAL EXAM GENERAL: unresponsive HEAD: Normal with no signs of trauma. EYES: fixed ENT: moist mucous membranes. NECK: rigid LUNGS: no breath sound HEART: no heart sounds ABDOMEN: no bowel sounds EXTREMITIES: no pulses NEUROLOGICAL: absent corneal reflex PSYCH: na SKIN: cool, blue LABS Laboratory Results - last 24 hr 12/05/16 12/07/16 12/08/16 12:04 17:49 06:00 WBC 0.7 L* D RBC 2.72 L Hgb 8.1 L Hct 24.9 L MCV 91.7 MCHC 32.6 RDW 25.1 H Plt Count 11 L* D MPV 10.0 Neutrophils % 52.0 D Lymphocytes % 8.0 Monocytes % 6.0 D Band Neutrophils 28.0 H D Nucleated RBCs 6 H Differential Comment Manual diff done Reactive Lymphocytes 6 Platelet Estimate Markedly decreased Hypochromic-Microcytic Reservationist Anisocytosis Reservationist Microcytosis Reservationist Macrocytosis Reservationist Morphology Comment Reservationist Sodium Potassium Chloride Carbon Dioxide Anion Gap BUN Creatinine POC Glucometer 46 Random Glucose Calcium Phosphorus Magnesium Blood Type O POSITIVE Antibody Screen Negative Crossmatch See Detail 12/08/16 12/08/16 12/08/16 06:00 07:26 11:36 WBC RBC Hgb Hct MCV MCHC RDW Plt Count MPV Neutrophils % Lymphocytes % Monocytes % Band Neutrophils Nucleated RBCs Differential Comment Reactive Lymphocytes Platelet Estimate Hypochromic-Microcytic Anisocytosis Microcytosis Macrocytosis Morphology Comment Sodium 148 H Potassium 3.3 L Chloride 111 H Carbon Dioxide 19 L Anion Gap 18 H BUN 53 H Creatinine 1.8 H POC Glucometer 90 115 Random Glucose 49 L* D Calcium 7.3 L Phosphorus 2.2 L Magnesium 1.6 L Blood Type Antibody Screen Crossmatch HOSPITAL COURSE: Date of Admission:11/12/16 76 y/o M w/PMH of hypotension, HLD, hypothyroidism, DM, COPD, ESRD, GERD, s/p tracheostomy, s/p gastrostomy presented to ER from [facility] for coffee ground emesis. Pt is non-responsive and history is unable to be obtained. Spoke w/ pt's son Matthew Jimenez who noted that his father had CVA in 2009 after which he was placed in [place] for rehab and was continuing to improve but not returning back to baseline. Pt had tracheostomy and g-tube placed approximately 1 year ago. He was then in [place] where his health declined. He was recently at [facility] and discharged to [place]. He has been at for approximately 2 months. Before this he was at [facility] for approximately one year. In approx december 2015 son noted ulcers and took pictures and says since then they have worsened. After being hospitalized family requested a change of NH and was sent to [facility] 2 months ago. Patient found to be severely pancytopenic, requiring multiple transfusions of prbcs, ffp and platelets. he also had an ongoing GIB treated with ppi drip. He also had severe sepsis/shock, DIC due to decubitus ulcer infected with multidrug resistant bacteria. he was treated with IV abx. patient was in chronic renal failure and anuric, treated with dialysis. throughtout hoospitalization he was in and out of ICU, on and off pressors. It was very difficult maintaining his blood pressure since he could not tolerate a lot of fluid. He also lost all iv access and his SVC cloted up, a central line was finally plaved in his L femoral vein. patient eventually deteriorated without resonse to fluids, steroids and went into asystole. he was coded but could not be revived. Date of Discharge: 12/09/16 Minutes to complete discharge: 65 (na) <Ros Dias - Last Filed: 12/09/16 19:04> Physical Exam: SUBJECTIVE: Patient seen and examined OBJECTIVE: PHYSICAL EXAM GENERAL: The patient is awake, alert, and fully oriented, in no acute distress. HEAD: Normal with no signs of trauma. EYES: PERRL, extraocular movements intact, sclera anicteric, conjunctiva clear. ENT: Ears normal, nares patent, oropharynx clear without exudates, moist mucous membranes. NECK: Trachea midline, full range of motion, supple. LUNGS: Breath sounds equal, clear to auscultation bilaterally, no wheezes, no crackles, no accessory muscle use. HEART: Regular rate and rhythm, S1, S2 without murmur, rub or gallop. ABDOMEN: Soft, nontender, nondistended, normoactive bowel sounds, no guarding, no rebound, no hepatosplenomegaly, no masses. EXTREMITIES: 2+ pulses, warm, well-perfused, no edema. NEUROLOGICAL: Cranial nerves II through XII grossly intact. Normal speech, gait not observed. PSYCH: Normal mood, normal affect. SKIN: Warm, dry, normal turgor, no rashes or lesions noted. LABS HOSPITAL COURSE: Date of Admission:11/12/16 Date of Discharge: 12/22/16 Patient was very difficult to maintain his blood pressure since Patient was a dialysis patient with ESRD and could not tolerate a lot of fluid. Patient also lost all his iv access and his SVC cloted up, a central line was placed in his L femoral vein by the Vascular surgeon;Dr. Ervin Doyle. <Jason Mattson - Last Filed: 12/22/16 16:42> Discharge Summary Reason For Visit: SEPSIS,HYOTENSION,HYPOTHERMIA - Home Medications Comprehensive Discharge Medication List: Ambulatory Orders Atorvastatin Ca [Lipitor] 80 mg PO HS 11/12/16 Esomeprazole Magnesium 40 mg PO DAILY 11/12/16 Ferrous Sulfate 325 mg PO DAILY 11/12/16 Hydrocortisone 20 mg PO DAILY 11/12/16 Levothyroxine [Synthroid -] 50 mcg PO DAILY 11/12/16 Magnesium Hydroxide [Milk of Magnesia] 400 mg PO DAILY 11/12/16 Midodrine HCl 5 mg PO DAILY 11/12/16 Sevelamer Carbonate [Renvela] 800 mg PO DAILY 11/12/16 Vitamin B Comp W-C [Nephro-Daily -] 1 tablet PO DAILY 11/12/16 <Ros Dias - Last Filed: 12/09/16 19:04> - Home Medications Comprehensive Discharge Medication List: Ambulatory Orders Atorvastatin Ca [Lipitor] 80 mg PO HS 11/12/16 Esomeprazole Magnesium 40 mg PO DAILY 11/12/16 Ferrous Sulfate 325 mg PO DAILY 11/12/16 Hydrocortisone 20 mg PO DAILY 11/12/16 Levothyroxine [Synthroid -] 50 mcg PO DAILY 11/12/16 Magnesium Hydroxide [Milk of Magnesia] 400 mg PO DAILY 11/12/16 Midodrine HCl 5 mg PO DAILY 11/12/16 Sevelamer Carbonate [Renvela] 800 mg PO DAILY 11/12/16 Vitamin B Comp W-C [Nephro-Daily -] 1 tablet PO DAILY 11/12/16 <Jason Mattson - Last Filed: 12/22/16 16:42> Condition: Critical - Instructions Referrals: Naty Kirby MD [Primary Care Provider] - Disposition: Problem List - Problems (1) GORDON (acute kidney injury) Code(s): N17.9 - ACUTE KIDNEY FAILURE, UNSPECIFIED (2) Anasarca Code(s): R60.1 - GENERALIZED EDEMA (3) Anemia Code(s): D64.9 - ANEMIA, UNSPECIFIED (4) CHF (congestive heart failure) Code(s): I50.9 - HEART FAILURE, UNSPECIFIED (5) CKD (chronic kidney disease) Code(s): N18.9 - CHRONIC KIDNEY DISEASE, UNSPECIFIED (6) Elevated INR Code(s): R79.1 - ABNORMAL COAGULATION PROFILE (7) Elevated brain natriuretic peptide (BNP) level Code(s): R79.89 - OTHER SPECIFIED ABNORMAL FINDINGS OF BLOOD CHEMISTRY (8) Fluid overload Code(s): E87.70 - FLUID OVERLOAD, UNSPECIFIED (9) History of CVA (cerebrovascular accident) Code(s): Z86.73 - PRSNL HX OF TIA (TIA), AND CEREB INFRC W/O RESID DEFICITS (10) Hypoalbuminemia Code(s): E88.09 - OTH DISORDERS OF PLASMA-PROTEIN METABOLISM, NEC (11) Hypotension Code(s): I95.9 - HYPOTENSION, UNSPECIFIED Qualifiers: Hypotension type: unspecified hypotension type Qualified Code(s): I95.9 - Hypotension, unspecified (12) Passes no urine Code(s): R34 - ANURIA AND OLIGURIA (13) Pressure ulcer Code(s): L89.90 - PRESSURE ULCER OF UNSPECIFIED SITE, UNSPECIFIED STAGE (14) Pressure ulcer of ankle Code(s): L89.509 - PRESSURE ULCER OF UNSPECIFIED ANKLE, UNSPECIFIED STAGE (15) Pressure ulcer of back Code(s): L89.109 - PRESSURE ULCER OF UNSP PART OF BACK, UNSPECIFIED STAGE (16) Sacral decubitus ulcer, stage IV Code(s): L89.154 - PRESSURE ULCER OF SACRAL REGION, STAGE 4 (17) Sepsis Code(s): A41.9 - SEPSIS, UNSPECIFIED ORGANISM Qualifiers: Sepsis type: sepsis due to unspecified organism Qualified Code(s): A41.9 - Sepsis, unspecified organism (18) Septic shock Code(s): A41.9 - SEPSIS, UNSPECIFIED ORGANISM R65.21 - SEVERE SEPSIS WITH SEPTIC SHOCK (19) Thrombocytopenia Code(s): D69.6 - THROMBOCYTOPENIA, UNSPECIFIED (20) Transaminitis Code(s): R74.0 - NONSPEC ELEV OF LEVELS OF TRANSAMNS & LACTIC ACID DEHYDRGNSE (21) Upper GI bleed Code(s): K92.2 - GASTROINTESTINAL HEMORRHAGE, UNSPECIFIED <Ros Dias - Last Filed: 12/09/16 19:04> This patient is new to me today: No Emergency Visit: Yes ED Registration Date: 11/12/16 Care time: The patient presented to the Emergency Department on the above date and was hospitalized for further evaluation of their emergent condition. Critical Care patient: Yes Total Critical Care Time (in minutes): 60 Critical Care Statement: The care of this patient involved high complexity decision making to prevent further life threatening deterioration of the patient 's condition and/or to evalute & treat vital organ system(s) failure or risk of failure. - Discharge Referral Referred to [facility] No <Ros Dias - Last Filed: 12/09/16 19:04>
--- NOTE | 2016-12-12 09:52 | PN ---
Progress Note, Physician History of Present Illness: continues to be critical no improvement hypotensive hypothermic - Objective Vital Signs: Vital Signs Temperature 94.1 F L 12/08/16 12:00 Pulse Rate 82 12/08/16 12:00 Respiratory Rate 16 12/08/16 12:00 Blood Pressure 66/41 12/08/16 12:00 O2 Sat by Pulse Oximetry (%) 94 L 12/07/16 18:15 Constitutional: Yes: Other Cardiovascular: Yes: Regular Rate and Rhythm, Bradycardia Respiratory: Yes: Mechanically Ventilated, Other (trach) Gastrointestinal: Yes: Soft, Hypoactive Bowel Sounds, Other (peg in place) Musculoskeletal: Yes: Other Extremities: Yes: Other Wound/Incision: Yes: Draining (minimal) Neurological: Yes: Other Labs: CBC, BMP 12/08/16 06:00 12/08/16 06:00 INR, PTT INR 2.23 (0.82-1.09) H 12/07/16 09:45 Fibrinogen 151.0 mg/dL (238-498) L 12/07/16 09:45 Assessment/Plan decubitus ulcer multiple pressure ulcer infected peg tube site septic shock lactic acidosis hypotension hypothermia esrd cva gram positive bacteremia rash plan continue current mgmt monitor blood pressure patients prognosis is poor continue maintaining body temperature awaiting for final plan
== END 2016-12-08 13:45 | disposition expired | DRG 870 ==
LOC: JER 01:17 → JERBED 03:39 → JICU 07:15 → J5S 11-15 21:07 → JICU 11-25 03:11 → J5S 11-29 16:47
PROVIDERS: ADMIT Internal Medicine; ATTEND Internal Medicine
PROC: 5A1955Z Respiratory Ventilation, Greater than 96 Consecutive Hours (ICD-10-PCS; principal; 2016-11-12)
PROC: 30233N1 Transfusion of Nonautologous Red Blood Cells into Peripheral Vein, Percutaneous Approach (ICD-10-PCS; 2016-11-13)
PROC: 30233L1 Transfusion of Nonautologous Fresh Plasma into Peripheral Vein, Percutaneous Approach (ICD-10-PCS; 2016-11-13)
PROC: 5A1D60Z (ICD-10-PCS; 2016-11-14)
PROC: 30233R1 Transfusion of Nonautologous Platelets into Peripheral Vein, Percutaneous Approach (ICD-10-PCS; 2016-11-14)
PROC: 3E0H76Z Introduction of Nutritional Substance into Lower GI, Via Natural or Artificial Opening (ICD-10-PCS; 2016-11-16)
PROC: 05HN33Z Insertion of Infusion Device into Left Internal Jugular Vein, Percutaneous Approach (ICD-10-PCS; 2016-11-25)
PROC: 06HN33Z Insertion of Infusion Device into Left Femoral Vein, Percutaneous Approach (ICD-10-PCS; 2016-11-25)
PROC: 05HM33Z Insertion of Infusion Device into Right Internal Jugular Vein, Percutaneous Approach (ICD-10-PCS; 2016-12-06)
PROC: 06HN33Z Insertion of Infusion Device into Left Femoral Vein, Percutaneous Approach (ICD-10-PCS; 2016-12-07)
PROC: B51CZZA Fluoroscopy of Left Lower Extremity Veins, Guidance (ICD-10-PCS; 2016-12-07)
PROC: 5A12012 Performance of Cardiac Output, Single, Manual (ICD-10-PCS; 2016-12-08)
DX: A41.51 Sepsis due to Escherichia coli [E. coli] (principal); R65.21 Severe sepsis with septic shock; D65 Disseminated intravascular coagulation [defibrination syndrome]; G93.49 Other encephalopathy; N18.6 End stage renal disease; L89.154 Pressure ulcer of sacral region, stage 4; L89.223 Pressure ulcer of left hip, stage 3; L89.113 Pressure ulcer of right upper back, stage 3; J96.00 Acute respiratory failure, unspecified whether with hypoxia or hypercapnia; E46 Unspecified protein-calorie malnutrition; K92.2 Gastrointestinal hemorrhage, unspecified; N17.9 Acute kidney failure, unspecified; E87.2 Acidosis; J96.10 Chronic respiratory failure, unspecified whether with hypoxia or hypercapnia; I13.2 Hypertensive heart and chronic kidney disease with heart failure and with stage 5 chronic kidney disease, or end stage renal disease; D61.818 Other pancytopenia; G93.1 Anoxic brain damage, not elsewhere classified; E87.0 Hyperosmolality and hypernatremia; G40.89 Other seizures; K94.22 Gastrostomy infection; K94.23 Gastrostomy malfunction; E78.5 Hyperlipidemia, unspecified; E03.9 Hypothyroidism, unspecified; J44.9 Chronic obstructive pulmonary disease, unspecified; K21.9 Gastro-esophageal reflux disease without esophagitis; D69.6 Thrombocytopenia, unspecified; R68.0 Hypothermia, not associated with low environmental temperature; R00.1 Bradycardia, unspecified; R74.0 Nonspecific elevation of levels of transaminase and lactic acid dehydrogenase [LDH]; E11.22 Type 2 diabetes mellitus with diabetic chronic kidney disease; E87.70 Fluid overload, unspecified; I50.9 Heart failure, unspecified; I48.0 Paroxysmal atrial fibrillation; R21 Rash and other nonspecific skin eruption; E87.6 Hypokalemia; D63.8 Anemia in other chronic diseases classified elsewhere; L89.212 Pressure ulcer of right hip, stage 2; L89.620 Pressure ulcer of left heel, unstageable; B35.4 Tinea corporis; L89.610 Pressure ulcer of right heel, unstageable; Z93.1 Gastrostomy status; Z86.73 Personal history of transient ischemic attack (TIA), and cerebral infarction without residual deficits; Z93.0 Tracheostomy status; Z99.2 Dependence on renal dialysis; Y83.8 Other surgical procedures as the cause of abnormal reaction of the patient, or of later complication, without mention of misadventure at the time of the procedure
CPT/HCPCS: 36415; 36430; 36600; 71010-TC; 74000-TC; 76705-TC; 76775-TC; 76856-TC; 80048; 80053; 82040; 82272; 82533; 82550; 82565; 82607; 82728; 82747; 82803; 83010; 83540; 83550; 83605; 83615; 83690; 83735; 83880; 84100; 84132; 84439; 84443; 84481; 84484; 84520; 85014; 85025; 85027; 85362; 85379; 85384; 85610; 85730; 86704; 86706; 86708; 86850; 86880; 86900; 86901; 86922; 87040; 87070; 87186; 87205; 87324; 87340; 87449; 93005; 93010; 93306-TC; 94002; 94640; 99285-25; J0885; J3243; P9017; P9034; P9038; P9047; P9058